=== PATIENT | male | born 1970 | race Caucasian/White ===

== ENCOUNTER 2022-08-28 13:02 | Outpatient (OUT) | payer OTHER, SELFPAY ==
[2022-08-28 13:23] LABS: Basophils Percent Auto 0.3 % (0.2-2.0); Eosinophils Absolute Auto 0.5 10^3/uL (0.0-0.7); Eosinophils Percent Auto 7.9 % (0.9-7.0); Hematocrit 46.5 % (42.0-54.0); Hemoglobin 15.4 g/dL (14.0-18.0); Immature Granulocytes Abs Auto 0.02 10^3/uL (0.00-0.03); Immature Granulocytes Pct Auto 0.3 % (0.0-0.5); Lymphocytes Absolute Auto 2.4 10^3/uL (1.2-3.8); Lymphocytes Percent Auto 35.4 % (20.5-60.0); Mean Corpuscular HGB Conc 33.1 g/dL (29.9-35.2); Mean Corpuscular Hemoglobin 30.7 pg (25.9-34.0); Mean Corpuscular Volume 92.8 fL (80.0-94.0); Mean Platelet Volume 8.3 fL (9.5-13.5); Monocytes Absolute Auto 0.5 10^3/uL (0.3-0.8); Monocytes Percent Auto 6.6 % (1.7-12.0); Neutrophils Absolute Auto 3.4 10^3/uL (1.4-6.5); Neutrophils Percent Auto 49.5 % (43.0-75.0); Platelet Count 277 10^3/uL (150-450); Red Blood Count 5.01 10^6/uL (4.70-6.10); Red Cell Distribution Width 13.3 % (11.0-15.0); White Blood Count 6.9 10^3/uL (4.0-11.0)
[2022-08-28 13:52] LABS: BUN Creatinine Ratio 9.7; Calcium 9.3 mg/dL (8.5-10.1); Carbon Dioxide 29.2 mmol/L (21.0-32.0); Chloride 101 mmol/L (98-107); Estimated GFR (African America >60 (>=60); Estimated GFR (Non-African Ame >60 (>=60); Glucose 95 mg/dL (74-106); Potassium 4.2 mmol/L (3.5-5.1); Sodium 136 mmol/L (136-145)
== END 2022-08-28 13:03 ==
LOC: LAB 13:05
PROVIDERS: PCP Family Medicine
DX: Z01.812 Encounter for preprocedural laboratory examination (principal); R91.1 Solitary pulmonary nodule
CPT/HCPCS: 36415; 80048; 85025

== ENCOUNTER 2022-12-06 13:28 | Outpatient (OUT) | payer OTHER, SELFPAY ==
--- NOTE | 2022-12-06 13:38 | CT_ITS ---
[address] [address] Patient Name: ALONA PATINO MRN: [id number] date: 1970 Sex: M Assigned Patient Location: CT Current Patient Location: CT Accession/Order Number: [id number] Exam Date: 12/06/2022 13:40 Report Date: 12/06/2022 14:13 At the request of: ARLETH ESPINO Procedure: CT chest wo con EXAM: CT scan of the chest without contrast. Dose reduction technique used: Automated exposure control and/or adjustment of the mA and/or kV according to patient size and/or use of iterative reconstruction technique. REASON FOR EXAM: Lung Nodule R91.8 COMPARISON: CT scan dated 09/06/2022 FINDINGS: 2.2 x 1.4 cm central left upper lobe solid nodule is not significantly changed. New 3 mm solid nodule in the left upper lobe (series 3, image 42). 6 mm solid left upper lobe pulmonary nodule centrally is not significantly changed. New 3.2 x 2.2 cm groundglass focal opacity in the left lower lobe. Immediately adjacent new 1.8 x 1.5 cm focal opacity left lower lobe pulmonary nodule. Posterior right upper lobe 1.2 x 0.8 cm solid nodule is not significantly changed. New anterior upper lobe focal opacity nodule (series 3, image 32) measures 1.2 x 0.7 cm. Solid 0.9 x 0.6 cm anterior right upper lobe nodule has increased in density. New focal opacity 3.0 x 2.3 cm nodule in the posterior right upper lobe with a smaller immediately adjacent focal opacity. Mixed density focal opacity in the right lower lobe is also new. No pneumothorax. No pleural effusion. No acute fractures. No definite lymphadenopathy in the chest. Centrilobular emphysema throughout both lungs. Remainder unremarkable. CT/CT chest wo con IMPRESSION: 1. Multiple new bilateral focal opacities in both lungs. These are favored to be infectious/inflammatory given the rapid interval development although malignancy is also a consideration. Recommend follow-up chest CT in 3 months. 2. Multiple additional indeterminate bilateral pulmonary nodules. 3. Emphysema. Electronically authenticated by: BERNIE WHITLEY Date: 12/06/2022 14:13
== END 2022-12-06 13:29 | disposition home or self-care (01) ==
LOC: CT 13:29
PROVIDERS: PCP Family Medicine; Visit Provider Internal Medicine
DX: R91.8 Other nonspecific abnormal finding of lung field (principal); J43.9 Emphysema, unspecified
CPT/HCPCS: 71250

== ENCOUNTER 2023-02-12 10:47 | Outpatient (OUT) | payer OTHER, SELFPAY ==
[2023-02-12 11:26] LABS: Basophils Absolute Auto 0.1 10^3/uL (0.0-0.1); Basophils Percent Auto 0.6 % (0.2-2.0); Eosinophils Absolute Auto 0.5 10^3/uL (0.0-0.7); Eosinophils Percent Auto 4.5 % (0.9-7.0); Hematocrit 46.4 % (42.0-54.0); Hemoglobin 14.8 g/dL (14.0-18.0); Immature Granulocytes Abs Auto 0.03 10^3/uL (0.00-0.03); Immature Granulocytes Pct Auto 0.3 % (0.0-0.5); Lymphocytes Absolute Auto 3.3 10^3/uL (1.2-3.8); Lymphocytes Percent Auto 32.8 % (20.5-60.0); Mean Corpuscular HGB Conc 31.9 g/dL (29.9-35.2); Mean Corpuscular Hemoglobin 31.6 pg (25.9-34.0); Mean Corpuscular Volume 99.1 fL (80.0-94.0); Mean Platelet Volume 8.8 fL (9.5-13.5); Monocytes Absolute Auto 0.7 10^3/uL (0.3-0.8); Monocytes Percent Auto 7.1 % (1.7-12.0); Neutrophils Absolute Auto 5.6 10^3/uL (1.4-6.5); Neutrophils Percent Auto 54.7 % (43.0-75.0); Platelet Count 290 10^3/uL (150-450); Red Blood Count 4.68 10^6/uL (4.70-6.10); Red Cell Distribution Width 13.5 % (11.0-15.0); White Blood Count 10.2 10^3/uL (4.0-11.0)
[2023-02-12 11:36] LABS: Estimated Average Glucose 111 mg/dL; Glycohemoglobin A1C 5.5 % (4.5-6.2)
[2023-02-12 11:53] LABS: Alanine Aminotransferase 20 U/L (16-63); Albumin Globulin Ratio 0.8; Albumin Level 3.3 g/dL (3.4-5.0); Alkaline Phosphatase 77 U/L (46-116); Anion Gap 9.4; Aspartate Amino Transferase 13 U/L (15-37); BUN Creatinine Ratio 10.5; Bilirubin Direct 0.1 mg/dL (0.0-0.2); Bilirubin Total 0.4 mg/dL (0.2-1.0); Carbon Dioxide 32.9 mmol/L (21.0-32.0); Chloride 102 mmol/L (98-107); Chol HDL Ratio 1.9; Cholesterol 191 mg/dL (<=200); Estimated GFR (African America >60 (>=60); Estimated GFR (Non-African Ame >60 (>=60); Free T3 2.32 pg/mL (2.18-3.98); Globulin 3.9 g/dL; Glucose 89 mg/dL (74-106); HDL Cholesterol 98 mg/dL (40-60); Potassium 4.3 mmol/L (3.5-5.1); Sodium 140 mmol/L (136-145); Thyroid Stimulating Hormone 3.622 uIU/mL (0.358-3.740); Total Protein 7.2 g/dL (6.4-8.2); Triglycerides 95 mg/dL (<=150)
[2023-02-12 12:16] LABS: Free T4 1.06 ng/dL (0.76-1.46)
== END 2023-02-12 10:48 | disposition home or self-care (01) ==
LOC: LAB 10:48
PROVIDERS: PCP Family Medicine; Visit Provider Family Medicine
DX: Z79.899 Other long term (current) drug therapy (principal); E55.9 Vitamin D deficiency, unspecified; E03.9 Hypothyroidism, unspecified; R73.03 Prediabetes; E78.5 Hyperlipidemia, unspecified; Z12.5 Encounter for screening for malignant neoplasm of prostate
CPT/HCPCS: 36415; 80048; 80061; 80076; 82306; 83036; 84439; 84443; 84481; 85025; G0103

== ENCOUNTER 2023-03-01 09:22 | Outpatient (OUT) | payer OTHER, SELFPAY ==
--- NOTE | 2023-03-01 09:29 | CT_ITS ---
[address] [address] Patient Name: ALONA PATINO MRN: [id number] date: 1970 Sex: M Assigned Patient Location: CT Current Patient Location: Accession/Order Number: [id number] Exam Date: 03/01/2023 09:35 Report Date: 03/02/2023 13:21 At the request of: ARLETH ESPINO Procedure: CT chest w con EXAM: CT chest w con HISTORY: Mass Of Upper Lobe Left Lung R91.9, Enlarged Lymph Nodes COMPARISON: 12/06/2022, 09/06/2022, 07/28/2022, 06/21/2022 TECHNIQUE: CT of the chest with intravenous contrast. Dose reduction techniques performed. 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 Tubes, devices, and lines: None. Lower neck: Unremarkable. Lungs/Pleura/Airways: Interval resolution of multifocal opacities with residual bronchiectatic change. No new focal opacities. Stable biapical upper lobe irregular nodules, measuring 2.2 cm on left (metabolically active) and 1.2 cm and the right. Sub-6 cm solid pulmonary nodules for instance within the left central upper lobe (59) and lateral aspect of the right lower lobe (67) are without significant interval change. Paraseptal emphysema. No pleural effusion.No pneumothorax. Clear central airways. Mediastinum: Unremarkable cardiac morphology and pericardium. No coronary artery calcifications. No enlarged thoracic lymph nodes. Vasculature: Normal in course and caliber. Upper abdomen: Unremarkable. Bones: No acute fracture. No suspicious osseous lesion. Soft tissues: Normal. CT/CT chest w con IMPRESSION: 1. Interval resolution of multifocal opacities with residual bronchiectatic change. No new focal opacities 2. Stable pulmonary nodules to include the suspicious left apical hypermetabolic 2.2 cm nodule. Unclear what appropriate follow-up (3-6 months would be reasonable) might be as this was previously recommended for biopsy. Electronically authenticated by: PASTOR TAMAYO Date: 03/02/2023 13:21
== END 2023-03-01 09:23 | disposition home or self-care (01) ==
LOC: CT 09:22
PROVIDERS: PCP Family Medicine; Visit Provider Internal Medicine
DX: R91.8 Other nonspecific abnormal finding of lung field (principal); R59.0 Localized enlarged lymph nodes
CPT/HCPCS: 71260; Q9967

== ENCOUNTER 2023-06-04 12:46 | Outpatient (OUT) | payer OTHER, SELFPAY ==
--- NOTE | 2023-06-04 12:50 | CT_ITS ---
[address] [address] Patient Name: ALONA PATINO MRN: [id number] date: 1970 Sex: M Assigned Patient Location: CT Current Patient Location: CT Accession/Order Number: [id number] Exam Date: 06/04/2023 12:55 Report Date: 06/04/2023 15:27 At the request of: ARLETH ESPINO Procedure: CT chest wo con EXAMINATION: CT chest wo con HISTORY: Mass Of Upper Lobe Of Left Lung R91.8 COMPARISON: No relevant comparison available. TECHNIQUE: Multi-planar CT images were created with IV contrast. Axial, Coronal, and Sagittal images. Dose reduction techniques were achieved by using automated exposure control and/or adjustment of mA and/or kV according to patient size and/or use of iterative reconstruction technique. FINDINGS: LUNGS: Moderate diffuse centrilobular and paraseptal emphysema with an upper lobe predominance. Scattered areas of bronchiectasis and subcentimeter density. Irregular mildly spiculated nodule identified in the left upper lobe measuring 2.5 x 1.1 cm in axial image #29, stable from the prior exam. No new pulmonary nodule or mass. PLEURA: No mass, effusion, or pneumothorax. VASCULATURE: No abnormality. WILMAR: No mass or adenopathy. MEDIASTINUM: No mass or adenopathy. CARDIAC: No enlargement, pericardial thickening, or significant calcification. AORTA: No aneurysm or dissection. CHEST WALL: No mass or axillary adenopathy. BONES: No bone lesion or fracture. LIMITED ABDOMEN: No suspicious findings. Limited images of the upper abdomen. OTHER: Negative. CT/CT chest wo con IMPRESSION: Stable emphysema Stable scattered pulmonary nodules with the largest solid nodule in the left upper lobe measuring 2.5 x 1.1 cm Electronically authenticated by: JOHN ARBOLEDA Date: 06/04/2023 15:27
== END 2023-06-04 12:47 | disposition home or self-care (01) ==
LOC: CT 12:46
PROVIDERS: PCP Family Medicine; Visit Provider Internal Medicine
DX: R91.8 Other nonspecific abnormal finding of lung field (principal); J43.9 Emphysema, unspecified
CPT/HCPCS: 71250

== ENCOUNTER 2023-06-13 12:04 | Outpatient (OUT) | payer OTHER, SELFPAY ==
--- OUTSIDE RECORDS SUMMARY | 2023-06-13 12:11 | XMS_ITS | CCD ---
Author Organization [facility] Care Team Providers Care Vacuum Bottle Assembler Name Role Phone DR DOT JOSEPH Consulting Unavailable NADERER, DR GWEN Corrales Primary Care Unavailable SAMSA ., ARLETH Admitting Unavailable SAMSA ., ARLETH Attending Unavailable SAMSA ., ARLETH Consulting Unavailable NADERER, DR GWEN Corrales Primary Care Unavailable SAMSA ., ARLETH Admitting Unavailable SAMSA ., ARLETH Attending Unavailable SAMSA ., ARLETH Consulting Unavailable SAMSA ., ARLETH Consulting Unavailable NADERER, DR GWEN Corrales Primary Care Unavailable SAMSA ., ARLETH Admitting Unavailable SAMSA ., ARLETH Attending Unavailable NADERER, DR GWEN Corrales Admitting Unavailable NADERER, DR GWEN Corrales Attending Unavailable NADERER, DR GWEN Corrales Consulting Unavailable NADERER, DR GWEN Corrales Primary Care Unavailable NADERER, DR GWEN Corrales Admitting Unavailable NADERER, DR GWEN Corrales Attending Unavailable NADERER, DR GWEN Corrales Consulting Unavailable NADERER, DR GWEN Corrales Primary Care Unavailable SAMSA ., ARLETH Consulting Unavailable NADERER, DR GWEN Corrales Primary Care Unavailable SAMSA ., ARLETH Admitting Unavailable SAMSA ., ARLETH Attending Unavailable SAMSA ., ARLETH Consulting Unavailable NADERER, DR GWEN Corrales Primary Care Unavailable SAMSA ., ARLETH Admitting Unavailable SAMSA ., ARLETH Attending Unavailable SAMSA ., ARLETH Consulting Unavailable NADERER, DR GWEN Corrales Primary Care Unavailable SAMSA ., ARLETH Admitting Unavailable SAMSA ., ARLETH Attending Unavailable ANABELL JONAS Consulting Unavailable TEGAN PAREDES Consulting Unavailable NURY BOYKIN Consulting Unavailable MEAGHAN PEREZ Consulting Unavailable Unknown, Referring Provider Unavailable Unav ailable UNKNOWN, PCP Primary Care Unavailable Rodri, Dr. Jorge Dickinson Referring Unav ailable Sykes, Ms. Jennifer Armijo Attending Unav ailable UNKNOWN, PCP Primary Care Unavailable Dr. Jorge Mace Attending Unav ailable Samsa, Dr. Arleth Miles Referring Unavailab le UNKNOWN, PCP Primary Care Unavailable Dr. Jorge Mace Admitting Unav ailable Dr. Jorge Mace Attending Unav ailable Unavailable Primary Care Provider UnavailHAIDER Pablo Attending Unavailable HAIDER SCHOFIELD Attending Unavailable HAIDER SCHOFIELD Attending Unavailable Medications Completed/Discontinued Medications Medication Drug Class(es) Dates Sig (Normalized) Sig (Original) [id number] 200 actuat albuterol 0.09 mg/actuat metered dose inhaler (1 source) beta2-Adrenergic Agonist Start: 08-24-2022 take 2 puff(s) by inhalation every four to six hours as needed Albuterol Sulfate HFA 108 (90 Base) MCG/ACT Inhalation Aerosol Solution INHALE 2 PUFFS EVERY 4-6 HOURS NEEDED. Quantity: 1 Refills: 2 Ordered: 24-Aug-2022 Jennifer Bearden Start : 24-Aug-2022 Active citalopram 20 mg oral tablet (1 source) Serotonin Reuptake Inhibitor Start: 08-24-2022 take 1 tablet by mouth once daily Citalopram Hydrobromide 20 MG Oral Tablet TAKE 1 TABLET DAILY DIRECTED. Quantity: 1 Refills: 0 Ordered: 24-Aug-2022 Jennifer Bearden Start : 24-Aug-2022 Active 60 actuat fluticasone propionate 0.25 mg/actuat / salmeterol 0.05 mg/actuat dry powder inhaler (1 source) Corticosteroid, beta2-Adrenergic Agonist Start: 08-24-2022 take 1 dose by mouth every twelve hours Fluticasone-Salmet jaylene 250-50 MCG/ACT Inhalation Aerosol Powder Breath Activated INHALE 1 DOSE BY MOUTH EVERY 12 HOURS RINSE AND SPIT AFTER USE Quantity: 1 Refills: 5 Ordered: 24-Aug-2022 Jennifer Bearden Start : 24-Aug-2022 Active levothyroxine (1 source) l-Thyroxine Start: 08-24-2022 Levothyroxine Sodium Powder USE DIRECTED. Quantity: 1 Refills: 0 Ordered: 24-Aug-2022 Jennifer Bearden Start : 24-Aug-2022 Active 7 actuat umeclidinium 0.0625 mg/actuat dry powder inhaler (1 source) Anticholinergic Start: 08-24-2022 take 1 puff(s) by inhalation once daily Incruse Ellipta 62.5 MCG/ACT Inhalation Aerosol Powder Breath Activated INHALE 1 PUFF DAILY. Quantity: 1 Refills: 5 Ordered: 24-Aug-2022 Jennifer Bearden Start : 24-Aug-2022 Active Problems Active Problems Problem Classification Problem Date Documented Date Episodic/Chronic Anxiety disorders (3 sources) Anxiety; Translations: [Anxiety state, unspecified] Onset: 09-06-2022 09-14-2022 Chronic Chronic obstructive pulmonary disease and bronchiectasis (9 sources) Centrilobular emphysema; Translations: [Chronic obstructive pulmonary disease, unspecified] Onset: 06-12-2022 Chronic Coronary atherosclerosis and other heart disease (1 source) Atherosclerotic heart disease of [place] coronary artery without angina pectoris; Translations: [Athscl heart disease of [place] coronary artery w/o ang pctrs] Onset: 09-06-2022 Chronic Disorders of lipid metabolism (7 sources) Hyperlipidemia, unspecified; Translations: [Pure hypercholesterolemia, unspecified] Onset: 07-14-2022 09-14-2022 Chronic Esophageal disorders (2 sources) Gastro-esophageal reflux disease without esophagitis; Translations: [Gastroesophageal reflux disease without esophagitis] Onset: 09-06-2022 09-14-2022 Chronic Mood disorders (1 source) Depressive disorder; Translations: [Depression, unspecified] 09-14-2022 Chronic Mood disorders (1 source) Mood disorders; Translations: [Depression, unspecified] Onset: 09-06-2022 Nutritional deficiencies (1 source) Vitamin D deficiency, unspecified; Translations: [VITAMIN D DEFICIENCY UNSPECIFIED] Onset: 07-14-2022 Chronic Other aftercare (1 source) retirement (current) use of inhaled steroids; Translations: [MANAGER ATHLETICS USE OF INHALED STEROIDS] Onset: 07-14-2022 Episodic Other lower respiratory disease (6 sources) Other nonspecific abnormal finding of lung field; Translations: [OTH NONSPECIFIC ABN FIND LNG FIELD] Onset: 07-09-2022 Episodic Other lower respiratory disease (2 sources) Nodule of lung; Translations: [Solitary pulmonary nodule] Episodic Other lower respiratory disease (4 sources) Solitary pulmonary nodule; Translations: [Solitary pulmonary nodule] Onset: 09-06-2022 Episodic Other lower respiratory disease (1 source) Other forms of dyspnea; Translations: [Other forms of dyspnea] Onset: 09-06-2022 Episodic Other lower respiratory disease (1 source) Solitary nodule of lung; Translations: [Solitary pulmonary nodule] 09-06-2022 Episodic Other lower respiratory disease (1 source) Dyspnea; Translations: [Other forms of dyspnea] 09-14-2022 Episodic Screening and history of mental health and substance abuse codes (1 source) Personal history of nicotine dependence; Translations: [PERSONAL HISTORY OF NICOTINE DEPEND] Onset: 07-14-2022 Episodic Substance-related disorders (8 sources) Nicotine dependence, cigarettes, with unspecified nicotine-induced disorders; Translations: [Nicotine dependence, cigarettes, uncomplicated] Onset: 06-21-2022 Chronic Thyroid disorders (8 sources) Hypothyroidism, unspecified; Translations: [Hypothyroidism] Onset: 01-24-2022 Chronic Unclassified (1 source) CONTACT W/AND (SUSP) EXPOS COVID-19; Translations: [CONTACT W/AND (SUSP) EXPOS COVID-19] Onset: 07-10-2022 Past or Other Problems Problem Classification Problem Date Documented Da te Episodic/Chronic Nonspecific chest pain (2 sources) Chest pain, unspecified; Translations: [Chest pain, unspecified] Onset: 12-11-2022 Episodic Other aftercare (1 source) Other longterm (current) drug therapy; Translations: [OTH MANAGER ATHLETICS CURRENT DRUG THERAPY] Onset: 01-29-2022 Episodic Other lower respiratory disease (2 sources) Shortness of breath; Translations: [Shortness of breath] Onset: 12-11-2022 Episodic Other nutritional; endocrine; and metabolic disorders (1 source) Overweight; Translations: [OVERWEIGHT] Onset: 01-29-2022 Episodic Other screening for suspected conditions (not mental disorders or infectious disease) (1 source) Encounter for screening for malignant neoplasm of prostate; Translations: [ENC SCREEN MALIG NEOPLASM PROSTATE] Onset: 01-29-2022 Episodic Residual codes; unclassified (2 sources) Tobacco use; Translations: [Tobacco use] Onset: 12-11-2022 Episodic Results Test Name Value Interpretation Reference Range Facility Orders Onlyon 05-25-2023 Orders Only [id number] Alona Hodge 1970 M Date Provider Department Center 05/25/2023 YOSEPH VICENTE DEANNA Bassett Family History Problem Relation Age of Onset Heart attack Mother Heart attack Father Other Father's Brother Family Status - Relation Status Age at Mother Father Father's Brother Normal [facility] Office Visiton 01-29-2023 Follow-up visit [id number] Alona Hodge 1970 M Date Provider Department Center 01/29/2023 HAIDER HAYDEN Family History Problem Relation Age of Onset Heart attack Mother Heart attack Father Other Father's Brother Family Status - Relation Status Age at Mother Father Father's Brother Level of Service:14220 [place] OFFICE/OUTPATIENT ESTABLISHED MOD MDM 30-39 MIN Normal [facility] Office Visiton 12-11-2022 Follow-up visit [id number] Alona Hodge 1970 M Date Provider Department Center 12/11/2022 HAIDER HAYDEN Family History Problem Relation Age of Onset Heart attack Mother Heart attack Father Other Father's Brother Family Status - Relation Status Age at Mother Father Father's Brother Level of Service:12484 [place] OFFICE/OUTPATIENT NEW MODERATE MDM 45-59 MINUTES Normal [facility] AFB Culture/Smearon 10-26-19 Mycobacterium sp identified Org specific cx Nom (Unsp spec) NO MYCOBACTERIA ISOLATED. [facility] Mycobacterium sp identified Org specific cx Nom (Unsp spec)on 10-25-2022 Microscopic observation Acid fast stain Nom (Unsp spec) Negative [facility] Fungal Culture/Smearon 09-25 Fungus identified Cx Nom (Unsp spec) NO FUNGI ISOLATED. [facility] Fungus identified Cx Nom (Un sp spec)on 09-25-2022 Fungus identified Fungus stain Nom (Unsp spec) Negative [facility] CYTOLOGY NON-CUSTOMER SERVICE SECURITY OFFICER RESULTSon 0 09-12-2022 Pathology Report Patient Name ALONA HODGE Date of Procedure: 09/06/2022 Date Reported: 09/12/2022 Date Received: 09/06/2022 Date of / Sex 1970 (Age: 52) / M Race: UNKNOWN* Submitting Physician: JORGE MACE MD Attending Physician: ARLETH ESPINO, Other External # FINAL CYTOLOGICAL INTERPRETATION A. FINE NEEDLE ASPIRATION LUNG - LEFT UPPER LOBE NODULE; CYTOLOGY AND CELL BLOCK: -- NON-DIAGNOSTIC. SPECIMEN CONSISTS OF SCATTERED MACROPHAGES, SEE NOTE NOTE: There is scattered macrophages and the cell block shows scant acellular debris. GMS and PAS stains for fungus are negative. AFB is negative for acid fast bacilli. Also, please refer to concurrent biopsy surgical pathology report ([id number]). Register In Chancery: Dr. Slava Mooney consulted on the GMS ans PAS fungus stain. B. BRONCHIAL TRIPLE NEEDLE BRUSH OF LEFT UPPER LOBE NODULE; CYTOLOGY AND CELL BLOCK: -- NON-DIAGNOSTIC. SPECIMEN CONSISTS OF BENIGN LUNG ELEMENTS. C. FINE NEEDLE ASPIRATION 4R LYMPH NODE; CYTOLOGY AND CELL BLOCK: -- NO MALIGNANT CELLS IDENTIFIED. -- LYMPHOID SAMPLE. D. FINE NEEDLE ASPIRATION 4L LYMPH NODE; CYTOLOGY AND CELL BLOCK: -- NO MALIGNANT CELLS IDENTIFIED. -- LYMPHOID SAMPLE. E. FINE NEEDLE ASPIRATION 7 LYMPH NODE; CYTOLOGY AND CELL BLOCK: -- NO MALIGNANT CELLS IDENTIFIED. -- LYMPHOID SAMPLE. F. FINE NEEDLE ASPIRATION 11L LYMPH NODE; CYTOLOGY AND CELL BLOCK: -- NO MALIGNANT CELLS IDENTIFIED. -- LYMPHOID SAMPLE. The gross and/or microscopic findings were reviewed in conjunction with pathology resident, RAMANA Cardoso. Slide(s) initially screened by a [employer] Worker at [place] [address] Electronically Signed Out By RUTHY BAEZ MD By the signature on this report, the individual or group listed as making the Final Interpretation/Diagn osis certifies that they have reviewed this case. Slide(s) initially screened by a [employer] Worker at [facility] Diagnostic interpretation performed at [address] [place] [address] Rapid Evaluation Fine Needle Aspiration Immediate Read Result: A. Non-diagnostic. C. Lymphoid sample, NMCI. D. Lymphoid sample, NMCI. E. Lymphoid sample, NMCI. F. Lymphoid sample, NMCI. Brushing Immediate Read Result: B. Non-diagnostic. Pathologist: Lisa Sanford M.D. Date: 09.06.2022 Clinical History LUNG LEFT UPPER LOBE NODULE Source of Specimen A: FINE NEEDLE ASPIRATION LUNG - LEFT UPPER LOBE NODULE B: BRONCHIAL TRIPLE NEEDLE BRUSH OF LEFT UPPER LOBE NODULE C: FINE NEEDLE ASPIRATION 4R LYMPH NODE D: FINE NEEDLE ASPIRATION 4L LYMPH NODE E: FINE NEEDLE ASPIRATION 7 LYMPH NODE F: FINE NEEDLE ASPIRATION 11L LYMPH NODE Specimen Submitted as: A: FINE NEEDLE ASPIRATION LUNG - LEFT UPPER LOBE NODULE Pap stain Non-Director Of Cardiology, Pap stain Non-Director Of Cardiology, Diff-Quik stain Non-Director Of Cardiology, Diff-Quik stain Non-Director Of Cardiology, Diff-Quik stain Non-Director Of Cardiology, CELL BLOCK, H&E, Initial, H GOMORI'S METHENAMINE SILVER, H ACID FAST BACILLI, ZIEHL-NEELSON, H RECUT H&E, H PAS-FUNGAL, H RECUT H&E B: BRONCHIAL TRIPLE NEEDLE BRUSH OF LEFT UPPER LOBE NODULE Pap stain Non-Director Of Cardiology, Diff-Quik stain Non-Director Of Cardiology, CELL BLOCK, H&E, Initial C: FINE NEEDLE ASPIRATION 4R LYMPH NODE Pap stain Non-Director Of Cardiology, Diff-Quik stain Non-Director Of Cardiology, CELL BLOCK, H&E, Initial D: FINE NEEDLE ASPIRATION 4L LYMPH NODE Pap stain Non-Director Of Cardiology, Diff-Quik stain Non-Director Of Cardiology, CELL BLOCK, H&E, Initial E: FINE NEEDLE ASPIRATION 7 LYMPH NODE Pap stain Non-Director Of Cardiology, Diff-Quik stain Non-Director Of Cardiology, CELL BLOCK, H&E, Initial F: FINE NEEDLE ASPIRATION 11L LYMPH NODE Pap stain Non-Director Of Cardiology, Diff-Quik stain Non-Director Of Cardiology, CELL BLOCK, H&E, Initial Gross Description A. FINE NEEDLE ASPIRATION LUNG - LEFT UPPER LOBE NODULE: RECEIVED 5 DIRECT SMEARS (3 AIR-DRIED DIFF-QUIK AND 2 SPRAY-FIXED) AND 35cc OF RED CLOUDY NEEDLE RINSE IN CYTOLYT WITH PARTICLES. B. BRONCHIAL TRIPLE NEEDLE BRUSH OF LEFT UPPER LOBE NODULE: RECEIVED 2 DIRECT SMEARS (1 AIR-DRIED DIFF-QUIK AND 1 SPRAY-FIXED) AND 30cc OF RED CLEAR NEEDLE RINSE IN CYTOLYT WITH PARTICLES AND BRUSH. C. FINE NEEDLE ASPIRATION 4R LYMPH NODE: RECEIVED 2 DIRECT SMEARS (1 AIR-DRIED DIFF-QUIK AND 1 SPRAY-FIXED) AND 30cc OF RED CLEAR NEEDLE RINSE IN CYTOLYT WITH PARTICLES. D. FINE NEEDLE ASPIRATION 4L LYMPH NODE: RECEIVED 2 DIRECT SMEARS (1 AIR-DRIED DIFF-QUIK AND 1 SPRAY-FIXED) AND 30cc OF RED CLEAR NEEDLE RINSE IN CYTOLYT WITH PARTICLES. E. FINE NEEDLE ASPIRATION 7 LYMPH NODE: RECEIVED 2 DIRECT SMEARS (1 AIR-DRIED DIFF-QUIK AND 1 SPRAY-FIXED) AND 30cc OF RED HAZY NEEDLE RINSE IN CYTOLYT WITH PARTICLES. F. FINE NEEDLE ASPIRATION 11L LYMPH NODE: RECEIVED 2 DIRECT SMEARS (1 AIR-DRIED DIFF-QUIK AND 1 SPRAY-FIXED) AND 30cc OF RED HAZY NEEDLE RINSE IN CYTOLYT WITH PARTICLES. [facility] Depa (more content not included)... [facility] SURGICAL PATHOLOGY RESULTSon 09-12-2022 Pathology Report Name ALONA HODGE Pathologist: JUDIE WHITLEY MD Date of Procedure: 09/06/2022 Date Received: 09/06/2022 Date Reported 09/12/2022 Submitting Physician: JORGE MACE MD Location: [facility] Copy To/Referring/Attendi ng: ARLETH ESPINO, DO Other External # FINAL DIAGNOSIS LUNG, LEFT UPPER LOBE NODULE, TRANSBRONCHIAL BIOPSY: --FRAGMENTS OF ALVEOLATED LUNG PARENCHYMA WITH INTERSTITIAL FIBROSIS AND PATCHY CHRONIC INFLAMMATION ADMIXED WITH BLOOD AND FIBRIN. SEE NOTE. --SEE CONCURRENT CYTOLOGY SPECIMEN [id number]. Note: Deeper levels were reviewed. The findings are nonspecific. Clinical correlation with regards to adequacy of sampling is recommended. halie The gross and/or microscopic findings were reviewed in conjunction with pathology resident, Lucia Leal M.D., PhD. Electronically Signed Out By JUDIE WHITLEY MD/HALIE By the signature on this report, the individual or group listed as making the Final Interpretation/Diagn osis certifies that they have reviewed this case. Diagnostic interpretation performed at [place] [address] Clinical History: PIPER nodule Specimens Submitted As: A: PIPER NODULE TBBX Gross Description: Received in formalin, labeled with the patient s name and hospital number and PIPER nodule TBBX , are multiple minute pink-white, soft tissue fragments aggregating to 0.8 x 0.3 x 0.3 cm. The specimen is submitted in toto in one cassette. DMB dmb/09/06/2022 [facility] Department of Pathology [address] [place] [address] Bacteria identified Cx Nom ( Unsp spec)on 09-08-2022 Microscopic observation Gram stain Nom (Unsp spec) 1+ GRANULOCYTES. NO ORGANISMS SEEN. [facility] Tissue/Wound Culture/Smearon 09-08-2022 Bacteria identified Cx Nom (Unsp spec) NO GROWTH AEROBICALLY OR ANAEROBICALLY. [facility] AFB CULTURE/SM, MISCon 09-06 AFB CULTURE/SM, MISC PATIENT: ALONA HODGE LOCATION: [facility]#: [id number] : [birth year] AGE: SEX: M ORDERED BY: JORGE MACE SOURCE: BIOPSY COLLECTED: 09/06/22 17:00 ANTIBIOTICS AT PRICILA.: RECEIVED : 09/06/22 17:06 SITE: PIPER NODULE CORE R E S U L T S AFB SMEAR FINAL 09/07/22 13:05 ACID FAST SMEAR - NEGATIVE. AFB CULTURE/SM, MISC FINAL 10/25/22 14:36 NO MYCOBACTERIA ISOLATED. Normal [facility] Comment on above: Performed By: #### A FBC #### [facility] [address] [place] [address] Bronchoscopyon 09-06-2022 Jorge Mace MD - 09/11/2022 Patient Name: Alona Hodge Procedure Date: 09/06/2022 11:36 AM Date of : 1970 Room: Bronchoscopy Room 1 Attending MD: Jorge Mace MD, [id number] Procedure: Bronchoscopy Indications: Left upper lobe nodule Providers: Jorge Mace MD (Doctor), Michelle Borden RN (Nurse), Corinne Franco, Internet Site Designer (Internet Site Designer), Steven Mariscal MD (Fellow) Referring MD: Arleth Espino DO (Referring MD) Medicines: General Anesthesia, See the Anesthesia note for documentation of the administered medications Complications: No immediate complications Procedure: Pre-Anesthesia Assessment: - A History and Physical has been performed. Patient meds and allergies have been reviewed. The risks and benefits of the procedure and the sedation options and risks were discussed with the patient. All questions were answered and informed consent was obtained. Patient identification and proposed procedure were verified prior to the procedure by the physician, the nurse and the friend of the court in the procedure room at 11:36 AM. Mental Status Examination: normal. Airway Examination: Please refer to anesthesia staff note. Respiratory Examination: clear to auscultation. CV Examination: normal. ASA Grade Assessment: II - A patient with mild systemic disease. After reviewing the risks and benefits, the patient was deemed in satisfactory condition to undergo the procedure. The anesthesia plan was to use general anesthesia. Immediately prior to administration of medications, the patient was re-assessed for adequacy to receive sedatives. The heart rate, respiratory rate, oxygen saturations, blood pressure, adequacy of pulmonary ventilation, and response to care were monitored throughout the procedure. The physical status of the patient was re-assessed after the procedure. After obtaining informed consent, the therapeutic bronchoscope was introduced through the mouth, via the endotracheal tube (the patient was intubated for the procedure) and advanced to the tracheobronchial tree. the linear ultrasound bronchoscope was introduced through the mouth, via the endotracheal tube (the patient was intubated for the procedure) and advanced to the tracheobronchial tree. The procedure was accomplished without difficulty. The patient tolerated the procedure well. Total fluoroscopy time was 7 minutes, 4 seconds. The total duration of the procedure was 1 hour and 13 minutes. Findings: The endotracheal tube is in good position. The trachea is of normal caliber. The arcadio is sharp. The tracheobronchial tree was examined to at least the first subsegmental level. Bronchial mucosa and anatomy are normal; there are no endobronchial lesions, and no secretions. Electromagnetic navigation bronchoscopy utilizing the PlanStan system with iLogic upgrade was performed. The CT scan was used for planning purposes. A virtual bronchoscopic image was generated using the planning software. The target in the left upper lobe was marked. A nodule 2.2 cm in size was found and a pathway was created. After a complete airway exam, the locatable guide/extended working channel was inserted and an automatic registration was performed. The navigation phase was then begun to locate the target lesion(s). Positioning was confirmed using fluoroscopy and centrally (in relation to the lesion) was confirmed using the Olympus radial probe US catheter. The locatable guide was removed from the extended working channel. A peripheral radial ultrasound probe with a sheath was utilized in order to assist with guiding the biopsy needle and better localize the lesion in the left upper lobe. Transbronchial needle aspirations of a nodule were performed in the left upper lobe using an Olympus PeriView Flex 21 gauge needle and sent for routine cytology and bacterial, AFB and fungal analysis. The procedure was guided by fluoroscopy. Transbronchial needle aspiration technique was selected because the sampling site was not visible endoscopically. The sampling device penetrated the full thickness of the bronchial wall to obtain the needle aspiration of lung tissue. 6 samples were obtained. Fluoroscopy guided fluoroscopically guided transbronchial brushings of a nodule were obtained in the left upper lobe with a triple needle brush and sent for routine cytology. Two samples were obtained. Rapid On-Site Evaluation (MATEO): Preliminary cytology of the lesion in the left upper lobe was non-diagnostic. Transbronchial biopsies of a nodule were performed in the left upper lobe using forceps and sent for histopathology examination. The procedure was guided by fluoroscopy. Transbronchial biopsy technique was selected because the sampling site was not visible endoscopically. The [employer] (more content not included)... [facility] Work Phone: Bronchoscopy PATIENTNAME Patient Name: Alona Hodge EXAMDATE Procedure Date: 09/06/2022 11:36 AM PATIENTID PATIENTACCOUNTNUM PATIENTDOB Date of : 1970 PATIENTROOM Room: Bronchoscopy Room 1 PROVDR Attending MD: Jorge Mace MD, [id number] ENDOPROCEDURENAME Procedure: Bronchoscopy INDICATION Indications: Left upper lobe nodule PRIMARYPROVIDER Providers: Jorge Mace MD (Doctor), Michelle Borden RN (Nurse), Corinne Franco, Internet Site Designer (Internet Site Designer), Steven Mariscal MD (Fellow) EDREFPROVIDER Referring MD: Arleth Espino DO (Referring MD) CURRENT_MEDS Medicines: General Anesthesia, See the Anesthesia note for documentation of the administered medications COMPLIC Complications: No immediate complications ENDOPROCEDURETEXT Procedure: Pre-Anesthesia Assessment: - A History and Physical has been performed. Patient meds and allergies have been reviewed. The risks and benefits of the procedure and the sedation options and risks were discussed with the patient. All questions were answered and informed consent was obtained. Patient identification and proposed procedure were verified prior to the procedure by the physician, the nurse and the friend of the court in the procedure room at 11:36 AM. Mental Status Examination: normal. Airway Examination: Please refer to anesthesia staff note. Respiratory Examination: clear to auscultation. CV Examination: normal. ASA Grade Assessment: II - A patient with mild systemic disease. After reviewing the risks and benefits, the patient was deemed in satisfactory condition to undergo the procedure. The anesthesia plan was to use general anesthesia. Immediately prior to administration of medications, the patient was re-assessed for adequacy to receive sedatives. The heart rate, respiratory rate, oxygen saturations, blood pressure, adequacy of pulmonary ventilation, and response to care were monitored throughout the procedure. The physical status of the patient was re-assessed after the procedure. After obtaining informed consent, the therapeutic bronchoscope was introduced through the mouth, via the endotracheal tube (the patient was intubated for the procedure) and advanced to the tracheobronchial tree. the linear ultrasound bronchoscope was introduced through the mouth, via the endotracheal tube (the patient was intubated for the procedure) and advanced to the tracheobronchial tree. The procedure was accomplished without difficulty. The patient tolerated the procedure well. Total fluoroscopy time was 7 minutes, 4 seconds. The total duration of the procedure was 1 hour and 13 minutes. FINDING Findings: The endotracheal tube is in good position. The trachea is of normal caliber. The arcadio is sharp. The tracheobronchial tree was examined to at least the first subsegmental level. Bronchial mucosa and anatomy are normal; there are no endobronchial lesions, and no secretions. Electromagnetic navigation bronchoscopy utilizing the PlanStan system with iLogic upgrade was performed. The CT scan was used for planning purposes. A virtual bronchoscopic image was generated using the planning software. The target in the left upper lobe was marked. A nodule 2.2 cm in size was found and a pathway was created. After a complete airway exam, the locatable guide/extended working channel was inserted and an automatic registration was performed. The navigation phase was then begun to locate the target lesion(s). Positioning was confirmed using fluoroscopy and centrally (in relation to the lesion) was confirmed using the Olympus radial probe US catheter. The locatable guide was removed from the extended working channel. A peripheral radial ultrasound probe with a sheath was utilized in order to assist with guiding the biopsy needle and better localize the lesion in the left upper lobe. Transbronchial needle aspirations of a nodule were performed in the left upper lobe using an Olympus PeriView Flex 21 gauge needle and sent for routine cytology and bacterial, AFB and fungal analysis. The procedure was guided by fluoroscopy. Transbronchial needle aspiration technique was selected because the sampling site was not visible endoscopically. The sampling device penetrated the full thickness of the bronchial wall to obtain the needle aspiration of lung tissue. 6 samples were obtained. Fluoroscopy guided fluoroscopically guided transbronchial brushings of a nodule were obtained in the left upper lobe with a triple needle brush and sent for routine cytology. Two samples were obtained. Rapid On-Site Evaluation (MATEO): Preliminary cytology of the lesion in the left upper lobe was non-diagnostic. Transbronchial biopsies of a nodule were performed in the left upper lobe using forceps and sent for histopathology examination. The procedure was guided by fluoroscopy. Tr (more content not included)... Normal [facility] Radiology Study observation (narrative) [facility] Work Phone: BronchoscopyOrdered By: Romulo Mace on 09-06-[address] [facility] Work Phone: FUNGAL CULTURE/SM, MISCon FUNGAL CULTURE/SM, MISC PATIENT: ALONA HODGE LOCATION: [facility]#: [id number] : 66 AGE: SEX: M ORDERED BY: JORGE MACE SOURCE: BIOPSY COLLECTED: 09/06/22 17:00 ANTIBIOTICS AT PRICILA.: RECEIVED : 09/06/22 17:05 SITE: PIPER NODULE CORE R E S U L T S FUNGAL SMEAR FINAL 09/07/22 10:54 FLUORESCENT FUNGAL STAIN: NEGATIVE FUNGAL CULTURE/SM, MISC FINAL 09/25/22 11:16 NO FUNGI ISOLATED. Normal [facility] Comment on above: Performed By: #### F [facility] #### [facility] [address] [place] [address] MISCELLANEOUS CULT./SM.BACT. on 09-06-2022 MISCELLANEOUS CULT./SM.BACT. PATIENT: ALONA HODGE LOCATION: [facility]#: [id number] : 66 AGE: SEX: M ORDERED BY: JORGE MACE SOURCE: BIOPSY COLLECTED: 09/06/22 17:21 ANTIBIOTICS AT PRICILA.: RECEIVED : 09/06/22 17:21 SITE: PIPER NODULE CORE R E S U L T S GRAM STAIN FINAL 09/06/22 18:21 1+ GRANULOCYTES. NO ORGANISMS SEEN. MISCELLANEOUS CULT./SM.BACT. FINAL 09/08/22 08:50 NO GROWTH AEROBICALLY OR ANAEROBICALLY. Normal [facility] Comment on above: Performed By: #### M [facility] #### [facility] [address] [place] [address] No Panel Informationon 09-06 [email or web address] [id number] [email or web address]} [facility] Work Phone: [facility] Work Phone: TH CT CHEST without FOR HEATHER BRONC PLANNINGon 09-06-2022 CT CHEST without FOR HEATHER BRONC PLANNING Patient Name: ALONA HODGE STUDY: TH CT CHEST WITHOUT FOR HEATHER BRONC PLANNING; 09/06/2022 10:35 am INDICATION: Lung Nodule R91.1: Lung nodule. COMPARISON: None. ACCESSION NUMBER(S): [id number] ORDERING CLINICIAN: JORGE MACE TECHNIQUE: Helical data acquisition of the chest was obtained without IV contrast material. Images were reformatted in axial, coronal, and sagittal planes. FINDINGS: LUNGS AND AIRWAYS: The trachea and central airways are patent. No endobronchial lesion. There is moderate to severe upper lung predominant emphysema with bullous changes in the lung apices There is a 2.2 x 1.3 cm left upper lobe spiculated nodule seen in image 66/344. Slightly more inferiorly there is a 2.0 x 1.4 cm spiculated nodule, image 76/344. 7 mm left upper lobe lobe nodular density, image 114/344 6 mm left upper lobe nodule, image 173/344. 6 mm left upper lobe nodule, image 175/344 4 mm left upper lobe nodule, image 187/344 4 mm left lower lobe nodule, image 195/344 5 mm left lower lobe nodule, image 222/344 10 x 8 mm right upper lobe nodule, image 85/344. 4 mm right upper lobe nodule, image 135/344. 4 mm right lower lobe nodule, image 204/344. Multiple additional scattered pulmonary nodules are annotated on PACs. MEDIASTINUM AND WILMAR, LOWER NECK AND AXILLA: The visualized thyroid gland is within normal limits. No evidence of thoracic lymphadenopathy by CT criteria. Esophagus appears within normal limits as seen. HEART AND VESSELS: The thoracic aorta is of normal course and caliber with mild vascular calcifications. Main pulmonary artery and its branches are normal in caliber. Mild coronary artery calcification the study is not optimized for evaluation of coronary arteries. The cardiac chambers are not enlarged. No evidence of pericardial effusion. UPPER ABDOMEN: The visualized subdiaphragmatic structures demonstrate no remarkable findings. CHEST WALL AND OSSEOUS STRUCTURES: There are no suspicious osseous lesions. Multilevel degenerative changes are present IMPRESSION: 1. Multiple pulmonary nodules in bilateral lungs including two dominant left upper lobe nodules measuring 2.2 x 1.3 cm and 2.0 x 1.4 cm in the left upper lobe and 1.0 x 0.8 cm in the right upper lobe. Malignancy cannot be excluded. Correlate with prior imaging if available to assess for stability. Consider correlation with PET-CT and tissue sampling if not already performed. 2. Multiple additional scattered pulmonary nodules in bilateral lungs measuring up to 7 mm as described above. Recommend continued attention on follow-up study. 3. Moderate to severe upper lung predominant emphysema. 4. Mild coronary artery calcification. Electronically signed by: KATYA JOHNSON MD Normal [facility] Cytologyon 09-06-2022 [facility] Cytology Patient Name ALONA HODGE Date of Procedure: 09/06/2022 Date Reported: 09/12/2022 Date Received: 09/06/2022 Date of / Sex 1970 (Age: 52) / M Race: UNKNOWN* Submitting Physician: JORGE MACE MD Attending Physician: ARLETH ESPINO, Other External # FINAL CYTOLOGICAL INTERPRETATION A. FINE NEEDLE ASPIRATION LUNG - LEFT UPPER LOBE NODULE; CYTOLOGY AND CELL BLOCK: -- NON-DIAGNOSTIC. SPECIMEN CONSISTS OF SCATTERED MACROPHAGES, SEE NOTE NOTE: There is scattered macrophages and the cell block shows scant acellular debris. GMS and PAS stains for fungus are negative. AFB is negative for acid fast bacilli. Also, please refer to concurrent biopsy surgical pathology report ([id number]). Register In Chancery: Dr. Slava Mooney consulted on the GMS ans PAS fungus stain. B. BRONCHIAL TRIPLE NEEDLE BRUSH OF LEFT UPPER LOBE NODULE; CYTOLOGY AND CELL BLOCK: -- NON-DIAGNOSTIC. SPECIMEN CONSISTS OF BENIGN LUNG ELEMENTS. C. FINE NEEDLE ASPIRATION 4R LYMPH NODE; CYTOLOGY AND CELL BLOCK: -- NO MALIGNANT CELLS IDENTIFIED. -- LYMPHOID SAMPLE. D. FINE NEEDLE ASPIRATION 4L LYMPH NODE; CYTOLOGY AND CELL BLOCK: -- NO MALIGNANT CELLS IDENTIFIED. -- LYMPHOID SAMPLE. E. FINE NEEDLE ASPIRATION 7 LYMPH NODE; CYTOLOGY AND CELL BLOCK: -- NO MALIGNANT CELLS IDENTIFIED. -- LYMPHOID SAMPLE. F. FINE NEEDLE ASPIRATION 11L LYMPH NODE; CYTOLOGY AND CELL BLOCK: -- NO MALIGNANT CELLS IDENTIFIED. -- LYMPHOID SAMPLE. The gross and/or microscopic findings were reviewed in conjunction with pathology resident, RAMANA Cardoso. Slide(s) initially screened by a [employer] Worker at [place] [address] Electronically Signed Out By RUTHY BAEZ MD By the signature on this report, the individual or group listed as making the Final Interpretation/Diagn osis certifies that they have reviewed this case. Slide(s) initially screened by a [employer] Worker at [facility] Diagnostic interpretation performed at [address] [place] [address] Rapid Evaluation Fine Needle Aspiration Immediate Read Result: A. Non-diagnostic. C. Lymphoid sample, NMCI. D. Lymphoid sample, NMCI. E. Lymphoid sample, NMCI. F. Lymphoid sample, NMCI. Brushing Immediate Read Result: B. Non-diagnostic. Pathologist: Lisa Sanford M.D. Date: 09.06.2022 Clinical History LUNG LEFT UPPER LOBE NODULE Source of Specimen A: FINE NEEDLE ASPIRATION LUNG - LEFT UPPER LOBE NODULE B: BRONCHIAL TRIPLE NEEDLE BRUSH OF LEFT UPPER LOBE NODULE C: FINE NEEDLE ASPIRATION 4R LYMPH NODE D: FINE NEEDLE ASPIRATION 4L LYMPH NODE E: FINE NEEDLE ASPIRATION 7 LYMPH NODE F: FINE NEEDLE ASPIRATION 11L LYMPH NODE Specimen Submitted as: A: FINE NEEDLE ASPIRATION LUNG - LEFT UPPER LOBE NODULE Pap stain Non-Director Of Cardiology, Pap stain Non-Director Of Cardiology, Diff-Quik stain Non-Director Of Cardiology, Diff-Quik stain Non-Director Of Cardiology, Diff-Quik stain Non-Director Of Cardiology, CELL BLOCK, H AND E, Initial, H GOMORI'S METHENAMINE SILVER, H ACID FAST BACILLI, ZIEHL-NEELSON, H RECUT H AND E, H PAS-FUNGAL, H RECUT H AND E B: BRONCHIAL TRIPLE NEEDLE BRUSH OF LEFT UPPER LOBE NODULE Pap stain Non-Director Of Cardiology, Diff-Quik stain Non-Director Of Cardiology, CELL BLOCK, H AND E, Initial C: FINE NEEDLE ASPIRATION 4R LYMPH NODE Pap stain Non-Director Of Cardiology, Diff-Quik stain Non-Director Of Cardiology, CELL BLOCK, H AND E, Initial D: FINE NEEDLE ASPIRATION 4L LYMPH NODE Pap stain Non-Director Of Cardiology, Diff-Quik stain Non-Director Of Cardiology, CELL BLOCK, H AND E, Initial E: FINE NEEDLE ASPIRATION 7 LYMPH NODE Pap stain Non-Director Of Cardiology, Diff-Quik stain Non-Director Of Cardiology, CELL BLOCK, H AND E, Initial F: FINE NEEDLE ASPIRATION 11L LYMPH NODE Pap stain Non-Director Of Cardiology, Diff-Quik stain Non-Director Of Cardiology, CELL BLOCK, H AND E, Initial Gross Description A. FINE NEEDLE ASPIRATION LUNG - LEFT UPPER LOBE NODULE: RECEIVED 5 DIRECT SMEARS (3 AIR-DRIED DIFF-QUIK AND 2 SPRAY-FIXED) AND 35cc OF RED CLOUDY NEEDLE RINSE IN CYTOLYT WITH PARTICLES. B. BRONCHIAL TRIPLE NEEDLE BRUSH OF LEFT UPPER LOBE NODULE: RECEIVED 2 DIRECT SMEARS (1 AIR-DRIED DIFF-QUIK AND 1 SPRAY-FIXED) AND 30cc OF RED CLEAR NEEDLE RINSE IN CYTOLYT WITH PARTICLES AND BRUSH. C. FINE NEEDLE ASPIRATION 4R LYMPH NODE: RECEIVED 2 DIRECT SMEARS (1 AIR-DRIED DIFF-QUIK AND 1 SPRAY-FIXED) AND 30cc OF RED CLEAR NEEDLE RINSE IN CYTOLYT WITH PARTICLES. D. FINE NEEDLE ASPIRATION 4L LYMPH NODE: RECEIVED 2 DIRECT SMEARS (1 AIR-DRIED DIFF-QUIK AND 1 SPRAY-FIXED) AND 30cc OF RED CLEAR NEEDLE RINSE IN CYTOLYT WITH PARTICLES. E. FINE NEEDLE ASPIRATION 7 LYMPH NODE: RECEIVED 2 DIRECT SMEARS (1 AIR-DRIED DIFF-QUIK AND 1 SPRAY-FIXED) AND 30cc OF RED HAZY NEEDLE RINSE IN CYTOLYT WITH PARTICLES. F. FINE NEEDLE ASPIRATION 11L LYMPH NODE: RECEIVED 2 DIRECT SMEARS (1 AIR-DRIED DIFF-QUIK AND 1 SPRAY-FIXED) AND 30cc OF RED HAZY NEEDLE RINSE IN CYTOLYT WITH PARTICLES. [facility] Department of Patholo (more content not included)... Normal [facility] Comment on above: Performed By: #### C #### [facility] Cytology [address] [place], [place] [id number] [facility] Surgical Pathology Depar tmenton 09-06-2022 [facility] Surgical Pathology Department Name ALONA HODGE Pathologist: JUDIE WHITLEY MD Date of Procedure: 09/06/2022 Date Received: 09/06/2022 Date Reported 09/12/2022 Submitting Physician: JORGE MACE MD Location: [facility] Copy To/Referring/Attendi ng: ARLETH ESPINO, DO Other External # FINAL DIAGNOSIS LUNG, LEFT UPPER LOBE NODULE, TRANSBRONCHIAL BIOPSY: --FRAGMENTS OF ALVEOLATED LUNG PARENCHYMA WITH INTERSTITIAL FIBROSIS AND PATCHY CHRONIC INFLAMMATION ADMIXED WITH BLOOD AND FIBRIN. SEE NOTE. --SEE CONCURRENT CYTOLOGY SPECIMEN [id number]. Note: Deeper levels were reviewed. The findings are nonspecific. Clinical correlation with regards to adequacy of sampling is recommended. halie The gross and/or microscopic findings were reviewed in conjunction with pathology resident, Lucia Leal M.D., PhD. Electronically Signed Out By JUDIE WHITLEY MD/HALIE By the signature on this report, the individual or group listed as making the Final Interpretation/Diagn osis certifies that they have reviewed this case. Diagnostic interpretation performed at [address] [place] [id number] Clinical History: PIPER nodule Specimens Submitted As: A: PIPER NODULE TBBX Gross Description: Received in formalin, labeled with the patient?s name and hospital number and PIPER nodule TBBX , are multiple minute pink-white, soft tissue fragments aggregating to 0.8 x 0.3 x 0.3 cm. The specimen is submitted in toto in one cassette. DMB dmb/09/06/2022 [facility] Department of Pathology [id number] [place] [address] Normal [facility] Comment on above: Performed By: #### U [facility] #### [facility] Surgical Pathology Department [address] [facility] [address] Initial Visit (Pulmonary Med icine)on 08-24-2022 Initial Visit (Pulmonary Medicine) Diagnoses/Problems Lung nodule (793.11) (R91.1) COPD (chronic obstructive pulmonary disease) (496) (J44.9) Orders Start: Citalopram Hydrobromide 20 MG Oral Tablet (CeleXA); TAKE 1 TABLET DAILY DIRECTED Rx By: Jennifer Sykes; Dispense: 1 Days ; #:1 Tablet; Refill: 0;For: Anxiety; ZACHARY = N; Record Start: Albuterol Sulfate HFA 108 (90 Base) MCG/ACT Inhalation Aerosol Solution; INHALE 2 PUFFS EVERY 4-6 HOURS NEEDED Rx By: Jennifer Sykes; Dispense: 0 Days ; #:1 X 8.5 GM Inhaler; Refill: 2;For: COPD (chronic obstructive pulmonary disease); ZACHARY = N; Record Start: Fluticasone-Salmeter ol 250-50 MCG/ACT Inhalation Aerosol Powder Breath Activated; INHALE 1 DOSE BY MOUTH EVERY 12 HOURS RINSE AND SPIT AFTER USE Rx By: Jennifer Sykes; Dispense: 0 Days ; #:1 X 60 Each Pack; Refill: 5;For: COPD (chronic obstructive pulmonary disease); ZACHARY = N; Record Start: Incruse Ellipta 62.5 MCG/ACT Inhalation Aerosol Powder Breath Activated; INHALE 1 PUFF DAILY Rx By: Jennifer Sykes; Dispense: 30 Days ; #:1 X 30 Each Pack; Refill: 5;For: COPD (chronic obstructive pulmonary disease); AZCHARY = N; Record Start: Levothyroxine Sodium Powder; USE DIRECTED Rx By: Jennifer Sykes; Dispense: 0 Days ; #:1 Gram; Refill: 0;For: Hypothyroidism; ZACHARY = N; Record Patient Discussion/Summary Patient's visit was converted to a telephone visit given current COVID- 19 pandemic. Mr. Hodge is a 52 year old male (former [id number] pack years ) here for initial evaluation of PIPER nodule. 1. PIPER nodule: PET avid - plan for bronchoscopy with biopsy - labwork prior to procedure I explained the procedure to the patient. We discussed that the bronchoscopy will be performed by a member of the Interventional Pulmonary Team, depending on scheduling and provider availability. We also discussed that the IP providers function as a team and not infrequently may have to fill in for one another if there are emergent issues that need attention at the same time. The patient / family expressed understanding and agreed to proceed. All questions were answered. Patient's visit was converted to a telephone visit given current COVID- 19 pandemic. Spoke with the patient on the phone for 12 minutes. Thank you for visiting the Pulmonary clinic today! Jennifer Petersenormick ROLL FINISHER [phone] History of Present Illness Patient's visit was converted to a telephone visit given current COVID- 19 pandemic. Mr. Hodge is a 52 year old male (former [id number] pack years ) here for initial evaluation of PIPER nodule. HPI: He has a history of COPD. He uses incruse daily and advair twice daily - albuterol once a day. He has a cough - productive with clear/yellow mucous. He will notice intermittent wheezing. He has NEAL with going up stairs/hill. He denies any SOB at rest, allergies, or CP. He has GERD - has had since he was a kid 2 x week. He does not take anything over the counter for it. Previous pulmonary history: He was previously told he has COPD. He currently is on no supplemental oxygen. He last needed steroids/antibiotics for his breathing last month. Inhalers/nebulized medications: advair, incruse, albuterol Hospitalization History: He has not been hospitalized over the last year for breathing related problem. Sleep history: Denies snoring, apnea, feeling tired during the day or taking naps during the day. 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 Eyes: No double vision, no floaters, no dry eyes. ENT: See HPI. Neck: No neck stiffness. Cardiovascular: No sharp chest pain, no heart racing, no leg swelling. Respiratory: as noted in HPI. Gastrointestinal: No nausea, no vomiting, no diarrhea. Musculoskeletal: No joint pain, no back pain. Integumentary: No rashes or sores. Neurological: No dizziness, no headaches. Psychiatric: No mood changes. Endocrine: No hot flashes, no cold intolerance, weight is stable. Hematologic: No easy bruising or bleeding. Active Problems Lung nodule (793.11) (R91.1) Pre-op testing (V72.84) (Z01.818) Allergies No Known Drug Allergies Recorded By: Jennifer Sykes; 08/24/2022 11:27:15 AM Physical Exam Patient's visit was converted to a telephone visit given current COVID- 19 pandemic. . Time Time Stamp_: Prep time on date of the patient encounter: 10 minutes. Time spent directly with patient/family/careg (more content not included)... Normal [facility] PET CT SKULL BASE MID THIGHo n 07-31-[address] SKULL BASE MID THIGH NUCLEAR MEDICINE PET/CT HISTORY: Solitary pulmonary nodule. COMPARISON: CT chest 06/21/2022. METHOD: 13.77 mCi of F-18 FDG was administered intravenously. Blood sugar level at the time of the injection: 101. At 50 minutes from injection, PET images were obtained from the skull base through the midthigh levels in the axial plane. Reformatted images were performed in the sagittal and coronal planes. A low-dose, noncontrast CT scan was performed for attenuation correction and anatomical localization. A low dose, noncontrast and nondiagnostic CT scan was performed for attenuation correction and anatomic localization. Mediastinal blood pool SUV max 1.6 using the patient's body weight as the normalization method. FINDINGS: HEAD AND NECK: There are no metabolically active lymph nodes in the neck. There is nonspecific focal metabolic uptake in the right parasymphysis mandible a maximum SUV of 7.0. CHEST: There is a metabolically active right axillary 1.4 x 0.7 cm lymph node with a maximum SUV of 3.6. The major airways are patent. There is no pericardial effusion. There is no evidence of abnormal metabolic uptake in the esophagus. There are emphysematous changes. There are multiple bilateral upper lobe pulmonary nodules, the largest is in the left upper lobe measuring 1.8 x 0.9 cm with a maximum SUV of 4.7. The largest nodule in the right upper lobe measures 1.3 x 0.7 cm and is not metabolically active. There is a metabolically active right upper lobe 4 mm pulmonary nodules a maximum SUV of 2.2. There are no pleural effusions. There is no pneumothorax. ABDOMEN AND PELVIS: There is no evidence of abnormal metabolic activity in the liver or adrenal glands. There is no evidence of abnormal metabolic active lymph nodes in the abdomen or pelvis. There is no free fluid. There is physiologic uptake in the urinary system and bowel. MUSCULOSKELETAL: There is no evidence of abnormal metabolically active bony lesions. IMPRESSION: Metabolically active and nonmetabolically active bilateral upper lobe pulmonary nodules, the largest is in the left upper lobe measuring 1.8 x 0.9 cm. Although these nodules could be related to granulomatous disease, a primary lung carcinoma or metastatic disease can't be excluded. Recommend tissue sampling of this left upper lobe pulmonary nodule. Nonspecific mildly metabolically active right axillary lymph node measuring 1.4 x 0.7 cm. Differential diagnosis includes reactive lymph node, metastatic disease and lymphoma. Recommend ultrasound right axilla, if this lymph node has suspicious features, recommend tissue sampling. Emphysema. Nonspecific focal metabolic uptake in the right parasymphysis mandible which may be related to an inflammatory or infectious process related to a tooth. Recommend correlation with dental exam. Electronically authenticated by: NAIF TITUS Date: 2022-07-31 08:54 Normal [facility] FUNGAL CULTUREon 07-13-2022 Fungus Stain Final report Normal [facility] Comment on above: Performed By: #### C XFUN #### [facility] [address] [place] [address] [address] Hamida Mendez Performed By: #### H ISTDID #### [facility] [address] [place] [address] [address] Hamida Mendez Result 1 Comment Normal [facility] Comment on above: Result Comment: CHIQUITA/ Calcofluor preparation: no fungus observed. Performed By: #### C XFUN #### [facility] [address] [place] [address] Dr. Hamida Mendez Performed By: #### H ISTDID #### [facility] [address] [place] [address] Dr. Hamida Mendez ACID FAST SMEAR AND CXon Acid Fast Smear Negative Normal [facility] Comment on above: Performed By: #### C VDTBH #### [facility] [address] [place] [address] Dr. Hamida Mendez AFB Specimen Processing Concentration Normal [facility] Comment on above: Performed By: #### C VDTBH #### [facility] [address] [place] [address] Dr. Hamida Mendez CULTURE OTHERon 07-10-2022 CULTURE OTHER Culture Observations: NO GROWTH AT 48 HOURS. Normal [facility] Comment on above: Performed By: #### C VDTBH #### [facility] [address] [place] [address] Dr. Hamida Mendez CYTOLOGYon 07-10-2022 SENT TO REF LAB 07/10/2022 [facility] Comment on above: Performed By: #### C VDTBH #### [facility] [address] [place] [address] Dr. Hamida Mendez GRAM STAINon 07-10-2022 COMMENTS NO ORGANISMS OBSERVED [facility] Comment on above: Performed By: #### C CPAB #### [facility] [address] [place] [address] Dr. Hamida Mendez DIPHTHEROIDS Normal [facility] Comment on above: Performed By: #### C CPAB #### [facility] [address] [place] [address] Dr. Hamida Mendez EPITHELIALS Normal [facility] Comment on above: Performed By: #### C CPAB #### [facility] [address] [place] [address] Dr. Hamida Mendez FUNGAL ELEMENTS [facility] Comment on above: Performed By: #### C CPAB #### [facility] [address] [place] [address] Dr. Hamida Mendez GRAM NEG BACILLI Normal [facility] Comment on above: Performed By: #### C CPAB #### [facility] [address] [address] [address] Hamida Mendez GRAM NEG DIPPLOCOCCI Normal [facility] Comment on above: Performed By: #### C CPAB #### [facility] [address] [address] [address] Hamida Mendez GRAM POS BACILLI Normal [facility] Comment on above: Performed By: #### C CPAB #### [facility] [address] [address] [address] Hamida Mendez GRAM POSITIVE COCCI Normal [facility] Comment on above: Performed By: #### C CPAB #### [facility] [address] [place] [address] Dr. Hamida Mendez GRAM STAIN SOURCE Lt Upper Lobe Lavage Normal [facility] Comment on above: Performed By: #### C CPAB #### [facility] [address] [address] [address] Hamida Mendez GS_DIPTH Normal [facility] Comment on above: Performed By: #### C CPAB #### [facility] [address] [address] [address] Hamida Mendez WBC NONE SEEN Normal [facility] Comment on above: Performed By: #### C CPAB #### [facility] [address] [place] [address] Dr. Hamida Mendez XR CHEST 1 Von 07-10-2022 XR CHEST 1 V EXAMINATION: XR CHEST 1 V, 07/10/2022 8:07 AM EDT HISTORY: SHORTNESS OF BREATH COMPARISON: CT 06/21/2022 TECHNIQUE: AP portable view of the chest performed. FINDINGS: Medical devices: None. Cardiomediastinal silhouette is within normal limits. Emphysematous change. Left upper lung opacity relates to patient's known pulmonary nodule; lungs are otherwise clear with known additional nodules not well seen on this exam. No large pleural effusion, or pneumothorax. IMPRESSION: 1. No acute cardiopulmonary abnormality. Left upper lung opacity relates to patient's known pulmonary nodule. Electronically authenticated by: TEGAN PAREDES Date: 2022-07-10 08:41 Normal [facility] Covid-19 PCR (CVDTB)on 06-18 SARS-CoV-2 (COVID-19) RNA DORA+probe Ql (Unsp spec) Not detected Normal NOT DETECTED [facility] Comment on above: Result Comment: This test is not yet approved or cleared by the [place] FDA. When there are no FDA-approved or cleared tests available, and other criteria are met, FDA can make tests available under an emergency access mechanism called an Emergency Use Authorization (EUA). The EUA for this test is supported by the [place] of Health and Human Service's (HHS's) declaration that circumstances exist to justify the emergency use of in vitro diagnostics for the detection and/or diagnosis of the virus that causes COVID-19. This EUA will remain in effect (meaning this test can be used) for the duration of the COVID-19 declaration justifying emergency of IVDs, unless it is terminated or revoked by FDA (after which the test may no longer be used). When diagnostic testing is negative, the possibility of a false negative should be considered in the context of a patient's recent exposures and the presence of clinical signs and symptoms consistent with SARS-CoV-2. Performed By: #### C VDTBH #### [facility] [address] [place] [address] Dr. Hamida Mendez COCCIDIODES IGG/IGM AB BY IF Aon 06-29-2022 Coccidiodes Ab, IgG EIA 0.6 EIA Units Normal [facility] Comment on above: Result Comment: Nega tive <1.0 Indeterminate 1.0-1.4 Positive >1.4 Performed By: #### C VDTBH #### [facility] [address] [place] [address] Dr. Hamida Mendez Coccidiodes Ab, IgM, EIA 0.2 EIA Units Normal [facility] Comment on above: Result Comment: Nega tive <1.0 Indeterminate 1.0-1.4 Positive >1.4 Performed By: #### C VDTBH #### [facility] [address] [place] [address] Dr. Hamida Mendez HISTOPLASMA GALACTOMANNAN AG URINEon 06-27-2022 Histoplasma Gal'jp Ag <0.5 Normal <0.5 ng/mL [facility] Comment on above: Performed By: #### C CPAB #### [facility] [address] [place] [address] Dr. Hamida Mendez FUNGAL AB QUANTITAIVE DOUBLE IMMUNODIFFUon 06-25-2022 Aspergillus flavus Negative Normal Neg:<1:1 [facility] Comment on above: Performed By: #### C CPAB #### [facility] [address] [place] [address] Dr. Hamida Mendez Aspergillus fumigatus Negative Normal Neg:<1:1 [facility] Comment on above: Performed By: #### C CPAB #### [facility] [address] [place] [address] Dr. Hamida Mendez Aspergillus niger Negative Normal Neg:<1:1 [facility] Comment on above: Performed By: #### C CPAB #### [facility] [address] [place] [address] Dr. Hamida Mendez Blastomyces Negative Normal Neg:<1:1 [facility] Comment on above: Performed By: #### C CPAB #### [facility] [address] [place] [address] Dr. Hamida Mendez HISTOPLASMA CAP AB QUANT DID on 06-24-2022 Histoplasma Mycelial CF Ab. Negative Normal Neg:<1:2 [facility] Comment on above: Performed By: #### H ISTDID #### [facility] [address] [place] [address] Dr. Hamida Mendez Histoplasma Yeast CF Ab Negative Normal Neg:<1:2 [facility] Comment on above: Performed By: #### H ISTDID #### [facility] [address] [place] [address] Dr. Hamida Mendez QUANTIFERON TB GOLD PLUSon 0 06-24-2022 QuantiFERON Criteria Comment Normal [facility] Comment on above: Result Comment: Oren tiFERON-TB Gold Plus is a qualitative indirect test for M tuberculosis infection (including disease) and is intended for use in conjunction with risk assessment, radiography, and other medical and diagnostic evaluations. The QuantiFERON-TB Gold Plus result is determined by subtracting the Nil value from either TB antigen (Ag) value. The Mitogen tube serves as a control for the test. Performed By: #### Q NTTB #### [facility] [address] [place] [address] Dr. Hamida Mendez QuantiFERON Incubation Incubation performed. Normal [facility] Comment on above: Performed By: #### Q NTTB #### [facility] [address] [place] [address] Dr. Hamida Mendez QuantiFERON Mitogen Value >10.00 Normal [facility] Comment on above: Performed By: #### Q NTTB #### [facility] [address] [place] [address] Dr. Hamida Mendez QuantiFERON Nil Value 0.03 IU/mL Normal [facility] Comment on above: Performed By: #### Q NTTB #### [facility] [address] [place] [address] Dr. Hamida Mendez QuantiFERON TB1 Ag Value 0.05 IU/mL Normal [facility] Comment on above: Performed By: #### Q NTTB #### [facility] [address] [place] [address] Dr. Hamida Mendez QuantiFERON TB2 Ag Value 0.04 IU/mL Normal [facility] Comment on above: Performed By: #### Q NTTB #### [facility] [address] [place] [address] Dr. Hamida Mendez QuantiFERON-TB Gold Plus Negative Normal Negative [facility] Comment on above: Result Comment: No r esponse to M tuberculosis antigens detected. Infection with M tuberculosis is unlikely, but high risk individuals should be considered for additional testing (ATS/IDSA/CDC Clinical Practice Guidelines, 2017). The reference range is an Antigen minus Nil result of <0.35 IU/mL. Chemiluminescence immunoassay methodology Performed By: #### Q NTTB #### [facility] [address] [place] [address] Dr. Hamida Mendez ANGIOTENSION-CONVERTING ENZY ME (ANTOINETTE)on 06-23-2022 ANTOINETTE 45 U/L Normal 14-82 [facility] Comment on above: Performed By: #### C CPAB #### [facility] [address] [address] [address] Hamida Mendez ANTI NEUTROPHIL CYTOPLASMIC AB (ANCA) PRon 06-23-2022 Anti-MPO Antibodies <0.2 Normal 0.0-0.9 [facility] Comment on above: Result Comment: Perf ormed at: BN Performed By: #### A NCAP #### [facility] [address] [place] [address] Dr. Hamida Mendez Anti-PR3 Antibodies <0.2 Normal 0.0-0.9 [facility] Comment on above: Result Comment: Perf ormed at: BN Performed By: #### A NCAP #### [facility] [address] [place] [address] Dr. Hamida Mendez Atypical pANCA <1:20 Normal Neg:<1:20 [facility] Comment on above: Result Comment: The atypical pANCA pattern has been observed in a significant percentage of patients with ulcerative colitis, primary sclerosing cholangitis and autoimmune hepatitis. Performed at: CB Performed By: #### A NCAP #### [facility] [address] [place] [address] Dr. Hamida Mendez Cytoplasmic (C-ANCA) <1:20 Normal Neg:<1:20 [facility] Comment on above: Result Comment: Perf ormed at: CB Performed By: #### A NCAP #### [facility] [address] [place] [address] Dr. Hamida Mendez Perinuclear (P-ANCA) <1:20 Normal Neg:<1:20 [facility] Comment on above: Result Comment: The presence of positive fluorescence exhibiting P-ANCA or C-ANCA patterns alone is not specific for the diagnosis of John's Granulomatosis (WG) or microscopic polyangiitis. Decisions about treatment should not be based solely on ANCA IFA results. The International ANCA Group Consensus recommends follow up testing of positive sera with both OH-3 and MPO-ANCA enzyme immunoassays. As many as 5% serum samples are positive only by EIA. Ref. AM J Clin Pathol 1999;111:507-513. Performed at: CB Performed By: #### A NCAP #### [facility] [address] [place] [address] Dr. Hamida Mendez ANTISCLERODERMA ABon 023 Antiscleroderma-70 Antibodies <0.2 Normal 0.0-0.9 [facility] Comment on above: Performed By: #### C CPAB #### [facility] [address] [place] [address] Dr. Hamida Mendez CYCLIC CITRULLINATED PEPTIDE AB (CCP)on 06-23-2022 CCP Antibodies IgG/IgA 5 units Normal 0-19 [facility] Comment on above: Result Comment: Nega tive <20 Weak positive 20 - 39 Moderate positive 40 - 59 Strong positive >59 Performed By: #### C CPAB #### [facility] [address] [place] [address] Dr. Hamida Mendez RHEUMATOID FACTORon 06-24-19 23 RA Latex Turbid. <10.0 Normal <14.0 [facility] Comment on above: Performed By: #### C CPAB #### [facility] [address] [place] [address] Dr. Hamida Mendez [facility] SED [facility] 47 mm/hr Critically high <=20 [facility] Comment on above: Performed By: #### C VDTBH #### [facility] [address] [place] [address] LUNG CANCER SCREENINGon 0 06-21-2022 CT LUNG CANCER SCREENING EXAMINATION: CT LUNG CANCER SCREENING HISTORY: Nicotine dependence COMPARISON: No relevant comparison available. TECHNIQUE: Axial, Coronal, and Sagittal images were created without the administration of IV contrast material. Dose reduction techniques were achieved by using automated exposure control and/or adjustment of mA and/or kV according to patient size and/or use of iterative reconstruction technique. FINDINGS: LUNGS: Posterior right upper lobe 1.0 cm spiculated nodule, with a few additional tiny nodules scattered within the right lung. Left upper lobe geographic shaped spiculated mass 5.4 x 2.5 x 1.4 cm. 2 adjacent 0.8 cm nodules within right upper lobe just below level of hilum. A few additional tiny nodules scattered within the lungs. Multiple small irregular cavitary lesions scattered within the lungs bilaterally. Moderate emphysematous changes within lung apices. Mild bronchiectasis. PLEURA: No mass, effusion, or pneumothorax. VASCULATURE: No abnormality. WILMAR: No mass or pathologic adenopathy. MEDIASTINUM: No mass or pathologic adenopathy. CARDIAC: No enlargement, pericardial thickening, or significant calcification. AORTA: No aneurysm or dissection. CHEST WALL: No mass or axillary adenopathy BONES: No bone lesion or fracture. LIMITED ABDOMEN: No suspicious findings. Limited images of the upper abdomen. OTHER: Negative. IMPRESSION: 1. Lung-RADS Category 4B- Suspicious. Findings for which additional diagnostic testing and/ or tissue sampling is recommended. Chest CT with or without contrast, PET/CT and/ or tissue sampling depending on the * probability of malignancy and comorbidities. PET/CT may be used when there is a >= 8 mm solid component. 2. Suspicious lung findings bilaterally, with largest mass/nodule within left lung apex. PET/CT is recommended for further evaluation. Electronically authenticated by: DOT JOSEPH Date: 2022-06-21 15:09 Normal [facility] HEMOGLOBINon 06-12-2022 Hemoglobin (Bld) [Mass/Vol] 14.4 g/dL Normal 14.0-18.0 [facility] Comment on above: Performed By: #### C VDTBH #### [facility] [address] [place] [address] Dr. Hamida Mendez CBC AUTO DIFFon 01-24-2022 BASO # 0.0 103/ul Normal 0.0-0.1 [facility] Comment on above: Performed By: #### H ISTDID #### [facility] [address] [address] [address] Hamida Mendez Basophils/100 WBC (Bld) 0.0 % Critically low 0.2-2.0 [facility] Comment on above: Performed By: #### H ISTDID #### [facility] [address] [place] [address] Dr. Hamida Mendez EO # 0.4 103/ul Normal 0.0-0.7 [facility] Comment on above: Performed By: #### H ISTDID #### [facility] [address] [place] [address] Dr. Hamida Mendez Eosinophils/100 WBC (Bld) 7.2 % Critically high 0.9-7.0 [facility] Comment on above: Performed By: #### H ISTDID #### [facility] [address] [place] [address] Dr. Hamida Mendez Erythrocyte distribution width (RBC) [Ratio] 13.1 % Normal 11.0-15.0 [facility] Comment on above: Performed By: #### H ISTDID #### [facility] [address] [place] [address] Dr. Hamida Mendez Hematocrit (Bld) [Volume fraction] 46.9 % Normal 42.0-54.0 [facility] Comment on above: Performed By: #### H ISTDID #### [facility] [address] [place] [address] Dr. Hamida Mendez Hemoglobin (Bld) [Mass/Vol] 15.4 g/dL Normal 14.0-18.0 [facility] Comment on above: Performed By: #### H ISTDID #### [facility] [address] [place] [address] Dr. Hamida Mendez IG # 0.01 10e3/ul Normal 0.00-0.03 [facility] Comment on above: Performed By: #### H ISTDID #### [facility] [address] [place] [address] Dr. Hamida Mendez IG % 0.2 % Normal 0.0-0.5 [facility] Comment on above: Performed By: #### H ISTDID #### [facility] [address] [place] [address] Dr. Hamida Mendez LYMPH # 1.5 103/ul Normal 1.2-3.8 [facility] Comment on above: Performed By: #### H ISTDID #### [facility] [address] [place] [address] Dr. Hamida Mendez Lymphocytes/100 WBC (Bld) 27.5 % Normal 20.5-60.0 [facility] Comment on above: Performed By: #### H ISTDID #### [facility] [address] [place] [address] Dr. Hamida Mendez MANUAL DIFF REQ NO Normal [facility] Comment on above: Performed By: #### H ISTDID #### [facility] [address] [place] [address] Dr. Hamida Mendez MCH (RBC) [Entitic mass] 30.9 pg Normal 25.9-34.0 [facility] Comment on above: Performed By: #### H ISTDID #### [facility] [address] [place] [address] Dr. Hamida Mendez MCHC (RBC) [Mass/Vol] 32.8 g/dL Normal 29.9-35.2 [facility] Comment on above: Performed By: #### H ISTDID #### [facility] [address] [place] [address] Dr. Hamida Mendez MCV (RBC) [Entitic vol] 94.2 fL Critically high 80.0-94 .0 [facility] Comment on above: Performed By: #### H ISTDID #### [facility] [address] [place] [address] Dr. Hamida Mendez MONO # 0.4 103/ul Normal 0.3-0.8 [facility] Comment on above: Performed By: #### H ISTDID #### [facility] [address] [place] [address] Dr. Hamida Mendez Monocytes/100 WBC (Bld) 7.2 % Normal 1.7-12.0 [facility] Comment on above: Performed By: #### H ISTDID #### [facility] [address] [place] [address] Dr. Hamida Mendez NEUT # 3.2 103/ul Normal 1.4-6.5 [facility] Comment on above: Performed By: #### H ISTDID #### [facility] [address] [place] [address] Dr. Hamida Mendez Neutrophils/100 WBC (Bld) 57.9 % Normal 43.0-75.0 [facility] Comment on above: Performed By: #### H ISTDID #### [facility] [address] [address] [address] Hamida Mendez Platelet mean volume (Bld) [Entitic vol] 8.8 fL Critically low 9.5-13.5 [facility] Comment on above: Performed By: #### H ISTDID #### [facility] [address] [address] [address] Hamida Mendez PLT 261 103/ul Normal 150-450 [facility] Comment on above: Performed By: #### H ISTDID #### [facility] [address] [place] [address] Dr. Hamida Mendez RBC 4.98 106/ul Normal 4.70-6.10 [facility] Comment on above: Performed By: #### H ISTTEGAND #### [facility] [address] [address] [address] Hamida Mendez WBC 5.6 103/ul Normal 4.0-11.0 [facility] Comment on above: Performed By: #### H ISTDID #### [facility] [address] [place] [address] Dr. Hamida Mendez FREE T3on 01-24-2022 FREE T3 2.19 pg/mlL Normal 2.18-3.98 [facility] Comment on above: Performed By: #### C VDTBH #### [facility] [address] [place] [address] Dr. Hamida Mendez FREE T4on 01-24-2022 Free T4 [Mass/Vol] 1.13 ng/dL Normal 0.76-1.46 [facility] Comment on above: Performed By: #### C CPAB #### [facility] [address] [place] [address] Dr. Hamida Mendez GLYCOHEMOGLOBIN A1Con 2021 ADA RECOMMENDATION SEE BELOW Normal [facility] Comment on above: Result Comment: ADA RECOMMENDED LIMIT 4.0 - 6.0 ADA THERAPEUTIC TARGET < 7.0 ACTION SUGGESTED > 7.0 Performed By: #### C CPAB #### [facility] [address] [address] [address] Hamida Mendez Glucose [Mass/Vol] 105 mg/dL Normal [facility] Comment on above: Performed By: #### C CPAB #### [facility] [address] [address] [address] Hamida Mendez HbA1c (Bld) [Mass fraction] 5.3 % Normal 4.5-6.2 [facility] Comment on above: Performed By: #### C CPAB #### [facility] [address] [address] [address] Hamida Mendez LIPID PROFILEon 01-24-2022 CHOL-HDL RATIO NORM SEE BELOW Normal [facility] Comment on above: Result Comment: 3.3 - 4.4 LOW RISK 4.4 - 7.1 AVERAGE RISK 7.1 - 11.0 MODERATE RISK >11.0 HIGH RISK Performed By: #### B MP, TSH, LIVER, LIPID, FT3 #### [facility] [address] [address] [address] Hamida Mendez Cholesterol [Mass/Vol] 211 mg/dL Critically high <=200 [facility] Comment on above: Performed By: #### B MP, TSH, LIVER, LIPID, FT3 #### [facility] [address] [address] [address] Hamida Mendez Cholesterol in HDL [Mass/Vol] 69 mg/dL Critically high 40-60 [facility] Comment on above: Performed By: #### B MP, TSH, LIVER, LIPID, FT3 #### [facility] [address] [address] [address] Hamida Mendez Cholesterol in LDL [Mass/Vol] 126.2 mg/dL Normal [facility] Comment on above: Performed By: #### B MP, TSH, LIVER, LIPID, FT3 #### [facility] [address] [address] [address] Hamida Mendez Cholesterol.total/Christy sterol in HDL [Mass ratio] 3.1 {ratio} Normal [facility] Comment on above: Performed By: #### B MP, TSH, LIVER, LIPID, FT3 #### [facility] [address] [address] [address] Hamida Mendez HDL NORMAL > or = 60 mg/dl - LOW CARDIOVASCULAR RISK <40 mg/dl - HIGH CARDIOVASCULAR RISK Normal [facility] Comment on above: Performed By: #### B MP, TSH, LIVER, LIPID, FT3 #### [facility] [address] [address] [address] Hamida Mendez LDL CALC NORMAL SEE BELOW Normal [facility] Comment on above: Result Comment: <100 mg/dl OPTIMAL 100 - 129 mg/dl NEAR OR ABOVE OPTIMAL 130 - 159 mg/dl BORDERLINE HIGH 160 - 189 mg/dl HIGH >190 mg/dl VERY HIGH Performed By: #### B MP, TSH, LIVER, LIPID, FT3 #### [facility] [address] [place] [address] Dr. Hamida Mendez Triglyceride [Mass/Vol] 79 mg/dL Normal <=150 T [facility] Comment on above: Performed By: #### B MP, TSH, LIVER, LIPID, FT3 #### [facility] [address] [address] [address] Hamida Mendez VLDL CALC 15.8 mg/dL Normal [facility] Comment on above: Performed By: #### B MP, TSH, LIVER, LIPID, FT3 #### [facility] [address] [address] [address] Hamida Mendez LIVER PROFILEon 01-24-2022 Albumin [Mass/Vol] 3.4 g/dL Normal 3.4-5.0 [facility] Comment on above: Performed By: #### B MP, TSH, LIVER, LIPID, FT3 #### [facility] [address] [place] [address] Dr. Hamida Mendez Albumin/Globulin [Mass ratio] 0.8 {ratio} Normal [facility] Comment on above: Performed By: #### B MP, TSH, LIVER, LIPID, FT3 #### [facility] [address] [place] [address] Dr. Hamida Mendez ALP [Catalytic activity/Vol] 83 U/L Normal 46-116 [facility] Comment on above: Performed By: #### B MP, TSH, LIVER, LIPID, FT3 #### [facility] [address] [address] [address] Hamida Mendez ALT [Catalytic activity/Vol] 14 U/L Critically low 16-63 [facility] Comment on above: Performed By: #### B MP, TSH, LIVER, LIPID, FT3 #### [facility] [address] [address] [address] Hamida Mendez AST [Catalytic activity/Vol] 12 U/L Critically low 15-37 [facility] Comment on above: Performed By: #### B MP, TSH, LIVER, LIPID, FT3 #### [facility] [address] [place] [address] Dr. Hamida Mendez BILI, CONJUGATED 0.1 mg/dL Normal 0.0-0.2 [facility] Comment on above: Performed By: #### B MP, TSH, LIVER, LIPID, FT3 #### [facility] [address] [place] [address] Dr. Hamida Mendez Bilirubin [Mass/Vol] 0.4 mg/dL Normal 0.2-1.0 [facility] Comment on above: Performed By: #### B MP, TSH, LIVER, LIPID, FT3 #### [facility] [address] [place] [address] Dr. Hamida Mendez Globulin (S) [Mass/Vol] 4.2 g/dL Normal T [facility] Comment on above: Performed By: #### B MP, TSH, LIVER, LIPID, FT3 #### [facility] [address] [place] [address] Dr. Hamida Mendez Protein [Mass/Vol] 7.6 g/dL Normal 6.4-8.2 [facility] Comment on above: Performed By: #### B MP, TSH, LIVER, LIPID, FT3 #### [facility] [address] [place] [address] Dr. Hamida Mendez PROF CHEM 8 (BAS METB)on Anion gap [Moles/Vol] 4.7 mmol/L Normal [facility] Comment on above: Performed By: #### B MP, TSH, LIVER, LIPID, FT3 #### [facility] [address] [address] [address] Hamida Mendez Calcium [Mass/Vol] 9.1 mg/dL Normal 8.5-10.1 [facility] Comment on above: Performed By: #### B MP, TSH, LIVER, LIPID, FT3 #### [facility] [address] [address] [address] Hamida Mendez Chloride [Moles/Vol] 101 mmol/L Normal 98-107 [facility] Comment on above: Performed By: #### B MP, TSH, LIVER, LIPID, FT3 #### [facility] [address] [address] [address] Hamida Mendez CO2 [Moles/Vol] 33.4 mmol/L Critically high 21.0-32.0 [facility] Comment on above: Performed By: #### B MP, TSH, LIVER, LIPID, FT3 #### [facility] [address] [address] [address] Hamida Mendez Creatinine [Mass/Vol] 0.87 mg/dL Normal 0.70-1.30 [facility] Comment on above: Performed By: #### B MP, TSH, LIVER, LIPID, FT3 #### [facility] [address] [address] [address] Hamida Mendez EGFR-AF BOLIVIAN >60 Normal >=60 [facility] Comment on above: Performed By: #### B MP, TSH, LIVER, LIPID, FT3 #### [facility] [address] [address] [address] Hamida Mendez EGFR-NON AF BOLIVIAN >60 Normal >=60 [facility] Comment on above: Performed By: #### B MP, TSH, LIVER, LIPID, FT3 #### [facility] [address] [address] [address] Hamida Mendez Glucose [Mass/Vol] 101 mg/dL Normal 74-106 [facility] Comment on above: Performed By: #### B MP, TSH, LIVER, LIPID, FT3 #### [facility] [address] [address] [address] Hamida Mendez Potassium [Moles/Vol] 4.1 mmol/L Normal 3.5-5.1 [facility] Comment on above: Performed By: #### B MP, TSH, LIVER, LIPID, FT3 #### [facility] [address] [place] [address] Dr. Hamida Mendez Sodium [Moles/Vol] 135 mmol/L Critically low 136-145 Th [facility] Comment on above: Performed By: #### B MP, TSH, LIVER, LIPID, FT3 #### [facility] [address] [place] [address] Dr. Hamida Mendez Urea nitrogen [Mass/Vol] 9.0 mg/dL Normal 7.0-18.0 [facility] Comment on above: Performed By: #### B MP, TSH, LIVER, LIPID, FT3 #### [facility] [address] [place] [address] Dr. Hamida Mendez Urea nitrogen/Creatinine [Mass ratio] 10.3 mg/mg Normal [facility] Comment on above: Performed By: #### B MP, TSH, LIVER, LIPID, FT3 #### [facility] [address] [place] [address] Dr. Hamida Mendez TSHon 01-24-2022 TSH 0.960 uIU/mL Normal 0.358-3.740 [facility] Comment on above: Performed By: #### B MP, TSH, LIVER, LIPID, FT3 #### [facility] [address] [place] [address] Dr. Hamida Mendez VITAMIN D 25 OHon 01-24-2022 VIT D 25-OH 25.6 ng/mL Normal [facility] Comment on above: Performed By: #### C CPAB #### [facility] [address] [place] [address] Dr. Hamida Mendez VIT D RANGES SEE BELOW Normal [facility] Comment on above: Result Comment: <20 ng/mL Vit D deficient 20 - <30 ng/mL Vit D insufficient 30 - 100 ng/mL Vit D sufficient >100 ng/mL Potential Toxicity Performed By: #### C CPAB #### [facility] [address] [address] [address] Hamida Mendez Physician Referralon 022 Physician Referral [phone] [id number] Normal [facility] A1C with Estimated Average G rocky 03-23-2021 Glucose [Mass/Vol] 111 mg/dL Normal [facility] Comment on above: Order Comment: Reaso n for Exam Hypothyroidism, unspecified type Reason for Exam Hyperlipidemia, unspecified Result Comment: PERF ORMED BY: [place] [address] PATHOLOGIST ROLL FINISHER CHANDRAKANT ZARCO M.D. Performed By: #### C MP, LIPID, THYROID SC, SCAN CBC #### [facility] [address] HbA1c (Bld) [Mass fraction] 5.5 % Normal 4.3-5.6 [facility] Comment on above: Order Comment: Reaso n for Exam Hypothyroidism, unspecified type Reason for Exam Hyperlipidemia, unspecified Result Comment: Incr eased risk for diabetes: 5.7 - 6.4 diabetes: >6.4 glycemic control for adults with diabetes: <7.0 Performed By: #### C MP, LIPID, THYROID SC, SCAN CBC #### [facility] [address] COVID-19 Antigenon 1 COVID-19 Antigen Healthcare Worker?: N Baudilio Reference Baudilio Reference Negative SARS-CoV+SARS-CoV-2 (COVID-19) Ag [Presence] in Respiratory specimen by Rapid immunoassay Negative for SARS Antigen by LYDIA COVID19 Blank Space Baudilio Disclaimer Negative results, from patients with symptom Baudilio Disclaimer onset beyond five days, should be treated as Baudilio Disclaimer presumptive and confirmation with a molecular Baudilio Disclaimer assay, if necessary, for patient management, Baudilio Disclaimer may be performed. Negative results do not rule Baudilio Disclaimer out COVID-19 and should not be used as the sole Baudilio Disclaimer basis for treatment or patient management Baudilio Disclaimer decisions, including infection control decisions. Baudilio Disclaimer Negative results should be considered in the Baudilio Disclaimer context of a patient's recent exposures, history Baudilio Disclaimer and the presence of clinical signs and symptoms Baudilio Disclaimer consistent with COVID-19. COVID19 Blank Space Baudilio Disclaimer The Baudilio SARS Antigen LYDIA does not differentiate Baudilio Disclaimer between SARS-CoV and SARS-CoV-2. COVID19 Blank Space Baudilio Disclaimer This test was developed and its performance Baudilio Disclaimer characteristic determined by [employer] and Baudilio Disclaimer validated at [facility]. This Baudilio Disclaimer test has not been FDA cleared or approved. This Baudilio Disclaimer test has been authorized by FDA under an Emergency Use Baudilio Disclaimer Authorization (EUA). This test has been validated Baudilio Disclaimer in accordance with the FDA's Guidance Document (Policy Baudilio Disclaimer for Diagnostics Testing in Laboratories Certified to Baudilio Disclaimer Perform High Complexity Testing under CLIA prior to Baudilio Disclaimer Emergency Use Authorization for Coronavirus Baudilio Disclaimer iseas during the Public Health Emergency) Baudilio Disclaimer issued on June 19, 2019. This test is only authorized Baudilio Disclaimer for the duration of time the declaration that Baudilio Disclaimer circumstances exist justifying the authorization of Baudilio Disclaimer the emergency use of in vitro diagnostic tests for Baudilio Disclaimer detection of SARS-CoV-2 virus and/or diagnosis of Baudilio Disclaimer COVID-19 infection under section 564(b)(1) of the Baudilio Disclaimer Act, 21 U.S.C. 360bbb-3(b)(1), unless the Baudilio Disclaimer authorization is terminated or revoked sooner. PERFORMED BY: [place] [phone] PATHOLOGIST ROLL FINISHER CHANDRAKANT ZARCO M.D. Normal [facility] Comment on above: Performed By: #### C OVID-19 BAUDILIO, SOFIANEG #### [facility] [address] [place] [address] Baudilio Ag Negativeon 12-14-19 21 Baudilio Ag Negative Negative Normal Negative [facility] Comment on above: Result Comment: This is a duplicate Baudilio SARS Antigen (LYDIA) result to be used for statistical tracking purpose only. PERFORMED BY: [place] [phone] PATHOLOGIST ROLL FINISHER CHANDRAKANT ZARCO M.D. Performed By: #### C OVID-19 BAUDILIO, SOFIANEG #### [address] Complete Blood Count Auto Di ffon 12-07-2020 Basophils (Bld) [#/Vol] 0.0 10*3/uL Normal 0.0-0.2 [facility] Comment on above: Order Comment: Reaso n for Exam Tobacco use;Dyslipidemia;Encounter for screening for maligna Result Comment: PERF ORMED BY: [place] [phone] PATHOLOGIST ROLL FINISHER CHANDRAKANT ZARCO M.D. Performed By: #### L IPID, TSH3 wRFLX, CMP, CBC #### [facility] [address] [place] [address] Basophils/100 WBC (Bld) 0.5 % Normal . [facility] Comment on above: Order Comment: Reaso n for Exam Tobacco use;Dyslipidemia;Encounter for screening for maligna Performed By: #### L IPID, TSH3 wRFLX, CMP, CBC #### [facility] [address] [place] [address] Eosinophils (Bld) [#/Vol] 0.4 10*3/uL Normal 0.0-0.45 [facility] Comment on above: Order Comment: Reaso n for Exam Tobacco use;Dyslipidemia;Encounter for screening for maligna Performed By: #### L IPID, TSH3 wRFLX, CMP, CBC #### [address] Eosinophils/100 WBC (Bld) 5.0 % Normal . [facility] Comment on above: Order Comment: Reaso n for Exam Tobacco use;Dyslipidemia;Encounter for screening for maligna Performed By: #### L IPID, TSH3 wRFLX, CMP, CBC #### [facility] [address] [place] [address] Erythrocyte distribution width (RBC) [Ratio] 13.7 % Normal 12.0-14.8 [facility] Comment on above: Order Comment: Reaso n for Exam Tobacco use;Dyslipidemia;Encounter for screening for maligna Performed By: #### L IPID, TSH3 wRFLX, CMP, CBC #### [address] Hematocrit (Bld) [Volume fraction] 43.7 % Normal 38.8-50.0 [facility] Comment on above: Order Comment: Reaso n for Exam Tobacco use;Dyslipidemia;Encounter for screening for maligna Performed By: #### L IPID, TSH3 wRFLX, CMP, CBC #### [facility] [address] [place] [address] Hemoglobin (Bld) [Mass/Vol] 15.0 g/dL Normal 13.0-17.0 [facility] Comment on above: Order Comment: Reaso n for Exam Tobacco use;Dyslipidemia;Encounter for screening for maligna Performed By: #### L IPID, TSH3 wRFLX, CMP, CBC #### [facility] [address] [place] [address] [place] Lymphocytes (Bld) [#/Vol] 2.0 10*3/uL Normal 1.00-4.8 [facility] Comment on above: Order Comment: Reaso n for Exam Tobacco use;Dyslipidemia;Encounter for screening for maligna Performed By: #### L IPID, TSH3 wRFLX, CMP, CBC #### [address] Lymphocytes/100 WBC (Bld) 27.1 % Normal . [facility] Comment on above: Order Comment: Reaso n for Exam Tobacco use;Dyslipidemia;Encounter for screening for maligna Performed By: #### L IPID, TSH3 wRFLX, CMP, CBC #### [address] MCH (RBC) [Entitic mass] 32.5 pg Normal 27.5-35.2 [facility] Comment on above: Order Comment: Reaso n for Exam Tobacco use;Dyslipidemia;Encounter for screening for maligna Performed By: #### L IPID, TSH3 wRFLX, CMP, CBC #### [address] MCV (RBC) [Entitic vol] 94.7 fL Normal 83.5-101 [facility] Comment on above: Order Comment: Reaso n for Exam Tobacco use;Dyslipidemia;Encounter for screening for maligna Performed By: #### L IPID, TSH3 wRFLX, CMP, CBC #### [facility] [address] [place] [address] Mean Corpuscular HGB Conc 34.3 g/dL Normal 32.5-35.6 [facility] Comment on above: Order Comment: Reaso n for Exam Tobacco use;Dyslipidemia;Encounter for screening for maligna Performed By: #### L IPID, TSH3 wRFLX, CMP, CBC #### [address] Monocytes (Bld) [#/Vol] 0.4 10*3/uL Normal 0.0-0.8 [facility] Comment on above: Order Comment: Reaso n for Exam Tobacco use;Dyslipidemia;Encounter for screening for maligna Performed By: #### L IPID, TSH3 wRFLX, CMP, CBC #### [facility] [address] [place] [address] [place] Monocytes/100 WBC (Bld) 5.9 % Normal . [facility] Comment on above: Order Comment: Reaso n for Exam Tobacco use;Dyslipidemia;Encounter for screening for maligna Performed By: #### L IPID, TSH3 wRFLX, CMP, CBC #### [facility] [address] [id number] [place] Neutrophils (Bld) [#/Vol] 4.6 10*3/uL Normal 1.8-7.7 [facility] Comment on above: Order Comment: Reaso n for Exam Tobacco use;Dyslipidemia;Encounter for screening for maligna Performed By: #### L IPID, TSH3 wRFLX, CMP, CBC #### [facility] [address] [id number] [place] Neutrophils/100 WBC (Bld) 61.5 % Normal . [facility] Comment on above: Order Comment: Reaso n for Exam Tobacco use;Dyslipidemia;Encounter for screening for maligna Performed By: #### L IPID, TSH3 wRFLX, CMP, CBC #### [facility] [address] [id number] [place] Nucleated RBC/100 WBC (Bld) [Ratio] 0.0 % Normal 0-0.5 [facility] Comment on above: Order Comment: Reaso n for Exam Tobacco use;Dyslipidemia;Encounter for screening for maligna Performed By: #### L IPID, TSH3 wRFLX, CMP, CBC #### [facility] [address] [place] [address] [place] Platelet mean volume (Bld) [Entitic vol] 6.7 fL Normal 6.6-10.1 [facility] Comment on above: Order Comment: Reaso n for Exam Tobacco use;Dyslipidemia;Encounter for screening for maligna Performed By: #### L IPID, TSH3 wRFLX, CMP, CBC #### [facility] [address] [place] [address] [place] Platelets (Bld) [#/Vol] 298 10*3/uL Normal 150-450 [facility] Comment on above: Order Comment: Reaso n for Exam Tobacco use;Dyslipidemia;Encounter for screening for maligna Performed By: #### L IPID, TSH3 wRFLX, CMP, CBC #### [facility] [address] RBC (Bld) [#/Vol] 4.61 10*6/uL Normal 3.90-5.60 [facility] Comment on above: Order Comment: Reaso n for Exam Tobacco use;Dyslipidemia;Encounter for screening for maligna Performed By: #### L IPID, TSH3 wRFLX, CMP, CBC #### [facility] [address] [id number] [facility] WBC (Bld) [#/Vol] 7.5 10*3/uL Normal 4.5-11.0 [facility] Comment on above: Order Comment: Reaso n for Exam Tobacco use;Dyslipidemia;Encounter for screening for maligna Performed By: #### L IPID, TSH3 wRFLX, CMP, CBC #### [facility] [address] Comprehensive Metabolic Pane radha 12-07-2020 Albumin [Mass/Vol] 3.6 g/dL Normal 3.2-5.5 [facility] Comment on above: Order Comment: Reaso n for Exam Tobacco use;Dyslipidemia;Encounter for screening for maligna Reason for Exam Dyslipidemia Reason for Exam Hypothyroidism, unspecified type Performed By: #### L IPID, TSH3 wRFLX, CMP, CBC #### [facility] [address] [id number] [facility] Albumin/Globulin [Mass ratio] 1.1 {ratio} Normal [facility] Comment on above: Order Comment: Reaso n for Exam Tobacco use;Dyslipidemia;Encounter for screening for maligna Reason for Exam Dyslipidemia Reason for Exam Hypothyroidism, unspecified type Performed By: #### L IPID, TSH3 wRFLX, CMP, CBC #### [facility] [address] [id number] [facility] ALP [Catalytic activity/Vol] 78 U/L Normal 32-92 [facility] Comment on above: Order Comment: Reaso n for Exam Tobacco use;Dyslipidemia;Encounter for screening for maligna Reason for Exam Dyslipidemia Reason for Exam Hypothyroidism, unspecified type Performed By: #### L IPID, TSH3 wRFLX, CMP, CBC #### [facility] [address] [id number] [facility] ALT [Catalytic activity/Vol] 11 U/L Normal 10-60 [facility] Comment on above: Order Comment: Reaso n for Exam Tobacco use;Dyslipidemia;Encounter for screening for maligna Reason for Exam Dyslipidemia Reason for Exam Hypothyroidism, unspecified type Performed By: #### L IPID, TSH3 wRFLX, CMP, CBC #### [facility] [address] [id number] [facility] AST [Catalytic activity/Vol] 14 U/L Normal 10-42 [facility] Comment on above: Order Comment: Reaso n for Exam Tobacco use;Dyslipidemia;Encounter for screening for maligna Reason for Exam Dyslipidemia Reason for Exam Hypothyroidism, unspecified type Performed By: #### L IPID, TSH3 wRFLX, CMP, CBC #### [facility] [address] Bilirubin [Mass/Vol] 0.2 mg/dL Low 0.3-1.2 [facility] Comment on above: Order Comment: Reaso n for Exam Tobacco use;Dyslipidemia;Encounter for screening for maligna Reason for Exam Dyslipidemia Reason for Exam Hypothyroidism, unspecified type Performed By: #### L IPID, TSH3 wRFLX, CMP, CBC #### [facility] [address] [place] [address] [place] Calcium [Mass/Vol] 9.2 mg/dL Normal 8.2-10.2 [facility] Comment on above: Order Comment: Reaso n for Exam Tobacco use;Dyslipidemia;Encounter for screening for maligna Reason for Exam Dyslipidemia Reason for Exam Hypothyroidism, unspecified type Performed By: #### L IPID, TSH3 wRFLX, CMP, CBC #### [facility] [address] [place] [address] [place] Chloride [Moles/Vol] 98 mmol/L Normal 95-114 [facility] Comment on above: Order Comment: Reaso n for Exam Tobacco use;Dyslipidemia;Encounter for screening for maligna Reason for Exam Dyslipidemia Reason for Exam Hypothyroidism, unspecified type Performed By: #### L IPID, TSH3 wRFLX, CMP, CBC #### [facility] [address] [place] [address] [facility] CO2 [Moles/Vol] 27.7 mmol/L Normal 22.0-30.0 [facility] Comment on above: Order Comment: Reaso n for Exam Tobacco use;Dyslipidemia;Encounter for screening for maligna Reason for Exam Dyslipidemia Reason for Exam Hypothyroidism, unspecified type Performed By: #### L IPID, TSH3 wRFLX, CMP, CBC #### [facility] [address] Creatinine [Mass/Vol] 1.00 mg/dL Normal 0.64-1.27 [facility] Comment on above: Order Comment: Reaso n for Exam Tobacco use;Dyslipidemia;Encounter for screening for maligna Reason for Exam Dyslipidemia Reason for Exam Hypothyroidism, unspecified type Performed By: #### L IPID, TSH3 wRFLX, CMP, CBC #### [facility] [address] Estimated GFR ( Keira > 60 [facility] Comment on above: Order Comment: Reaso n for Exam Tobacco use;Dyslipidemia;Encounter for screening for maligna Reason for Exam Dyslipidemia Reason for Exam Hypothyroidism, unspecified type Result Comment: GFR estimated reference range: According to KDOQI guidelines, <60 ml/min/1.73m2 is sufficient to diagnose a patient with chronic kidney disease. Performed By: #### L IPID, TSH3 wRFLX, CMP, CBC #### [facility] [address] [place] [id number] [place] Estimated GFR (Non- Am > 60 [facility] Comment on above: Order Comment: Reaso n for Exam Tobacco use;Dyslipidemia;Encounter for screening for maligna Reason for Exam Dyslipidemia Reason for Exam Hypothyroidism, unspecified type Performed By: #### L IPID, TSH3 wRFLX, CMP, CBC #### [facility] [address] [place] [id number] [place] Globulin (S) [Mass/Vol] 3.4 g/dL Normal [facility] Comment on above: Order Comment: Reaso n for Exam Tobacco use;Dyslipidemia;Encounter for screening for maligna Reason for Exam Dyslipidemia Reason for Exam Hypothyroidism, unspecified type Performed By: #### L IPID, TSH3 wRFLX, CMP, CBC #### [facility] [address] Glucose [Mass/Vol] 115 mg/dL High 70-100 [facility] Comment on above: Order Comment: Reaso n for Exam Tobacco use;Dyslipidemia;Encounter for screening for maligna Reason for Exam Dyslipidemia Reason for Exam Hypothyroidism, unspecified type Result Comment: [facility] Glucose Reference Range is dependent on time and content of last meal. Glucose of more than 200 mg/dL in a nonstressed, ambulatory subject supports the diagnosis of Diabetes Mellitus. ADA recommended reference range Performed By: #### L IPID, TSH3 wRFLX, CMP, CBC #### [facility] [address] Potassium [Moles/Vol] 4.5 mmol/L Normal 3.5-5.1 [facility] Comment on above: Order Comment: Reaso n for Exam Tobacco use;Dyslipidemia;Encounter for screening for maligna Reason for Exam Dyslipidemia Reason for Exam Hypothyroidism, unspecified type Performed By: #### L IPID, TSH3 wRFLX, CMP, CBC #### [facility] [address] [place] [id number] [facility] Protein [Mass/Vol] 7.0 g/dL Normal 6.1-7.9 [facility] Comment on above: Order Comment: Reaso n for Exam Tobacco use;Dyslipidemia;Encounter for screening for maligna Reason for Exam Dyslipidemia Reason for Exam Hypothyroidism, unspecified type Performed By: #### L IPID, TSH3 wRFLX, CMP, CBC #### [facility] [address] [place] [id number] [place] Sodium [Moles/Vol] 134 mmol/L Low 136-146 [facility] Comment on above: Order Comment: Reaso n for Exam Tobacco use;Dyslipidemia;Encounter for screening for maligna Reason for Exam Dyslipidemia Reason for Exam Hypothyroidism, unspecified type Performed By: #### L IPID, TSH3 wRFLX, CMP, CBC #### [facility] [address] [place] [address] [place] Urea nitrogen [Mass/Vol] 12 mg/dL Normal 9-23 [facility] Comment on above: Order Comment: Reaso n for Exam Tobacco use;Dyslipidemia;Encounter for screening for maligna Reason for Exam Dyslipidemia Reason for Exam Hypothyroidism, unspecified type Performed By: #### L IPID, TSH3 wRFLX, CMP, CBC #### [facility] [address] [place] [address] [facility] Lipid Panelon 12-07-2020 Cholesterol [Mass/Vol] 214 mg/dL High 140-200 [facility] Comment on above: Order Comment: Reaso n for Exam Tobacco use;Dyslipidemia;Encounter for screening for maligna Reason for Exam Dyslipidemia Reason for Exam Hypothyroidism, unspecified type Result Comment: Chol less than 200 mg/dl low risk Chol 201-239 mg/dl borderline risk Chol 240 mg/dl and greater high risk Performed By: #### L IPID, TSH3 wRFLX, CMP, CBC #### [facility] [address] [place] [address] [facility] Cholesterol in HDL [Mass/Vol] 60 mg/dL Normal 29-71 [facility] Comment on above: Order Comment: Reaso n for Exam Tobacco use;Dyslipidemia;Encounter for screening for maligna Reason for Exam Dyslipidemia Reason for Exam Hypothyroidism, unspecified type Result Comment: HDL CHOL ATP-III CLASSIFICATION Cardiovascular Risk HDL > or equal to 60 mg/dL LOW HDL < 40 mg/dL HIGH Performed By: #### L IPID, TSH3 wRFLX, CMP, CBC #### [facility] [address] [place] [address] [place] Cholesterol.total/Christy sterol in HDL [Mass ratio] 3.6 {ratio} Normal <5.0 [facility] Comment on above: Order Comment: Reaso n for Exam Tobacco use;Dyslipidemia;Encounter for screening for maligna Reason for Exam Dyslipidemia Reason for Exam Hypothyroidism, unspecified type Performed By: #### L IPID, TSH3 wRFLX, CMP, CBC #### [facility] [address] [place] [address] [place] LDL Cholesterol,Calculated 130 mg/dL High 0-100 [facility] Comment on above: Order Comment: Reaso n for Exam Tobacco use;Dyslipidemia;Encounter for screening for maligna Reason for Exam Dyslipidemia Reason for Exam Hypothyroidism, unspecified type Result Comment: LDL ATP III CLASSIFICATION LDL less than 100 mg/dL Optimal LDL 100-129 mg/dL Near or above optimal LDL 130-159 mg/dL Borderline high LDL 160-189 mg/dL High LDL greater than 189 mg/dL Very high Performed By: #### L IPID, TSH3 wRFLX, CMP, CBC #### [facility] [address] Triglyceride w/Reflex 121 mg/dL Normal 35-149 [facility] Comment on above: Order Comment: Reaso n for Exam Tobacco use;Dyslipidemia;Encounter for screening for maligna Reason for Exam Dyslipidemia Reason for Exam Hypothyroidism, unspecified type Result Comment: TRIG ATP III CLASSIFICATION TRIG less than 150 mg/dL Normal TRIG 150-199 mg/dL Borderline high TRIG 200-500 mg/dL High TRIG greater than 500 mg/dL Very high Standard traceable to the Center for Disease Conrtrol and Prevention (CDC) test method. Performed By: #### L IPID, TSH3 wRFLX, CMP, CBC #### [facility] [address] VLDL CHOLESTEROL 24 mg/dL Normal [facility] Comment on above: Order Comment: Reaso n for Exam Tobacco use;Dyslipidemia;Encounter for screening for maligna Reason for Exam Dyslipidemia Reason for Exam Hypothyroidism, unspecified type Performed By: #### L IPID, TSH3 wRFLX, CMP, CBC #### [facility] [address] [place] [id number] [facility] Thyroid Stim Hormone w/Rflxo n 12-07-2020 Thyroid Stim Hormone w/Rflx 1.62 u[iU]/mL Normal 0.45-5.33 [facility] Comment on above: Order Comment: Reaso n for Exam Tobacco use;Dyslipidemia;Encounter for screening for maligna Reason for Exam Dyslipidemia Reason for Exam Hypothyroidism, unspecified type Result Comment: PERF ORMED BY: [place] [address] PATHOLOGIST ROLL FINISHER CHANDRAKANT ZARCO M.D. Performed By: #### L IPID, TSH3 wRFLX, CMP, CBC #### [facility] [address] Comprehensive Metabolic Pane radha 05-18-2020 Albumin [Mass/Vol] 3.6 g/dL Normal 3.2-5.5 [facility] Comment on above: Order Comment: Reaso n for Exam Hypothyroidism, unspecified type Reason for Exam Hyperlipidemia, unspecified Performed By: #### C MP, LIPID, THYROID SC, SCAN CBC #### [facility] [address] Albumin/Globulin [Mass ratio] 1.2 {ratio} Normal [facility] Comment on above: Order Comment: Reaso n for Exam Hypothyroidism, unspecified type Reason for Exam Hyperlipidemia, unspecified Performed By: #### C MP, LIPID, THYROID SC, SCAN CBC #### [facility] [address] [place] [id number] [facility] ALP [Catalytic activity/Vol] 71 U/L Normal 32-92 [facility] Comment on above: Order Comment: Reaso n for Exam Hypothyroidism, unspecified type Reason for Exam Hyperlipidemia, unspecified Performed By: #### C MP, LIPID, THYROID SC, SCAN CBC #### [facility] [address] [place] [address] [place] ALT [Catalytic activity/Vol] 13 U/L Normal 10-60 [facility] Comment on above: Order Comment: Reaso n for Exam Hypothyroidism, unspecified type Reason for Exam Hyperlipidemia, unspecified Performed By: #### C MP, LIPID, THYROID SC, SCAN CBC #### [facility] [address] [place] [address] [place] AST [Catalytic activity/Vol] 15 U/L Normal 10-42 [facility] Comment on above: Order Comment: Reaso n for Exam Hypothyroidism, unspecified type Reason for Exam Hyperlipidemia, unspecified Performed By: #### C MP, LIPID, THYROID SC, SCAN CBC #### [facility] [address] [place] [address] [facility] Bilirubin [Mass/Vol] 0.4 mg/dL Normal 0.3-1.2 [facility] Comment on above: Order Comment: Reaso n for Exam Hypothyroidism, unspecified type Reason for Exam Hyperlipidemia, unspecified Performed By: #### C MP, LIPID, THYROID SC, SCAN CBC #### [facility] [address] Calcium [Mass/Vol] 9.2 mg/dL Normal 8.2-10.2 [facility] Comment on above: Order Comment: Reaso n for Exam Hypothyroidism, unspecified type Reason for Exam Hyperlipidemia, unspecified Performed By: #### C MP, LIPID, THYROID SC, SCAN CBC #### [facility] [address] Chloride [Moles/Vol] 100 mmol/L Normal 95-114 [facility] Comment on above: Order Comment: Reaso n for Exam Hypothyroidism, unspecified type Reason for Exam Hyperlipidemia, unspecified Performed By: #### C MP, LIPID, THYROID SC, SCAN CBC #### [facility] [address] CO2 [Moles/Vol] 28.2 mmol/L Normal 22.0-30.0 [facility] Comment on above: Order Comment: Reaso n for Exam Hypothyroidism, unspecified type Reason for Exam Hyperlipidemia, unspecified Performed By: #### C MP, LIPID, THYROID SC, SCAN CBC #### [facility] [address] Creatinine [Mass/Vol] 0.94 mg/dL Normal 0.64-1.27 [facility] Comment on above: Order Comment: Reaso n for Exam Hypothyroidism, unspecified type Reason for Exam Hyperlipidemia, unspecified Performed By: #### C MP, LIPID, THYROID SC, SCAN CBC #### [facility] [address] Estimated GFR ( Keira > 60 Normal [facility] Comment on above: Order Comment: Reaso n for Exam Hypothyroidism, unspecified type Reason for Exam Hyperlipidemia, unspecified Result Comment: GFR estimated reference range: According to KDOQI guidelines, <60 ml/min/1.73m2 is sufficient to diagnose a patient with chronic kidney disease. Performed By: #### C MP, LIPID, THYROID SC, SCAN CBC #### [facility] [address] Estimated GFR (Non- Am > 60 Normal [facility] Comment on above: Order Comment: Reaso n for Exam Hypothyroidism, unspecified type Reason for Exam Hyperlipidemia, unspecified Performed By: #### C MP, LIPID, THYROID SC, SCAN CBC #### [facility] [address] Globulin (S) [Mass/Vol] 3.1 g/dL Normal [facility] Comment on above: Order Comment: Reaso n for Exam Hypothyroidism, unspecified type Reason for Exam Hyperlipidemia, unspecified Performed By: #### C MP, LIPID, THYROID SC, SCAN CBC #### [facility] [address] Glucose [Mass/Vol] 90 mg/dL Normal 70-100 [facility] Comment on above: Order Comment: Reaso n for Exam Hypothyroidism, unspecified type Reason for Exam Hyperlipidemia, unspecified Result Comment: [facility] Glucose Reference Range is dependent on time and content of last meal. Glucose of more than 200 mg/dL in a nonstressed, ambulatory subject supports the diagnosis of Diabetes Mellitus. ADA recommended reference range Performed By: #### C MP, LIPID, THYROID SC, SCAN CBC #### [address] Potassium [Moles/Vol] 4.4 mmol/L Normal 3.5-5.1 [facility] Comment on above: Order Comment: Reaso n for Exam Hypothyroidism, unspecified type Reason for Exam Hyperlipidemia, unspecified Performed By: #### C MP, LIPID, THYROID SC, SCAN CBC #### [facility] [address] Protein [Mass/Vol] 6.7 g/dL Normal 6.1-7.9 [facility] Comment on above: Order Comment: Reaso n for Exam Hypothyroidism, unspecified type Reason for Exam Hyperlipidemia, unspecified Performed By: #### C MP, LIPID, THYROID SC, SCAN CBC #### [facility] [address] Sodium [Moles/Vol] 136 mmol/L Normal 136-146 [facility] Comment on above: Order Comment: Reaso n for Exam Hypothyroidism, unspecified type Reason for Exam Hyperlipidemia, unspecified Performed By: #### C MP, LIPID, THYROID SC, SCAN CBC #### [facility] [address] [place] [address] [facility] Urea nitrogen [Mass/Vol] 9 mg/dL Normal 9-23 [facility] Comment on above: Order Comment: Reaso n for Exam Hypothyroidism, unspecified type Reason for Exam Hyperlipidemia, unspecified Performed By: #### C MP, LIPID, THYROID SC, SCAN CBC #### [facility] [address] [place] [address] [facility] Lipid Panelon 05-18-2020 Cholesterol [Mass/Vol] 177 mg/dL Normal 140-200 [facility] Comment on above: Order Comment: Reaso n for Exam Hypothyroidism, unspecified type Reason for Exam Hyperlipidemia, unspecified Result Comment: Chol less than 200 mg/dl low risk Chol 201-239 mg/dl borderline risk Chol 240 mg/dl and greater high risk Performed By: #### C MP, LIPID, THYROID SC, SCAN CBC #### [facility] [address] [place] [address] [place] Cholesterol in HDL [Mass/Vol] 61 mg/dL Normal 29-71 [facility] Comment on above: Order Comment: Reaso n for Exam Hypothyroidism, unspecified type Reason for Exam Hyperlipidemia, unspecified Result Comment: HDL CHOL ATP-III CLASSIFICATION Cardiovascular Risk HDL > or equal to 60 mg/dL LOW HDL < 40 mg/dL HIGH Performed By: #### C MP, LIPID, THYROID SC, SCAN CBC #### [facility] [address] [place] [address] [place] Cholesterol.total/Christy sterol in HDL [Mass ratio] 2.9 {ratio} Normal <5.0 [facility] Comment on above: Order Comment: Reaso n for Exam Hypothyroidism, unspecified type Reason for Exam Hyperlipidemia, unspecified Performed By: #### C MP, LIPID, THYROID SC, SCAN CBC #### [facility] [address] [place] [address] [place] LDL Cholesterol,Calculated 103 mg/dL High 0-100 [facility] Comment on above: Order Comment: Reaso n for Exam Hypothyroidism, unspecified type Reason for Exam Hyperlipidemia, unspecified Result Comment: LDL ATP III CLASSIFICATION LDL less than 100 mg/dL Optimal LDL 100-129 mg/dL Near or above optimal LDL 130-159 mg/dL Borderline high LDL 160-189 mg/dL High LDL greater than 189 mg/dL Very high Performed By: #### C MP, LIPID, THYROID SC, SCAN CBC #### [facility] [address] Triglyceride w/Reflex 65 mg/dL Normal 35-149 [facility] Comment on above: Order Comment: Reaso n for Exam Hypothyroidism, unspecified type Reason for Exam Hyperlipidemia, unspecified Result Comment: TRIG ATP III CLASSIFICATION TRIG less than 150 mg/dL Normal TRIG 150-199 mg/dL Borderline high TRIG 200-500 mg/dL High TRIG greater than 500 mg/dL Very high Standard traceable to the Center for Disease Conrtrol and Prevention (CDC) test method. Performed By: #### C MP, LIPID, THYROID SC, SCAN CBC #### [facility] [address] [place] [address] VLDL CHOLESTEROL 13 mg/dL Normal [facility] Comment on above: Order Comment: Reaso n for Exam Hypothyroidism, unspecified type Reason for Exam Hyperlipidemia, unspecified Performed By: #### C MP, LIPID, THYROID SC, SCAN CBC #### [facility] [address] Scan and CBCon 05-18-2020 Basophils (Bld) [#/Vol] 0.0 10*3/uL Normal 0.0-0.2 [facility] Comment on above: Order Comment: Reason for Exam Hypothyroidism, unspecified type Performed By: #### C MP, LIPID, THYROID SC, SCAN CBC #### [facility] [address] [place] [address] [place] Basophils/100 WBC (Bld) 0.8 % Normal . [facility] Comment on above: Order Comment: Reason for Exam Hypothyroidism, unspecified type Performed By: #### C MP, LIPID, THYROID SC, SCAN CBC #### [facility] [address] [place] [address] [place] Eosinophils (Bld) [#/Vol] 0.5 10*3/uL High 0.0-0.45 [facility] Comment on above: Order Comment: Reason for Exam Hypothyroidism, unspecified type Performed By: #### C MP, LIPID, THYROID SC, SCAN CBC #### [facility] [address] Eosinophils/100 WBC (Bld) 7.9 % Normal . [facility] Comment on above: Order Comment: Reason for Exam Hypothyroidism, unspecified type Performed By: #### C MP, LIPID, THYROID SC, SCAN CBC #### [address] Erythrocyte distribution width (RBC) [Ratio] 13.3 % Normal 12.0-14.8 [facility] Comment on above: Order Comment: Reason for Exam Hypothyroidism, unspecified type Performed By: #### C MP, LIPID, THYROID SC, SCAN CBC #### [address] Hematocrit (Bld) [Volume fraction] 44.3 % Normal 38.8-50.0 [facility] Comment on above: Order Comment: Reason for Exam Hypothyroidism, unspecified type Performed By: #### C MP, LIPID, THYROID SC, SCAN CBC #### [address] Hemoglobin (Bld) [Mass/Vol] 14.8 g/dL Normal 13.0-17.0 [facility] Comment on above: Order Comment: Reason for Exam Hypothyroidism, unspecified type Performed By: #### C MP, LIPID, THYROID SC, SCAN CBC #### [place] [address] [place] Lymphocytes (Bld) [#/Vol] 2.3 10*3/uL Normal 1.00-4.8 [facility] Comment on above: Order Comment: Reason for Exam Hypothyroidism, unspecified type Performed By: #### C MP, LIPID, THYROID SC, SCAN CBC #### [address] Lymphocytes/100 WBC (Bld) 38.6 % Normal . [facility] Comment on above: Order Comment: Reason for Exam Hypothyroidism, unspecified type Performed By: #### C MP, LIPID, THYROID SC, SCAN CBC #### [address] MCH (RBC) [Entitic mass] 32.0 pg Normal 27.5-35.2 [facility] Comment on above: Order Comment: Reason for Exam Hypothyroidism, unspecified type Performed By: #### C MP, LIPID, THYROID SC, SCAN CBC #### [address] MCV (RBC) [Entitic vol] 95.7 fL Normal 83.5-101 [facility] Comment on above: Order Comment: Reason for Exam Hypothyroidism, unspecified type Performed By: #### C MP, LIPID, THYROID SC, SCAN CBC #### [address] Mean Corpuscular HGB Conc 33.5 g/dL Normal 32.5-35.6 [facility] Comment on above: Order Comment: Reason for Exam Hypothyroidism, unspecified type Performed By: #### C MP, LIPID, THYROID SC, SCAN CBC #### [address] Monocytes (Bld) [#/Vol] 0.4 10*3/uL Normal 0.0-0.8 [facility] Comment on above: Order Comment: Reason for Exam Hypothyroidism, unspecified type Performed By: #### C MP, LIPID, THYROID SC, SCAN CBC #### [address] Monocytes/100 WBC (Bld) 7.0 % Normal . [facility] Comment on above: Order Comment: Reason for Exam Hypothyroidism, unspecified type Performed By: #### C MP, LIPID, THYROID SC, SCAN CBC #### [address] Neutrophils (Bld) [#/Vol] 2.7 10*3/uL Normal 1.8-7.7 [facility] Comment on above: Order Comment: Reason for Exam Hypothyroidism, unspecified type Performed By: #### C MP, LIPID, THYROID SC, SCAN CBC #### [place] [address] [place] Neutrophils/100 WBC (Bld) 45.7 % Normal . [facility] Comment on above: Order Comment: Reason for Exam Hypothyroidism, unspecified type Performed By: #### C MP, LIPID, THYROID SC, SCAN CBC #### [place] [address] [place] Nucleated RBC/100 WBC (Bld) [Ratio] 0.1 % Normal 0-0.5 [facility] Comment on above: Order Comment: Reason for Exam Hypothyroidism, unspecified type Performed By: #### C MP, LIPID, THYROID SC, SCAN CBC #### [address] Platelet Estimate Normal Normal Normal [facility] Comment on above: Order Comment: Reason for Exam Hypothyroidism, unspecified type Performed By: #### C MP, LIPID, THYROID SC, SCAN CBC #### [address] Platelet mean volume (Bld) [Entitic vol] 7.5 fL Normal 6.6-10.1 [facility] Comment on above: Order Comment: Reason for Exam Hypothyroidism, unspecified type Performed By: #### C MP, LIPID, THYROID SC, SCAN CBC #### [address] Platelet Morphology Normal Normal Normal [facility] Comment on above: Order Comment: Reason for Exam Hypothyroidism, unspecified type Result Comment: PERF ORMED BY: [place] [address] PATHOLOGIST ROLL FINISHER CHANDRAKANT ZARCO M.D. Performed By: #### C MP, LIPID, THYROID SC, SCAN CBC #### [place] [address] [place] Platelets (Bld) [#/Vol] 252 10*3/uL Normal 150-450 [facility] Comment on above: Order Comment: Reason for Exam Hypothyroidism, unspecified type Performed By: #### C MP, LIPID, THYROID SC, SCAN CBC #### [address] [address] [place] RBC (Bld) [#/Vol] 4.63 10*6/uL Normal 3.90-5.60 [facility] Comment on above: Order Comment: Reason for Exam Hypothyroidism, unspecified type Performed By: #### C MP, LIPID, THYROID SC, SCAN CBC #### [facility] [address] [place] [address] RBC morphology finding Nom (Bld) Normal Normal [facility] Comment on above: Order Comment: Reason for Exam Hypothyroidism, unspecified type Performed By: #### C MP, LIPID, THYROID SC, SCAN CBC #### [facility] [address] [place] [address] WBC (Bld) [#/Vol] 5.9 10*3/uL Normal 4.5-11.0 [facility] Comment on above: Order Comment: Reason for Exam Hypothyroidism, unspecified type Performed By: #### C MP, LIPID, THYROID SC, SCAN CBC #### [facility] [address] [place] [address] THYROID SCREENon 05-18-2020 Free T4 [Mass/Vol] 0.98 ng/dL Normal 0.61-1.12 [facility] Comment on above: Order Comment: Reaso n for Exam Hypothyroidism, unspecified type Reason for Exam Hyperlipidemia, unspecified Performed By: #### C MP, LIPID, THYROID SC, SCAN CBC #### [address] TSH Qn 0.92 m[IU]/L Normal 0.45-5.33 [facility] Comment on above: Order Comment: Reaso n for Exam Hypothyroidism, unspecified type Reason for Exam Hyperlipidemia, unspecified Result Comment: PERF ORMED BY: [place] [address] PATHOLOGIST ROLL FINISHER CHANDRAKANT ZARCO M.D. Performed By: #### C MP, LIPID, THYROID SC, SCAN CBC #### [address] Vital Signs Date Time Vital Sign Value Performing Clinician Faci lity 09-06-2022 10:51-0400 Body height 170.1 cm Jorge Mace MD Work Phone: [facility] 09-06-2022 10:51-0400 Body mass index (BMI) [Ratio] 27.65 kg/m2 Jorge Mace MD Work Phone: [facility] 09-06-2022 10:51-0400 Body weight 80 kg Jorge Mace MD Work Phone: [facility] Encounters Encounter Date Encounter Type Care Provider Facility Start: 05-25-2023 End: 05-25-2023 ambulatory [facility] Start: 01-29-2023 End: 01-29-2023 ambulatory [facility] Start: 12-11-2022 End: 12-11-2022 ambulatory [facility] Start: 09-06-2022 End: 09-06-[address] Arleth Espino Facility:[facility] Start: 09-06-2022 End: 09-06-2022 Subsequent hospital visit by physician Jorge Mace MD Work Phone: [facility] Comment on above: Solitary pulmonary n odule; Nicotine dependence, cigarettes, uncomplicated; Chronic obstructive pulmonary disease, unspecified (CMS/HCC); Gastro-esophageal reflux disease without esophagitis; Pure hypercholesterolemia, unspecified; Anxiety disorder, unspecified; Depression, unspecified; Hyperlipidemia, unspecified; Other forms of dyspnea; Hypothyroidism, unspecified; Cannabis abuse, uncomplicated Start: 08-24-2022 YUDITH, Provider : Jennifer Sykes, Status: Pen, Time: 10:30 AM Jorge Mace MD Work Phone: [facility] Work Phone: Start: 08-24-2022 ambulatory PCP UNKNOWN Facility:[facility] Start: 08-23-2022 AUDIT Jorge Mace MD Work Phone: [facility] Work Phone: Start: 07-28-2022 End: 07-29-2022 ambulatory ARLETH ESPINO . Facility:[facility] Start: 07-10-2022 Encounter for preprocedural laboratory examination ARLETH ESPINO . [facility] Start: 07-10-2022 End: 07-10-2022 ambulatory ARLETH ESPINO . Facility:[facility] Start: 07-09-2022 Encounter for preprocedural cardiovascular examination ARLETH ESPINO . [facility] Start: 07-06-2022 End: 07-07-2022 ambulatory ARLETH ESPION . Facility:[facility] Start: 07-06-2022 End: 07-07-2022 Encounter for preprocedural laboratory examination ARLETH ESPINO . Facility:[facility] Start: 07-03-2022 End: 07-04-2022 ambulatory ARLETH ESPINO . Facility:[facility] Start: 07-03-2022 End: 07-04-2022 Encounter for preprocedural cardiovascular examination ARLETH ESPINO . Facility:[facility] Start: 06-22-2022 End: 06-23-[address] GWEN JONES Facility:[facility] Start: 06-21-2022 End: 06-22-[address] DOT JOSEPH Facility:[facility] Start: 06-12-2022 End: 06-13-[address] GWEN JONES Facility:[facility] Start: 01-24-2022 End: 01-25-[address] GWEN JONES Facility:[facility] Patient encounter status Ashlee Mace MD Work Phone: [facility] Work Phone: Procedures Date Procedure Procedure Detail Performing Clinician Start: 09-06-2022 Bacteria identified in Unspecified specimen by Culture Jorge Mace MD Work Phone: Start: 09-06-2022 Fungus identified in Unspecified specimen by Culture Jorge Mace MD Work Phone: Start: 09-06-2022 Mycobacterium sp jerome ntified in Unspecified specimen by Organism specific culture Jorge Mace MD Work Phone: Start: 09-06-2022 Bronchoscopy Arleth Shante verenice Espino DO Work Phone: Start: 09-06-2022 CYTOLOGY NON-CUSTOMER SERVICE SECURITY OFFICER RESULTS Jorge Mace MD Work Phone: Start: 09-06-2022 SURGICAL PATHOLOGY RESULTS Jorge Mace MD Work Phone: Start: 01-24-[address] DOT JOSEPH Comment on above: Performed By: #### C CPAB #### [facility] [address] [address] [address] Hamida Mendez Plan of Treatment Date Care Activity Detail Author Start: 01-22-2023 NPV, Provider: Glen [facility], Status: Pen, Time: 9:00 AM NPV, Provider: Glen He, Status: Pen, Time: 9:00 AM [facility] Work Phone: Start: 11-17-2022 Influenza vaccination Influenza Vaccine (#1) [facility] Start: 2018 Zoster Vaccines (1 of 2) Zoster Vaccines (1 of 2) [facility] Start: 1990 DTaP/Tdap/Td Vaccines (1 - Tdap) DTaP/Tdap/Td Vaccines (1 - Tdap) [facility] Start: 1987 Hepatitis A Vaccines (1 of 2 - Risk 2-dose series) Hepatitis A Vaccines (1 of 2 - Risk 2-dose series) [facility] Start: 1986 Diabetes mellitus screening Diabetes Screening [facility] Start: 1986 Hepatitis C screening Hepatitis C Screening [facility] Start: 1974 Pneumococcal Vaccine: Pediatrics (0 to 5 Years) and At-Risk Patients (6 to 64 Years) (1 - PCV) Pneumococcal Vaccine: Pediatrics (0 to 5 Years) and At-Risk Patients (6 to 64 Years) (1 - PCV) [facility] Start: 1969 MMR Vaccines (1 of 1 - Standard series) MMR Vaccines (1 of 1 - Standard series) [facility] Start: 1968 COVID-19 Vaccine (#1) COVID-19 Vaccine (#1) [facility] Start: 1968 Hepatitis B Vaccines (1 of 3 - 3-dose series) Hepatitis B Vaccines (1 of 3 - 3-dose series) [facility] Start: 1968 HIV screening HIV Screening [facility] Start: 1968 Lipid panel Lipid Panel [facility] Start: 1968 Screening for malignant neoplasm of colon [facility] Start: 1968 Thyroid stimulating hormone measurement TSH Level [facility] Start: 1968 Yearly Adult Physical Yearly Adult Physical [facility] Immunizations Immunization Date Immunization Notes Care Provider Fa cility 01-27-2022 Pfizer COVID-19 Vac Bivalent 30 MCG/0.3ML Intramuscular Suspension Referring Provider Unknown [facility] Work Phone: 08-09-2021 Comirnaty 30 MCG/0.3 ML Intramuscular Suspension Referring Provider Unknown [facility] Work Phone: 01-24-2021 Pfizer-BioNTech COVI D-19 Vacc 30 MCG/0.3ML Intramuscular Suspension Referring Provider Unknown [facility] Work Phone: 07-14-2020 Pfizer-BioNTech COVI D-19 Vacc 30 MCG/0.3ML Intramuscular Suspension Referring Provider Unknown [facility] Work Phone: 06-14-2020 Pfizer-BioNTech COVI D-19 Vacc 30 MCG/0.3ML Intramuscular Suspension Referring Provider Unknown [facility] Work Phone: Payers Date Payer Category Payer Unknown [id number] 1968 Unknown [id number] 1968 Unknown [id number] 1968 Unknown [id number] 1968 Unknown [id number] 1968 Unknown [id number] 1968 Unknown [id number] 1968 Unknown [id number] 1968 Unknown [id number] 1968 Unknown [id number] 1968 Unknown [id number] 1959 Unknown [id number] Unknown [facility] Social History Date Type Detail Facility Tobacco smoking status MSIS Tobacco smoking consumption unknown [facility] Work Phone: Start: 1970 Sex Assigned At Not on file [facility] Work Phone: Gender identity Not on file [facility] Work Phone: Progress note 05-25-2023 Note Date & Type Note Facility 05-25-2023 Note Patient here for 3 m o follow up chest pain and SOB. His insurance denied request for nuclear stress test and echo. He states he's still having all the symptoms of chest pain, SOB, palpitations, and lightheadedness. Still tolerating Crestor well he says. Review of Systems Cardiovascular: Positive for chest pain, dyspnea on exertion and palpitations. Respiratory: Positive for cough, shortness of breath and wheezing. Musculoskeletal: Positive for arthritis, back pain and joint pain. Neurological: Positive for light-headedness. All other systems reviewed and are negative. [facility] Progress note 01-29-2023 Note Date & Type Note Facility 01-29-2023 Note Cardiology Clinic No te Chief Complaint: chest pain HPI: Alona Hodge is a 52 y.o. male With a past medical history including hyperlipidemia, generalized anxiety disorder, Tobacco abuse, and COPD. Patient was referred to Cardiology clinic for evaluation of chest pain. Patient reports symptoms of chest pain over the past few months. It is substernal and without radiation. It is worsened with activity and releaved with rest. He reports chronic shortness of breath, due to his COPD. He denies any worsening in his shortness of breath. He denies any lower extreme edema, orthopnea, paroxysmal nocturnal dyspnea. No near-syncope or syncope. Patient is currently being evaluated for lung nodule. No additional cardiac complaints or concerns at the present time Echocardiogram and stress test were ordered during previous visit. Unfortunately, these were both denied by insurance. Patient reported that he quit smoking since our last clinic visit. I encouraged him for his efforts and emphasized importance of continued smoking cessation. Cardiology ROS: GENERAL: Denies fever, chills, night sweats, weight loss. HEENT: Denies changes in vision, photophobia, changes in hearing, epistaxis, oral bleeding. CARDIOVASCULAR: As per HPI RESPIRATORY: Denies SOB, coughing, wheezing GI: Denies abdominal pain, nausea/vomiting, heartburn, melena/hematochezia. RENAL: Denies dysuria, hematuria, flank pain. MSK: Denies muscle weakness/pain, arthralgias/joint pain. NEUROLOGIC: Denies LOC, weakness, numbness, headaches. SKIN: Denies abnormal rashes or bleeding. PSYCH: Denies significant anxiety, depression, sleep disturbances. Past Medical History He has a past medical history of Chest pain, COPD (chronic obstructive pulmonary disease) (CMS/[facility]), Hyperlipidemia, and Lung mass. Surgical History He has a past surgical history that includes Back surgery. Social History He reports that he has been smoking cigarettes. He has been smoking an average of .25 packs per day. He has never used smokeless tobacco. He reports current alcohol use. No history on file for drug use. Family History Family History Problem Relation Name Age of Onset Heart attack Mother Heart attack Father Other (pacemaker) Father's Brother Medications Current Outpatient Medications on File Prior to Visit Medication Sig Dispense Refill aspirin 81 mg EC tablet Take 81 mg by mouth in the morning. buPROPion XL (Wellbutrin XL) 150 mg 24 hr tablet Take 150 mg by mouth in the morning. citalopram (CeleXA) 20 mg tablet Take 30 mg by mouth in the morning. Incruse Ellipta 62.5 mcg/actuation inhalation INHALE 1 PUFF BY MOUTH ONCE DAILY levothyroxine (Synthroid, Levoxyl) 112 mcg tablet 1 (one) time each day at the same time. mometasone-formoterol (Dulera) 200-5 mcg/actuation inhaler Inhale 2 puffs in the morning and at bedtime. Mucus Relief ER 600 mg 12 hr tablet Take 600 mg by mouth in the morning and at bedtime. rosuvastatin (Crestor) 20 mg tablet Take 1 tablet (20 mg) by mouth in the morning. (Patient taking differently: Take 20 mg by mouth at bedtime.) 90 tablet 3 Ventolin HFA 90 mcg/actuation inhaler Inhale 2 puffs every 4 (four) hours if needed. lovastatin (Mevacor) 40 mg tablet Take 40 mg by mouth at bedtime. No current facility-administered medications on file prior to visit. Allergies Patient has no known allergies. Physical Exam VITAL SIGNS: BP 113/70 (BP Location: Left arm, Patient Position: Sitting) Pulse 62 Ht 1.702 m (5' 7 ) Wt 81.6 kg (180 lb) SpO2 95% BMI 28.19 kg/m??? Constitutional: Well developed, Well nourished, No acute distress, Non-toxic appearance. HENT: Normocephalic, Atraumatic, Bilateral external ears have normal appearance, Nose appears normal, nares are patent. Eyes: PERRLA, EOMI, Conjunctiva normal, No discharge. Neck: Normal range of motion, No tenderness, Supple, No stridor. No cervical lymphadenopathy noted. Cardiovascular: Normal heart rate, Normal rhythm, No murmurs, No rubs, No gallops. Thorax & Lungs: Normal breath sounds, No respiratory distress, No wheezing, No chest tenderness to palpation. Abdomen: Bowel sounds normal, Soft, Nontender, No masses, No pulsatile masses. Skin: Warm, Dry, No erythema, No rash. Back: No tenderness, No CVA tenderness. Extremities: Intact distal pulses, No edema, No tenderness, No cyanosis, No clubbing. Musculoskeletal: Grossly normal strength in extremities Neurologic: Alert & oriented x 3, no gross focal neurological deficits Psychiatric: Affect normal, Judgment normal, Mood normal. Impression: -Chest pain -Shortness of breath: secondary to COPD vs anginal equivalent -Hyperlipidemia, -Tobacco abuse with recent smoking cessation Plan: -Patient is having chest pain that is concerning for angina. He is also having shortness of breath, concerning for anginal equivalent. Prudent to rule out ischemia. We will order treadmill exer (more content not included)... [facility] Progress note 01-29-2023 Note Date & Type Note Facility 01-29-2023 Note Patient here for [facility] low up denied echo and stress test. He is doing well so far on rosuvastatin. Continues to have chest pain, SOB, and palpitations. Denies lightheadedness and LE edema. Review of Systems Cardiovascular: Positive for chest pain, dyspnea on exertion and palpitations. Respiratory: Positive for cough, shortness of breath and wheezing. Musculoskeletal: Positive for arthritis, back pain and joint pain. Neurological: Positive for light-headedness. All other systems reviewed and are negative. [facility] Progress note 12-11-2022 Note Date & Type Note Facility 12-11-2022 Note Cardiology Clinic No te Chief Complaint: chest pain HPI: Alona Hodge is a 52 y.o. male With a past medical history including hyperlipidemia, generalized anxiety disorder, Tobacco abuse, and COPD. Patient was referred to Cardiology clinic for evaluation of chest pain. Patient reports symptoms of chest pain over the past few months. Symptoms occur both at rest and with exertion, do not seem to be worsened with exertion. He reports chronic shortness of breath, due to his COPD. He denies any worsening in his shortness of breath. He denies any lower extreme edema, orthopnea, paroxysmal nocturnal dyspnea. No near-syncope or syncope. Patient is currently being evaluated for lung nodule. No additional cardiac complaints or concerns at the present time Patient denies any previous history of CVA, PVD, DM, HTN, Depressed LVEF, and CAD. Patient has a [id number] smoking history. He is cutting down on his smoking is down to 2 cigarettes/day Cardiology ROS: GENERAL: Denies fever, chills, night sweats, weight loss. HEENT: Denies changes in vision, photophobia, changes in hearing, epistaxis, oral bleeding. CARDIOVASCULAR: As per HPI RESPIRATORY: Denies SOB, coughing, wheezing GI: Denies abdominal pain, nausea/vomiting, heartburn, melena/hematochezia. RENAL: Denies dysuria, hematuria, flank pain. MSK: Denies muscle weakness/pain, arthralgias/joint pain. NEUROLOGIC: Denies LOC, weakness, numbness, headaches. SKIN: Denies abnormal rashes or bleeding. PSYCH: Denies significant anxiety, depression, sleep disturbances. Past Medical History He has a past medical history of Chest pain, COPD (chronic obstructive pulmonary disease) (CMS/[facility]), Hyperlipidemia, and Lung mass. Surgical History He has a past surgical history that includes Back surgery. Social History He reports that he has been smoking cigarettes. He has been smoking an average of .25 packs per day. He has never used smokeless tobacco. He reports current alcohol use. No history on file for drug use. Family History Family History Problem Relation Name Age of Onset Heart attack Mother Heart attack Father Other (pacemaker) Father's Brother Medications Current Outpatient Medications on File Prior to Visit Medication Sig Dispense Refill buPROPion XL (Wellbutrin XL) 150 mg 24 hr tablet Take 150 mg by mouth in the morning. citalopram (CeleXA) 20 mg tablet Take 30 mg by mouth in the morning. Incruse Ellipta 62.5 mcg/actuation inhalation INHALE 1 PUFF BY MOUTH ONCE DAILY levothyroxine (Synthroid, Levoxyl) 112 mcg tablet 1 (one) time each day at the same time. lovastatin (Mevacor) 40 mg tablet Take 40 mg by mouth at bedtime. mometasone-formoterol (Dulera) 200-5 mcg/actuation inhaler Inhale 2 puffs in the morning and at bedtime. Mucus Relief ER 600 mg 12 hr tablet Take 600 mg by mouth in the morning and at bedtime. Ventolin HFA 90 mcg/actuation inhaler Inhale 2 puffs every 4 (four) hours if needed. No current facility-administered medications on file prior to visit. Allergies Patient has no known allergies. Physical Exam VITAL SIGNS: BP 124/73 (BP Location: Left arm, Patient Position: Sitting) Pulse 62 Ht 1.702 m (5' 7 ) Wt 82.6 kg (182 lb) SpO2 94% BMI 28.51 kg/m??? Constitutional: Well developed, Well nourished, No acute distress, Non-toxic appearance. HENT: Normocephalic, Atraumatic, Bilateral external ears have normal appearance, Nose appears normal, nares are patent. Eyes: PERRLA, EOMI, Conjunctiva normal, No discharge. Neck: Normal range of motion, No tenderness, Supple, No stridor. No cervical lymphadenopathy noted. Cardiovascular: Normal heart rate, Normal rhythm, No murmurs, No rubs, No gallops. Thorax & Lungs: Normal breath sounds, No respiratory distress, No wheezing, No chest tenderness to palpation. Abdomen: Bowel sounds normal, Soft, Nontender, No masses, No pulsatile masses. Skin: Warm, Dry, No erythema, No rash. Back: No tenderness, No CVA tenderness. Extremities: Intact distal pulses, No edema, No tenderness, No cyanosis, No clubbing. Musculoskeletal: Grossly normal strength in extremities Neurologic: Alert & oriented x 3, no gross focal neurological deficits Psychiatric: Affect normal, Judgment normal, Mood normal. Impression: -Chest pain, atypical in nature -Shortness of breath: secondary to COPD vs anginal equivalent -Hyperlipidemia, on lovastatin -Tobacco abuse Plan: -Given atypical chest pain, prudent to rule out ischemia. Will obtain treadmill exercise stress test with nuclear myocardial perfusion imaging. Additionally, will order echocardiogram to assess LVEF, wall motion, and valvular function. -ASA 81 mg daily for presumed CAD until further testing -Discontinue Lovastatin and start Resuvastatin 20 mg daily (high intensity statin) -Further recommendations to follow testing results -I spent over 6 minutes counseling the patient on the importance of smok (more content not included)... [facility] Progress note 12-11-2022 Note Date & Type Note Facility 12-11-2022 Note New patient here to establish care. Ref from Dr. Espino for chest pain. No cardiac hx. Mother and father both had ME. He gets intermittent chest pain with activity. Has COPD so is always short of breath . Also feels lightheaded and palpitations with activity at times. Says the chest pain started a few weeks ago. Review of Systems Cardiovascular: Positive for chest pain, dyspnea on exertion and palpitations. Respiratory: Positive for cough, shortness of breath and wheezing. Musculoskeletal: Positive for arthritis, back pain and joint pain. Neurological: Positive for light-headedness. All other systems reviewed and are negative. [facility] Clinical Note 09-06-2022 Note Date & Type Note Facility 09-06-2022 Note Patient Name: Alona Hodge Procedure Date: 09/06/2022 11:36 AM Date of : 1970 Room: Bronchoscopy Room 1 Attending MD: Jorge Mace MD, [id number] Procedure: Bronchoscopy Indications: Left upper lobe nodule Providers: Jorge Mace MD (Doctor), Michelle Borden RN (Nurse), Corinne Franco, Internet Site Designer (Internet Site Designer), Steven Mariscal MD (Fellow) Referring MD: Arleth Espino DO (Referring MD) Medicines: General Anesthesia, See the Anesthesia note for documentation of the administered medications Complications: No immediate complications Procedure: Pre-Anesthesia Assessment: - A History and Physical has been performed. Patient meds and allergies have been reviewed. The risks and benefits of the procedure and the sedation options and risks were discussed with the patient. All questions were answered and informed consent was obtained. Patient identification and proposed procedure were verified prior to the procedure by the physician, the nurse and the friend of the court in the procedure room at 11:36 AM. Mental Status Examination: normal. Airway Examination: Please refer to anesthesia staff note. Respiratory Examination: clear to auscultation. CV Examination: normal. ASA Grade Assessment: II - A patient with mild systemic disease. After reviewing the risks and benefits, the patient was deemed in satisfactory condition to undergo the procedure. The anesthesia plan was to use general anesthesia. Immediately prior to administration of medications, the patient was re-assessed for adequacy to receive sedatives. The heart rate, respiratory rate, oxygen saturations, blood pressure, adequacy of pulmonary ventilation, and response to care were monitored throughout the procedure. The physical status of the patient was re-assessed after the procedure. After obtaining informed consent, the therapeutic bronchoscope was introduced through the mouth, via the endotracheal tube (the patient was intubated for the procedure) and advanced to the tracheobronchial tree. the linear ultrasound bronchoscope was introduced through the mouth, via the endotracheal tube (the patient was intubated for the procedure) and advanced to the tracheobronchial tree. The procedure was accomplished without difficulty. The patient tolerated the procedure well. Total fluoroscopy time was 7 minutes, 4 seconds. The total duration of the procedure was 1 hour and 13 minutes. Findings: The endotracheal tube is in good position. The trachea is of normal caliber. The arcadio is sharp. The tracheobronchial tree was examined to at least the first subsegmental level. Bronchial mucosa and anatomy are normal; there are no endobronchial lesions, and no secretions. Electromagnetic navigation bronchoscopy utilizing the PlanStan system with iLogic upgrade was performed. The CT scan was used for planning purposes. A virtual bronchoscopic image was generated using the planning software. The target in the left upper lobe was marked. A nodule 2.2 cm in size was found and a pathway was created. After a complete airway exam, the locatable guide/extended working channel was inserted and an automatic registration was performed. The navigation phase was then begun to locate the target lesion(s). Positioning was confirmed using fluoroscopy and centrally (in relation to the lesion) was confirmed using the Olympus radial probe US catheter. The locatable guide was removed from the extended working channel. A peripheral radial ultrasound probe with a sheath was utilized in order to assist with guiding the biopsy needle and better localize the lesion in the left upper lobe. Transbronchial needle aspirations of a nodule were performed in the left upper lobe using an Olympus PeriView Flex 21 gauge needle and sent for routine cytology and bacterial, AFB and fungal analysis. The procedure was guide (more content not included)... [facility] - Evaluation note Note Date & Type Note Facility Evaluation note Diagnosis Solitary pulmonary nodule Nicotine dependence, cigarettes, uncomplicated Chronic obstructive pulmonary disease, unspecified (CMS/HCC) Gastro-esophageal reflux disease without esophagitis Pure hypercholesterolemia, unspecified Anxiety disorder, unspecified Depression, unspecified Hyperlipidemia, unspecified Other forms of dyspnea Hypothyroidism, unspecified Cannabis abuse, uncomplicated documented in this encounter [facility] Work Phone: Summary Purpose Family History No Family History Records FoundNo Family History Records FoundNo Family History Records FoundNo Family History Records FoundNo Family History Records FoundNo Family History Records Found Advance Directives No Advanced Directives Records FoundNo Advanced Directives Records FoundNo Advanced Directives Records FoundNo Advanced Directives Records FoundNo Advanced Directives Records FoundNo Advanced Directives Records Found Additional Source Comments (unrecognized sect ion and content) No Status Records FoundNo Status Records FoundNo Status Records FoundNo Status Records FoundNo Status Records Found INFORMATION SOURCE (unrecogn ized section and content) DATE CREATED AUTHOR 05/05/2021 [facility] DATE CREATED AUTHOR AUTHOR'S ORGANIZ ATION 10/22/2021 [facility] DATE CREATED AUTHOR AUTHOR'S ORGANIZ ATION 08/02/2022 [facility] DATE CREATED AUTHOR AUTHOR'S ORGANIZ ATION 08/29/2022 [employer] DATE CREATED AUTHOR AUTHOR'S ORGANIZ ATION 10/26/2022 [facility] DATE CREATED AUTHOR AUTHOR'S ORGANIZ ATION 05/29/2023 [facility] Reason for Visit (unrecogniz ed section and content) Reason Comments Other Bronch EBUS [address] FOR RECORDS PERTAINING TO PATIENTS WHO ARE OR HAVE BEEN ENROLLED IN A CHEMICAL DEPENDENCY/SUBSTANCEABUSE PROGRAM, SOME INFORMATION MAY BE OMITTED. This clinical summary was aggregated from multiple sources. Caution should be exercised in using it in the provision of clinical care. This summary normalizes information from multiple sources, and as a consequence, information in this document may materially change the coding, format and clinical context of patient data. In addition, data may be omitted in some cases. CLINICAL DECISIONS SHOULD BE BASED ON THE PRIMARY CLINICAL RECORDS. [facility] [employer] provides no warranty or guarantee of the accuracy or completeness of information in this document.
[2023-06-13 12:51] LABS: Basophils Absolute Auto 0.1 10^3/uL (0.0-0.1); Basophils Percent Auto 0.9 % (0.2-2.0); Eosinophils Absolute Auto 0.4 10^3/uL (0.0-0.7); Eosinophils Percent Auto 4.7 % (0.9-7.0); Hematocrit 44.2 % (42.0-54.0); Hemoglobin 14.4 g/dL (14.0-18.0); Immature Granulocytes Abs Auto 0.03 10^3/uL (0.00-0.03); Immature Granulocytes Pct Auto 0.4 % (0.0-0.5); Lymphocytes Absolute Auto 2.5 10^3/uL (1.2-3.8); Mean Corpuscular HGB Conc 32.6 g/dL (29.9-35.2); Mean Corpuscular Hemoglobin 31.6 pg (25.9-34.0); Mean Corpuscular Volume 97.1 fL (80.0-94.0); Mean Platelet Volume 8.6 fL (9.5-13.5); Monocytes Absolute Auto 0.6 10^3/uL (0.3-0.8); Monocytes Percent Auto 7.3 % (1.7-12.0); Neutrophils Absolute Auto 4.3 10^3/uL (1.4-6.5); Neutrophils Percent Auto 54.7 % (43.0-75.0); Platelet Count 305 10^3/uL (150-450); Red Blood Count 4.55 10^6/uL (4.70-6.10); White Blood Count 7.9 10^3/uL (4.0-11.0)
[2023-06-13 13:41] LABS: Anion Gap 11.4; BUN Creatinine Ratio 8.6; Carbon Dioxide 29.3 mmol/L (21.0-32.0); Chloride 102 mmol/L (98-107); Estimated GFR (African America >60 (>=60); Estimated GFR (Non-African Ame >60 (>=60); Glucose 92 mg/dL (74-106); Potassium 3.7 mmol/L (3.5-5.1); Sodium 139 mmol/L (136-145)
== END 2023-06-13 12:05 | disposition home or self-care (01) ==
LOC: LAB 12:06
PROVIDERS: PCP Family Medicine; Visit Provider Internal Medicine Cardiovascular Disease
DX: Z01.818 Encounter for other preprocedural examination (principal); Z01.812 Encounter for preprocedural laboratory examination
CPT/HCPCS: 36415; 80048; 85025

== ENCOUNTER 2023-11-27 08:45 | Outpatient (OUT) | payer OTHER, SELFPAY ==
--- NOTE | 2023-11-27 08:47 | CT_ITS ---
The [address] [address] Patient Name: ALONA PATINO MRN: [id number] date: 1970 Sex: M Assigned Patient Location: CT Current Patient Location: Accession/Order Number: [id number] Exam Date: 11/27/2023 09:00 Report Date: 11/28/2023 06:47 At the request of: ARLETH ESPINO Procedure: CT chest wo con EXAMINATION: CT chest wo con HISTORY: Abnormal Findings On Lung Field R91.8 COMPARISON: CT chest 06/04/2023, 03/01/2023 TECHNIQUE: Axial, Coronal, and Sagittal images were created without the administration of IV contrast material. Dose reduction techniques were achieved by using automated exposure control and/or adjustment of mA and/or kV according to patient size and/or use of iterative reconstruction technique. FINDINGS: LUNGS: Emphysematous versus extensive bullous changes bilaterally. Mild bronchiectasis. Stable scattered patchy/nodular opacities. PLEURA: No mass, effusion, or pneumothorax. VASCULATURE: No abnormality. WILMAR: No mass or pathologic adenopathy. MEDIASTINUM: No mass or pathologic adenopathy. CARDIAC: No enlargement, pericardial thickening, or pericardial effusion. Coronary Artery calcifications: AORTA: No aneurysm or dissection. CHEST WALL: No mass or axillary adenopathy BONES: No bone lesion or fracture. LIMITED ABDOMEN: No suspicious findings. Limited images of the upper abdomen. OTHER: Negative. CT/CT chest wo con IMPRESSION: 1. Stable emphysematous/bullous changes. 2. Stable bronchiectasis. 3. Stable scattered patchy/nodular opacities; nonspecific. Additional follow-up in one year to document continued stability should be considered. Electronically authenticated by: DOT JOSEPH Date: 11/28/2023 06:47
--- OUTSIDE RECORDS SUMMARY | 2023-11-27 08:56 | XMS_ITS | CCD ---
Author Organization [facility] Care Team Providers Care Paper Sheeter Name Role Phone DR DOT JOSEPH Consulting [...] PCP Primary Care Unavailable Dr. Jorge Mace Referring Unav ailable Sykes, MsChoco Armijo Attending Unav ailable UNKNOWN, PCP Primary Care Unavailable Dr. Jorge Mace Attending Unav ailable Samsa, Dr. Arleth Miles Referring Unavailab le UNKNOWN, PCP Primary Care Unavailable Rodri, Dr. Jorge Dickinson Admitting Unav ailable Rodri, Dr. Jorge Dickinson Attending Unav ailable Unavailable Primary Care Provider UnavailGWEN Romero Attending Unavailable GWEN JONES Attending Unavailable OBED CARLOS Admitting Unavailable ALGOBED STUBBS Attending Unavailable ALGOBED STUBBS Referring Unavailable ALGOBED STUBBS Attending Unavailable ALGHOMILTON, OBED Attending Unavailable ALGHOMILTON, OBED Attending Unavailable ALGHOMILTON, OBED Attending Unavailable Medications Completed/Discontinued Medications Medication Drug Class(es) Dates Sig (Normalized) Sig (Original) [id number] 200 actuat albuterol 0.09 mg/actuat metered dose [...] [Anxiety state, unspecified] Onset: 09-06-2022 09-14-2022 Chronic Cardiac and circulatory congenital anomalies (2 sources) Malformation of coronary vessels; Translations: [Malformation of coronary vessels] Onset: 06-28-2023 Chronic Chronic obstructive pulmonary disease and bronchiectasis (9 sources) Centrilobular emphysema; Translations: [Chronic obstructive pulmonary disease, unspecified] Onset: 06-12-2022 Chronic Coronary atherosclerosis and other heart disease (3 sources) Atherosclerotic heart disease of [place] coronary artery without angina pectoris; Translations: [Unstable angina] Onset: 09-06-2022 Chronic Disorders of lipid metabolism [...] Onset: 07-14-2022 Chronic Other aftercare (1 source) detention (current) use of inhaled steroids; Translations: [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 USE OF INHALED STEROIDS] Onset: 07-14-2022 Episodic [...] 12-11-2022 Episodic Other aftercare (1 source) Other ocean transportation intermediary (current) drug therapy; Translations: [OTH 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 CURRENT DRUG THERAPY] Onset: 01-29-2022 Episodic Other [...] Test Name Value Interpretation Reference Range Facility Office Visiton 10-15-2023 Follow-up visit [id number] Alona Hodge 1970 M Date Provider Department Center 10/15/2023 [id number]-[id number] CARLOS DEANNA Estephanie Bassett Family History Problem Relation Age of Onset Heart attack Mother Heart attack Father Other Father's Brother Family Status - Relation Status Age at Mother Father Father's Brother Level of Service:[id number] MD OFFICE/OUTPATIENT ESTABLISHED LOW MDM 20 MIN Normal [facility] HPon 06-28-2023 HP Attestation signed by Obed Carlos MD at 06/28/2023 8:46 AM H and P reviewed. No significant changes. Patient presenting with unstable angina. Plan to proceed with cath. Procedure was explained to patient at length and in detail. Risks, benefits, and alternatives were discussed. Patient is informed that risks of this invasive procedure include, but are not limited to, bleeding, hematoma, kidney injury, CVA, arrythmia requiring defibrillation, need for emergent open heart surgery, and . Patient understands these risks and wishes to proceed. Obed Carlos MD History Of Present Illness 53 y.o. male With a past medical history [...] Unfortunately, these were both denied by insurance. Past Medical History He has a past medical history of Chest pain, COPD (chronic obstructive pulmonary disease) (CMS/HCC), Hyperlipidemia, and Lung mass. Surgical History He [...] Heart attack Father Other (pacemaker) Father's Brother Allergies Patient has no known allergies. Medications Medications Prior to Admission Medication Sig Dispense Refill Last Dose aspirin 81 mg EC tablet Take 81 mg by mouth in the morning. 06/27/2023 buPROPion XL (Wellbutrin XL) 150 mg 24 hr tablet Take 150 mg by mouth in the morning. 06/28/2023 citalopram (CeleXA) 20 mg tablet Take 30 mg by mouth in the morning. 06/28/2023 Incruse Ellipta 62.5 mcg/actuation inhalation INHALE 1 PUFF BY MOUTH ONCE DAILY 06/28/2023 levothyroxine (Synthroid, Levoxyl) 112 mcg tablet 1 (one) time each day at the same time. 06/28/2023 mometasone-formotero l (Dulera) 200-5 mcg/actuation inhaler Inhale 2 puffs in the morning and at bedtime. 06/28/2023 Mucus Relief ER 600 mg 12 hr tablet Take 600 mg by mouth in the morning and at bedtime. 06/28/2023 rosuvastatin (Crestor) 20 mg tablet Take 1 tablet (20 mg) by mouth in the morning. (Patient taking differently: Take 20 mg by mouth at bedtime.) 90 tablet 3 06/27/2023 Ventolin HFA 90 mcg/actuation inhaler Inhale 2 puffs every 4 (four) hours if needed. 06/28/2023 Review of Systems All other systems reviewed and are negative. Last Recorded Vitals Visit Vitals BP (!) 152/94 Pulse 62 Resp 18 Ht 1.702 m (5' 7 ) Wt 79.4 kg (175 lb) SpO2 98% BMI 27.41 kg/m??? Smoking Status Every Day BSA 1.94 m??? Physical Exam Constitutional: Appearance: Normal appearance. HENT: Head: Normocephalic. Right Ear: Tympanic membrane normal. Nose: Nose normal. Mouth/Throat: Mouth: Mucous membranes are moist. Eyes: Pupils: Pupils are equal, round, and reactive to light. Cardiovascular: Rate and Rhythm: Normal rate and regular rhythm. Pulses: Normal pulses. Pulmonary: Effort: Pulmonary effort is normal. Breath sounds: Normal breath sounds. Abdominal: Palpations: Abdomen is soft. Musculoskeletal: General: Normal range of motion. Cervical back: Normal range of motion. Skin: General: Skin is warm. Neurological: General: No focal deficit present. Mental Status: He is alert and oriented to person, place, and time. Psychiatric: Mood and Affect: Mood normal. Relevant Lab Results No results found for: NA , K , CL , CO2 , BUN , CREATININE , GLUCOSE , CALCIUM , ANIONGAP , EGFR , BCR Relevant Imaging Results Electrocardiogram, 12-lead Normal sinus rhythm Normal ECG No previous ECGs available Assessment/Plan -Patient is having chest pain that is concerning for angina. He is also having shortness of breath, concerning for anginal equivalent. Prudent to rule out ischemia. Patient will undergo LHC to evaluate for any CAD. Principal Problem: Angina pectoris, unstable (CMS/HCC) [facility] NURSNOTEon 06-28-[address] Booker, It is okay to discharge pt after 2 hour recovery time per protocol/policy at 1045. [facility] NURSNOTE RN educated pt on d/c instructions. RN encouraged pt to voice any questions or concerns. Pt verbalizes no questions or concerns at this time. Pt was wheeled off of unit with all of belongings. [facility] Office Visiton 05-25-2023 Follow-up visit [id number] Alona Hodge 1970 M Date Provider Department Center 05/25/2023 OBED HAYDEN Family History Problem Relation Age of Onset Heart attack Mother Heart attack Father Other Father's Brother Family Status - Relation Status Age at Mother Father Father's Brother Level of Service:[id number] MD OFFICE/OUTPATIENT ESTABLISHED LOW MDM 20 MIN Normal [facility] Orders Onlyon 05-25-2023 Orders Only [id number] Alona Hodge 1970 M Date Provider Department Center 05/25/2023 YOSEPH VICENTE Family History Problem Relation Age of Onset Heart attack Mother Heart attack Father Other Father's Brother Family Status - Relation Status Age at Mother Father Father's Brother Normal [facility] Office Visiton 01-29-2023 Follow-up visit [id number] Alona Hodge 1970 M Date Provider Department Center 01/29/2023 OBED HAYDEN Family History Problem Relation Age of Onset Heart attack Mother Heart attack Father Other Father's Brother Family Status - Relation Status Age at Mother Father Father's Brother Level of Service:10554 MD OFFICE/OUTPATIENT ESTABLISHED MOD MDM 30-39 MIN Normal [facility] Office Visiton 12-11-2022 Follow-up visit [id number] Alona Hodge 1970 M Date Provider Department Center 12/11/2022 OBED HAYDEN Family History Problem Relation Age of Onset Heart attack Mother Heart attack Father Other Father's Brother Family Status - Relation Status Age at Mother Father Father's Brother Level of Service:15689 MD OFFICE/OUTPATIENT NEW MODERATE MDM 45-59 MINUTES Normal [facility] AFB Culture/Smearon 10-26-19 23 Mycobacterium sp identified Org specific cx Nom (Unsp spec) NO MYCOBACTERIA ISOLATED. [facility] Mycobacterium sp identified Org specific cx Nom (Unsp spec)on 10-25-2022 Microscopic observation Acid fast stain Nom (Unsp spec) Negative [facility] Fungal Culture/Smearon 09-25 Fungus identified Cx Nom (Unsp spec) NO FUNGI ISOLATED. [facility] Fungus identified Cx Nom (Un sp spec)on 09-25-2022 Fungus identified Fungus stain Nom (Unsp spec) Negative [facility] CYTOLOGY NON-PRINCIPAL CLERK RESULTSon 0 09-12-2022 Pathology Report Patient Name ALONA HODGE Date of Procedure: 09/06/2022 Date Reported: 09/12/2022 Date Received: 09/06/2022 Date of / Sex 1970 (Age: 52) / M Race: UNKNOWN* Submitting Physician: JORGE MACE MD Attending Physician: ARLETH ESPINO DO Other External # FINAL CYTOLOGICAL INTERPRETATION A. [...] refer to concurrent biopsy surgical pathology report ([id number]). Steel Tier: Dr. Slava Mooney consulted on the GMS [...] RAMANA Cardoso. Slide(s) initially screened by a Msws at [place] [address] Electronically Signed Out By RUTHY BAEZ MD By the signature on this report, the individual or group listed as making the Final Interpretation/Diagn osis certifies that they have reviewed this case. Slide(s) initially screened by a Msws at [facility] Diagnostic interpretation performed at [facility] [address] [facility] [address] Rapid Evaluation Fine Needle Aspiration Immediate Read [...] - LEFT UPPER LOBE NODULE Pap stain Non-Tailman, Pap stain Non-Tailman, Diff-Quik stain Non-Tailman, Diff-Quik stain Non-Tailman, Diff-Quik stain Non-Tailman, CELL BLOCK, H&E, Initial, H GOMORI'S METHENAMINE SILVER, H ACID FAST BACILLI, ZIEHL-NEELSON, H RECUT H&E, H PAS-FUNGAL, H RECUT H&E B: BRONCHIAL TRIPLE NEEDLE BRUSH OF LEFT UPPER LOBE NODULE Pap stain Non-Tailman, Diff-Quik stain Non-Tailman, CELL BLOCK, H&E, Initial C: FINE NEEDLE ASPIRATION 4R LYMPH NODE Pap stain Non-Tailman, Diff-Quik stain Non-Tailman, CELL BLOCK, H&E, Initial D: FINE NEEDLE ASPIRATION 4L LYMPH NODE Pap stain Non-Tailman, Diff-Quik stain Non-Tailman, CELL BLOCK, H&E, Initial E: FINE NEEDLE ASPIRATION 7 LYMPH NODE Pap stain Non-Tailman, Diff-Quik stain Non-Tailman, CELL BLOCK, H&E, Initial F: FINE NEEDLE ASPIRATION 11L LYMPH NODE Pap stain Non-Tailman, Diff-Quik stain Non-Tailman, CELL BLOCK, H&E, Initial Gross Description A. [...] HAZY NEEDLE RINSE IN CYTOLYT WITH PARTICLES. [facility] Depa (more content not included)... [facility] SURGICAL PATHOLOGY RESULTSon 09-12-2022 Pathology Report [...] FIBRIN. SEE NOTE. --SEE CONCURRENT CYTOLOGY SPECIMEN [id number]. Note: Deeper levels were reviewed. The findings [...] reviewed this case. Diagnostic interpretation performed at [facility] [address] [place] [address] Clinical History: PIPER nodule Specimens Submitted As: A: PIPER NODULE TBBX Gross Description: Received in formalin, labeled with the patient s name and hospital number and PIPER nodule TBBX , are multiple minute pink-white, soft tissue fragments aggregating to 0.8 x 0.3 x 0.3 cm. The specimen is submitted in toto in one cassette. DMB dmb/09/06/2022 [facility] Department of Pathology [address] Bacteria identified Cx Nom ( Unsp spec)on 09-08-2022 Microscopic observation Gram stain Nom (Unsp spec) 1+ GRANULOCYTES. NO ORGANISMS SEEN. [facility] Tissue/Wound Culture/Smearon 09-08-2022 Bacteria identified Cx Nom (Unsp spec) NO GROWTH AEROBICALLY OR ANAEROBICALLY. [facility] AFB CULTURE/SM, MISCon 09-06 AFB CULTURE/SM, MISC PATIENT: ALONA HODGE LOCATION: [facility]#: [id number] : [birth year] AGE: SEX: M ORDERED BY: JORGE MACE SOURCE: BIOPSY COLLECTED: 09/06/22 17:00 ANTIBIOTICS AT PRICILA.: RECEIVED : 09/06/22 17:06 SITE: PIPER NODULE CORE R E S U L T S AFB SMEAR FINAL 09/07/22 13:05 ACID FAST SMEAR - NEGATIVE. AFB CULTURE/SM, MISC FINAL 10/25/22 14:36 NO MYCOBACTERIA ISOLATED. Normal [facility] Comment on above: Performed By: #### A [facility] #### [facility] [address] [address] [place] [address] Bronchoscopyon 09-06-2022 Jorge Mace MD - 09/11/2022 Patient Name: Alona Hodge Procedure Date: 09/06/2022 11:36 AM Date of : 1970 Room: Bronchoscopy Room 1 Attending MD: Jorge Mace MD, [id number] Procedure: Bronchoscopy Indications: Left upper lobe nodule Providers: Jorge Mace MD (Doctor), Michelle Borden RN (Nurse), Corinne Franco, Glycerin Operator (Glycerin Operator), Steven Mariscal MD (Fellow) Referring MD: Arleth [...] by the physician, the nurse and the purse seining hand in the procedure room at 11:36 AM. [...] no secretions. Electromagnetic navigation bronchoscopy utilizing the VoölksDimension system with iLogic upgrade was performed. The [...] sampling site was not visible endoscopically. The samplin (more content not included)... [facility] Work Phone: Bronchoscopy PATIENTNAME Patient Name: Alona Hodge EXAMDATE Procedure Date: 09/06/2022 11:36 AM PATIENTID PATIENTACCOUNTNUM PATIENTDOB Date of : 1970 PATIENTROOM Room: Bronchoscopy Room 1 PROVDR Attending MD: Jorge Mace MD, [id number] ENDOPROCEDURENAME Procedure: Bronchoscopy INDICATION Indications: Left upper lobe nodule PRIMARYPROVIDER Providers: Jorge Mace MD (Doctor), Michelle Borden RN (Nurse), Corinne Franco, Glycerin Operator (Glycerin Operator), Steven Mariscal MD (Fellow) EDREFPROVIDER Referring MD: [...] by the physician, the nurse and the purse seining hand in the procedure room at 11:36 AM. [...] no secretions. Electromagnetic navigation bronchoscopy utilizing the VoölksDimension system with iLogic upgrade was performed. The [...] fluoroscopy. Tr (more content not included)... Normal [facility] Radiology Study observation (narrative) [facility] Work Phone: BronchoscopyOrdered By: Romulo Mace on 09-06-2022 [facility] Work Phone: FUNGAL CULTURE/SM, MISCon FUNGAL CULTURE/SM, MISC PATIENT: ALONA HODGE LOCATION: [facility]#: [id number] : [birth year] AGE: SEX: M ORDERED BY: JORGE MACE SOURCE: BIOPSY COLLECTED: 09/06/22 17:00 ANTIBIOTICS AT PRICILA.: RECEIVED : 09/06/22 17:05 SITE: PIPER NODULE CORE R E S U L T S FUNGAL SMEAR FINAL 09/07/22 10:54 FLUORESCENT FUNGAL STAIN: NEGATIVE FUNGAL CULTURE/SM, MISC FINAL 09/25/22 11:16 NO FUNGI ISOLATED. Normal [facility] Comment on above: Performed By: #### F [facility] #### [facility] [address] [place] [address] MISCELLANEOUS CULT./SM.BACT. on 09-06-2022 MISCELLANEOUS CULT./SM.BACT. PATIENT: ALONA HODGE LOCATION: [facility]#: [id number] : [birth year] AGE: SEX: M ORDERED BY: JORGE MACE SOURCE: BIOPSY COLLECTED: 09/06/22 17:21 ANTIBIOTICS AT PRICILA.: RECEIVED : 09/06/22 17:21 SITE: PIPER NODULE CORE R E S U L T S GRAM STAIN FINAL 09/06/22 18:21 1+ GRANULOCYTES. NO ORGANISMS SEEN. MISCELLANEOUS CULT./SM.BACT. FINAL 09/08/22 08:50 NO GROWTH AEROBICALLY OR ANAEROBICALLY. Normal [facility] Comment on above: Performed By: #### M [facility] #### [facility] [address] [place] [address] No Panel Informationon 09-06 [email or web address]} [facility] Work Phone: [facility] Work Phone: CT CHEST without FOR HEATHER BRONC PLANNINGon 09-06-[address] CHEST without FOR HEATHER BRONC PLANNING Patient Name: ALONA HODGE STUDY: TH CT CHEST WITHOUT FOR HEATHER BRONC PLANNING; 09/06/2022 10:35 am INDICATION: Lung Nodule R91.1: Lung nodule. COMPARISON: None. ACCESSION NUMBER(S): [id number] ORDERING CLINICIAN: JORGE MACE TECHNIQUE: Helical data [...] Electronically signed by: KATYA JOHNSON MD Normal [facility] Cytologyon 09-06-2022 [facility] Cytology Patient Name ALONA HODGE Date of Procedure: 09/06/2022 Date Reported: 09/12/2022 Date Received: 09/06/2022 Date of / Sex 1970 (Age: 52) / M Race: UNKNOWN* Submitting Physician: JORGE MACE MD Attending Physician: ARLETH ESPINO DO Other External # FINAL CYTOLOGICAL INTERPRETATION A. [...] refer to concurrent biopsy surgical pathology report ([id number]). Steel Tier: Dr. Slava Mooney consulted on the GMS [...] RAMANA Cardoso. Slide(s) initially screened by a Msws at [place] [address] Electronically Signed Out By RUTHY BAEZ MD By the signature on this report, the individual or group listed as making the Final Interpretation/Diagn osis certifies that they have reviewed this case. Slide(s) initially screened by a Msws at [facility] Diagnostic interpretation performed at [facility] [address] [facility] [address] Rapid Evaluation Fine Needle Aspiration Immediate Read [...] - LEFT UPPER LOBE NODULE Pap stain Non-Tailman, Pap stain Non-Tailman, Diff-Quik stain Non-Tailman, Diff-Quik stain Non-Tailman, Diff-Quik stain Non-Tailman, CELL BLOCK, H AND E, Initial, H GOMORI'S METHENAMINE SILVER, H ACID FAST BACILLI, ZIEHL-NEELSON, H RECUT H AND E, H PAS-FUNGAL, H RECUT H AND E B: BRONCHIAL TRIPLE NEEDLE BRUSH OF LEFT UPPER LOBE NODULE Pap stain Non-Tailman, Diff-Quik stain Non-Tailman, CELL BLOCK, H AND E, Initial C: FINE NEEDLE ASPIRATION 4R LYMPH NODE Pap stain Non-Tailman, Diff-Quik stain Non-Tailman, CELL BLOCK, H AND E, Initial D: FINE NEEDLE ASPIRATION 4L LYMPH NODE Pap stain Non-Tailman, Diff-Quik stain Non-Tailman, CELL BLOCK, H AND E, Initial E: FINE NEEDLE ASPIRATION 7 LYMPH NODE Pap stain Non-Tailman, Diff-Quik stain Non-Tailman, CELL BLOCK, H AND E, Initial F: FINE NEEDLE ASPIRATION 11L LYMPH NODE Pap stain Non-Tailman, Diff-Quik stain Non-Tailman, CELL BLOCK, H AND E, Initial Gross [...] HAZY NEEDLE RINSE IN CYTOLYT WITH PARTICLES. [facility] Department of Patholo (more content not included)... Normal [facility] Comment on above: Performed By: #### C #### [facility] Cytology [address] [facility] [address] [facility] Surgical Pathology Depar tmenton 09-06-2022 [facility] Surgical Pathology Department Name ALONA HODGE Pathologist: [...] FIBRIN. SEE NOTE. --SEE CONCURRENT CYTOLOGY SPECIMEN [id number]. Note: Deeper levels were reviewed. The findings [...] reviewed this case. Diagnostic interpretation performed at [facility] [address] [place] [address]. [place] [id number] Clinical History: PIPER nodule Specimens Submitted As: A: PIPER NODULE TBBX Gross Description: Received in formalin, labeled with the patient?s name and hospital number and PIPER nodule TBBX , are multiple minute pink-white, soft tissue fragments aggregating to 0.8 x 0.3 x 0.3 cm. The specimen is submitted in toto in one cassette. DMB dmb/09/06/2022 [facility] Department of Pathology [address] [place] [address] Normal [facility] Comment on above: Performed By: #### U [facility] #### [facility] Surgical Pathology Department [address] [place], [place] [id number] Initial Visit (Pulmonary Med icine)on 08-24-2022 Initial [...] pulmonary disease); ZACHARY = N; Record Start: Levothyroxine Sodium Powder; USE DIRECTED Rx By: Jennifer Sykes; Dispense: 0 Days ; #:1 Gram; Refill: 0;For: Hypothyroidism; ZACHARY = N; Record Patient Discussion/Summary Patient's visit was converted to a telephone visit given current COVID- 19 pandemic. Mr. Hodge is a 52 year old male (former [id number] pack years ) here for initial evaluation [...] for visiting the Pulmonary clinic today! Jennifer Sykes [employer] History of Present Illness Patient's visit was converted to a telephone visit given current COVID- 19 pandemic. Mr. Hodge is a 52 year old male (former pack years ) here for initial evaluation [...] History: Mom - COPD/ CVA Father - [place] Brother - esophageal cancer/ liver cancer/ blood [...] with patient/family/careg (more content not included)... Normal [facility] CT SKULL BASE MID THIGHo n [...] by: NAIF TITUS Date: 2022-07-31 08:54 Normal [facility] FUNGAL CULTUREon 07-13-2022 Fungus Stain Final report Normal [facility] Comment on above: Performed By: #### C XFUN #### [facility] [address] [place] [address] Dr. Hamida Mendez Performed By: #### H ISTDID #### [facility] [address] [place] [address] Dr. Hamida Mendez Result 1 Comment Normal [facility] Comment on above: Result Comment: CHIQUITA/ Calcofluor preparation: no fungus observed. Performed By: #### C XFUN #### [facility] [address] [place] [address] Dr. Hamida Mendez Performed By: #### H ISTDID #### [facility] [address] [place] [address] Dr. Hamida Mendez ACID FAST SMEAR AND CXon Acid Fast Smear Negative Normal [facility] Comment on above: Performed By: #### C [facility] #### [facility] [address] [place] [address] Dr. Hamida Mendez AFB Specimen Processing Concentration Normal [facility] Comment on above: Performed By: #### C [facility]DTBH #### [facility] [address] [place] [address] Dr. Hamida Mendez CULTURE OTHERon 07-10-2022 CULTURE OTHER Culture Observations: NO GROWTH AT 48 HOURS. Normal [facility] Comment on above: Performed By: #### C VDTBH #### [facility] [address] [place] [address] Dr. Hamida Mendez CYTOLOGYon 07-10-2022 SENT TO REF LAB 07/10/2022 Normal [facility] Comment on above: Performed By: #### C VDTBH #### [facility] [address] [place] [address] Dr. Hamida Mendez GRAM STAINon 07-10-2022 COMMENTS NO ORGANISMS OBSERVED [place] Comment on above: Performed By: #### C CPAB #### [facility] [address] [place] [address] Dr. Hamida Mendez DIPHTHEROIDS Normal [facility] Comment on above: Performed By: #### C CPAB #### [facility] [address] [place] [address] [address] Hamida Mendez EPITHELIALS Normal [facility] Comment on above: Performed By: #### C CPAB #### [facility] [address] [place] [address] [address] Hamida Mendez FUNGAL ELEMENTS Normal [facility] Comment on above: Performed By: #### C CPAB #### [facility] [address] [place] [address] [address] Hamida Mendez GRAM NEG BACILLI Normal [facility] Comment on above: Performed By: #### C CPAB #### [facility] [address] [place] [address] [address] Hamida SCHMITT NEG DIPPLOCOCCI Normal [facility] Comment on above: Performed By: #### C CPAB #### [facility] [address] [place] [address] [address] Hamida Mendez GRAM POS BACILLI Normal [facility] Comment on above: Performed By: #### C CPAB #### [facility] [address] [place] [address] [address] Hamida Mendez GRAM POSITIVE COCCI Normal [facility] Comment on above: Performed By: #### C CPAB #### [facility] [address] [place] [address] [address] Hamida Mendez GRAM STAIN SOURCE Lt Upper Lobe Lavage Normal [facility] Comment on above: Performed By: #### C CPAB #### [facility] [address] [place] [address] [address] Hamida Mendez GS_DIPTH Normal [facility] Comment on above: Performed By: #### C CPAB #### [facility] [address] [address] [address] Hamida Mendez WBC NONE SEEN Normal [facility] Comment on above: Performed By: #### C CPAB #### [facility] [address] [place] [address] Dr. Hamida Mendez XR CHEST 1 Von [...] Date: 2022-07-10 08:41 Normal [facility] Covid-19 PCR ([facility])on 06-18 SARS-CoV-2 (COVID-19) RNA DORA+probe Ql (Unsp spec) Not detected Normal NOT DETECTED [facility] Comment on above: Result Comment: This test is not yet approved or cleared by the [place] FDA. When there are no FDA-approved or cleared tests available, and other criteria are met, FDA can make tests available under an emergency access mechanism called an Emergency Use Authorization (EUA). The EUA for this test is supported by the [employer] of Health and Human Service's (HHS's) declaration [...] consistent with SARS-CoV-2. Performed By: #### C VDTB #### [facility] [address] [place] [address] Dr. Hamida Mendez COCCIDIODES IGG/IGM AB BY IF Aon 06-29-2022 Coccidiodes Ab, IgG EIA 0.6 EIA Units Normal [facility] Comment on above: Result Comment: Nega tive <1.0 Indeterminate 1.0-1.4 Positive >1.4 Performed By: #### C VDTBH #### [facility] [address] [place] [address] Dr. Hamida Mendez Coccidiodes Ab, IgM, EIA 0.2 EIA Units Normal [facility] Comment on above: Result Comment: Nega tive <1.0 Indeterminate 1.0-1.4 Positive >1.4 Performed By: #### C VDTBH #### [facility] [address] [place] [address] Dr. Hamida Mendez HISTOPLASMA GALACTOMANNAN AG URINEon 06-27-2022 Histoplasma Gal'jp Ag <0.5 Normal <0.5 ng/mL [facility] Comment on above: Performed By: #### C CPAB #### [facility] [address] [place] [address] Dr. Hamida Mendez FUNGAL AB QUANTITAIVE DOUBLE IMMUNODIFFUon 06-25-2022 Aspergillus flavus Negative Normal Neg:<1:1 [facility] Comment on above: Performed By: #### C CPAB #### [facility] [address] [place] [address] Dr. Hamida Mendez Aspergillus fumigatus Negative Normal Neg:<1:1 [facility] Comment on above: Performed By: #### C CPAB #### [facility] [address] [place] [address] Dr. Hamida Mendez Aspergillus niger Negative Normal Neg:<1:1 [facility] Comment on above: Performed By: #### C CPAB #### [facility] [address] [place] [address] Dr. Hamida Mendez Blastomyces Negative Normal Neg:<1:1 [facility] Comment on above: Performed By: #### C CPAB #### [facility] [address] [place] [address] Dr. Hamida Mendez HISTOPLASMA CAP AB QUANT DID on 06-24-2022 Histoplasma Mycelial CF Ab. Negative Normal Neg:<1:2 [facility] Comment on above: Performed By: #### H ISTDID #### [facility] [address] [place] [address] Dr. Hamida Mendez Histoplasma Yeast CF Ab Negative Normal Neg:<1:2 [facility] Comment on above: Performed By: #### H ISTDICorine #### [facility] [address] [place] [address] Dr. Hamida Mendez QUANTIFERON TB GOLD PLUSon 0 06-24-2022 QuantiFERON Criteria Comment [place] Comment on above: Result Comment: Oren tiFERON-TB [...] By: #### Q NTTB #### [facility] [address] [place] [address] Dr. Hamida Mendez QuantiFERON Incubation Incubation performed. Normal [facility] Comment on above: Performed By: #### Q NTTB #### [facility] [address] [place] [address] Dr. Hamida Mendez QuantiFERON Mitogen Value >10.00 Normal [facility] Comment on above: Performed By: #### Q NTTB #### [facility] [address] [place] [address] Dr. Hamida Mendez QuantiFERON Nil Value 0.03 IU/mL [place] Comment on above: Performed By: #### Q NTTB #### [facility] [address] [place] [address] Dr. Hamida Mendez QuantiFERON TB1 Ag Value 0.05 IU/mL [place] Comment on above: Performed By: #### Q NTTB #### [facility] [address] [place] [address] Dr. Hamida Mendez QuantiFERON TB2 Ag Value 0.04 IU/mL Normal [facility] Comment on above: Performed By: #### Q NTTB #### [facility] [address] [place] [address] Dr. Hamida Mendez QuantiFERON-TB Gold Plus Negative Normal Negative [facility] Comment on above: Result Comment: No r esponse to M tuberculosis antigens detected. Infection with M tuberculosis is unlikely, but high risk individuals should be considered for additional testing (ATS/IDSA/CDC Clinical Practice Guidelines, 2017). The reference range is an Antigen minus Nil result of <0.35 IU/mL. Chemiluminescence immunoassay methodology Performed By: #### Q NTTB #### [facility] [address] [place] [address] Dr. Hamida Mendez ANGIOTENSION-CONVERTING ENZY ME (ANTOINETTE)on 06-23-2022 ANTOINETTE 45 U/L Normal 14-82 [facility] Comment on above: Performed By: #### C CPAB #### [facility] [address] [place] [address] Dr. Hamida Mendez ANTI NEUTROPHIL CYTOPLASMIC AB (ANCA) PRon 06-23-2022 Anti-MPO Antibodies <0.2 Normal 0.0-0.9 [facility] Comment on above: Result Comment: Perf ormed at: BN Performed By: #### A NCAP #### [facility] [address] [place] [address] Dr. Hamida Mendez Anti-PR3 Antibodies <0.2 Normal 0.0-0.9 [facility] Comment on above: Result Comment: Perf ormed at: BN Performed By: #### A NCAP #### [facility] [address] [place] [address] Dr. Hamida Mendez Atypical pANCA <1:20 Normal Neg:<1:20 [facility] Comment on above: Result Comment: The atypical pANCA pattern has been observed in a significant percentage of patients with ulcerative colitis, primary sclerosing cholangitis and autoimmune hepatitis. Performed at: CB Performed By: #### A NCAP #### [facility] [address] [place] [address] Dr. Hamida Mendez Cytoplasmic (C-ANCA) <1:20 Normal Neg:<1:20 [facility] Comment on above: Result Comment: Perf ormed at: CB Performed By: #### A NCAP #### [facility] [address] [place] [address] Dr. Hamida Mendez Perinuclear (P-ANCA) <1:20 Normal Neg:<1:20 [facility] Comment on above: Result Comment: The presence of positive fluorescence exhibiting P-ANCA or C-ANCA patterns alone is not specific for the diagnosis of John's Granulomatosis (WG) or microscopic polyangiitis. Decisions about treatment should not be based solely on ANCA IFA results. The International ANCA Group Consensus recommends follow up testing of positive sera with both MD-3 and MPO-ANCA enzyme immunoassays. As many as 5% serum samples are positive only by EIA. Ref. AM J Clin Pathol 1999;111:507-513. Performed at: CB Performed By: #### A NCAP #### [facility] [address] [place] [address] Dr. Hamida Mendez ANTISCLERODERMA ABon 023 Antiscleroderma-70 Antibodies <0.2 Normal 0.0-0.9 [facility] Comment on above: Performed By: #### C CPAB #### [facility] [address] [place] [address] Dr. Hamida Mendez CYCLIC CITRULLINATED PEPTIDE AB (CCP)on 06-23-2022 CCP Antibodies IgG/IgA 5 units Normal 0-19 [facility] Comment on above: Result Comment: Nega tive <20 Weak positive 20 - 39 Moderate positive 40 - 59 Strong positive >59 Performed By: #### C CPAB #### [facility] [address] [place] [address] Dr. Hamida Mendez RHEUMATOID FACTORon 06-24-19 23 RA Latex Turbid. <10.0 Normal <14.0 [facility] Comment on above: Performed By: #### C CPAB #### [facility] [address] [place] [address] Dr. Hamida Mendez SED RATE WESTERGRENon 2022 SED RATE 47 mm/hr Critically high <=20 [facility] Comment on above: Performed By: #### C VDTBH #### [facility] [address] [place] [address] LUNG CANCER SCREENINGon [...] Date: 2022-06-21 15:09 Normal [facility] HEMOGLOBINon 06-12-2022 Hemoglobin (Bld) [Mass/Vol] 14.4 g/dL Normal 14.0-18.0 [facility] Comment on above: Performed By: #### [facility] #### [facility] [address] [place] [address] Dr. Hamida Mendez CBC AUTO DIFFon 01-24-2022 BASO # 0.0 103/ul Normal 0.0-0.1 [facility] Comment on above: Performed By: #### H ISTDID #### [facility] [address] [place] [address] Dr. Hamida Mendez Basophils/100 WBC (Bld) 0.0 % Critically low 0.2-2.0 [facility] Comment on above: Performed By: #### H ISTDID #### [facility] [address] [place] [address] Dr. Hamida Mendez EO # 0.4 103/ul Normal 0.0-0.7 [facility] Comment on above: Performed By: #### H ISTDID #### [facility] [address] [place] [address] Dr. Hamida Mendez Eosinophils/100 WBC (Bld) 7.2 % Critically high 0.9-7.0 [facility] Comment on above: Performed By: #### H ISTDID #### [facility] [address] [place] [address] Dr. Hamida Mendez Erythrocyte distribution width (RBC) [Ratio] 13.1 % Normal 11.0-15.0 [facility] Comment on above: Performed By: #### H ISTDID #### [facility] [address] [place] [address] Dr. Hamida Mendez Hematocrit (Bld) [Volume fraction] 46.9 % Normal 42.0-54.0 [facility] Comment on above: Performed By: #### H ISTDID #### [facility] [address] [place] [address] Dr. Hamida Mendez Hemoglobin (Bld) [Mass/Vol] 15.4 g/dL Normal 14.0-18.0 [facility] Comment on above: Performed By: #### H ISTDID #### [facility] [address] [place] [address] Dr. Hamida Mendez IG # 0.01 10e3/ul Normal 0.00-0.03 [facility] Comment on above: Performed By: #### H ISTDID #### [facility] [address] [address] [address] Hamida Mendez IG % 0.2 % Normal 0.0-0.5 [facility] Comment on above: Performed By: #### H ISTDID #### [facility] [address] [address] [address] Hamida Mendez LYMPH # 1.5 103/ul Normal 1.2-3.8 [facility] Comment on above: Performed By: #### H ISTDID #### [facility] [address] [address] [address] Hamida Mendez Lymphocytes/100 WBC (Bld) 27.5 % Normal 20.5-60.0 [facility] Comment on above: Performed By: #### H ISTDID #### [facility] [address] [place] [address] Dr. Hamida Mendez MANUAL DIFF REQ NO Normal [facility] Comment on above: Performed By: #### H ISTDID #### [facility] [address] [place] [address] Dr. Hamida Mendez MCH (RBC) [Entitic mass] 30.9 pg Normal 25.9-34.0 [facility] Comment on above: Performed By: #### H ISTDID #### [facility] [address] [place] [address] Dr. Hamida Mendez MCHC (RBC) [Mass/Vol] 32.8 g/dL Normal 29.9-35.2 [facility] Comment on above: Performed By: #### H ISTDID #### [facility] [address] [place] [address] Dr. Hamida Mendez MCV (RBC) [Entitic vol] 94.2 fL Critically high 80.0-94 .0 [facility] Comment on above: Performed By: #### H ISTDID #### [facility] [address] [place] [address] Dr. Hamida Mendez MONO # 0.4 103/ul Normal 0.3-0.8 [facility] Comment on above: Performed By: #### H ISTDID #### [facility] [address] [address] [address] Hamida Mendez Monocytes/100 WBC (Bld) 7.2 % Normal 1.7-12.[address] [facility] Comment on above: Performed By: #### H ISTDID #### [facility] [address] [address] [address] Hamida Mendez NEUT # 3.2 103/ul Normal 1.4-6.5 [facility] Comment on above: Performed By: #### H ISTDID #### [facility] [address] [place] [address] Dr. Hamida Mendez Neutrophils/100 WBC (Bld) 57.9 % Normal 43.0-75.0 [facility] Comment on above: Performed By: #### H ISTDID #### [facility] [address] [place] [address] Dr. Hamida Mendez Platelet mean volume (Bld) [Entitic vol] 8.8 fL Critically low 9.5-13.5 [facility] Comment on above: Performed By: #### H ISTDID #### [facility] [address] [place] [address] Dr. Hamida Mendez PLT 261 103/ul Normal 150-450 [facility] Comment on above: Performed By: #### H ISTDID #### [facility] [address] [place] [address] Dr. Hamida Mendez RBC 4.98 106/ul Normal 4.70-6.10 [facility] Comment on above: Performed By: #### H ISTDID #### [facility] [address] [place] [address] Dr. Hamida Mendez WBC 5.6 103/ul Normal 4.0-11.0 [facility] Comment on above: Performed By: #### H ISTDID #### [facility] [address] [place] [address] Dr. Hamida Mendez FREE T3on 01-24-2022 FREE T3 2.19 pg/mlL Normal 2.18-3.98 [facility] Comment on above: Performed By: #### C VDTBH #### [facility] [address] [address] [address] Hamida Mendez FREE T4on 01-24-2022 Free T4 [Mass/Vol] 1.13 ng/dL Normal 0.76-1.46 [facility] Comment on above: Performed By: #### C CPAB #### [facility] [address] [address] [address] Hamida Mendez GLYCOHEMOGLOBIN A1Con 2021 ADA RECOMMENDATION SEE BELOW Normal [facility] Comment on above: Result Comment: ADA RECOMMENDED LIMIT 4.0 - 6.0 ADA THERAPEUTIC TARGET < 7.0 ACTION SUGGESTED > 7.0 Performed By: #### C CPAB #### [facility] [address] [place] [address] Dr. Hamida Mendez Glucose [Mass/Vol] 105 mg/dL Normal [facility] Comment on above: Performed By: #### C CPAB #### [facility] [address] [address] [address] Hamida Mendez HbA1c (Bld) [Mass fraction] 5.3 % Normal 4.5-6.2 [facility] Comment on above: Performed By: #### C CPAB #### [facility] [address] [place] [address] Dr. Hamida Mendez LIPID PROFILEon 01-24-2022 CHOL-HDL RATIO NORM SEE BELOW Normal [facility] Comment on above: Result Comment: 3.3 - 4.4 LOW RISK 4.4 - 7.1 AVERAGE RISK 7.1 - 11.0 MODERATE RISK >11.0 HIGH RISK Performed By: #### B MP, TSH, LIVER, LIPID, FT3 #### [facility] [address] [address] [address] Hamida Mendez Cholesterol [Mass/Vol] 211 mg/dL Critically high <=200 [facility] Comment on above: Performed By: #### B MP, TSH, LIVER, LIPID, FT3 #### [facility] [address] [address] [address] Hamida Mendez Cholesterol in HDL [Mass/Vol] 69 mg/dL Critically high 40-60 [facility] Comment on above: Performed By: #### B MP, TSH, LIVER, LIPID, FT3 #### [facility] [address] [address] [address] Hamida Mendez Cholesterol in LDL [Mass/Vol] 126.2 mg/dL Normal [facility] Comment on above: Performed By: #### B MP, TSH, LIVER, LIPID, FT3 #### [facility] [address] [place] [address] Dr. Hamida Mendez Cholesterol.total/Christy sterol in HDL [Mass ratio] 3.1 {ratio} Normal [facility] Comment on above: Performed By: #### B MP, TSH, LIVER, LIPID, FT3 #### [facility] [address] [place] [address] Dr. Hamida Mendez HDL NORMAL > or = 60 mg/dl - LOW CARDIOVASCULAR RISK <40 mg/dl - HIGH CARDIOVASCULAR RISK Normal [facility] Comment on above: Performed By: #### B MP, TSH, LIVER, LIPID, FT3 #### [facility] [address] [place] [address] Dr. Hamida Mendez LDL CALC NORMAL SEE BELOW Normal [facility] Comment on above: Result Comment: <100 mg/dl OPTIMAL 100 - 129 mg/dl NEAR OR ABOVE OPTIMAL 130 - 159 mg/dl BORDERLINE HIGH 160 - 189 mg/dl HIGH >190 mg/dl VERY HIGH Performed By: #### B MP, TSH, LIVER, LIPID, FT3 #### [facility] [address] [place] [address] Dr. Hamida Mendez Triglyceride [Mass/Vol] 79 mg/dL Normal <=150 T [facility] Comment on above: Performed By: #### B MP, TSH, LIVER, LIPID, FT3 #### [facility] [address] [place] [address] Dr. Hamida Mendez VLDL CALC 15.8 mg/dL Normal [facility] Comment on above: Performed By: #### B MP, TSH, LIVER, LIPID, FT3 #### [facility] [address] [place] [address] Dr. Hamida Mendez LIVER PROFILEon 11-08-2022 Albumin [Mass/Vol] 3.4 g/dL Normal 3.4-5.0 [facility] Comment on above: Performed By: #### B MP, TSH, LIVER, LIPID, FT3 #### [facility] [address] [address] [address] Hamida Mendez Albumin/Globulin [Mass ratio] 0.8 {ratio} Normal [facility] Comment on above: Performed By: #### B MP, TSH, LIVER, LIPID, FT3 #### [facility] [address] [address] [address] Hamida Mendez ALP [Catalytic activity/Vol] 83 U/L Normal 46-116 [facility] Comment on above: Performed By: #### B MP, TSH, LIVER, LIPID, FT3 #### [facility] [address] [place] [address] Dr. Hamida Mendez ALT [Catalytic activity/Vol] 14 U/L Critically low 16-63 [facility] Comment on above: Performed By: #### B MP, TSH, LIVER, LIPID, FT3 #### [facility] [address] [place] [address] Dr. Hamida Mendez AST [Catalytic activity/Vol] 12 U/L Critically low 15-37 [facility] Comment on above: Performed By: #### B MP, TSH, LIVER, LIPID, FT3 #### [facility] [address] [place] [address] Dr. Hamida Mendez BILI, CONJUGATED 0.1 mg/dL Normal 0.0-0.2 [facility] Comment on above: Performed By: #### B MP, TSH, LIVER, LIPID, FT3 #### [facility] [address] [place] [address] Dr. Hamida Mendez Bilirubin [Mass/Vol] 0.4 mg/dL Normal 0.2-1.0 [facility] Comment on above: Performed By: #### B MP, TSH, LIVER, LIPID, FT3 #### [facility] [address] [place] [address] Dr. Hamida Mendez Globulin (S) [Mass/Vol] 4.2 g/dL Normal T he [facility] Comment on above: Performed By: #### B MP, TSH, LIVER, LIPID, FT3 #### [facility] [address] [place] [address] Dr. Hamida Mendez Protein [Mass/Vol] 7.6 g/dL Normal 6.4-8.2 [facility] Comment on above: Performed By: #### B MP, TSH, LIVER, LIPID, FT3 #### [facility] [address] [place] [address] Dr. Hamida Mendez PROF CHEM 8 (BAS METB)on Anion gap [Moles/Vol] 4.7 mmol/L Normal [facility] Comment on above: Performed By: #### B MP, TSH, LIVER, LIPID, FT3 #### [facility] [address] [place] [address] Dr. Hamida Mendez Calcium [Mass/Vol] 9.1 mg/dL Normal 8.5-10.1 [facility] Comment on above: Performed By: #### B MP, TSH, LIVER, LIPID, FT3 #### [facility] [address] [place] [address] Dr. Hamida Mendez Chloride [Moles/Vol] 101 mmol/L Normal 98-107 [facility] Comment on above: Performed By: #### B MP, TSH, LIVER, LIPID, FT3 #### [facility] [address] [place] [address] Dr. Hamida Mendez CO2 [Moles/Vol] 33.4 mmol/L Critically high 21.0-32.0 [facility] Comment on above: Performed By: #### B MP, TSH, LIVER, LIPID, FT3 #### [facility] [address] [place] [address] Dr. Hamida Mendez Creatinine [Mass/Vol] 0.87 mg/dL Normal 0.70-1.30 [facility] Comment on above: Performed By: #### B MP, TSH, LIVER, LIPID, FT3 #### [facility] [address] [place] [address] Dr. Hamida Mendez EGFR-AF POLISH >60 Normal >=60 [facility] Comment on above: Performed By: #### B MP, TSH, LIVER, LIPID, FT3 #### [facility] [address] [address] [address] Hamida Mendez EGFR-NON AF POLISH >60 Normal >=60 [facility] Comment on above: Performed By: #### B MP, TSH, LIVER, LIPID, FT3 #### [facility] [address] [address] [address] Hamida Mendez Glucose [Mass/Vol] 101 mg/dL Normal 74-106 [facility] Comment on above: Performed By: #### B MP, TSH, LIVER, LIPID, FT3 #### [facility] [address] [place] [address] Dr. Hamida Mendez Potassium [Moles/Vol] 4.1 mmol/L Normal 3.5-5.1 [facility] Comment on above: Performed By: #### B MP, TSH, LIVER, LIPID, FT3 #### [facility] [address] [place] [address] Dr. Hamida Mendez Sodium [Moles/Vol] 135 mmol/L Critically low 136-145 Th [facility] Comment on above: Performed By: #### B MP, TSH, LIVER, LIPID, FT3 #### [facility] [address] [place] [address] Dr. Hamida Mednez Urea nitrogen [Mass/Vol] 9.0 mg/dL Normal 7.0-18.0 [facility] Comment on above: Performed By: #### B MP, TSH, LIVER, LIPID, FT3 #### [facility] [address] [place] [address] Dr. Hamida Mendez Urea nitrogen/Creatinine [Mass ratio] 10.3 mg/mg Normal [facility] Comment on above: Performed By: #### B MP, TSH, LIVER, LIPID, FT3 #### [facility] [address] [place] [address] Dr. Hamida Mendez TSHon 01-24-2022 TSH 0.960 uIU/mL Normal 0.358-3.740 [facility] Comment on above: Performed By: #### B MP, TSH, LIVER, LIPID, FT3 #### [facility] [address] [address] [address] Hamida Mendez VITAMIN D 25 OHon 01-24-2022 VIT D 25-OH 25.6 ng/mL Normal [facility] Comment on above: Performed By: #### C CPAB #### [facility] [address] [address] [address] Hamida Mendez VIT D RANGES SEE BELOW Normal [facility] Comment on above: Result Comment: <20 ng/mL Vit D deficient 20 - <30 ng/mL Vit D insufficient 30 - 100 ng/mL Vit D sufficient >100 ng/mL Potential Toxicity Performed By: #### C CPAB #### [facility] [address] [address] [address] Hamida Mendez Physician Referralon 022 Physician Referral [phone] [id number] Normal [facility] A1C with Estimated Average G [facility] 03-23-2021 Glucose [Mass/Vol] 111 mg/dL Normal [facility] Comment on above: Order Comment: Reaso n for Exam Hypothyroidism, unspecified type Reason for Exam Hyperlipidemia, unspecified Result Comment: PERF ORMED BY: [place] [id number] PATHOLOGIST DEVELOPMENT ADVISOR CHANDRAKANT ZARCO M.D. Performed By: #### C MP, LIPID, THYROID SC, SCAN CBC #### [facility] [address] [place] [address] HbA1c (Bld) [Mass fraction] 5.5 % Normal 4.3-5.6 [facility] Comment on above: Order Comment: Reaso n for Exam Hypothyroidism, unspecified type Reason for Exam Hyperlipidemia, unspecified Result Comment: Incr eased risk for diabetes: 5.7 - 6.4 diabetes: >6.4 glycemic control for adults with diabetes: <7.0 Performed By: #### C MP, LIPID, THYROID SC, SCAN CBC #### [facility] [address] [id number] [facility] COVID-19 Antigenon 1 COVID-19 Antigen Healthcare Worker?: [...] its performance Baudilio Disclaimer characteristic determined by [employer] and Baudilio Disclaimer validated at [facility]. This Baudilio Disclaimer test has not been [...] Emergency Use Authorization for Coronavirus Baudilio Disclaimer is during the Public Health Emergency) Baudilio Disclaimer [...] is terminated or revoked sooner. PERFORMED BY: [place] [id number] PATHOLOGIST DEVELOPMENT ADVISOR CHANDRAKANT ZARCO M.D. Normal [facility] Comment on above: Performed By: #### C OVID-19 BAUDILIO, SOFIANEG #### [facility] [address] [place] [address] Baudilio Ag Negativeon 12-14-19 Baudilio Ag Negative Negative Normal Negative [facility] Comment on above: Result Comment: This is a duplicate Baudilio SARS Antigen (LYDIA) result to be used for statistical tracking purpose only. PERFORMED BY: [place] [id number] PATHOLOGIST DEVELOPMENT ADVISOR CHANDRAKANT ZARCO M.D. Performed By: #### C OVID-19 BAUDILIO, SOFIANEG #### [facility] [address] [place] [address] Complete Blood Count Auto Di ffon 12-07-2020 Basophils (Bld) [#/Vol] 0.0 10*3/uL Normal 0.0-0.2 [facility] Comment on above: Order Comment: Reaso n for Exam Tobacco use;Dyslipidemia;Encounter for screening for maligna Result Comment: PERF ORMED BY: [place] [id number] PATHOLOGIST DEVELOPMENT ADVISOR CHANDRAKANT ZARCO M.D. Performed By: #### L IPID, TSH3 wRFLX, CMP, CBC #### [facility] [address] [place] [address] Basophils/100 WBC (Bld) 0.5 % Normal . [facility] Comment on above: Order Comment: Reaso n for Exam Tobacco use;Dyslipidemia;Encounter for screening for maligna Performed By: #### L IPID, TSH3 wRFLX, CMP, CBC #### [facility] [address] [place] [address] Eosinophils (Bld) [#/Vol] 0.4 10*3/uL Normal 0.0-0.45 [facility] Comment on above: Order Comment: Reaso n for Exam Tobacco use;Dyslipidemia;Encounter for screening for maligna Performed By: #### L IPID, TSH3 wRFLX, CMP, CBC #### [facility] [address] [place] [address] [place] Eosinophils/100 WBC (Bld) 5.0 % Normal . [facility] Comment on above: Order Comment: Reaso n for Exam Tobacco use;Dyslipidemia;Encounter for screening for maligna Performed By: #### L IPID, TSH3 wRFLX, CMP, CBC #### [facility] [address] [place] [address] Erythrocyte distribution width (RBC) [Ratio] 13.7 % Normal 12.0-14.8 [facility] Comment on above: Order Comment: Reaso n for Exam Tobacco use;Dyslipidemia;Encounter for screening for maligna Performed By: #### L IPID, TSH3 wRFLX, CMP, CBC #### [facility] [address] [place] [address] Hematocrit (Bld) [Volume fraction] 43.7 % Normal 38.8-50.0 [facility] Comment on above: Order Comment: Reaso n for Exam Tobacco use;Dyslipidemia;Encounter for screening for maligna Performed By: #### L IPID, TSH3 wRFLX, CMP, CBC #### [facility] [address] Hemoglobin (Bld) [Mass/Vol] 15.0 g/dL Normal 13.0-17.0 [facility] Comment on above: Order Comment: Reaso n for Exam Tobacco use;Dyslipidemia;Encounter for screening for maligna Performed By: #### L IPID, TSH3 wRFLX, CMP, CBC #### [facility] [address] [place] [address] Lymphocytes (Bld) [#/Vol] 2.0 10*3/uL Normal 1.00-4.8 [facility] Comment on above: Order Comment: Reaso n for Exam Tobacco use;Dyslipidemia;Encounter for screening for maligna Performed By: #### L IPID, TSH3 wRFLX, CMP, CBC #### [facility] [address] [place] [address] Lymphocytes/100 WBC (Bld) 27.1 % Normal . [facility] Comment on above: Order Comment: Reaso n for Exam Tobacco use;Dyslipidemia;Encounter for screening for maligna Performed By: #### L IPID, TSH3 wRFLX, CMP, CBC #### [facility] [address] [place] [address] MCH (RBC) [Entitic mass] 32.5 pg Normal 27.5-35.2 [facility] Comment on above: Order Comment: Reaso n for Exam Tobacco use;Dyslipidemia;Encounter for screening for maligna Performed By: #### L IPID, TSH3 wRFLX, CMP, CBC #### [facility] [address] [place] [address] MCV (RBC) [Entitic vol] 94.7 fL Normal 83.5-101 [facility] Comment on above: Order Comment: Reaso n for Exam Tobacco use;Dyslipidemia;Encounter for screening for maligna Performed By: #### L IPID, TSH3 wRFLX, CMP, CBC #### [facility] [address] [place] [address] Mean Corpuscular HGB Conc 34.3 g/dL Normal 32.5-35.6 [facility] Comment on above: Order Comment: Reaso n for Exam Tobacco use;Dyslipidemia;Encounter for screening for maligna Performed By: #### L IPID, TSH3 wRFLX, CMP, CBC #### [facility] [address] [place] [address] [place] Monocytes (Bld) [#/Vol] 0.4 10*3/uL Normal 0.0-0.8 [facility] Comment on above: Order Comment: Reaso n for Exam Tobacco use;Dyslipidemia;Encounter for screening for maligna Performed By: #### L IPID, TSH3 wRFLX, CMP, CBC #### [facility] [address] [id number] [place] Monocytes/100 WBC (Bld) 5.9 % Normal . [facility] Comment on above: Order Comment: Reaso n for Exam Tobacco use;Dyslipidemia;Encounter for screening for maligna Performed By: #### L IPID, TSH3 wRFLX, CMP, CBC #### [facility] [address] [place] [address] [place] Neutrophils (Bld) [#/Vol] 4.6 10*3/uL Normal 1.8-7.7 [facility] Comment on above: Order Comment: Reaso n for Exam Tobacco use;Dyslipidemia;Encounter for screening for maligna Performed By: #### L IPID, TSH3 wRFLX, CMP, CBC #### [facility] [address] [place] [address] [place] Neutrophils/100 WBC (Bld) 61.5 % Normal . [facility] Comment on above: Order Comment: Reaso n for Exam Tobacco use;Dyslipidemia;Encounter for screening for maligna Performed By: #### L IPID, TSH3 wRFLX, CMP, CBC #### [facility] [address] [id number] [place] Nucleated RBC/100 WBC (Bld) [Ratio] 0.0 % Normal 0-0.5 [facility] Comment on above: Order Comment: Reaso n for Exam Tobacco use;Dyslipidemia;Encounter for screening for maligna Performed By: #### L IPID, TSH3 wRFLX, CMP, CBC #### [facility] [address] Platelet mean volume (Bld) [Entitic vol] 6.7 fL Normal 6.6-10.1 [facility] Comment on above: Order Comment: Reaso n for Exam Tobacco use;Dyslipidemia;Encounter for screening for maligna Performed By: #### L IPID, TSH3 wRFLX, CMP, CBC #### [facility] [address] Platelets (Bld) [#/Vol] 298 10*3/uL Normal 150-450 [facility] Comment on above: Order Comment: Reaso n for Exam Tobacco use;Dyslipidemia;Encounter for screening for maligna Performed By: #### L IPID, TSH3 wRFLX, CMP, CBC #### [facility] [address] RBC (Bld) [#/Vol] 4.61 10*6/uL Normal 3.90-5.60 [facility] Comment on above: Order Comment: Reaso n for Exam Tobacco use;Dyslipidemia;Encounter for screening for maligna Performed By: #### L IPID, TSH3 wRFLX, CMP, CBC #### [facility] [address] WBC (Bld) [#/Vol] 7.5 10*3/uL Normal 4.5-11.0 [facility] Comment on above: Order Comment: Reaso n for Exam Tobacco use;Dyslipidemia;Encounter for screening for maligna Performed By: #### L IPID, TSH3 wRFLX, CMP, CBC #### [facility] [address] Comprehensive Metabolic Pane radha 12-07-2020 Albumin [Mass/Vol] 3.6 g/dL Normal 3.2-5.5 [facility] Comment on above: Order Comment: Reaso n for Exam Tobacco use;Dyslipidemia;Encounter for screening for maligna Reason for Exam Dyslipidemia Reason for Exam Hypothyroidism, unspecified type Performed By: #### L IPID, TSH3 wRFLX, CMP, CBC #### [facility] [address] [place] [address] [place] Albumin/Globulin [Mass ratio] 1.1 {ratio} Normal [facility] Comment on above: Order Comment: Reaso n for Exam Tobacco use;Dyslipidemia;Encounter for screening for maligna Reason for Exam Dyslipidemia Reason for Exam Hypothyroidism, unspecified type Performed By: #### L IPID, TSH3 wRFLX, CMP, CBC #### [facility] [address] [place] [address] [place] ALP [Catalytic activity/Vol] 78 U/L Normal 32-92 [facility] Comment on above: Order Comment: Reaso n for Exam Tobacco use;Dyslipidemia;Encounter for screening for maligna Reason for Exam Dyslipidemia Reason for Exam Hypothyroidism, unspecified type Performed By: #### L IPID, TSH3 wRFLX, CMP, CBC #### [facility] [address] [place] [address] [place] ALT [Catalytic activity/Vol] 11 U/L Normal 10-60 [facility] Comment on above: Order Comment: Reaso n for Exam Tobacco use;Dyslipidemia;Encounter for screening for maligna Reason for Exam Dyslipidemia Reason for Exam Hypothyroidism, unspecified type Performed By: #### L IPID, TSH3 wRFLX, CMP, CBC #### [facility] [address] [place] [address] [place] AST [Catalytic activity/Vol] 14 U/L Normal 10-42 [facility] Comment on above: Order Comment: Reaso n for Exam Tobacco use;Dyslipidemia;Encounter for screening for maligna Reason for Exam Dyslipidemia Reason for Exam Hypothyroidism, unspecified type Performed By: #### L IPID, TSH3 wRFLX, CMP, CBC #### [facility] [address] [id number] [place] Bilirubin [Mass/Vol] 0.2 mg/dL Low 0.3-1.2 [facility] Comment on above: Order Comment: Reaso n for Exam Tobacco use;Dyslipidemia;Encounter for screening for maligna Reason for Exam Dyslipidemia Reason for Exam Hypothyroidism, unspecified type Performed By: #### L IPID, TSH3 wRFLX, CMP, CBC #### [facility] [address] [id number] [facility] Calcium [Mass/Vol] 9.2 mg/dL Normal 8.2-10.2 [facility] Comment on above: Order Comment: Reaso n for Exam Tobacco use;Dyslipidemia;Encounter for screening for maligna Reason for Exam Dyslipidemia Reason for Exam Hypothyroidism, unspecified type Performed By: #### L IPID, TSH3 wRFLX, CMP, CBC #### [facility] [address] Chloride [Moles/Vol] 98 mmol/L Normal 95-114 [facility] Comment on above: Order Comment: Reaso n for Exam Tobacco use;Dyslipidemia;Encounter for screening for maligna Reason for Exam Dyslipidemia Reason for Exam Hypothyroidism, unspecified type Performed By: #### L IPID, TSH3 wRFLX, CMP, CBC #### [facility] [address] CO2 [Moles/Vol] 27.7 mmol/L Normal 22.0-30.0 [facility] Comment on above: Order Comment: Reaso n for Exam Tobacco use;Dyslipidemia;Encounter for screening for maligna Reason for Exam Dyslipidemia Reason for Exam Hypothyroidism, unspecified type Performed By: #### L IPID, TSH3 wRFLX, CMP, CBC #### [facility] [address] [id number] [facility] Creatinine [Mass/Vol] 1.00 mg/dL Normal 0.64-1.27 [facility] Comment on above: Order Comment: Reaso n for Exam Tobacco use;Dyslipidemia;Encounter for screening for maligna Reason for Exam Dyslipidemia Reason for Exam Hypothyroidism, unspecified type Performed By: #### L IPID, TSH3 wRFLX, CMP, CBC #### [facility] [address] [place] [address] [place] Estimated GFR ( Keira > 60 Normal [facility] Comment on above: Order Comment: Reaso n for Exam Tobacco use;Dyslipidemia;Encounter for screening for maligna Reason for Exam Dyslipidemia Reason for Exam Hypothyroidism, unspecified type Result Comment: GFR estimated reference range: According to KDOQI guidelines, <60 ml/min/1.73m2 is sufficient to diagnose a patient with chronic kidney disease. Performed By: #### L IPID, TSH3 wRFLX, CMP, CBC #### [facility] [address] Estimated GFR (Non- Am > 60 Normal [facility] Comment on above: Order Comment: Reaso n for Exam Tobacco use;Dyslipidemia;Encounter for screening for maligna Reason for Exam Dyslipidemia Reason for Exam Hypothyroidism, unspecified type Performed By: #### L IPID, TSH3 wRFLX, CMP, CBC #### [facility] [address] Globulin (S) [Mass/Vol] 3.4 g/dL Normal [facility] Comment on above: Order Comment: Reaso n for Exam Tobacco use;Dyslipidemia;Encounter for screening for maligna Reason for Exam Dyslipidemia Reason for Exam Hypothyroidism, unspecified type Performed By: #### L IPID, TSH3 wRFLX, CMP, CBC #### [facility] [address] Glucose [Mass/Vol] 115 mg/dL High 70-100 [facility] Comment on above: Order Comment: Reaso n for Exam Tobacco use;Dyslipidemia;Encounter for screening for maligna Reason for Exam Dyslipidemia Reason for Exam Hypothyroidism, unspecified type Result Comment: [facility] Glucose Reference Range is dependent on time and content of last meal. Glucose of more than 200 mg/dL in a nonstressed, ambulatory subject supports the diagnosis of Diabetes Mellitus. ADA recommended reference range Performed By: #### L IPID, TSH3 wRFLX, CMP, CBC #### [facility] [address] Potassium [Moles/Vol] 4.5 mmol/L Normal 3.5-5.1 [facility] Comment on above: Order Comment: Reaso n for Exam Tobacco use;Dyslipidemia;Encounter for screening for maligna Reason for Exam Dyslipidemia Reason for Exam Hypothyroidism, unspecified type Performed By: #### L IPID, TSH3 wRFLX, CMP, CBC #### [facility] [address] Protein [Mass/Vol] 7.0 g/dL Normal 6.1-7.9 [facility] Comment on above: Order Comment: Reaso n for Exam Tobacco use;Dyslipidemia;Encounter for screening for maligna Reason for Exam Dyslipidemia Reason for Exam Hypothyroidism, unspecified type Performed By: #### L IPID, TSH3 wRFLX, CMP, CBC #### [facility] [address] Sodium [Moles/Vol] 134 mmol/L Low 136-146 [facility] Comment on above: Order Comment: Reaso n for Exam Tobacco use;Dyslipidemia;Encounter for screening for maligna Reason for Exam Dyslipidemia Reason for Exam Hypothyroidism, unspecified type Performed By: #### L IPID, TSH3 wRFLX, CMP, CBC #### [facility] [address] Urea nitrogen [Mass/Vol] 12 mg/dL Normal 9-23 [facility] Comment on above: Order Comment: Reaso n for Exam Tobacco use;Dyslipidemia;Encounter for screening for maligna Reason for Exam Dyslipidemia Reason for Exam Hypothyroidism, unspecified type Performed By: #### L IPID, TSH3 wRFLX, CMP, CBC #### [facility] [address] Lipid Panelon 12-07-2020 Cholesterol [Mass/Vol] 214 mg/dL High 140-200 [facility] Comment on above: Order Comment: Reaso n for Exam Tobacco use;Dyslipidemia;Encounter for screening for maligna Reason for Exam Dyslipidemia Reason for Exam Hypothyroidism, unspecified type Result Comment: Chol less than 200 mg/dl low risk Chol 201-239 mg/dl borderline risk Chol 240 mg/dl and greater high risk Performed By: #### L IPID, TSH3 wRFLX, CMP, CBC #### [facility] [address] Cholesterol in HDL [Mass/Vol] 60 mg/dL Normal 29-71 [facility] Comment on above: Order Comment: Reaso n for Exam Tobacco use;Dyslipidemia;Encounter for screening for maligna Reason for Exam Dyslipidemia Reason for Exam Hypothyroidism, unspecified type Result Comment: HDL CHOL ATP-III CLASSIFICATION Cardiovascular Risk HDL > or equal to 60 mg/dL LOW HDL < 40 mg/dL HIGH Performed By: #### L IPID, TSH3 wRFLX, CMP, CBC #### [facility] [address] Cholesterol.total/Christy sterol in HDL [Mass ratio] 3.6 {ratio} Normal <5.0 [facility] Comment on above: Order Comment: Reaso n for Exam Tobacco use;Dyslipidemia;Encounter for screening for maligna Reason for Exam Dyslipidemia Reason for Exam Hypothyroidism, unspecified type Performed By: #### L IPID, TSH3 wRFLX, CMP, CBC #### [facility] [address] LDL Cholesterol,Calculated 130 mg/dL High 0-100 [facility] Comment on above: Order Comment: Reaso [...] L IPID, TSH3 wRFLX, CMP, CBC #### [facility] [address] [id number] [facility] Triglyceride w/Reflex 121 mg/dL Normal 35-149 [facility] Comment on above: Order Comment: [...] L IPID, TSH3 wRFLX, CMP, CBC #### [facility] [address] [id number] [facility] VLDL CHOLESTEROL 24 mg/dL Normal [facility] Comment on above: Order Comment: Reaso n for Exam Tobacco use;Dyslipidemia;Encounter for screening for maligna Reason for Exam Dyslipidemia Reason for Exam Hypothyroidism, unspecified type Performed By: #### L IPID, TSH3 wRFLX, CMP, CBC #### [facility] [address] [id number] [facility] Thyroid Stim Hormone w/Rflxo n 12-07-2020 Thyroid Stim Hormone w/Rflx 1.62 u[iU]/mL Normal 0.45-5.33 [facility] Comment on above: Order Comment: Reaso n for Exam Tobacco use;Dyslipidemia;Encounter for screening for maligna Reason for Exam Dyslipidemia Reason for Exam Hypothyroidism, unspecified type Result Comment: PERF ORMED BY: [place] [id number] PATHOLOGIST DEVELOPMENT ADVISOR CHANDRAKANT ZARCO M.D. Performed By: #### L IPID, TSH3 wRFLX, CMP, CBC #### [address] Comprehensive Metabolic Pane radha 05-18-2020 Albumin [Mass/Vol] 3.6 g/dL Normal 3.2-5.5 [facility] Comment on above: Order Comment: Reaso n for Exam Hypothyroidism, unspecified type Reason for Exam Hyperlipidemia, unspecified Performed By: #### C MP, LIPID, THYROID SC, SCAN CBC #### [facility] [address] [place] [address] Albumin/Globulin [Mass ratio] 1.2 {ratio} Normal [facility] Comment on above: Order Comment: Reaso n for Exam Hypothyroidism, unspecified type Reason for Exam Hyperlipidemia, unspecified Performed By: #### C MP, LIPID, THYROID SC, SCAN CBC #### [facility] [address] [place], [place] [id number] [place] ALP [Catalytic activity/Vol] 71 U/L Normal 32-92 [facility] Comment on above: Order Comment: Reaso n for Exam Hypothyroidism, unspecified type Reason for Exam Hyperlipidemia, unspecified Performed By: #### C MP, LIPID, THYROID SC, SCAN CBC #### [address] ALT [Catalytic activity/Vol] 13 U/L Normal 10-60 [facility] Comment on above: Order Comment: Reaso n for Exam Hypothyroidism, unspecified type Reason for Exam Hyperlipidemia, unspecified Performed By: #### C MP, LIPID, THYROID SC, SCAN CBC #### [facility] [address] [place] [address] AST [Catalytic activity/Vol] 15 U/L Normal 10-42 [facility] Comment on above: Order Comment: Reaso n for Exam Hypothyroidism, unspecified type Reason for Exam Hyperlipidemia, unspecified Performed By: #### C MP, LIPID, THYROID SC, SCAN CBC #### [facility] [address] [place] [address] Bilirubin [Mass/Vol] 0.4 mg/dL Normal 0.3-1.2 [facility] Comment on above: Order Comment: Reaso n for Exam Hypothyroidism, unspecified type Reason for Exam Hyperlipidemia, unspecified Performed By: #### C MP, LIPID, THYROID SC, SCAN CBC #### [facility] [address] [place] [address] Calcium [Mass/Vol] 9.2 mg/dL Normal 8.2-10.2 [facility] Comment on above: Order Comment: Reaso n for Exam Hypothyroidism, unspecified type Reason for Exam Hyperlipidemia, unspecified Performed By: #### C MP, LIPID, THYROID SC, SCAN CBC #### [facility] [address] [place] [address] Chloride [Moles/Vol] 100 mmol/L Normal 95-114 [facility] Comment on above: Order Comment: Reaso n for Exam Hypothyroidism, unspecified type Reason for Exam Hyperlipidemia, unspecified Performed By: #### C MP, LIPID, THYROID SC, SCAN CBC #### [facility] [address] [place] [address] CO2 [Moles/Vol] 28.2 mmol/L Normal 22.0-30.0 [facility] Comment on above: Order Comment: Reaso n for Exam Hypothyroidism, unspecified type Reason for Exam Hyperlipidemia, unspecified Performed By: #### C MP, LIPID, THYROID SC, SCAN CBC #### [facility] [address] [place] [address] Creatinine [Mass/Vol] 0.94 mg/dL Normal 0.64-1.27 [facility] Comment on above: Order Comment: Reaso n for Exam Hypothyroidism, unspecified type Reason for Exam Hyperlipidemia, unspecified Performed By: #### C MP, LIPID, THYROID SC, SCAN CBC #### [facility] [address] Estimated GFR ( Keira > 60 [facility] Comment on above: Order Comment: Reaso n for Exam Hypothyroidism, unspecified type Reason for Exam Hyperlipidemia, unspecified Result Comment: GFR estimated reference range: According to KDOQI guidelines, <60 ml/min/1.73m2 is sufficient to diagnose a patient with chronic kidney disease. Performed By: #### C MP, LIPID, THYROID SC, SCAN CBC #### [facility] [address] Estimated GFR (Non- Am > 60 [facility] Comment on above: Order Comment: Reaso n for Exam Hypothyroidism, unspecified type Reason for Exam Hyperlipidemia, unspecified Performed By: #### C MP, LIPID, THYROID SC, SCAN CBC #### [facility] [address] [place] [address] Globulin (S) [Mass/Vol] 3.1 g/dL Normal [facility] Comment on above: Order Comment: Reaso n for Exam Hypothyroidism, unspecified type Reason for Exam Hyperlipidemia, unspecified Performed By: #### C MP, LIPID, THYROID SC, SCAN CBC #### [address] Glucose [Mass/Vol] 90 mg/dL Normal 70-100 [facility] Comment on above: Order Comment: Reaso n for Exam Hypothyroidism, unspecified type Reason for Exam Hyperlipidemia, unspecified Result Comment: [facility] Glucose Reference Range is dependent on time and content of last meal. Glucose of more than 200 mg/dL in a nonstressed, ambulatory subject supports the diagnosis of Diabetes Mellitus. ADA recommended reference range Performed By: #### C MP, LIPID, THYROID SC, SCAN CBC #### [address] Potassium [Moles/Vol] 4.4 mmol/L Normal 3.5-5.1 [facility] Comment on above: Order Comment: Reaso n for Exam Hypothyroidism, unspecified type Reason for Exam Hyperlipidemia, unspecified Performed By: #### C MP, LIPID, THYROID SC, SCAN CBC #### [facility] [address] Protein [Mass/Vol] 6.7 g/dL Normal 6.1-7.9 [facility] Comment on above: Order Comment: Reaso n for Exam Hypothyroidism, unspecified type Reason for Exam Hyperlipidemia, unspecified Performed By: #### C MP, LIPID, THYROID SC, SCAN CBC #### [facility] [address] Sodium [Moles/Vol] 136 mmol/L Normal 136-146 [facility] Comment on above: Order Comment: Reaso n for Exam Hypothyroidism, unspecified type Reason for Exam Hyperlipidemia, unspecified Performed By: #### C MP, LIPID, THYROID SC, SCAN CBC #### [facility] [address] [place] [address] Urea nitrogen [Mass/Vol] 9 mg/dL Normal 9-23 [facility] Comment on above: Order Comment: Reaso n for Exam Hypothyroidism, unspecified type Reason for Exam Hyperlipidemia, unspecified Performed By: #### C MP, LIPID, THYROID SC, SCAN CBC #### [facility] [address] [place] [address] Lipid Panelon 05-18-2020 Cholesterol [Mass/Vol] 177 mg/dL Normal 140-200 [facility] Comment on above: Order Comment: Reaso n for Exam Hypothyroidism, unspecified type Reason for Exam Hyperlipidemia, unspecified Result Comment: Chol less than 200 mg/dl low risk Chol 201-239 mg/dl borderline risk Chol 240 mg/dl and greater high risk Performed By: #### C MP, LIPID, THYROID SC, SCAN CBC #### [facility] [address] [place] [address] Cholesterol in HDL [Mass/Vol] 61 mg/dL Normal 29-71 [facility] Comment on above: Order Comment: Reaso n for Exam Hypothyroidism, unspecified type Reason for Exam Hyperlipidemia, unspecified Result Comment: HDL CHOL ATP-III CLASSIFICATION Cardiovascular Risk HDL > or equal to 60 mg/dL LOW HDL < 40 mg/dL HIGH Performed By: #### C MP, LIPID, THYROID SC, SCAN CBC #### [facility] [address] Cholesterol.total/Christy sterol in HDL [Mass ratio] 2.9 {ratio} Normal <5.0 [facility] Comment on above: Order Comment: Reaso n for Exam Hypothyroidism, unspecified type Reason for Exam Hyperlipidemia, unspecified Performed By: #### C MP, LIPID, THYROID SC, SCAN CBC #### [facility] [address] LDL Cholesterol,Calculated 103 mg/dL High 0-100 [facility] Comment on above: Order Comment: Reaso [...] MP, LIPID, THYROID SC, SCAN CBC #### [facility] [address] Triglyceride w/Reflex 65 mg/dL Normal 35-149 [facility] Comment on above: Order Comment: [...] MP, LIPID, THYROID SC, SCAN CBC #### [facility] [address] VLDL CHOLESTEROL 13 mg/dL Normal [facility] Comment on above: Order Comment: Reaso n for Exam Hypothyroidism, unspecified type Reason for Exam Hyperlipidemia, unspecified Performed By: #### C MP, LIPID, THYROID SC, SCAN CBC #### [facility] [address] Scan and CBCon 05-18-2020 Basophils (Bld) [#/Vol] 0.0 10*3/uL Normal 0.0-0.2 [facility] Comment on above: Order Comment: Reason for Exam Hypothyroidism, unspecified type Performed By: #### C MP, LIPID, THYROID SC, SCAN CBC #### [address] Basophils/100 WBC (Bld) 0.8 % Normal . [facility] Comment on above: Order Comment: Reason for Exam Hypothyroidism, unspecified type Performed By: #### C MP, LIPID, THYROID SC, SCAN CBC #### [address] Eosinophils (Bld) [#/Vol] 0.5 10*3/uL High 0.0-0.45 [facility] Comment on above: Order Comment: Reason for Exam Hypothyroidism, unspecified type Performed By: #### C MP, LIPID, THYROID SC, SCAN CBC #### [address] Eosinophils/100 WBC (Bld) 7.9 % Normal . [facility] Comment on above: Order Comment: Reason for Exam Hypothyroidism, unspecified type Performed By: #### C MP, LIPID, THYROID SC, SCAN CBC #### [address] Erythrocyte distribution width (RBC) [Ratio] 13.3 % Normal 12.0-14.8 [facility] Comment on above: Order Comment: Reason for Exam Hypothyroidism, unspecified type Performed By: #### C MP, LIPID, THYROID SC, SCAN CBC #### [address] Hematocrit (Bld) [Volume fraction] 44.3 % Normal 38.8-50.0 [facility] Comment on above: Order Comment: Reason for Exam Hypothyroidism, unspecified type Performed By: #### C MP, LIPID, THYROID SC, SCAN CBC #### [address] Hemoglobin (Bld) [Mass/Vol] 14.8 g/dL Normal 13.0-17.0 [facility] Comment on above: Order Comment: Reason for Exam Hypothyroidism, unspecified type Performed By: #### C MP, LIPID, THYROID SC, SCAN CBC #### [address] Lymphocytes (Bld) [#/Vol] 2.3 10*3/uL Normal 1.00-4.8 [facility] Comment on above: Order Comment: Reason for Exam Hypothyroidism, unspecified type Performed By: #### C MP, LIPID, THYROID SC, SCAN CBC #### [address] Lymphocytes/100 WBC (Bld) 38.6 % Normal . [facility] Comment on above: Order Comment: Reason for Exam Hypothyroidism, unspecified type Performed By: #### C MP, LIPID, THYROID SC, SCAN CBC #### [address] MCH (RBC) [Entitic mass] 32.0 pg Normal 27.5-35.2 [facility] Comment on above: Order Comment: Reason for Exam Hypothyroidism, unspecified type Performed By: #### C MP, LIPID, THYROID SC, SCAN CBC #### [address] MCV (RBC) [Entitic vol] 95.7 fL Normal 83.5-101 [facility] Comment on above: Order Comment: Reason for Exam Hypothyroidism, unspecified type Performed By: #### C MP, LIPID, THYROID SC, SCAN CBC #### [address] Mean Corpuscular HGB Conc 33.5 g/dL Normal 32.5-35.6 [facility] Comment on above: Order Comment: Reason for Exam Hypothyroidism, unspecified type Performed By: #### C MP, LIPID, THYROID SC, SCAN CBC #### [address] Monocytes (Bld) [#/Vol] 0.4 10*3/uL Normal 0.0-0.8 [facility] Comment on above: Order Comment: Reason for Exam Hypothyroidism, unspecified type Performed By: #### C MP, LIPID, THYROID SC, SCAN CBC #### [address] [place] [address] [place] Monocytes/100 WBC (Bld) 7.0 % Normal . [facility] Comment on above: Order Comment: Reason for Exam Hypothyroidism, unspecified type Performed By: #### C MP, LIPID, THYROID SC, SCAN CBC #### [facility] [address] Neutrophils (Bld) [#/Vol] 2.7 10*3/uL Normal 1.8-7.7 [facility] Comment on above: Order Comment: Reason for Exam Hypothyroidism, unspecified type Performed By: #### C MP, LIPID, THYROID SC, SCAN CBC #### [facility] [address] Neutrophils/100 WBC (Bld) 45.7 % Normal . [facility] Comment on above: Order Comment: Reason for Exam Hypothyroidism, unspecified type Performed By: #### C MP, LIPID, THYROID SC, SCAN CBC #### [facility] [address] [place] [address] [place] Nucleated RBC/100 WBC (Bld) [Ratio] 0.1 % Normal 0-0.5 [facility] Comment on above: Order Comment: Reason for Exam Hypothyroidism, unspecified type Performed By: #### C MP, LIPID, THYROID SC, SCAN CBC #### [facility] [address] Platelet Estimate Normal Normal Normal [facility] Comment on above: Order Comment: Reason for Exam Hypothyroidism, unspecified type Performed By: #### C MP, LIPID, THYROID SC, SCAN CBC #### [facility] [address] [place] [address] [place] Platelet mean volume (Bld) [Entitic vol] 7.5 fL Normal 6.6-10.1 [facility] Comment on above: Order Comment: Reason for Exam Hypothyroidism, unspecified type Performed By: #### C MP, LIPID, THYROID SC, SCAN CBC #### [facility] [address] [place] [id number] [facility] Platelet Morphology Normal Normal Normal [facility] Comment on above: Order Comment: Reason for Exam Hypothyroidism, unspecified type Result Comment: PERF ORMED BY: [place] [id number] PATHOLOGIST DEVELOPMENT ADVISOR CHANDRAKANT ZARCO M.D. Performed By: #### C MP, LIPID, THYROID SC, SCAN CBC #### [address] Platelets (Bld) [#/Vol] 252 10*3/uL Normal 150-450 [facility] Comment on above: Order Comment: Reason for Exam Hypothyroidism, unspecified type Performed By: #### C MP, LIPID, THYROID SC, SCAN CBC #### [address] RBC (Bld) [#/Vol] 4.63 10*6/uL Normal 3.90-5.60 [facility] Comment on above: Order Comment: Reason for Exam Hypothyroidism, unspecified type Performed By: #### C MP, LIPID, THYROID SC, SCAN CBC #### [address] RBC morphology finding Nom (Bld) Normal Normal [facility] Comment on above: Order Comment: Reason for Exam Hypothyroidism, unspecified type Performed By: #### C MP, LIPID, THYROID SC, SCAN CBC #### [address] WBC (Bld) [#/Vol] 5.9 10*3/uL Normal 4.5-11.0 [facility] Comment on above: Order Comment: Reason for Exam Hypothyroidism, unspecified type Performed By: #### C MP, LIPID, THYROID SC, SCAN CBC #### [address] THYROID SCREENon 05-18-2020 Free T4 [Mass/Vol] 0.98 ng/dL Normal 0.61-1.12 [facility] Comment on above: Order Comment: Reaso n for Exam Hypothyroidism, unspecified type Reason for Exam Hyperlipidemia, unspecified Performed By: #### C MP, LIPID, THYROID SC, SCAN CBC #### [address] TSH Qn 0.92 m[IU]/L Normal 0.45-5.33 [facility] Comment on above: Order Comment: Reaso n for Exam Hypothyroidism, unspecified type Reason for Exam Hyperlipidemia, unspecified Result Comment: PERF ORMED BY: [place] [id number] PATHOLOGIST DEVELOPMENT ADVISOR CHANDRAKANT ZARCO M.D. Performed By: #### C MP, LIPID, THYROID SC, SCAN CBC #### [facility] [address] Vital Signs Date Time Vital Sign Value Performing Clinician Faci lity 09-06-2022 10:51-0400 Body height 170.1 cm Jorge Mace MD Work Phone: [facility] 09-06-2022 10:51-0400 Body mass index (BMI) [Ratio] 27.65 kg/m2 Jorge Mace MD Work Phone: [facility] 09-06-2022 10:51-0400 Body weight 80 kg Jorge Mace MD Work Phone: [facility] Encounters Encounter Date Encounter Type Care Provider Facility Start: 10-15-2023 End: 10-15-2023 ambulatory [facility] Start: 07-25-2023 End: 07-25-2023 ambulatory GWEN JONES Not Available Start: 06-28-2023 End: 06-28-2023 ambulatory [facility] Start: 06-22-2023 End: 06-22-2023 ambulatory GWEN JONES Not Available Start: 05-25-2023 End: 05-25-2023 ambulatory [facility] Start: 01-29-2023 End: 01-29-2023 ambulatory [facility] Start: 12-11-2022 End: 12-11-2022 ambulatory [facility] Start: 09-06-2022 End: 09-06-[address] Arleth Espino Facility:[facility] Start: 09-06-2022 End: 09-06-2022 Subsequent hospital visit by physician Jorge Mace MD Work Phone: [facility] Comment on above: Solitary pulmonary n odule; Nicotine dependence, cigarettes, uncomplicated; Chronic obstructive pulmonary disease, unspecified (CMS/HCC); Gastro-esophageal reflux disease without esophagitis; Pure hypercholesterolemia, unspecified; Anxiety disorder, unspecified; Depression, unspecified; Hyperlipidemia, unspecified; Other forms of dyspnea; Hypothyroidism, unspecified; Cannabis abuse, uncomplicated Start: 08-24-2022 VIRJOSEPHINEVNATASHAE, Provider : Jennifer Sykes, Status: Pen, Time: 10:30 AM Jorge Mace MD Work Phone: [facility] Work Phone: Start: 08-24-2022 ambulatory PCP UNKNOWN Facility:[facility] Start: 08-23-2022 AUDIT Jorge Mace MD Work Phone: [facility] Work Phone: Start: 07-28-2022 End: 07-29-2022 ambulatory ARLETH SAMSA . Facility:[facility] Start: 07-10-2022 Encounter for preprocedural laboratory examination ARLETH SAMSA . [facility] Start: 07-10-2022 End: 07-10-2022 ambulatory ARLETH SAMSA . Facility:[facility] Start: 07-09-2022 Encounter for preprocedural cardiovascular examination ARLETH SAMSA . [facility] Start: 07-06-2022 End: 07-07-2022 ambulatory ARLETH SAMSA . Facility:[facility] Start: 07-06-2022 End: 07-07-2022 Encounter for preprocedural laboratory examination ARLETH SAMSA . Facility:[facility] Start: 07-03-2022 End: 07-04-2022 ambulatory ARLETH SAMSA . Facility:[facility] Start: 07-03-2022 End: 07-04-2022 Encounter for preprocedural cardiovascular examination ARLETH SAMSA . Facility:[facility] Start: 06-22-2022 End: 06-23-[address] GWEN JONES Facility:[facility] Start: 06-21-2022 End: 06-22-[address] DOT JOSEPH Facility:[facility] Start: 06-12-2022 End: 06-13-[address] GWEN JONES Facility:[facility] Start: 01-24-2022 End: 01-25-[address] GWEN JONES Facility:[facility] Patient encounter status Ashlee Mace MD Work Phone: [facility] Work Phone: Procedures Date Procedure Procedure Detail Performing Clinician Start: 09-06-2022 Bacteria identified in Unspecified specimen by Culture Jorge Mace MD Work Phone: Start: 09-06-2022 Fungus identified in Unspecified specimen by Culture Jorge Mace MD Work Phone: Start: 09-06-2022 Mycobacterium sp jerome ntified in Unspecified specimen by Organism specific culture Jorge Mace MD Work Phone: Start: 09-06-2022 Bronchoscopy Arlethjesus Frey l Ismaelsa DO Work Phone: Start: 09-06-2022 CYTOLOGY NON-PRINCIPAL CLERK RESULTS Jorge Mace MD Work Phone: Start: 09-06-2022 SURGICAL PATHOLOGY RESULTS Jorge Mace MD Work Phone: Start: 01-24-[address] DOT JOSEPH Comment on above: Performed By: #### C CPAB #### [facility] [address] [place] [address] Dr. Hamida Mendez Plan of Treatment Date Care Activity Detail Author Start: 01-22-2023 NPV, Provider: Glen He, Status: Pen, Time: 9:00 AM NPV, Provider: Glen He, Status: Pen, Time: 9:00 AM [facility] Work Phone: Start: 11-17-2022 Influenza vaccination Influenza Vaccine (#1) [facility] Start: 2018 Zoster Vaccines (1 of 2) Zoster Vaccines (1 of 2) [facility] Start: 1990 DTaP/Tdap/Td Vaccines (1 - Tdap) DTaP/Tdap/Td Vaccines (1 - Tdap) [facility] Start: 1987 Hepatitis A Vaccines (1 of 2 - Risk 2-dose series) Hepatitis A Vaccines (1 of 2 - Risk 2-dose series) [facility] Start: 1986 Diabetes mellitus screening Diabetes Screening [facility] Start: 1986 Hepatitis C screening Hepatitis C Screening [facility] Start: 1974 Pneumococcal Vaccine: Pediatrics (0 to 5 Years) and At-Risk Patients (6 to 64 Years) (1 - PCV) Pneumococcal Vaccine: Pediatrics (0 to 5 Years) and At-Risk Patients (6 to 64 Years) (1 - PCV) [facility] Start: 1969 MMR Vaccines (1 of 1 - Standard series) MMR Vaccines (1 of 1 - Standard series) [facility] Start: 1968 COVID-19 Vaccine (#1) COVID-19 Vaccine (#1) [facility] Start: 1968 Hepatitis B Vaccines (1 of 3 - 3-dose series) Hepatitis B Vaccines (1 of 3 - 3-dose series) [facility] Start: 1968 HIV screening HIV Screening [facility] Start: 1968 Lipid panel Lipid Panel [facility] Start: 1968 Screening for malignant neoplasm of colon [facility] Start: 1968 Thyroid stimulating hormone measurement TSH Level [facility] Start: 1968 Yearly Adult Physical Yearly Adult Physical [facility] Immunizations Immunization Date Immunization Notes Care Provider [...] Phone: Payers Date Payer Category Payer Unknown [id number] 1968 Unknown [id number] 1968 Unknown [id number] 1968 Unknown [id number] 1968 Unknown [id number] 1968 Unknown [id number] 1968 Unknown [id number] 1968 Unknown [id number] 1968 Unknown [id number] 1968 Unknown [id number] 1968 Unknown [id number] 1968 Unknown [id number] 1968 Unknown [id number] 1959 Unknown [id number] Unknown [facility] Social History Date Type Detail Facility Tobacco smoking status NHIS Tobacco smoking consumption unknown [facility] Work Phone: Start: 1970 Sex Assigned At Not on file [facility] Work Phone: Gender identity Not on file [facility] Work Phone: Progress note 10-15-2023 Note Date & Type Note Facility 10-15-2023 Note Cardiology Clinic No te Chief Complaint: chest pain HPI: Alona Hodge is a 53 y.o. male With a past medical history including hyperlipidemia, generalized anxiety disorder, Tobacco abuse, and COPD. Patient was referred to Cardiology clinic for evaluation of chest pain. He underwent cardiac cath for unstable angina. He was found to have non obstructive CAD and myocardial bridging. He presents today for follow up. Patient states that he feels very good. He states that his pain has resolved completely since the cardiac catheterization since starting carvedilol. He denies any chest pain. He denies any shortness of breath. He denies any lower extremity edema, orthopnea, or paroxysmal nocturnal dyspnea. He is very pleased with how he is doing Cardiology ROS: GENERAL: Denies fever, chills, night [...] Chest pain, COPD (chronic obstructive pulmonary disease) (CMS/HCC), Hyperlipidemia, and Lung mass. Surgical History He [...] 81 mg by mouth in the morning. Breztri Aerosphere 160-9-4.8 mcg/actuation HFA aerosol inhaler Inhale 2 puffs in the morning and at bedtime. buPROPion XL (Wellbutrin XL) 150 mg 24 hr tablet Take 150 mg by mouth in the morning. carvedilol (Coreg) 3.125 mg tablet Take 1 tablet (3.125 mg) by mouth with breakfast and with evening meal. 180 tablet 3 citalopram (CeleXA) 20 mg tablet Take 30 mg by mouth in the morning. levothyroxine (Synthroid, Levoxyl) 112 mcg tablet 1 (one) time each day at the same time. rosuvastatin (Crestor) 20 mg tablet Take 1 tablet (20 mg) by mouth in the morning. (Patient taking differently: Take 20 mg by mouth at bedtime.) 90 tablet 3 tamsulosin (Flomax) 0.4 mg 24 hr capsule Take 0.4 mg by mouth in the morning. Ventolin HFA 90 mcg/actuation inhaler Inhale 2 puffs every 4 (four) hours if needed. Incruse Ellipta 62.5 mcg/actuation inhalation INHALE 1 PUFF BY MOUTH ONCE DAILY mometasone-formoterol (Dulera) 200-5 mcg/actuation inhaler Inhale 2 puffs in the morning and at bedtime. Mucus Relief ER 600 mg 12 hr tablet Take 600 mg by mouth in the morning and at bedtime. No current facility-administered medications on file prior to visit. Allergies Patient has no known allergies. Physical Exam VITAL SIGNS: BP 118/72 (BP Location: Left arm, Patient Position: Sitting) Pulse 50 Ht 1.702 m (5' 7 ) Wt 74.8 kg (165 lb) SpO2 96% BMI 25.84 kg/m??? Constitutional: Well developed, Well nourished, No [...] Affect normal, Judgment normal, Mood normal. Impression: -Unstable angina, resolved -Non obstructive CAD -Myocardial bridging -Shortness of breath: improved significantly since quitting smoking -Hyperlipidemia, -Tobacco abuse with recent smoking cessation Plan: -Continue Aspirin 81 mg daily and Resuvastatin 20 mg daily for non obstructive CAD -Continue carvedilol 3.125 mg BID for HTN and for myocardial bridging -Continue rosuvastat (more content not included)... [facility] Clinical Note 06-28-2023 Note Date & Type Note Facility 06-28-2023 Note Patient: Alona rodriguez Procedure Information Date/Time: 06/28/23 0830 Procedure: Coronary angiography (Left) Location: [facility] DR[facility] 3 / [facility] (Cath) Providers: Obed Carlos MD Clinical information reviewed: Allergies Meds Physical Exam Airway Mallampati: III Cardiovascular Rhythm: regular Rate: normal Dental Pulmonary - normal exam Abdominal - normal exam Anesthesia Plan ASA 3 other (Conscious sedation) intravenous induction Anesthetic plan and risks discussed with patient. Use of blood products discussed with patient who consented to blood products. Plan discussed with attending. Additional Equipment Requests [facility] Progress note 05-25-2023 Note Date & Type [...] All other systems reviewed and are negative. [facility] Progress note 05-25-2023 Note Date & Type Note Facility 05-25-2023 Note Cardiology Clinic No te Chief Complaint: chest pain HPI: Alona Hodge is a 53 y.o. male With a past medical history including hyperlipidemia, generalized anxiety disorder, Tobacco abuse, and COPD. Patient was referred to Cardiology clinic for evaluation of chest pain. Patient presents today for follow-up. He continues to have chest pain that is worsening in nature. Insurance has continued to denied stress test and echocardiogram. His symptoms are escalating and concerning. He has associated shortness of breath. He denies any lower extremity edema, orthopnea, paroxysmal nocturnal dyspnea. No additional complaints or concerns at the present time. Cardiology ROS: GENERAL: Denies fever, chills, night [...] Chest pain, COPD (chronic obstructive pulmonary disease) (CMS/HCC), Hyperlipidemia, and Lung mass. Surgical History He [...] attack Father Other (pacemaker) Father's Brother Medications No current facility-administered medications on file prior to visit. Current Outpatient Medications on File Prior to [...] puffs every 4 (four) hours if needed. Allergies Patient has no known allergies. Physical Exam VITAL SIGNS: BP 126/76 (BP Location: Left arm, Patient Position: Sitting) Pulse 67 Ht 1.702 m (5' 7 ) Wt 78.5 kg (173 lb) SpO2 95% BMI 27.10 kg/m??? Constitutional: Well developed, Well nourished, No [...] Affect normal, Judgment normal, Mood normal. Impression: -Unstable angina -Shortness of breath: secondary to COPD vs anginal equivalent -Hyperlipidemia, -Tobacco abuse with recent smoking cessation Plan: -Denies having unstable angina. Insurance has denied stress test and echocardiogram. Initially, his symptoms were atypical. They had become more typical and are accelerating. As such, we will proceed directly with cardiac catheterization with possible revascularization. -Procedure was explained to patient at length and in detail. Risks, benefits, and alternatives were discussed. -Patient is informed that risks of this invasive procedure include, but are not limited to, bleeding, hematoma, kidney injury, CVA, arrythmia requiring defibrillation, need for emergent open heart surgery, and . Patient understands these risks and wi (more content not included)... [facility] Progress note 01-29-2023 Note Date & Type [...] Chest pain, COPD (chronic obstructive pulmonary disease) ([facility]), Hyperlipidemia, and Lung mass. Surgical History He [...] order treadmill exer (more content not included)... [facility] Progress note 01-29-2023 Note Date & Type Note Facility 01-29-2023 Note Patient here for [facility] up denied echo and stress test. He [...] All other systems reviewed and are negative. [facility] Progress note 12-11-2022 Note Date & Type [...] Depressed LVEF, and CAD. Patient has a 25-rghd-lgvd smoking history. He is cutting down on [...] Chest pain, COPD (chronic obstructive pulmonary disease) ([facility]), Hyperlipidemia, and Lung mass. Surgical History He [...] importance of smok (more content not included)... [facility] Progress note 12-11-2022 Note Date & Type Note Facility 12-11-2022 Note New patient here to establish care. Ref from Dr. Espino for chest pain. No cardiac hx. Mother and father both had AK. He gets intermittent chest pain with activity. [...] All other systems reviewed and are negative. [facility] Clinical Note 09-06-2022 Note Date & Type Note Facility 09-06-2022 Note Patient Name: Alona Hodge Procedure Date: 09/06/2022 11:36 AM Date of : 1970 Room: Bronchoscopy Room 1 Attending MD: Jorge Mace MD, [id number] Procedure: Bronchoscopy Indications: Left upper lobe nodule Providers: Jorge Mace MD (Doctor), Michelle Borden RN (Nurse), Corinne Franco, Glycerin Operator (Glycerin Operator), Steven Mariscal MD (Fellow) Referring MD: Arleth [...] by the physician, the nurse and the purse seining hand in the procedure room at 11:36 AM. [...] no secretions. Electromagnetic navigation bronchoscopy utilizing the [employer] system with [employer] upgrade was performed. The [...] uncomplicated documented in this encounter [facility] Work Phone: Summary Purpose Family History [...] section and content) DATE CREATED AUTHOR 05/05/2021 [facility] DATE CREATED AUTHOR AUTHOR'S ORGANIZ ATION 10/22/2021 [facility] [facility] DATE CREATED AUTHOR AUTHOR'S ORGANIZ ATION 08/02/2022 [facility] DATE CREATED AUTHOR AUTHOR'S ORGANIZ ATION 08/29/2022 [facility] DATE CREATED AUTHOR AUTHOR'S ORGANIZ ATION 10/26/2022 [facility] DATE CREATED AUTHOR AUTHOR'S ORGANIZ ATION 07/26/2023 [facility] DATE CREATED AUTHOR AUTHOR'S ORGANIZ ATION 10/16/2023 [facility] Reason for Visit (unrecogniz ed section and content) Reason Comments Other Bron[facility] EBUS 93140 FOR RECORDS PERTAINING TO PATIENTS WHO ARE [...] BE BASED ON THE PRIMARY CLINICAL RECORDS. [email or web address] [facility]. provides no warranty or guarantee of the accuracy or completeness of information in this document.
== END 2023-11-27 08:46 | disposition home or self-care (01) ==
LOC: CT 08:45
PROVIDERS: PCP Family Medicine; Visit Provider Internal Medicine
DX: R91.8 Other nonspecific abnormal finding of lung field (principal)
CPT/HCPCS: 71250

== ENCOUNTER 2024-02-21 12:21 | Outpatient (OUT) | payer OTHER, SELFPAY ==
[2024-02-21 12:39] LABS: Basophils Absolute Auto 0.1 10^3/uL (0.0-0.1); Basophils Percent Auto 1.4 % (0.2-2.0); Eosinophils Absolute Auto 0.8 10^3/uL (0.0-0.7); Eosinophils Percent Auto 11.3 % (0.9-7.0); Hematocrit 44.5 % (42.0-54.0); Hemoglobin 14.8 g/dL (14.0-18.0); Immature Granulocytes Abs Auto 0.01 10^3/uL (0.00-0.03); Immature Granulocytes Pct Auto 0.2 % (0.0-0.5); Lymphocytes Absolute Auto 1.9 10^3/uL (1.2-3.8); Lymphocytes Percent Auto 28.1 % (20.5-60.0); Mean Corpuscular HGB Conc 33.3 g/dL (29.9-35.2); Mean Corpuscular Hemoglobin 31.8 pg (25.9-34.0); Mean Corpuscular Volume 95.7 fL (80.0-94.0); Mean Platelet Volume 8.2 fL (9.5-13.5); Monocytes Absolute Auto 0.4 10^3/uL (0.3-0.8); Monocytes Percent Auto 6.2 % (1.7-12.0); Neutrophils Absolute Auto 3.5 10^3/uL (1.4-6.5); Neutrophils Percent Auto 52.8 % (43.0-75.0); Platelet Count 234 10^3/uL (150-450); Red Blood Count 4.65 10^6/uL (4.70-6.10); Red Cell Distribution Width 12.7 % (11.0-15.0); White Blood Count 6.7 10^3/uL (4.0-11.0)
[2024-02-21 12:59] LABS: Estimated Average Glucose 108 mg/dL; Glycohemoglobin A1C 5.4 % (4.5-6.2)
[2024-02-21 13:35] LABS: Free T4 1.25 ng/dL (0.76-1.46)
[2024-02-21 13:48] LABS: Alanine Aminotransferase 12 U/L (16-63); Albumin Globulin Ratio 0.9; Albumin Level 3.3 g/dL (3.4-5.0); Alkaline Phosphatase 79 U/L (46-116); Anion Gap 8.9; Aspartate Amino Transferase 13 U/L (15-37); BUN Creatinine Ratio 8.3; Bilirubin Direct 0.1 mg/dL (0.0-0.2); Bilirubin Total 0.4 mg/dL (0.2-1.0); Calcium 9.1 mg/dL (8.5-10.1); Carbon Dioxide 31.3 mmol/L (21.0-32.0); Chloride 103 mmol/L (98-107); Chol HDL Ratio 2.1; Cholesterol 161 mg/dL (<=200); Estimated GFR (African America >60 (>=60 mL/min/1.73m^2); Estimated GFR (Non-African Ame >60 (>=60 mL/min/1.73m^2); Globulin 3.8 g/dL; Glucose 118 mg/dL (74-106); HDL Cholesterol 77 mg/dL (40-60); Potassium 4.2 mmol/L (3.5-5.1); Prostate Specific Antigen Scrn 0.17 ng/mL (<=4.00); Sodium 139 mmol/L (136-145); Thyroid Stimulating Hormone 1.412 uIU/mL (0.358-3.740); Total Protein 7.1 g/dL (6.4-8.2); Triglycerides 59 mg/dL (<=150); VLDL CHOLESTEROL 11.8 mg/dL
== END 2024-02-21 12:22 | disposition home or self-care (01) ==
LOC: LAB 12:22
PROVIDERS: PCP Family Medicine; Visit Provider Family Medicine
DX: R73.03 Prediabetes (principal); Z79.899 Other long term (current) drug therapy; E78.5 Hyperlipidemia, unspecified; Z12.5 Encounter for screening for malignant neoplasm of prostate; E03.9 Hypothyroidism, unspecified
CPT/HCPCS: 36415; 80048; 80061; 80076; 83036; 84439; 84443; 85025; G0103

== ENCOUNTER 2024-06-13 14:26 | Emergency (ER) | payer OTHER, SELFPAY ==
[2024-06-13 14:36] VITALS: BP 156/89; PULSE 54; TEMP 36.8; O2SAT 98; BMI 27.4
--- NOTE | 2024-06-13 14:52 | ED_ITS ---
HPI HPI - General Adult General Chief complaint: Neck Pain/Injury Stated complaint: SHOULDER/NECK PAIN Time Seen by Provider: 06/13/24 14:27 Source: patient Mode of arrival: walk-in History of Present Illness HPI narrative: Patient is a 54-year-old male known history of COPD who presents with concerns of left shoulder and neck pain. Patient denies any injury states he has been dealing with the pain for the past year. States he was going to get into his family doctor but cannot get in until June he has pain with moving his left shoulder 8/10 throbbing aching and palpable grinding. He notes pain in his left trapezium area at times it will be numb and tingly down his arm but not always present. He notes difficulty with lifting with the left shoulder as well and admits the symptoms have been progressively worsening for over the past year. He denies any change in vision or headache he denies any head or neck injury he is without any fevers or chills patient relies on his right hand for activities of daily living. He denies any symptoms in the lower legs. He denies any recent steroid treatment for his breathing. Onset (ago): year(s) (1) Location: Reports upper extremity (left shoulder) Radiation: Reports neck Severity: moderate Quality: Reports aching Pain Consistency: Reports intermittent Relieving factors: Reports rest Exacerbating factors: Reports movement Associated symptoms: Reports denies other symptoms; Denies shortness of breath or syncope Related Data Previous Rx's ?Medication ?Instructions ?Recorded prednisone 20 mg tablet 40 mg (2 x 20 mg) PO DAILY 5 days 06/13/24 #10 tabs Allergies Allergy/AdvReac Type Severity Reaction Status Date / Time No Known Drug Allergies Allergy Verified 06/13/24 14:35 Opioid HPI Opioid Management Most Recent Opioid Data: No Data to Display Review of Systems ROS Constitutional Denies: fever or chills Eyes Denies: change in vision or blurry vision Ears, nose, mouth, and throat Reports: neck pain (left sided); Denies: throat pain Cardiovascular Denies: chest pain Respiratory Denies: shortness of breath, cough, wheezing or stridor Gastrointestinal Denies: abdominal pain, nausea or vomiting Genitourinary Denies: painful urination or urinary frequency Musculoskeletal Reports: neck pain, extremity pain and joint pain (left shoulder); Denies: back pain or extremity swelling Neurological Denies: headache Psychiatric Denies: anxiety Endocrine Denies: excessive urination Hematologic/Lymphatic Denies: easy bruising PFSH PFSH Social History Little interest or pleasure in doing things: not at all Feeling down, depressed, or hopeless: not at all Exam Narrative Exam Narrative: Nurses notes and vital signs reviewed and patient is not hypoxic. General: The patient appears well and in no apparent distress. Patient is resting comfortably on cart. Patient grimaces with movement of left shoulder. Skin: Warm, dry, no pallor noted. No evidence of rash Head: Normocephalic, atraumatic Neck: Supple, trachea mid-line, tenderness left paravertebral cervical muscles into the left trapezium palpable spasm in the left trapezium patient has full range of motion notes tightness and spasm with looking to the left. Minimal chin tilt. No meningeal sounds Eye: Pupils are equal, round and reactive to light, EOMI Ears, Nose, Mouth, and Throat: External exam unremarkable Cardiovascular: Regular Rate and Rhythm Respiratory: Patient is in no distress, no accessory muscle use, lungs are clear to auscultation, no wheezing, rales or rhonchi. Chest Wall: no tenderness Back: non-tender, no CVA tenderness Musculoskeletal: Right shoulder with full range of motion without pain left shoulder noted for crepitus tenderness to the AC joint and glenohumeral joint on palpation patient is able to abduct actively to 30 degrees with onset of pain passive range of motion is full and internal rotation is to L2 patient has positive Saavedra and Neer sign crepitus noted with motion and notable weakness with empty can and a mild drop arm sign is appreciated. Resistor Testing Machine Operator strength equal and symmetric wrist flexion extension is 5/5 biceps triceps 5/5 full strength with pronation supination. Deltoids fire 5/5 with no paresthesia noted. GI: Normal bowel sounds, no tenderness to palpation, no masses appreciated. No rebound, guarding, or rigidity noted. Neurological: A&O x4, reflexes 2+ symmetric biceps triceps and brachial radialis. Psychiatric: Cooperative Constitutional Vital Signs, click to edit/add: Last Vital Signs Temp 98.2 F 06/13/24 14:36 Pulse 54 L 06/13/24 14:36 Resp 18 06/13/24 14:36 BP 156/89 H 06/13/24 14:36 Pulse Ox 98 06/13/24 14:36 O2 Del Method Room Air 06/13/24 14:36 Course Vital Signs Vital signs: Vital Signs Temperature 98.2 F 06/13/24 14:36 Pulse Rate 54 L 06/13/24 14:36 Respiratory Rate 18 06/13/24 14:36 Blood Pressure 156/89 H 06/13/24 14:36 Pulse Oximetry 98 06/13/24 14:36 Oxygen Delivery Method Room Air 06/13/24 14:36 Temperature 98.2 F 06/13/24 14:36 Pulse Rate 54 L 06/13/24 14:36 Respiratory Rate 18 06/13/24 14:36 Blood Pressure 156/89 H 06/13/24 14:36 Pulse Oximetry 98 06/13/24 14:36 Oxygen Delivery Method Room Air 06/13/24 14:36 Medical Decision Making MDM Narrative Medical decision making narrative: Discussed acute on chronic shoulder pain there is no signs or symptoms of infection crepitus and limited range of motion highly concerning for rotator cuff tear possible arthropathywith crepitus suspected left paravertebral cervical neck pain from compensation cervical radiculopathy as appears less likely we discussed treatment options patient agreeable to prednisone taper with risks and benefits discussed he has been on these occasionally for his breathing symptoms which are currently baseline. He denies any chest pain or shortness of breath. He was given a Toradol shot here for anti-inflammatory effect and x- rays were performed for baseline given his length of symptoms and no specialty care we discussed the need to follow-up with orthopedics for ongoing evaluation and management patient will return to the ER if symptoms worsen or new symptoms develop x-ray results were discussed with patient at bedside Reviewed x-rays with the patient at bedside glenohumeral joint well-preserved arthritis noted at the AC joint with some spurring his cervical spine is limited on views but there is some anterior listhesis C4 and C5 and patient may require flexion-extension views on outpatient basis or further imaging with MRI. We discussed his shoulder is concerning for rotator cuff tear that may have occurred a year ago by history and limitations. Patient states he would like to give the oral steroids a bit of time to work he is verbally understanding that he likely has a rotator cuff tear but states he has a few things he needs to finish before they give him restrictions so that he cannot use his shoulder. Patient under the need for follow-up with orthopedics states he would call Sunday for a follow-up in 1 week and declined for me to schedule an appointment on Sunday this appears to be a chronic shoulder pain with acute worsening of symptoms and weakness that has been present for some time. Does exhibit signs of intermittent cervical radiculopathy in the left arm potentially C5 or C6. No focal weakness today Of arthritic changes in the cervical spine and chronic lung changes consistent with likely COPD patient verbalized understanding and formal radiology interpretations are pending at time of discharge The patient is to followup with primary care physician/ Dr. Quintana in next 2-3 days or to return to the emergency department should any of the signs or symptoms worsen or new symptoms develop. Patient had questions answered. The patient agrees with the following Diagnosis and Treatment plan and the patient will be discharged home. Discharge Plan Discharge Chief Complaint: Neck Pain/Injury Clinical Impression: Chronic left shoulder pain, Cervical radiculopathy, Left rotator cuff tear Patient Disposition: Home, Self-Care Time of Disposition Decision: 15:35 Condition: Good Prescriptions / Home Meds: New prednisone 20 mg tablet 40 mg PO DAILY 5 Days Qty: 10 0RF Print Language: Greenlandic Instructions: Shoulder Pain (ED) Additional Instructions: Please call Dr. Quintana's office on sunday to get an appoint within 1 week for evaluation Referrals: Siddhartha Huff MD [Primary Care Provider] - 1 week Brad Quintana MD [Physician] - 06/16/24 10:00 am
[2024-06-13] MEDS: KETOROLAC TROMETHAMINE 60 MG/2 ML VIAL IM (14:55)
[2024-06-13] MEDS: PREDNISONE 20 MG TABLET 60 MG PO (14:55)
== END 2024-06-13 15:39 | disposition home or self-care (01) ==
PROVIDERS: Emergency Provider Emergency Medicine; PCP Family Medicine
DX: M25.512 Pain in left shoulder (principal); M54.12 Radiculopathy, cervical region; M75.102 Unspecified rotator cuff tear or rupture of left shoulder, not specified as traumatic; G89.29 Other chronic pain; J44.9 Chronic obstructive pulmonary disease, unspecified
CPT/HCPCS: 72040; 73030; 96372; 99284; J1885; J7512

== ENCOUNTER 2024-07-01 08:46 | Outpatient (OUT) | payer OTHER, SELFPAY ==
--- NOTE | 2024-07-01 08:48 | MR_ITS ---
[address] [address] Patient Name: ALONA PATINO MRN: [id number] date: 1970 Sex: M Assigned Patient Location: MRI Current Patient Location: MRI Accession/Order Number: [id number] Exam Date: 07/01/2024 12:27 Report Date: 07/01/2024 12:33 At the request of: DOT HERNANDEZ MD Procedure: MR shoulder LT wo con MRI left Shoulder without contrast TECHNIQUE: Multiplanar T1 and T2-weighted imaging obtained without contrast. HISTORY: Acute left shoulder pain with radiation to the neck COMPARISON: Plain film left shoulder 06/13/2024 BONE MARROW EDEMA: None FRACTURE: None AC JOINT: Acromioclavicular marginal spurring. Effacement of supraspinatus. Joint effusion. Subchondral bone marrow edema. Adjacent soft tissue edema. SHOULDER ROOF LIGAMENTS: The coracoacromial and coracoclavicular ligaments are intact. ROTATOR CUFF: Heterogeneous signal changes of supraspinatus tendon consistent with mild to moderate tendinosis. No retracted full-thickness tear. Intact infraspinatus. Intact teres minor. Intact subscapularis tendon. Mild cystic changes of the greater tuberosity. ROTATOR CUFF INTERVAL: Unremarkable BURSAL FLUID: No subacromial subdeltoid bursal fluid identified. GLENOID: Intact BICEPS LABRAL COMPLEX: Intact LONG HEAD OF BICEPS TENDON: Intact GLENOHUMERAL LIGAMENTS: The superior glenohumeral ligament is intact. The middle glenohumeral ligament is intact. The anterior and posterior glenohumeral ligaments are intact. JOINT EFFUSION: No significant joint effusion is seen. MUSCLES: Normal signal intensity of the muscles. NO SUBCUTANEOUS TISSUES: No subcutaneous abnormalities identified. MR/MR shoulder LT wo con IMPRESSION: Acromioclavicular arthrosis with inferior marginal spurring effacing the supraspinatus. Mild to moderate tendinosis of supraspinatus tendon. No retracted full-thickness tear of rotator cuff. Impression dictated by: Hayden Hurd M.D.07/01/2024 12:33 PM Dictation Location: [place] [address] Electronically authenticated by: [id number] Y Date: 07/01/2024 12:33
== END 2024-07-01 08:47 | disposition home or self-care (01) ==
LOC: MRI 08:46
PROVIDERS: PCP Family Medicine; Visit Provider Orthopaedic Surgery
DX: M25.512 Pain in left shoulder (principal); M19.012 Primary osteoarthritis, left shoulder
CPT/HCPCS: 73221

== ENCOUNTER 2024-09-03 12:54 | Outpatient (OUT) | payer OTHER, SELFPAY ==
--- OUTSIDE RECORDS SUMMARY | 2023-12-31 06:02 | XMS_ITS ---
Author Organization [facility] in [place] Address [address] [place] [address] Care Team Providers Care Diesel Powerplant Mechanic Helper Name Role Phone Siddhartha Huff MD Primary Care Provider Unavailab rodri BenDarshan Unavailable [phone] REASON FOR VISIT Albuterol Neb Refill Encounters Encounter Location Date Provider Diagnosis Pulmonary Medicine [place] [address] [place] [address] 12/31/2023 Darshan Contreras Plan Of Treatment Next Appt Details Provider Name:Darshanjesus Guevara, 12/17/2024 10:00:00 AM, [address] [place], [address], Progress Notes * Drew HODGE SDOB: [birth year] (53 yo M)Acc No.[id number]:12/31/2023 Patient: Drew SMALLWOOD :1970 A ge:53 Y S ex:Male Address:[address] [place] [id number] * true * Date: Generated for Printi ng/Faxing/eTransmitting on: 0 09/03/2024 12:58 PM EDT
--- OUTSIDE RECORDS SUMMARY | 2024-07-14 04:30 | XMS_ITS ---
Author Organization [facility] Address [address] [place] [address] Care Team Providers Care Scratch Finisher Name Role Phone Siddhartha Huff Primary Care Provider Brad Luke Unavailable [phone] Allergies No Known Allergies Reason For Referral Reason DENIED...........ple ase obtain authorization for MRI Cervical Diagnosis 1 Cervical radiculopat hy (M54.12) Referral Organization [facility] Referring Provider First Name Brad Referring Provider Last Name Lilian Referring Provider Speciality Orthopedic Surgery Referred Organization [facility] Referred Address [place], [place], Procedure 1 MRI Cervical w/o dye ([address]) General Notes Julia Elise 025 10:38:58 AM >PENDING ENRRIQUE TRX #[id number] CLINICAL ATTACHED, Julia Elise 07/17/2024 07:25:00 AM >STILL PENDINGArik Amy 07/18/2024 07:35:22 AM >STILL PENDINGArik Amy 07/21/2024 09:06:25 AM >STILL PENDINGArik Amy 07/22/2024 07:23:44 AM >STILL PENDINGArik Amy 07/23/2024 07:25:26 AM >STILL PENDINGArik Amy 07/23/2024 02:47:33 PM >DENIED PER ENRRIQUE: , Denial Rationale, The notes sent do not meet Cervical Spine MRI guidelines. Thus, the procedure is not shown to be medically needed. A physician reviewer made this decision based on a review of the following notes that were sent: you have neck pain. Prior to an approval, the following doctor's notes should be sent: notes from your doctor that show you tried neck exercises (such as formal physical therapy, a medically directed home exercise program, or chiropractic treatments) for six weeks and did not get better. The dates need to show this was done in the last six months. (Documentation that shows participation may include the following: a discharge summary, notes stating the total number of visits with dates, or full details of the home exercise plan and days performed). [employer] Clinical Guideline 040 for Cervical Spine MRI was used to make this decision MA NOTIFIED COPY IN CHART, Ceci Griffin 07/24/2024 08:45:44 AM > Per Dr. Quintana, needs to try PT/OT. Sent order to [facility] in [place] and scheduled a follow up appointment. Referral Priority Routine REASON FOR VISIT LEFT SHOULDER MRI F/U @ [facility] Medications Medication SIG (Take, Route, Frequency, Duration) Notes Start Date End Date Status buPROPion Active citalopram Active levothyroxine Active Mucus Relief Active lovastatin Active cefdinir Active doxycycline Active predniSONE Active Social History Tobacco Use: Social History Observation Description Date Details (start date - stop date) Never Smoker NA - NA AUDIT-C (Standard) Question Answer Notes Did you have a drink containing alcohol in the p ast year? No Points 0 Interpretation Negative Tobacco Control (Standard) Question Answer Notes Tobacco use: Nonsmoker Vital Signs Height 5'7 in 07/14/2024 Weight 172 lbs 07/14/2024 BMI 26.94 07/14/2024 Encounters Encounter Location Date Provider Diagnosis [facility] [address] [place] [address] [place] [address] 07/14/2024 Brad Quintana Cervical radiculopat hy M54.12 Assessments Encounter Date Diagnosis (ICD Code) Assessment Notes Treatment Notes Treatment Clinical Notes Section Notes 07/14/2024 Cervical radiculopathy (ICD-10 - M54.12) 07/14/2024 Other For his significant weakness in his left upper extremity with a normal MRI of his shoulder I have recommended an MRI of his C-spine to evaluate for a large disc herniation causing profound weakness in his left upper arm and the need for surgical intervention. He will follow-up once the MRI of his cervical spine is complete. Import medication Plan Of Treatment Treatment Notes Assessment Notes Other For his significant weakness in his left upper extremity with a normal MRI of his shoulder I have recommended an MRI of his C-spine to evaluate for a large disc herniation causing profound weakness in his left upper arm and the need for surgical intervention. He will follow-up once the MRI of his cervical spine is complete. Import medication Pending Test Test Name Order Date PT/OT - Eval and Treat 07/14/2024 Referrals Referral Date Details 07/14/2024 07/14/2024, DENIED.. .........please obtain authorization for MRI Cervical, [place] Next Appt Details Follow Up: after mri, Reason : Progress Notes * ALONA PATINO SDOB: [birth year] (54 yo M)Acc No.[id number]:07/14/2024 Patient: ALONA SMALLWOOD Provider: Garrison Quintana MD :1970 A ge:54 Y S ex:Male Date:07/14/2024 Address:[address] [place], [place] [id number] Pcp:Siddhartha Huff Subjective: * Chief Complaints: * 1 . LEFT SHOULDER MRI F/U @ [facility]. * HPI: G eneral Follow Up Information: Patient presents today for follow-up of his left shoulder MRI scan. Further discussion with him he has had neck pain for a long time but it has been in the past several weeks that he started to develop arm weakness. He also has numbness and tingling that travels down to his fingertips. * ROS: M usculoskeletal: Admits N juan antonio Pain. * Medical History: A sthma/COPD, Respiratory problems:, Lung Disease, Problems with Anesthesia, Heart problems:, Hypothyroidism, Depression, Mental Illness:, Anxiety. * Surgical History: B ack surgery . * Family History: N o Family History documented.. * Social History: A ABIEL-C (Standard) D id you have a drink containing alcohol in the past year? N o,?Points 0 , I nterpretation N egative. T obacco Control (Standard) T obacco use: N onsmoker. * Medications: T aking cefdinir , Taking doxycycline , Taking predniSONE , Taking Mucus Relief , Taking lovastatin , Taking levothyroxine , Taking buPROPion , Taking citalopram , Discontinued Wellbutrin SR , Discontinued CeleXA , Medication List reviewed and reconciled with the patient * Allergies: N .K.D.A. Objective: * Vitals: H t: 5'7 , Wt: 172 lbs, BMI:26.94. * Examination: G eneral examination: E xamination today of his cervical spine reveals a positive Spurling's maneuver. He has muscle atrophy in the infraspinatus on exam today. He has a gross weakness with shoulder abduction, forward flexion and shoulder external rotation. He has 4 out of 5 with resisted triceps and deltoid testing. 5 out of 5 check inspector strength and wrist flexion extension strength. Normal sensation in his hand but diminished sensation in his forearm and arm. Deep tendon reflexes are absent in the left side. Shayy sign is negative. He denies bowel or bladder dysfunction. Assessment: * Assessment: 1. C ervical radiculopathy - M54.12 (Primary) Plan: * Treatment: 2. O thers Notes: For his significant weakness in his left upper extremity with a normal MRI of his shoulder I have recommended an MRI of his C-spine to evaluate for a large disc herniation causing profound weakness in his left upper arm and the need for surgical intervention. He will follow-up once the MRI of his cervical spine is complete. Import medication * Follow Up: a fter mri Forms: * Images: * Electronic signature of Apolinar Quintana MD on 09/03/2024 at 12:57 PM EDT Sign off status: Pending * Provider: Garrison Quintana MD Date: 07/14/2024 Generated for Rusty phoenix/Julisa/Tanmayitting on: 0 09/03/2024 12:57 PM EDT History and Physical Notes * HPI (History of Present Illness) Category Sub-Category Detail Notes Category Not es General Follow Up Information Patient presents tod ay for follow-up of his left shoulder MRI scan. Further discussion with him he has had neck pain for a long time but it has been in the past several weeks that he started to develop arm weakness. He also has numbness and tingling that travels down to his fingertips. Examination Category Sub-Category Detail Notes Category Not es General examination Examinat ion today of his cervical spine reveals a positive Spurling's maneuver. He has muscle atrophy in the infraspinatus on exam today. He has a gross weakness with shoulder abduction, forward flexion and shoulder external rotation. He has 4 out of 5 with resisted triceps and deltoid testing. 5 out of 5 check inspector strength and wrist flexion extension strength. Normal sensation in his hand but diminished sensation in his forearm and arm. Deep tendon reflexes are absent in the left side. Shayy sign is negative. He denies bowel or bladder dysfunction. Consultation Request Notes Referral Date Referring Provider Referred Provider Not es 07/14/2024 Brad Quintana , [facility]..... ......please obtain authorization for MRI Cervical
--- OUTSIDE RECORDS SUMMARY | 2024-08-26 11:30 | XMS_ITS | Encounter Summary ---
Author Organization [facility] Address [address] [place] [address] Care Team Providers Care Biology Manager Name Role Phone Siddhartha Huff MD Primary Care Provider Siddhartha Huff MD Unavailable Reason for Visit * Rehabilitation - Outpatient (Routine) - Authorized Specialty Diagnoses / Procedures Referred By Trice bergeron Referred To Contact Physical Therapy Diagnoses Radiculopathy, cervical region Procedures MO PHYSICAL THERAPY EVALUATION LOW COMPLEX 20 MINS MO OFFICE/OUTPATIENT NEW HIGH MDM 60 MINUTES Brad Quintana MD [address] [place] [address] [place] [address] Phone: tel: fax: [facility] [address] [facility] [address] [place] [address] Phone: tel: fax: Referral ID Status Reason Start Date Expiration Date V isits Requested Visits Authorized [id number] Authorized 07/29/2024 03/18/2025 8 8 Encounter Details Date Type Department Care Team (Late st Contact Info) Description 08/26/2024 11:30 AM EDT Treatment [facility] [address] [facility] [address] [place] [phone] Jono Heller, PT [address] [id number] Left cervical radiculopathy (Primary Dx); Muscle left arm weakness Social History Tobacco Use Types Packs/Day Years Used Date Smoking Tobacco: Former Cigarettes 1 35 0 04/19/1988 - 04/19/2023 Smokeless Tobacco: Never Social Connection and Isolat ion Panel [NHANES] Answer Date Recorded In a typical week, how many times do you talk on the phone with family, friends, or neighbors? More than three times a week 07/24/2023 How often do you get togethe r with friends or relatives? Once a week 07/24/2023 How often do you attend chur ch or confucianist services? Never 07/24/2023 Do you belong to any clubs o r organizations such as catholic groups, unions, fraternal or athletic groups, or school groups? No 07/24/2023 How often do you attend meet ings of the clubs or organizations you belong to? Never 07/24/2023 Are you , , di vorced, , never , or living with a partner? 07/24/2023 AUDIT-C Answer Date Recorded Q1: How often do you have a drink containing alcohol? Never 07/24/2023 Q2: How many drinks containi ng alcohol do you have on a typical day when you are drinking? Patient does not drink Q3: How often do you have si x or more drinks on one occasion? Never 07/24/2023 Overall Financial Resource Strain (CARDIA) Answe r Date Recorded How hard is it for you to pa y for the very basics like food, housing, medical care, and heating? Hard 07/24/2023 [facility] Answer Date Recorded Do you feel stress - tense, restless, nervous, or anxious, or unable to sleep at night because your mind is troubled all the time - these days? To some extent 07/24/2023 Exercise Vital Sign Answer Date Recorde d On average, how many days pe r week do you engage in moderate to strenuous exercise (like a brisk walk)? 7 days 07/24/2023 On average, how many minutes do you engage in exercise at this level? 30 min 07/24/2023 Hunger Vital Sign Answer Date Recorded Within the past 12 months, y ou worried that your food would run out before you got the money to buy more. Often true Within the past 12 months, t he food you bought just didn't last and you didn't have money to get more. Sometimes true 09/2023 PRAPARE - Transportation Answer Date Re corded In the past 12 months, has l ack of transportation kept you from medical appointments or from getting medications? No 09/2023 In the past 12 months, has l ack of transportation kept you from meetings, work, or from getting things needed for daily living? No 07/24/2023 Housing Stability Vital Sign Answer Yuriy e Recorded In the last 12 months, was t here a time when you were not able to pay the mortgage or rent on time? No 07/24/2023 In the last 12 months, how many places have you lived? 1 07/24/2023 In the last 12 months, was t here a time when you did not have a steady place to sleep or slept in a half-way (including now)? No 07/24/2023 Sex and Gender Information Value Date Recorded Sex Assigned at Not on file Legal Sex Male 9:37 AM EST Gender Identity Not on file Sexual Orientation Not on file documented as of this encounter Progress Notes * Jono Heller, PT - 08/26/2024 11:30 AM EDT Physical Therapy Treatment Visit Patient Name: Drew Hodge Today's Date: 08/26/24 Encounter Diagnoses Name Primary? Left cervical radiculopathy Yes Muscle left arm weakness Visit number: 6 ( of 8 visits) Timed Code Treatment: 38 minutes Total Treatment Time: 38 minutes Time In: 1130 Time Out: 1208 History: Pt. Presents to PT with c/c of left cervical radiculopathy which started couple months ago. Pt. Has severe left shoulder weakness and is unable to reach greater than 45 degrees of elevation.Pt. Had MRI of left shoulder and was normal. MRI of cervical spine was denied with insurance until he completes 6 weeks of PT. Pt. Demonstrates severe left shoulder muscle weakness affecting his quality of life and unable to perform overhead activities. Precautions: univseral Subjective Reports improvement in his shoulder ROM to 90 degrees. Less neck pain throughout the daybut continues to have difficulty reaching above 90 degrees of flexion. Pt. Is waiting global transportation manager for MRI approval. Pain: 0/10 neck, Objective: PT Evaluation (07/30/24) Cervical ROM: flexion decreased 30%, rotation right 40 deg, left 40 deg, sidebending right 20 deg, left 25 deg, extension poor 10 deg Left Shoulder AROM: left flexion 45 deg, abduction 45 deg due to severe muscle weakness Left Shoulder PROM: WNL in all planes Palpation: scapular atrophy, increased cervical paraspinal muscle tightness Strength: left shoulder flexion 2+/5, abduction 2+/5, ER 3-/5, IR 4-/5, proprietary trader right 90#, left 80# Joint: severe C4/C6 joint hypomobility Treatment: Manual Therapy: (15 minutes) Delivered manual ther to cervical spine pt supine gentle SOR, cervicaldistraction Passive ROM, bilateral upper trap stretch to improve mobility and decrease pain Therapeutic Exercise: (23 minutes supervised ) Guided pt through ther and flex ex per exercises grid to improve cervical postural Strength, Endurance, Flexibility, ROM, HEP, Neural Mobilization, Power, and Core Stability Therapeutic Activity: Exercises to improve dynamic activities, functional tasks, functional mobility to return to prior activity level Neuromuscular re-education: Balance Training, Muscle Facilitation, Dynamic Stability, Core Stabilization, and Blood Flow Restriction Training (BFRT) Modalities: Heat, Ice, Electrical Stimulation, Ultrasound, Cervical Mechanical Traction, Lumbar Mechanical Traction, Iontophoresis, and Fluidotherapy Assessment: Pt has participated in 6 PT session with start of POC on 07/29 for left cervical radiculopathy. Pt.Demonstrate large cervical spine HNP at C5 segment leading to severe left shoulder muscle weakness. Continue with PT for couple more PT session to finish out 8 PT session approval. Recommend MRI of cervical spine. Outcome Measure: in chart, (08/08/24): 15/50 Short Term Goal: To be met in 2 weeks Goal 1: Pt to be instructed in home exercise program. Prison Goals: To be met in 10 weeks Goal 1: Pt to report independence and compliance with home program. Goal 2: Pt. Will report of 3/10 or less neck pain while perform work tasks. Goal 3: Pt. Will demonstrate normal cervical and shoulder ROM grossly in all planes to help him return to PLOF. Goal 4: Pt. Will demonstrate 4/5 or greater left shoulder strength grossly in all planes to help improve his functional mobility. Pt will benefit from skilled PT for 1-3x/week from 07/30/24 to 10/08/24 to address the above impairments. I hereby deem this POC medically necessary. Please sign below. Date: documented in this encounter Plan of Treatment Upcoming Encounters Date Type Department Care Team (Late st Contact Info) Description 01/21/2025 9:00 AM EST Office Visit [facility] [address] [place] [address] Siddhartha Huff MD [address] [place] [phone] documented as of this encounter Visit Diagnoses Diagnosis Left cervical radiculopathy- Primary Muscle left arm weakness Muscle weakness (generalized) documented in this encounter Care Teams Biology Manager Relationship Specialty Start Date End Date Siddhartha Huff MD [address] [place] [phone] PCP - General Family Medicine 06/22/23 Siddhartha Huff MD [address] [place] [phone] PCP - [facility] 12/18/23 documented as of this encounter
--- NOTE | 2024-09-03 12:57 | MR_ITS ---
The [address] [address] Patient Name: ALONA PATINO MRN: [id number] date: 1970 Sex: M Assigned Patient Location: MRI Current Patient Location: MRI Accession/Order Number: [id number] Exam Date: 09/03/2024 15:06 Report Date: 09/03/2024 15:17 At the request of: DIMA OLSEN Procedure: MR cervical spine wo con MR cervical spine wo con 09/03/2024 1:35 PM SIGNS AND SYMPTOMS: Neck pain with radiculopathy into left upper extremity, left arm weakness PROTOCOL: Multiplanar multisequence MR images of the cervical spine without IV contrast COMPARISON: 06/13/2024 FINDINGS: There is 4 mm of anterolisthesis of C4 upon C5. The bones are in anatomic alignment otherwise. There is preservation of vertebral body heights. There is moderate disc height loss at C3-C4 and C4-C5. There is severe disc height loss at C5-C6 and C6-C7. There is Modic type II fatty endplate degenerative change at C5-C6. There is Modic type I endplate edema at C4-C5. The cord is normal in signal. No epidural or paraspinous fluid collection is appreciated. The visualized paraspinous soft tissues are within normal limits. The prevertebral soft tissues are within normal limits. At C2-C3: There is a normal disc, central canal, and neural foramen. At C3-C4: There is a broad-based disc bulge with facet hypertrophy and uncovertebral joint spurring. There is moderate to severe bilateral neural foraminal narrowing with moderate to severe spinal canal stenosis. At C4-C5: There is a broad-based disc bulge with uncovertebral joint spurring and facet hypertrophy. There is moderate severe left and mild right neural foraminal narrowing. There is moderate spinal canal narrowing. At C5-C6: There is facet hypertrophy with uncovertebral joint spurring. There is severe bilateral neural foraminal narrowing left greater the right with moderate to severe spinal canal narrowing. At C6-C7: There is uncovertebral joint spurring and facet hypertrophy with moderate bilateral neural foraminal stenosis. There is mild spinal canal stenosis. At C7-T1: There is a normal disc, central canal, and neural foramen. MR/MR cervical spine wo con IMPRESSION: No cord compression or cord signal abnormality. At C3-C4: There is a broad-based disc bulge with facet hypertrophy and uncovertebral joint spurring. There is moderate to severe bilateral neural foraminal narrowing with moderate to severe spinal canal stenosis. At C4-C5: There is a broad-based disc bulge with uncovertebral joint spurring and facet hypertrophy. There is moderate severe left and mild right neural foraminal narrowing. There is moderate spinal canal narrowing. There is 4 mm of anterolisthesis of C4 upon C5 similar to the prior radiographs. At C5-C6: There is facet hypertrophy with uncovertebral joint spurring. There is severe bilateral neural foraminal narrowing left greater the right with moderate to severe spinal canal narrowing. Impression dictated by: Abbe Neves M.D. 09/03/2024 3:17 PM Dictation Location: [place] [address] Electronically authenticated by: [id number] Y Date: 09/03/2024 15:17
--- OUTSIDE RECORDS SUMMARY | 2024-09-03 12:57 | XMS_ITS | Encounter Summary ---
Author Organization [facility] Address [address] [place] [address] Care Team Providers Care Hub Cutter Name Role Phone Siddhartha Huff MD Primary Care Provider [phone] Siddhartha Huff MD Unavailable Encounter Details Date Type Department Care Team (Late st Contact Info) Description 11/28/2023 Clinisync Result Encounter [facility] External Department Unsolicited Provider, Generic External Data Social History Tobacco Use Types Packs/Day Years [...] 07/24/2023 How often do you attend chur or latter-day services? Never 07/24/2023 Do you belong to any clubs o r organizations such as congregational groups, unions, fraternal or athletic groups, or [...] you are drinking? Patient does not drink 05/07/202 4 Q3: How often do you have si x or more drinks on one occasion? Never 07/24/2023 Overall Financial Resource Strain (CARDIA) Answe r Date Recorded How hard is it for you to pa y for the very basics like food, housing, medical care, and heating? Hard 07/24/2023 [facility] - Occupational Stress Questionnaire Answer Date Recorded [...] place to sleep or slept in a usp (including now)? No 07/24/2023 Sex and Gender Information Value Date Recorded Sex Assigned at Not on file Legal Sex Male 9:37 AM EST Gender Identity Not on file Sexual Orientation Not on file documented as of this encounter Plan of Treatment Upcoming Encounters Date Type Department Care Team (Late st Contact Info) Description 01/21/2025 9:00 AM EST Office Visit [facility] [address] [place] [phone] Siddhartha Huff MD [address] [place] [address] documented as of this encounter Procedures Procedure Name Priority Date/Time Associated Diagnosis Comments CT CHEST WO CON 11/28/2023 6:47 AM EDT documented in this encounter Results * CT CHEST WO CON (11/28/2023 6:47 AM EDT) Anatomical Region Laterality Modality Other 11/28/2023 6:47 AM EDT Narrative 11/28/2023 6:50 AM EDT The [address] [address] [address] Scan Report Signed Patient: DREW HODGE MR#: [id number] : 1970 Acct:[id number] Age/Sex: 53 / M ADM Date: 11/27/23 Loc: CT Attending Dr: Arleth Espino D.O. Ordering Physician: Arleth Espino D.O. Date of Service: 11/27/23 Procedure(s): CT chest wo con Accession Number(s): [id number] cc: Siddhartha Huff M.D. The [address] [address] Patient Name: DREW HODGE MRN: [id number] date: 1970 Sex: M Assigned Patient Location: CT Current Patient Location: Accession/Order Number: [id number] Exam Date: 11/27/2023 09:00 Report Date: 11/28/2023 06:47 At the request of: ARLETH ESPINO Procedure: CT chest wo con EXAMINATION: CT chest wo con HISTORY: Abnormal Findings On Lung Field R91.8 COMPARISON: CT chest 06/04/2023, 03/01/2023 TECHNIQUE: Axial, Coronal, and Sagittal images were created without the administration of IV contrast material. Dose reduction techniques were achieved by using automated exposure control and/or adjustment of mA and/or kV according to patient size and/or use of iterative reconstruction technique. FINDINGS: LUNGS: Emphysematous versus extensive bullous changes bilaterally. Mild bronchiectasis. Stable scattered patchy/nodular opacities. PLEURA: No mass, effusion, or pneumothorax. VASCULATURE: No abnormality. WILMAR: No mass or pathologic adenopathy. MEDIASTINUM: No mass or pathologic adenopathy. CARDIAC: No enlargement, pericardial thickening, or pericardial effusion. Coronary Artery calcifications: AORTA: No aneurysm or dissection. CHEST WALL: No mass or axillary adenopathy BONES: No bone lesion or fracture. LIMITED ABDOMEN: No suspicious findings. Limited images of the upper abdomen. OTHER: Negative. CT/CT chest wo con IMPRESSION: 1. Stable emphysematous/bullous changes. 2. Stable bronchiectasis. 3. Stable scattered patchy/nodular opacities; nonspecific. Additional follow-up in one year to document continued stability should be considered. Electronically authenticated by: DOT MARTIN Date: 11/28/2023 06:47 Dictated By: Dot Martin M.D. Signed By: 11/28/23 0650 DD/ 0647 TD/TT: Materials Specialist: Procedure Note Radiology, Radiologist, MD - 11/28/2023 [place] [address] CT Scan Report Signed Patient: DREW HODGE [facility]#: [id number] : 1970Acct:[id number] Age/Sex: 53 / MADM Date: 11/27/23 Loc: CT Attending Dr: Arleth Espino D.O. Ordering Physician: Arleth Espino D.O. Date of Service: 11/27/23 Procedure(s): CT chest wo con Accession Number(s): [id number] cc: Siddhartha Huff M.D. The [place] [address] Patient Name: DREW HODGE MRN: [id number] date: 1970 Sex: M Assigned Patient Location: CT Current Patient Location: Accession/Order Number: [id number] Exam Date: 11/27/2023 09:00 Report Date: 11/28/2023 06:47 At the request of: ARLETH ESPINO Procedure: CT chest wo con EXAMINATION: CT chest wo con HISTORY: Abnormal Findings On Lung Field R91.8 COMPARISON: CT chest 06/04/2023, 03/01/2023 TECHNIQUE: Axial, Coronal, and Sagittal images were created without the administration of IV contrast material. Dose reduction techniques were achieved by using automated exposure control and/or adjustment of mA and/or kV according to patient size and/or use of iterative reconstruction technique. FINDINGS: LUNGS: Emphysematous versus extensive bullous changes bilaterally. Mild bronchiectasis. Stable scattered patchy/nodular opacities. PLEURA: No mass, effusion, or pneumothorax. VASCULATURE: No abnormality. WILMAR: No mass or pathologic adenopathy. MEDIASTINUM: No mass or pathologic adenopathy. CARDIAC: No enlargement, pericardial thickening, or pericardial effusion. Coronary Artery calcifications: AORTA: No aneurysm or dissection. CHEST WALL: No mass or axillary adenopathy BONES: No bone lesion or fracture. LIMITED ABDOMEN: No suspicious findings. Limited images of the upperabdomen. OTHER: Negative. CT/CT chest wo con IMPRESSION: 1. Stable emphysematous/bullous changes. 2. Stable bronchiectasis. 3. Stable scattered patchy/nodular opacities; nonspecific. Additional follow-up in one year to document continued stability should be considered. Electronically authenticated by: DOT MARTIN Date: 11/28/2023 06:47 Dictated By: Dot Martin M.D. Signed By:11/28/23 0650 DD/ 0647 TD/TT: Materials Specialist: Generic External Data Provider [facility] Final Result documented in this encounter Visit Diagnoses Not on filedocumented in this encounter Care Teams Hub Cutter Relationship Specialty Start Date End Date Siddhartha Huff MD [address] [place] [address] PCP - General Family Medicine 06/22/23 Siddhartha Huff MD [address] [place] [address] [facility] 12/18/23 documented as of this encounter
--- OUTSIDE RECORDS SUMMARY | 2024-09-03 12:57 | XMS_ITS | Encounter Summary ---
Author Organization [facility] Address [address] [place] [address] Care Team Providers Care Collections Officer Name Role Phone Siddhartha Huff MD Primary Care Provider [phone] Siddhartha Huff MD Primary Care Provider [phone] Siddhartha Huff MD Unavailable Encounter Details Date Type Department Care Team (Late st Contact Info) Description 06/04/2023 Clinisync Result Encounter [facility] External Department Unsolicited Provider, Generic External Data Social History Tobacco Use Types Packs/Day Years Used Date Smoking Tobacco: Never Assessed Sex and Gender Information Value Date Recorded Sex Assigned at Not on file Legal Sex Male 9:37 AM EST Gender Identity Not on file Sexual Orientation Not on file documented as of this encounter Plan of Treatment Upcoming Encounters Date Type Department Care Team (Late st Contact Info) Description 01/21/2025 9:00 AM EST [facility] [address] [place] [address] Siddhartha Huff MD [address] [place] [address] documented as of this encounter Procedures Procedure Name Priority Date/Time Associated Diagnosis Comments CT CHEST WO CON 06/04/2023 3:27 PM EDT documented in this encounter Results * CT CHEST WO CON (06/04/2023 3:27 PM EDT) Anatomical Region Laterality Modality Other 06/04/2023 3:27 PM EDT Narrative 06/04/2023 3:29 PM EDT [facility] [place] [facility] [id number] CT Scan Report Signed Patient: DREW HODGE MR#: [id number] : 1970 Acct:[id number] Age/Sex: 53 / M ADM Date: 06/04/23 Loc: CT Attending Dr: Darshan Espino D.O. Ordering Physician: Darshan Espino D.O. Date of Service: 06/04/23 Procedure(s): CT chest wo con Accession Number(s): [id number] cc: Siddhartha Huff M.D. [facility] [place] [id number] Patient Name: DREW HODGE MRN: [id number] date: 1970 Sex: M Assigned Patient Location: CT Current Patient Location: CT Accession/Order Number: [id number] Exam Date: 06/04/2023 12:55 Report Date: 06/04/2023 15:27 At the request of: DARSHAN ESPINO Procedure: CT chest wo con EXAMINATION: CT chest wo con HISTORY: Mass Of Upper Lobe Of Left Lung R91.8 COMPARISON: No relevant comparison available. TECHNIQUE: Multi-planar CT images were created with IV contrast. Axial, Coronal, and Sagittal images. Dose reduction techniques were achieved by using automated exposure control and/or adjustment of mA and/or kV according to patient size and/or use of iterative reconstruction technique. FINDINGS: LUNGS: Moderate diffuse centrilobular and paraseptal emphysema with an upper lobe predominance. Scattered areas of bronchiectasis and subcentimeter density. Irregular mildly spiculated nodule identified in the left upper lobe measuring 2.5 x 1.1 cm in axial image #29, stable from the prior exam. No new pulmonary nodule or mass. PLEURA: No mass, effusion, or pneumothorax. VASCULATURE: No abnormality. WILMAR: No mass or adenopathy. MEDIASTINUM: No mass or adenopathy. CARDIAC: No enlargement, pericardial thickening, or significant calcification. AORTA: No aneurysm or dissection. CHEST WALL: No mass or axillary adenopathy. BONES: No bone lesion or fracture. LIMITED ABDOMEN: No suspicious findings. Limited images of the upper abdomen. OTHER: Negative. CT/CT chest wo con IMPRESSION: Stable emphysema Stable scattered pulmonary nodules with the largest solid nodule in the left upper lobe measuring 2.5 x 1.1 cm Electronically authenticated by: JOHN ARBOLEDA Date: 06/04/2023 15:27 Dictated By: John Arboleda M.D. Signed By: 06/04/23 1529 DD/ 152 TD/TT: Brass Cutter: Procedure Note Radiology, Radiologist, MD - 06/04/2023 [place] [address] CT Scan Report Signed Patient: DREW HODGE SMR#: [id number] : 1970Acct:[id number] Age/Sex: 53 / MADM Date: 06/04/23 Loc: CT Attending Dr: Darshan Espino D.O. Ordering Physician: Darshan Espino D.O. Date of Service: 06/04/23 Procedure(s): CT chest wo con Accession Number(s): [id number] cc: Siddhartha Huff M.D. [facility] [place] [facility] [id number] Patient Name: DREW HODGE MRN: [id number] date: 1970 Sex: M Assigned Patient Location: CT Current Patient Location: CT Accession/Order Number: [id number] Exam Date: 06/04/2023 12:55 Report Date: 06/04/2023 15:27 At the request of: DARSHAN ESPINO Procedure: CT chest wo con EXAMINATION: CT chest wo con HISTORY: Mass Of Upper Lobe Of Left Lung R91.8 COMPARISON: No relevant comparison available. TECHNIQUE: Multi-planar CT images were created with IV contrast. Axial, Coronal, and Sagittal images. Dose reduction techniques were achieved byusing automated exposure control and/or adjustment of mA and/or kV according to patient size and/or use of iterative reconstruction technique. FINDINGS: LUNGS: Moderate diffuse centrilobular and paraseptal emphysema with anupper lobe predominance. Scattered areas of bronchiectasis and subcentimeter density. Irregular mildly spiculated nodule identified in the left upper lobemeasuring 2.5 x 1.1 cm in axial image #29, stable from the prior exam. No newpulmonary nodule or mass. PLEURA: No mass, effusion, or pneumothorax. VASCULATURE: No abnormality. WILMAR: No mass or adenopathy. MEDIASTINUM: No mass or adenopathy. CARDIAC: No enlargement, pericardial thickening, or significantcalcification. AORTA: No aneurysm or dissection. CHEST WALL: No mass or axillary adenopathy. BONES: No bone lesion or fracture. LIMITED ABDOMEN: No suspicious findings. Limited images of the upperabdomen. OTHER: Negative. CT/CT chest wo con IMPRESSION: Stable emphysema Stable scattered pulmonary nodules with the largest solid nodule in theleft upper lobe measuring 2.5 x 1.1 cm Electronically authenticated by: JOHN ARBOLEDA Date: 06/04/2023 15:27 Dictated By: John Arboleda M.D. Signed By:06/04/23 1529 DD/ 1527 TD/TT: Brass Cutter: Generic External Data Provider [facility] Final Result documented in this encounter Visit Diagnoses Not on filedocumented in this encounter Care Teams Collections Officer Relationship Specialty Start Date End Date Siddhartha Huff MD PCP - General Family Medicine 01/17/23 06/21/23 Siddhartha Huff MD [address] [place] [address] PCP - General Family [facility] 06/22/23 Siddhartha Huff MD [address] [place] [address] PCP - [facility] 12/18/23 documented as of this encounter
--- OUTSIDE RECORDS SUMMARY | 2024-09-03 12:58 | XMS_ITS | Clinical Summary ---
Author Organization [facility] Address [address] [place] [address] Phone Care Team Providers Care Optical Engineering Manager Name Role Phone Unavailable Primary Care Provider Unavailabl e Social History Tobacco Use Types Packs/Day Years Used Date Smoking Tobacco: Never Assessed Sex and Gender Information Value Date Recorded Sex Assigned at Not on file Legal Sex Male 2:37 PM EDT Gender Identity Not on file Sexual Orientation Not on file Last Filed Vital Signs Vital Sign Reading Time Taken Comments Blood Pressure - - Pulse - - Temperature - - Respiratory Rate - - Oxygen Saturation - - Inhaled Oxygen Concentration - - Weight 80 kg (176 lb 5.9 oz) 09/06/2022 10:51 AM EDT Height 170.1 cm (5' 6.97 ) 09/06/2022 10:51 AM E DT Body Mass Index 27.65 09/06/2022 10:51 AM EDT Plan of Treatment Health Maintenance Due Date Last Done Comments CT Colonography 1970 Colonoscopy 1970 Colorectal Cancer Screening 1970 FIT-DNA (Cologuard) 1970 FIT 1970 HIV Screening 1970 Lipid Panel 1970 Sigmoidoscopy 1970 Yearly Adult Physical 1970 MMR Vaccines (1 of 1 - Stand betzaida series) 1969 Diabetes Screening 1986 Hepatitis C Screening 1986 Hepatitis B Vaccines (1 of 3 - 19+ 3-dose series) 1987 DTaP/Tdap/Td Vaccines (1 - Tdap) 1990 Pneumococcal Vaccine (1 of 1 - PCV) 2018 Zoster Vaccines (1 of 2) 2018 COVID-19 Vaccine ( - 2023-2 5 season) 2023 Influenza Vaccine (Season Ended) 2024 HIB Vaccines Aged Out No longer eligi ble based on patient's age to complete this topic HPV Vaccines Aged Out No longer eligi ble based on patient's age to complete this topic Hepatitis A Vaccines Aged Out No long er eligible based on patient's age to complete this topic IPV Vaccines Aged Out No longer eligi ble based on patient's age to complete this topic Meningococcal Vaccine Aged Out No radha thania eligible based on patient's age to complete this topic Rotavirus Vaccines Aged Out No longer eligible based on patient's age to complete this topic
--- OUTSIDE RECORDS SUMMARY | 2024-09-03 12:58 | XMS_ITS | Encounter Summary ---
Author Organization [facility] Address [address] [place] [address] Care Team Providers Care Clerical Assistant Name Role Phone Siddhartha Huff MD Primary Care Provider [phone] Siddhartha Huff MD Unavailable Encounter Details Date Type Department Care Team (Late st Contact Info) Description 08/26/2024 [facility]am[employer] Arrayso flowsheet [facility] [address] [facility] [address] [place] [address] Jono Heller, PT [address] [place] [address] Social History Tobacco Use Types Packs/Day Years [...] often do you attend chur ch or protestant services? Never 07/24/2023 Do you belong to any clubs o r organizations such as orthodoxy groups, unions, fraternal or athletic groups, or [...] housing, medical care, and heating? Hard 07/24/2023 [facility]ational Stress Questionnaire Answer Date Recorded [...] place to sleep or slept in a residential (including now)? No 07/24/2023 Sex and Gender [...] Visit [facility] [address] [place] [address] Siddhartha Huff MD [address] [place] [address] documented as of this encounter Visit Diagnoses Not on filedocumented in this encounter Care Teams Clerical Assistant Relationship Specialty Start Date End Date Siddhartha Huff MD [address] [place] [address] PCP - General Family Medicine 06/22/23 Siddhartha Huff MD [address] [place] [address] PCP - [facility] 12/18/23 documented as of this encounter
--- OUTSIDE RECORDS SUMMARY | 2024-09-03 12:58 | XMS_ITS | Encounter Summary ---
Author Organization [facility] Address [address] [place] [address] Care Team Providers Care Plumber Gasfitter Name Role Phone Siddhartha Huff MD Primary Care Provider [phone] Siddhartha Huff MD Unavailable Encounter Details Date Type Department Care Team (Latest Contact Info) Description 08/26/2024 Travel Social History Tobacco Use Types Packs/Day Years [...] often do you attend chur ch or mu-ism services? Never 07/24/2023 Do you belong to any clubs o r organizations such as zoroastrian groups, unions, fraternal or athletic groups, or [...] housing, medical care, and heating? Hard 07/24/2023 [facility] - Occupational Stress Questionnaire Answer Date [...] place to sleep or slept in a jail (including now)? No 07/24/2023 Sex and Gender Information Value Date Recorded Sex Assigned at Not on file Legal Sex Male 9:37 AM EST Gender Identity Not on file Sexual Orientation Not on file documented as of this encounter Plan of Treatment Upcoming Encounters Date Type Department Care Team (Late st Contact Info) Description 01/21/2025 9:00 AM EST Office Visit [facility] [address] [place] [address] Siddhartha Huff MD [address] [place] [address] documented as of this encounter Visit Diagnoses Not on filedocumented in this encounter Care Teams Plumber Gasfitter Relationship Specialty Start Date End Date Siddhartha Huff MD [address] [place] [address] PCP - General Family Medicine 06/22/23 Siddhartha Huff MD [address] [place] [address] PCP - [facility] 12/18/23 documented as of this encounter
--- OUTSIDE RECORDS SUMMARY | 2024-09-03 12:58 | XMS_ITS | Clinical Summary ---
Author Organization [facility] Healthcare Address [address] [place] [address] Care Team Providers Care Rheumatologist Name Role Phone Siddhartha Huff MD Primary Care Provider [phone] Siddhartha Huff MD Unavailable Allergies No known active allergies Medications Budeson-Glycopy rrol-Formoterol (Breztri Aerosphere) 160-9-4.8 MCG/ACT aerosol every 12 (twelve) hours 06/13/19 24 Active Ventolin HFA 108 (90 Base) MCG/ACT inhaler Inhale 2 puffs every 4 (four) hours if needed Active albuterol (2.5 MG/3ML) 0.083% nebulizer solution INHALE 3ml BY MOUTH via NEBULIZER FOUR TIMES DAILY 06/06/19 24 Active aspirin 81 MG EC tablet Take 81 mg by mouth in the morning. Active methocarbamol (Robaxin) 750 MG tablet Take 750 mg by mouth 4 (four) times a day as needed 05/03/19 24 Active rosuvastatin (Crestor) 20 MG tablet Take 20 mg by mouth in the morning. Active carvedilol (Coreg) 3.125 MG tablet Take 3.125 mg by mouth in the morning and 3.125 mg in the evening. Take with meals. 06/28/19 24 Active buPROPion XL (Wellbutrin XL) 300 MG 24 hr tabletIndicatio ns:MDD (major depressive disorder), recurrent episode, moderate (HCC) Take 1 tablet (300 mg) by mouth Daily 01/21/20 24 Active levothyroxine (Synthroid, Levoxyl) 112 MCG tabletIndicatio ns:Hypothyroidi sm, unspecified TAKE 1 TABLET BY MOUTH DAILY 90 tablet 3 06/13/19 25 Active omeprazole (PriLOSEC) [address] capsuleIndicati ons:Gastroesoph ageal reflux disease without esophagitis TAKE 1 CAPSULE BY MOUTH IN THE MORNING BEFORE MEALS * DO NOT CRUSH OR CHEW * 30 capsule 5 07/15/19 25 Active tamsulosin (Flomax) 0.4 MG 24 hr capsuleIndicati ons:BPH associated with nocturia TAKE 1 CAPSULE BY MOUTH DAILY 30 capsule 5 07/15/19 25 Active citalopram (CeleXA) 40 MG tabletIndicatio ns:MDD (major depressive disorder), recurrent episode, moderate (HCC) TAKE 1 TABLET BY MOUTH DAILY 30 tablet 5 07/15/19 25 Active fluticasone (Flonase) 50 MCG/ACT nasal sprayIndication s:Dysfunction of left eustachian tube instill 2 (TWO) spray IN EACH NOSTRIL DAILY 16 g 2 08/13/19 25 Active fluticasone (Flonase) 50 MCG/ACT nasal sprayIndication s:Dysfunction of left eustachian tube instill 2 (TWO) sprays IN EACH NOSTRIL DAILY; shake gently; BEFORE first use, prime pump; after use clean tip and replace cap 16 g 2 05/14/19 25 025 Discontinued traMADol (Ultram) 50 MG tabletIndicatio ns:Chronic neck pain Take 1 tablet (50 mg) by mouth 4 (four) times a day as needed for severe pain 120 tablet 07/22/19 25 025 Active Problems Problem Noted Date Diagnosed Date Chronic neck pain 07/21/2024 Assessment & Plan (07/21/2024 9:28 AM EDT): Pain unchanged and follow with specialists. Use ultram PRN. Gastroesophageal reflux disease without esophagi tis 01/21/2024 Assessment & Plan (07/21/2024 9:30 AM EDT): Symptoms controlled with medication and continue. Assessment & Plan (01/21/2024 9:40 AM EST): Frequent symptoms and start omeprazole. Encounter for long-term current use of medicatio n 01/21/2024 Screening PSA (prostate specific antigen) 2023 Non-occlusive coronary artery disease 07/25/2023 Assessment & Plan (01/21/2024 9:41 AM EST): No pain and follow with cardiology. Assessment & Plan (07/25/2023 9:37 AM EDT): No pain and continue medication. Follow up with cardiology. MDD (major depressive disord er), recurrent episode, moderate 07/25/2023 Assessment & Plan (07/21/2024 9:30 AM EDT): Symptoms controlled with medication and continue. Assessment & Plan (01/21/2024 9:41 AM EST): Symptoms controlled with medication and continue. Assessment & Plan (07/25/2023 9:37 AM EDT): Worsening symptoms and increase celexa. Warned will take 2-3 weeks to notice improvement in mood. Continue wellbutrin. BPH associated with nocturia 07/25/2023 Assessment & Plan (07/25/2023 9:36 AM EDT): Increased urinary symptoms and try flomax. PSA normal in January. COPD (chronic obstructive pulmonary disease) 07/2023 Assessment & Plan (07/21/2024 9:30 AM EDT): Breathing stable and continue inhalers. Follow up with pulmonology. Assessment & Plan (01/21/2024 9:40 AM EST): Breathing stable and continue inhalers. Follow up with pulmonology. Assessment & Plan (07/25/2023 9:36 AM EDT): Breathing stable and continue inhalers. Follow up with pulmonology. Dyslipidemia 06/22/2023 Generalized anxiety disorder 06/22/2023 Assessment & Plan (07/21/2024 9:30 AM EDT): Symptoms controlled with medication and continue. Assessment & Plan (01/21/2024 9:41 AM EST): Symptoms controlled with medication and continue. Assessment & Plan (07/25/2023 9:37 AM EDT): Worsening symptoms and increase celexa. Warned will take 2-3 weeks to notice improvement in mood. Continue wellbutrin. Assessment & Plan (06/22/2023 10:44 AM EDT): Symptoms controlled with medication and continue. Adult hypothyroidism 06/22/2023 Assessment & Plan (01/21/2024 9:40 AM EST): No signs of low thyroid and continue medication. Assessment & Plan (07/25/2023 9:36 AM EDT): No signs of low thyroid and continue medication. Prediabetes 06/22/2023 Vitamin D deficiency 06/22/2023 Dysfunction of left eustachian tube 06/22/2023 Assessment & Plan (06/22/2023 10:44 AM EDT): No wax and fluid behind TM. Treat with prednisone and start flonase. If no improvement may need ENT referral. Encounters Date Type Department Care Team Description 08/26/2024 11:30 AM EDT Treatment [facility] [address] [facility] [address] [place] [address] Jono Heller T, PT Left cervical radiculopathy (Primary Dx); Muscle left arm weakness 08/26/2024 Bamboo flowsheet [facility] [address] [place] [address] [place] [address] Jono Heller, PT 08/26/2024 Travel 08/13/2024 3:30 PM EDT Treatment [facility] [address] [address] [place] [address] Jono Heller, PT Left cervical radiculopathy (Primary Dx); Muscle left arm weakness 08/13/2024 Bamboo flowsheet [facility] [address] [place] [address] Jono Heller, PT 08/13/2024 Travel 08/10/2024 Refill [facility] [address] [place] [address] Siddhartha Huff MD Dysfunction of left eustachian tube 08/08/2024 1:00 PM EDT Treatment [facility] [address] [place] [address] Tarun Abdi, [employer] OF [employer] Left cervical radiculopathy (Primary Dx); Muscle left arm weakness 08/08/2024 Bamboo flowsheet [facility] [address] [place] [address] Tarun Abdi, [employer] OF [employer] 08/08/2024 Travel 08/06/2024 1:00 PM EDT Treatment [facility] [address] [facility] [address] [place] [address] Raúl Romero, [employer] Left cervical radiculopathy (Primary Dx); Muscle left arm weakness 08/06/2024 Bamboo flowsheet [facility] [address] [place] [address] Raúl Romero, [employer] OF [employer] 08/06/2024 Travel 08/04/2024 1:00 PM EDT Treatment [facility] [address] [place] [address] Chiqui Guallpa, [employer] Left cervical radiculopathy (Primary Dx); Muscle left arm weakness 08/04/2024 Bamboo flowsheet [facility] [address] [place] [address] Chiqui Guallpa, [employer] OF [employer] 08/04/2024 Travel 07/30/2024 Plan of Care Documentation [facility] [address] [place] [address] 07/29/2024 3:00 PM EDT Evaluation [facility] [address] [place] [address] Jono Heller, PT Left cervical radiculopathy (Primary Dx); Muscle left arm weakness 07/29/2024 Bamboo flowsheet [facility] [address] [place] [address] Jono Heller, PT 07/29/2024 Travel 07/28/2024 Travel 07/21/2024 9:00 AM EDT Office Visit [facility] [address] [place] [address] Siddhartha Huff MD MDD (major depressive disorder), recurrent episode, moderate (HCC) (Primary Dx); Generalized anxiety disorder ; Chronic obstructive pulmonary disease, unspecified COPD type (HCC); Gastroesophageal reflux disease without esophagitis; Chronic neck pain 07/21/2024 Bamboo flowsheet [facility] [address] [place] [address] Siddhartha Huff MD 07/20/2024 Travel 07/11/2024 Refill [facility] [address] [place] [address] Siddhartha Huff MD Gastroesophageal reflux disease without esophagitis; BPH associated with nocturia; MDD (major depressive disorder), recurrent episode, moderate (HCC) 07/01/2024 Clinisync Result Encounter [facility] External Department Unsolicited Provider, Generic External Data 06/16/2024 Orders Only [facility] [address] [place] [address] Siddhartha Huff MD Neck pain (Primary Dx) 06/16/2024 Refill [facility] [address] [place] [address] Siddhartha Huff MD Neck pain 06/16/2024 Patient Outreach [facility] [place] [address] [place] [address] Everardo Herring MA 06/12/2024 Refill [facility] [address] [place] [address] Siddhartha Huff MD Hypothyroidism, unspecified 06/10/2024 Telephone [facility] [address] [place] [address] Siddhartha Huff MD Med Refill from Last 3 Months Social History Tobacco Use Types Packs/Day Years Used Date Smoking Tobacco: Former Cigarettes 1 35 0 04/19/1988 - 04/19/2023 Smokeless Tobacco: Never Tobacco Cessation:Counseling Given: Not Answered Social Connection and Isolat ion Panel [NHANES] Answer Date Recorded In a typical week, how many times do you talk on the phone with family, friends, or neighbors? More than three times a week 07/24/2023 How often do you get togethe r with friends or relatives? Once a week 07/24/2023 How often do you attend [facility] or jehovah's witness services? Never 07/24/2023 Do you belong to any clubs o r organizations such as samaritan groups, unions, fraternal or athletic groups, or [...] housing, medical care, and heating? Hard 07/24/2023 [facility] [place] [facility] Occupat ional Health - Occupational Stress [...] place to sleep or slept in a intermediate (including now)? No 07/24/2023 Sex and Gender Information Value Date Recorded Sex Assigned at Not on file Legal Sex Male 9:37 AM EST Gender Identity Not on file Sexual Orientation Not on file Last Filed Vital Signs Vital Sign Reading Time Taken Comments Blood Pressure 140/82 07/21/2024 8:58 AM EDT Pulse 65 07/21/2024 8:58 AM EDT Temperature 36.2 C (97.1 F) 07/21/2024 8:58 AM EDT Respiratory Rate 18 07/21/2024 8:58 AM EDT Oxygen Saturation 93% 07/21/2024 8:58 AM EDT Inhaled Oxygen Concentration - - Weight 73.5 kg (162 lb) 07/21/2024 8:58 AM EDT Height 172.7 cm (5' 8 ) 07/21/2024 8:58 AM EDT Body Mass Index 24.63 07/21/2024 8:58 AM EDT Plan of Treatment Upcoming Encounters Date Type Department Care Team (Late st Contact Info) Description 01/21/2025 9:00 AM EST Office Visit [facility] [address] [place] [address] Siddhartha Huff MD [address] [place] [address] Health Maintenance Due Date Last Done Comments CT Colonography 1968 FIT-DNA 1968 FIT 1968 FOBT 1970 Lung Cancer Screening Shared Decision Making 9 Sigmoidoscopy 1970 Influenza Vaccine (Season Ended) 2024 Colonoscopy 04/25/2031 04/25/2021 Colorectal Cancer Screening 04/25/2031 Procedures Procedure Name Priority Date/Time Associated Diagnosis Comments SHOULDER LEFT W/O 07/01/2024 12:33 PM EDT from Last 3 Months Results * MR SHOULDER LEFT W/O (07/01/2024 12:33 PM EDT) Anatomical Region Laterality Modality Radiographic Francisca ging 07/01/2024 12:3 3 PM EDT Narrative 07/01/2024 12:35 PM EDT [address] [address] Magnetic Resonance Report Signed Patient: ALONA HODGE MR#: [id number] : 1970 Acct:[id number] Age/Sex: 54 / M ADM Date: 07/01/24 Loc: MRI Attending Dr: Brad Hernandez M.D. Ordering Physician: Brad Hernandez M.D. Date of Service: 07/01/24 Procedure(s): shoulder LT wo con Accession Number(s): [id number] cc: Brad Hernandez M.D.; Siddhartha Huff M.D. [address] [address] Patient Name: ALONA HODGE MRN: [id number] date: 1970 Sex: M Assigned Patient Location: MRI Current Patient Location: MRI Accession/Order Number: [id number] Exam Date: 07/01/2024 12:27 Report Date: 07/01/2024 12:33 At the request of: BRAD HERNANDEZ MD Procedure: MR shoulder LT wo con MRI left Shoulder without contrast TECHNIQUE: Multiplanar T1 and T2-weighted imaging obtained without contrast. HISTORY: Acute left shoulder pain with radiation to the neck COMPARISON: Plain film left shoulder 06/13/2024 BONE MARROW EDEMA: None FRACTURE: None AC JOINT: Acromioclavicular marginal spurring. Effacement of supraspinatus. Joint effusion. Subchondral bone marrow edema. Adjacent soft tissue edema. SHOULDER ROOF LIGAMENTS: The coracoacromial and coracoclavicular ligaments are intact. ROTATOR CUFF: Heterogeneous signal changes of supraspinatus tendon consistent with mild to moderate tendinosis. No retracted full-thickness tear. Intact infraspinatus. Intact teres minor. Intact subscapularis tendon. Mild cystic changes of the greater tuberosity. ROTATOR CUFF INTERVAL: Unremarkable BURSAL FLUID: No subacromial subdeltoid bursal fluid identified. GLENOID: Intact BICEPS LABRAL COMPLEX: Intact LONG HEAD OF BICEPS TENDON: Intact GLENOHUMERAL LIGAMENTS: The superior glenohumeral ligament is intact. The middle glenohumeral ligament is intact. The anterior and posterior glenohumeral ligaments are intact. JOINT EFFUSION: No significant joint effusion is seen. MUSCLES: Normal signal intensity of the muscles. NO SUBCUTANEOUS TISSUES: No subcutaneous abnormalities identified. MR/MR shoulder LT wo con IMPRESSION: Acromioclavicular arthrosis with inferior marginal spurring effacing the supraspinatus. Mild to moderate tendinosis of supraspinatus tendon. No retracted full-thickness tear of rotator cuff. Impression dictated by: Hayden Hurd M.D.07/01/2024 12:33 PM Dictation Location: [place] [address] Electronically authenticated by: [id number] Y Date: 07/01/2024 12:33 Dictated By: Hayden Hurd D.O. 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#: [id number] : 1970Acct:[id number] Age/Sex: 54 / MADM Date: 07/01/24 Loc: MRI Attending Dr: Brad Hernandez M.D. Ordering Physician: Brad Hernandez M.D. Date of Service: 07/01/24 Procedure(s): MR shoulder LT wo con Accession Number(s): [id number] cc: Brad Hernandez M.D.; Siddhartha Huff M.D. The [place] [address] Patient Name: ALONA HODGE MRN: [id number] date: 1970 Sex: M Assigned Patient Location: MRI Current Patient Location: MRI Accession/Order Number: [id number] Exam Date: 07/01/2024 12:27 Report Date: 07/01/2024 12:33 At the request of: BRAD HERNANDEZ MD Procedure: MR shoulder LT wo con MRI left Shoulder without contrast TECHNIQUE: Multiplanar T1 and T2-weighted imaging obtained withoutcontrast. HISTORY: Acute left shoulder pain with radiation to the neck COMPARISON: Plain film left shoulder 06/13/2024 BONE MARROW EDEMA: None FRACTURE: None AC JOINT: Acromioclavicular marginal spurring. Effacement ofsupraspinatus. Joint effusion. Subchondral bone marrow edema. Adjacent soft tissueedema. SHOULDER ROOF LIGAMENTS: The coracoacromial and coracoclavicularligaments are intact. ROTATOR CUFF: Heterogeneous signal changes of supraspinatus tendonconsistent with mild to moderate tendinosis. No retracted full-thickness tear.Intact infraspinatus. Intact teres minor. Intact subscapularis tendon. Mildcystic changes of the greater tuberosity. ROTATOR CUFF INTERVAL: Unremarkable BURSAL FLUID: No subacromial subdeltoid bursal fluid identified. GLENOID: Intact BICEPS LABRAL COMPLEX: Intact LONG HEAD OF BICEPS TENDON: Intact GLENOHUMERAL LIGAMENTS: The superior glenohumeral ligament is intact.The middle glenohumeral ligament is intact. The anterior and posterior glenohumeral ligaments are intact. JOINT EFFUSION: No significant joint effusion is seen. MUSCLES: Normal signal intensity of the muscles. NO SUBCUTANEOUS TISSUES: No subcutaneous abnormalities identified. MR/MR shoulder LT wo con IMPRESSION: Acromioclavicular arthrosis with inferior marginal spurring effacing the supraspinatus. Mild to moderate tendinosis of supraspinatus tendon. No retracted full-thickness tear of rotator cuff. Impression dictated by: Hayden Hurd M.D.07/01/2024 12:33 PM Dictation Location: [place] [address] Electronically authenticated by: [id number] Y Date: 2:33 Dictated By: Hayden Hurd D.O. 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
--- OUTSIDE RECORDS SUMMARY | 2024-09-03 12:58 | XMS_ITS | Patient Health Record ---
Author Organization [facility] Address [address] [place] [address] Care Team Providers Care Proof Coin Collector Name Role Phone Siddhartha Huff Primary Care Provider Brad Luke Unavailable [phone] Zoe Isaac Unavailable [phone] Allergies No Known Allergies Results Component Value Reference Range Notes SCC- CERVICAL 4 VIEW Reviewed date:08/19/2024 09:42:59 AM Interpretation: Performing Lab: Notes/Report: Reason For Referral Reason DENIED...........PLE ASE OBTAIN AUTHORIZATION FOR MRI CERVICAL SPINE Diagnosis 1 Cervical radiculopat hy (M54.12) Referral Organization [facility] Referring Provider First Name Brad Referring Provider Last Name Lilian Referring Provider Speciality Orthopedic Surgery Referred Organization [facility] Referred Address [place], [place], Procedure 1 MRI Cervical w/o dye ([id number]) General Notes Julia Elise 025 12:44:55 PM >PENDING [facility] TRX #[id number], Julia Elise 06/24/2024 07:43:01 AM >STILL PENDINGArik Amy 06/25/2024 07:42:39 AM >STILL PENDINGArik Amy 06/26/2024 08:47:32 AM >STILL PENDINGArik Amy 06/27/2024 07:26:14 AM >STILL PENDINGArik Amy 06/30/2024 09:18:17 AM >STILL PENDINGArik Amy 07/01/2024 07:52:43 AM >STILL PENDINGArik Amy 07/02/2024 10:49:04 AM >STILL PENDINGArik Amy 07/03/2024 07:25:49 AM >DENIED PER [facility]. , , Denial Rationale, The notes sent do [...] the home exercise plan and days performed). DETAILED COPY IN CHART M Tri RENDON Monica 07/09/2024 07:49:14 AM > contacted patient. he has not done any type of therapy. printed for SCC.Tri Monica 07/10/2024 09:41:05 AM > PER [facility], HOLD OFF ON CERVICAL MRI. FOLLOW UP FOR SHOULDER Referral Priority Routine Reason APPROVED .......CHEL STARK OBTAIN AUTHORIZATION FOR LEFT SHOULDER MRI Diagnosis 1 Acute pain of left s arvind (M25.512) Referral Organization [facility] Referring Provider First Name [facility] Referring Provider Last Name Austin Referring Provider Speciality Orthopedic Surgery Referred Organization [facility] Referred Address [place], [place], Procedure 1 MRI Joint Upper Ext w/o Dye (49195) General Notes Julia Elise 025 12:40:46 PM >PENDING [facility] TRX #[id number] CLINICAL ATTACHEDArik Amy 06/23/2024 01:37:05 PM >APPROVED PER [facility] AUTH #[id number] VALID 06/23/2024-07/23/2024 COPY IN CHART MA NOTIFIED REF FAXED TO Elias MAS Kimberly 06/23/2024 02:51:54 PM > Faxed order to [facility] Referral Priority Routine Reason DENIED...........ple ase obtain authorization for MRI Cervical Diagnosis 1 Cervical radiculopat hy (M54.12) Referral Organization [facility] Referring Provider First Name Brad Referring Provider Last Name Lilian Referring Provider Speciality Orthopedic Surgery Referred Organization [facility] john Referred Address [place], [place], Procedure 1 MRI Cervical w/o dye (40204) General Notes Julia Elise 025 10:38:58 AM >PENDING [facility] #[id number] CLINICAL ATTACHED, Julia Elise 07/17/2024 07:25:00 AM [...] the home exercise plan and days performed). Kalie Clinical Guideline 040 for Cervical Spine MRI was used to make this decision MA NOTIFIED COPY IN CHART, Ceci Griffin 07/24/2024 08:45:44 AM > Per Dr. Quintana, needs to try PT/OT. Sent order to [facility] in [place] and scheduled a follow up appointment. Referral Priority Routine Reason APPROVED .......PLEA SE OBTAIN AUTHORIZATION FOR MRI CERVICAL Diagnosis 1 Cervical radiculopat hy (M54.12) Referral Organization [facility] Referring Provider First Name Brad Referring Provider Last Name Quintana Referring Provider Speciality Orthopedic Surgery Referred Organization [facility] Garrison lopez Referred Address [place], [place], Procedure 1 MRI Cervical w/o dye (15010) General Notes Julia Elise 025 11:34:37 AM >PENDING [facility] TRX #[id number] NEED DICTATION OF LAST NOTE TO UPLOAD, Ceci Griffin 08/18/2024 02:45:52 PM > Note is complete, Julia Elise 08/18/2024 02:56:09 PM >UPLOADEDArik Amy 08/19/2024 09:10:49 AM >STILL PENDINGArik Amy 08/22/2024 11:28:17 AM >STILL PENDINGArik Amy 08/25/2024 08:45:52 AM >STILL PENDINGArik Amy 08/26/2024 07:42:31 AM >STILL PENDINGArik Amy 08/27/2024 08:02:49 AM >APPROVED PER [facility] AUTH #[id number] VALID 08/18/2024-09/17/2024 COPY IN CHART MA NOTIFIED REF FAXED TO Elias MAS Kimberly 08/27/2024 08:36:34 AM > Faxed order to [facility] Referral Priority Routine Medications Medication SIG (Take, Route, Frequency, Duration) Notes Start Date End Date Status buPROPion Active levothyroxine Active lovastatin Active Mucus Relief Active predniSONE Active doxycycline Active cefdinir Active citalopram Active Social History Tobacco Use: Social History Observation Description Date Details (start date - stop date) Never Smoker NA - NA AUDIT-C (Standard) Question Answer Notes Did you have a drink containing alcohol in the p ast year? No Points 0 Interpretation Negative Tobacco Control (Standard) Question Answer Notes Tobacco use: Nonsmoker Problems Problem Type SNOMED Code ICD Code Onset Dates Problem Status W/U Status Risk Notes Problem [id number] Cervical radiculopathy (M54.12) Active confirmed Vital Signs Height 5'7 in 08/18/2024 Weight 165 lbs 08/18/2024 BMI 25.84 08/18/2024 Encounters Encounter Location Date Provider Diagnosis [facility] [address] [place] [address] 07/14/2024 Brad Quintana Cervical radiculopathy M54.12 [facility] [address] [place] [address] 06/23/2024 Brad Quintana Acute pain of left shoulder M25.512 and Cervical radiculopathy M54.12 [facility] [address] [place] [address] [place] [address] 08/18/2024 Zoe Isaac Cervical radiculopathy M54.12 Assessments Encounter Date Diagnosis (ICD Code) Assessment Notes Treatment Notes Treatment Clinical Notes Section Notes 06/23/2024 Cervical radiculopathy (ICD-10 - M54.12) 06/23/2024 Acute pain of left shoulder (ICD-10 - M25.512) 07/14/2024 Cervical radiculopathy (ICD-10 - M54.12) 08/18/2024 Cervical radiculopathy (ICD-10 - M54.12) Cervical radiculopathy Cervical degenerative disc disease C3 on 4, C4 on 5 dynamic spondylolisthesis 07/14/2024 Other For his significant weakness in his left upper extremity with a normal MRI of his shoulder I have recommended an MRI of his C-spine to evaluate for a large disc herniation causing profound weakness in his left upper arm and the need for surgical intervention. He will follow-up once the MRI of his cervical spine is complete. Import medication 06/23/2024 Other I discussed with the patient that his left shoulder weakness is likely secondary to a rotator cuff tear. Given his cervical radiculopathy I have recommended an MRI scan of his cervical spine as well for further evaluation. He will follow-up once the studies are complete. Import medication 08/18/2024 Other Patient is still having gross weakness in his left shoulder with abduction and forward flexion. He is going to physical therapy but his strength is not improving in the shoulder. Given his findings on the cervical x-rays and weakness in the left shoulder on exam I have ordered an MRI of the cervical spine to further evaluate for cervical neural impingement. I am going to send him to one of our spine partners, Dr. Gaspar for follow-up after his MRI. We will see him back in our clinic for any new or worsening symptoms. Cervical radiculopathy Cervical degenerative disc disease C3 on 4, C4 on 5 dynamic spondylolisthesis Plan Of Treatment Pending Test Test Name Order Date MRI : Shoulder W/O Contrast Left - [id number] 06/23/2024 MRI : Cervical Spine W/O Contrast - 7214 1 08/18/2024 PT/OT - Eval and Treat 07/14/2024 MRI : Cervical Spine W/O Contrast - 7214 1 06/23/2024 Insurance Providers Payer Name Payer Address Payer Phone Subscriber Number Group Number Insured Name Patient Relationship to Insured Coverage Start Date Coverage End Date Medicaid [employer] [place] [address] [facility] [phone] [id number] ALONA PATINO Self - patient is the insured Medical (General) History Medical History History ICD Code Asthma/COPD Respiratory problems: Lung Disease Problems with Anesthesia Heart problems: Hypothyroidism Depression Mental Illness: Anxiety Surgical History Surgery Date(Month/Year) Back surgery
--- OUTSIDE RECORDS SUMMARY | 2024-09-03 12:58 | XMS_ITS | Referral Summary ---
Author Organization [facility] Address [address] [place] [address] Care Team Providers Care Business Line Manager Name Role Phone Siddhartha Huff MD Primary Care Provider [phone] Encounters Date Type Department Care Team Description 07/04/2024 Refill [facility] at [place] [address] [place] [address] Carole Carrillo MA Angina pectoris, unstable (CMS/HCC); Coronary-myocardial bridge from Last 3 Months Allergies No known active allergies Medications citalopram (CeleXA) 20 mg tablet Take 30 mg by mouth in the morning. 3 Active buPROPion XL (Wellbutrin XL) 150 mg 24 hr tablet Take 150 mg by mouth in the morning. 3 Active levothyroxine (Synthroid, Levoxyl) 112 mcg tablet 1 (one) time each day at the same time. 2 Active Ventolin HFA 90 mcg/actuation inhaler Inhale 2 puffs every 4 (four) hours if needed. 3 Active aspirin 81 mg EC tablet Take 81 mg by mouth in the morning. Active Breztri Aerosphere 160-9-4.8 mcg/actuation HFA aerosol inhaler Inhale 2 puffs in the morning and at bedtime. Active tamsulosin (Flomax) 0.4 mg 24 hr capsule Take 0.4 mg by mouth in the morning. Active rosuvastatin (Crestor) 20 mg tabletIndicatio ns:Coronary artery disease due to lipid rich plaque Take 1 tablet (20 mg) by mouth at bedtime. 90 tablet 3 4 11/02/19 25 Active omeprazole (PriLOSEC) [address] capsule Take 40 mg by mouth before breakfast. Active carvedilol (Coreg) 3.125 mg tabletIndicatio ns:Angina pectoris, unstable (CMS/HCC),Coron markel-myocardial bridge Take 1 tablet (3.125 mg) by mouth with breakfast and with evening meal. 180 tablet 3 5 07/05/19 26 Active Active Problems Problem Noted Date Diagnosed Date Encounter for long-term current use of medicatio n 01/21/2024 Gastroesophageal reflux disease without esophagi tis 01/21/2024 Screening PSA (prostate specific antigen) 2023 Atherosclerotic heart diseas e of [place] coronary artery without angina pectoris 07/25/2023 Overview (10/15/2023): Last Assessment & Plan: No pain and continue medication. Follow up with cardiology. BPH associated with nocturia 07/25/2023 Overview (10/15/2023): Last Assessment & Plan: Increased urinary symptoms and try flomax. PSA normal in January. MDD (major depressive disord er), recurrent episode, moderate 07/25/2023 Overview (10/15/2023): Last Assessment & Plan: Worsening symptoms and increase celexa. Warned will take 2-3 weeks to notice improvement in mood. Continue wellbutrin. Dysfunction of left eustachian tube 06/22/2023 Overview (10/15/2023): Last Assessment & Plan: No wax and fluid behind TM. Treat with prednisone and start flonase. If no improvement may need ENT referral. Prediabetes 06/22/2023 Vitamin D deficiency 06/22/2023 Angina pectoris, unstable 05/25/2023 Chronic obstructive pulmonary disease 12/11/2022 12/11/2022 Dyslipidemia 12/11/2022 12/11/2022 Generalized anxiety disorder 12/11/2022 Hyperlipidemia, unspecified 12/11/2022 09/2 07/2022 Hypothyroidism 12/11/2022 12/11/2022 Tobacco use 12/11/2022 12/11/2022 Unspecified symptoms and sig ns involving the musculoskeletal system 12/11/2022 12/11/2022 Social History Tobacco Use Types Packs/Day Years Used Date Smoking Tobacco: Former Cigarettes Smokeless Tobacco: Never Tobacco Cessation:Counseling Given: Not Answered Alcohol Use Standard Drinks/Week Comments Yes 0 (1 standard drink = 0.6 oz pur e alcohol) very occasional [place] Safety & Environment Answer Date Rec orded Fear of Current or Ex-Partner Not on file Emotionally Abused Not on file 05/10/2023 Physically Abused Not on file 05/10/2023 Sexually Abused Not on file 05/10/2023 Physically or Sexually Abused Not on file Sex and Gender Information Value Date Recorded Sex Assigned at Not on file Legal Sex Male 3:52 PM EDT Gender Identity Not on file Sexual Orientation Not on file Last Filed Vital Signs Vital Sign Reading Time Taken Comments Blood Pressure 124/72 04/11/2024 2:31 PM EST Pulse 57 04/11/2024 2:31 PM EST Temperature - - Respiratory Rate 15 06/28/2023 11:00 AM EDT Oxygen Saturation 96% 04/11/2024 2:31 PM EST Inhaled Oxygen Concentration - - Weight 74.8 kg (165 lb) 04/11/2024 2:31 PM EST Height 170.2 cm (5' 7 ) 04/11/2024 2:31 PM EST Body Mass Index 25.84 04/11/2024 2:31 PM EST Plan of Treatment Upcoming Encounters Date Type Department Care Team (Late st Contact Info) Description 09/15/2024 2:30 PM EDT Office Visit [facility] at [facility] [address] [place] [address] Drew Mcclendon MD [address] [facility] [place] [place] [address] Insurance [facility] MEDICAID Care Teams Business Line Manager Relationship Specialty Start Date End Date Siddhartha Huff MD [address] [place] [address] PCP - General 12/11/22
--- OUTSIDE RECORDS SUMMARY | 2024-09-03 12:58 | XMS_ITS | Clinical Summary ---
Author Organization [facility] Address [address] [place] [address] Care Team Providers Care Level Vial Inside Grinder Name Role Phone Siddhartha Huff MD Primary Care Provider [phone] Allergies No known active allergies Medications citalopram [...] antigen) 2023 Atherosclerotic heart diseas e of [place] coronary artery without angina pectoris 07/25/2023 Overview [...] ns involving the musculoskeletal system 12/11/2022 12/11/2022 Encounters Date Type Department Care Team Description 07/04/2024 Refill [facility] [address] [place] [address] Carole Carrillo MA Angina pectoris, unstable (CMS/HCC); Coronary-myocardial bridge from Last 3 Months Family History Medical History Relation Name Comments Heart attack Father pacemaker Father's Brother Heart attack Mother Relation Name Status Comments Father Father's Brother Mother Social History Tobacco Use Types Packs/Day Years [...] Description 09/15/2024 2:30 PM EDT Office Visit [facility] [address] [place] [facility] [address] Drew Mcclendon MD [address] [facility] [address] [facility] [place] [address] Health Maintenance Due Date Last Done Comments CT Colonography 1968 Colonoscopy 1968 Colorectal Cancer Screening 1968 Diabetes: Hemoglobin A1C 1968 FIT-DNA 1968 FIT 1968 FOBT 1968 Sigmoidoscopy 1968 Depression Screening 1980 Hepatitis B Vaccines (1 of 3 - 19+ 3-dose series) 1987 Pneumococcal Vaccine: Pediatrics (0 to 5 Years) and At-Risk Patients (6 to 64 Years) (1 of 2 - PCV) 1987 Adult Tetanus 1990 Zoster Vaccines (1 of 2) 2018 COVID-19 Vaccine ( season) 2023 01/27/2022, 08/09/2021, 01/24/2021, Additional history exists Influenza Vaccine (Season Ended) 2024 HIB Vaccines Aged Out No longer eligi ble based on patient's age to complete this topic HPV Vaccines Aged Out No longer eligi ble based on patient's age to complete this topic IPV Vaccines Aged Out No longer eligi ble based on patient's age to complete this topic Meningococcal B Vaccine Aged Out No l onger eligible based on patient's age to complete this topic Meningococcal Vaccine Aged Out No radha thania eligible based on patient's age to complete this topic Rotavirus Vaccines Aged Out No longer eligible based on patient's age to complete this topic Insurance [facility] MEDICAID Care Teams Level Vial Inside Grinder Relationship Specialty Start Date End Date Siddhartha Huff MD [address] [place] [address] PCP - General 12/11/22
--- OUTSIDE RECORDS SUMMARY | 2024-09-03 12:59 | XMS_ITS | Patient Health Record ---
Author Organization [employer] [facility] Address [address] [place] [address] Care Team Providers Care Equipment Operator/Laborer/Supervisor Name Role Phone Brayan Simon Primary Care Provider Allergies No Known Allergies Reason For Referral No Information Medications Medication SIG (Take, Route, Frequency, Duration) Notes Start Date End Date Status ProAir HFA 108 (90 Base) MCG/ACT 2 puffs as needed every 4 hrs Inhalation Inhalation every 4 hrs for 30 days Active Dulera 200-5 MCG/ACT INHALE 2 PUFFS BY M OUTH TWICE DAILY for 30 Active CeleXA 20 MG 1 tablet Orally Once a day for 30 day(s) 10/26/2017 Active Spiriva Respimat 1.25 MCG/ACT INHALE 2 PUFFS BY MOUTH EVERY DAY for 30 Active Levothyroxine Sodium 112 MCG 1 tablet on an empty stomach in the morning Orally Once a day for 90 days Active Lovastatin 40 MG 1 tablet Orally QHS for 30 day(s) Active Social History Tobacco Use: Social History Observation Description Date Details (start date - stop date) Current Smoker NA - NA Sex Assigned At : Social History Observation Description Sex Assigned At Male Tobacco Screen: Question Answer Notes Are you a: current smoker How often do you smoke cigarettes? every day How many cigarettes a day do you smoke? 6-10 How soon after you wake up d o you smoke your first cigarette? after 60 min Are you interested in quitting? Thinking about q uitting Alcohol Screening: Question Answer Notes Did you have a drink contain ing alcohol in the past year? Yes How often did you have a dri nk containing alcohol in the past year? Monthly or less (1 point) How many drinks did you have on a typical day when you were drinking in the past year? 1 or 2 (0 points) Points 1 Interpretation Negative Section Notes: +ETOH. Cut back.Previously d aily and problematic. +Tobacco. 1 PPD >30 yrs. Quit smoking a few weeks ago. +ETOH. Cut back.Previously d aily and problematic. +Tobacco. 1 PPD >30 yrs. +ETOH. Cut back.Previously d aily and problematic. +Tobacco. 1 PPD >30 yrs. +ETOH. Cut back.Previously d aily and problematic. +Tobacco. 1 PPD >30 yrs. +ETOH. Cut back.Previously d aily and problematic. +Tobacco. 1 PPD >30 yrs. +ETOH. Cut back.Previously d aily and problematic. +Tobacco. 1 PPD >30 yrs. +ETOH. Cut back.Previously d aily and problematic. +Tobacco. 1 PPD >30 yrs. +ETOH. Cut back.Previously d aily and problematic. +Tobacco. 1 PPD >30 yrs. Quit smoking a few weeks ago. +ETOH. Cut back.Previously daily and problematic. +Tobacco. 1 PPD >30 yrs. Quit smoking a few weeks ago. 04/18/12 cut down on tobacco to 1/2 ppd +ETOH. Cut back.Previously daily and problematic. +Tobacco. 1 PPD >30 yrs. Quit smoking a few weeks ago. 04/18/12 cut down on tobacco to 1/2 ppd +ETOH. Cut back.Previously daily and problematic. +Tobacco. 1 PPD >30 yrs. Quit smoking a few weeks ago. 04/18/12 cut down on tobacco to 1/2 ppd +ETOH. Cut back.Previously daily and problematic. +Tobacco. 1 PPD >30 yrs. Quit smoking a few weeks ago. 04/18/12 cut down on tobacco to 1/2 ppd 02/05/2015 smokes 1/2 ppd; Denies alcohol use. Denies illegal drug use. +ETOH. Cut back.Previously d aily and problematic. +Tobacco. 1 PPD >30 yrs. Problems Problem Type SNOMED Code ICD Code Onset Dates Problem Status W/U Status Risk Notes Problem Unspecified symptoms and signs involving the musculoskeletal system (R29.91) Active confirmed Problem Tobacco use (406941386) Tobacco use (Z72.0) Active confirmed Problem Hyperlipidemia (30023446) Hyperlipidemia, unspecified (E78.5) Active confirmed Problem 43735976 Chronic obstructive pulmonary disease, unspecified COPD type (J44.9) Active confirmed Problem 074593636 Dyslipidemia (E78.5) Active confirmed Problem Hypothyroidism (56828162) Hypothyroidism, unspecified type (E03.9) Active confirmed Problem Generalized anxiety disorder (19271841) Generalized anxiety disorder (F41.1) Active confirmed Plan Of Treatment No Information Insurance Providers Payer Name Payer Address Payer Phone Subscriber Number Group Number Insured Name Patient Relationship to Insured Coverage Start Date Coverage End Date [facility] ed [address]. [address] CLAIMS [place] [address] [phone] [id number] CAREY ALONA Self - patient is the insured [facility] after [facility] [address] [place] [address] [id number] ALONA PATINO Self - patient is the insured Medical (General) History Medical History History ICD Code chronic back pain possible depression high cholesterol Unspecified hypothyroidism 244.9 Hyperlipidemia,Unspecified 272.4 Generalized anxiety disorder 300.02 Pain in joint, pelvic region and thigh 7 19.45 Nausea with vomiting 787.01 Tobacco Use Disorder 305.1 LEVEL 4 undefined Surgical History Surgery Date(Month/Year) back surgery discectomy - L4-L5 2000 Oral surgery-top teeth pulled. 7 Hospitalization History Reason Date(Month/Year)
--- OUTSIDE RECORDS SUMMARY | 2024-09-03 12:59 | XMS_ITS | Encounter Summary ---
Author Organization [facility] Address [address] [place] [address] Phone Care Team Providers Care Digital Court Reporter Name Role Phone Unavailable Primary Care Provider Unavailabl e Encounter Details Date Type Department Care Team (Late st Contact Info) Description 08/28/2022 Orders Only [facility] [address] [place] [address] Conversion, Onbase Social History Tobacco Use Types Packs/Day Years Used Date Smoking Tobacco: Never Assessed Sex and Gender Information Value Date Recorded Sex Assigned at Not on file Legal Sex Male 2:37 PM EDT Gender Identity Not on file Sexual Orientation Not on file documented as of this encounter Plan of Treatment Scheduled Orders Name Type Priority Associated Diagnoses Orde r Schedule OUTSIDE LAB SCAN Lab Ordered: 08/28/2022 documented as of this encounter Visit Diagnoses Not on filedocumented in this encounter Additional Health Concerns Infection Onset Date Last Indicated Resolved Time Tuberculosis Rule-Out Comment:Resolved for go-live cleanup. Resolving all rule outs entered before the [place] go live 2022 09/06/2022 12/18/2022 9:07 AM E DT documented as of this encounter
--- OUTSIDE RECORDS SUMMARY | 2024-09-03 13:01 | XMS_ITS | Encounter Summary ---
Author Organization [facility] Address [address] [place] [address] Care Team Providers Care Car Washer Name Role Phone Siddhartha Huff MD Primary Care Provider [phone] Siddhartha uHff MD Primary Care Provider [phone] Siddhartha Huff MD Unavailable Encounter Details Date Type Department Care Team (Late st Contact Info) Description 04/23/2023 [facility] [address] [place] [address] Siddhartha Huff MD [address] [place] [address] Social History Tobacco Use Types Packs/Day Years [...] 01/21/2025 9:00 AM EST Office Visit [facility] [address] [place] [address] Siddhartha Huff MD [address] [place] [address] documented as of this encounter Procedures Procedure Name Priority Date/Time Associated Diagnosis Comments MISCELLANEOUS LAB TEST Routine 02/12/2023 1:30 PM EST documented in this encounter Results * - Miscellaneous Test (02/12/2023 1:30 PM EST) Siddhartha Huff MD LAB BLOOD ORDERABLES Final Resul t documented in this encounter Visit Diagnoses Not on filedocumented in this encounter Care Teams Car Washer Relationship Specialty Start Date End Date Siddhartha Huff MD PCP - General Family Medicine 01/17/23 06/21/23 Siddhartha Huff MD [address] [place] [address] PCP - General [facility] 06/22/23 Siddhartha Huff MD [address] [place] [address] PCP - [facility] 12/18/23 documented as of this encounter
--- OUTSIDE RECORDS SUMMARY | 2024-09-03 13:01 | XMS_ITS | Encounter Summary ---
Author Organization [facility] Address [address] [place] [address] Care Team Providers Care Associate Financial Analyst Name Role Phone Siddhartha Huff MD Primary Care Provider [phone] Siddhartha Huff MD Primary Care Provider [phone] Siddhartha Huff MD Unavailable Encounter Details Date Type Department Care Team (Late st Contact Info) Description 03/02/2023 Clinisync Result Encounter [facility] Department Unsolicited [...] 9:00 AM EST Office Visit [facility] [address] [place] [address] Siddhartha Huff MD [address] [place] [address] documented as of this encounter Procedures Procedure Name Priority Date/Time Associated Diagnosis Comments CT CHEST W CONTRAST 03/02/2023 1 :21 PM EST documented in this encounter Results * CT CHEST W CONTRAST (03/02/2023 1:21 PM EST) Anatomical Region Laterality Modality Other 03/02/2023 1:21 PM EST Narrative 03/02/2023 1:24 PM EST [address] [address] [address] Scan Report Signed Patient: DREW HODGE MR#: [id number] : 1970 Acct:[id number] Age/Sex: 52 / M ADM Date: 03/01/23 Loc: CT Attending Dr: Arleth Espino D.O. Ordering Physician: Arleth Espino D.O. Date of Service: 03/01/23 Procedure(s): CT chest w con Accession Number(s): [id number] cc: Siddhartha Huff M.D. [address] [id number] Patient Name: DREW HODGE MRN: [id number] date: 1970 Sex: M Assigned Patient Location: CT Current Patient Location: Accession/Order Number: [id number] Exam Date: 03/01/2023 09:35 Report Date: 03/02/2023 13:21 At the request of: ARLETH ESPINO Procedure: CT chest w con EXAM: CT chest w con HISTORY: Mass Of Upper Lobe Left Lung R91.9, Enlarged Lymph Nodes COMPARISON: 12/06/2022, 09/06/2022, 07/28/2022, 06/21/2022 TECHNIQUE: CT of the chest with intravenous contrast. Dose reduction techniques performed. FINDINGS: Production Team Member: No pertinent findings, which are not already discussed below. Tubes, devices, and lines: None. Lower neck: Unremarkable. Lungs/Pleura/Airways: Interval resolution of multifocal opacities with residual bronchiectatic change. No new focal opacities. Stable biapical upper lobe irregular nodules, measuring 2.2 cm on left (metabolically active) and 1.2 cm and the right. Sub-6 cm solid pulmonary nodules for instance within the left central upper lobe (59) and lateral aspect of the right lower lobe (67) are without significant interval change. Paraseptal emphysema. No pleural effusion.No pneumothorax. Clear central airways. Mediastinum: Unremarkable cardiac morphology and pericardium. No coronary artery calcifications. No enlarged thoracic lymph nodes. Vasculature: Normal in course and caliber. Upper abdomen: Unremarkable. Bones: No acute fracture. No suspicious osseous lesion. Soft tissues: Normal. CT/CT chest w con IMPRESSION: 1. Interval resolution of multifocal opacities with residual bronchiectatic change. No new focal opacities 2. Stable pulmonary nodules to include the suspicious left apical hypermetabolic 2.2 cm nodule. Unclear what appropriate follow-up (3-6 months would be reasonable) might be as this was previously recommended for biopsy. Electronically authenticated by: PASTOR TAMAYO Date: 03/02/2023 13:21 Dictated By: Pastor Tamayo Signed By: 03/02/23 1324 DD/ 132 TD/TT: Waistband Setter Lockstitch: Procedure Note Radiology, Radiologist, MD - 03/02/2023 [place] [address] CT Scan Report Signed Patient: DREW HODGE SMR#: [id number] : 1970Acct:[id number] Age/Sex: 52 / MADM Date: 03/01/23 Loc: CT Attending Dr: Arleth Espino D.O. Ordering Physician: Arleth Espino D.O. Date of Service: 03/01/23 Procedure(s): CT chest w con Accession Number(s): [id number] cc: Siddhartha Huff M.D. [facility] [place] [id number] Patient Name: DREW HODGE MRN: [facility]:[id number] date: 1970 Sex: M Assigned Patient Location: CT Current Patient Location: Accession/Order Number: [id number] Exam Date: 03/01/2023 09:35 Report Date: 03/02/2023 13:21 At the request of: ARLETH ESPINO Procedure: CT chest w con EXAM: CT chest w con HISTORY: Mass Of Upper Lobe Left Lung R91.9, Enlarged Lymph Nodes COMPARISON: 12/06/2022, 09/06/2022, 07/28/2022, 06/21/2022 TECHNIQUE: CT of the chest with intravenous contrast. Dose reduction techniques performed. FINDINGS: Production Team Member: No pertinent findings, which are not already discussed below. Tubes, devices, and lines: None. Lower neck: Unremarkable. Lungs/Pleura/Airways: Interval resolution of multifocal opacities with residual bronchiectatic change. No new focal opacities. Stable biapical upper lobe irregular nodules, measuring 2.2 cm on left (metabolically active) and 1.2cm and the right. Sub-6 cm solid pulmonary nodules for instance within theleft central upper lobe (59) and lateral aspect of the right lower lobe (67)are without significant interval change. Paraseptal emphysema. No pleural effusion.No pneumothorax. Clear central airways. Mediastinum: Unremarkable cardiac morphology and pericardium. No coronary artery calcifications. No enlarged thoracic lymph nodes. Vasculature: Normal in course and caliber. Upper abdomen: Unremarkable. Bones: No acute fracture. No suspicious osseous lesion. Soft tissues: Normal. CT/CT chest w con IMPRESSION: 1. Interval resolution of multifocal opacities with residualbronchiectatic change. No new focal opacities 2. Stable pulmonary nodules to include the suspicious left apical hypermetabolic 2.2 cm nodule. Unclear what appropriate follow-up (3-6months would be reasonable) might be as this was previously recommended forbiopsy. Electronically authenticated by: PASTOR TAMAYO Date: 03/02/2023 13:21 Dictated By: Pastor Tamayo Signed By:03/02/23 1324 DD/ 1321 TD/TT: Waistband Setter Lockstitch: Generic External Data Provider [facility] Final Result documented in this encounter Visit Diagnoses Not on filedocumented in this encounter Care Teams Associate Financial Analyst Relationship Specialty Start Date End Date Siddhartha Huff MD PCP - General Family Medicine 01/17/23 06/21/23 Siddhartha Huff MD [address] [place] [address] PCP - General Family Medicine 06/22/23 Siddhartha Huff MD [address] [place] [address] PCP - [facility] 12/18/23 documented as of this encounter
== END 2024-09-03 12:55 | disposition home or self-care (01) ==
LOC: MRI 12:54
PROVIDERS: PCP Family Medicine; Visit Provider Physician Assistant
DX: M54.12 Radiculopathy, cervical region (principal); M50.31 Other cervical disc degeneration, high cervical region; M50.321 Other cervical disc degeneration at C4-C5 level
CPT/HCPCS: 72141

== ENCOUNTER 2024-12-15 09:18 | Outpatient (OUT) | payer OTHER, SELFPAY ==
--- OUTSIDE RECORDS SUMMARY | 2024-09-15 14:28 | XMS_ITS ---
Author Name Auto Generated Organization [facility] Care Team Providers Care Load Out Worker Name Role Phone OBED SCHOFIELD Attending Unavailable ALONA MCCLENDON Attending Unavailable GWEN JONES Attending Unavailable GWEN JONES Attending Unavailable MARCUS ALDRIDGE Attending Unavailable DOT HERNANDEZ Referring Unavailable SONA ALLEN Attending Unavailable DOT HERNANDEZ Referring Unavailable WILLIE BURLESON Attending Unavailable DOT HERNANDEZ Referring Unavailable ONEIL RIVERO Attending Unavailable DOT HERNANDEZ Referring Unavailable MARCUS ALDRIDGE Attending Unavailable DOT HERNANDEZ Referring Unavailable MARCUS ALDRIDGE Attending Unavailable DOT HERNANDEZ Referring Unavailable PROBLEMS DATE TYPE CONDITION / CODE ATTENDING STATUS [facility] 12/11/2022 Admitting Diagnosis Mixed hyperlipidemia / E78.2(ICD-10) ALONA MCCLENDON Active [facility] 09/15/2024 Admitting Diagnosis 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 year old male patient being seen for 6 month follow up. Patient states he feels alright, tired and he keeps losing weight. SOB and NEAL. Patient states he has a pinched nerve in his neck, which is causing a lot of left arm pain. 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 BPH associated with nocturia Dysfunction of left eustachian tube MDD (major depressive disorder), recurrent episode, moderate (CMS/HCC) Prediabetes Vitamin D deficiency Encounter for long-term current use of medication Gastroesophageal reflux disease without esophagitis Screening PSA (prostate specific antigen) Centrilobular emphysema (CMS/HCC) Cervical radiculopathy Chronic neck pain jail (current) use of inhaled steroids Mass of upper lobe of left lung Nondependent cannabis abuse Family History Problem Relation Name Age of Onset Heart attack Mother Heart attack Father Other (pacemaker) Father's Brother Social History Tobacco Use Smoking status: Former Current packs/day: 0.25 Types: Cigarettes Smokeless tobacco: Never Substance Use Topics Alcohol use: Yes Comment: very occasional Drug use: Yes Types: Marijuana Comment: 4 to 5 joints per day BURAK Russell is seen in follow-up. This is the first time I am meeting him. He used to see Dr. Obed Schofield in our office. He is a 54-year-old man with history of nonobstructive CAD, myocardial bridging and hyperlipidemia. He has COPD for which he sees pulmonary. He currently reports no chest pain. He has shortness of breath on exertion that has been stable. He sees pulmonary for that. He has no leg edema. No palpitations. Review of Systems Constitutional: Positive for malaise/fatigue. Cardiovascular: Positive for dyspnea on exertion. Respiratory: Positive for shortness of breath. Musculoskeletal: Positive for neck pain. Objective Visit Vitals BP 117/79 (BP Location: Right arm, Patient Position: Sitting) Pulse 59 Ht 1.702 m (5' 7 ) Wt 71.2 kg (157 lb) SpO2 95% BMI 24.59 kg/m??? Smoking Status Former BSA 1.83 m??? Physical Exam Constitutional: Appearance: He is well-developed. He is not ill-appearing. HENT: Head: Normocephalic and atraumatic. Nose: Nose normal. Eyes: General: No scleral icterus. Pupils: Pupils are equal, round, and reactive to light. Neck: Thyroid: No thyromegaly. Vascular: No JVD. Cardiovascular: Rate and Rhythm: Normal rate and regular rhythm. Pulses: Radial pulses are 2+ on the right side and 2+ on the left side. Heart sounds: Normal heart sounds. No murmur heard. No friction rub. No gallop. Pulmonary: Effort: Pulmonary effort is normal. No respiratory distress. Breath sounds: Decreased air movement present. Examination of the right-upper field reveals wheezing. Examination of the left-upper field reveals wheezing. Wheezing present. No rales. Chest: Chest wall: No tenderness. Abdominal: General: Bowel sounds are normal. There is no distension. Palpations: Abdomen is soft. Tenderness: There is no abdominal tenderness. Musculoskeletal: General: No swelling. Cervical back: Neck supple. Skin: General: Skin is warm and dry. Neurological: General: No focal deficit present. Mental Status: He is alert and oriented to person, place, and time. Psychiatric: Mood and Affect: Mood normal. Behavior: Behavior is cooperative. Judgment: Judgment normal. Allergies No Known Allergies Medications Current Outpatient Medications: aspirin 81 mg EC tablet, Take 81 mg by mouth in the morning., Disp: , Rfl: Ronnietri Aerosphere 160-9-4.8 mcg/actuation HFA aerosol inhaler, Inhale 2 puffs in the morning and at bedtime., Disp: , Rfl: buPROPion XL (Wellbutrin XL) 150 mg 24 hr tablet, Take 150 mg by mouth in the morning., Disp: , Rfl: carvedilol (Coreg) 3.125 mg tablet, Take 1 tablet (3.125 mg) by mouth with breakfast and with evening meal., Disp: 180 tablet, Rfl: 3 citalopram (CeleXA) 20 mg tablet, Take 30 mg by mouth in the morning., Disp: , Rfl: levothyroxine (Synthroid, Levoxyl) 112 mcg tablet, 1 (one) time each day at the same time., Disp: , Rfl: omeprazole (PriLOSEC) [address] capsule, Take 40 mg by mouth before breakfast., Disp: , Rfl: rosuvastatin (Crestor) 20 mg tablet, Take 1 tablet (20 mg) by mouth at bedtime., Disp: 90 tablet, Rfl: 3 tamsulosin (Flomax) 0.4 mg 24 hr capsule, Take 0.4 mg by mouth in the morning., Disp: , Rfl: Ventolin HFA 90 mcg/actuation inhaler, Inhale 2 puffs every 4 (four) hours if needed., Disp: , Rfl: ezetimibe (Zetia) 10 mg tablet, Take 1 tablet (10 mg) by mouth in the morning., Disp: 90 tablet, Rfl: 3 Recent Labs No visits with results within 6 Month(s) from this visit. Latest known visit with results is: Admission on 06/28/2023, Discharged on 06/28/2023 Component Date Value Ventricular Rate 06/28/2023 60 Atrial Rate 06/28/2023 60 VT Interval 06/28/2023 138 QRS DURATION 06/28/2023 100 QT Interval 06/28/2023 416 QTC CALCULATION(BAZETT) 06/28/2023 416 P [place] 06/28/2023 76 R-[place] 06/28/2023 68 T Wave [place] 06/28/2023 73 Blood testing 02/21/2024: Hemoglobin 14.8, platelets 234, potassium 4.2, BUN 9, creatinine 1.08, EGFR more than 60, hemoglobin A1c 5.4, LFTs normal, triglycerides 59, cholesterol 161, LDL 73, HDL 77, TSH 1.412. Imaging and other tests Cardiac catheterization 06/28/2023: Final Impressions: -Non obstructive CAD LMCA - This vessel arises from the left coronary cusp and bifurcates into the left anterior descending and left circumflex coronary arteries. It is a short vessel. It is angiographically patent and without significant stenosis. LAD - There is 30% stenosis at the ostium of the vessel. Otherwise, the vessel has moderate diffuse disease. It tapers to a small vessel in the mid to distal portion. There appears to be bridging in the mid segment of the vessel. LCX - This is a dominant vessel. There is 30-40% stenosis in the mid portion of the vessel. There is 30-40% stenosis at the ostium of OM1. There is luminal irregularities and diffuse disease in the distal vessel/LPDA RCA - This arises from the right coronary cusp. It is a small, non dominant vessel. There is 70-80% stenosis in the mid portion of the vessel. ECG 06/28/2023: Normal sinus rhythm Normal ECG Assessment/Plan Diagnoses and all orders for this visit: Coronary artery disease involving hughes coronary artery of hughes heart without angina pectoris - ezetimibe (Zetia) 10 mg tablet; Take 1 tablet (10 mg) by mouth in the morning. Mixed hyperlipidemia - ezetimibe (Zetia) 10 mg tablet; Take 1 tablet (10 mg) by mouth in the morning. Coronary-myocardial bridge Shortness of breath He is doing relatively well. I reviewed the lipid profile from February 2024 and it shows LDL above at target given his coronary artery disease I am going to add ezetimibe 10 mg daily. His shortness of breath is stable for his COPD. He follows with pulmonary for that. Otherwise continue aspirin and low dose carvedilol therapy. We can see him in follow-up in 1 year. Follow up in about 1 year (around 09/15/2025). Alona Mcclendon MD OFFICE VISIT Observed: 09/15/2024 2:30 PM Status: COMPLETED Source: [facility] [id number] Alona Hodge 04/1970 M Date Provider Department Center 09/15/2024 367-ALONA MCCLENDON [facility] Family History Problem Relation Age of Onset Heart attack Mother Heart attack Father Other Father's Brother Family Status - Relation Status Age at Mother Father Father's Brother Level of Service:16880 [place] OFFICE/OUTPATIENT ESTABLISHED LOW MDM 20 MIN OFFICE VISIT Observed: 04/11/2024 2:20 PM Status: COMPLETED Source: [facility] [id number] Alona Hodge 04/1970 M Date Provider Department Center 04/11/2024 3848-ISABELRAYSAMILTONJOSEPCorine [facility] Family History Problem Relation Age of Onset Heart attack Mother Heart attack Father Other Father's Brother Family Status - Relation Status Age at Mother Father Father's Brother Level of Service:52145 [place] OFFICE/OUTPATIENT ESTABLISHED LOW MDM 20 MIN PROGRESS Observed: 04/11/2024 2:20 PM Status: COMPLETED Source: [facility] Cardiology Clinic Note HPI: Alona Hodge is a 53 y.o. male With a past medical history including hyperlipidemia, generalized anxiety disorder, Tobacco abuse, and COPD. Patient was referred to Cardiology clinic for evaluation of chest pain. He underwent cardiac cath for unstable angina. He was found to have non obstructive CAD and myocardial bridging. He presents today for follow up. Patient here for 6 mo follow up non-obstructive CAD, myocardial bridging, and hyperlipidemia. Had routine labs with lipid panel last month. Denies chest pain. Says ever since he's been taking carvedilol palpitations have resolved. He sees Dr. Contreras for COPD. Doing very well from cardiac standpoint. Patient adamantly denies any cardiac complaints or concerns. Patient denies any chest pain or shortness of breath. Patient denies any lower extremity edema, orthopnea, or proximal nocturnal dyspnea. No near-syncope or syncope. No dizziness or lightheadedness. He has quit smoking. Cardiology ROS: 10 point ROS is performed and is negative unless otherwise specified in HPI. Past Medical History He has a past medical history of Chest pain, COPD (chronic obstructive pulmonary disease) ([facility]), Hyperlipidemia, and Lung mass. Surgical History He has a past surgical history that includes Back surgery. Social History He reports that he has been smoking cigarettes. He has never used smokeless tobacco. He [...] by mouth at bedtime. 90 tablet 3 tamsulosin (Flomax) 0.4 mg 24 hr capsule Take 0.4 mg by mouth in the morning. Ventolin HFA 90 mcg/actuation inhaler Inhale 2 puffs every 4 (four) hours if needed. No current facility-administered medications on file prior to visit. Allergies Patient has no known allergies. Physical Exam VITAL SIGNS: There were no vitals taken for this visit. Constitutional: Well developed, Well nourished, No acute [...] for HTN and for myocardial bridging -Continue rosuvastatin for HLD -I again congratulated the patient on his successful smoking cessation and encouraged him to continue on this path. He voices understand -Further recommendations to follow -Optimize medical management -Aggressive risk factor modification -Plan of care discussed with patient. All questions were answered. Patient voices understanding and is agreeable with current plan. -Patient was educated on red flag symptoms. Strict return precautions were provided. Patient verbalizes understanding -Follow-up in cardiology clinic in 6 months, or sooner as needed Obed Schofield MD Interventional Cardiology [facility] ALLERGIES DATE TYPE / CODE NAME / CODE REACTION SEVERITY SOURCE SYSTEMIC/[id number]( SNOMED CT) NO KNOWN ALLERGIES [facility] ENCOUNTERS ADMIT/DISCHARGE ACCOUNT NUMBER ADMITTING ENCOUNTER CLASS LOCATION SOURCE 09/15/2024/ 5 [id number] Ambulatory Building:[facility] 08/26/2024/ 5 [id number] Ambulatory Building:[facility] 08/13/2024/ 5 [id number] Ambulatory Building:[facility] 08/08/2024/ 5 [id number] Ambulatory Building:[facility] 08/06/2024/ 5 [id number] Ambulatory Building:[facility] 08/04/2024/ 5 [id number] Ambulatory Building:[facility] 07/29/2024/ 5 [id number] Ambulatory Building:[facility] 07/21/2024/ 5 [id number] Ambulatory Building:[facility] 04/11/2024/ 5 [id number] Ambulatory Building:[facility] 01/21/2024/ [id number] Ambulatory Building:[facility] EPIC PAYERS ENCOUNTER GUARANTOR PAYER SUBSCRIBER SOURCE 09/15/2024 Primary Insurance:[facility] MEDICAIDPolicy Number: [id number] Date:2014-11-17 ALONA Ji NASONDOB: [id number] [address] [address] [facility] 08/26/2024 ALONA NASONDOB: [address], [place] [address]Mxr: (HP) Primary Insurance:[facility] MEDICAIDPolicy Number: [id number] Date:2014-11-17 ALONA NASONDOB: [id number] [place] [address] [facility] EP[facility] 08/13/2024 ALONA NASONDOB: [address], [place] [address]Myk: (HP) Primary Insurance:[facility] MEDICAIDPolicy Number: [id number] Date:2014-11-17 ALONA NASONDOB: [id number], [place] [address] [facility] EP[facility] 08/08/2024 ALONA NASONDOB: [address], [place] [address]Mco: (HP) Primary Insurance:[facility] MEDICAIDPolicy Number: [id number] Date:2014-11-17 ALONA NASONDOB: [id number] [place] [address] [facility] 08/06/2024 ALONA NASONDOB: [address], [place] [address]Two: (HP) Primary Insurance:[facility] MEDICAIDPolicy Number: [id number] Date:2014-11-17 ALONA NASONDOB: [id number] [place] [address] [facility] 08/04/2024 ALONA NASONDOB: [address], [place] [address]Qbq: (HP) Primary Insurance:[facility] MEDICAIDPolicy Number: [id number] Date:2014-11-17 ALONA NASONDOB: [id number], [place] [address] [facility] EP[facility] 07/29/2024 ALONA NASONDOB: [address], [place] [address]Slu: (HP) Primary Insurance:[facility] MEDICAIDPolicy Number: [id number] Date:2014-11-17 ALONA NASONDOB: [id number] [place] [address] [facility] 07/21/2024 ALONA NASONDOB: [address], [place] [address]Ngk: (HP) Primary Insurance:[facility] MEDICAIDPolicy Number: [id number] Date:2014-11-17 ALONA NASONDOB: [id number] [place] [address] [facility] 04/11/2024 Primary Insurance:[facility] MEDICAIDPolicy Number: [id number] Date:2014-11-17 ALONA Ji NASONDOB: [id number] [facility] [address] [place] [address] [facility] 01/21/2024 ALONA NASONDOB: [address], [place] [address]Jnw: (HP) Primary Insurance:[facility] MEDICAIDPolicy Number: [id number] Date:2014-11-17 ALONA NASONDOB: [id number], [place] [address] [facility] EPIC
--- NOTE | 2024-12-15 09:21 | CT_ITS ---
The [address] [address] Patient Name: ALONA PATINO MRN: [id number] date: 1970 Sex: M Assigned Patient Location: CT Current Patient Location: CT Accession/Order Number: [id number] Exam Date: 12/15/2024 09:27 Report Date: 12/15/2024 10:30 At the request of: ARLETH ESPINO DO Procedure: CT chest wo con CT CHEST WITHOUT CONTRAST COMPARISON: 11/27/2023 CLINICAL DATA: Follow-up nodularity. Tobacco use. Spiral images were obtained through the chest without contrast. Images were reviewed using both narrow and wide window settings. This CT exam was performed using one or more following dose reduction techniques: Automated exposure control, adjustment of the mA and/or kV according to patient size, or use of iterative reconstruction technique. The heart is normal size. No pericardial effusion is present. There is minimal coronary artery disease. No aortic aneurysm is identified. There is minimal plaque at the aortic arch and proximal great vessels. There are small mediastinal lymph nodes with short axis dimension up to 8 mm. There is slightly larger. The saúl are more difficult to evaluate without contrast however there is no obvious change in contour. There is subtle dextroscoliotic curvature and minor endplate spurring. There is obstructive lung disease with airspace lucencies and subpleural blebs, greatest at the apices. Bronchial dilatation is also again seen. There is new irregular opacity extending along the anterior and lateral aspect of the right upper lobe. Central air collections are noted which could represent cavitation. There are also developing irregular opacities with associated nodularity at the left upper lobe. There are similar nodular asymmetries at the right upper lobe on axial image 28, left upper lobe on axial image 29 and right lower lobe on axial image 70. No other developing nodularity is identified. There is no pleural effusion or pneumothorax. Limited cuts through the upper abdomen show no contributory findings. CT/CT chest wo con IMPRESSION: ADVANCED OBSTRUCTIVE LUNG DISEASE. DEVELOPING BILATERAL UPPER LOBE IRREGULAR OPACITIES WITH ASSOCIATED NODULARITY ON THE LEFT AND POSSIBLE CAVITATION ON THE RIGHT. THIS MAY BE INFECTIOUS OR INFLAMMATORY. FOLLOW-UP IS RECOMMENDED TO ASSESS FOR RESOLUTION. STABLE BILATERAL NODULARITY. SLIGHT INCREASE IN SIZE OF MEDIASTINAL LYMPH NODES. THIS COULD BE REACTIVE. Impression dictated by: Edyta Ignacio M.D. 12/15/2024 10:30 AM Dictation Location: [place] [address] Electronically authenticated by: [id number] Y Date: 12/15/2024 10:30
--- OUTSIDE RECORDS SUMMARY | 2024-12-15 09:21 | XMS_ITS | Encounter Summary ---
Author Organization [facility] Address [address] [place] [address] Care Team Providers Care Hand Bootmaker Name Role Phone Siddhartha Huff MD Primary Care Provider [phone] Siddhartha Huff MD Unavailable Encounter Details Date [...] How often do you attend chur or sabianism services? Never 07/24/2023 Do you belong to any clubs o r organizations such as bahai groups, unions, fraternal or athletic groups, or [...] housing, medical care, and heating? Hard 07/24/2023 [facility] - Occupational Stress [...] place to sleep or slept in a longterm (including now)? No 07/24/2023 Sex and Gender Information Value Date Recorded Sex Assigned at Not on file Legal Sex Male 9:37 AM EST Gender Identity Not on file Sexual Orientation Not on file documented as of this encounter Plan of Treatment Not on file documented as of this encounter Procedures Procedure Name Priority Date/Time Associated Diagnosis Comments CT CHEST WO CON 11/28/2023 6:47 AM EDT documented in this encounter Results * CT CHEST WO CON (11/28/2023 6:47 AM EDT) Anatomical Region Laterality Modality Other 11/28/2023 6:47 AM EDT Narrative 11/28/2023 6:50 [place] [address] CT Scan Report Signed Patient: ALONA HODGE MR#: [id number] : 1970 Acct:[id number] Age/Sex: 53 / M ADM Date: 11/27/23 Loc: CT Attending Dr: Darshan Espino D.O. Ordering Physician: Darshan Espino D.O. Date of Service: 11/27/23 Procedure(s): CT chest wo con Accession Number(s): [id number] cc: Siddhartha Huff M.D. [place] [id number] Patient Name: ALONA HODGE MRN: [id number] date: 1970 Sex: M Assigned Patient Location: CT Current Patient Location: Accession/Order Number: [id number] Exam Date: 11/27/2023 09:00 Report Date: 11/28/2023 06:47 At the request of: DARSHAN ESPINO Procedure: [...] Dictated By: Dot Martin M.D. Signed By: 11/28/2350 DD/ 6 TD/TT: Senior Catering Sales Manager: Procedure Note Radiology, Radiologist, MD - 11/28/2023 [place] [address] CT Scan Report Signed Patient: ALONA HODGE [facility]#: [id number] : 1970Acct:[id number] Age/Sex: 53 / MADM Date: 11/27/23 Loc: CT Attending Dr: Darshan Espino D.O. Ordering Physician: Darshan Espino D.O. Date of Service: 11/27/23 Procedure(s): CT chest wo con Accession Number(s): [id number] cc: Siddhartha Huff M.D. The [place] [id number] Patient Name: ALONA HODGE MRN: [id number] date: 1970 Sex: M Assigned Patient Location: CT Current Patient Location: Accession/Order Number: [id number] Exam Date: 11/27/2023 09:00 Report Date: 11/28/2023 06:47 At the request of: DARSHAN ESPINO Procedure: [...] Dot Martin M.D. Signed By:11/28/23 0650 DD/ TD/TT: Senior Catering Sales Manager: Generic External Data Provider [facility] Final Result documented in this encounter Visit Diagnoses Not on filedocumented in this encounter Care Teams Hand Bootmaker Relationship Specialty Start Date End Date Siddhartha Huff MD PCP - General Family Medicine 06/22/23 Siddhartha Huff MD [address] [place] [address] PCP - [facility] 12/18/23 documented as of this encounter
--- OUTSIDE RECORDS SUMMARY | 2024-12-15 09:21 | XMS_ITS | Clinical Summary ---
Author Organization [facility] Address [address] [place] [address] Phone Care Team Providers Care Ecdis N Navigation Operator Name Role Phone Unavailable Primary Care Provider [...] 1987 DTaP/Tdap/Td Vaccines (1 - Tdap) 1990 PSA Prostate Cancer Screening 2018 Pneumococcal Vaccine (1 of 1 - PCV) 2018 Zoster Vaccines (1 of 2) 2018 COVID-19 Vaccine (2023-2 5 season) 2024 Influenza Vaccine (#1) 2024 HIB Vaccines Aged Out No longer [...]
--- OUTSIDE RECORDS SUMMARY | 2024-12-15 09:21 | XMS_ITS | Patient Health Record ---
Author Organization [facility] Address [address] [place] [address] Care Team Providers Care Manager Multimedia Name Role Phone Brayan Simon Primary Care Provider Allergies No Known Allergies Reason For Referral No Information Medications Medication SIG (Take, Route, Frequency, Duration) Notes Start Date End Date Status ProAir HFA 108 (90 Base) MCG/ACT 2 puffs as needed every 4 hrs Inhalation Inhalation every 4 hrs; Duration: 30 days Active Dulera 200-5 MCG/ACT INHALE 2 PUFFS BY M OUTH TWICE DAILY; Duration: 30 Active CeleXA 20 MG 1 tablet Orally Once a day; Duration: 30 day(s) 10/26/2017 Active Spiriva Respimat 1.25 MCG/ACT INHALE 2 PUFFS BY MOUTH EVERY DAY; Duration: 30 Active Levothyroxine Sodium 112 MCG 1 tablet on an empty stomach in the morning Orally Once a day; Duration: 90 days Active Lovastatin 40 MG 1 tablet Orally QHS; Duration: 30 day(s) Active Social History Tobacco Use: [...] 1 PPD >30 yrs. +ETOH. Cut back.Previously daily and problematic. +Tobacco. 1 PPD >30 yrs. Quit smoking a few weeks ago. 04/18/12 cut down on tobacco to 1/2 ppd +ETOH. Cut back.Previously d aily and problematic. [...] system (R29.91) Active confirmed Problem Tobacco use (462573744) Tobacco use (Z72.0) Active confirmed Problem Hyperlipidemia (20066028) Hyperlipidemia, unspecified (E78.5) Active confirmed Problem COPD - Chronic obstructive pulmonary disease (59999421) Chronic obstructive pulmonary disease, unspecified COPD type (J44.9) Active confirmed Problem Dyslipidemia (614260657) Dyslipidemia (E78.5) Active confirmed Problem Hypothyroidism (12718051) Hypothyroidism, unspecified type (E03.9) Active confirmed Problem Generalized anxiety disorder (21946141) Generalized anxiety disorder (F41.1) Active confirmed Plan Of Treatment No Information Insurance Providers Payer Name Payer Address Payer Phone Subscriber Number Group Number Insured Name Patient Relationship to Insured Coverage Start Date Coverage End Date [facility] [address]. [address] CLAIMS DE[place] [address] [id number] ALONA PATINO Self - [facility] the [facility] [address] [place] [address] [id number] ALONA PATINO Self - patient is the [...]
--- OUTSIDE RECORDS SUMMARY | 2024-12-15 09:21 | XMS_ITS | Patient Health Record ---
Author Organization [facility] Address [address] [place] [address] Care Team Providers Care Mold Car Pusher Name Role Phone Siddhartha Huff Primary Care Provider Brad Luke Unavailable [phone] Zoe Isaac Unavailable Allergies No Known Allergies Results Component Value Reference Range Notes [facility]- CERVICAL 4 VIEW Reviewed date:08/19/2024 09:42:59 AM Interpretation: Performing Lab: Notes/Report: Reason For Referral Reason DENIED...........PLE ASE OBTAIN AUTHORIZATION FOR MRI CERVICAL SPINE Diagnosis 1 Cervical radiculopat hy (M54.12) Referral Organization [facility] Referring Provider First Name Brad Referring Provider Last Name Lilian Referring Provider Speciality Orthopedic Surgery Referred Organization [facility] Referred Address [place], [place], Procedure 1 MRI Cervical w/o dye (83397) General Notes Julia Elise 025 12:44:55 PM >PENDING [facility]X #[id number], Julia Elise 06/24/2024 07:43:01 AM >STILL PENDINGArik [...] [facility] 07/10/2024 09:41:05 AM > PER [facility], HOLD OFF ON CERVICAL MRI. FOLLOW UP FOR SHOULDER Referral Priority Routine Reason APPROVED .......CHEL STARK OBTAIN AUTHORIZATION FOR LEFT SHOULDER MRI Diagnosis 1 Acute pain of left s arvind (M25.512) Referral Organization [facility] Referring Provider First Name [facility] Referring Provider Last Name [place] Referring Provider Speciality Orthopedic Surgery Referred Organization [facility] Referred Address [place], [place], Procedure 1 MRI Joint Upper Ext w/o Dye (57610) General Notes Julia Elise 025 12:40:46 PM >PENDING [facility] #[id number] CLINICAL ATTACHEDArik Amy 06/23/2024 01:37:05 PM >APPROVED PER [facility] AUTH #[id number] VALID 06/23/2024-07/23/2024 COPY IN CHART MA NOTIFIED REF FAXED TO Elias MAS Kimberly 06/23/2024 02:51:54 PM > Faxed order to Estephanie Referral Priority Routine Reason DENIED...........ple ase obtain authorization for MRI Cervical Diagnosis 1 Cervical radiculopat hy (M54.12) Referral Organization [facility] Referring Provider First Name Brad Referring Provider Last Name Lilian Referring Provider Speciality Orthopedic Surgery Referred Organization [facility] john Referred Address [place], [place], Procedure 1 MRI Cervical w/o dye (95578) General Notes Julia Elise 025 10:38:58 AM >PENDING [facility] #[id number] CLINICAL ATTACHED, uJlia Elise 07/17/2024 07:25:00 AM >STILL PENDINGArik Amy [...] try PT/OT. Sent order to [facility] in [place] and scheduled a follow up appointment. Referral Priority Routine Reason APPROVED .......PLEA SE OBTAIN AUTHORIZATION FOR MRI CERVICAL Diagnosis 1 Cervical radiculopat hy (M54.12) Referral Organization [facility] Referring Provider First Name Brad Referring Provider Last Name Quintana Referring Provider Speciality Orthopedic Surgery Referred Organization [facility] Garrison lopez Referred Address [place], [place], Procedure 1 MRI Cervical w/o dye (82048) General Notes Julia Elise 025 11:34:37 AM >PENDING [facility] TRX #[id number] NEED DICTATION OF LAST NOTE TO UPLOAD, Ceci Griffin 08/18/2024 02:45:52 PM > Note is complete, Julia Elise 08/18/2024 02:56:09 PM >UPLOADEDArik Amy 08/19/2024 09:10:49 AM >STILL PENDINGArik Amy 08/22/2024 11:28:17 AM >STILL PENDINGArik Amy 08/25/2024 08:45:52 AM >STILL PENDINGArik Amy 08/26/2024 07:42:31 AM >STILL PENDINGArik Amy 08/27/2024 08:02:49 AM >APPROVED PER [facility] AUTH #[id number] VALID 08/18/2024-09/17/2024 COPY IN CHART MA NOTIFIED [...] Problem Status W/U Status Risk Notes Problem 18912353 Cervical radiculopathy (M54.12) Active confirmed Vital Signs Height 5'7 in 08/18/2024 Weight 165 lbs 08/18/2024 BMI 25.84 08/18/2024 Encounters Encounter Location Date Provider Diagnosis [facility] [address] [place] [address] 06/23/2024 Brad Quintana Acute pain of left shoulder M25.512 and Cervical radiculopathy M54.12 [facility] [address] [place] [address] 07/14/2024 Brad Quintana [facility]ervical [facility]opathy M54.12 [facility] [address] [place] [address] [place] [address] 08/18/2024 Zoe Isaac Cervical radiculopathy M54.12 Assessments Encounter Date Diagnosis (ICD Code) Assessment Notes Treatment Notes Treatment Clinical Notes Section Notes 06/23/2024 Cervical radiculopathy (ICD-10 - M54.12) 06/23/2024 Acute pain of left shoulder (ICD-10 - M25.512) 07/14/2024 Cervical radiculopathy (ICD-10 - M54.12) 08/18/2024 Cervical radiculopathy (ICD-10 - M54.12) Cervical radiculopathy Cervical degenerative disc disease C3 on 4, C4 on 5 dynamic spondylolisthesis 06/23/2024 Other I discussed with the patient that his left shoulder weakness is likely secondary to a rotator cuff tear. Given his cervical radiculopathy I have recommended an MRI scan of his cervical spine as well for further evaluation. He will follow-up once the studies are complete. Import medication 07/14/2024 Other For his significant weakness in his left upper extremity with a normal MRI of his shoulder I have recommended an MRI of his C-spine to evaluate for a large disc herniation causing profound weakness in his left upper arm and the need for surgical intervention. He will follow-up once the MRI of his cervical spine is complete. Import medication 08/18/2024 Other Patient is [...] MRI : Shoulder W/O Contrast Left - 04058 06/23/2024 MRI : Cervical Spine W/O Contrast - 7214 1 08/18/2024 PT/OT - Eval and Treat 07/14/2024 MRI : Cervical Spine W/O Contrast - 7214 1 06/23/2024 Insurance Providers Payer Name Payer Address Payer Phone Subscriber Number Group Number Insured Name Patient Relationship to Insured Coverage Start Date Coverage End Date Medicaid [employer] [place] [address] [facility] [phone] [id number] ALONA PATINO Self - patient is the insured Medical (General) History Medical History History ICD Code Asthma/COPD Respiratory problems: Lung Disease Problems with Anesthesia Heart problems: Hypothyroidism Depression Mental Illness: Anxiety Surgical History Surgery Date(Month/Year) Back surgery
--- OUTSIDE RECORDS SUMMARY | 2024-12-15 09:21 | XMS_ITS | Encounter Summary ---
Author Organization [facility] Address [address] [place] [address] Phone Care Team Providers Care Capacitor Inspector Name Role Phone Unavailable Primary Care Provider Unavailabl e Encounter Details Date Type Department Care Team (Late st Contact Info) Description 08/28/2022 Orders Only [facility] [address] [place] [address] Conversion, Onbase Social History Tobacco Use Types [...] Resolving all rule outs entered before the cowlitz go live 2022 09/06/2022 12/18/2022 9:07 AM E DT documented as of this encounter
--- OUTSIDE RECORDS SUMMARY | 2024-12-15 09:21 | XMS_ITS | Clinical Summary ---
Author Organization [facility] Address [address] [place] [address] Care Team Providers Care Advertising Internship Name Role Phone Siddhartha Huff MD Primary Care Provider [phone] Siddhartha Huff MD Unavailable Allergies No known active allergies Medications Budeson-Glycopyr rol-Formoterol (Breztri Aerosphere) 160-9-4.8 MCG/ACT aerosol every 12 (twelve) hours 4 Active Ventolin HFA 108 (90 Base) MCG/ACT inhaler Inhale 2 puffs every 4 (four) hours if needed Active albuterol (2.5 MG/3ML) 0.083% nebulizer solution INHALE 3ml BY MOUTH via NEBULIZER FOUR TIMES DAILY 4 Active aspirin 81 MG EC tablet Take 81 mg by mouth in the morning. Active methocarbamol (Robaxin) 750 MG tablet Take 750 mg by mouth 4 (four) times a day as needed 4 Active rosuvastatin (Crestor) 20 MG tablet Take 20 mg by mouth in the morning. Active carvedilol (Coreg) 3.125 MG tablet Take 3.125 mg by mouth in the morning and 3.125 mg in the evening. Take with meals. 4 Active buPROPion XL (Wellbutrin XL) 300 MG 24 hr tabletIndication s:MDD (major depressive disorder), recurrent episode, moderate (HCC) Take 1 tablet (300 mg) by mouth Daily 4 Active levothyroxine (Synthroid, Levoxyl) 112 MCG tabletIndication s:Hypothyroidism , unspecified TAKE 1 TABLET BY MOUTH DAILY 90 tablet 3 5 Active omeprazole (PriLOSEC) [address] capsuleIndicatio ns:Gastroesophag eal reflux disease without esophagitis TAKE 1 CAPSULE BY MOUTH IN THE MORNING BEFORE MEALS * DO NOT CRUSH OR CHEW * 30 capsule 5 5 Active tamsulosin (Flomax) 0.4 MG 24 hr capsuleIndicatio ns:BPH associated with nocturia TAKE 1 CAPSULE BY MOUTH DAILY 30 capsule 5 5 Active citalopram (CeleXA) 40 MG tabletIndication s:MDD (major depressive disorder), recurrent episode, moderate (HCC) TAKE 1 TABLET BY MOUTH DAILY 30 tablet 5 5 Active fluticasone (Flonase) 50 MCG/ACT nasal sprayIndications :Dysfunction of left eustachian tube Administer 2 sprays into each nostril Daily Shake gently. Before first use, prime pump. After use, clean tip and replace cap. 16 g 2 5 Active Active Problems Problem Noted Date Diagnosed [...] Encounters Date Type Department Care Team Description 11/04/2024 Refill [facility] [address] [place] [address] Siddhartha Huff MD Dysfunction of left eustachian tube from Last 3 Months Social History Tobacco [...] often do you attend chur ch or christianity services? Never 07/24/2023 Do you belong to any clubs o r organizations such as mormonism groups, unions, fraternal or athletic groups, or [...] and heating? Hard 07/24/2023 [facility] Questionnaire Answer Date [...] place to sleep or slept in a detention (including now)? No 07/24/2023 Sex and Gender [...] 07/21/2024 8:58 AM EDT Plan of Treatment Health Maintenance Due Date Last Done Comments CT Colonography 1970 FIT-DNA 1970 FIT 1970 FOBT 1970 Lung Cancer Screening Shared Decision Making 9 Sigmoidoscopy 1970 Influenza Vaccine (#1) 2024 Colonoscopy 04/25/2031 04/25/2021 Colorectal Cancer Screening 04/25/2031 Insurance [employer] Care Teams Advertising Internship Relationship Specialty Start Date End Date Siddhartha Huff MD PCP - General Family Medicine 06/22/23 Siddhartha Huff MD [address] [place] [address] [facility] 12/18/23
--- OUTSIDE RECORDS SUMMARY | 2024-12-15 09:26 | XMS_ITS | Encounter Summary ---
Author Organization [facility] Address [address] [place] [address] Care Team Providers Care Telephone Operator Name Role Phone Siddhartha Huff MD Primary Care Provider [phone] Siddhartha Huff MD Primary Care Provider [phone] Siddhartha Huff MD Unavailable Encounter Details Date [...] PM EST Narrative 03/02/2023 1:24 PM EST The [address] [address] [address] Scan Report Signed Patient: ALONA HODGE MR#: [id number] : 1970 Acct:[id number] Age/Sex: 52 / M ADM Date: 03/01/23 Loc: CT Attending Dr: Darshan Samsa D.O. Ordering Physician: Darshan Espino D.O. Date of Service: 03/01/23 Procedure(s): CT chest w con Accession Number(s): [id number] cc: Siddhartha Huff M.D. [address] [address] Patient Name: ALONA HODGE MRN: [id number] date: 1970 Sex: M Assigned Patient Location: CT Current Patient Location: Accession/Order Number: [id number] Exam Date: 03/01/2023 09:35 Report Date: 03/02/2023 13:21 At the request of: DARSHAN ESPINO Procedure: CT chest w con EXAM: CT chest w con HISTORY: Mass Of Upper Lobe Left Lung R91.9, Enlarged Lymph Nodes COMPARISON: 12/06/2022, 09/06/2022, 07/28/2022, 06/21/2022 TECHNIQUE: CT of the chest with intravenous contrast. Dose reduction techniques performed. FINDINGS: Cnc Machine Operator: No pertinent findings, which are not already [...] Pastor Tamayo Signed By: 03/02/23 1324 DD/ 1321 TD/TT: Airport Representative: Procedure Note Radiology, Radiologist, - 03/02/2023 [place] [address] CT Scan Report Signed Patient: ALONA HODGE [facility]#: [id number] : 1970Acct:[id number] Age/Sex: 52 / MADM Date: 03/01/23 Loc: CT Attending Dr: Darshan Espino D.O. Ordering Physician: Darshan Espino D.O. Date of Service: 03/01/23 Procedure(s): CT chest w con Accession Number(s): [id number] cc: Siddhartha Huff M.D. The [place] [address] Patient Name: ALONA HODGE MRN: [id number] date: 1970 Sex: M Assigned Patient Location: CT Current Patient Location: Accession/Order Number: [id number] Exam Date: 03/01/2023 09:35 Report Date: 03/02/2023 13:21 At the request of: DARSHAN ESPINO Procedure: CT chest w con EXAM: CT chest w con HISTORY: Mass Of Upper Lobe Left Lung R91.9, Enlarged Lymph Nodes COMPARISON: 12/06/2022, 09/06/2022, 07/28/2022, 06/21/2022 TECHNIQUE: CT of the chest with intravenous contrast. Dose reduction techniques performed. FINDINGS: Cnc Machine Operator: No pertinent findings, which are not already [...] Tamayo Signed By:03/02/23 1324 DD/ 1321 TD/TT: Airport Representative: us Generic External Data Provider [facility] Final Result documented in this encounter Visit Diagnoses Not on filedocumented in this encounter Care Teams Telephone Operator Relationship Specialty Start Date End Date Siddhartha Huff MD PCP - General Family Medicine 01/17/23 06/21/23 Siddhartha Huff MD PCP - General [facility] 06/22/23 Siddhartha Huff MD [address] [place] [address] PCP - [facility] 12/18/23 documented as of this encounter
--- OUTSIDE RECORDS SUMMARY | 2024-12-15 09:26 | XMS_ITS | Encounter Summary ---
Author Organization [facility] Address [address] [place] [address] Care Team Providers Care Supervisor Dumping Name Role Phone Siddhartha Huff MD Primary Care Provider [phone] Siddhartha Huff MD Primary Care Provider [phone] Siddhartha Huff MD Unavailable Encounter Details Date Type Department Care Team (Late st Contact Info) Description 04/23/2023 Orders Only [facility] [address] [place] [address] Siddhartha Huff MD [address] [facility] [place] [address] Social History Tobacco Use Types Packs/Day Years [...] on filedocumented in this encounter Care Teams Supervisor Dumping Relationship Specialty Start Date End Date Siddhartha Huff MD PCP - General Family Medicine 01/17/23 06/21/23 Siddhartha Huff MD PCP - General [facility] 06/22/23 Siddhartha Huff MD [address] [place] [address] PCP - [facility] 12/18/23 documented as of this encounter
== END 2024-12-15 09:19 | disposition home or self-care (01) ==
LOC: CT 09:18
PROVIDERS: PCP Family Medicine; Visit Provider Internal Medicine
DX: R91.8 Other nonspecific abnormal finding of lung field (principal); J44.9 Chronic obstructive pulmonary disease, unspecified
CPT/HCPCS: 71250

== ENCOUNTER 2025-01-09 11:31 | Outpatient (OUT) | payer OTHER, SELFPAY ==
--- OUTSIDE RECORDS SUMMARY | 2023-12-11 09:30 | XMS_ITS ---
Author Organization [facility] in [place] Address [address] [place] [address] Care Team Providers Care Seed Cleaner Operator Name Role Phone Refugio YEH, Siddhartha Primary Care Provider Unavailab Darshan Song Unavailable [phone] REASON FOR VISIT 3m COPD Encounters Encounter Location Date Provider Diagnosis Pulmonary Medicine [address] [address] 12/11/2023 Darshan Contreras Plan Of Treatment No Information Progress Notes * Drew HODGE SDOB: 9 (54 yo M)Acc No.[id number]:12/11/2023 UNLOCKED PROGRESS NOTE Follow Up Patient: Drew SMALLWOOD :?Darshan Contreras DODOB:1970???Age:53 Y ???Sex:MaleDate:4Phone:[phone]:[address] [place], [place] [id number]:Siddhartha Huff MD Subjective: * Chief Complaints: * 1 . 3m COPD. * Medical History: Objective: * Vitals: Assessment: Plan: * Treatment: * * Electronic signature of Darshan Contreras DO on 01/09/2025 at 11:36 AM EDTSign off status: PendingVisit Status:?R/S By O/P (Rescheduled by Office/Provider) * Provider: Christy Contreras DO Date: 0 12/11/2023 Generated for Printing/Faxing/eTransmitting on:?01/09/2025 11:36 AM EDT
--- OUTSIDE RECORDS SUMMARY | 2024-12-17 06:00 | XMS_ITS ---
Author Organization [facility] in [place] Address [address] [place] [address] Care Team Providers Care Legal Process Specialist Name Role Phone Refugio YEH, Siddhartha Primary Care Provider Unavailab Darshan Song Unavailable [phone] REASON FOR VISIT 3m COPD Encounters Encounter Location Date Provider Diagnosis Pulmonary Medicine [address] [address] 12/17/2024 Darshan Contreras Plan Of Treatment No Information Progress Notes * Drew HODGE SDOB: [birth year] (54 yo M)Acc No.[id number]:12/17/2024 UNLOCKED PROGRESS NOTE Follow Up Patient: Drew SMALLWOOD :?Darshan Contreras DODOB:1970???Age:54 Y ???Sex:MaleDate:12/17/2024Phone:[phone]:[address] [place] [id number]:Siddhartha Huff MD Subjective: * Chief Complaints: * 1 . 3m COPD. * Medical History: Objective: * Vitals: Assessment: Plan: * Treatment: * * Electronic signature of Darshan Contreras DO on 01/09/2025 at 11:36 AM EDTSign off status: PendingVisit Status:?CANC (Cancelled) * Provider: Christy Contreras DO Date: 1 Generated for Printing/Faxing/eTransmitting on:?01/09/2025 11:36 AM EDT
--- OUTSIDE RECORDS SUMMARY | 2025-01-09 11:36 | XMS_ITS | Patient Health Record ---
Author Organization [facility] in [place] Address [address] [place] [address] Care Team Providers Care Packaging Machine Supplies Distributor Name Role Phone Siddhartha Huff MD Primary Care Provider UnavailDarshan Yu Unavailable [phone] Allergies No Known Allergies Results Component Value Reference Range Notes CT chest wo con (Not yet rev iewed by provider) Interpretation: Performing Lab: Notes/Report: Source Facility: [place] [address] CT Scan Report Signed Patient: ALONA HODGE MR#: [id number] : 1970 Acct:[id number] Age/Sex: 54 / M ADM Date: 12/15/24 Loc: CT Attending Dr: Darshan Espino D.O. Ordering Physician: Darshan Espino D.O. Date of Service: 12/15/24 Procedure(s): CT chest wo con Accession Number(s): [id number] cc: Siddhartha Huff M.D. [place] [address] Patient Name: ALONA HODGE MRN: [id number] date: 1970 Sex: M Assigned Patient Location: CT Current Patient Location: CT Accession/Order Number: [id number] Exam Date: 12/15/2024 09:27 Report Date: 12/15/2024 10:30 At the request of: DARSHAN ESPINO DO Procedure: CT chest wo con CT CHEST WITHOUT CONTRAST COMPARISON: 11/27/2023 CLINICAL DATA: Follow-up nodularity. Tobacco use. Spiral images were obtained through the chest without contrast. Images were reviewed using both narrow and wide window settings. This CT exam was performed using one or more following dose reduction techniques: Automated exposure control, adjustment of the mA and/or kV according to patient size, or use of iterative reconstruction technique. The heart is normal size. No pericardial effusion is present. There is minimal coronary artery disease. No aortic aneurysm is identified. There is minimal plaque at the aortic arch and proximal great vessels. There are small mediastinal lymph nodes with short axis dimension up to 8 mm. There is slightly larger. The saúl are more difficult to evaluate without contrast however there is no obvious change in contour. There is subtle dextroscoliotic curvature and minor endplate spurring. There is obstructive lung disease with airspace lucencies and subpleural blebs, greatest at the apices. Bronchial dilatation is also again seen. There is new irregular opacity extending along the anterior and lateral aspect of the right upper lobe. Central air collections are noted which could represent cavitation. There are also developing irregular opacities with associated nodularity at the left upper lobe. There are similar nodular asymmetries at the right upper lobe on axial image 28, left upper lobe on axial image 29 and right lower lobe on axial image 70. No other developing nodularity is identified. There is no pleural effusion or pneumothorax. Limited cuts through the upper abdomen show no contributory findings. CT/CT chest wo con IMPRESSION: ADVANCED OBSTRUCTIVE LUNG DISEASE. DEVELOPING BILATERAL UPPER LOBE IRREGULAR OPACITIES WITH ASSOCIATED NODULARITY ON THE LEFT AND POSSIBLE CAVITATION ON THE RIGHT. THIS MAY BE INFECTIOUS OR INFLAMMATORY. FOLLOW-UP IS RECOMMENDED TO ASSESS FOR RESOLUTION. STABLE BILATERAL NODULARITY. SLIGHT INCREASE IN SIZE OF MEDIASTINAL LYMPH NODES. THIS COULD BE REACTIVE. Impression dictated by: Edyta Ignacio M.D. 12/15/2024 10:30 AM Dictation Location: [place] [address] Electronically authenticated by: [id number] Y Date: 12/15/2024 10:30 Dictated By: Edyta Ignacio M.D. Signed By: 12/15/24 1032 DD/ 1030 TD/TT: Coroner/Medical Examiner: Reason For Referral No Information Medications Medication SIG (Take, Route, Frequency, Duration) Notes Start Date End Date Status buPROPion HCl ER (XL) 300 MG 1 tablet Orally QD; Duration: 90 days ActiveBreztri Aerosphere 160/9/4.8 mcg 2 puffs inhalation BID; Duration: 90 days Rinse after use ; Dispense #3 inhalers 4ActiveMucinex 600 MG2 tablet Orally BID; Duration: 90 daysActive Citalopram Hydrobromide 20 MG1 tablet Orally Once a dayActiveVentolin HFA 108 (90 Base) MCG/ACT 2 puffs as needed for SOB Inhalation Q4H; Duration: 90 days Dispense #3 inhalers ZACHARY - do not substitute for generic; not covered by MedicaidActiveLevothyroxine Sodium 112 MCG1 tablet in the morning on an empty stomach Orally Once a day ActiveAlbuterol Sulfate (2.5 MG/3ML) 0.083%3mL Inhalation QID; Duration: 30 days ActiveLovastatin 40 MG1 tablet with the evening meal Orally Once a dayActive Multi Complete -as directed OrallyActive Immunizations Vaccine Route Administration Date Status Comme nts SARS-COV-2 (COVID 19) bivale nt 30 mcg/0.3 ml dose Unknown 01/27/2022 Administered Social History Tobacco Use: Social History Observation Description Date Details (start date - stop date) Former Smoker NA - NA Tobacco Use/Smoking Question Answer Notes Patient is a former smoker Additional Findings: Tobacco Ksp-HbmrSb-wbwfz cigarette smoker (1-9/day)Tobacco Control (Standard) Question Answer Notes Tobacco use: Former smoker How long has it been since you last smoked?6-12 monthsAdditional Findings: Tobacco veq-gxtgIq-ypwpcibe cigarette smoker (10-19/day) Problems Problem Type SNOMED Code ICD Code Onset Dates Problem Status W/U Status Risk Notes Problem Generalized anxiety disorder (68764052) Generalized anxiety disorder (F41.1) ActiveconfirmedProblemCentrilobular emphysema (64681405)Centrilobular emphysema (J43.2)ActiveconfirmedProblemLong-term current use of inhaled steroid (799908957)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 (current) use of inhaled steroids (Z79.51)Activeconfirmed ProblemCoronary artery disease (29052409)CAD (coronary artery disease) (I25.10) ActiveconfirmedProblemCOPD - Chronic obstructive pulmonary disease (21479716) Chronic obstructive pulmonary disease, unspecified COPD type (J44.9)Active confirmedProblemTobacco user (077239818)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)ActiveconfirmedProblemNondependent cannabis abuse (641575552) Marijuana use, continuous (F12.90)ActiveconfirmedProblemLung field abnormal (697426922)Mass of upper lobe of left lung (R91.8)ActiveconfirmedProblem Screening for malignant neoplasm of lung (029735180)Encounter for screening for lung cancer (Z12.2)Activeconfirmed Encounters Encounter Location Date Provider Diagnosis Pulmonary Medicine [place] [address] [place] [address] 06/23/2024 Darshan Espino Centrilobular emphys bernie J43.2 Pulmonary Medicine [place] [address] [place] [address] 06/26/2024 Darshan [facility] Pul[facility] [address] [place] [address]/10/2025 Darshan EspinoCentrilobular emphysema J43.2 and Cigarette nicotine dependence in remission F17.211 Assessments Encounter Date Diagnosis (ICD Code) Assessment Notes Treatment Notes Treatment Clinical Notes Section Notes 06/23/2024 Centrilobular emphysema (ICD-10 - J43.2) 09/25/2024entrilobular emphysema (ICD-10 - J43.2)5Cigarette nicotine dependence in remission (ICD-10 - F17.211) Plan Of Treatment Pending Test Test Name Order Date CT chest wo con 12/15/2024 Future Test Test Name Order Date CT Chest w/o contrast 12/01/2024 Insurance Providers Payer Name Payer Address Payer Phone Subscriber Number Group Number Insured Name Patient Relationship to Insured Coverage Start Date Coverage End Date [employer] [place] [employer] [address] [place] [phone] [id number] Aleah Hodge - patient is the insured Medical (General) History Medical History History ICD Code Chronic obstructive pulmonary disease, u nspecified J44.9 Generalized anxiety disorder F41.1 Dyslipidemia E78.5 Hypothyroidism E03.9 CAD (coronary artery disease) I25.10 Vitamin D deficiency E55.9 Marijuana use, continuous F12.90 [facility] F17.211 Surgical History Surgery Date(Month/Year) Cardiac Catheterization 06/28/2023 Bronchoscopy-07/10/2022 & 09/06/2022 Back Surgery
--- OUTSIDE RECORDS SUMMARY | 2025-01-09 11:36 | XMS_ITS | Patient Health Record ---
Author Organization [facility] Address [address] [place] [address] Care Team Providers Care Hand Assembler Name Role Phone Siddhartha Huff Primary Care Provider Brad Luke Unavailable [phone] Zoe Isaac Unavailable Allergies No Known Allergies Results Component Value Reference Range Notes [facility]- CERVICAL 4 VIEW Reviewed date:08/19/2024 09:42:59 AM Interpretation: Performing Lab: Notes/Report: Reason For Referral Reason DENIED...........PLE ASE OBTAIN AUTHORIZATION FOR MRI CERVICAL SPINE Diagnosis 1 Cervical radiculopat hy (M54.12) Referral Organization [facility] Referring Provider First Name Brad Referring Provider Last Name Lilian Referring Provider Speciality Orthopedic Surgery Referred Organization [facility] Referred Address [place], [place], Procedure 1 MRI Cervical w/o dye (45156) General Notes Julia Elise 025 12:44:55 PM >PENDING [facility]X #[id number], Julia lEise 06/24/2024 07:43:01 AM >STILL PENDINGArik Amy 06/25/2024 [...] [facility] 07/10/2024 09:41:05 AM > PER [facility], HOLD OFF ON CERVICAL MRI. FOLLOW UP FOR SHOULDER Referral Priority Routine Reason APPROVED .......CHEL STARK OBTAIN AUTHORIZATION FOR LEFT SHOULDER MRI Diagnosis 1 Acute pain of left s arvind (M25.512) Referral Organization [facility] Referring Provider First Name [facility] Referring Provider Last Name [place] Referring Provider Speciality Orthopedic Surgery Referred Organization [facility] Referred Address [place], [place], Procedure 1 MRI Joint Upper Ext w/o Dye (10595) General Notes Julia Elise 025 12:40:46 PM >PENDING [facility] #[id number] CLINICAL ATTACHEDArik Amy 06/23/2024 01:37:05 PM >APPROVED PER [facility] AUTH #[id number] VALID 06/23/2024-07/23/2024 COPY IN CHART MA NOTIFIED REF FAXED TO Elias MAS Kimberly 06/23/2024 02:51:54 PM > Faxed order to Estephan[facility] Referral Priority Routine Reason DENIED...........ple ase obtain authorization for MRI Cervical Diagnosis 1 Cervical radiculopat hy (M54.12) Referral Organization [facility] Referring Provider First Name Brad Referring Provider Last Name Lilian Referring Provider Speciality Orthopedic Surgery Referred Organization [facility] john Referred Address [place], [place], Procedure 1 MRI Cervical w/o dye (68480) General Notes Julia Elise 025 10:38:58 AM >PENDING [facility] #[id number] CLINICAL ATTACHED, Julia Elise 07/17/2024 07:25:00 AM [...] try PT/OT. Sent order to [facility] in [place] and scheduled a follow up appointment. Referral Priority Routine Reason APPROVED .......PLEA SE OBTAIN AUTHORIZATION FOR MRI CERVICAL Diagnosis 1 Cervical radiculopat hy (M54.12) Referral Organization [facility] Referring Provider First Name Brad Referring Provider Last Name Lilian Referring Provider Speciality Orthopedic Surgery Referred Organization [facility] Garrison lopez Referred Address [place], [place], Procedure 1 MRI Cervical w/o dye (05467) General Notes Julia Elise 025 11:34:37 AM >PENDING [facility] TRX #[id number] NEED DICTATION OF LAST NOTE TO UPLOAD, Ceci [facility] 08/18/2024 02:45:52 PM > Note is complete, Julia Elise 08/18/2024 02:56:09 PM >UPLOADEDArik Amy 08/19/2024 09:10:49 AM >STILL PENDINGArik Amy 08/22/2024 11:28:17 AM >STILL PENDINGArik Amy 08/25/2024 08:45:52 AM >STILL PENDINGArik Amy 08/26/2024 07:42:31 AM >STILL PENDINGArik Amy 08/27/2024 08:02:49 AM >APPROVED PER [facility] AUTH #[id number] VALID 08/18/2024-09/17/2024 COPY IN CHART MA NOTIFIED REF FAXED TO Elias MAS Kimberly 08/27/2024 08:36:34 AM > Faxed order to Estephanie Referral Priority Routine Medications Medication SIG (Take, Route, Frequency, Duration) Notes Start Date End Date Status buPROPion ActivelevothyroxineActivelovastatinActiveMucus ReliefActivepredniSONEActive doxycyclineActivecefdinirActivecitalopramActive Social History Tobacco Use: Social History Observation Description Date Details (start date - stop date) Never Smoker NA - NA AUDIT-C (Standard) Question Answer Notes Did you have a drink containing alcohol in the p ast year? No Bwvrqn2FbnhiyjtlwsnuvItwsqxnlNjocyqk Control (Standard) Question Answer Notes Tobacco use: Nonsmoker Problems Problem Type SNOMED Code ICD Code Onset Dates Problem Status W/U Status Risk Notes Problem 26735318 Cervical radiculopathy (M54. 12) Activeconfirmed Vital Signs Height 5'7 in 08/18/2024 Jtcphh554 lbs08/18/2024BMI25.8408/18/2024 Encounters Encounter Location Date Provider Diagnosis [facility] [address] [place] [address] 06/23/2024 Brad Quintana Acute pain of left shoulder M25.512 and Cervical radiculopathy M54.12 [facility] [address] [place] [address] 07/14/2024 Brad Quintana Cervical radiculopathy M54.12 [facility] [address] [place] [address] 08/18/2024 [facility] Cervical radiculopathy M54.12 Assessments Encounter Date Diagnosis (ICD Code) Assessment Notes Treatment Notes Treatment Clinical Notes Section Notes 06/23/2024 Cervical radiculopathy (ICD-10 - M54.12) 5Acute pain of left shoulder (ICD-10 - M25.512)5Cervical radiculopathy (ICD-10 - M54.12)5Cervical radiculopathy (ICD-10 - M54.12) Cervical radiculopathy Cervical degenerative disc disease C3 on 4, C4 on 5 dynamic spondylolisthesis 06/23/2024Other I discussed with the patient that his left shoulder weakness is likely secondary to a rotator cuff tear. Given his cervical radiculopathy I have recommended an MRI scan of his cervical spine as well for further evaluation. He will follow-up once the studies are complete. Import medication 07/14/2024Other For his significant weakness in his left upper extremity with a normal MRI of his shoulder I have recommended an MRI of his C-spine to evaluate for a large disc herniation causing profound weakness in his left upper arm and the need for surgical intervention. He will follow-up once the MRI of his cervical spine is complete. Import medication 08/18/2024OtherPatient is still having gross weakness in his [...] MRI : Shoulder W/O Contrast Left - 15704 06/23/2024 MRI : Cervical Spine W/O Contrast - 7214 1 08/18/2024 PT/OT - Eval and Treat 07/14/2024 MRI : Cervical Spine W/O Contrast - 7214 1 06/23/2024 Insurance Providers Payer Name Payer Address Payer Phone Subscriber Number Group Number Insured Name Patient Relationship to Insured Coverage Start Date Coverage End Date Medicaid [employer] [place] [address] [place] [phone] [id number] Yvonne PATINO - patient is the jgdisck22 2024 Medical (General) History Medical History History ICD Code Asthma/COPD Respiratory problems:Lung DiseaseProblems with AnesthesiaHeart problems: HypothyroidismDepressionMental Illness:AnxietySurgical History Surgery Date(Month/Year) Back surgery
--- OUTSIDE RECORDS SUMMARY | 2025-01-09 11:36 | XMS_ITS | Clinical Summary ---
Author Organization [facility] Address [address] [place] [address] Care Team Providers Care Production Quality Analyst Name Role Phone Siddhartha Huff MD Primary Care Provider [phone] Allergies No known active allergies Medications MedicationSigDispense QuantityRefillsLast FilledStart DateEnd DateStatus citalopram (CeleXA) 20 mg tablet Take 30 mg by mouth in the morning.11/14/2022ctive buPROPion XL (Wellbutrin XL) 150 mg 24 hr tablet Take 150 mg by mouth in the morning.11/14/2022ctive levothyroxine (Synthroid, Levoxyl) 112 mcg tablet 1 (one) time each day at the same time.10/24/2021ctive Ventolin HFA 90 mcg/actuation inhaler Inhale 2 puffs every 4 (four) hours if needed.11/14/2022ctive aspirin 81 mg EC tablet Take 81 mg by mouth in the morning.Active Breztri Aerosphere 160-9-4.8 mcg/actuation HFA aerosol inhaler Inhale 2 puffs in the morning and at bedtime.Active tamsulosin (Flomax) 0.4 mg 24 hr capsule Take 0.4 mg by mouth in the morning.Active omeprazole (PriLOSEC) [address] capsule Take 40 mg by mouth before breakfast.Active carvedilol (Coreg) 3.125 mg tablet Indications:Angina pectoris, unstable (CMS/HCC),Coronary-myocardial bridgeTake 1 tablet (3.125 mg) by mouth with breakfast and with evening meal. 180 tablet 304504/ctive ezetimibe (Zetia) 10 mg tablet Indications:Coronary artery disease involving wainwright coronary artery of wainwright heart without angina pectoris,Mixed hyperlipidemiaTake 1 tablet (10 mg) by mouth in the morning. 90 tablet 306//514152/6Active rosuvastatin (Crestor) 20 mg tablet Indications:Coronary artery disease due to lipid rich plaqueTake 1 tablet (20 mg) by mouth at bedtime. 90 tablet 308//260057/6Active Active Problems ProblemNoted DateDiagnosed DateCentrilobular nurpwcdyz71/30/2025ervical kgbpjfajqyyvg46/30/2025Long term (current) use of inhaled uemrakwi12/30/2025Mass of upper lobe of left lung09/15/2024Nondependent cannabis abuse09/15/2024hronic neck pain07/21/2024Encounter for long-term current use of exxkhpeiim76/04/2024 Gastroesophageal reflux disease without metpdjqpspn66/04/2024Screening PSA (prostate specific antigen)01/21/2024therosclerotic heart disease of wainwright coronary artery without angina heaivkce71/08/2024 Overview (10/15/2023): Last Assessment & Plan: No pain and continue medication. Follow up with cardiology. BPH associated with eqiezrfc12/08/2024 Overview (10/15/2023): Last Assessment & Plan: Increased urinary symptoms and try flomax. PSA normal in January. MDD (major depressive disorder), recurrent episode, zgwffsyg78/08/2024 Overview (10/15/2023): Last Assessment & Plan: Worsening symptoms and increase celexa. Warned will take 2-3 weeks to notice improvement in mood. Continue wellbutrin. Dysfunction of left eustachian tube06/22/2023 Overview (10/15/2023): Last Assessment & Plan: No wax and fluid behind TM. Treat with prednisone and start flonase. If no improvement may need ENTreferral. Smefxjkwfyh89/05/2024Vitamin D iszytpzdis91/05/2024ngina pectoris, unstable 05/25/2023hronic obstructive pulmonary shthzpx85yslipidemia eneralized anxiety wpslbxhi03 Hyperlipidemia, tprbtxjsuxq16Hypothyroidism12/11/2022 12/11/2022Tobacco useUnspecified symptoms and signs involving the musculoskeletal Encounters DateTypeDepartmentCare OkpgPpxfutrlahr52/19/2025[facility] [place] [address] [place] [address] Clau Wright MA Coronary artery disease due to lipid rich plaquefrom Last 3 Months Family History Medical HistoryRelationNameCommentsHeart attackFatherpacemakerFather's Brother Heart attackMotherRelationNameStatusCommentsFatherDeceasedFather's BrotherMother Social History Tobacco UseTypesPacks/DayYears UsedDateSmoking Tobacco: FormerCigarettes Smokeless Tobacco: Never Tobacco Cessation:Counseling Given: Not Answered Alcohol UseStandard Drinks/WeekCommentsYes0 (1 standard drink = 0.6 oz pure alcohol)very occasionalUT Safety & EnvironmentAnswerDate RecordedFear of Current or Ex-PartnerNot on file05/10/2023Emotionally AbusedNot on file05/10/2023 Physically AbusedNot on file05/10/2023Sexually AbusedNot on file05/10/2023 Physically or Sexually AbusedNot on file05/10/2023Sex and Gender Information ValueDate RecordedSex Assigned at BirthNot on fileLegal LxeGlha9412/07/2022 3:52 PM EDTGender IdentityNot on fileSexual OrientationNot on file Last Filed Vital Signs Vital SignReadingTime TakenCommentsBlood Tlnaxrfo323/7906 2:44 PM EDT Soybk8577 2:44 PM EDTTemperature--Respiratory Wctu3257/01/2024 11:00 AM EDTOxygen Hcdxraikiy49%09/15/2024 2:44 PM EDTInhaled Oxygen Concentration-- Hmmlld66.2 kg (157 lb)09/15/2024 2:44 PM QWVEkzlwy749.2 cm (5' 7 )09/15/2024 2:44 PM EDTBody Mass Index24.59009/15/2024 2:44 PM EDT Plan of Treatment Health MaintenanceDue DateLast DoneCommentsCT Ajvceszyddpl22/02/1969Colonoscopy 1968Colorectal Cancer Mxldlxlbb10/02/1969Diabetes: Hemoglobin A1C 1968FIT-DNA1968FIT1968FOBT1968 7605Pbzbmnsgwqwac67/02/1969 Depression Jnfnmmaip07/02/1981Hepatitis B Vaccines (1 of 3 - 19+ 3-dose series) 1987Pneumococcal Vaccine: Pediatrics (0 to 5 Years) and At-Risk Patients (6 to 64 Years) (1 of 2 - PCV)1987Adult Crkwhhb5504/20/1990Zoster Vaccines (1 of 2)2018COVID-19 Vaccine ( season)511/01/2022, 08/09/2021, 01/24/2021, Additional history existsInfluenza Vaccine (#1) 11/17/2024HIB VaccinesAged OutNo longer eligible based on patient's age to complete this topicHPV VaccinesAged OutNo longer eligible based on patient's age to complete this topicIPV VaccinesAged OutNo longer eligible based on patient's age to complete this topicMeningococcal B VaccineAged OutNo longer eligible based on patient's age to complete this topicMeningococcal VaccineAged OutNo longer eligible based on patient's age to complete this topicRotavirus Vaccines Aged OutNo longer eligible based on patient's age to complete this topic Insurance Care Teams Team MemberRelationshipSpecialtyStart DateEnd Date Siddhartha Huff MD [address] [place] [address] PCP - [facility]12/11/22
--- OUTSIDE RECORDS SUMMARY | 2025-01-09 11:36 | XMS_ITS | Clinical Summary ---
Author Organization [facility] Address [address] [place] [address] Phone Care Team Providers Care Cupola Liner Name Role Phone Unavailable Primary Care Provider Unavailabl e Encounters DateTypeDepartmentCare TwmlZtwpmxusybe81/23/2025Orders Only [facility] [address] [place] [phone] Gabriella Jon MD 01/07/2025Orders Only [facility] [address] [facility] [address] [place] [phone] Jorge Mace MD Lung nodule (Primary Dx); Pre-op testingfrom Last 3 Months Social History Tobacco UseTypesPacks/DayYears UsedDateSmoking Tobacco: Never AssessedSex and Gender InformationValueDate RecordedSex Assigned at BirthNot on fileLegal Sex Male08/11/2022 2:37 PM EDTGender IdentityNot on fileSexual OrientationNot on file Last Filed Vital Signs Vital SignReadingTime TakenCommentsBlood Pressure--Pulse--Temperature-- Respiratory Rate--Oxygen Saturation--Inhaled Oxygen Concentration--Bgcbvj79 kg (176 lb 5.9 oz)09/06/2022 10:51 AM YPEDesopk256.1 cm (5' 6.97 )09/06/2022 10:51 AM EDTBody Mass Index27.65009/06/2022 10:51 AM EDT Plan of Treatment Health MaintenanceDue DateLast DoneCommentsCT Bkclwfjmxqsu32/02/1969Colonoscopy 1968Colorectal Cancer Mtgcsfbdl35/02/1969FIT-DNA (Cologuard)1968FIT 1968HIV Dwpvlqhnn88/02/1969Lipid Panel02/02/7708Gejiupwftxgpa48/02/1969TSH Level1968Yearly Adult Awzwywmi25/02/1969MMR Vaccines (1 of 1 - Standard series)1969Diabetes Wjnvzdhic08/02/1987Hepatitis C Xnghhvwcv85/02/1987 Hepatitis B Vaccines (1 of 3 - 19+ 3-dose series)1987Pneumococcal Vaccine (1 of 2 - PCV)1987DTaP/Tdap/Td Vaccines (1 - Tdap)1990PSA Prostate Cancer Gdjjvyjpp55/02/2019Zoster Vaccines (1 of 2)2018Influenza Vaccine (#1)5COVID-19 Vaccine (1 - season)2024HIB VaccinesAged OutNo longer eligible based on patient's age to complete this topicHPV Vaccines Aged OutNo longer eligible based on patient's age to complete this topic Hepatitis A VaccinesAged OutNo longer eligible based on patient's age to complete this topicIPV VaccinesAged OutNo longer eligible based on patient's age to complete this topicMeningococcal VaccineAged OutNo longer eligible based on patient's age to complete this topicRotavirus VaccinesAged OutNo longer eligible based on patient's age to complete this topic Procedures Procedure NamePriorityDate/TimeAssociated DiagnosisCommentsCT - ONBASE SCAN Khcdsrq4301/08/2025 4:50 AM EDTCT - ONBASE JSZVOvpnzdj80/23/2025 4:36 AM EDTPET - ONBASE FZDRGfcadab35/23/2025 4:32 AM EDTfrom Last 3 Months Results * CT - OnBase Scan (01/08/2025 4:50 AM EDT) Only the most recent of2 resultswithin the time period is included. Anatomical RegionLateralityModalityComputed Tomography Narrative Authorizing ProviderResult TypeResult StatusHistorical Provider MDIMG CT PROCEDURESFinal Result * PET - OnBase Scan (01/08/2025 4:32 AM EDT)Anatomical RegionLateralityModality Nuclear Medicine Narrative Authorizing ProviderResult TypeResult StatusHistorical Provider MALA VALLEJO PROCEDURESFinal Result from Last 3 Months
--- OUTSIDE RECORDS SUMMARY | 2025-01-09 11:36 | XMS_ITS | Patient Health Record ---
Author Organization [facility] Address [address] [place] [address] Care Team Providers Care Sterile Tech Name Role Phone Brayan Simno Primary Care Provider [phone] Allergies No Known Allergies Reason For Referral No Information Medications Medication SIG (Take, Route, Frequency, Duration) Notes Start Date End Date Status ProAir HFA 108 (90 Base) MCG /ACT Aerosol Solution 2 puffs as needed every 4 hrs Inhalation Inhalation every 4 hrs; Duration: 30 days ActiveDulera 200-5 MCG/ACT AerosolINHALE 2 PUFFS BY MOUTH TWICE DAILY; Duration: 30ActiveCeleXA 20 MG Tablet1 tablet Orally Once a day; Duration: 30 day(s) 10/26/2017ActiveSpiriva Respimat 1.25 MCG/ACT Aerosol SolutionINHALE 2 PUFFS BY MOUTH EVERY DAY; Duration: 30ActiveLevothyroxine Sodium 112 MCG Tablet1 tablet on an empty stomach in the morning Orally Once a day; Duration: 90 daysActive Lovastatin 40 MG Tablet1 tablet Orally QHS; Duration: 30 day(s)Active Social History Tobacco Use: Social History Observation Description Date Details (start date - stop date) Current Smoker NA - NA Sex Assigned At : Social History Observation Description Sex Assigned At Male Social History GeneralSocial InfoQuestionAnswerNotesTransition of Care:ER/UC/hospital since last office visit?NoSpecialist seen since last office visit?NoSubstance abuse/mental health issues of patient/familyPatient -Caffeine UsePOPAbility to understand healthcare/treatmentPatient:GoodTobacco Screen:Are you a:current smoker? How often do you smoke cigarettes?every day? How many cigarettes a day do you smoke?6-10? How soon after you wake up do you smoke your first cigarette? after 60 min? Are you interested in quitting?Thinking about quitting Social/Support Concerns:Patient:NoAlcohol Screening:Did you have a drink containing alcohol in the past year?Yes? How often did you have a drink containing alcohol in the past year?Monthly or less (1 point)? How many drinks did you have on a typical day when you were drinking in the past year?1 or 2 (0 points)Ydaybz5HdhpgbjfkiltzkTxhonzhiBdoolkykj affecting healthPoor/Risky Behaviors:Second Hand Smoke-Communication Barrier:Language Barrier?:NoSection Notes: +ETOH. Cut back.Previously d aily and [...] Denies illegal drug use. +ETOH. Cut back.Previously daily and problematic. +Tobacco. [...] and signs involving the musculoskeletal system (R29.91) ActiveconfirmedProblemTobacco use (612661520)Tobacco use (Z72.0)Activeconfirmed ProblemHyperlipidemia (02108021)Hyperlipidemia, unspecified (E78.5)Active confirmedProblemCOPD - Chronic obstructive pulmonary disease (06250139)Chronic obstructive pulmonary disease, unspecified COPD type (J44.9)Activeconfirmed ProblemDyslipidemia (289026072)Dyslipidemia (E78.5)ActiveconfirmedProblem Hypothyroidism (16638043)Hypothyroidism, unspecified type (E03.9)Activeconfirmed ProblemGeneralized anxiety disorder (08926974)Generalized anxiety disorder (F41.1)Activeconfirmed Plan Of Treatment No Information Insurance Providers Payer Name Payer Address Payer Phone Subscriber Number Group Number Insured Name Patient Relationship to Insured Coverage Start Date Coverage End Date [facility] [address] [place] [address] [id number] Yvonne PATINO - patient is the insuredMEDICAID [facility] [address] [place] [id number], GEORGESelf - patient is the insured Medical (General) History Medical History History ICD Code chronic back pain possible depressionhigh cholesterolUnspecified dtijmbuxenqlje133.9 Hyperlipidemia,Xlsbxoalgfa126.4Generalized anxiety ufevduyt530.02Pain in joint, pelvic region and hbbxa722.45Nausea with cygkslye148.01Tobacco Use Tywkgavk205.1 LEVEL 4undefinedSurgical History Surgery Date(Month/Year) back surgery discectomy - L4-L5 2000 Oral surgery-top teeth pulled. 7 Hospitalization History Reason Date(Month/Year)
--- OUTSIDE RECORDS SUMMARY | 2025-01-09 11:36 | XMS_ITS | Clinical Summary ---
Author Organization [facility] Address [address] [place] [address] Care Team Providers Care Escrow Representative Name Role Phone Siddhartha Huff MD Primary Care Provider [phone] Siddhartha Huff MD Unavailable Allergies No known active allergies Medications MedicationSigDispense QuantityRefillsLast FilledStart DateEnd DateStatus Gkezphe-Ccdgqfrbofi-Pwtonirjna (Breztri Aerosphere) 160-9-4.8 MCG/ACT aerosol every 12 (twelve) hours06/13/2023ctive Ventolin HFA 108 (90 Base) MCG/ACT inhaler Inhale 2 puffs every 4 (four) hours if neededActive albuterol (2.5 MG/3ML) 0.083% nebulizer solution INHALE 3ml BY MOUTH via NEBULIZER FOUR TIMES DAILY06/06/2023ctive aspirin 81 MG EC tablet Take 81 mg by mouth in the morning.Active methocarbamol (Robaxin) 750 MG tablet Take 750 mg by mouth 4 (four) times a day as klirrt5405/03/2023ctive rosuvastatin (Crestor) 20 MG tablet Take 20 mg by mouth in the morning.Active carvedilol (Coreg) 3.125 MG tablet Take 3.125 mg by mouth in the morning and 3.125 mg in the evening. Take with meals.06/28/2023ctive buPROPion XL (Wellbutrin XL) 300 MG 24 hr tablet Indications:MDD (major depressive disorder), recurrent episode, moderate (HCC) Take 1 tablet (300 mg) by mouth Daily01/21/2024ctive levothyroxine (Synthroid, Levoxyl) 112 MCG tablet Indications:Hypothyroidism, unspecifiedTAKE 1 TABLET BY MOUTH DAILY 90 tablet 5Active omeprazole (PriLOSEC) [address] capsule Indications:Gastroesophageal reflux disease without esophagitisTAKE 1 CAPSULE BY MOUTH IN THE MORNING BEFORE MEALS * DO NOT CRUSH OR CHEW * 30 capsule 5Active tamsulosin (Flomax) 0.4 MG 24 hr capsule Indications:BPH associated with nocturiaTAKE 1 CAPSULE BY MOUTH DAILY 30 capsule 5Active citalopram (CeleXA) 40 MG tablet Indications:MDD (major depressive disorder), recurrent episode, moderate (HCC) TAKE 1 TABLET BY MOUTH DAILY 30 tablet 5Active fluticasone (Flonase) 50 MCG/ACT nasal spray Indications:Dysfunction of left eustachian tubeAdminister 2 sprays into each nostril Daily Shake gently. Before first use, prime pump. After use, clean tip and replace cap. 16 g 5Active Active Problems ProblemNoted DateDiagnosed DateChronic neck pain07/21/2024 Assessment & Plan (07/21/2024 9:28 AM EDT): Pain unchanged and follow with specialists. Use ultram PRN. Gastroesophageal reflux disease without yqroxnvghdn65/04/2024 Assessment & Plan (07/21/2024 9:30 AM EDT): Symptoms controlled with medication and continue. Assessment & Plan (01/21/2024 9:40 AM EST): Frequent symptoms and start omeprazole. Encounter for long-term current use of cacxiytxsk01/04/2024Screening PSA (prostate specific antigen)01/21/2024Non-occlusive coronary artery disease 07/25/2023 Assessment & Plan (01/21/2024 9:41 AM EST): No pain and follow with cardiology. Assessment & Plan (07/25/2023 9:37 AM EDT): No pain and continue medication. Follow up with cardiology. MDD (major depressive disorder), recurrent episode, neowoive18/08/2024 Assessment & Plan (07/21/2024 9:30 AM EDT): Symptoms controlled with medication and continue. Assessment & Plan (01/21/2024 9:41 AM EST): Symptoms controlled with medication and continue. Assessment & Plan (07/25/2023 9:37 AM EDT): Worsening symptoms and increase celexa. Warned will take 2-3 weeks to notice improvement in mood. Continue wellbutrin. BPH associated with maadbxdf97/08/2024 Assessment & Plan (07/25/2023 9:36 AM EDT): Increased urinary symptoms and try flomax. PSA normal in January. COPD (chronic obstructive pulmonary disease)06/22/2023 Assessment & Plan (07/21/2024 9:30 AM EDT): Breathing stable and continue inhalers. Follow up with pulmonology. Assessment & Plan (01/21/2024 9:40 AM EST): Breathing stable and continue inhalers. Follow up with pulmonology. Assessment & Plan (07/25/2023 9:36 AM EDT): Breathing stable and continue inhalers. Follow up with pulmonology. Nlsypujyiiag60/05/2024Generalized anxiety /05/2024 Assessment & Plan (07/21/2024 9:30 AM EDT): [...] Symptoms controlled with medication and continue. Adult kyxnrwhonyauqi19/05/2024 Assessment & Plan (01/21/2024 9:40 AM EST): No signs of low thyroid and continue medication. Assessment & Plan (07/25/2023 9:36 AM EDT): No signs of low thyroid and continue medication. Gkqeeevxous84/05/2024Vitamin D /05/2024ysfunction of left eustachian tube06/22/2023 Assessment & Plan (06/22/2023 10:44 AM EDT): No wax and fluid behind TM. Treat with prednisone and start flonase. If no improvement may need ENTreferral. Encounters DateTypeDepartmentCare GpjgFywvpraxdlm97/19/2025Refill [facility] [address] [place] [address] Siddhartha Huff MD Dysfunction of left eustachian tubefrom Last 3 Months Social History Tobacco UseTypesPacks/DayYears UsedDateSmoking Tobacco: VyaavmUmvvatbbra172 04/19/1988 - 04/19/2023Smokeless Tobacco: Never Tobacco Cessation:Counseling Given: Not Answered Social Connection and Isolation PanelAnswerDate RecordedIn a typical week, how many times do you talk on the phone with family, friends, or neighbors?More than three times a week07/24/2023How often do you get together with friends or relatives?Once a week07/24/2023How often do you attend presybeterian or nondenominational services?Never07/24/2023o you belong to any clubs or organizations such as presybeterian groups, unions, fraternal or athletic groups, or school groups?No 07/24/2023How often do you attend meetings of the clubs or organizations you belong to?Never07/24/2023re you , , , , never , or living with a partner?Ejlcsmok44/07/2024UDIT-CAnswerDate Recorded Q1: How often do you have a drink containing alcohol?Never07/24/2023Q2: How many drinks containing alcohol do you have on a typical day when you are drinking? Patient does not drink07/24/2023Q3: How often do you have six or more drinks on one occasion?Never07/24/2023Overall Financial Resource Strain (CARDIA)AnswerDate RecordedHow hard is it for you to pay for the very basics like food, housing, medical care, and heating?Hard07/24/2023[facility] [place] [facility] Occup[facility] Health - Occupational Stress QuestionnaireAnswerDate RecordedDo you feel stress - tense, restless, nervous, or anxious, or unable to sleep at night because your mind is troubled all the time - these days?To some gotccx3507/24/2023Exercise Vital SignAnswerDate RecordedOn average, how many days per week do you engage in moderate to strenuous exercise (like a brisk walk)?7 days07/24/2023On average, how many minutes do you engage in exercise at this level?30 min07/24/2023Hunger Vital SignAnswerDate RecordedWithin the past 12 months, you worried that your food would run out before you got the money to buymore.Often true07/24/2023 Within the past 12 months, the food you bought just didn't last and you didn't have money to get more.Sometimes true07/24/2023RAPARE - TransportationAnswer Date RecordedIn the past 12 months, has lack of transportation kept you from medical appointments or from getting medications?No07/24/2023In the past 12 months, has lack of transportation kept you from meetings, work, or from getting things needed for daily living?No07/24/2023Housing Stability Vital SignAnswer Date RecordedIn the last 12 months, was there a time when you were not able to pay the mortgage or rent on time?No07/24/2023In the last 12 months, how many places have you lived?In the last 12 months, was there a time when you did not have a steady place to sleep or slept in ashelter (including now)?No 07/24/2023Sex and Gender InformationValueDate RecordedSex Assigned at BirthNot on fileLegal AbuVdwl08/10/2023 9:37 AM ESTGender IdentityNot on fileSexual OrientationNot on file Last Filed Vital Signs Vital SignReadingTime TakenCommentsBlood Bttrzurj335/8205 8:58 AM EDT Dvriv480307/21/2024 8:58 AM FYYPsvahigqvtz41.2 ??C (97.1 ??F)07/21/2024 8:58 AM EDTRespiratory Taur031507/21/2024 8:58 AM EDTOxygen Dttqvkjorb35%07/21/2024 8:58 AM EDTInhaled Oxygen Concentration--Olylsq12.5 kg (162 lb)07/21/2024 8:58 AM EDT Xtnlzb627.7 cm (5' 8 )07/21/2024 8:58 AM EDTBody Mass Index24.63007/21/2024 8:58 AM EDT Plan of Treatment Health MaintenanceDue DateLast DoneCommentsCT Yigylxgglrfw57/02/1969FIT-DNA 1968FIT1968FOBT1968Lung Cancer Screening Shared Decision Xnulaw77 1968 6501Arxxixtkwbzim29/02/1969Influenza Vaccine (#1)2024 Hjmfxwdmzcm58/07//2Colorectal Cancer Zcrooqjct20/07/2032 Insurance Care Teams Team MemberRelationshipSpecialtyStart DateEnd Date Siddhartha Huff MD PCP - GeneralFamily Medicine06/22/23 Siddhartha Huff MD [address] [place] [address] [facility]12/18/23
--- OUTSIDE RECORDS SUMMARY | 2025-01-09 11:37 | XMS_ITS | Encounter Summary ---
Author Organization [facility] Address [address] [place] [address] Phone Care Team Providers Care Laboratory Machinist Name Role Phone Unavailable Primary Care Provider Unavailabl e Encounter Details DateTypeDepartmentCare Team (Latest Contact Info)Zkxpqzmkbse37/23/2025Orders Only [facility] [address] [place] [phone] Provider, MD Gabriella [facility] [place] [address] Social History Tobacco UseTypesPacks/DayYears UsedDateSmoking Tobacco: Never AssessedSex and Gender InformationValueDate RecordedSex Assigned at BirthNot on fileLegal Sex Male08/11/2022 2:37 PM EDTGender IdentityNot on fileSexual OrientationNot on filedocumented as of this encounter Plan of Treatment Not on file documented as of this encounter Procedures Procedure NamePriorityDate/TimeAssociated DiagnosisCommentsCT - ONBASE SCAN Orixetz7701/08/2025 4:50 AM EDTCT - ONBASE JWHHUsxzsuh10/23/2025 4:36 AM EDTPET - ONBASE OIBBYwmbnvb89/23/2025 4:32 AM EDTdocumented in this encounter Results * CT - OnBase Scan (01/08/2025 4:50 AM EDT)Anatomical RegionLateralityModality Computed Tomography Narrative Authorizing ProviderResult TypeResult StatusHistorical Provider MALA CT PROCEDURESFinal Result * CT - OnBase Scan (01/08/2025 4:36 AM EDT)Anatomical RegionLateralityModality Computed Tomography Narrative Authorizing ProviderResult TypeResult StatusHistorical Provider MALA CT PROCEDURESFinal Result * PET - OnBase Scan (01/08/2025 4:32 AM EDT)Anatomical RegionLateralityModality Nuclear Medicine Narrative Authorizing ProviderResult TypeResult StatusHistorical Provider MDIMKennedy NM PROCEDURESFinal Result documented in this encounter Visit Diagnoses Not on filedocumented in this encounter
--- OUTSIDE RECORDS SUMMARY | 2025-01-09 11:37 | XMS_ITS | CCD ---
Author Organization [facility] Care Team Providers Care Lode Miner Name Role Phone DR DOT JOSEPH Consulting Unavailable NADERER, DR SIDDHARTHA Corrales Primary Care Unavailable SAMSA ., ARLETH Admitting Unavailable SAMSA ., ARLETH Attending Unavailable SAMSA ., ARLETH Consulting Unavailable NADERER, DR SIDDHARTHA Corrales Primary Care Unavailable SAMSA ., ARLETH Admitting Unavailable SAMSA ., ARLETH Attending Unavailable SAMSA ., ARLETH Consulting Unavailable SAMSA ., ARLETH Consulting Unavailable NADERER, DR SIDDHARTHA Corrales Primary Care Unavailable SAMSA ., ARLETH Admitting Unavailable SAMSA ., ARLETH Attending Unavailable NADERER, DR SIDDHARTHA Corrales Admitting Unavailable NADERER, DR SIDDHARTHA Corrales Attending Unavailable NADERER, DR SIDDHARTHA Corrales Consulting Unavailable NADERER, DR SIDDHARTHA Corrales Primary Care Unavailable NADERER, DR SIDDHARTHA Corrales Admitting Unavailable NADERER, DR SIDDHARTHA Corrales Attending Unavailable NADERER, DR SIDDHARTHA Corrales Consulting Unavailable NADERER, DR SIDDHARTHA Corrales Primary Care Unavailable SAMSA ., ARLETH Consulting Unavailable NADERER, DR SIDDHARTHA Corrales Primary Care Unavailable SAMSA ., ARLETH Admitting Unavailable SAMSA ., ARLETH Attending Unavailable SAMSA ., ARLETH Consulting Unavailable NADERER, DR SIDDHARTHA Corrales Primary Care Unavailable SAMSA ., ARLETH Admitting Unavailable SAMSA ., ARLETH Attending Unavailable SAMSA ., ARLETH Consulting Unavailable NADERER, DR SIDDHARTHA Corrales Primary Care Unavailable SAMSA ., ARLETH Admitting Unavailable SAMSA ., ARLETH Attending Unavailable ANABELL JONAS Consulting Unavailable TEGAN PAREDES Consulting Unavailable NURY BOYKIN Consulting Unavailable JD PEREZ Consulting Unavailable Unknown, Referring Provider Unavailable Unav ailable UNKNOWN, PCP Primary Care Unavailable Dr. Jorge Barron Referring Unav ailable Sykes, MsChoco Armijo Attending Unav ailable UNKNOWN, PCP Primary Care Unavailable Dr. Jorge Barron Attending Unav ailable Samsa, Dr. Arleth Miles Referring Unavailab le UNKNOWN, PCP Primary Care Unavailable Rodri, Dr. Jorge Dickinson Admitting Unav ailable Rodri, Dr. Jorge Dickinson Attending Unav ailable Unavailable Primary Care Provider Unavailmarky Jones MD, Siddhartha Primary Care Provider [phone] Siddhartha Jones MD Unavailable SIDDHARTHA JONES Attending Unavailable MARCUS ALDRIDGE Attending Unavailable DOT QUINTANA Referring Unavailable CHIQUI ALLEN Attending Unavailable DOT QUINTANA Referring Unavailable RAÚL BURLESON Attending Unavailable DOT QUINTANA Referring Unavailable ONEIL RIVERO Attending Unavailable DOT QUINTANA Referring Unavailable MARCUS ALDRIDGE Attending Unavailable DAVID, DOT Cummings Referring Unavailable MARCUS ALDRIDGE Attending Unavailable DOT QUINTANA Referring Unavailable SIDDHARTHA JONES Attending Unavailable HAIDER SCHOFIELD Attending Unavailable HAIDER SCHOFIELD Attending Unavailable ALONA KNOX Attending Unavailable Medications Current Medications MedicationDrug Class(es)DatesSig (Normalized)Sig (Original)albuterol 0.83 mg/ml inhalation solution (20 sources)beta2-Adrenergic AgonistStart: 25-63-3314pmkqotfmd (2.5 MG/3ML) 0.083% nebulizer solution INHALE 3ml BY MOUTH via NEBULIZER FOUR TIMES DAILY 06/06/2023 ActiveStart: 10-34-0083saas 2 puff(s) by inhalation every four to six hours as neededAlbuterol Sulfate HFA 108 (90 Base) MCG/ACT Inhalation Aerosol Solution INHALE 2 PUFFS EVERY 4-6 HOURS NEEDED. Quantity: 1 Refills: 2 Ordered: 24-Aug-2022 Jennifer Bearden Start : 24-Aug-2022 Activetake 2 puff(s) by inhalation every four hoursVentolin HFA 108 (90 Base) MCG/ACT inhaler Inhale 2 puffs every 4 (four) hours if needed Activeaspirin 81 mg delayed release oral tablet (20 sources)Platelet Aggregation Inhibitor, Nonsteroidal Anti-inflammatory Drug take 1 tablet by mouth in the morningaspirin 81 MG EC tablet Take 81 mg by mouth in the morning. [id number] actuat budesonide 0.16 mg/actuat / formoterol fumarate 0.0048 mg/actuat / glycopyrrolate 0.009 mg/actuat metered dose inhaler (20 sources)Corticosteroid, beta2-Adrenergic AgonistStart: 06-13-2023 Zihfyjz-Blymyezpzep-Jhykyngcen (Breztri Aerosphere) 160-9-4.8 MCG/ACT aerosol every 12 (twelve) hours 06/13/2023 Ykzejb97 hr buPROPion hydrochloride 300 mg extended release oral tablet (20 sources)AminoketoneStart: 06-13-2023 End: 03-12-9302qfen 1 tablet by mouth once dailybuPROPion XL (Wellbutrin XL) 300 MG 24 hr tablet Indications: MDD (major depressive disorder), recurrent episode, moderate (HCC) Take 1 tablet (300 mg) by mouth Daily 01/21/2024 Activecarvedilol 3.125 mg oral tablet (18 sources)alpha-Adrenergic Abdulkadir, beta-Adrenergic BlockerStart: 06-28-2023 End: 62-32-4072hcgr 1 tablet by mouth in the morningcarvedilol (Coreg) 3.125 MG tablet Take 3.125 mg by mouth in the morning and 3.125 mg in the evening. Take with meals. 06/28/2023 Activecitalopram 40 mg oral tablet (20 sources)Serotonin Reuptake InhibitorStart: 83-92-2750ysrq 1 tablet by mouth once dailycitalopram (CeleXA) 40 MG tablet Indications: MDD (major depressive disorder), recurrent episode, moderate (HCC) TAKE 1 TABLET BY MOUTH DAILY 30 tablet 5 07/14/2024 ActiveStart: 95-26-8351aobn 1 tablet by mouth once daily citalopram (CeleXA) 40 MG tablet Indications: MDD (major depressive disorder), recurrent episode, moderate (CMS/HCC) TAKE 1 TABLET BY MOUTH DAILY 30 tablet 5 01/01/2024 ActiveStart: 50-12-8604gnwa 1 tablet by mouth once dailyCitalopram Hydrobromide 20 MG Oral Tablet TAKE 1 TABLET DAILY DIRECTED. Quantity: 1 Refills: 0 Ordered: 24-Aug-2022 Jennifer Bearden Start : 24-Aug-2022 Activefluticasone propionate 0.05 mg/actuat metered dose nasal spray (20 sources)CorticosteroidStart: 18-43-2698szhs 2 spray(s) nasal route once dailyfluticasone (Flonase) 50 MCG/ACT nasal spray Indications: Dysfunction of left eustachian tube instill 2 (TWO) spray IN EACH NOSTRIL DAILY 16 g 2 08/12/2024 ActiveStart: 21-33-1807wiah 2 spray(s) nasal route once daily fluticasone (Flonase) 50 MCG/ACT nasal spray Indications: Dysfunction of left eustachian tube instill 2 (TWO) sprays IN EACH NOSTRIL DAILY; shake gently; BEFORE first use, prime pump; after use cleantip and replace cap 16 g 2 05/14/2024 ActiveStart: 54-83-7407cvpt 2 spray(s) nasal route once daily fluticasone (Flonase) 50 MCG/ACT nasal spray Indications: Dysfunction of left eustachian tube instill 2 (TWO) sprays IN EACH NOSTRIL DAILY *shake gently, BEFORE first use- prime pump, after use cleantip and replace cap 16 g 2 01/29/2024 ActiveStart: 13-73-9706khzu 2 spray(s) nasal route once daily fluticasone (Flonase) 50 MCG/ACT nasal spray Indications: Dysfunction of left eustachian tube instill 2 (TWO) sprays IN EACH NOSTRIL DAILY *shake gently, BEFORE first use- prime pump, after use cleantip and replace cap* 16 g 2 11/05/2023 Activelevothyroxine sodium 0.112 mg oral tablet (20 sources)l-ThyroxineStart: 12-20-1131fvgo 1 tablet by mouth once daily levothyroxine (Synthroid, Levoxyl) 112 MCG tablet Indications: Hypothyroidism, unspecified TAKE 1 TABLET BY MOUTH DAILY 90 tablet 3 06/12/2024 ActiveStart: 22-58-9740pisb 1 tablet by mouth once dailylevothyroxine (Synthroid, Levoxyl) 112 MCG tablet Indications: Hypothyroidism, unspecified (CMS/HCC) TAKE 1 TABLET BY MOUTH DAILY 90 tablet 3 06/13/2023 ActiveStart: 92-81-2712Ngbxybekqeibk Sodium Powder USE DIRECTED. Quantity: 1 Refills: 0 Ordered: 24-Aug-2022 Onel JACOBSONJennifer Start : 24-Aug-2022 Activemethocarbamol 750 mg oral tablet (20 sources)Muscle RelaxantStart: 91-40-0412ltnm 1 tablet by mouth four times daily as neededmethocarbamol (Robaxin) 750 MG tablet Take 750 mg by mouth 4 (four) times a day as needed 05/03/2023 Activeomeprazole 40 mg delayed release oral capsule (20 sources)Proton Pump InhibitorStart: 90-13-7335vnyr 1 capsule by mouth before mealtimeomeprazole (PriLOSEC) [address] capsule Indications: Gastroesophageal reflux disease without esophagitis TAKE 1 CAPSULE BY MOUTH IN THE MORNING BEFORE MEALS * DO NOT CRUSH OR CHEW * 30 capsule 5 07/14/2024 ActiveStart: 01-21-2024 take 1 capsule by mouth before mealtimeomeprazole (PriLOSEC) [address] capsule Indications: Gastroesophageal reflux disease without esophagitis Take 1 capsule (40 mg) by mouth in the morning. Take before meals. Do not crush or chew.. 30 capsule 5 01/21/2024 ActivepredniSONE 50 mg oral tablet (1 source)Start: 06-10-2024 End: 71-04-4499xdtp 1 tablet by mouth once dailypredniSONE (Deltasone) 50 MG tablet Indications: Dysfunction of left eustachian tube Take 1 tablet (50 mg) by mouth Daily for 6 days 6 tablet 06/10/2024 06/16/2024 Activerosuvastatin calcium 20 mg oral tablet (20 sources)HMG-CoA Reductase Inhibitortake 1 tablet by mouth in the morning rosuvastatin (Crestor) 20 MG tablet Take 20 mg by mouth in the morning. Active tamsulosin hydrochloride 0.4 mg oral capsule (20 sources)alpha-Adrenergic BlockerStart: 76-30-8313adfu 1 capsule by mouth once dailytamsulosin (Flomax) 0.4 MG 24 hr capsule Indications: BPH associated with nocturia TAKE 1 CAPSULE BY MOUTH DAILY 30 capsule 5 07/14/2024 ActiveStart: 56-80-8814xyua 1 capsule by mouth once dailytamsulosin (Flomax) 0.4 MG 24 hr capsule Indications: BPH associated with nocturia TAKE 1 CAPSULE BY MOUTH DAILY 30 capsule 5 01/01/2024 ActivetraMADol hydrochloride 50 mg oral tablet (13 sources)Opioid AgonistStart: 07-21-2024 End: 85-31-9411qryb 1 tablet by mouth four times daily as needed for pain traMADol (Ultram) 50 MG tablet Indications: Chronic neck pain Take 1 tablet (50 mg) by mouth 4 (four) times a day as needed for severe pain 120 tablet 07/21/2024 08/20/2024 ActiveStart: 06-30-2024 End: 85-02-9968paod 1 tablet by mouth four times daily as needed for pain traMADol (Ultram) 50 MG tablet Indications: Neck pain Take 1 tablet (50 mg) by mouth 4 (four) timesa day as needed for severe pain for up to 7 days 28 tablet 06/30/2024 07/07/2024 ActiveStart: 06-16-2024 End: 67-98-2667jnul 1 tablet by mouth four times daily as needed for pain traMADol (Ultram) 50 MG tablet Indications: Neck pain Take 1 tablet (50 mg) by mouth 4 (four) timesa day as needed for severe pain for up to 7 days 28 tablet 06/16/2024 06/23/2024 Active Completed/Discontinued Medications MedicationDrug Class(es)DatesSig (Normalized)Sig (Original)60 actuat fluticasone propionate 0.25 mg/actuat / salmeterol 0.05 mg/actuat dry powder inhaler (1 source)Corticosteroid, beta2-Adrenergic AgonistStart: 48-34-1897oqdd 1 dose by mouth every twelve hoursFluticasone-Salmeterol 250-50 MCG/ACT Inhalation Aerosol Powder Breath Activated INHALE 1 DOSE BY MOUTH EVERY 12 HOURS RINSE AND SPIT AFTER USE Quantity: 1 Refills: 5 Ordered: 24-Aug-2022 Jennifer Bearden Start : 24-Aug-2022 Active7 actuat umeclidinium 0.0625 mg/actuat dry powder inhaler (1 source)AnticholinergicStart: 87-68-3390qvlm 1 puff(s) by inhalation once dailyIncruse Ellipta 62.5 MCG/ACT Inhalation Aerosol Powder Breath Activated INHALE 1 PUFF DAILY. Quantity: 1 Refills: 5 Ordered: 24-Aug-2022 Jennifer Ma CNP Start : 8-Angel-2023 Active Problems Active Problems Problem ClassificationProblemDateDocumented DateEpisodic/ChronicAnxiety disorders (20 sources)Anxiety; Translations: [Anxiety state, unspecified]Onset: 09-06-2022 92-96-9967HoqnktwLhtxjfh and circulatory congenital anomalies (2 sources)Malformation of coronary vessels; Translations: [Malformation of coronary vessels]Onset: 13-35-5890SgxmyrtAabnaed obstructive pulmonary disease and bronchiectasis (20 sources)Centrilobular emphysema; Translations: [Chronic obstructive pulmonary disease, unspecified]Onset: 57-80-5744PjsfypsHdozegwn atherosclerosis and other heart disease (20 sources)Atherosclerotic heart disease of [place] coronary artery without angina pectoris; Translations: [Coronary arteriosclerosis]Onset: 09-06-2022 88-16-4568VktfdsrCymwskghx of lipid metabolism (20 sources)Hyperlipidemia, unspecified; Translations: [Pure hypercholesterolemia, unspecified]Onset: 791500-37-1881FbjrlgoLkazwkwkhy disorders (20 sources)Gastro-esophageal reflux disease without esophagitis; Translations: [Gastroesophageal reflux disease without esophagitis]Onset: ChronicHyperplasia of prostate (20 sources)Nocturia due to benign prostatic hypertrophy; Translations: [Benign prostatic hyperplasia with lower urinary tract symptoms]Onset: 07-25-2023 03-78-2754WmjeaytPqfm disorders (20 sources)Depressive disorder; Translations: [Depression, unspecified]Onset: 062165-58-7102UrtmzksApwm disorders (1 source)Mood disorders; Translations: [Depression, unspecified]Onset: 92-99-8998Fkvtcolqrgc deficiencies (20 sources)Vitamin D deficiency, unspecified; Translations: [Vitamin D deficiency]Onset: 300654-87-1680XkcjxxzKvmcd aftercare (1 source)nursing home (current) use of inhaled steroids; Translations: [FDC USE OF INHALED STEROIDS]Onset: 44-22-6245JychtxenTvqhx connective tissue disease (5 sources)Muscle weakness of upper limb; Translations: [Muscle weakness (generalized)]02-75-8819MdrghoujNbgxu lower respiratory disease (6 sources)Other nonspecific abnormal finding of lung field; Translations: [OTH NONSPECIFIC ABN FIND LNG FIELD]Onset: 63-04-1780JnwyfaumTvpqt lower respiratory disease (2 sources)Nodule of lung; Translations: [Solitary pulmonary nodule]Episodic Other lower respiratory disease (4 sources)Solitary pulmonary nodule; Translations: [Solitary pulmonary nodule] Onset: 85-90-3052YccksfxpYfliq lower respiratory disease (1 source)Other forms of dyspnea; Translations: [Other forms of dyspnea]Onset: 68-73-5863PbjgyrdqQmbor lower respiratory disease (1 source)Solitary nodule of lung; Translations: [Solitary pulmonary nodule] 24-45-8798PqxnhfcuBrrmk lower respiratory disease (1 source)Dyspnea; Translations: [Other forms of dyspnea]56-31-2961Vfsozdep Screening and history of mental health and substance abuse codes (1 source)Personal history of nicotine dependence; Translations: [PERSONAL HISTORY OF NICOTINE DEPEND]Onset: 63-95-4765PhaxyldnJqecsrkwvnm; intervertebral disc disorders; other back problems (20 sources)Neck pain; Translations: [Cervicalgia]Onset: 922598-19-5416 EpisodicSubstance-related disorders (8 sources)Nicotine dependence, cigarettes, with unspecified nicotine-induced disorders; Translations: [Nicotine dependence, cigarettes, uncomplicated]Onset: 73-45-4894AajhjsdBvlybas disorders (20 sources)Hypothyroidism, unspecified; Translations: [Hypothyroidism]Onset: 58-92-4795CnkrujdZtzcwaviywid (1 source)CONTACT W/AND (SUSP) EXPOS COVID-19; Translations: [CONTACT W/AND (SUSP) EXPOS COVID-19]Onset: 07-10-2022 Past or Other Problems Problem ClassificationProblemDateDocumented DateEpisodic/ChronicDiabetes mellitus without complication (20 sources)Prediabetes; Translations: [Prediabetes]Onset: 153168-63-2670 EpisodicOther aftercare (1 source)Other custodial (current) drug therapy; Translations: [OTH FDC CURRENT DRUG THERAPY]Onset: 14-98-8773LvhypsxcLudcq aftercare (20 sources)Long-term current use of drug therapy; Translations: [Other custodial (current) drug therapy]Onset: 821266-54-7994MbsdarzaKlakf nutritional; endocrine; and metabolic disorders (1 source)Overweight; Translations: [OVERWEIGHT]Onset: 98-26-6354VxpppwayKcata screening for suspected conditions (not mental disorders or infectious disease) (20 sources)Encounter for screening for malignant neoplasm of prostate; Translations: [Patient encounter status]Onset: 351223-72-3967Fibmnxui Otitis media and related conditions (20 sources)Dysfunction of left eustachian tube; Translations: [Unspecified Eustachian tube disorder, left ear]Onset: 892867-01-7084Mmiaoybc Results Test NameValueInterpretationReference RangeFacilityOffice Visiton 09-15-2024 Follow-up [id number] Alona Patino 1970 M Date Provider Department Center 09/15/2024 JavanALONA KNOX [facility] Family History Problem Relation Age of Onset Heart attack Mother Heart attack Father Other Father's Brother Family Status - Relation Status Age at Mother Father Father's Brother Level of Service:30731 MO OFFICE/OUTPATIENT ESTABLISHED LOW [facility] contraston 84-60-7366Obp[address] [address] Magnetic Resonance Report Signed Patient: ALONA PATINO MR#: [id number] : 1970 Acct:[id number] Age/Sex: 54 / M ADM Date: 09/03/24 Loc: MRI Attending Dr: Zoe OLSEN Ordering Physician: Zoe Hendricks Date of Service: 09/03/24 Procedure(s): MR cervical spine wo con Accession Number(s): [id number] cc: Siddhartha Jones M.D.; Zoe Hendricks [address] [address] Patient Name: ALONA PATINO MRN: [id number] date: 1970 Sex: M Assigned Patient Location: MRI Current Patient Location: MRI Accession/Order Number: [id number] Exam Date: 09/03/2024 15:06 Report Date: 09/03/2024 15:17 At the request of: ZOE OLSEN Procedure: MR cervical spine wo con MR cervical spine wo con 09/03/2024 1:35 PM SIGNS AND SYMPTOMS: Neck pain with radiculopathy into left upper extremity, left arm weakness PROTOCOL: Multiplanar multisequence MR images of the cervical spine without IV contrast COMPARISON: 06/13/2024 FINDINGS: There is 4 mm of anterolisthesis of C4 upon C5. The bones are in anatomic alignment otherwise. There is preservation of vertebral body heights. There is moderate disc height loss at C3-C4 and C4-C5. There is severe disc height loss at C5-C6 and C6-C7. There is Modic type II fatty endplate degenerative change at C5-C6. There is Modic type I endplate edema at C4-C5. The cord is normal in signal. No epidural or paraspinous fluid collection is appreciated. The visualized paraspinous soft tissues are within normal limits. The prevertebral soft tissues are within normal limits. At C2-C3: There is a normal disc, central canal, and neural foramen. At C3-C4: There is a broad-based disc bulge with facet hypertrophy and uncovertebral joint spurring. There is moderate to severe bilateral neural foraminal narrowing with moderate to severe spinal canal stenosis. At C4-C5: There is a broad-based disc bulge with uncovertebral joint spurring and facet hypertrophy. There is moderate severe left and mild right neural foraminal narrowing. There is moderate spinal canal narrowing. At C5-C6: There is facet hypertrophy with uncovertebral joint spurring. There is severe bilateral neural foraminal narrowing left greater the right with moderate to severe spinal canal narrowing. At C6-C7: There is uncovertebral joint spurring and facet hypertrophy with moderate bilateral neural foraminal stenosis. There is mild spinal canal stenosis. At C7-T1: There is a normal disc, central canal, and neural foramen. MR/MR cervical spine wo con IMPRESSION: No cord compression or cord signal abnormality. At C3-C4: There is a broad-based disc bulge with facet hypertrophy and uncovertebral joint spurring. There is moderate to severe bilateral neural foraminal narrowing with moderate to severe spinal canal stenosis. At C4-C5: There is a broad-based disc bulge with uncovertebral joint spurring and facet hypertrophy. There is moderate severe left and mild right neural foraminal narrowing. There is moderate spinal canal narrowing. There is 4 mm of anterolisthesis of C4 upon C5 similar to the prior radiographs. At C5-C6: There is facet hypertrophy with uncovertebral joint spurring. There is severe bilateral neural foraminal narrowing left greater the right with moderate to severe spinal canal narrowing. Impression dictated by: Abbe Neves M.D. 09/03/2024 3:17 PM Dictation Location: [place] [address] Electronically authenticated by: [id number] Y Date: 09/03/2024 15:17 Dictated By: Abbe Neves M.D. Signed By: 09/03/24 1519 DD/ 151 TD/TT: (more content not included)...TBHRadiology, Radiologist, MD - 09/03/2024 [place] [address] Magnetic Resonance Report Signed Patient: ALONA PATINO MR#: [id number] : 1970 Acct:[id number] Age/Sex: 54 / M ADM Date: 09/03/24 Loc: MRI Attending Dr: Zoe OLSEN Ordering Physician: Zoe Hendricks Date of Service: 09/03/24 Procedure(s): MR cervical spine wo con Accession Number(s): [id number] cc: Siddhartha Jones M.D.; Zoe Hendricks [place] [id number] Patient Name: ALONA PATINO MRN: [id number] date: 1970 Sex: M Assigned Patient Location: MRI Current Patient Location: MRI Accession/Order Number: [id number] Exam Date: 09/03/2024 15:06 Report Date: 09/03/2024 15:17 At the request of: ZOE OLSEN Procedure: MR cervical spine wo con MR cervical spine wo con 09/03/2024 1:35 PM SIGNS AND SYMPTOMS: Neck pain with radiculopathy into left upper extremity, left arm weakness PROTOCOL: Multiplanar multisequence MR images of the cervical spine without IV contrast COMPARISON: 06/13/2024 FINDINGS: There is 4 mm of anterolisthesis of C4 upon C5. The bones are in anatomic alignment otherwise. There is preservation of vertebral body heights. There is moderate disc height loss at C3-C4 and C4-C5. There is severe disc height loss at C5-C6 and C6-C7. There is Modic type II fatty endplate degenerative change at C5-C6. There is Modic type I endplate edema at C4-C5. The cord is normal in signal. No epidural or paraspinous fluid collection is appreciated. The visualized paraspinous soft tissues are within normal limits. The prevertebral soft tissues are within normal limits. At C2-C3: There is a normal disc, central canal, and neural foramen. At C3-C4: There is a broad-based disc bulge with facet hypertrophy and uncovertebral joint spurring. There is moderate to severe bilateral neural foraminal narrowing with moderate to severe spinal canal stenosis. At C4-C5: There is a broad-based disc bulge with uncovertebral joint spurring and facet hypertrophy. There is moderate severe left and mild right neural foraminal narrowing. There is moderate spinal canal narrowing. At C5-C6: There is facet hypertrophy with uncovertebral joint spurring. There is severe bilateral neural foraminal narrowing left greater the right with moderate to severe spinal canal narrowing. At C6-C7: There is uncovertebral joint spurring and facet hypertrophy with moderate bilateral neural foraminal stenosis. There is mild spinal canal stenosis. At C7-T1: There is a normal disc, central canal, and neural foramen. MR/MR cervical spine wo con IMPRESSION: No cord compression or cord signal abnormality. At C3-C4: There is a broad-based disc bulge with facet hypertrophy and uncovertebral joint spurring. There is moderate to severe bilateral neural foraminal narrowing with moderate to severe spinal canal stenosis. At C4-C5: There is a broad-based disc bulge with uncovertebral joint spurring and facet hypertrophy. There is moderate severe left and mild right neural foraminal narrowing. There is moderate spinal canal narrowing. There is 4 mm of anterolisthesis of C4 upon C5 similar to the prior radiographs. At C5-C6: There is facet hypertrophy with uncovertebral joint spurring. There is severe bilateral neural foraminal narrowing left greater the right with moderate to severe spinal canal narrowing. Impression dictated by: Abbe Neves M.D. 09/03/2024 3:17 PM Dictation Location: [place] [address] Electronically authenticated by: [id number] Y Date: 09/03/2024 15:17 Dictated By: Abbe Neves M.D. Signed By: 09/03/24 1519 DD/ 16 TD/TT: Help Desk Rep: [facility] HospitalRadiology Study observation (narrative)[facility] Cervical spine WO contrastOrdered By: Radiologist Radiology on [id number] Work Phone: MR SHOULDER LEFT W/Oon [id number] [address] Magnetic Resonance Report Signed Patient: ALONA PATINO MR#: [id number] : 1970 Acct:[id number] Age/Sex: 54 / M ADM Date: 07/01/24 Loc: MRI Attending Dr: Dot Quintana M.D. Ordering Physician: Dot Quintana M.D. Date of Service: 07/01/24 Procedure(s): MR shoulder LT wo con Accession Number(s): [id number] cc: Dot Quintana M.D.; Siddhartha Jones M.D. The [place] [id number] Patient Name: ALONA PATINO MRN: [facility]:[id number] date: 1970 Sex: M Assigned Patient Location: MRI Current Patient Location: MRI Accession/Order Number: [id number] Exam Date: 07/01/2024 12:27 Report Date: 07/01/2024 12:33 At the request of: DOT QUINTANA MD Procedure: MR shoulder LT wo con [...] Hayden Hurd M.D.07/01/2024 12:33 PM Dictation Location: [place] [address] Electronically authenticated by: [id number] Y Date: 07/01/2024 12:33 Dictated By: Hayden Hurd D.O. Signed By: 07/01/24 1235 DD/ 1233 TD/TT: Help Desk Rep:TBHRadiology, Radiologist, MD - 07/01/2024 [place] [address] Magnetic Resonance Report Signed Patient: ALONA PATINO MR#: [id number] : 1970 Acct:[id number] Age/Sex: 54 / M ADM Date: 07/01/24 Loc: MRI Attending Dr: Dot Quintana M.D. Ordering Physician: Dot Quintana M.D. Date of Service: 07/01/24 Procedure(s): MR shoulder LT wo con Accession Number(s): [id number] cc: Dot Quintana M.D.; Siddhartha Jones M.D. [address] [address] Patient Name: ALONA PATINO MRN: [id number] date: 1970 Sex: M Assigned Patient Location: MRI Current Patient Location: MRI Accession/Order Number: [id number] Exam Date: 07/01/2024 12:27 Report Date: 07/01/2024 12:33 At the request of: DOT QUINTANA MD Procedure: MR shoulder LT wo con [...] Hayden Hurd M.D.07/01/2024 12:33 PM Dictation Location: [place] [address] Electronically authenticated by: [id number] Y Date: 07/01/2024 12:33 Dictated By: Hayden Hurd D.O. Signed By: 07/01/24 1235 DD/ 1233 TD/TT: Help Desk Rep: HODAN HealthcareRadiology Study observation (narrative)NOM HealthcareMR SHOULDER LEFT W/OOrdered By: Radiologist Radiology on 70-19-6384FKIL [facility] Work Phone: Office Visiton [phone]-up [id number] Alona Patino 1970 M Date Provider Department Center 04/11/2024 [facility] [facility] Family History Problem Relation Age of Onset Heart attack Mother Heart attack Father Other Father's Brother Family Status - Relation Status Age at Mother Father Father's Brother Level of Service:62411 MO OFFICE/OUTPATIENT ESTABLISHED LOW MDM [facility] WITH AUTO DIFFon 00-75-1809GOPXSZMQR ABSOLUTE AUTO0.1NOMS HealthcareBasophils/100 WBC (Bld)1.4 %0.2 - 2.0 %NOMS HealthcareEosinophils/100 WBC (Bld)11.3 %High0.9 - 7.0 %[facility] Erythrocyte distribution width (RBC) [Ratio]12.7 %11.0 - 15.0 %[facility] Hematocrit (Bld) [Volume fraction]44.5 %42.0 - 54.0 %NOMS HealthcareHemoglobin (Bld) [Mass/Vol]14.8 g/dL14.0 - 18.0 g/dLNOAZ HealthcareIMMATURE GRANULOCYTES ABS AUTO0.01NOMS HealthcareImmature granulocytes/100 WBC (Bld)0.2 %0.0 - 0.5 % NOM HealthcareInterpretation and review of laboratory resultsAbnormalNOAZ HealthcareLYMPHOCYTES ABSOLUTE AUTO1.9NOMS HealthcareLymphocytes/100 WBC (Bld) 28.1 %20.5 - 60.0 %NOMS [facility] HospitalMCH (RBC) [Entitic mass]31.8 pg25.9 - 34.0 pg NOMS HealthcareMCHC (RBC) [Mass/Vol]33.3 g/dL29.9 - 35.2 g/dLNOMS HealthcareMCV (RBC) [Entitic vol]95.7 jOLnih85.0 - 94.0 fLNOMS HealthcareMONOCYTES ABSOLUTE AUTO0.4NOMS HealthcareMonocytes/100 WBC (Bld)6.2 %1.7 - 12.0 %[facility] NEUTROPHILS ABSOLUTE AUTO3.5NOMS HealthcareNeutrophils/100 WBC (Bld)52.8 %43.0 - 75.0 %NOMS HealthcarePlatelet mean volume (Bld) [Entitic vol]8.2 fLLow9.5 - 13.5 fLNOMS HealthcareTBH EO #0.8HighNOMS HealthcareTBH [id number] HealthcareTBH RBC 4.65LowNOMS HealthcareTBH WBC6.7NOMS HealthcareCLINISYNCNOMS HealthcareOffice Visiton 01-42-3062Eihbds-up [id number] Alona Patino 1970 M Date Provider Department Center 10/15/2023 [address] [facility] Family History Problem Relation Age of Onset Heart attack Mother Heart attack Father Other Father's Brother Family Status - Relation Status Age at Mother Father Father's Brother Level of Service:25916 MO OFFICE/OUTPATIENT ESTABLISHED LOW MDM [facility] HospitalAF[facility] Culture/Smearon 23-97-0790Pzktvxllxpoje sp identified Org specific cx Nom (Unsp spec)NO MYCOBACTERIA ISOLATED.[facility] HospitalMycobacterium sp identified Org specific cx Nom (Unsp spec)on 55-79-1566Eknhsuxajrk observation Acid fast stain Nom (Unsp spec) NegativeUnUK HealthcareFungal Culture/Smearon 83-14-6639Hccmun identified Cx Nom (Unsp spec)NO FUNGI ISOLATED. [facility] identified Cx Nom (Unsp spec)on 60-23-5125Tikszv identified Fungus stain Nom (Unsp spec)NegativeUnUK HealthcareCYTOLOGY NON-MANAGER SUPPLY CHAIN PLANNING RESULTS on 75-43-3290Xboltprvr Report Patient Name ALONA PATINO Date of Procedure: 09/06/2022 Date Reported: 09/12/2022 Date Received: 09/06/2022 Date of / Sex 1970 (Age: 52) / M Race: UNKNOWN* Submitting Physician: JORGE BARRON MD Attending Physician: ARLETH ESPINO DO Other [...] refer to concurrent biopsy surgical pathology report ([id number]). Futures Trader: Dr. Slava Mooney consulted on the GMS [...] RAMANA Cardoso. Slide(s) initially screened by a Electrical Controls Technician at [place] [address] Electronically Signed Out By RUTHY BAEZ MD By the signature on this report, the individual or group listed as making the Final Interpretation/Diagnosis certifies that they have reviewed this case. Slide(s) initially screened by a Electrical Controls Technician at [facility] Diagnostic interpretation performed at [address] [place] [address] Rapid Evaluation Fine Needle Aspiration Immediate Read [...] - LEFT UPPER LOBE NODULE Pap stain Non-Special Agent Group Insurance, Pap stain Non-Special Agent Group Insurance, Diff-Quik stain Non-Special Agent Group Insurance, Diff-Quik stain Non-Special Agent Group Insurance, Diff-Quik stain Non-Special Agent Group Insurance, CELL BLOCK, H&E, Initial, H GOMORI'S METHENAMINE SILVER, H ACID FAST BACILLI, ZIEHL-NEELSON, H RECUT H&E, H PAS-FUNGAL, H RECUT H&E B: BRONCHIAL TRIPLE NEEDLE BRUSH OF LEFT UPPER LOBE NODULE Pap stain Non-Special Agent Group Insurance, Diff-Quik stain Non-Special Agent Group Insurance, CELL BLOCK, H&E, Initial C: FINE NEEDLE ASPIRATION 4R LYMPH NODE Pap stain Non-Special Agent Group Insurance, Diff-Quik stain Non-Special Agent Group Insurance, CELL BLOCK, H&E, Initial D: FINE NEEDLE ASPIRATION 4L LYMPH NODE Pap stain Non-Special Agent Group Insurance, Diff-Quik stain Non-Special Agent Group Insurance, CELL BLOCK, H&E, Initial E: FINE NEEDLE ASPIRATION 7 LYMPH NODE Pap stain Non-Special Agent Group Insurance, Diff-Quik stain Non-Special Agent Group Insurance, CELL BLOCK, H&E, Initial F: FINE NEEDLE ASPIRATION 11L LYMPH NODE Pap stain Non-Special Agent Group Insurance, Diff-Quik stain Non-Special Agent Group Insurance, CELL BLOCK, H&E, Initial Gross Description A. [...] HAZY NEEDLE RINSE IN CYTOLYT WITH PARTICLES. [facility] Depa (more content not included)...[facility] HospitalUnMetroHealth Cleveland Heights Medical CenterSURGICAL PATHOLOGY RESULTSon 32-35-3616Vnhxbdaup Report Name ALONA PATINO Pathologist: JUDIE WHITLEY MD Date of Procedure: 09/06/2022 Date Received: 09/06/2022 Date Reported 09/12/2022 Submitting Physician: JORGE BARRON MD Location: [facility]IL Copy To/Referring/Attending: ARLETH ESPINO, DO Other External # FINAL DIAGNOSIS LUNG, LEFT UPPER LOBE NODULE, TRANSBRONCHIAL BIOPSY: --FRAGMENTS OF ALVEOLATED LUNG PARENCHYMA WITH INTERSTITIAL FIBROSIS AND PATCHY CHRONIC INFLAMMATION ADMIXED WITH BLOOD AND FIBRIN. SEE NOTE. --SEE CONCURRENT CYTOLOGY SPECIMEN [id number]. Note: Deeper levels were reviewed. The findings are nonspecific. Clinical correlation with regards to adequacy of sampling is recommended. halie The gross and/or microscopic findings were reviewed in conjunction with pathology resident, Lucia Leal M.D., PhD. Electronically Signed Out By JUDIE WHITLEY MD/HALIE By the signature on this report, the individual or group listed as making the Final Interpretation/Diagnosis certifies that they have reviewed this case. Diagnostic interpretation performed at [facility] [address] [facility] [address] Clinical History: PIPER nodule Specimens Submitted As: A: PIPER NODULE TBBX Gross Description: Received in formalin, labeled with the patient s name and hospital number and PIPER nodule TBBX , are multiple minute pink-white, soft tissue fragments aggregating to 0.8 x 0.3 x 0.3 cm. The specimen is submitted in toto in one cassette. DMB dmb/09/06/2022 [facility] Department of Pathology [address] [place], [place] [address]Bacteria identified Cx Nom (Unsp spec)on 49-11-5024Wonabgdpuxp observation Gram stain Nom (Unsp spec)1+ GRANULOCYTES. NO ORGANISMS SEEN.[facility] Medical CenterTissue/Wound Culture/Smearon 96-28-7156Gxjlchpd identified Cx Nom (Unsp spec)NO GROWTH AEROBICALLY OR ANAEROBICALLY.[facility] HospitalAFB CULTURE/SM, MISUnc Health 24-55-9006JAG CULTURE/SM, [place] PATIENT: ALONA PATINO LOCATION: [facility]#: [id number] : [birth year] AGE: SEX: M ORDERED BY: JORGE BARRON SOURCE: BIOPSY COLLECTED: 09/06/22 17:00 ANTIBIOTICS AT PRICILA.: RECEIVED : 09/06/22 17:06 SITE: PIPER NODULE CORE R E S U L T S AFB SMEAR FINAL 09/07/22 13:05 ACID FAST SMEAR - NEGATIVE. AFB CULTURE/, [place] FINAL 10/25/22 14:36 NO MYCOBACTERIA ISOLATED.[facility] CenterComment on above: Performed By: #### AFBC #### [facility] [address] [facility] [place], [place] [address]Bronchoscopyon 62-72-2019Gwftk, Jorge Gamboa MD - 09/11/2022 Patient Name: Alona Patino Procedure Date: 09/06/2022 11:36 AM Date of : 1970 Room: Bronchoscopy Room 1 Attending MD: Jorge Barron MD, [id number] Procedure: Bronchoscopy Indications: Left upper lobe nodule Providers: Jorge Barron MD (Doctor), Michelle Borden RN (Nurse), Corinne Franco, Polymer Chemist (Polymer Chemist), Steven Mariscal MD (Fellow) Referring MD: Arleth [...] by the physician, the nurse and the sewer head in the procedure room at 11:36 AM. [...] no secretions. Electromagnetic navigation bronchoscopy utilizing the Terabit Radios system with iLogic upgrade was performed. The [...] visible endoscopically. The samplin (more content not included)...[facility] Work Phone: bronchoscopyPATIENTNAME Patient Name: Alona Patino EXAMDATE Procedure Date: 09/06/2022 11:36 AM PATIENTID PATIENTACCOUNTNUM PATIENTDOB Date of : 1970 PATIENTROOM Room: Bronchoscopy Room 1 PROVDR Attending MD: Jorge Barron MD, [id number] ENDOPROCEDURENAME Procedure: Bronchoscopy INDICATION Indications: Left upper lobe nodule PRIMARYPROVIDER Providers: Jorge Barron MD (Doctor), Michelle Borden RN (Nurse), Corinne Franco, Polymer Chemist (Polymer Chemist), Steven Mariscal MD (Fellow) EDREFPROVIDER Referring MD: [...] by the physician, the nurse and the sewer head in the procedure room at 11:36 AM. [...] no secretions. Electromagnetic navigation bronchoscopy utilizing the Terabit Radios system with iLogic upgrade was performed. The [...] guided by fluoroscopy. Tr (more content not included)...[facility] CenterRadiology Study observation (narrative)[facility] Work Phone: bronchoscopyOrdered By: Jorge Barron on 09-06-2022 [facility] Work Phone: FUNGAL CULTURE/SM, MISCon 74-84-6601ZBLUCJ CULTURE/SM, MISCPATIENT: ALONA PATINO LOCATION: [facility] BILL#: [id number] : [birth year] AGE: SEX: M ORDERED BY: JORGE BARRON SOURCE: BIOPSY COLLECTED: 09/06/22 17:00 ANTIBIOTICS AT PRICILA.: RECEIVED : 09/06/22 17:05 SITE: PIPER NODULE CORE R E S U L T S FUNGAL SMEAR FINAL 09/07/22 10:54 FLUORESCENT FUNGAL STAIN: NEGATIVE FUNGAL CULTURE/SM, MISC FINAL 09/25/22 11:16 NO FUNGI ISOLATED.[facility] CenterComment on above:Performed By: #### FUNCS #### [facility] [address] [place], [place] [address]RMYKSTHMPLKCG CULT./SM.BACT.on 94-92-6901XWXMXMVNXBDMA CULT./SM.BACT.PATIENT: ALONA PATINO LOCATION: [facility]#: [id number] : [birth year] AGE: SEX: M ORDERED BY: JORGE BARRON SOURCE: BIOPSY COLLECTED: 09/06/22 17:21 ANTIBIOTICS AT PRICILA.: RECEIVED : 09/06/22 17:21 SITE: PIPER NODULE CORE R E S U L T S GRAM STAIN FINAL 09/06/22 18:21 1+ GRANULOCYTES. NO ORGANISMS SEEN. MISCELLANEOUS CULT./SM.BACT. FINAL 09/08/22 08:50 NO GROWTH AEROBICALLY OR ANAEROBICALLY.[facility] Medical CenterComment on above:Performed By: #### MISCC #### [facility] [address] [place], [place] [address]Zl Panel Informationon 09-06-2022 [email or web address]}[facility] Work Phone: [phone]-[facility] Work Phone: th CT CHEST without FOR HEATHER BRONC PLANNINGon 09-28-7800KL CT CHEST without FOR HEATHER BRONC PLANNINGMRN: [id number] Patient Name: ALONA PATINO STUDY: TH CT CHEST WITHOUT FOR HEATHER BRONC PLANNING; 09/06/2022 10:35 am INDICATION: Lung Nodule R91.1: Lung nodule. COMPARISON: None. ACCESSION NUMBER(S): [id number] ORDERING CLINICIAN: JORGE BARRON TECHNIQUE: Helical data acquisition of the chest [...] Mild coronary artery calcification. Electronically signed by: Kristi BELL [facility] Cytologyon 54-03-8908SML CytologyMRN: [id number] Patient Name ALONA PATINO Date of Procedure: 09/06/2022 Date Reported: 09/12/2022 Date Received: 09/06/2022 Date of / Sex 1970 (Age: 52) / M Race: UNKNOWN* Submitting Physician: JORGE BARRON MD Attending Physician: ARLETH ESPINO, Other External [...] refer to concurrent biopsy surgical pathology report ([id number]). Futures Trader: Dr. Slava Mooney consulted on the GMS [...] RAMANA Cardoso. Slide(s) initially screened by a Electrical Controls Technician at [place] [address] Electronically Signed Out By RUTHY BAEZ MD By the signature on this report, the individual or group listed as making the Final Interpretation/Diagnosis certifies that they have reviewed this case. Slide(s) initially screened by a Electrical Controls Technician at [facility] Diagnostic interpretation performed at [address] [place] [address] Rapid Evaluation Fine Needle Aspiration Immediate Read [...] - LEFT UPPER LOBE NODULE Pap stain Non-Special Agent Group Insurance, Pap stain Non-Special Agent Group Insurance, Diff-Quik stain Non-Special Agent Group Insurance, Diff-Quik stain Non-Special Agent Group Insurance, Diff-Quik stain Non-Special Agent Group Insurance, CELL BLOCK, H AND E, Initial, H GOMORI'S METHENAMINE SILVER, H ACID FAST BACILLI, ZIEHL-NEELSON, H RECUT H AND E, H PAS-FUNGAL, H RECUT H AND E B: BRONCHIAL TRIPLE NEEDLE BRUSH OF LEFT UPPER LOBE NODULE Pap stain Non-Special Agent Group Insurance, Diff-Quik stain Non-Special Agent Group Insurance, CELL BLOCK, H AND E, Initial C: FINE NEEDLE ASPIRATION 4R LYMPH NODE Pap stain Non-Special Agent Group Insurance, Diff-Quik stain Non-Special Agent Group Insurance, CELL BLOCK, H AND E, Initial D: FINE NEEDLE ASPIRATION 4L LYMPH NODE Pap stain Non-Special Agent Group Insurance, Diff-Quik stain Non-Special Agent Group Insurance, CELL BLOCK, H AND E, Initial E: FINE NEEDLE ASPIRATION 7 LYMPH NODE Pap stain Non-Special Agent Group Insurance, Diff-Quik stain Non-Special Agent Group Insurance, CELL BLOCK, H AND E, Initial F: FINE NEEDLE ASPIRATION 11L LYMPH NODE Pap stain Non-Special Agent Group Insurance, Diff-Quik stain Non-Special Agent Group Insurance, CELL BLOCK, H AND E, Initial Gross [...] HAZY NEEDLE RINSE IN CYTOLYT WITH PARTICLES. [facility] Department of Patholo (more content not included)...NormalSt. Lawrence Rehabilitation CenterComment on above:Performed By: #### C #### [facility] Cytology [address] [facility] [address]MHN Surgical Pathology Departmenton 97-04-4569EWW Surgical Pathology DepartmentName ALONA PATINO Pathologist: JUDIE WHITLEY MD Date of Procedure: 09/06/2022 Date Received: 09/06/2022 Date Reported 09/12/2022 Submitting Physician: JORGE BARRON MD Location: [facility] Copy To/Referring/Attending: ARLETH ESPINO, DO Other External # FINAL DIAGNOSIS LUNG, LEFT UPPER LOBE NODULE, TRANSBRONCHIAL BIOPSY: --FRAGMENTS OF ALVEOLATED LUNG PARENCHYMA WITH INTERSTITIAL FIBROSIS AND PATCHY CHRONIC INFLAMMATION ADMIXED WITH BLOOD AND FIBRIN. SEE NOTE. --SEE CONCURRENT CYTOLOGY SPECIMEN [id number]. Note: Deeper levels were reviewed. The findings are nonspecific. Clinical correlation with regards to adequacy of sampling is recommended. halie The gross and/or microscopic findings were reviewed in conjunction with pathology resident, Lucia Leal M.D., PhD. Electronically Signed Out By JUDIE WHITLEY MD/HALIE By the signature on this report, the individual or group listed as making the Final Interpretation/Diagnosis certifies that they have reviewed this case. Diagnostic interpretation performed at [facility] [address] [facility] [address] Clinical History: PIPER nodule Specimens Submitted As: A: PIPER NODULE TBBX Gross Description: Received in formalin, labeled with the patient?s name and hospital number and PIPER nodule TBBX , are multiple minute pink-white, soft tissue fragments aggregating to 0.8 x 0.3 x 0.3 cm. The specimen is submitted in toto in one cassette. DMB dmb/09/06/2022 [facility] Department of Pathology [address] [place], [place] [address]UxtkbbOBSt. Francis Regional Medical CenterComment on above:Performed By: #### [facility] #### [facility] Surgical Pathology Department [address] [facility] [address]Dpxksfp Visit (Pulmonary Medicine)on 71-73-9946Henjnkz Visit (Pulmonary Medicine)Diagnoses/Problems Lung nodule (793.11) (R91.1) COPD (chronic obstructive [...] pulmonary disease); ZACHARY = N; Record Start: Fluticasone-Salmeterol 250-50 MCG/ACT Inhalation Aerosol Powder Breath Activated; [...] visit given current COVID- 19 pandemic. Mr. Patino is a 52 year old male (former tkjqjy42 pack years ) here for initial evaluation of PIPER nodule. 1. PIPER nodule: PET avid - plan for bronchoscopy with biopsy - labwork prior to procedure I explained the procedure to the patient. We discussed that the bronchoscopy will be performed by amember of the Interventional Pulmonary Team, depending on scheduling and provider availability. We also discussed that the IP providers function as a team and not infrequently may have to fill in forone another if there are emergent issues that need attention at the same time. The patient / familyexpressed understanding and agreed to proceed. All questions were answered. Patient's visit was converted to a telephone visit given current COVID- 19 pandemic. Spoke with thepatient on the phone for 12 minutes. Thank you for visiting the Pulmonary clinic today! Jennifer Sykes IMPORTER OR EXPORTER History of Present Illness Patient's visit was converted to a telephone visit given current COVID- 19 pandemic. Mr. Patino is a 52 year old male (former uctpol22 pack years ) here for initial evaluation of PIPER nodule. HPI: He has a history of COPD. He uses incruse daily and advair twice daily - albuterol once a day.He has a cough - productive with clear/yellow [...] History: Mom - COPD/ CVA Father - [place] Brother - esophageal cancer/ liver cancer/ blood [...] current COVID- 19 pandemic. . Time Time Stamp_UH: Prep time on date of the patient encounter: 10 minutes. Time spent directly with patient/family/careg (more content not included)... [facility] CT SKULL BASE MID THIGHon 24-32-5321JSV CT [facility]/CT HISTORY: Solitary pulmonary nodule. COMPARISON: [...] Electronically authenticated by: NAIF TITUS Date: 2022-07-31 08:54NoProMedica Bay Park HospitalFUNGAL CULTUREon 26-07-8673Qbpfmq StainFinal reportNoProMedica Bay Park HospitalComment on above:Performed By: #### CXFUN #### [facility] [address] [place] [address] [address] Hamida Coreaformed By: #### HISTDID #### [facility] [address] [place] [address] Dr. Hamida Iveyult 1CMercy Health Willard HospitalComment on above:Result Comment: CHIQUITA/Calcofluor preparation: no fungus observed.Performed By: #### CXFUN #### [facility] [address] [place] [address] Dr. Hamida MendezPerformed By: #### HISTDID #### [facility] [address] [place] [address] Dr. Hamida MendezACID FAST SMEAR AND CXon 00-64-1192Ktcp Fast SmearNegativeNormal [facility] on above:Performed By: #### CVDTBH #### [facility] [address] [place] [address] Dr. Hamida Altman Specimen ProcessingConUniversity Hospitals Cleveland Medical Center Comment on above:Performed By: #### CVDTBH #### [facility] [address] [place] [address] Dr. Hamida GarciaLTANUPAM OTHERon 04-09-3044FPKJQTR OTHERCulture Observations: NO GROWTH AT 48 HOURS.NormalThe TrihealthComment on above:Performed By: #### CVDTBH #### [facility] [address] [place] [address] Dr. Hamida MendezCYTOLOGYon 75-04-5676DHGG TO REF LAB07/10/2022[facility] CenterCombronson [facility]ist hospital on above:Performed By: #### CVDTBH #### [facility] [address] [place] [address] Dr. Hamida MendezGRAM STAINon 22-63-3242POXRGDBRAD [facility] HospitalComment on above:Performed By: #### CCPAB #### [facility] [address] [place] [address] Dr. Hamida TorresPHTHEROIDSFirelands Regional Medical CenterComment on above:Performed By: #### CCPAB #### [facility] [address] [place] [address] [address] Hamida VerasTHELIALSFirelands Regional Medical CenterComment on above:Performed By: #### CCPAB #### [facility] [address] [place] [address] [address] Hamida MendezFUNGAL ELEMENTSFirelands Regional Medical CenterCombronson methodist hospital on above: Performed By: #### CCPAB #### [facility] [address] [place] [address] [address] Hamida Knapp NEG BACILLIFirelands Regional Medical CenterComment on above: Performed By: #### CCPAB #### [facility] [address] [place] [address] [address] Hamida Knapp NEG DIPPLOCOCCIFirelands Regional Medical CenterCombronson methodist hospital on above: Performed By: #### CCPAB #### [facility] [address] [place] [address] [address] Hamida Knapp POS [facility] HospitalCom[facility] on above: Performed By: #### CCPAB #### [facility] [address] [place] [address] [address] Hamida Knapp POSITIVE COCCThe Surgical Hospital at SouthwoodsCombronson methodist hospital on above: Performed By: #### CCPAB #### [facility] [address] [place] [address] [address] Hamida Knapp STAIN SOURCELt Upper Lobe LavageFirelands Regional Medical Center Comment on above:Performed By: #### CCPAB #### [facility] [address] [place] [address] [address] Hamida Kincaid_DIPTHOhioHealth Hardin Memorial Hospital HospitalComment on above:Performed By: #### CCPAB #### [facility] [address] [place] [address] [address] Hamida MendezWBCNONE SEENFirelands Regional Medical CenterCombronson methodist hospital on above:Performed By: #### CCPAB #### [facility] [address] [place] [address] [address] Hamida MendezXR CHEST 1 Von 18-13-8255RO CHEST 1 VEXAMINATION: XR CHEST 1 V, 07/10/2022 8:07 AM [...] Electronically authenticated by: TEGAN PAREDES Date: 2022-07-10 08:41NoProMedica Bay Park HospitalCovid-19 PCR ([facility])on 17-41-8626SRFO-CoV-2 (COVID-19) RNA DORA+probe Ql (Unsp spec)Not detectedNormalNOT DETECTEDThe [facility] Comment on above:Result Comment: This test is not yet approved or cleared by the [place] FDA. When there are no FDA-approved or cleared tests available, and other criteria are met, FDA can make tests available under an emergency access mechanism called an Emergency Use Authorization (EUA). The EUA for this test is supported by the Microfilmer of Health and Human Service's (HHS's) declaration that circumstances exist to justify the emergency use of in vitro diagnostics for the detection and/or diagnosis of the virus that causes COVID- 19. This EUA will remain in effect (meaning [...] of clinical signs and symptoms consistent with SARS-CoV-2.Performed By: #### CVDTBH #### [facility] [address] [place] [address] Dr. Hamida Albarran IGG/IGM AB BY IFAon 65-63-1124Iubbbkvfauh Ab, IgG EIA 0.6 EIA UnitsNoProMedica Bay Park HospitalComment on above:Result Comment: Negative <1.0 Indeterminate 1.0-1.4 Positive >1.4Performed By: #### CVDTBH #### [facility] [address] [place] [address] Dr. Hamida MendezCoccidiodes Ab, IgM, EIA0.2 EIA [facility] Comment on above:Result Comment: Negative <1.0 Indeterminate 1.0-1.4 Positive >1.4Performed By: #### CVDTBH #### [facility] [address] [place], [place] [address] Dr. Hamida MendezHISTOPLASMA GALACTOMANNAN AG URINEon 07-28-3720Yzymfqoubia Gal'jp Ag<0.5Normal<0.5 ng/mLWooster Community HospitalComment on above:Performed By: #### CCPAB #### [facility] [address] [place] [address] Dr. Hamida MendezFUNGAL AB QUANTITAIVE DOUBLE IMMUNODIFFUon 31-08-3837Fybpxykydhs flavusNegativeNormalNeg:<1:1[facility] HospitalComment on above:Performed By: #### CCPAB #### [facility] [address] [place] [address] Dr. Hamida Rollinsergillus fumigatusNegativeNormalNeg:<1:1[facility] Comment on above:Performed By: #### CCPAB #### [facility] [address] [place] [address] Dr. Hamida Rollinsergillus nigerNegativeNormalNeg:<1:1[facility] Comment on above:Performed By: #### CCPAB #### [facility] [address] [place] [address] Dr. Hamida MendezBlastomycesNegativeNormalNeg:<1:1[facility] HospitalComment on above:Performed By: #### CCPAB #### [facility] [address] [place] [address] Dr. Hamida MendezHISTOPLASMA CAP AB QUANT DIDon 30-32-9664Xfgxxlosrzi Mycelial CF Ab.NegativeNormalNeg:<1:2[facility] HospitalComment on above:Performed By: #### HISTDID #### [facility] [address] [place] [address] Dr. Hamida MendezHistopcolt Yeast CF AbNegativeNormalNeg:<1:2The TrihealthComment on above:Performed By: #### HISTDID #### [facility] [address] [place] [address] Dr. Hamida Carpio TB GOLD PLUSon 91-82-5355QclmwhQENKH CriteriaComment NormalWooster Community HospitalComment on above:Result Comment: QuantiFERON-TB Gold Plus is a qualitative indirect test for M tuberculosis infection (including disease) and is intended for use in conjunction with risk assessment, radiography, and other medical and diagnostic evaluations. The QuantiFERON-TB Gold Plus result is determined by subtracting the Nil value from either TB antigen (Ag) value. The Mitogen tube serves as a control for the test.Performed By: #### QNTTB #### [facility] [address] [place] [address] Dr. Hamida Carpio IncubationIncubation performed.NormalWooster Community HospitalCombronson methodist hospital on above:Performed By: #### QNTTB #### [facility] [address] [place] [address] Dr. Hamida Carpio Mitogen Value>10.00NormalThe TrihealthComment on above:Performed By: #### QNTTB #### [facility] [address] [place] [address] Dr. Hamida Carpio Nil Value0.03 IU/mLNormalWooster Community HospitalComment on above:Performed By: #### QNTTB #### [facility] [address] [place] [address] Dr. Hamida Carpio TB1 Ag Value0.05 IU/mLNormalWooster Community Hospital Comment on above:Performed By: #### QNTTB #### [facility] [address] [place] [address] Dr. Hamida Carpio TB2 Ag Value0.04 IU/mLNormalWooster Community Hospital Comment on above:Performed By: #### QNTTB #### [facility] [address] [place] [address] Dr. Hamida MendezQuantiFERON-TB Gold PlusNegativeNormalNegativeWooster Community HospitalComment on above:Result Comment: No response to M tuberculosis antigens detected. Infection with M tuberculosis is unlikely, but high risk individuals should be considered for additional testing (ATS/IDSA/CDC Clinical Practice Guidelines, 2017). The reference range is an Antigen minus Nil result of <0.35 IU/mL. Chemiluminescence immunoassay methodologyPerformed By: #### QNTTB #### [facility] [address] [place] [address] Dr. Hamida MendezANGIOTENSION-CONVERTING ENZYME (ANTOINETTE)on 13-74-7092NTW35 U/LNormal 14-82[facility] HospitalComment on above:Performed By: #### CCPAB #### [facility] [address] [place] [address] Dr. Hamida Zamora NEUTROPHIL CYTOPLASMIC AB (ANCA) PRon 69-36-7805Jsua-MPO Antibodies<0.5Adcvnb1.0-0.9[facility] HospitalComment on above:Result Comment: Performed at: BNPerformed By: #### ANCAP #### [facility] [address] [place] [address] Dr. Hamida Zamora-PR3 Antibodies<0.8Nolzvf5.0-0.9The TrihealthComment on above:Result Comment: Performed at: BNPerformed By: #### ANCAP #### [facility] [address] [place] [address] Dr. Hamida MendezAtypical pANCA<1:20NormalNeg:<1:20The TrihealthComment on above:Result Comment: The atypical pANCA pattern has been observed in a significant percentage of patients with ulcerative colitis, primary sclerosing cholangitis and autoimmune hepatitis. Performed at: CBPerformed By: #### ANCAP #### [facility] [address] [place] [address] Dr. Hamida MendezCytoplasmic (C-ANCA)<1:20NormalNeg:<1:20ThTriHealth [facility] Comment on above:Result Comment: Performed at: CBPerformed By: #### ANCAP #### [facility] [address] [place] [address] Dr. Hamida Love (P-ANCA)<1:20NormalNeg:<1:20ThTriHealth [facility] Hospital Comment on above:Result Comment: The presence of positive fluorescence exhibiting P-ANCA or C-ANCA patterns alone is not specific for the diagnosis of John's Granulomatosis (WG) or microscopic polyangiitis. Decisions about treatment should not be based solely on ANCA IFA results. The International ANCA Group Consensus recommends follow up testing of positive sera with both MO-3 and MPO-ANCA enzyme immunoassays. As many as 5% serum samples are positive only by EIA. Ref. AM J Clin Pathol 1999;111:507-513. Performed at: CBPerformed By: #### ANCAP #### [facility] [address] [place] [address] Dr. Hamida MendezANTISCLERODERMA ABon 72-89-7193Scuaobdztibidam-70 Antibodies<0.2 Normal0.0-0.9The TrihealthComment on above:Performed By: #### CCPAB #### [facility] [address] [place] [address] Dr. Hamida MendezCYCLIC CITRULLINATED PEPTIDE AB (CCP)on 25-17-3655MTV Antibodies IgG/IgA5 unitsNormal0-19The TrihealthComment on above:Result Comment: Negative <20 Weak positive 20 - 39 Moderate positive 40 - 59 Strong positive >59Performed By: #### CCPAB #### [facility] [address] [place] [address] Dr. Hamida MendezRHEUMATOID FACTORon 53-33-7496BZ Latex Turbid.<10.0Normal<14.0The TrihealthComment on above:Performed By: #### CCPAB #### [facility] [address] [place] [address] Dr. Hamida MendezSED RATE WESTERGRENon 22-74-9969JRJ RATE47 mm/hrCritically high <=20The [facility] Hospitalment on above:Performed By: #### CVDTBH #### [facility] [address] [place] [address] Dr. Hamida Riddle LUNG CANCER SCREENINGon 52-69-4651WP LUNG CANCER SCREENING EXAMINATION: CT LUNG CANCER [...] Electronically authenticated by: DOT JOSEPH Date: 2022-06-21 15:09NormKettering Health Main CampusHEMOGLOBINon 82-97-4062Osafvotklb (Bld) [Mass/Vol]14.4 g/dL Eznybk07.0-18.0The Estephanie HospitalComment on above:Performed By: #### CVDTBH #### [facility] [address] [place] [address] Dr. Hamida Escamilla AUTO DIFFon 08-01-3180KAOB #0.0 103/ulNormal0.0-0.1The TrihealthComment on above:Performed By: #### HISTDID #### [facility] [address] [place] [address] Dr. Hamida MendezBasophils/100 WBC (Bld)0.0 %Critically low0.2-2.0The TrihealthComment on above:Performed By: #### HISTDID #### [facility] [address] [place] [address] Dr. Hamida Snow #0.4 103/ulNormal0.0-0.7The TrihealthComment on above: Performed By: #### HISTDID #### [facility] [address] [place] [address] Dr. Hamida Godinezosinophils/100 WBC (Bld)7.2 %Critically high0.9-7.0The [facility]healthCombr[facility]ist hospital on above:Performed By: #### HISTDID #### [facility] [address] [place] [address] Dr. Hamida Godinezrythrocyte distribution width (RBC) [Ratio]13.1 %Aznghr31.0-15.0 The [facility]healthCombronson methodist hospital on above:Performed By: #### HISTDID #### [facility] [address] [place] [address] Dr. Hamida MendezHematocrit (Bld) [Volume fraction]46.9 %Umnqrm67.0-54.0The TrihealthComment on above:Performed By: #### HISTDID #### [facility] [address] [place] [address] Dr. Hamida MendezHemoglobin (Bld) [Mass/Vol]15.4 g/fECgsgtn96.0-18.0The TrihealthComment on above:Performed By: #### HISTDID #### [facility] [address] [address] [address] Hamida Romero #0.01 10e3/ulNormal0.00-0.03The [facility] on above:Performed By: #### HISTDID #### [facility] [address] [address] [address] Hamida Romero %0.2 %Normal0.0-0.5The TrihealthComment on above: Performed By: #### HISTDID #### [facility] [address] [address] [address] Hamida Hudson #1.5 103/ulNormal1.2-3.8The TrihealthComment on above:Performed By: #### HISTDID #### [facility] [address] [place] [address] Dr. Hamida Kirbyhocytes/100 WBC (Bld)27.5 %Nzeokk25.5-60.0The TrihealthComment on above:Performed By: #### HISTDID #### [facility] [address] [place] [address] Dr. Hamida BatesUAL DIFF REQNONormalThe TrihealthCombronson methodist hospital on above: Performed By: #### HISTDID #### [facility] [address] [place] [address] Dr. Hamida Marino (RBC) [Entitic mass]30.9 hkFjdzcg27.9-34.0The [facility] on above:Performed By: #### HISTDID #### [facility] [address] [place] [address] Dr. Hamida Marino (RBC) [Mass/Vol]32.8 g/rWKdcanh75.9-35.2The [facility] on above:Performed By: #### HISTDID #### [facility] [address] [place] [address] Dr. Hamida Marino (RBC) [Entitic vol]94.2 fLCritically high80.0-94.0The Estephanie HospitalComment on above:Performed By: #### HISTDID #### [facility] [address] [place] [address] Dr. Hamida Ware #0.4 103/ulNormal0.3-0.8The [facility] HospitalComment on above:Performed By: #### HISTDID #### [facility] [address] [place] [address] Dr. Hamida Milnerocytes/100 WBC (Bld)7.2 %Normal1.7-12.0[facility] Comment on above:Performed By: #### HISTDID #### [facility] [address] [place] [address] Dr. Hamida Talavera #3.2 103/ulNormal1.4-6.5The TrihealthComment on above:Performed By: #### HISTDID #### [facility] [address] [place] [address] Dr. Hamida Toussaintutrophils/100 WBC (Bld)57.9 %Gmvksv30.0-75.0The TrihealthComment on above:Performed By: #### HISTDID #### [facility] [address] [place] [address] Dr. Hamida Gomes mean volume (Bld) [Entitic vol]8.8 fLCritically low 9.5-13.5The TrihealthComment on above:Performed By: #### HISTDID #### [facility] [address] [place] [address] Dr. Hamida MendezPLT261 103/hkEmuvyu166-107Hkj TrihealthComment on above: Performed By: #### HISTDID #### [facility] [address] [place] [address] Dr. Hamida MendezRBC4.98 106/ulNormal4.70-6.10The TrihealthComment on above:Performed By: #### HISTDID #### [facility] [address] [place] [address] Dr. Hamida MendezWBC5.6 103/ulNormal4.0-11.0The [facility]healthCom[facility] hospital on above: Performed By: #### HISTDID #### [facility] [address] [place] [address] Dr. Hamida Albert T3on 06-59-1053EFKO T32.19 pg/mlLNormal2.18-3.98The [facility]healthCom[facility] hospital on above:Performed By: #### CVDTBH #### [facility] [address] [place] [address] Dr. Hamida Albert T4on 56-86-7044Ksac T4 [Mass/Vol]1.13 ng/dLNormal0.76-1.46 The [facility]healthCom[facility] hospital on above:Performed By: #### CCPAB #### [facility] [address] [place] [address] Dr. Hamida MendezGLYCOHEMOGLOBIN A1Con 30-36-6577WVZ RECOMMENDATIONSEE BELOWProvidence HospitalCombronson methodist hospital on above:Result Comment: ADA RECOMMENDED LIMIT 4.0 - 6.0 ADA THERAPEUTIC TARGET < 7.0 ACTION SUGGESTED > 7.0Performed By: #### CCPAB #### [facility] [address] [place] [address] Dr. Hamida MendezGlucose [Mass/Vol]105 mg/dLNoMiddletown Hospital on above:Performed By: #### CCPAB #### [facility] [address] [place] [address] Dr. Hamida MendezHbA1c (Bld) [Mass fraction]5.3 %Normal4.5-6.2[facility] on above:Performed By: #### CCPAB #### [facility] [address] [place] [address] Dr. Hamida MendezLIPID PROFILEon 18-30-5001MSQP-HDL RATIO NORMSEE [facility] on above:Result Comment: 3.3 - 4.4 LOW RISK 4.4 - 7.1 AVERAGE RISK 7.1 - 11.0 MODERATE RISK >11.0 HIGH RISKPerformed By: #### BMP, TSH, LIVER, LIPID, FT3 #### [facility] [address] [address] [address] Hamida MendezCholesterol [Mass/Vol]211 mg/dLCritically high<=200The [facility] on above:Performed By: #### BMP, TSH, LIVER, LIPID, FT3 #### [facility] [address] [address] [address] Hamida MendezCholesterol in HDL [Mass/Vol]69 mg/dLCritically dffe17-46Gix [facility] on above:Performed By: #### BMP, TSH, LIVER, LIPID, FT3 #### [facility] [address] [address] [address] Hamida Manningesterol in LDL [Mass/Vol]126.2 mg/dLOhio State East Hospital on above:Performed By: #### BMP, TSH, LIVER, LIPID, FT3 #### [facility] [address] [place] [address] Dr. Hamida Manningesterrasta.total/Cholesterol in HDL [Mass ratio]3.1 {ratio} NormalKettering Health Troy on above:Performed By: #### BMP, TSH, LIVER, LIPID, FT3 #### [facility] [address] [place] [address] Dr. Hamida Vizcarra NORMAL> or = 60 mg/dl - LOW CARDIOVASCULAR RISK <40 mg/dl - HIGH CARDIOVASCULAR RISKOhio State East Hospital on above:Performed By: #### BMP, TSH, LIVER, LIPID, FT3 #### [facility] [address] [place] [address] Dr. Hamida MendezLDL CALC NORMALSEE BELOWFirelands Regional Medical CenterCombronson methodist hospital on above:Result Comment: <100 mg/dl OPTIMAL 100 - 129 mg/dl NEAR OR ABOVE OPTIMAL 130 - 159 mg/dl BORDERLINE HIGH 160 - 189 mg/dl HIGH >190 mg/dl VERY HIGH Performed By: #### BMP, TSH, LIVER, LIPID, FT3 #### [facility] [address] [place] [address] Dr. Hamida MendezTriglyceride [Mass/Vol]79 mg/dLNormal<=150The [facility] Comment on above:Performed By: #### BMP, TSH, LIVER, LIPID, FT3 #### [facility] [address] [address] [address] Hamida PaulLDL CALC15.8 mg/dLNormalThe TrihealthComment on above: Performed By: #### BMP, TSH, LIVER, LIPID, FT3 #### [facility] [address] [address] [address] Hamida Guerrero PROFILEon 65-30-4523Mftiyit [Mass/Vol]3.4 g/dLNormal3.4-5.0 The TrihealthComment on above:Performed By: #### BMP, TSH, LIVER, LIPID, FT3 #### [facility] [address] [address] [address] Hamida MendezAlbumin/Globulin [Mass ratio]0.8 {ratio}NormalThe TrihealthComment on above:Performed By: #### BMP, TSH, LIVER, LIPID, FT3 #### [facility] [address] [address] [address] Hamida Rodriges [Catalytic activity/Vol]83 U/WZttwsa86-940Zmr TrihealthComment on above:Performed By: #### BMP, TSH, LIVER, LIPID, FT3 #### [facility] [address] [address] [address] Hamida Back [Catalytic activity/Vol]14 U/LCritically sbf93-88Ofe [facility] Hospitalment on above:Performed By: #### BMP, TSH, LIVER, LIPID, FT3 #### [facility] [address] [address] [address] Hamida Denney [Catalytic activity/Vol]12 U/LCritically czy07-91Xds [facility] Hospitalment on above:Performed By: #### BMP, TSH, LIVER, LIPID, FT3 #### [facility] [address] [address] [address] Hamida Rosen, CONJUGATED0.1 mg/dLNormal0.0-0.2[facility] Comment on above:Performed By: #### BMP, TSH, LIVER, LIPID, FT3 #### [facility] [address] [place] [address] Dr. Hamida MendezBilirubin [Mass/Vol]0.4 mg/dLNormal0.2-1.0[facility] Comment on above:Performed By: #### BMP, TSH, LIVER, LIPID, FT3 #### [facility] [address] [place] [address] Dr. Hamida MendezGlobulin (S) [Mass/Vol]4.2 g/dLNormalThe TrihealthComment on above:Performed By: #### BMP, TSH, LIVER, LIPID, FT3 #### [facility] [address] [place] [address] Dr. Hamida MendezProtein [Mass/Vol]7.6 g/dLNormal6.4-8.2[facility] Comment on above:Performed By: #### BMP, TSH, LIVER, LIPID, FT3 #### [facility] [address] [place] [address] Dr. Hamida MendezPROF CHEM 8 (BAS METB)on 35-16-1251Mooix gap [Moles/Vol]4.7 mmol/LNormalWooster Community HospitalComment on above:Performed By: #### BMP, TSH, LIVER, LIPID, FT3 #### [facility] [address] [place] [address] Dr. Hamida MendezCalcium [Mass/Vol]9.1 mg/dLNormal8.5-10.1[facility] Comment on above:Performed By: #### BMP, TSH, LIVER, LIPID, FT3 #### [facility] [address] [place] [address] Dr. Hamida MendezChloride [Moles/Vol]101 mmol/FYllqsi69-384PieWooster Community Hospital Comment on above:Performed By: #### BMP, TSH, LIVER, LIPID, FT3 #### [facility] [address] [place] [address] Dr. Hamida MendezCO2 [Moles/Vol]33.4 mmol/LCritically high21.0-32.0The TrihealthComment on above:Performed By: #### BMP, TSH, LIVER, LIPID, FT3 #### [facility] [address] [address] [address] Hamida MendezCreatinine [Mass/Vol]0.87 mg/dLNormal0.70-1.30The TrihealthComment on above:Performed By: #### BMP, TSH, LIVER, LIPID, FT3 #### [facility] [address] [address] [address] Hamida GodinezGFR-AF PRYDEINIG>60Normal>=60The TrihealthComment on above:Performed By: #### BMP, TSH, LIVER, LIPID, FT3 #### [facility] [address] [place] [address] Dr. Hamida GodinezGFR-NON AF PRYDEINIG>60Normal>=60The TrihealthComment on above:Performed By: #### BMP, TSH, LIVER, LIPID, FT3 #### [facility] [address] [place] [address] Dr. Hamida MendezGlucose [Mass/Vol]101 mg/lXByhnqv38-163LhcWooster Community Hospital Comment on above:Performed By: #### BMP, TSH, LIVER, LIPID, FT3 #### [facility] [address] [address] [address] Hamida MendezPotassium [Moles/Vol]4.1 mmol/LNormal3.5-5.1[facility] Comment on above:Performed By: #### BMP, TSH, LIVER, LIPID, FT3 #### [facility] [address] [address] [address] Hamida MendezSodium [Moles/Vol]135 mmol/LCritically vxt761-231Yff TrihealthComment on above:Performed By: #### BMP, TSH, LIVER, LIPID, FT3 #### [facility] [address] [address] [address] Hamida MendezUrea nitrogen [Mass/Vol]9.0 mg/dLNormal7.0-18.0The TrihealthComment on above:Performed By: #### BMP, TSH, LIVER, LIPID, FT3 #### [facility] [address] [place] [address] Dr. Hamida Moore nitrogen/Creatinine [Mass ratio]10.3 mg/mgFirelands Regional Medical CenterComment on above:Performed By: #### BMP, TSH, LIVER, LIPID, FT3 #### [facility] [address] [place] [address] Dr. Hamida BurroughsHonelson 80-27-4455GVN1.960 uIU/mLNormal0.358-3.740[facility] HospitalComment on above:Performed By: #### BMP, TSH, LIVER, LIPID, FT3 #### [facility] [address] [place] [address] Dr. Hamida MendezVITAMIN D 25 OHon 39-60-9059FID D 25-OH25.6 ng/mLNormalWooster Community HospitalComment on above:Performed By: #### CCPAB #### [facility] [address] [place] [address] Dr. Hamida Pool RANGES[place] BELOWFirelands Regional Medical CenterComment on above: Result Comment: <20 ng/mL Vit D deficient 20 - <30 ng/mL Vit D insufficient 30 - 100 ng/mL Vit D sufficient >100 ng/mL Potential ToxicityPerformed By: #### CCPAB #### [facility] [address] [place] [address] Dr. Hamida MendezPhysician Referralon 54-89-8540Bwgrgcrcw Referral [id number]#1.00CD:127NormalCounts Include 234 Beds At [facility]er [facility] CenterA1C with Estimated Average Gluon 98-36-7869Xgdvibb [Mass/Vol]111 mg/dL NormalSelect Medical Specialty Hospital - Southeast OhioComment on above:Order Comment: Reason for Exam Hypothyroidism, unspecified type Reason for Exam Hyperlipidemia, unspecifiedResult Comment: PERFORMED BY: [facility] [address] [id number] PATHOLOGIST WEB COORDINATOR CHANDRAKANT ZARCO M.D.Performed By: #### CMP, LIPID, THYROID SC, SCAN CBC #### [facility] [address] [id number] VBCDtO4d (Bld) [Mass fraction]5.5 %Normal4.3-5.6FProtestant HospitalComment on above:Order Comment: Reason for Exam Hypothyroidism, unspecified type Reason for Exam Hyperlipidemia, unspecifiedResult Comment: Increased risk for diabetes: 5.7 - 6.4 diabetes: >6.4 glycemic control for adults with diabetes: <7.0Performed By: #### CMP, LIPID, THYROID SC, SCAN CBC #### [facility] [address] [id number] USACOVID-19 Antigenon 23-94-7621PHOIS-19 AntigenHealthcare Worker?: N Baudilio Reference Baudilio Reference Negative [...] its performance Baudilio Disclaimer characteristic determined by ZIPDIGS and Baudilio Disclaimer validated at [facility] [...] is terminated or revoked sooner. PERFORMED BY: [facility] [address] [facility] [place] [address] PATHOLOGIST WEB COORDINATOR CHANDRAKANT ZARCO M.D.[facility] Health SystemComment on above: Performed By: #### COVID-19 MANGO ASTUDILLOEG #### [facility] [address] [place] [address] USASofia Ag Negativeon 91-61-2659Kegza Ag NegativeNegative NormalNegativeSelect Medical Specialty Hospital - Southeast OhioComment on above:Result Comment: This is a duplicate Baudilio SARS Antigen (LYDIA) result to be used for statistical tracking purpose only. PERFORMED BY: [place] [address] PATHOLOGIST WEB COORDINATOR CHANDRAKANT ZARCO M.D.Performed By: #### COVID-19 BAUDILIO, SOFIANEG #### [place] [address] USAComplete Blood Count Auto Diffon 91-44-3021Gmrwhcbff (Bld) [#/Vol]0.0 10*3/uLNormal0.0-0.2FProtestant HospitalComment on above:Order Comment: Reason for Exam Tobacco use;Dyslipidemia;Encounter for screening for malignaResult Comment: PERFORMED BY: [place] [address] PATHOLOGIST WEB COORDINATOR CHANDRAKANT ZARCO M.D.Performed By: #### LIPID, TSH3 wRFLX, CMP, CBC #### [place] [address] USABasophils/100 WBC (Bld)0.5 %Normal.[facility] Southeast OhioComment on above:Order Comment: Reason for Exam Tobacco use;Dyslipidemia;Encounter for screening for malignaPerformed By: #### LIPID, TSH3 wRFLX, CMP, CBC #### [facility] [address] [place] [address] USAEosinophils (Bld) [#/Vol]0.4 10*3/uLNormal0.0-0.45 [facility] OhioComment on above:Order Comment: Reason for Exam Tobacco use;Dyslipidemia;Encounter for screening for malignaPerformed By: #### LIPID, TSH3 wRFLX, CMP, CBC #### [facility] [address] [place] [address] USAEosinophils/100 WBC (Bld)5.0 %Normal.[facility] OhioComment on above:Order Comment: Reason for Exam Tobacco use;Dyslipidemia;Encounter for screening for malignaPerformed By: #### LIPID, TSH3 wRFLX, CMP, CBC #### [facility] [address] [place] [address] USAErythrocyte distribution width (RBC) [Ratio]13.7 %Normal 12.0-14.8[facility] Southeast OhioComment on above:Order Comment: Reason for Exam Tobacco use;Dyslipidemia;Encounter for screening for malignaPerformed By: #### LIPID, TSH3 wRFLX, CMP, CBC #### [place] [address] USAHematocrit (Bld) [Volume fraction]43.7 %Uayxqq95.8-50.0 [facility] OhioComment on above:Order Comment: Reason for Exam Tobacco use;Dyslipidemia;Encounter for screening for malignaPerformed By: #### LIPID, TSH3 wRFLX, CMP, CBC #### [place] [address] USAHemoglobin (Bld) [Mass/Vol]15.0 g/nPEdakux21.0-17.0 [facility] OhioComment on above:Order Comment: Reason for Exam Tobacco use;Dyslipidemia;Encounter for screening for malignaPerformed By: #### LIPID, TSH3 wRFLX, CMP, CBC #### [place] [address] USALymphocytes (Bld) [#/Vol]2.0 10*3/uLNormal1.00-4.8 [facility] OhioComment on above:Order Comment: Reason for Exam Tobacco use;Dyslipidemia;Encounter for screening for malignaPerformed By: #### LIPID, TSH3 wRFLX, CMP, CBC #### [address] [id number] USALymphocytes/100 WBC (Bld)27.1 %Normal.[facility] - Southeast OhioComment on above:Order Comment: Reason for Exam Tobacco use;Dyslipidemia;Encounter for screening for malignaPerformed By: #### LIPID, TSH3 wRFLX, CMP, CBC #### [place] [address] USAMCH (RBC) [Entitic mass]32.5 daHpsazp83.5-35.2FProtestant HospitalComment on above:Order Comment: Reason for Exam Tobacco use;Dyslipidemia;Encounter for screening for malignaPerformed By: #### LIPID, TSH3 wRFLX, CMP, CBC #### [facility] [address] (RBC) [Entitic vol]94.7 vCXuesdh47.5-101[facility] Southeast OhioComment on above:Order Comment: Reason for Exam Tobacco use;Dyslipidemia;Encounter for screening for malignaPerformed By: #### LIPID, TSH3 wRFLX, CMP, CBC #### [facility] [address] [place] [address] USAMean Corpuscular HGB Conc34.3 g/aUOjqhks51.5-35.6FProtestant HospitalComment on above:Order Comment: Reason for Exam Tobacco use;Dyslipidemia;Encounter for screening for malignaPerformed By: #### LIPID, TSH3 wRFLX, CMP, CBC #### [facility] [address] [place] [address] USAMonocytes (Bld) [#/Vol]0.4 10*3/uLNormal0.0-0.8[facility] OhioComment on above:Order Comment: Reason for Exam Tobacco use;Dyslipidemia;Encounter for screening for malignaPerformed By: #### LIPID, TSH3 wRFLX, CMP, CBC #### [facility] [address] [place] [address] USAMonocytes/100 WBC (Bld)5.9 %Normal.[facility] Southeast OhioComment on above:Order Comment: Reason for Exam Tobacco use;Dyslipidemia;Encounter for screening for malignaPerformed By: #### LIPID, TSH3 wRFLX, CMP, CBC #### [facility] [address] [place] [address] USANeutrophils (Bld) [#/Vol]4.6 10*3/uLNormal1.8-7.7FProtestant HospitalComment on above:Order Comment: Reason for Exam Tobacco use;Dyslipidemia;Encounter for screening for malignaPerformed By: #### LIPID, TSH3 wRFLX, CMP, CBC #### [facility] [address] [place] [address] USANeutrophils/100 WBC (Bld)61.5 %Normal.[facility] OhioComment on above:Order Comment: Reason for Exam Tobacco use;Dyslipidemia;Encounter for screening for malignaPerformed By: #### LIPID, TSH3 wRFLX, CMP, CBC #### [facility] [address] [place] [id number] USANucleated RBC/100 WBC (Bld) [Ratio]0.0 %Normal0-0.5 [facility] OhioComment on above:Order Comment: Reason for Exam Tobacco use;Dyslipidemia;Encounter for screening for malignaPerformed By: #### LIPID, TSH3 wRFLX, CMP, CBC #### [facility] [address] [place] [address] USAPlatelet mean volume (Bld) [Entitic vol]6.7 fLNormal 6.6-10.1FProtestant HospitalComment on above:Order Comment: Reason for Exam Tobacco use;Dyslipidemia;Encounter for screening for malignaPerformed By: #### LIPID, TSH3 wRFLX, CMP, CBC #### [facility] [address] [place] [address] USAPlatelets (Bld) [#/Vol]298 10*3/gSBxcjef510-677IkyeegpbhSelect Medical Specialty Hospital - Southeast OhioComment on above:Order Comment: Reason for Exam Tobacco use;Dyslipidemia;Encounter for screening for malignaPerformed By: #### LIPID, TSH3 wRFLX, CMP, CBC #### [facility] [address] [place] [address] USARBC (Bld) [#/Vol]4.61 10*6/uLNormal3.90-5.60[facility] OhioComment on above:Order Comment: Reason for Exam Tobacco use;Dyslipidemia;Encounter for screening for malignaPerformed By: #### LIPID, TSH3 wRFLX, CMP, CBC #### [facility] [address] [place] [address] USAWBC (Bld) [#/Vol]7.5 10*3/uLNormal4.5-11.0[facility] OhioComment on above:Order Comment: Reason for Exam Tobacco use;Dyslipidemia;Encounter for screening for malignaPerformed By: #### LIPID, TSH3 wRFLX, CMP, CBC #### [facility] [address] [place] [address] USAComprehensive Metabolic Panelon [id number] [Mass/Vol]3.6 g/dLNormal3.2-5.5FProtestant HospitalComment on above:Order Comment: Reason for Exam Tobacco use;Dyslipidemia;Encounter for screening for maligna Reason for Exam Dyslipidemia Reason for Exam Hypothyroidism, unspecified typePerformed By: #### LIPID, TSH3 wRFLX, CMP, CBC #### [facility] [address] [place] [address] USAAlbumin/Globulin [Mass ratio]1.1 {ratio}[facility] Hospitals Health SystemComment on above:Order Comment: Reason for Exam Tobacco use;Dyslipidemia;Encounter for screening for maligna Reason for Exam Dyslipidemia Reason for Exam Hypothyroidism, unspecified typePerformed By: #### LIPID, TSH3 wRFLX, CMP, CBC #### [facility] [address] [place] [address] USAALP [Catalytic activity/Vol]78 U/HAjblkv94-88AjrhkrwavSelect Medical Specialty Hospital - Southeast OhioComment on above:Order Comment: Reason for Exam Tobacco use;Dyslipidemia;Encounter for screening for maligna Reason for Exam Dyslipidemia Reason for Exam Hypothyroidism, unspecified typePerformed By: #### LIPID, TSH3 wRFLX, CMP, CBC #### [facility] [address] [place] [address] USAALT [Catalytic activity/Vol]11 U/XQloydu52-16WxeifzcexSelect Medical Specialty Hospital - Southeast OhioComment on above:Order Comment: Reason for Exam Tobacco use;Dyslipidemia;Encounter for screening for maligna Reason for Exam Dyslipidemia Reason for Exam Hypothyroidism, unspecified typePerformed By: #### LIPID, TSH3 wRFLX, CMP, CBC #### [facility] [address] [place] [address] USAAST [Catalytic activity/Vol]14 U/WJiojzy92-12UzgpecsreSelect Medical Specialty Hospital - Southeast OhioComment on above:Order Comment: Reason for Exam Tobacco use;Dyslipidemia;Encounter for screening for maligna Reason for Exam Dyslipidemia Reason for Exam Hypothyroidism, unspecified typePerformed By: #### LIPID, TSH3 wRFLX, CMP, CBC #### [facility] [address] [place] [address] USABilirubin [Mass/Vol]0.2 mg/dLLow0.3-1.2FProtestant HospitalComment on above:Order Comment: Reason for Exam Tobacco use;Dyslipidemia;Encounter for screening for maligna Reason for Exam Dyslipidemia Reason for Exam Hypothyroidism, unspecified typePerformed By: #### LIPID, TSH3 wRFLX, CMP, CBC #### [facility] [address] [place] [address] USACalcium [Mass/Vol]9.2 mg/dLNormal8.2-10.2FProtestant HospitalComment on above:Order Comment: Reason for Exam Tobacco use;Dyslipidemia;Encounter for screening for maligna Reason for Exam Dyslipidemia Reason for Exam Hypothyroidism, unspecified typePerformed By: #### LIPID, TSH3 wRFLX, CMP, CBC #### [facility] [address] [place] [address] USAChloride [Moles/Vol]98 mmol/QJjokvl88-407FbvizvpfbSelect Medical Specialty Hospital - Southeast OhioComment on above:Order Comment: Reason for Exam Tobacco use;Dyslipidemia;Encounter for screening for maligna Reason for Exam Dyslipidemia Reason for Exam Hypothyroidism, unspecified typePerformed By: #### LIPID, TSH3 wRFLX, CMP, CBC #### [facility] [address] [place] [address] USACO2 [Moles/Vol]27.7 mmol/YTqfrcl74.0-30.0[facility] OhioComment on above:Order Comment: Reason for Exam Tobacco use;Dyslipidemia;Encounter for screening for maligna Reason for Exam Dyslipidemia Reason for Exam Hypothyroidism, unspecified typePerformed By: #### LIPID, TSH3 wRFLX, CMP, CBC #### [facility] [address] [place] [address] USACreatinine [Mass/Vol]1.00 mg/dLNormal0.64-1.27[facility] OhioComment on above:Order Comment: Reason for Exam Tobacco use;Dyslipidemia;Encounter for screening for maligna Reason for Exam Dyslipidemia Reason for Exam Hypothyroidism, unspecified typePerformed By: #### LIPID, TSH3 wRFLX, CMP, CBC #### [facility] [address] [place] [address] USAEstimated GFR ( Keira> 60[facility] Hospitals Health SystemComment on above:Order Comment: Reason for Exam Tobacco use;Dyslipidemia;Encounter for screening for maligna Reason for Exam Dyslipidemia Reason for Exam Hypothyroidism, unspecified typeResult Comment: GFR estimated reference range: According to KDOQI guidelines, <60 ml/min/1.73m2 is sufficient to diagnose a patient with chronic kidney disease.Performed By: #### LIPID, TSH3 wRFLX, CMP, CBC #### [facility] [address] [place] [address] USAEstimated GFR (Non- Am> 60NoGeorgetown Behavioral HospitalComment on above:Order Comment: Reason for Exam Tobacco use;Dyslipidemia;Encounter for screening for maligna Reason for Exam Dyslipidemia Reason for Exam Hypothyroidism, unspecified typePerformed By: #### LIPID, TSH3 wRFLX, CMP, CBC #### [facility] [address] [place] [address] USAGlobulin (S) [Mass/Vol]3.4 g/dLNoGeorgetown Behavioral HospitalComment on above:Order Comment: Reason for Exam Tobacco use;Dyslipidemia;Encounter for screening for maligna Reason for Exam Dyslipidemia Reason for Exam Hypothyroidism, unspecified typePerformed By: #### LIPID, TSH3 wRFLX, CMP, CBC #### [facility] [address] [place] [address] USAGlucose [Mass/Vol]115 mg/hXNvqn09-019HmmnzovsiSelect Medical Specialty Hospital - Southeast OhioComment on above:Order Comment: Reason for Exam Tobacco use;Dyslipidemia;Encounter for screening for maligna Reason for Exam Dyslipidemia Reason for Exam Hypothyroidism, unspecified typeResult Comment: Random Glucose Reference Range is dependent on time and content of last meal. Glucose of more than 200 mg/dL in a nonstressed, ambulatory subject supports the diagnosis of Diabetes Mellitus. ADA recommended reference rangePerformed By: #### LIPID, TSH3 wRFLX, CMP, CBC #### [facility] [address] [place] [id number] USAPotassium [Moles/Vol]4.5 mmol/LNormal3.5-5.1FProtestant HospitalComment on above:Order Comment: Reason for Exam Tobacco use;Dyslipidemia;Encounter for screening for maligna Reason for Exam Dyslipidemia Reason for Exam Hypothyroidism, unspecified typePerformed By: #### LIPID, TSH3 wRFLX, CMP, CBC #### [facility] [address] [place] [id number] USAProtein [Mass/Vol]7.0 g/dLNormal6.1-7.9[facility] OhioComment on above:Order Comment: Reason for Exam Tobacco use;Dyslipidemia;Encounter for screening for maligna Reason for Exam Dyslipidemia Reason for Exam Hypothyroidism, unspecified typePerformed By: #### LIPID, TSH3 wRFLX, CMP, CBC #### [facility] [address] [place] [id number] USASodium [Moles/Vol]134 mmol/HIek844-641JbfnwysvsSelect Medical Specialty Hospital - Southeast OhioComment on above:Order Comment: Reason for Exam Tobacco use;Dyslipidemia;Encounter for screening for maligna Reason for Exam Dyslipidemia Reason for Exam Hypothyroidism, unspecified typePerformed By: #### LIPID, TSH3 wRFLX, CMP, CBC #### [facility] [address] [place] [id number] USAUrea nitrogen [Mass/Vol]12 mg/dLNormal9-23[facility] OhioComment on above:Order Comment: Reason for Exam Tobacco use;Dyslipidemia;Encounter for screening for maligna Reason for Exam Dyslipidemia Reason for Exam Hypothyroidism, unspecified typePerformed By: #### LIPID, TSH3 wRFLX, CMP, CBC #### [facility] [address] [place] [address] USALipid Panelon [id number] [Mass/Vol]214 mg/dL Ycyd547-746PigpsjpczSelect Medical Specialty Hospital - Southeast OhioComment on above:Order Comment: Reason for Exam Tobacco use;Dyslipidemia;Encounter for screening for maligna Reason for Exam Dyslipidemia Reason for Exam Hypothyroidism, unspecified typeResult Comment: Chol less than 200 mg/dl low risk Chol 201-239 mg/dl borderline risk Chol 240 mg/dl and greater high riskPerformed By: #### LIPID, TSH3 wRFLX, CMP, CBC #### [facility] [address] [place] [address] USACholesterol in HDL [Mass/Vol]60 mg/dQZhngno95-01MczkthtiuSelect Medical Specialty Hospital - Southeast OhioComment on above:Order Comment: Reason for Exam Tobacco use;Dyslipidemia;Encounter for screening for maligna Reason for Exam Dyslipidemia Reason for Exam Hypothyroidism, unspecified typeResult Comment: HDL CHOL ATP-III CLASSIFICATION Cardiovascular Risk HDL > or equal to 60 mg/dL LOW HDL < 40 mg/dL HIGHPerformed By: #### LIPID, TSH3 wRFLX, CMP, CBC #### [facility] [address] [place] [address] USACholesterol.total/Cholesterol in HDL [Mass ratio]3.6 {ratio}Normal<5.0[facility] Southeast OhioComment on above:Order Comment: Reason for Exam Tobacco use;Dyslipidemia;Encounter for screening for maligna Reason for Exam Dyslipidemia Reason for Exam Hypothyroidism, unspecified typePerformed By: #### LIPID, TSH3 wRFLX, CMP, CBC #### [facility] [address] [place] [address] USALDL Cholesterol,Ftxfalslop115 mg/dLHigh0-100[facility] OhioComment on above:Order Comment: Reason for Exam Tobacco use;Dyslipidemia;Encounter for screening for maligna Reason for Exam Dyslipidemia Reason for Exam Hypothyroidism, unspecified typeResult Comment: LDL ATP III CLASSIFICATION LDL less than 100 mg/dL Optimal LDL 100-129 mg/dL Near or above optimal LDL 130-159 mg/dL Borderline high LDL 160-189 mg/dL High LDL greater than 189 mg/dL Very highPerformed By: #### LIPID, TSH3 wRFLX, CMP, CBC #### [facility] [address] [place] [address] USATriglyceride w/Gzvkkz169 mg/fPLvslcz05-778PagnqxujeSelect Medical Specialty Hospital - Southeast OhioComment on above:Order Comment: Reason for Exam Tobacco use;Dyslipidemia;Encounter for screening for maligna Reason for Exam Dyslipidemia Reason for Exam Hypothyroidism, unspecified typeResult Comment: TRIG ATP III CLASSIFICATION TRIG less than 150 mg/dL Normal TRIG 150-199 mg/dL Borderline high TRIG 200-500 mg/dL High TRIG greater than 500 mg/dL Very high Standard traceable to the Center for Disease Conrtrol and Prevention (CDC) test method.Performed By: #### LIPID, TSH3 wRFLX, CMP, CBC #### [facility] [address] [place] [address] USAVLDL ODHEBCXFHPC71 mg/dLNoGeorgetown Behavioral HospitalComment on above:Order Comment: Reason for Exam Tobacco use;Dyslipidemia;Encounter for screening for maligna Reason for Exam Dyslipidemia Reason for Exam Hypothyroidism, unspecified typePerformed By: #### LIPID, TSH3 wRFLX, CMP, CBC #### [place] [address] USAThyroid Stim Hormone w/Rflxon 73-01-3739Lyqybfv Stim Hormone w/Rflx1.62 u[iU]/mLNormal0.45-5.33[facility] [place] Comment on above:Order Comment: Reason for Exam Tobacco use;Dyslipidemia;Encounter for screening for maligna Reason for Exam Dyslipidemia Reason for Exam Hypothyroidism, unspecified typeResult Comment: PERFORMED BY: [place] [address] PATHOLOGIST WEB COORDINATOR CHANDRAKANT ZARCO M.D.Performed By: #### LIPID, TSH3 wRFLX, CMP, CBC #### [facility] [address] [place], [place] [id number] USAComprehensive Metabolic Panelon [id number] [Mass/Vol]3.6 g/dLNormal3.2-5.5FProtestant HospitalComment on above:Order Comment: Reason for Exam Hypothyroidism, unspecified type Reason for Exam Hyperlipidemia, unspecifiedPerformed By: #### CMP, LIPID, THYROID SC, SCAN CBC #### [facility] [address] [place] [address] USAAlbumin/Globulin [Mass ratio]1.2 {ratio}[facility] Hospitals Health SystemComment on above:Order Comment: Reason for Exam Hypothyroidism, unspecified type Reason for Exam Hyperlipidemia, unspecifiedPerformed By: #### CMP, LIPID, THYROID SC, SCAN CBC #### [facility] [address] [place] [address] USAALP [Catalytic activity/Vol]71 U/UJlxxon89-62LjfszpuwbSelect Medical Specialty Hospital - Southeast OhioComment on above:Order Comment: Reason for Exam Hypothyroidism, unspecified type Reason for Exam Hyperlipidemia, unspecifiedPerformed By: #### CMP, LIPID, THYROID SC, SCAN CBC #### [facility] [address] [place] [address] USAALT [Catalytic activity/Vol]13 U/QDlyapg62-39MwgjcjngdSelect Medical Specialty Hospital - Southeast OhioComment on above:Order Comment: Reason for Exam Hypothyroidism, unspecified type Reason for Exam Hyperlipidemia, unspecifiedPerformed By: #### CMP, LIPID, THYROID SC, SCAN CBC #### [facility] [address] [place] [address] USAAST [Catalytic activity/Vol]15 U/MPpcsgg14-32VraflbrllSelect Medical Specialty Hospital - Southeast OhioComment on above:Order Comment: Reason for Exam Hypothyroidism, unspecified type Reason for Exam Hyperlipidemia, unspecifiedPerformed By: #### CMP, LIPID, THYROID SC, SCAN CBC #### [facility] [address] [place] [address] USABilirubin [Mass/Vol]0.4 mg/dLNormal0.3-1.2FProtestant HospitalComment on above:Order Comment: Reason for Exam Hypothyroidism, unspecified type Reason for Exam Hyperlipidemia, unspecifiedPerformed By: #### CMP, LIPID, THYROID SC, SCAN CBC #### [facility] [address] [place] [address] USACalcium [Mass/Vol]9.2 mg/dLNormal8.2-10.2FProtestant HospitalComment on above:Order Comment: Reason for Exam Hypothyroidism, unspecified type Reason for Exam Hyperlipidemia, unspecifiedPerformed By: #### CMP, LIPID, THYROID SC, SCAN CBC #### [facility] [address] [place] [address] USAChloride [Moles/Vol]100 mmol/SRzaerg37-283LapkmppbzSelect Medical Specialty Hospital - Southeast OhioComment on above:Order Comment: Reason for Exam Hypothyroidism, unspecified type Reason for Exam Hyperlipidemia, unspecifiedPerformed By: #### CMP, LIPID, THYROID SC, SCAN CBC #### [facility] [address] [place] [address] USACO2 [Moles/Vol]28.2 mmol/ZBqspqs72.0-30.0[facility] OhioComment on above:Order Comment: Reason for Exam Hypothyroidism, unspecified type Reason for Exam Hyperlipidemia, unspecifiedPerformed By: #### CMP, LIPID, THYROID SC, SCAN CBC #### [facility] [address] [place] [address] USACreatinine [Mass/Vol]0.94 mg/dLNormal0.64-1.27[facility] OhioComment on above:Order Comment: Reason for Exam Hypothyroidism, unspecified type Reason for Exam Hyperlipidemia, unspecifiedPerformed By: #### CMP, LIPID, THYROID SC, SCAN CBC #### [facility] [address] [place] [address] USAEstimated GFR ( Keira> 60NoGeorgetown Behavioral HospitalComment on above:Order Comment: Reason for Exam Hypothyroidism, unspecified type Reason for Exam Hyperlipidemia, unspecifiedResult Comment: GFR estimated reference range: According to KDOQI guidelines, <60 ml/min/1.73m2 is sufficient to diagnose a patient with chronic kidney disease.Performed By: #### CMP, LIPID, THYROID SC, SCAN CBC #### [facility] [address] [place] [address] USAEstimated GFR (Non- Am> 60NormCincinnati Children's Hospital Medical CenterComment on above:Order Comment: Reason for Exam Hypothyroidism, unspecified type Reason for Exam Hyperlipidemia, unspecifiedPerformed By: #### CMP, LIPID, THYROID SC, SCAN CBC #### [facility] [address] [place] [id number] USAGlobulin (S) [Mass/Vol]3.1 g/dLNormCincinnati Children's Hospital Medical CenterComment on above:Order Comment: Reason for Exam Hypothyroidism, unspecified type Reason for Exam Hyperlipidemia, unspecifiedPerformed By: #### CMP, LIPID, THYROID SC, SCAN CBC #### [facility] [address] [place] [id number] USAGlucose [Mass/Vol]90 mg/qVQtezgl25-923UczowpaajSelect Medical Specialty Hospital - Southeast OhioComment on above:Order Comment: Reason for Exam Hypothyroidism, unspecified type Reason for Exam Hyperlipidemia, unspecifiedResult Comment: Random Glucose Reference Range is dependent on time and content of last meal. Glucose of more than 200 mg/dL in a nonstressed, ambulatory subject supports the diagnosis of Diabetes Mellitus. ADA recommended reference rangePerformed By: #### CMP, LIPID, THYROID SC, SCAN CBC #### [facility] [address] [place] [address] USAPotassium [Moles/Vol]4.4 mmol/LNormal3.5-5.1FProtestant HospitalComment on above:Order Comment: Reason for Exam Hypothyroidism, unspecified type Reason for Exam Hyperlipidemia, unspecifiedPerformed By: #### CMP, LIPID, THYROID SC, SCAN CBC #### [facility] [address] [place] [address] USAProtein [Mass/Vol]6.7 g/dLNormal6.1-7.9[facility] OhioComment on above:Order Comment: Reason for Exam Hypothyroidism, unspecified type Reason for Exam Hyperlipidemia, unspecifiedPerformed By: #### CMP, LIPID, THYROID SC, SCAN CBC #### [facility] [address] [place] [address] USASodium [Moles/Vol]136 mmol/VJmwliq657-426TisqelkfdSelect Medical Specialty Hospital - Southeast OhioComment on above:Order Comment: Reason for Exam Hypothyroidism, unspecified type Reason for Exam Hyperlipidemia, unspecifiedPerformed By: #### CMP, LIPID, THYROID SC, SCAN CBC #### [facility] [address] [place] [id number] USAUrea nitrogen [Mass/Vol]9 mg/dLNormal9-23[facility] OhioComment on above:Order Comment: Reason for Exam Hypothyroidism, unspecified type Reason for Exam Hyperlipidemia, unspecifiedPerformed By: #### CMP, LIPID, THYROID SC, SCAN CBC #### [facility] [address] [place] [address] USALipid Panelon [id number] [Mass/Vol]177 mg/dL Wikoth513-573AfibogglcSelect Medical Specialty Hospital - Southeast OhioComment on above:Order Comment: Reason for Exam Hypothyroidism, unspecified type Reason for Exam Hyperlipidemia, unspecifiedResult Comment: Chol less than 200 mg/dl low risk Chol 201-239 mg/dl borderline risk Chol 240 mg/dl and greater high riskPerformed By: #### CMP, LIPID, THYROID SC, SCAN CBC #### [facility] [address] [place] [address] USACholesterol in HDL [Mass/Vol]61 mg/mASsjbou90-15YnqinkpgxSelect Medical Specialty Hospital - Southeast OhioComment on above:Order Comment: Reason for Exam Hypothyroidism, unspecified type Reason for Exam Hyperlipidemia, unspecifiedResult Comment: HDL CHOL ATP-III CLASSIFICATION Cardiovascular Risk HDL > or equal to 60 mg/dL LOW HDL < 40 mg/dL HIGHPerformed By: #### CMP, LIPID, THYROID SC, SCAN CBC #### [facility] [address] [place] [address] USACholesterol.total/Cholesterol in HDL [Mass ratio]2.9 {ratio}Normal<5.0[facility] OhioComment on above:Order Comment: Reason for Exam Hypothyroidism, unspecified type Reason for Exam Hyperlipidemia, unspecifiedPerformed By: #### CMP, LIPID, THYROID SC, SCAN CBC #### [facility] [address] [place] [address] USALDL Cholesterol,Cwuwobtbof431 mg/dLHigh0-100[facility] OhioComment on above:Order Comment: Reason for Exam Hypothyroidism, unspecified type Reason for Exam Hyperlipidemia, unspecifiedResult Comment: LDL ATP III CLASSIFICATION LDL less than 100 mg/dL Optimal LDL 100-129 mg/dL Near or above optimal LDL 130-159 mg/dL Borderline high LDL 160-189 mg/dL High LDL greater than 189 mg/dL Very highPerformed By: #### CMP, LIPID, THYROID SC, SCAN CBC #### [facility] [address] [place] [address] USATriglyceride w/Qimlub15 mg/bQWzkldf85-742TcuvdbyfhSelect Medical Specialty Hospital - Southeast OhioComment on above:Order Comment: Reason for Exam Hypothyroidism, unspecified type Reason for Exam Hyperlipidemia, unspecifiedResult Comment: TRIG ATP III CLASSIFICATION TRIG less than 150 mg/dL Normal TRIG 150-199 mg/dL Borderline high TRIG 200-500 mg/dL High TRIG greater than 500 mg/dL Very high Standard traceable to the Center for Disease Conrtrol and Prevention (CDC) test method.Performed By: #### CMP, LIPID, THYROID SC, SCAN CBC #### [place] [address] USAVLDL XJCABQFRJME38 mg/dLNormalSelect Medical Specialty Hospital - Southeast OhioComment on above:Order Comment: Reason for Exam Hypothyroidism, unspecified type Reason for Exam Hyperlipidemia, unspecifiedPerformed By: #### CMP, LIPID, THYROID SC, SCAN CBC #### [place] [address] USAScan and CBCon [id number] (Bld) [#/Vol]0.0 10*3/uLNormal0.0-0.2FProtestant HospitalComment on above:Order Comment: Reason for Exam Hypothyroidism, unspecified typePerformed By: #### CMP, LIPID, THYROID SC, SCAN CBC #### [place] [address] USABasophils/100 WBC (Bld)0.8 %Normal.[facility] - Southeast OhioComment on above:Order Comment: Reason for Exam Hypothyroidism, unspecified typePerformed By: #### CMP, LIPID, THYROID SC, SCAN CBC #### [place] [address] USAEosinophils (Bld) [#/Vol]0.5 10*3/uLHigh0.0-0.45[facility] - Southeast OhioComment on above:Order Comment: Reason for Exam Hypothyroidism, unspecified typePerformed By: #### CMP, LIPID, THYROID SC, SCAN CBC #### [place] [address] USAEosinophils/100 WBC (Bld)7.9 %Normal.[facility] Southeast OhioComment on above:Order Comment: Reason for Exam Hypothyroidism, unspecified typePerformed By: #### CMP, LIPID, THYROID SC, SCAN CBC #### [facility] [address] [place] [address] USAErythrocyte distribution width (RBC) [Ratio]13.3 %Normal 12.0-14.8[facility] OhioCombronson [facility] on above:Order Comment: Reason for Exam Hypothyroidism, unspecified typePerformed By: #### CMP, LIPID, THYROID SC, SCAN CBC #### [facility] [address] [place] [address] USAHematocrit (Bld) [Volume fraction]44.3 %Ajbdsz63.8-50.0 [facility] OhioComment on above:Order Comment: Reason for Exam Hypothyroidism, unspecified typePerformed By: #### CMP, LIPID, THYROID SC, SCAN CBC #### [place] [address] USAHemoglobin (Bld) [Mass/Vol]14.8 g/mHTnyngz01.0-17.0 [facility] OhioCom[facility] on above:Order Comment: Reason for Exam Hypothyroidism, unspecified typePerformed By: #### CMP, LIPID, THYROID SC, SCAN CBC #### [facility] [address] [place] [address] USALymphocytes (Bld) [#/Vol]2.3 10*3/uLNormal1.00-4.8 [facility]Com[facility] on above:Order Comment: Reason for Exam Hypothyroidism, unspecified typePerformed By: #### CMP, LIPID, THYROID SC, SCAN CBC #### [facility] [address] [place] [address] USALymphocytes/100 WBC (Bld)38.6 %Normal.[facility] OhioComment on above:Order Comment: Reason for Exam Hypothyroidism, unspecified typePerformed By: #### CMP, LIPID, THYROID SC, SCAN CBC #### [facility] [address] [place] [address] USAMCH (RBC) [Entitic mass]32.0 ymNxpxbw16.5-35.2FProtestant HospitalComment on above:Order Comment: Reason for Exam Hypothyroidism, unspecified typePerformed By: #### CMP, LIPID, THYROID SC, SCAN CBC #### [facility] [address] [place] [address] USAMCV (RBC) [Entitic vol]95.7 vHUrfyfk37.5-101[facility] OhioCom[facility] on above:Order Comment: Reason for Exam Hypothyroidism, unspecified typePerformed By: #### CMP, LIPID, THYROID SC, SCAN CBC #### [facility] [address] [place] [address] USAMean Corpuscular HGB Conc33.5 g/sPChknaj53.5-35.6FProtestant HospitalCombronson methodist hospital on above:Order Comment: Reason for Exam Hypothyroidism, unspecified typePerformed By: #### CMP, LIPID, THYROID SC, SCAN CBC #### [place] [address] USAMonocytes (Bld) [#/Vol]0.4 10*3/uLNormal0.0-0.8[facility] OhioCom[facility] hospital on above:Order Comment: Reason for Exam Hypothyroidism, unspecified typePerformed By: #### CMP, LIPID, THYROID SC, SCAN CBC #### [place] [address] USAMonocytes/100 WBC (Bld)7.0 %Normal.[facility] OhioCom[facility] hospital on above:Order Comment: Reason for Exam Hypothyroidism, unspecified typePerformed By: #### CMP, LIPID, THYROID SC, SCAN CBC #### [place] [address] USANeutrophils (Bld) [#/Vol]2.7 10*3/uLNormal1.8-7.7FProtestant HospitalCombronson methodist hospital on above:Order Comment: Reason for Exam Hypothyroidism, unspecified typePerformed By: #### CMP, LIPID, THYROID SC, SCAN CBC #### [place] [address] USANeutrophils/100 WBC (Bld)45.7 %Normal.[facility] OhioCom[facility] hospital on above:Order Comment: Reason for Exam Hypothyroidism, unspecified typePerformed By: #### CMP, LIPID, THYROID SC, SCAN CBC #### [place] [address] USANucleated RBC/100 WBC (Bld) [Ratio]0.1 %Normal0-0.5 [facility] OhioComment on above:Order Comment: Reason for Exam Hypothyroidism, unspecified typePerformed By: #### CMP, LIPID, THYROID SC, SCAN CBC #### [place] [address] USAPlatelet EstimateNormalNormalNormCincinnati Children's Hospital Medical CenterComment on above:Order Comment: Reason for Exam Hypothyroidism, unspecified typePerformed By: #### CMP, LIPID, THYROID SC, SCAN CBC #### [place] [address] USAPlatelet mean volume (Bld) [Entitic vol]7.5 fLNormal 6.6-10.1FProtestant HospitalComment on above:Order Comment: Reason for Exam Hypothyroidism, unspecified typePerformed By: #### CMP, LIPID, THYROID SC, SCAN CBC #### [place] [address] USAPlatelet MorphologyNormalNormalNoGeorgetown Behavioral HospitalComment on above:Order Comment: Reason for Exam Hypothyroidism, unspecified typeResult Comment: PERFORMED BY: [place] [address] PATHOLOGIST WEB COORDINATOR CHANDRAKANT ZARCO M.D.Performed By: #### CMP, LIPID, THYROID SC, SCAN CBC #### [place] [address] USAPlatelets (Bld) [#/Vol]252 10*3/sTRcdiyf329-536VmhcrtxheSelect Medical Specialty Hospital - Southeast OhioComment on above:Order Comment: Reason for Exam Hypothyroidism, unspecified typePerformed By: #### CMP, LIPID, THYROID SC, SCAN CBC #### [place] [address] USARBC (Bld) [#/Vol]4.63 10*6/uLNormal3.90-5.60[facility] OhioComment on above:Order Comment: Reason for Exam Hypothyroidism, unspecified typePerformed By: #### CMP, LIPID, THYROID SC, SCAN CBC #### [address]RB morphology finding Nom (Bld)NormalNormalSelect Medical Specialty Hospital - Southeast OhioComment on above:Order Comment: Reason for Exam Hypothyroidism, unspecified typePerformed By: #### CMP, LIPID, THYROID SC, SCAN CBC #### [place] [address] USAWBC (Bld) [#/Vol]5.9 10*3/uLNormal4.5-11.0[facility] OhioComment on above:Order Comment: Reason for Exam Hypothyroidism, unspecified typePerformed By: #### CMP, LIPID, THYROID SC, SCAN CBC #### [place] [address] USATHYROID SCREENon 95-52-4835Stzj T4 [Mass/Vol]0.98 ng/dL Normal0.61-1.12[facility] Southeast OhioComment on above:Order Comment: Reason for Exam Hypothyroidism, unspecified type Reason for Exam Hyperlipidemia, unspecifiedPerformed By: #### CMP, LIPID, THYROID SC, SCAN CBC #### [place] [id number] [facility]STS Qn0.92 m[IU]/LNormal0.45-5.33[facility] OhioComment on above:Order Comment: Reason for Exam Hypothyroidism, unspecified type Reason for Exam Hyperlipidemia, unspecifiedResult Comment: PERFORMED BY: [place] [address] PATHOLOGIST WEB COORDINATOR CHANDRAKANT ZARCO M.D.Performed By: #### CMP, LIPID, THYROID SC, SCAN CBC #### [place] [id number] [facility] Vital Signs Date TimeVital SignValuePerforming SzrnyrejhPrsbgufv31-56-8828 08:58-0400Body lipjxz184.7 cmSiddhartha Jones MD Work Phone: NODoctors Hospital of SpringfieldBsnascoaoz48-99-7587 08:58-0400Body mass index (BMI) [Ratio]24.63 kg/m2Siddhartha Jones MD Work Phone: [facility] HospitalBiymuarrkk03-72-6649 08:58-0400Body temperature 97.11 [degF]Siddhartha Jones MD Work Phone: [facility] HospitalAyppwoxelv98-81-1773 08:58-0400Body rzjmag60.48 kgSiddhartha Jones MD Work Phone: [facility] HospitalVwcstnlvnr48-70-0109 08:58-0400Diastolic blood zfkcpijm44 mm[Hg]Siddhartha Jones MD Work Phone: [phone] [place], [place] [address]Gifjdgkebc63-03-3991 08:58-0400Heart rate65 /min Siddhartha Jones MD Work Phone: [facility] HospitalDbascykkjq47-23-1626 08:58-0400Respiratory rate18 /minSiddhartha Jones MD Work Phone: [facility] HospitalBgwiutdqbt34-58-3664 08:58-7529HoK9% (BldA) [Mass fraction]93 %Siddhartha Jones MD Work Phone: [facility] HospitalPvimuesxju18-72-1093 08:58-0400Systolic blood dlggcfah912 mm[Hg]Siddhartha Jones MD Work Phone: [facility] HospitalKfuyuxvqxe19-46-6312 09:04-0500Body spkblo376.7 cmSiddhartha Jones MD Work Phone: [facility] HospitalKbvrqnwfbp35-27-6971 09:04-0500Body mass index (BMI) [Ratio]25.54 kg/m2Siddhartha Jones MD Work Phone: [facility] HospitalGbkixiurov29-86-7435 09:04-0500Body temperature 97.81 [degF]Siddhartha Jones MD Work Phone: [facility] HospitalMdmprbaeda60-04-2275 09:04-0500Body .2 kg Siddhartha Jones MD Work Phone: [facility] HospitalXfrvoreubo93-06-1405 09:04-0500Diastolic blood dupuvmen83 mm[Hg]Siddhartha Jones MD Work Phone: noDoctors Hospital of SpringfieldTgijytkcya79-48-9597 09:04-0500Heart rate70 /min Siddhartha Jones MD Work Phone: noDoctors Hospital of SpringfieldSugmmlzbav07-12-2264 09:04-0500Respiratory rate18 /minSiddhartha Jones MD Work Phone: [facility] HospitalTvzjzdtceb11-14-7381 09:04-1027UqV0% (BldA) [Mass fraction]93 %Siddhartha Jones MD Work Phone: noDoctors Hospital of SpringfieldDogvmbuahc18-95-5411 09:04-0500Systolic blood tlawhecq367 mm[Hg]Siddhartha Jones MD Work Phone: [facility] HospitalLvurjjgbax04-93-6225 10:51-0400Body .1 cmBemadonna Barron MD Work Phone: [facility]06-21-2023 10:51-0400 Body mass index (BMI) [Ratio]27.65 kg/v6MmfqvmmjJorge Barron MD Work Phone: [facility]06-21-2023 10:51-0400 Body bojquh87 kgJorge Barron MD Work Phone: [facility] Encounters Encounter DateEncounter TypeCare ProviderFacilityStart: 09-15-2024 End: 73-00-7628ywamyntqmvNCBDRAParma [facility] Start: 09-03-2024 End: 98-64-1216Mrtikndxn Result EncounterGeneric External Data ProviderNOMS External Department UnsolicitedStart: 09-03-2024 End: 09-62-6799Yzzlxnrok Result EncounterGeneric External Data ProviderNOMS External Department UnsolicitedStart: 08-26-2024 End: 73-44-1648Fkkhkx flowsheetJerhonda Aldridge PT Work Phone: noms CI PTStart: 08-26-2024 End: 77-53-1057Djsvwp Sabiha Aldridge PT Work Phone: noms CI PTStart: 08-26-2024 End: 47-63-3877qauvqigqbxTcmazv T Blackston PT Work Phone: noms CI PTComment on above:Left cervical radiculopathy (Primary Dx); Muscle left arm weaknessStart: 08-13-2024 End: 01-30-6962knkopuxiljKslwrd T Blackston PT Work Phone: noms CI PTComment on above:Left cervical radiculopathy (Primary Dx); Muscle left arm weaknessStart: 08-13-2024 End: 54-92-9694Zyiwnd Sabiha Aldridge PT Work Phone: noms CI PTStart: 08-13-2024 End: 54-33-4304Qfnisv Sabiha Aldridge PT Work Phone: noms CI PTStart: 08-08-2024 End: 73-81-5482mhjrcjoznqLDHFPGPN BRINKNot AvailableStart: 08-06-2024 End: 96-37-2702Gqvwvy Donna Burleson PTANOMS CI PTStart: 08-06-2024 End: 24-34-1111Daarwi Donna Burleson PTANOMS CI PTStart: 08-06-2024 End: 89-59-0871imyyvzxhrwFubbgmt Lawrence PTANOMS CI PTComment on above:Left cervical radiculopathy (Primary Dx); Muscle left arm weaknessStart: 08-04-2024 End: 10-55-9455Qbfrcb flowsheetRuthissa Kelbley PTANOMS CI PTStart: 08-04-2024 End: 93-29-4520Hdqyec flowsheetMelissa Kelbley PTANOMS CI PTStart: 08-04-2024 End: 15-58-0952xmvjdtsqxeLzcqyqe Kelbley PTANOMS CI PTComment on above:Left cervical radiculopathy (Primary Dx); Muscle left arm weaknessStart: 07-29-2024 End: 75-72-8858bokbnbzcjhQdlqtp T Blackston PT Work Phone: N[facility] CI PTComment on above:Left cervical radiculopathy (Primary Dx); Muscle left arm weaknessStart: 07-29-2024 End: 33-38-3102Enqcpv flowsLeonarhonda Mikhail Aldridge PT Work Phone: [facility] CI PTStart: 07-29-2024 End: 07-19-4872Qmwamd flowsheetAbnerremy T Pina PT Work Phone: [facility] CI PTStart: 07-21-2024 End: 88-86-1263Tovezf Trevon Jones MD Work Phone: [facility] CWM FMStart: 07-21-2024 End: 83-65-4149Pievuodevin Jones MD Work Phone: [facility]WM FMStart: 07-21-2024 End: 36-56-0688Ecvqdf outpatient visit 25 minutesSiddhartha Jones MD Work Phone: [facility] C[facility] FMComment on above:MDD (major depressive disorder), recurrent episode, moderate (CMS/HCC) (Primary Dx); Generalized anxiety disorder (CMS/HCC); Chronic obstructive pulmonary disease, unspecified COPD type (CMS/HCC); Gastroesophageal reflux disease without esophagitis; Chronic neck painStart: 07-21-2024 End: 14-69-3903bdpfggdnfbQLAB NADERERNot AvailableStart: 07-01-2024 End: 10-08-0475Rovdiqnkm Result EncounterGeneric External Data ProviderNOMS External Department UnsolicitedStart: 07-01-2024 End: 27-97-0780Wgefudiow Result EncounterGeneric External Data ProviderNOMS External Department UnsolicitedStart: 06-16-2024 End: 25-03-6536WszwwyCayla Jones MD Work Phone: [facility] CWM FMComment on above:Neck pain (Primary Dx)Neck painStart: 04-11-2024 End: 26-52-2101wyjtfynfjvJUMOGPVAccess Hospital [facility] Start: 02-21-2024 End: 35-57-9983Zfinfqqgh Result EncounterSiddhartha Jones MD Work Phone: noms External Department UnsolicitedStart: 02-21-2024 End: 96-89-9073Kcxmghfbz Result EncounterSiddhartha Jones MD Work Phone: noms External Department UnsolicitedStart: 01-21-2024 End: 48-17-6770Ceqlii flowsMera Jones MD Work Phone: noms CWM FMStart: 01-21-2024 End: 67-93-9408Sfrgvz Trevon Jones MD Work Phone: noms CWM FMStart: 01-21-2024 End: 08-48-0197Jcdigj outpatient visit 25 minutesSiddhartha Jones MD Work Phone: noms CWM FMComment on above:MDD (major depressive disorder), recurrent episode, moderate (CMS/HCC) (Primary Dx); Generalized anxiety disorder (CMS/HCC); Chronic obstructive pulmonary disease, unspecified COPD type (CMS/HCC); Gastroesophageal reflux disease without esophagitis; Adult hypothyroidism (CMS/HCC); Prediabetes; Dyslipidemia (CMS/HCC); Encounter for long-term current use of medication; Screening PSA (prostate specific antigen); Non-occlusive coronary artery disease (CMS/HCC)Start: 01-21-2024 End: 87-02-2278klscmpzthwLZVX NADERERNot AvailableStart: 10-15-2023 End: 62-66-7991xsqyaxqyigINWIWTOSamaritan Hospital Start: 09-06-2022 End: 36-73-1243uyycjsjrjbRzulatoryDr. Arleth Malloycility:CStart: 09-06-2022 End: 65-14-1744Vsrdtacroj hospital visit by physicianJorge Barron MD Work Phone: cmc AIB LEGACYComment on above:Solitary pulmonary nodule; Nicotine dependence, cigarettes, uncomplicated; Chronic obstructive pulmonary disease, unspecified (CMS/HCC); Gastro-esophageal reflux disease without esophagitis; Pure hypercholesterolemia, unspecified; Anxiety disorder, unspecified; Depression, unspecified; Hyperlipidemia, unspecified; Other forms of dyspnea; Hypothyroidism, unspecified; Cannabis abuse, uncomplicatedStart: 51-90-6719AUYJNKNZIT, Provider: Jennifer Sykes, Status: Pen, Time: 10:30 Denise Barron MD Work Phone: [phone]-Klhu [employer] [facility] Work Phone: start: 80-02-6098ydhdqnosnoISA UNKNOWNFacility:[facility] Start: 18-05-1003JKCKEFlkcqfie Young MD Work Phone: [phone]-Wkqp [employer] [facility] Work Phone: start: 07-28-2022 End: 17-68-0119jvpqwukijvEEAUVE SAMSA .Facility:F2Tmmxc: 64-15-3256Kmbhlgpxf for preprocedural laboratory examinationMOTION [facility] .[facility] Rehabilitationtart: 07-10-2022 End: 02-01-6032sieyqxmrkiDQHOAH SAMSA .Facility:B6Myslv: 44-83-7990Kllvmgonq for preprocedural cardiovascular examinationMOTION [facility] & [facility] .[facility] Start: 07-06-2022 End: 13-71-0826sorhkawhzwIPKYJE SAMSA .Facility:J0Gkruj: 07-06-2022 End: 74-70-8647Qcqfwvhcy for preprocedural laboratory examinationM[facility]ION [facility] & [facility] . Facility:B7Ppbpr: 07-03-2022 End: 22-94-3228hbrhbbhqvaQAAMHJ SAMSA .Facility:E2Xaicd: 07-03-2022 End: 95-26-2773Smbzcgcba for preprocedural cardiovascular examinationMOTION [facility] & [facility] .Facility:E0Yaobq: 06-22-2022 End: 47-44-0166cpbbupbqwnDT SIDDHARTHA Corrales NADELLENRFacility:W0Ijaye: 06-21-2022 End: 09-64-1107hdaecfjbinRJ DOT R ZIEBERFacility:U9Lplau: 06-12-2022 End: 29-10-4555xhyrnxxfsjFY SIDDHARTHA Antoni NADERERFacility:I7Uyxpq: 01-24-2022 End: 04-01-5835mhiglwmdwbEG SIDDHARTHA Corrales NADERERFacility:K6Ksstilm encounter status Jorge Barron MD Work Phone: [phone]-Sjql [facility] Work Phone: Procedures DateProcedureProcedure DetailPerforming ClinicianStart: 25-58-5982Pgy spinal canal cervical w/o contrast matrlGeneric External Data ProviderStart: 07-01-2024 MR SHOULDER LEFT W/OGeneric External Data ProviderStart: 46-47-9545XZH CBC WITH AUTO DIFFSiddhartha Jones MD Work Phone: Start: 32-48-3283Xowhdhyu identified in Unspecified specimen by CultureJorge Barron MD Work Phone: Start: 68-66-0616Jkoghc identified in Unspecified specimen by CultureJorge Barron MD Work Phone: Start: 20-47-5672Utqxtmgkhzgzd sp identified in Unspecified specimen by Organism specific cultureJorge Barron MD Work Phone: Start: 95-73-7748XfurvqbcrwxcXfkqtk Jd [facility] Work Phone: start: 70-32-3233PFBBLWFW NON-MANAGER SUPPLY CHAIN PLANNING RESULTSBemadonna Barron MD Work Phone: Start: 46-81-0912BKWGCEWI PATHOLOGY RESULTSBemadonna Barron MD Work Phone: Start: 15-14-8112QBE screeningDR DOT ISAACSomment on above:Performed By: #### CCPAB #### [facility] [address] [place] [address] Dr. Hamida MendezStart: 49-51-0845GzczfyodeinNrqk Naderer MD Work Phone: Plan of Treatment DateCare ActivityDetailAuthorStart: 31-71-5715Rmhpfbbco for malignant neoplasm of colonNOMS HealthcareStart: 01-21-2025 End: 00-62-9383Hjrtbin encounter eovjhodlz08/05/2025 9:00 AM EST Office Visit [facility] [address] [place] [address] Siddhartha Jones MD [address] [place] [address] [facility] CWM FMStart: 20-89-3424Dtaapufdd vaccinationInfluenza Vaccine (Season Ended)NOMS HealthcareStart: 09-01-2024 End: 31-01-9011euqpwuwrgl04/16/2025 11:30 AM EDT Treatment [facility] [address] [place] [address] Oneil Rivero, TELECOM NETWORK MANAGER [facility]OM[facility] CI PTStart: 08-28-2024 End: 21-07-8217kvumkuphvk68/12/2025 11:30 AM EDT Treatment [facility] [address] [place] [address] Chiqui Allen, TELECOM NETWORK MANAGER [facility] CI PTStart: 08-26-2024 End: 11-98-6051wxxcjvbuyw81/10/2025 11:30 AM EDT Treatment [facility] [address] [place] [address] Marcus Aldridge, PT [address] [place] [address] ArrivedNOMS CI PTComment on above:ArrivedStart: 08-13-2024 End: 31-04-1505nbahmkagrv19/28/2025 3:30 PM EDT Treatment [facility] [address] [place] [address] Marcus Aldridge, PT [address] [place] [address] ArrivedNOMS CI PTComment on above:ArrivedStart: 08-08-2024 End: 37-41-4167ispilkcscp57/23/2025 1:00 PM EDT Treatment [facility] [address] [facility] [address] [place] [address] Oneil Rivero, TELECOM NETWORK MANAGER [facility] CI PTStart: 08-06-2024 End: 79-62-9589gtfjgmgjmsYTXN CI PTComment on above:Left cervical radiculopathy (Primary Dx); Muscle left arm weaknessStart: 08-04-2024 End: 57-08-5064tlohgzvspeRVIN CI PTComment on above:Left cervical radiculopathy (Primary Dx); Muscle left arm weaknessStart: 07-31-2024 End: 23-07-2681osdsmfjuap02/15/2025 2:00 PM EDT Treatment [facility] [address] [facility] [address] [place] [address] Oneil Rivero, ADOLFO [facility] CI PTStart: 07-29-2024 End: 48-39-4363xwmiojdmpl53/13/2025 3:00 PM EDT Evaluation [facility] [address] [facility] [address] [place] [address] Marcus Aldridge, PT [address] [facility] [address] [place] [address] ArrivedNOMS CI PTComment on above:ArrivedStart: 07-21-2024 End: 36-27-0720Xeoqeld encounter procedureNOMS CWM FMComment on above:Arrived Start: 01-21-2024 End: 04-55-1990Jmjvg metabolic 1998 panel - Serum or PlasmaBasic metabolic panel Lab Routine Encounter for long-term current use of medication Expected: 2023 (Approximate), Expires: 01/20/2025NOMS HealthcareComment on above:Expected: 01/21/2024 (Approximate), Expires: 01/20/2025Start: 01-21-2024 End: 34-02-7022GDY W Auto Differential panel - BloodCBC and differential Lab Routine Encounter for long-term current use of medication Expected: 01/21/2024 (Approximate), Expires: 01/20/2025[facility] HealthcareComment on above:Expected: 01/21/2024 (Approximate), Expires: 01/20/2025Start: 01-21-2024 End: 45-33-7215Whujopodpo A1c/Hemoglobin.total in BloodHemoglobin A1c Lab Routine Prediabetes Expected: 01/21/2024 (Approximate), Expires: 01/20/2025[facility] Healthcare Work Phone: Comment on above:Expected: 01/21/2024 (Approximate), Expires: 01/20/2025Start: 01-21-2024 End: 09-07-4999Soodtqt function 2000 panel - Serum or PlasmaHepatic function panel Lab Routine Encounter for long-term current use of medication Expected: 01/21/2024 (Approximate), Expires: 01/20/2025[facility] HealthcareComment on above: Expected: 01/21/2024 (Approximate), Expires: 01/20/2025Start: 01-21-2024 End: 39-35-5206Fvtol 1996 panel - Serum or PlasmaLipid panel Lab Routine Dyslipidemia ([facility]/HCC) Expected: 01/21/2024 (Approximate), Expires: 01/20/2025 NOMS HealthcareComment on above:Expected: 01/21/2024 (Approximate), Expires: 01/20/2025Start: 01-21-2024 End: 10-90-5670Xctfkluh specific Ag [Mass/volume] in Serum or PlasmaPSA Lab Routine Screening PSA (prostate specific antigen) Expected: 01/21/2024 (Approximate), Expires: 01/20/2025[facility] HealthcareComment on above:Expected: 01/21/2024 (Approximate), Expires: 01/20/2025Start: 01-21-2024 End: 21-27-3422Kweikrpuisn [Units/volume] in Serum or PlasmaTSH Lab Routine Adult hypothyroidism ([facility]/HCC) Expected: 01/21/2024 (Approximate), Expires: 01/20/2025[facility] HealthcareComment on above:Expected: 01/21/2024 (Approximate), Expires: 01/20/2025Start: 01-21-2024 End: 65-43-2024Yzyyeqvet (T4) free [Mass/volume] in Serum or PlasmaT4, free Lab Routine Adult hypothyroidism (CMS/HCC) Expected: 01/21/2024 (Approximate), Expires: 01/20/2025NO[facility] HealthcareComment on above:Expected: 01/21/2024 (Approximate), Expires: 01/20/2025Start: 01-21-2024 End: 09-97-8552Dvzuvig encounter /04/2024 8:45 AM EST Office Visit [facility] [address] [address] Siddhartha Jones MD [address] [place] [address] [facility] FMComment on above:ArrivedStart: 38-74-0716Gnaghhqcb vaccinationInfluenza Vaccine (#1)[facility] HealthcareStart: 35-92-7505IGN, Provider: Glen He, Status: Pen, Time: 9:00 AMNPV, Provider: Glen He, Status: Pen, Time: 9:00 AMMG-Pulm [facility] Work Phone: start: 54-91-6679Uybpibbbu vaccinationInfluenza Vaccine (#1)[facility]: 34-56-4763Gheaqv Vaccines (1 of 2)Zoster Vaccines (1 of 2)[facility]: 1990 DTaP/Tdap/Td Vaccines (1 - Tdap)DTaP/Tdap/Td Vaccines (1 - Tdap)[facility]: 10-87-7068Cssevvqrx A Vaccines (1 of 2 - Risk 2- dose series)Hepatitis A Vaccines (1 of 2 - Risk 2-dose series)[facility]: 92-04-3876Jvdjiuwp mellitus screeningDiabetes ScreeningUnSt. Mary's Medical [facility]: 39-44-0837Vdqryyory C screening Hepatitis C ScreeningUnSt. Mary's Medical [facility]: 1976 Pneumococcal Vaccine: Pediatrics (0 to 5 Years) and At-Risk Patients (6 to 64 Years) (1 - PCV)Pneumococcal Vaccine: Pediatrics (0 to 5 Years) and At-Risk Patients (6 to 64 Years) (1 - PCV)[facility]: 34-14-1188LVQ Vaccines (1 of 1 - Standard series)MMR Vaccines (1 of 1 - Standard series)[facility]: 80-30-4443DTSVI-19 Vaccine (#1) COVID-19 Vaccine (#1)[facility]: 81-19-3982Pfjmzxiqx B Vaccines (1 of 3 - 3-dose series)Hepatitis B Vaccines (1 of 3 - 3-dose series)[facility]: 61-41-7384LMB screeningHIV ScreeningUnSt. Mary's Medical [facility]: 39-33-0039Odbxa panelLipid PanelUnSt. Mary's Medical Center[facility]: 38-79-4439Rmhlatdgs for malignant neoplasm of colonUnSt. Mary's Medical [facility]: 31-36-5393Mcsdecxpm for malignant neoplasm of lungLung Cancer Screening Shared Decision MakingNODoctors Hospital of SpringfieldStart: 80-45-2808Wvllsxz stimulating hormone measurementTSH Level [facility]: 71-79-5575Kysxtj Adult PhysicalYearly Adult PhysicalUnMetroHealth [facility] Immunizations Immunization DateImmunizationNotesCare OoqzbgbzJkomlimf48-07-0220Ezsoky COVID-19 Vac Bivalent 30 MCG/0.3ML Intramuscular SuspensionReferring Provider UnknownMG- [facility] Work Phone: [phone] 30 MCG/0.3ML Intramuscular SuspensionReferring Provider UnknownMG-[facility] Work Phone: [phone]) [phone]-VvsVQzlb COVID-19 Vacc 30 MCG/0.3ML Intramuscular SuspensionReferring Provider UnknownMG-[facility] Work Phone: [phone]-JddJKsqe COVID-19 Vacc 30 MCG/0.3ML Intramuscular SuspensionReferring Provider UnknownMG-[facility] Work Phone: [phone]-AgwAUdhc COVID-19 Vacc 30 MCG/0.3ML Intramuscular SuspensionReferring Provider UnknownMG-[facility] Work Phone: Payers DatePayer CategoryPayerPolicy ID2015Medicaid (Managed Care)[facility] [id number] 2..1.482147.3.57[id number] 2..1.128208.3.57[id number] 2..1.746135.3.57[id number] 2..1.296560.3.57[id number] 2..1.782404.3.57[id number] 2..1.412416.3.57[id number] 2..1.116171.3.57[id number] 2.16.840.1.639614.3.57[id number] 2.16.840.1.555574.3.57[id number] 2.16.840.1.730488.3.57[id number] 2.16840.1.122055.3.57[id number] 2.16840.1.648193.3.57[id number] 2.840.1.696619.3.57[id number] 2.0.1.411429.3.57[id number] 2.840.1.756423.3.57[id number] 2.0.1.253825.3.57[id number] 2.0.1.598532.3.57[id number] 2.0.1.691357.3.57[id number] 2.0.1.410201.3.57[id number] [employer] Social History DateTypeDetailFacilityTobacco smoking status NHISTobacco smoking consumption unknownThe [facility] Work Phone: Start: [phone] Assigned At BirthNot on file [facility] Work Phone: Start: 07-24-2023 End: 09-29-5822Bujwjp identityNot on fileNOAZ HealthcareStart: 08-68-5312Uvppdmq smoking status NHISEx-smokerNOAZ HealthcareStart: 04-19-1988 End: 30-74-3996Vovorrj of tobacco useCurrent smokerNOMS HealthcareStart: 04-19-1988 End: 11-68-3317Fgrqzqg of tobacco useCigarette SmokerOGDEN REGIONAL [facility] HealthcareStart: 06-22-2023 End: 18-46-3154Valcdetbfz smoked current (pack per day) - Lmfzzvyy8ISSR HealthcareStart: 76-49-3070Giedgxf use and exposureSmokeless tobacco non-user [facility] HealthcareDo you belong to any clubs or organizations such as jehovah's witness groups, unions, fraternal or athletic groups, or school groups?NoNOMS Healthcare Are you now , , , , never or living with a partner?DivorcedNOMS HealthcareHow often to you have a drink containing alcohol?NeverNOMS HealthcareHow many standard drinks containing alcohol do you have on a typical day?Patient does not drinkNOMS HealthcareHow hard is it for you to pay for the very basics like food, housing, medical care, and heatingHard NOMS HealthcareDo you feel stress - tense, restless, nervous, or anxious, or unable to sleep at night because yourmind is troubled all the time - these days [OSQ]To some extentNOMS Healthcare(I/We) worried whether (my/our) food would run out before (I/we) got money to buy more.Often trueNOMS HealthcareThe food that (I/we) bought just didn't last, and (I/we) didn't have money to get more. Sometimes trueNOMS Healthcare Clinical Notes 09-06-2022 to 09-15-2024 Note Date & DorcWwgqDcqabtkc55-43-3306 NoteUT Cardiology [facility] Subjective Alona Patino is a 54 y.o. year old male [...] pectoris, unstable (CMS/HCC) Atherosclerotic heart disease of [place] coronary artery without angina pectoris BPH associated with nocturia Dysfunction of left eustachian tube MDD (major depressive disorder), recurrent episode, moderate (CMS/HCC) Prediabetes Vitamin D deficiency Encounter for long-term current use of medication Gastroesophageal reflux disease without esophagitis Screening PSA (prostate specific antigen) Centrilobular emphysema (CMS/HCC) Cervical radiculopathy Chronic neck pain nursing home (current) use of inhaled steroids [place] of [...] meeting him. He used to see Dr. Haider Schofield in our office. He is a [...] mouth in the morning., Disp: , Rfl: Breztri Aerosphere 160-9-4.8 mcg/actuation HFA aerosol inhaler, Inhale [...] hours if needed., Disp: , Rfl: ezetimibe (Z (more content not included)...[facility] 08-26-2024 History of Present illness Narrative* Marcus Aldridge, PT - 08/26/2024 11:30 AM EDT Physical Therapy Treatment Visit Patient Name: Alona Patino Today's Date: 08/26/24 Encounter Diagnoses Name Primary? [...] 90 degrees of flexion. 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 Pain: 0/10 neck, Objective: [...] 2+/5, abduction 2+/5, ER 3-/5, IR 4-/5, radio equipment repairer right 90#, left 80# Joint: severe C4/C6 [...] to be instructed in home exercise program. Group Home Goals: To be met in 10 weeks [...] Please sign below. Date: documented in this encounterGolden Valley Memorial HospitalUqlyrqaucx74-21-7396 History of Present illness Narrative* Marcus Aldridge, PT - 08/13/2024 3:30 PM EDT Images from the original note were not included. Physical Therapy Treatment Visit Patient Name: Alona Patino Today's Date: 08/13/24 Encounter Diagnoses Name Primary? Left cervical radiculopathy Yes Muscle left arm weakness Visit number: 5 ( of 8 visits) Timed Code Treatment: 38 minutes Total Treatment Time: 38 minutes Time In: 1530 Time Out: 1608 History: Pt. Presents to PT with c/c [...] shoulder ROM to 90 degrees. Less neck pain. 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 Pt.Demonstrate large cervical spine HNP at C5 segment leading to severe left shoulder muscle weakness. Pt has less numbness and tingling in L UE, and less neck pain. Improved tolerance to exercises thisdate. Several verbal cues for correct tech with ther ex. Poor shoulder and scapula activation. Pt wants to continue therapy until follow up. Follow up with neuro August 18. Outcome Measure: in chart, (08/08/24): 15/50 Short Term Goal: To be met in 2 weeks Goal 1: Pt to be instructed in home exercise program. Product Safety Tester Goals: To be met in 10 weeks [...] Please sign below. Date: documented in this encounterGolden Valley Memorial HospitalAlewcikthc83-15-8138 History of Present illness Narrative* Marcus Aldridge, PT - 07/29/2024 3:00 PM EDT Physical Therapy Evaluation Visit Patient Name: Alona Patino Today's Date: 07/29/24 Encounter Diagnoses Name Primary? Left cervical radiculopathy Yes Muscle left arm weakness Visit number: 1 Timed Code Treatment Minutes: 25 minutes Total Treatment Time: 55 minutes Time In: 1500 Time Out: 1555 History: Pt. Presents to PT with c/c [...] to perform overhead activities. 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 right 90#, left 80# Joint: severe C4/C6 joint hypomobility Treatment: PT evaluation (30 minutes) Education: HEP education with demonstration, Educated on Eval Findings and POC Manual Therapy:(10 minutes) gentle SOR, cervical distraction Passive ROM, Joint mobilization, Soft Tissue Mobilization, Myofascial Release, Muscle Energy Technique, Neural Mobilization, Myofascial Cupping, Dry Needling, IASTM, and Scar mobilization Therapeutic Exercise: (16 minutes) exercises in grid Strength, Endurance, Flexibility, ROM, HEP, Neural Mobilization, Power, and Core Stability Therapeutic Activity: Exercises to improve dynamic activities, functional tasks, functional mobility to return to prior activity level Neuromuscular re-education: Balance Training, Muscle Facilitation, Dynamic Stability, Core Stabilization, and Blood Flow Restriction Training (BFRT) Modalities: Heat, Ice, Electrical Stimulation, Ultrasound, Cervical Mechanical Traction, Lumbar Mechanical Traction, Iontophoresis, and Fluidotherapy Assessment: Pt. Has participated in 1 PT session with start of POC on 07/29 for left cervical radiculopathy. Pt. 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 Weakness is affecting his quality of life. Not sure if PT treatment will help but will try PT for 4 session. If no progress recommend MRI of cervical spine and referral with neurosurgeon. Outcome Measure: in chart Short Term Goal: To be met in 2 weeks Goal 1: Pt to be instructed in home exercise program. Group Home Goals: To be met in 10 weeks [...] Please sign below. Date: documented in this [facility]05-05-2025 History of Present illness Narrative* Siddhartha Jones MD - 07/21/2024 9:30 AM EDTAssociated Problem(s): MDD (major depressive disorder), recurrent episode, moderate (CMS/HCC) Symptoms controlled with medication and continue. * Siddhartha Jones MD - 07/21/2024 9:30 AM EDTAssociated Problem(s): Generalized anxiety disorder (CMS/HCC) Symptoms controlled with medication and continue. * Siddhartha Jones MD - 07/21/2024 9:30 AM EDTAssociated Problem(s): Gastroesophageal reflux disease without esophagitis Symptoms controlled with medication and continue. * Siddhartha Jones MD - 07/21/2024 9:30 AM EDTAssociated Problem(s): COPD (chronic obstructive pulmonary disease) ([facility]) Breathing stable and continue inhalers. Follow up with pulmonology. * Siddhartha Jones MD - 07/21/2024 9:28 AM EDTAssociated Problem(s): Chronic neck pain Pain unchanged and follow with specialists. Use ultram PRN. * Siddhartha Jones MD - 07/21/2024 9:00 AM EDT Images from the original note were not included. Subjective Patient ID: Alona Patino is a 54 y.o. male who presents for Follow-up (6/m f/up/Shoulder/neck pain). Follow up depression, anxiety, COPD, and thyroid. Patient stable today. Mood controlled with medication. Not as down or sad and feels happier. Able to do more and interact better with others. Anxietystable. Not as stressed out or overwhelmed. Not as nervous or worry as much. Not as rosenthal or irritable. COPD stable with inhalers. Mild SOB with exertion. No cough or sputum. Following with pulmonology. GERD controlled with omeprazole. Denies epigastric pain or burning and not waking up with symptoms. C/o neck pain and following with ortho. Decreased ROM and not able to move left arm. MRI left shoulder with tendinosis but no tear. Concerned herniated cervical disc. Review of Systems Constitutional: Negative for fatigue. Respiratory: Negative for cough, shortness of breath and wheezing. Cardiovascular: Negative for chest pain and palpitations. Gastrointestinal: Negative for abdominal pain, diarrhea, nausea and vomiting. Genitourinary: Negative for dysuria. Objective Physical Exam Constitutional: General: He is not in acute distress. Appearance: Normal appearance. HENT: Head: Normocephalic. Right Ear: Tympanic membrane and ear canal normal. Left Ear: Tympanic membrane and ear canal normal. Eyes: Extraocular Movements: Extraocular movements intact. Pupils: Pupils are equal, round, and reactive to light. Cardiovascular: Rate and Rhythm: Normal rate and regular rhythm. Heart sounds: No murmur heard. No friction rub. No gallop. Pulmonary: Breath sounds: Normal breath sounds. No wheezing, rhonchi or rales. Abdominal: General: Bowel sounds are normal. There is no distension. Palpations: Abdomen is soft. Tenderness: There is no abdominal tenderness. There is no guarding or rebound. Musculoskeletal: Left lower leg: No edema. Neurological: Mental Status: He is alert. Assessment/Plan Problem List Items Addressed This Visit COPD (chronic obstructive pulmonary disease) (CMS/HCC) Breathing stable and continue inhalers. Follow up with pulmonology. Generalized anxiety disorder (CMS/HCC) Symptoms controlled with medication and continue. MDD (major depressive disorder), recurrent episode, moderate (CMS/HCC) - Primary Symptoms controlled with medication and continue. Gastroesophageal reflux disease without esophagitis Symptoms controlled with medication and continue. Chronic neck pain Pain unchanged and follow with specialists. Use ultram PRN. Relevant Medications traMADol (Ultram) 50 MG tablet documented in this encounterGolden Valley Memorial HospitalUgyyzakzaw44-55-3597 Telephone encounter Note* Telephone Encounter - MARYJANE BANERJEE - 06/30/2024 10:34 AM EDT Patient called requesting refill on tramadol, and askng for a steroid, for shoulder pain. clm [facility] HospitalQxbyzmwner52-58-5582 Miscellaneous Notes* Telephone Encounter - MARYJANE BANERJEE - 06/30/2024 10:34 AM EDT Patient called requesting refill on tramadol, and askng for a steroid, for shoulder pain. clm * Telephone Encounter - Elo Patino - 06/16/2024 2:39 PM EDT Patient would like a prescription for toradol he sees the surgeon next week but his shoulder and neck are bothering him . an documented in this encounterGolden Valley Memorial HospitalEbqeksjskf15-03-2085 Telephone encounter Note* Telephone Encounter - Elo Patino - 06/16/2024 2:39 PM EDT Patient would like a prescription for toradol he sees the surgeon next week but his shoulder and neck are bothering him . an [facility] Hos[id number] NoteCardiology Clinic Note HPI: Alona Patino is a 53 y.o. male With a [...] carvedilol palpitations have resolved. He sees Dr. Espino for COPD. Doing very well from cardiac [...] 81 mg by mouth in the morning. Cylancephere 160-9-4.8 mcg/actuation HFA aerosol inhaler Inhale 2 [...] Strict return precautions were provided. Patient verbalizes understan (more content not included)...[facility]11-04-2024 History of Present illness Narrative* Siddhartha Jones MD - 01/21/2024 9:41 AM ESTAssociated Problem(s): Non-occlusive coronary artery disease (CMS/HCC) No pain and follow with cardiology. * Siddhartha Jones MD - 01/21/2024 9:41 AM ESTAssociated Problem(s): MDD (major depressive disorder), recurrent episode, moderate (CMS/HCC) Symptoms controlled with medication and continue. * Siddhartha Jones MD - 01/21/2024 9:41 AM ESTAssociated Problem(s): Generalized anxiety disorder (CMS/HCC) Symptoms controlled with medication and continue. * Siddhartha Jones MD - 01/21/2024 9:40 AM ESTAssociated Problem(s): Gastroesophageal reflux disease without esophagitis Frequent symptoms and start omeprazole. * Siddhartha Jones MD - 01/21/2024 9:40 AM ESTAssociated Problem(s): COPD (chronic obstructive pulmonary disease) ([facility]/HCC) Breathing stable and continue inhalers. Follow up with pulmonology. * Siddhartha Jones MD - 01/21/2024 9:40 AM ESTAssociated Problem(s): Adult hypothyroidism ([facility]) No signs of low thyroid and continue medication. * Siddhartha Jones MD - 01/21/2024 8:45 AM EST Images from the original note were not included. Subjective Patient ID: Alona Patino is a 53 y.o. male who presents for Follow-up (6 m). Follow up anxiety, COPD, and thyroid. Patient improved today. Increased celexa last visit and depression improved. Not as down or sad and feels happier. Able to do more and interact better with others. Anxiety stable. Not as stressed out or overwhelmed. Not as nervous or worry as much. Not as moodyor irritable. No signs of low thyroid. Denies change in skin, hair, or nails. CAD stable and following with cardiology. No chest pain or tightness. COPD stable with inhalers. Mild SOB with exertion. No cough or sputum. Following with pulmonology. C/o GERD over the past few months. Epigastric pain and burning and waking up with symptoms. Severe symptoms after eating and worse with spicy foods. Symptoms when laying down and wake up from sleep. Review of Systems Constitutional: Negative for fatigue. Respiratory: Negative for cough, shortness of breath and wheezing. Cardiovascular: Negative for chest pain and palpitations. Gastrointestinal: Negative for abdominal pain, diarrhea, nausea and vomiting. Genitourinary: Negative for dysuria. Objective Physical Exam Constitutional: General: He is not in acute distress. Appearance: Normal appearance. HENT: Head: Normocephalic. Right Ear: Tympanic membrane and ear canal normal. Left Ear: Tympanic membrane and ear canal normal. Eyes: Extraocular Movements: Extraocular movements intact. Pupils: Pupils are equal, round, and reactive to light. Cardiovascular: Rate and Rhythm: Normal rate and regular rhythm. Heart sounds: No murmur heard. No friction rub. No gallop. Pulmonary: Breath sounds: Normal breath sounds. No wheezing, rhonchi or rales. Abdominal: General: Bowel sounds are normal. There is no distension. Palpations: Abdomen is soft. Tenderness: There is no abdominal tenderness. There is no guarding or rebound. Musculoskeletal: Left lower leg: No edema. Neurological: Mental Status: He is alert. Assessment/Plan Problem List Items Addressed This Visit COPD (chronic obstructive pulmonary disease) (CMS/HCC) Breathing stable and continue inhalers. Follow up with pulmonology. Dyslipidemia (CMS/HCC) Relevant Orders Lipid panel Generalized anxiety disorder (CMS/HCC) Symptoms controlled with medication and continue. Adult hypothyroidism (CMS/HCC) No signs of low thyroid and continue medication. Relevant Orders TSH T4, free Prediabetes Relevant Orders Hemoglobin A1c Non-occlusive coronary artery disease (CMS/HCC) No pain and follow with cardiology. MDD (major depressive disorder), recurrent episode, moderate (CMS/HCC) - Primary Symptoms controlled with medication and continue. Relevant Medications buPROPion XL (Wellbutrin XL) 300 MG 24 hr tablet Gastroesophageal reflux disease without esophagitis Frequent symptoms and start omeprazole. Relevant Medications omeprazole (PriLOSEC) [address] capsule Encounter for long-term current use of medication Relevant Orders Basic metabolic panel CBC and differential Hepatic function panel Screening PSA (prostate specific antigen) Relevant Orders PSA documented in this encounterGolden Valley Memorial [id number] NoteCardiology Clinic Note Chief Complaint: chest pain HPI: Alona Patino is a 53 y.o. male With a [...] Chest pain, COPD (chronic obstructive pulmonary disease) ([facility]), Hyperlipidemia, and Lung mass. Surgical History [...] myocardial bridging -Continue rosuvastat (more content not included)...[facility]06-21-2023 NotePatient Name: Alona Patino Procedure Date: 09/06/2022 11:36 AM Date of : 1970 Room: Bronchoscopy Room 1 Attending MD: Jorge Barron MD, [id number] Procedure: Bronchoscopy Indications: Left upper lobe nodule Providers: Jorge Barron MD (Doctor), Michelle Borden RN (Nurse), Corinne Franco, Polymer Chemist (Polymer Chemist), Steven Mariscal MD (Fellow) Referring MD: Arleth [...] by the physician, the nurse and the sewer head in the procedure room at 11:36 AM. [...] no secretions. Electromagnetic navigation bronchoscopy utilizing the Ter[employer] Radios system with iLogic upgrade was performed. The [...] The procedure was guide (more content not included)...PROVATION - UHEvaluation note* Diagnosis Solitary pulmonary nodule Nicotine dependence, cigarettes, uncomplicated Chronic obstructive pulmonary disease, unspecified (CMS/HCC) Gastro-esophageal reflux disease without esophagitis Pure hypercholesterolemia, unspecified Anxiety disorder, unspecified Depression, unspecified Hyperlipidemia, unspecified Other forms of dyspnea Hypothyroidism, unspecified Cannabis abuse, uncomplicated documented in this encounter [facility] Work Phone: Evaluation note* Diagnosis Dysfunction of left eustachian tube- Primary Generalized anxiety disorder (CMS/HCC) Generalized anxiety disorder MDD (major depressive disorder), recurrent episode, moderate (CMS/HCC)- Primary Generalized anxiety disorder (CMS/HCC) Generalized anxiety disorder BPH associated with nocturia Adult hypothyroidism (CMS/HCC) Unspecified hypothyroidism Non-occlusive coronary artery disease (CMS/HCC) Coronary atherosclerosis of unspecified type of vessel, [place] or graft Chronic obstructive pulmonary disease, unspecified COPD type (CMS/HCC) MDD (major depressive disorder), recurrent episode, moderate (CMS/HCC)- Primary Generalized anxiety disorder (CMS/HCC) Generalized anxiety disorder Chronic obstructive pulmonary disease, unspecified COPD type (CMS/HCC) Gastroesophageal reflux disease without esophagitis Esophageal reflux Adult hypothyroidism (CMS/HCC) Unspecified hypothyroidism Prediabetes Other abnormal glucose Dyslipidemia (CMS/HCC) Other and unspecified hyperlipidemia Encounter for long-term current use of medication Screening PSA (prostate specific antigen) Special screening for malignant neoplasm of prostate Non-occlusive coronary artery disease (CMS/HCC) Coronary atherosclerosis of unspecified type of vessel, [place] or graft documented in this encounter [facility] HealthcareEvaluation note* Diagnosis Dysfunction of left eustachian tube- Primary Generalized anxiety disorder (CMS/HCC) Generalized anxiety disorder MDD (major depressive disorder), recurrent episode, moderate (CMS/HCC)- Primary Generalized anxiety disorder (CMS/HCC) Generalized anxiety disorder BPH associated with nocturia Adult hypothyroidism (CMS/HCC) Unspecified hypothyroidism Non-occlusive coronary artery disease (CMS/HCC) Coronary atherosclerosis of unspecified type of vessel, [place] or graft Chronic obstructive pulmonary disease, unspecified COPD type (CMS/HCC) MDD (major depressive disorder), recurrent episode, moderate (CMS/HCC)- Primary Generalized anxiety disorder (CMS/HCC) Generalized anxiety disorder Chronic obstructive pulmonary disease, unspecified COPD type (CMS/HCC) Gastroesophageal reflux disease without esophagitis Esophageal reflux Adult hypothyroidism (CMS/HCC) Unspecified hypothyroidism Prediabetes Other abnormal glucose Dyslipidemia (CMS/HCC) Other and unspecified hyperlipidemia Encounter for long-term current use of medication Screening PSA (prostate specific antigen) Special screening for malignant neoplasm of prostate Non-occlusive coronary artery disease (CMS/HCC) Coronary atherosclerosis of unspecified type of vessel, [place] or graft Neck pain- Primary Cervicalgia documented in this encounter [facility] HealthcareEvaluation note* Diagnosis Dysfunction of left eustachian tube- Primary Generalized anxiety disorder (CMS/HCC) Generalized anxiety disorder MDD (major depressive disorder), recurrent episode, moderate (CMS/HCC)- Primary Generalized anxiety disorder (CMS/HCC) Generalized anxiety disorder BPH associated with nocturia Adult hypothyroidism (CMS/HCC) Unspecified hypothyroidism Non-occlusive coronary artery disease (CMS/HCC) Coronary atherosclerosis of unspecified type of vessel, [place] or graft Chronic obstructive pulmonary disease, unspecified COPD type (CMS/HCC) MDD (major depressive disorder), recurrent episode, moderate (CMS/HCC)- Primary Generalized anxiety disorder (CMS/HCC) Generalized anxiety disorder Chronic obstructive pulmonary disease, unspecified COPD type (CMS/HCC) Gastroesophageal reflux disease without esophagitis Esophageal reflux Adult hypothyroidism (CMS/HCC) Unspecified hypothyroidism Prediabetes Other abnormal glucose Dyslipidemia (CMS/HCC) Other and unspecified hyperlipidemia Encounter for long-term current use of medication Screening PSA (prostate specific antigen) Special screening for malignant neoplasm of prostate Non-occlusive coronary artery disease (CMS/HCC) Coronary atherosclerosis of unspecified type of vessel, [place] or graft Neck pain Cervicalgia documented in this encounter [facility] HealthcareEvaluation note* Diagnosis Dysfunction of left eustachian tube- Primary Generalized anxiety disorder (CMS/HCC) Generalized anxiety disorder MDD (major depressive disorder), recurrent episode, moderate (CMS/HCC)- Primary Generalized anxiety disorder (CMS/HCC) Generalized anxiety disorder BPH associated with nocturia Adult hypothyroidism (CMS/HCC) Unspecified hypothyroidism Non-occlusive coronary artery disease (CMS/HCC) Coronary atherosclerosis of unspecified type of vessel, [place] or graft Chronic obstructive pulmonary disease, unspecified COPD type (CMS/HCC) MDD (major depressive disorder), recurrent episode, moderate (CMS/HCC)- Primary Generalized anxiety disorder (CMS/HCC) Generalized anxiety disorder Chronic obstructive pulmonary disease, unspecified COPD type (CMS/HCC) Gastroesophageal reflux disease without esophagitis Esophageal reflux Adult hypothyroidism (CMS/HCC) Unspecified hypothyroidism Prediabetes Other abnormal glucose Dyslipidemia (CMS/HCC) Other and unspecified hyperlipidemia Encounter for long-term current use of medication Screening PSA (prostate specific antigen) Special screening for malignant neoplasm of prostate Non-occlusive coronary artery disease (CMS/HCC) Coronary atherosclerosis of unspecified type of vessel, [place] or graft MDD (major depressive disorder), recurrent episode, moderate (CMS/HCC)- Primary Generalized anxiety disorder (CMS/HCC) Generalized anxiety disorder Chronic obstructive pulmonary disease, unspecified COPD type (CMS/HCC) Gastroesophageal reflux disease without esophagitis Esophageal reflux Chronic neck pain Cervicalgia documented in this encounter [facility]* Diagnosis Dysfunction of left eustachian tube- Primary Generalized anxiety disorder (CMS/HCC) Generalized anxiety disorder MDD (major depressive disorder), recurrent episode, moderate (CMS/HCC)- Primary Generalized anxiety disorder (CMS/HCC) Generalized anxiety disorder BPH associated with nocturia Adult hypothyroidism (CMS/HCC) Unspecified hypothyroidism Non-occlusive coronary artery disease (CMS/HCC) Coronary atherosclerosis of unspecified type of vessel, [place] or graft Chronic obstructive pulmonary disease, unspecified COPD type (CMS/HCC) MDD (major depressive disorder), recurrent episode, moderate (CMS/HCC)- Primary Generalized anxiety disorder (CMS/HCC) Generalized anxiety disorder Chronic obstructive pulmonary disease, unspecified COPD type (CMS/HCC) Gastroesophageal reflux disease without esophagitis Esophageal reflux Adult hypothyroidism (CMS/HCC) Unspecified hypothyroidism Prediabetes Other abnormal glucose Dyslipidemia (CMS/HCC) Other and unspecified hyperlipidemia Encounter for long-term current use of medication Screening PSA (prostate specific antigen) Special screening for malignant neoplasm of prostate Non-occlusive coronary artery disease (CMS/HCC) Coronary atherosclerosis of unspecified type of vessel, [place] or graft MDD (major depressive disorder), recurrent episode, moderate (CMS/HCC)- Primary Generalized anxiety disorder (CMS/HCC) Generalized anxiety disorder Chronic obstructive pulmonary disease, unspecified COPD type (CMS/HCC) Gastroesophageal reflux disease without esophagitis Esophageal reflux Chronic neck pain Cervicalgia Left cervical radiculopathy- Primary Muscle left arm weakness Muscle weakness (generalized) documented in this encounter [facility] HealthcareEvaluation note* Diagnosis Dysfunction of left eustachian tube- Primary Generalized anxiety disorder (CMS/HCC) Generalized anxiety disorder MDD (major depressive disorder), recurrent episode, moderate (CMS/HCC)- Primary Generalized anxiety disorder (CMS/HCC) Generalized anxiety disorder BPH associated with nocturia Adult hypothyroidism (CMS/HCC) Unspecified hypothyroidism Non-occlusive coronary artery disease (CMS/HCC) Coronary atherosclerosis of unspecified type of vessel, [place] or graft Chronic obstructive pulmonary disease, unspecified COPD type (CMS/HCC) MDD (major depressive disorder), recurrent episode, moderate (CMS/HCC)- Primary Generalized anxiety disorder (CMS/HCC) Generalized anxiety disorder Chronic obstructive pulmonary disease, unspecified COPD type (CMS/HCC) Gastroesophageal reflux disease without esophagitis Esophageal reflux Adult hypothyroidism (CMS/HCC) Unspecified hypothyroidism Prediabetes Other abnormal glucose Dyslipidemia (CMS/HCC) Other and unspecified hyperlipidemia Encounter for long-term current use of medication Screening PSA (prostate specific antigen) Special screening for malignant neoplasm of prostate Non-occlusive coronary artery disease (CMS/HCC) Coronary atherosclerosis of unspecified type of vessel, [place] or graft MDD (major depressive disorder), recurrent episode, moderate (CMS/HCC)- Primary Generalized anxiety disorder (CMS/HCC) Generalized anxiety disorder Chronic obstructive pulmonary disease, unspecified COPD type (CMS/HCC) Gastroesophageal reflux disease without esophagitis Esophageal reflux Chronic neck pain Cervicalgia Left cervical radiculopathy- Primary Muscle left arm weakness Muscle weakness (generalized) documented in this encounter [facility] HealthcareEvaluation note* Diagnosis Dysfunction of left eustachian tube- Primary Generalized anxiety disorder (CMS/HCC) Generalized anxiety disorder MDD (major depressive disorder), recurrent episode, moderate (CMS/HCC)- Primary Generalized anxiety disorder (CMS/HCC) Generalized anxiety disorder BPH associated with nocturia Adult hypothyroidism (CMS/HCC) Unspecified hypothyroidism Non-occlusive coronary artery disease (CMS/HCC) Coronary atherosclerosis of unspecified type of vessel, [place] or graft Chronic obstructive pulmonary disease, unspecified COPD type (CMS/HCC) MDD (major depressive disorder), recurrent episode, moderate (CMS/HCC)- Primary Generalized anxiety disorder (CMS/HCC) Generalized anxiety disorder Chronic obstructive pulmonary disease, unspecified COPD type (CMS/HCC) Gastroesophageal reflux disease without esophagitis Esophageal reflux Adult hypothyroidism (CMS/HCC) Unspecified hypothyroidism Prediabetes Other abnormal glucose Dyslipidemia (CMS/HCC) Other and unspecified hyperlipidemia Encounter for long-term current use of medication Screening PSA (prostate specific antigen) Special screening for malignant neoplasm of prostate Non-occlusive coronary artery disease (CMS/HCC) Coronary atherosclerosis of unspecified type of vessel, [place] or graft MDD (major depressive disorder), recurrent episode, moderate (CMS/HCC)- Primary Generalized anxiety disorder (CMS/HCC) Generalized anxiety disorder Chronic obstructive pulmonary disease, unspecified COPD type (CMS/HCC) Gastroesophageal reflux disease without esophagitis Esophageal reflux Chronic neck pain Cervicalgia Left cervical radiculopathy- Primary Muscle left arm weakness Muscle weakness (generalized) documented in this encounter [facility] HealthcareEvaluation note* Diagnosis Dysfunction of left eustachian tube- Primary Generalized anxiety disorder (CMS/HCC) Generalized anxiety disorder MDD (major depressive disorder), recurrent episode, moderate (CMS/HCC)- Primary Generalized anxiety disorder (CMS/HCC) Generalized anxiety disorder BPH associated with nocturia Adult hypothyroidism (CMS/HCC) Unspecified hypothyroidism Non-occlusive coronary artery disease (CMS/HCC) Coronary atherosclerosis of unspecified type of vessel, [place] or graft Chronic obstructive pulmonary disease, unspecified COPD type (CMS/HCC) MDD (major depressive disorder), recurrent episode, moderate (CMS/HCC)- Primary Generalized anxiety disorder (CMS/HCC) Generalized anxiety disorder Chronic obstructive pulmonary disease, unspecified COPD type (CMS/HCC) Gastroesophageal reflux disease without esophagitis Esophageal reflux Adult hypothyroidism (CMS/HCC) Unspecified hypothyroidism Prediabetes Other abnormal glucose Dyslipidemia (CMS/HCC) Other and unspecified hyperlipidemia Encounter for long-term current use of medication Screening PSA (prostate specific antigen) Special screening for malignant neoplasm of prostate Non-occlusive coronary artery disease (CMS/HCC) Coronary atherosclerosis of unspecified type of vessel, [place] or graft MDD (major depressive disorder), recurrent episode, moderate (CMS/HCC)- Primary Generalized anxiety disorder (CMS/HCC) Generalized anxiety disorder Chronic obstructive pulmonary disease, unspecified COPD type (CMS/HCC) Gastroesophageal reflux disease without esophagitis Esophageal reflux Chronic neck pain Cervicalgia Left cervical radiculopathy- Primary Muscle left arm weakness Muscle weakness (generalized) documented in this encounter [facility] HealthcareEvaluation note* Diagnosis Dysfunction of left eustachian tube- Primary Generalized anxiety disorder (CMS/HCC) Generalized anxiety disorder MDD (major depressive disorder), recurrent episode, moderate (CMS/HCC)- Primary Generalized anxiety disorder (CMS/HCC) Generalized anxiety disorder BPH associated with nocturia Adult hypothyroidism (CMS/HCC) Unspecified hypothyroidism Non-occlusive coronary artery disease (CMS/HCC) Coronary atherosclerosis of unspecified type of vessel, [place] or graft Chronic obstructive pulmonary disease, unspecified COPD type (CMS/HCC) MDD (major depressive disorder), recurrent episode, moderate (CMS/HCC)- Primary Generalized anxiety disorder (CMS/HCC) Generalized anxiety disorder Chronic obstructive pulmonary disease, unspecified COPD type (CMS/HCC) Gastroesophageal reflux disease without esophagitis Esophageal reflux Adult hypothyroidism (CMS/HCC) Unspecified hypothyroidism Prediabetes Other abnormal glucose Dyslipidemia (CMS/HCC) Other and unspecified hyperlipidemia Encounter for long-term current use of medication Screening PSA (prostate specific antigen) Special screening for malignant neoplasm of prostate Non-occlusive coronary artery disease (CMS/HCC) Coronary atherosclerosis of unspecified type of vessel, [place] or graft MDD (major depressive disorder), recurrent episode, moderate (CMS/HCC)- Primary Generalized anxiety disorder (CMS/HCC) Generalized anxiety disorder Chronic obstructive pulmonary disease, unspecified COPD type (CMS/HCC) Gastroesophageal reflux disease without esophagitis Esophageal reflux Chronic neck pain Cervicalgia Left cervical radiculopathy- Primary Muscle left arm weakness Muscle weakness (generalized) documented in this encounter [facility] HealthcareReason for visit Narrative* Rehabilitation - Outpatient (Routine) - AuthorizedSpecialtyDiagnoses / ProceduresReferred By ContactReferred To ContactPhysical Therapy Diagnoses Radiculopathy, cervical region Procedures MO PHYSICAL THERAPY EVALUATION LOW COMPLEX 20 MINS MO OFFICE/OUTPATIENT NEW HIGH MDM 60 MINUTES Dot Quintana MD [address] [place] [address] [place] [address] Phone: tel: fax: [facility] [address] [place] [address] Phone: tel: fax: Referral IDStatusReasonStart DateExpiration DateVisits RequestedVisits [id number] [facility] HealthcareReason for visit Narrative* Rehabilitation - Outpatient (Routine) - AuthorizedSpecialtyDiagnoses / ProceduresReferred By ContactReferred To ContactPhysical Therapy Diagnoses Radiculopathy, cervical region Procedures MO PHYSICAL THERAPY EVALUATION LOW COMPLEX 20 MINS MO OFFICE/OUTPATIENT NEW HIGH MDM 60 MINUTES Dot Quintana MD [address] [place] [address] Phone: tel: fax: [facility] [address] [address] Phone: tel: fax: Referral IDStatusReasonStart DateExpiration DateVisits RequestedVisits [id number]/[id number] [facility] Summary Purpose Family History No Family History [...] AUTHOR 05/05/2021 [facility] DATE CREATED AUTHOR AUTHOR'S ORGANIZ ATION 10/22/2021 [facility] DATE CREATED AUTHOR AUTHOR'S ORGANIZ ATION 08/02/2022 [facility] DATE CREATED AUTHOR AUTHOR'S ORGANIZ ATION 08/29/2022 [facility] DATE CREATED AUTHOR AUTHOR'S ORGANIZ ATION 10/26/2022 [facility] DATE CREATED AUTHOR AUTHOR'S ORGANIZ ATION 08/28/2024 [facility] DATE CREATED AUTHOR AUTHOR'S ORGANIZ ATION 09/16/2024 [facility] Reason for Visit (unrecogniz ed section and content) ReasonCommentsOtherBronch EBUS [id number] mReasonComments Follow-up6/m f/upShoulder/neck pain Care Teams (unrecognized sec tion and content) Team MemberRelationshipSpecialtyStart DateEnd Date Siddhartha Jones MD [address] [place] [phone] [facility]/23Team MemberRelationshipSpecialtyStart DateEnd Date Siddhartha Jones MD [address] [place] [phone] PCP - Generalmily Medicine06/22/23Team MemberRelationshipSpecialtyStart DateEnd Date Siddhartha Jones MD [address] [place] [address] [facility] - [facility]06/22/23 Siddhartha Jones MD [address] [place] [address] [facility]12/18/23Team MemberRelationshipSpecialtyStart DateEnd Date Siddhartha Jones MD [address] [place] [address] [facility]06/22/23 Siddhartha Jones MD [address] [place] [address] [facility]12/18/23Team MemberRelationshipSpecialtyStart DateEnd Date Siddhartha Jones MD [address] [place] [address] [facility]06/22/23 Siddhartha Jones MD [address] [place] [address] [facility]12/18/23Te MemberRelationshipSpecialtyStart DateEnd Date Siddhartha Jones MD [address] [place] [address] [facility]06/22/23 Siddhartha Jones MD [address] [place] [address] [facility]12/18/23Te MemberRelationshipSpecialtyStart DateEnd Date Siddhartha Jones MD [address] [place] [address] [facility]06/22/23 Siddhartha Jones MD [address] [place] [address] [facility]12/18/23Te MemberRelationshipSpecialtyStart DateEnd Date Siddhartha Jones MD [address] [place] [address] [facility]06/22/23 Siddhartha Jones MD [address] [place] [address] [facility]12/18/23Team MemberRelationshipSpecialtyStart DateEnd Date Siddhartha Jones MD [address] [place] [address] [facility]06/22/23 Siddhartha Jones MD [address] [place] [address] [facility]12/18/23Team MemberRelationshipSpecialtyStart DateEnd Date Siddhartha Jones MD [address] [place] [address] [facility]06/22/23 Siddhartha Jones MD [address] [place] [address] [place] [address]Team MemberRelationshipSpecialtyStart DateEnd Date Siddhartha Jones MD [address] [place] [address] [facility]06/22/23 Siddhartha Jones MD [address] [place] [address] [facility]12/18/23Team MemberRelationshipSpecialtyStart DateEnd Date Siddhartha Jones MD [address] [place] [address] [facility]06/22/23 Siddhartha Jones MD [address] [place] [address] [facility]12/18/23Team MemberRelationshipSpecialtyStart DateEnd Date Siddhartha Jones MD [address] [place] [address] [facility]06/22/23 Siddhartha Jones MD [address] [place] [address] [facility]12/18/23Team MemberRelationshipSpecialtyStart DateEnd Date Siddhartha Jones MD [address] [place] [address] [facility]06/22/23 Siddhartha Jones MD [address] [place] [address] [facility]12/18/23Team MemberRelationshipSpecialtyStart DateEnd Date Siddhartha Jones MD [address] [place] [phone] PCP - [facility]06/22/23 Siddhartha Jones MD [address] [place] [address] [facility]12/18/23 FOR RECORDS PERTAINING TO PATIENTS WHO ARE [...] BE BASED ON THE PRIMARY CLINICAL RECORDS. [facility] [employer] [facility]. provides no warranty or guarantee of the accuracy or completeness of information in this document.
--- OUTSIDE RECORDS SUMMARY | 2025-01-09 11:37 | XMS_ITS | Encounter Summary ---
Author Organization [facility] Address [address] [facility]. [place] [phone] Phone Care Team Providers Care Machine Adjuster Leader Case Trim Name Role Phone Unavailable Primary Care Provider Unavailabl e Reason for Referral * Imaging (Routine) - Pending ReviewSpecialtyDiagnoses / ProceduresReferred By ContactReferred To ContactRadiology Diagnoses Lung nodule Procedures CT [facility] [place] [address] [place] [address] Phone: tel: fax: Referral IDStatusReasonStart DateExpiration DateVisits RequestedVisits [id number] Perform Procedure * Endoscopy (Routine) - Pending ReviewSpecialtyDiagnoses / ProceduresReferred By ContactReferred To ContactGastroenterology Diagnoses Lung nodule Procedures Bronchoscopy Tier 3; Navigational, w EBUS, [place] [address] [place] [address] Phone: tel: fax: Referral IDStatusReasonStart DateExpiration DateVisits RequestedVisits [id number] Encounter Details DateTypeDepartmentCare Team (Latest Contact Info)Bgpzgnidabz82/22/2025Orders Only [facility] [address] [facility] [address] [facility] [place] [address] [place] [address] [place] [address] Lung nodule (Primary Dx); Pre-op testing Social History Tobacco UseTypesPacks/DayYears UsedDateSmoking Tobacco: Never AssessedSex and Gender InformationValueDate RecordedSex Assigned at BirthNot on fileLegal Sex Male08/11/2022 2:37 PM EDTGender IdentityNot on fileSexual OrientationNot on filedocumented as of this encounter Progress Notes * Jorge Mace MD - 01/07/2025 10:01 AM EDT Bronchoscopy Scheduling Request Pre-bronchoscopy visit: Follow-up visit with Bronchoscopy group provider Please schedule procedure: Next available Post-bronchoscopy visit: Not necessary [facility]: [facility] Performing physician: Advanced diagnostic bronchoscopist Referring physician: Darshan Contreras DO, Indication: PIPER nodules, RUL infiltrate Sedation / Anesthesia: GA Procedure: Navigational bronchoscopy, Staging EBUS Time: Tier 3 Cytology on-site: Yes Fluorscopy: Yes Imaging needed: CT Jarad - same day as procedure Labs: CBC, BMP Meds: None Special Considerations: Send cultures Reviewed by: Jorge Mace MD 01/07/25 10:01 AM documented in this encounter Plan of Treatment NameTypePriorityAssociated DiagnosesOrder ScheduleBronchoscopy Tier 3; Navigational, w EBUS, w FluoroscopyEndoscopyRoutine Lung nodule Expected: 01/07/2025, Expires: 01/07/2026T chest wo IV contrast for JARAD bronc planningImagingRoutine Lung nodule 1 Occurrences starting 01/07/2025 until 01/07/2026asic Metabolic PanelLab Routine Lung nodule Pre-op testing 1 Occurrences starting 01/07/2025 until 01/07/2026BCLabRoutine Lung nodule Pre-op testing 1 Occurrences starting 01/07/2025 until 01/07/2026documented as of this encounter Visit Diagnoses Diagnosis Lung nodule- Primary Other diseases of lung, not elsewhere classified Pre-op testing Unspecified pre-operative examination documented in this encounter
[2025-01-14 17:09] LABS: Blastomyces Abs, Qn, DID Negative (Neg:<1:1)
== END 2025-01-09 11:32 | disposition home or self-care (01) ==
LOC: LAB 11:32
PROVIDERS: PCP Family Medicine; Visit Provider Internal Medicine
DX: J98.4 Other disorders of lung (principal)
CPT/HCPCS: 36415; 86480; 86606; 86612; 86698; 87305; 87385

== ENCOUNTER 2025-01-22 11:30 | Outpatient (OUT) | payer OTHER, SELFPAY ==
--- OUTSIDE RECORDS SUMMARY | 2025-01-21 05:02 | XMS_ITS | Continuity of Care Document ---
Author Organization [facility] Address [address] [place] [address] Phone Care Team Providers Care Scientific Linguist Name Role Phone [facility], Services Primary Care Provider Darshan Damico DO Attending Provider Siddhartha Huff MD Attending Provider Care Teams Patient Care Team Team Status: Active Member Role/Relationship Status Dates Services Family Health Primary Care Provider Active Visit Care Team Team Status: Active Member Role/Relationship Status Dates Services Family Health Primary Care Provider Active Start: January 09, 2025 Darshan OSORIO DOAttbeka ProviderActiveStart: January 09, 2025 Patient Care Team Team Status: Inactive Member Role/Relationship Status Dates Services Family Health Primary Care Provider Active Start: January 21, 2025 End: January 21, 2025Kaitlynn Valerio ProviderActiveStart: January 21, 2025 End: January 21, 2025 Chief Complaint and Reason for Visit Chief Complaint Admit Date Established Patient January 21, 2025 8 :49am Allergies, Adverse Reactions, Alerts Allergen Type Severity Reaction Last Updated Verified Status No Known Allergies Allergy Unknown January 21, 2025 9:11amYesActive Social History Smoking Status Status Start Date End Date Date of Observa tion Ex-smoker (finding) January 21, 2025 9:12am Observation Status Observation Response Date of Response Legal Sex Male (finding) Sex Assigned At BirthMaleFebruary 1970 Family History Relationship Condition Age at Onset Recorded Date/T roberto brother Malignant neoplasm Unknown Disorder of liverUnknown Problems Active Problems Problem Diagnosis/Recorded Date Onset Date Status C omments Generalized anxiety disorder January 19, 2025 9:59am Unk nown Active Dysfunction of left eustachian tubeJanuary 19, 2025 9:58amUnknownActive DyslipidemiaJanuary 19, 2025 9:58amUnknownActiveAnnual physical examNov2024 9:51amUnknownActiveAdult hypothyroidismJanuary 19, 2025 9:57am UnknownActiveMDD (major depressive disorder), recurrent episode, moderate January 19, 2025 9:59amUnknownActiveGastroesophageal reflux disease without esophagitisJanuary 19, 2025 9:59amUnknownActivePrediabetesJanuary 19, 2025 9:59amUnknownActiveChronic neck painJanuary 19, 2025 9:58amUnknownActiveCOPD (chronic obstructive pulmonary disease)December 15, 2020 9:37amUnknownActive Problem List clean-up per request of Phys. EHR CmteNon-occlusive coronary artery disease requiring drug therapyJanuary 19, 2025 9:59amUnknownActiveBPH associated with nocturiaJanuary 19, 2025 9:58amUnknownActiveVitamin D deficiencyJanuary 19, 2025 9:59amUnknownActive Medications Medication Status Dose Units Route Directions Qty Days Refills S tart Date Stop Date End Date Reason(s) Instructions Adherence Citalopram 20 mg tablet Active 20 MG PO As Directed 30 3 0 5 January 05, 2025 3:03pm Complies with drug therapyOmeprazole 40 mg capsule,delayed release(DR/EC)Active 96OFOCVcsbw72277Rqvhpej 2024 11:00pmComplies with drug therapyTamsulosin 0.4 mg capsuleActive0.4ZRQQZyfoc437Ggqitpt 2024 11:00pmComplies with drug therapyLovastatin 40 mg xvrgijSnfharqqxdlg16KQETTx DirectedSept2020 11:00pmNov2024 10:06amCitalopram 20 mg njlsqgXbndnbdtlxay01UAZLWf DirectedSeptbanner 2020 11:00pmOct[facility] 2024 3:03pmAlbuterol Sulfate 90 mcg/actuation HFA aerosol jcnnkdwYfzvdh5HJJMYQGXACCSMPSmgcgDmdvndtcr 28th, 2021 11:00pmComplies with drug therapyMometasone-Formoterol (Dulera) 100-5 mcg/actuation HFA aerosol namdrunCafdgqitceqz2ITMEWDHNTWCNESGvosnZrvrquxax 28th, 2021 11:00pmJanuary 19, 2025 10:07amTiotropium [place] (Spiriva Respimat) 1.25 mcg/actuation hdwcRlzdrczitolc9UQACRPZMAVJHESSdabnTbmrrorfu 28th, 2021 11:00pm January 19, 2025 10:07amCarvedilol 3.125 mg tabletActive3.125MGPOTwice daily January 19, 2025 12:00ammust administer with a meal/foodComplies with drug therapyBupropion Hcl 300 mg tablet extended release 24 zcWlpdsz530SOYNTeutv morningJanuary 19, 2025 12:00amComplies with drug therapy Zjebcqxnoc-Zgypapzi-Orozntetys (Breztri Aerosphere) 160-9-4.8 mcg/actuation HFA aerosol exladtkJtmifj1IQUXUFIRMVRWJPgcyc dailyJanuary 19, 2025 12:00amComplies with drug therapyMethocarbamol 750 mg pedinoJpvppc017IIMDPhco times daily as neededJanuary 19, 2025 12:00amComplies with drug therapyAlbuterol Sulfate (Ventolin Hfa) 90 mcg/actuation HFA aerosol hbfvijvYpdiak4EUEKPFQMYJPPILLkhzy 4 hours as neededJanuary 19, 2025 12:00amComplies with drug therapyLevothyroxine 112 mcg ltkbtfWnfeew258FABSPDxrbaYolnktie 3rd, 2025 12:00amComplies with drug therapy Immunizations Immunization Event Date Not Given Reason Dose Number Dental Equipment Technician Lot Number Reason(s) Given Vaccine Information Statement (VIS) Detail Administration Location COVID-19 mRNA [place] ([place]) June 14 COVID-19 mRNA [place] ([place])July 14, 2020 Relevant Diagnostic Tests and/or Laboratory Data Laboratory Results Test Collection Date/Time Result Date/Time Result Interpretation Reference Range Result Comment Performing Site Histoplasma Galactomannan Antigen January 09, 2025 10:50am January 09, 2025 10:50am Negative <0.2 ng/mLPerformed at: [address] [id number] Director: Olena Steel MD, Phone: [phone] fumigatus AntibodyOctober 2024 11:09amOctober , 2024 11:09amNegative Neg:<1:1Blastomyces dermatitidis AntibodyOctober 2024 11:09amOctober 2024 11:09amNegativeNeg:<1:1Performed at: [address] [id number] Director: Olena Steel MD, Phone: [phone] TestOctober 2024 11:09amOctober 2024 11:09am COMMENT.Test Ordered: [id number] Histoplasma Abs, Qn, DIDHistoplasma Abs, Qn, DID Negative BN Reference Range: Neg:<1:1Performed at: [address] [id number] Director: Olena Steel MD, Phone: [phone] at: [address] [id number] Director: Chilango Lim PhD, Phone: [phone] Test (QFT) IncubationOct2024 11:09amOctober 2024 11:09amSee comment. Incubation performed. Reference Range: .Aspergillus flavus AntibodyOct2024 11:09amOctober , 2024 11:09amNegativeNeg:<1:1TB Test (QFT) Gold Plus January 09, 2025 11:09amOctober 2024 11:09amNegativeNegativeNo response to M tuberculosis antigens detected.Infection with M tuberculosis is unlikely, but highriskindividuals should be considered for additional testing(ATS/IDSA/CDC Clinical Practice Guidelines, 2017). Thereference range is an Antigen minus Nil result of <0.35IU/mL.Chemiluminescence immunoassay methodologyPerformed at: [address] [id number] Director: Chilango Lim PhD, Phone: [phone] niger AntibodyOct2024 11:09amOctober 2024 11:09amNegativeNeg:<1:1TB Test (QFT) CriteriaOct2024 11:09amOctober , 2024 11:09amComment.QuantiFERON-TB Gold Plus is a qualitative indirect test forM tuberculosis infection (including disease) and isintended for use in conjunction with risk assessment,radiography, and other medical and diagnostic evaluations.The QuantiFERON-TB Gold Plus result is determined bysubtracting the Nil value from either TB antigen (Ag)value. The Mitogen tube serves as a control for the test.TB Test (QFT) Antigen 2024 11:09amOctober , 2024 11:09am0.05 [IU]/mL.TB Test (QFT) Antigen January 09, 2025 11:09amOctober 2024 11:09am0.05 [IU]/mL.TB Test (QFT) NilJanuary 09, 2025 11:09amOctober , 2024 11:09am0.05 [IU]/mL.TB Test (QFT) MitogenJanuary 09, 2025 11:09amOctober 2024 11:09am>10.00 [IU]/mL. Vital Signs Vital Reading Result Reference Range Collection Date/Time Height 67 [in_i] January 21, 2025 9:10amBody Georxehmqrs63.3 [degF]97.6-99.0Nov2024 9:10amHeart Rate73 /fju77-468KxvnxhjgJanuary 21, 2025 9:10amRespiratory rate18 /min 12-24January 21, 2025 9:10amOxygen saturation by Pulse %95-100 January 21, 2025 9:10amBP Qdylkikx845 mm[Hg]100-140Nov2024 9:10amBP Zejyxfopi23 mm[Hg]60-100Nov2024 9:10am Advance Directives Advance Directive Response Recorded Date/ Time Advance Directives No December 25, 2016 11:36am Insurance Providers Guarantor Drew Ji Naveen Address [address] [place] [id number] Info.Home Phone: Coverage Status Update:2025 Payer Group Member ID Coverage Type Subscriber Relationship to Subscriber Effective Date Expiration Date Medicaid Self [id number] S Nason Id: [id number] [address] [place] [id number] Home Phone: Email: [id number] Medicaid [id number] S Naveen Id: [id number] [address] [place] [id number] Home Phone: Email: [id number] Encounters Encounter Location(s) Arrival/Admit Date Discharge/Departure Date Discharge/Departure Disposition Provider(s) Non-patient / Non-visit -[facility] ctober 2024 12:09pm Rachid Cadena Physician/Provider Office Visit-[facility] Family [facility] 2024 8:49amNovember 2024 9:57amDischarged to home care or self care (routine discharge)Siddhartha Huff MD Plan of Treatment Future Tests Future scheduled test information is unavailable Pending Tests Test Name Ordered Date Scheduled Date Comprehensive Metabolic Panel January 21, 2025 9:54am Future Visits Future appointment information is unavailable Future Procedures Procedure Name Ordered Date Scheduled Date A1C with Estimated Average Glu January 21 9:54am Complete Blood Count Auto DiffNovember 2024 9:54amLipid PanelNovember 2024 9:54amPSA Screen (Yearly Only)January 21, 2025 9:54amFree T4 (Free Thyroxine)January 21, 2025 9:54amThyroid Stimulating HormoneNov2024 9:54am Future Medications Future medication information is unavailable Patient Instructions Patient instructions are unavailable
--- OUTSIDE RECORDS SUMMARY | 2025-01-21 10:00 | XMS_ITS | Encounter Summary ---
Author Organization [facility] Address [id number] [place] [address]. [place] [address] Phone Care Team Providers Care Senior Manufacturing Test Engineer Name Role Phone Generic Provider, No Assigned Pcp MD Primary Car e Provider Unavailable Encounter Details DateTypeDepartmentCare Team (Latest Contact Info)Wsrbtlctaij55/05/2025 10:00 AM ESTTelemedicine [facility] [address] [place] [address] 1st [address] [place] [phone] Arina Nguyen, SEXUAL ASSAULT RESPONSE COORDINATOR-[employer]OVELTY [employer]ER [id number] [place] [phone] Lung nodule (Primary Dx) Social History Tobacco UseTypesPacks/DayYears UsedDateSmoking Tobacco: Never AssessedSex and Gender InformationValueDate RecordedSex Assigned at BirthNot on fileLegal Sex Male08/11/2022 2:37 PM EDTGender IdentityNot on fileSexual OrientationNot on filedocumented as of this encounter Patient Instructions * Patient Instructions* Arina Nguyen APRN-BENJI - 01/21/2025 10:00 AM EST Below is a summary of our plan and instructions: - Plan to proceed with bronchoscopy on 01/26/2025 at [facility] ([address] [place] [id number]) ? CT chest before procedure at 9:15 AM at [facility], 2nd floor Radiology, [address] ? Bronchoscopy procedure check-in at 10:30 AM at the Bronchoscopy/Endoscopy [address] ([place]) Reminders: - Obtain labs (CBC and BMP) before procedure - Nothing by mouth after midnight the night before procedure Thank you for visit with the Pulmonary Clinic. Pulmonary Office: Bronchoscopy Scheduling: Tonia - / Allen - Radiology Scheduling: General Appointment Scheduling: Pulmonary Function Testing: documented in this encounter Progress Notes * KAVON Hernandes - 01/21/2025 10:00 AM EST Images from the original note were not included. [facility] Pulmonary Medicine Pre-Bronchoscopy Visit Note PATIENT INFORMATION Patient Name: Drew Hodge Date of : 1970 (54 y.o.) REASON FOR VISIT Pre-bronchoscopy evaluation Referring Provider: No ref. provider found HISTORY OF PRESENT ILLNESS Virtual or Telephone Consent: While technically available, the patient was unable or unwilling to consent to connect via audio/video telehealth technology; therefore, I performed this visit using a real-time audio only connectionbetween Drew Hodge & KAVON Hernandes. Verbal consent was requested and obtained from Drew Hodge on this date, 01/21/25 for a telehealthvisit and the patient's location was confirmed at the time of the visit. Drew Hodge is a 54 y.o. male with a past medical history of lung nodules, former nicotine dependence, emphysema, nonobstructive CAD, myocardial bridging, hyperlipidemia, hypothyroidism, GERD, depression, anxiety who presents via phone call to [facility] Pulmonary Medicine Clinic for a pre-bronchoscopy evaluation. Patient follows with Pulmonary/Dr. Contreras through [facility]. He has a history of a PIPER nodule in which he underwent biopsy of on 09/06/2022 with IP/Dr. Mace; findings were negative for malignancy or infection. A CT chest was repeated on 12/15/2024 which showed new RUL and PIPER infiltrates, with cavitation to the RUL area. Patient also with reports of fatigue, night sweats, decreased appetite, and unintentional 16 lb weight loss over past 1 year. He was referred back to IP for biopsy. He is now scheduled for bronchoscopy on 01/26/2025 for navigational bronchoscopy and staging EBUS. Notedthat sputum C&S and labs for fungi and TB were ordered given upper lobe location of lesion which were negative. On today's visit, the patient reports he is doing okay. He reports occasional shortness of breath on exertion which he attributes to his history of emphysema and states it has been stable lately. He also reports an occasional cough which is sometimes productive for clear/yellow phlegm and denies hemoptysis. He denies wheezing or chest pain. He denies recent fevers, chills, or night sweats. He does report having lost about 16 pounds over the past 1 year, decreased appetite, and feeling tired allthe time. PULMONARY HISTORY Previous Pulmonary Diagnoses & Treatments: Emphysema Follows with Pulmonary/Dr. Contreras through [facility]. Currently uses Breztri and PRN albuterol HFA and nebulized albuterol. Not on supplemental oxygen. Hospitalization History: Denies. MEDICAL & SURGICAL HISTORY Medical History[1] Surgical History[2] FAMILY HISTORY Family Pulmonary History: Denies. Family History[3] SOCIAL HISTORY Tobacco Use History: Quit about 2 years ago. Started at age [age] years old. Smoked about 1 PPD. Vaping History: Denies. Marijuana Use History: Smokes marijuana daily. Other Drug Use: Denies. Alcohol Use: Denies. 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 Social History Socioeconomic History Marital status: Unknown Spouse name: Not on file Number of children: Not on file Years of education: Not on file Highest education level: Not on file Occupational History Not on file Tobacco Use Smoking status: Not on file Smokeless tobacco: Not on file Substance and Sexual Activity Alcohol use: Not on file Drug use: Not on file Sexual activity: Not on file Other Topics Concern Not on file Social History Narrative Not on file Social Drivers of Health Financial Resource Strain: High Risk (07/24/2023) Received from [facility] Overall Financial Resource Strain (CARDIA) Difficulty of Paying Living Expenses: Hard Food Insecurity: Food Insecurity Present (07/24/2023) Received from [facility] Hunger Vital Sign Within the past 12 months, you worried that your food would run out before you got the money to buymore.: Often true Within the past 12 months, the food you bought just didn't last and you didn't have money to get more.: Sometimes true Transportation Needs: No Transportation Needs (07/24/2023) Received from [facility] PRAPARE - Transportation Lack of Transportation (Medical): No Lack of Transportation (Non-Medical): No Physical Activity: Sufficiently Active (07/24/2023) Received from [facility] Exercise Vital Sign On average, how many days per week do you engage in moderate to strenuous exercise (like a brisk walk)?: 7 days On average, how many minutes do you engage in exercise at this level?: 30 min Stress: Stress Concern Present (07/24/2023) Received from [facility] - Occupational Stress Questionnaire Feeling of Stress : To some extent Social Connections: Socially Isolated (07/24/2023) Received from [facility] Social Connection and Isolation Panel In a typical week, how many times do you talk on the phone with family, friends, or neighbors?: More than three times a week How often do you get together with friends or relatives?: Once a week How often do you attend alevism or jew services?: Never Do you belong to any clubs or organizations such as alevism groups, unions, fraternal or athletic groups, or school groups?: No How often do you attend meetings of the clubs or organizations you belong to?: Never Are you , , , , never , or living with a partner?: Intimate Partner Violence: Unknown (05/10/2023) Received from [facility] Safety [facility] Environment Fear of Current or Ex-Partner: Not on file Emotionally Abused: Not on file Physically Abused: Not on file Sexually Abused: Not on file Physically or Sexually Abused: Not on file Housing Stability: Low Risk (07/24/2023) Received from [facility] Housing Stability Vital Sign Unable to Pay for Housing in the Last Year: No Number of Places Lived in the Last Year: 1 Unstable Housing in the Last Year: No IMMUNIZATION HISTORY There is no immunization history on file for this patient. REVIEW OF SYSTEMS Review of Systems Constitutional: Positive for appetite change (decreased), fatigue and unexpected weight change (loss of 16 lb over past 1 year). Negative for chills, diaphoresis and fever. Respiratory: Positive for cough (occasionally productive for clear/yellow phlegm, denies hemoptysis) and shortness of breath (occasionally with activity, stable). Negative for wheezing. Cardiovascular: Negative for chest pain. CURRENT MEDICATIONS Current Medications[4] ALLERGIES RX Allergies[5] VITAL SIGNS & WEIGHTS Vital signs not taken (virtual visit) Previous Weights: Wt Readings from Last 3 Encounters: No data found for Wt PHYSICAL EXAM Limited (virtual visit) Physical Exam Constitutional: General: He is not in acute distress. Pulmonary: Effort: No respiratory distress. Neurological: Mental Status: He is alert and oriented to person, place, and time. DIAGNOSTIC DATA PULMONARY FUNCTION TESTS (PFTs) Spirometry: -Date: 10/31/2023 -Location: [facility] -FEV1/FVC: 60% -FEV1: 23% (0.84L) -FVC: 32% -Bronchodilator response: None PFT: -Date: 06/12/2022 -Location: [facility] -FEV1/FVC: 40% -FEV1: 37% -FVC: 72% -TPN80-19%: 15% -Bronchodilator response: None -RV: 177% -T% -DLCO: 61% -Flow-volume loop: Severe obstruction IMAGING RECENT LABS ALL CBC WITH AUTO DIFF Component Ref Range & Units 11 mo ago [facility]H WBC 4.0 - 11.0 10 3/uL 6.7 TB[facility] RBC 4.70 - 6.10 10 6/uL 4.65 Low [facility]H HGB 14.0 - 18.0 g/dL 14.8 TBH HCT 42.0 - 54.0 % 44.5 TBH MCV 80.0 - 94.0 fL 95.7 High TBH MCH 25.9 - 34.0 pg 31.8 TBH MCHC 29.9 - 35.2 g/dL 33.3 TBH RDW 11.0 - 15.0 % 12.7 TBH PLT 150 - 450 10 3/uL 234 TBH MPV 9.5 - 13.5 fL 8.2 Low NEUTROPHILS PERCENT AUTO 43.0 - 75.0 % 52.8 LYMPHOCYTES PERCENT AUTO 20.5 - 60.0 % 28.1 MONOCYTES PERCENT AUTO 1.7 - 12.0 % 6.2 TBH EO % 0.9 - 7.0 % 11.3 High BASOPHILS PERCENT AUTO 0.2 - 2.0 % 1.4 IMMATURE GRANULOCYTES PCT AUTO 0.0 - 0.5 % 0.2 NEUTROPHILS ABSOLUTE AUTO 1.4 - 6.5 10 3/uL 3.5 LYMPHOCYTES ABSOLUTE AUTO 1.2 - 3.8 10 3/uL 1.9 MONOCYTES ABSOLUTE AUTO 0.3 - 0.8 10 3/uL 0.4 TBH EO # 0.0 - 0.7 10 3/uL 0.8 High BASOPHILS ABSOLUTE AUTO 0.0 - 0.1 10 3/uL 0.1 IMMATURE GRANULOCYTES ABS AUTO 0.00 - 0.03 10 3/uL 0.01 Resulting Agency TB Specimen Collected: 02/21/24 12:34 Performed by: [facility] Alert Last Resulted: 02/21/24 12:40 Received From: [facility] Result Received: 01/07/25 09:24 ALL BASIC METABOLIC PANEL Component Ref Range & Units 11 mo ago SODIUM 136 - 145 mmol/L 139 POTASSIUM 3.5 - 5.1 mmol/L 4.2 CHLORIDE 98 - 107 mmol/L 103 CARBON DIOXIDE 21.0 - 32.0 mmol/L 31.3 ANION GAP 8.9 GLUCOSE 74 - 106 mg/dL 118 High BLOOD UREA NITROGEN 7.0 - 18.0 mg/dL 9.0 CREATININE 0.70 - 1.30 mg/dL 1.08 TBH EGFR-AF MAURITANIAN >=60 mL/min/1.73m 2 >60 TBH EGFR-NON AF MAURITANIAN >=60 mL/min/1.73m 2 >60 BUN CREATININE RATIO 8.3 CALCIUM 8.5 - 10.1 mg/dL 9.1 Resulting Agency TB Specimen Collected: 02/21/24 12:34 Performed by: [facility] Alert Last Resulted: 02/21/24 13:49 Received From: [facility] Result Received: 01/07/25 09:24 ASSESSMENT & PLAN Drew Hodge is a 54 y.o. male with a past medical history of lung nodules, former nicotine dependence, emphysema, nonobstructive CAD, myocardial bridging, hyperlipidemia, hypothyroidism, GERD, depression, anxiety who presents via phone call to [facility] Pulmonary Medicine Clinic for a pre-bronchoscpy evaluation. PIPER lung nodules RUL infiltrate Patient follows with Pulmonary/Dr. Contreras through [facility]. He has a history of a PIPER nodule in which he underwent biopsy of on 09/06/2022 with IP/Dr. Mace; findings were negative for malignancy or infection. A CT chest was repeated on 12/15/2024 which showed new RUL and PIPER infiltrates, with cavitation to the RUL area. Patient also with reports of fatigue, night sweats, decreased appetite, and unintentional 16 lb weight loss over past 1 year. He was referred back to IP for biopsy. He is now scheduled for bronchoscopy on 01/26/2025 for navigational bronchoscopy and staging EBUS. Notedthat sputum C&S and labs for fungi and TB were ordered given upper lobe location of lesion which were negative. Plan to proceed with bronchoscopy as scheduled on 01/26/2025. Obtain CT chest for navigational bronch planning prior to procedure. Obtain labs (CBC and BMP). Patient to be NPO after midnight the night before bronchoscopy. Medications reviewed - patient is not on anticoagulation, GLP-1 agonists, or SGLT-2 inhibitors. Virtual Visit Consent: A telephone visit (audio only) between the patient (located in [place]) and provider (located in [place]) wasutilized to provide this telehealth service. Prep Time: 20 minutes Phone Time: 22 minutes Total Time Spent: 42 minutes I explained the bronchoscopy procedure to the patient. We discussed that the bronchoscopy will be performed by a member of the Interventional Pulmonary Team, depending on scheduling and provider availability. We also discussed that the IP providers function as a team and not infrequently may have to fill in for one another if there are emergent issues that need attention at the same time. The patient expressed understanding and agreed to proceed. All questions were answered. Arina Nguyen APRN-BENJI 01/21/2025 Thank you for visit with the Pulmonary Clinic. Pulmonary Office: Bronchoscopy Scheduling: Tonia - / [facility] - Radiology Scheduling: General Appointment Scheduling: Pulmonary Function Testing: [1] No past medical history on file. [2] No past surgical history on file. [3] No family history on file. [4] No current outpatient medications on file. No current facility-administered medications for this visit. [5] Not on File documented in this encounter Plan of Treatment DateTypeDepartmentCare Team (Latest Contact Info)Pckatdpcexd85/10/2025 9:30 AM ESTAppointment [facility] [address] [place] [address] 01/26/2025 11:30 AM ESTAppointment [facility] [address] [place] [address] [place] [address] [place] [address] documented as of this encounter Visit Diagnoses Diagnosis Lung nodule- Primary Other diseases of lung, not elsewhere classified documented in this encounter Care Teams Team MemberRelationshipSpecialtyStart DateEnd Date Generic Provider, No Assigned [place], [place] [address] PCP - GeneralGeneral Ajbnaulk06/3/25documented as of this encounter
--- OUTSIDE RECORDS SUMMARY | 2025-01-22 11:34 | XMS_ITS | Clinical Summary ---
Author Organization [facility] Address [address] [place] [address] Phone Care Team Providers Care Catalyst Plant Supervisor Name Role Phone Generic Provider, No Assigned Pcp MD Primary Car e Provider Unavailable Medications MedicationSigDispense QuantityRefillsLast FilledStart DateEnd DateStatus albuterol 90 mcg/actuation inhaler Inhale 2 puffs every 4 hours if needed./ctive albuterol 2.5 mg /3 mL (0.083 %) nebulizer solution Take 3 mL (2.5 mg) by nebulization every 4 hours if needed for wheezing or shortness of breath.Active aspirin 81 mg EC tablet Take 1 tablet (81 mg) by mouth once daily.Active Breztri Aerosphere 160-9-4.8 mcg/actuation HFA aerosol inhaler Inhale 2 puffs 2 times a day.Active buPROPion XL (Wellbutrin XL) 300 mg 24 hr tablet Take 1 tablet (300 mg) by mouth once daily.01/21/2024ctive carvedilol (Coreg) 3.125 mg tablet Take 1 tablet (3.125 mg) by mouth 2 times a day.Active citalopram (CeleXA) 40 mg tablet Take 1 tablet (40 mg) by mouth once daily.5Active ezetimibe (Zetia) 10 mg tablet Take 1 tablet (10 mg) by mouth once daily in the morning. Take before meals. Active fluticasone (Flonase) 50 mcg/actuation nasal spray Administer 2 sprays into each nostril once daily.Active Mucus Relief ER 600 mg 12 hr tablet Take 2 tablets (1,200 mg) by mouth every 12 hours.5Active levothyroxine (Synthroid, Levoxyl) 112 mcg tablet Take 1 tablet (112 mcg) by mouth once daily.Active methocarbamol (Robaxin) 750 mg tablet Take 1 tablet (750 mg) by mouth 4 times a day as needed.4Active omeprazole (PriLOSEC) [address] capsule Take 1 capsule (40 mg) by mouth once daily.Active rosuvastatin (Crestor) 20 mg tablet Take 1 tablet (20 mg) by mouth once daily at bedtime.Active tamsulosin (Flomax) 0.4 mg 24 hr capsule Take 1 capsule (0.4 mg) by mouth once daily.Active traMADol (Ultram) 50 mg tablet Take 1 tablet (50 mg) by mouth every 6 hours if needed.5Active Encounters DateTypeDepartmentCare KqixUczrijzpjhg32/05/2025 10:00 AM ESTTelemedicine [facility] [address] [place] [address] Arina Nguyen, CREDIT RATING INSPECTOR-MENTAL HEALTH AIDES TEACHER Lung nodule (Primary Dx)01/08/2025Orders Only [facility] [address] [place] [address] Provider, MD Gabriella 01/07/2025Orders Only [facility] [address] [facility] [address] [place] [address] Jorge Mace MD Lung nodule (Primary Dx); Pre-op testingfrom Last 3 Months Social History Tobacco UseTypesPacks/DayYears UsedDateSmoking Tobacco: Never AssessedSex and Gender InformationValueDate RecordedSex Assigned at BirthNot on fileLegal Sex Male08/11/2022 2:37 PM EDTGender IdentityNot on fileSexual OrientationNot on file Last Filed Vital Signs Vital SignReadingTime TakenCommentsBlood Pressure--Pulse--Temperature-- Respiratory Rate--Oxygen Saturation--Inhaled Oxygen Concentration--Erljdm01 kg (176 lb 5.9 oz)09/06/2022 10:51 AM JYTLpemqx763.1 cm (5' 6.97 )09/06/2022 10:51 AM EDTBody Mass Index27.65009/06/2022 10:51 AM EDT Plan of Treatment DateTypeDepartmentCare Team (Latest Contact Info)Lflnrxhiavz01/10/2025 9:30 AM ESTAppointment [facility] [address] [place] [address] 01/26/2025 11:30 AM ESTAppointment [facility] [address] [place] [address] [place] [address] [place] [address] Health MaintenanceDue DateLast DoneCommentsCT Ivrfdiufgouk97/02/1969Colonoscopy 1968Colorectal Cancer Egomxvniy09/02/1969FIT-DNA (Cologuard)1968FIT 1968HIV Bngcpcoih38/02/1969Lipid Panel1968 8750Vpcitsxpewdft49/02/1969TSH Level1968Yearly Adult Khmdiazu36/02/1969MMR Vaccines (1 of 1 - Standard series)1969Diabetes Cgwcnzlcv96/02/1987Hepatitis C Vvcnymmlt67/02/1987 Hepatitis B Vaccines (1 of 3 - 19+ 3-dose series)1987Pneumococcal Vaccine (1 of 2 - PCV)1987DTaP/Tdap/Td Vaccines (1 - Tdap)1990PSA Prostate Cancer Taeexpwwy63/02/2019Zoster Vaccines (1 of 2)2018Influenza Vaccine (#1)5COVID-19 Vaccine (3 - season)511/01/2022, 08/09/2021HIB VaccinesAged OutNo longer eligible based on patient's age to complete this topicHPV VaccinesAged OutNo longer eligible based on patient's age to complete this topicHepatitis A VaccinesAged OutNo longer eligible based on patient's age to complete this topicIPV VaccinesAged OutNo longer eligible based on patient's age to complete this topicMeningococcal VaccineAged OutNo longer eligible based on patient's age to complete this topicRotavirus VaccinesAged Out No longer eligible based on patient's age to complete this topic Procedures Procedure NamePriorityDate/TimeAssociated DiagnosisCommentsCT - ONBASE SCAN Qksavcm9201/08/2025 4:50 AM EDTCT - ONBASE BORZBbwjtcr69/23/2025 4:36 AM EDTPET - ONBASE GVGUFxkpzdn18/23/2025 4:32 AM EDTfrom Last 3 Months Results * CT - OnBase Scan (01/08/2025 4:50 AM EDT) Only the most recent of2 resultswithin the time period is included. Anatomical RegionLateralityModalityComputed Tomography Narrative Authorizing ProviderResult TypeResult StatusHistorical Provider MDIMG CT PROCEDURESFinal Result * PET - OnBase Scan (01/08/2025 4:32 AM EDT)Anatomical RegionLateralityModality Nuclear Medicine Narrative Authorizing ProviderResult TypeResult StatusHistorical Provider MDIMG NM PROCEDURESFinal Result from Last 3 Months Insurance Care Teams Team MemberRelationshipSpecialtyStart DateEnd Date Generic Provider, No Assigned Pcp, [place] [address] PCP - GeneralGeneral Yrnsnabi26/3/25
--- OUTSIDE RECORDS SUMMARY | 2025-01-22 11:34 | XMS_ITS | Encounter Summary ---
Author Organization [facility] Address [address] [place] [address] Care Team Providers Care Arc Furnace Operator Name Role Phone Siddhartha Huff MD Primary Care Provider [phone] Siddhartha Huff MD Primary Care Provider [phone] Siddhartha Huff MD Unavailable Encounter Details DateTypeDepartmentCare Team (Latest Contact Info)Nhjzzxnbpgc00/18/2024linisync Result Encounter [facility] External Department Unsolicited Provider, Generic External Data Social History Tobacco UseTypesPacks/DayYears UsedDateSmoking Tobacco: Never AssessedSocial Connection and Isolation PanelAnswerDate RecordedIn a typical week, how many times do you talk on the phone with family, friends, or neighbors?More than three times a week07/24/2023How often do you get together with friends or relatives?Once a week07/24/2023How often do you attend jehovah's witness or mandaen services?Never07/24/2023o you belong to any clubs or organizations such as jehovah's witness groups, unions, fraternal or athletic groups, or school groups?No 07/24/2023How often do you attend meetings of the clubs or organizations you belong to?Never07/24/2023re you , , , , never , or living with a partner?Pjltkpqj56/07/2024UDIT-CAnswerDate Recorded Q1: How often do you have [...] basics like food, housing, medical care, and heating?Hard07/24/2023[facility] [place] [facility] Occup[facility] - Occupational Stress QuestionnaireAnswerDate RecordedDo you feel stress - tense, restless, nervous, or anxious, or unable to sleep at night because your mind is troubled all the time - these days?To some ycskqz6707/24/2023Exercise Vital SignAnswerDate RecordedOn average, how many days [...] steady place to sleep or slept in elchoelter (including now)?No 07/24/2023Sex and Gender InformationValueDate RecordedSex Assigned at BirthNot on fileLegal DpyKpcl40/10/2023 9:37 AM ESTGender IdentityNot on fileSexual OrientationNot on filedocumented as of this encounter Functional Status * AUDIT-C ScoreAnswerDate of KffqwqrbquNhowtj019/07/2024 8:49 PM EDTMychart, Generic * Q1: How often do you have a drink containing alcohol?AnswerDate of Assessment IhdyzwUswom00/07/2024 8:49 PM EDTMychrossana, Generic * Q2: How many drinks containing alcohol do you have on a typical day when you are drinking?AnswerDate of AssessmentAuthorPatient does not drink07/24/2023 8:49 PM EDTMychart, Generic * Q3: How often do you have six or more drinks on one occasion?AnswerDate of VmoqmfkmwzJwqynkWphxa21/07/2024 8:49 PM EDMacho, Generic documented as of this encounter Plan of Treatment Not on file documented as of this encounter Procedures Procedure NamePriorityDate/TimeAssociated DiagnosisCommentsCT CHEST WO CON 06/04/2023 3:27 PM EDT documented in this encounter Results * CT CHEST WO CON (06/04/2023 3:27 PM EDT)Anatomical RegionLateralityModality OtherSpecimen (Source)Anatomical Location / LateralityCollection Method / VolumeCollection TimeReceived Time06/04/2023 3:27 PM EDT Narrative 06/04/2023 3:29 PM EDT [facility] ?[address] ? [place] [address] ? CT Scan Report ? Signed ? Patient: ALONA PATINO ?MR#: [id number] ?? : 1970 ?Acct:[id number] ?? Age/Sex: 53 / M ?ADM Date: 06/04/23 ?? Loc: CT ? Attending Dr: Darshan Espino D.O. ? Ordering Physician: Darshan Espino D.O. ?? Date of Service: 06/04/23 ?? Procedure(s): CT chest wo con ?? Accession Number(s): [id number] ? cc: Siddhartha Huff M.D. ? [facility] ? [address] ? [place] [address] ? Patient Name: ?? ALONA PATINO ? MRN: [id number] ? date: 1970 ?Sex: M ?? Assigned Patient Location: CT ?? Current Patient Location: CT ?? Accession/Order Number: [id number] ?? Exam Date: 06/04/2023 ??12:55 ?Report Date: 06/04/2023 ??15:27 ? At the request of: ?? DARSHAN ??SAMSA ? Procedure: ??CT chest wo con ? EXAMINATION: CT chest wo con ? HISTORY: Mass Of Upper Lobe Of Left Lung R91.8 ? COMPARISON: No relevant comparison available. ? TECHNIQUE: Multi-planar CT images were created with IV contrast. Axial, ?? Coronal, and Sagittal images. Dose reduction techniques were achieved by using ? automated exposure control and/or adjustment of mA and/or kV according to ?? patient size and/or use of iterative reconstruction technique. ? FINDINGS: ?? LUNGS: Moderate diffuse centrilobular and paraseptal emphysema with an upper ?? lobe predominance. Scattered areas of bronchiectasis and subcentimeter ?? density. ?? Irregular mildly spiculated nodule identified in the left upper lobe measuring ? 2.5 x 1.1 cm in axial image #29, stable from the prior exam. No new pulmonary ?? nodule or mass. ?? PLEURA: No mass, effusion, or pneumothorax. ?? VASCULATURE: No abnormality. ?? WILMAR: No mass or adenopathy. ?? MEDIASTINUM: No mass or adenopathy. ?? CARDIAC: No enlargement, pericardial thickening, or significant calcification. ?? AORTA: No aneurysm or dissection. ?? CHEST WALL: No mass or axillary adenopathy. ?? BONES: No bone lesion or fracture. ?? LIMITED ABDOMEN: No suspicious findings. Limited images of the upper abdomen. ?? OTHER: Negative. ? CT/CT chest wo con ?? IMPRESSION: ? Stable emphysema ? Stable scattered pulmonary nodules with the largest solid nodule in the left ?? upper lobe measuring 2.5 x 1.1 cm ? Electronically authenticated by: JOHN ??WEST ?? Date: 06/04/2023 ??15:27 ? Dictated By: ?John Arboleda M.D. ? Signed By: ?06/04/23 1529 ? DD/ 1527 ? TD/TT: ? Rn Case Management: Procedure Note Radiology, Radiologist, - 06/04/2023 [place] [address] CT Scan Report Signed Patient: ALONA PATINO [facility]#: [id number] : 1970Acct:[id number] Age/Sex: 53 / MADM Date: 06/04/23 Loc: CT Attending Dr: Darshan Espino D.O. Ordering Physician: Darshan Espino D.O. Date of Service: 06/04/23 Procedure(s): CT chest wo con Accession Number(s): [id number] cc: Siddhartha Huff M.D. [place] [address] Patient Name: ALONA PATINO MRN: [id number] date: 1970 Sex: M Assigned Patient Location: CT Current Patient Location: CT Accession/Order Number: [id number] Exam Date: 06/04/2023 12:55 Report Date: 06/04/2023 [...] M.D. Signed By:06/04/23 1529 DD/ 1527 TD/TT: Rn Case Management: Authorizing ProviderResult TypeResult StatusGeneric External Data Provider CLINISYNC IMAGINGFinal Result documented in this encounter Visit Diagnoses Not on filedocumented in this encounter Care Teams Team MemberRelationshipSpecialtyStart DateEnd Date Siddhartha Huff MD PCP - [facility] Siddhartha Huff MD PCP - [facility]06/22/23 Siddhartha Huff MD [address] [place] [address] PCP - [facility]12/18/23documented as of this encounter
--- OUTSIDE RECORDS SUMMARY | 2025-01-22 11:34 | XMS_ITS | Encounter Summary ---
Author Organization [facility] Address [address] [place] [address] Care Team Providers Care Wet Pour Supervisor Name Role Phone Siddhartha Huff MD Primary Care Provider [phone] Siddhartha Huff MD Primary Care Provider [phone] Siddhartha Huff MD Unavailable Encounter Details DateTypeDepartmentCare Team (Latest Contact Info)Urgjcyzause19/15/2023Clinisync Result Encounter [facility] External Department Unsolicited Provider, Generic External Data Social History Tobacco UseTypesPacks/DayYears UsedDateSmoking Tobacco: Never AssessedSocial Connection and Isolation PanelAnswerDate RecordedIn a typical week, how many times do you talk on the phone with family, friends, or neighbors?More than three times a week07/24/2023How often do you get together with friends or relatives?Once a week07/24/2023How often do you attend yazidi or christian services?Never07/24/2023o you belong to any clubs or organizations such as yazidi groups, unions, fraternal or athletic groups, or school groups?No 07/24/2023How often do you attend meetings of the clubs or organizations you belong to?Never07/24/2023re you , , , , never , or living with a partner?Exfmvxld31/07/2024UDIT-CAnswerDate Recorded Q1: How often do you have [...] basics like food, housing, medical care, and heating?Hard07/24/2023[facility] [place] of Occupational Health - Occupational Stress QuestionnaireAnswerDate RecordedDo you feel stress - tense, restless, nervous, or anxious, or unable to sleep at night because your mind is troubled all the time - these days?To some dvdigk0807/24/2023Exercise Vital SignAnswerDate RecordedOn average, how many days [...] steady place to sleep or slept in venturaelter (including now)?No 07/24/2023Sex and Gender InformationValueDate RecordedSex Assigned at BirthNot on fileLegal BfmSvav29/10/2023 9:37 AM ESTGender IdentityNot on fileSexual OrientationNot on filedocumented as of this encounter Functional Status * AUDIT-C ScoreAnswerDate of TbtiohdszlMbwqej105/07/2024 8:49 PM EDMacho Generic * Q1: How often do you have a drink containing alcohol?AnswerDate of Assessment QimrxjBxxbu84/07/2024 8:49 PM EDMacho Generic * Q2: How many drinks containing alcohol do you have on a typical day when you are drinking?AnswerDate of AssessmentAuthorPatient does not drink07/24/2023 8:49 PM Betito Generic * Q3: How often do you have six or more drinks on one occasion?AnswerDate of DdwajfrxanDpqvpjCnust79/07/2024 8:49 PM Betito Generic documented as of this encounter Plan of Treatment Not on file documented as of this encounter Procedures Procedure NamePriorityDate/TimeAssociated DiagnosisCommentsCT CHEST W CONTRAST 03/02/2023 1:21 PM EST documented in this encounter Results * CT CHEST W CONTRAST (03/02/2023 1:21 PM EST)Anatomical RegionLaterality ModalityOtherSpecimen (Source)Anatomical Location / LateralityCollection Method / VolumeCollection TimeReceived Time03/02/2023 1:21 PM EST Narrative 03/02/2023 1:24 PM EST [facility] ?[address] ? [place] [address] ? CT Scan Report ? Signed ? Patient: ALONA PATINO ?MR#: [id number] ?? : 1970 ?Acct:[id number] ?? Age/Sex: 52 / M ?ADM Date: 03/01/23 ?? Loc: CT ? Attending Dr: Darshan Espino D.O. ? Ordering Physician: Darshan Espino D.O. ?? Date of Service: 03/01/23 ?? Procedure(s): CT chest w con ?? Accession Number(s): [id number] ? cc: Siddhartha Huff M.D. ? [facility] ? [address] ? [place] [address] ? Patient Name: ?? ALONA PATINO ? MRN: [id number] ? date: 1970 ?Sex: M ?? Assigned Patient Location: CT ?? Current Patient Location: ? Accession/Order Number: [id number] ?? Exam Date: 03/01/2023 ??09:35 ?Report Date: 03/02/2023 ??13:21 ? At the request of: ?? DARSHAN ??SRINIVAS ? Procedure: ??CT chest w con ? EXAM: CT chest w con ? HISTORY: Mass Of Upper Lobe Left Lung R91.9, Enlarged Lymph Nodes ? COMPARISON: 12/06/2022, 09/06/2022, 07/28/2022, 06/21/2022 ? TECHNIQUE: CT of the chest with intravenous contrast. Dose reduction ?? techniques ?? performed. ? FINDINGS: ? Attacher: No pertinent findings, which are not already discussed below. ? Tubes, devices, and lines: None. ? Lower neck: Unremarkable. ? Lungs/Pleura/Airways: Interval resolution of multifocal opacities with ?? residual ?? bronchiectatic change. No new focal opacities. Stable biapical upper lobe ?? irregular nodules, measuring 2.2 cm on left (metabolically active) and 1.2 cm ?? and the right. Sub-6 cm solid pulmonary nodules for instance within the left ?? central upper lobe (59) and lateral aspect of the right lower lobe (67) are ?? without significant interval change. Paraseptal emphysema. No pleural ?? effusion.No pneumothorax. Clear central airways. ? Mediastinum: Unremarkable cardiac morphology and pericardium. No coronary ?? artery calcifications. No enlarged thoracic lymph nodes. ? Vasculature: Normal in course and caliber. ? Upper abdomen: Unremarkable. ? Bones: No acute fracture. No suspicious osseous lesion. ? Soft tissues: Normal. ? CT/CT chest w con ?? IMPRESSION: ? 1. Interval resolution of multifocal opacities with residual bronchiectatic ?? change. No new focal opacities ? 2. Stable pulmonary nodules to include the suspicious left apical ?? hypermetabolic 2.2 cm nodule. Unclear what appropriate follow-up (3-6 months ?? would be reasonable) might be as this was previously recommended for biopsy. ? Electronically authenticated by: PASTOR ??BELKIS ?? Date: 03/02/2023 ??13:21 ? Dictated By: ?Pastor Tamayo ? Signed By: ?03/02/23 1324 ? DD/ 1321 ? TD/TT: ? Marine Painter: Procedure Note Radiology, Radiologist, MD - 12/15/2023 [place] [address] CT Scan Report Signed Patient: ALONA PATINO [facility]#: [id number] : 1970Acct:[id number] Age/Sex: 52 / MADM Date: 03/01/23 Loc: CT Attending Dr: Darshan Espino D.O. Ordering Physician: Darshan Espino D.O. Date of Service: 03/01/23 Procedure(s): CT chest w con Accession Number(s): [id number] cc: Siddhartha Huff M.D. The [place] [address] Patient Name: ALONA PATINO MRN: [id number] date: 1970 Sex: M Assigned Patient Location: CT Current Patient Location: Accession/Order Number: [id number] Exam Date: 03/01/2023 09:35 Report Date: 03/02/2023 13:21 At the request of: DARSHAN ESPINO Procedure: CT chest w con EXAM: CT chest w con HISTORY: Mass Of Upper Lobe Left Lung R91.9, Enlarged Lymph Nodes COMPARISON: 12/06/2022, 09/06/2022, 07/28/2022, 06/21/2022 TECHNIQUE: CT of the chest with intravenous contrast. Dose reduction techniques performed. FINDINGS: Attacher: No pertinent findings, which are not already [...] Tamayo Signed By:03/02/23 1324 DD/ 1321 TD/TT: Marine Painter: Authorizing ProviderResult TypeResult StatusGeneric External Data Provider CLINISYNC IMAGINGFinal Result documented in this encounter Visit Diagnoses Not on filedocumented in this encounter Care Teams Team MemberRelationshipSpecialtyStart DateEnd Date Siddhartha Huff MD PCP - GeneralFamily Jgwflvgv14/1/234 Siddhartha Huff MD [facility] - [facility] Siddhartha Huff MD [address] [place] [address] PCP - [facility]12/18/23documented as of this encounter
--- OUTSIDE RECORDS SUMMARY | 2025-01-22 11:34 | XMS_ITS | Encounter Summary ---
Author Organization [facility] Address [address] [place] [address] Care Team Providers Care Director Of Maternity Services Name Role Phone Siddhartha Huff MD Primary Care Provider [phone] Siddhartha Huff MD Unavailable Encounter Details DateTypeDepartmentCare Team (Latest Contact Info)Dknigqjvbbp80/11/2024linisync Result Encounter [facility] External Department Unsolicited Provider, Generic External Data Social History Tobacco UseTypesPacks/DayYears UsedDateSmoking Tobacco: BbkgziWvkjogfqlb141 04/19/1988 - 04/19/2023Smokeless Tobacco: NeverSocial Connection and Isolation PanelAnswerDate RecordedIn a typical week, how many times do you talk on the phone with family, friends, or neighbors?More than three times a week07/24/2023 How often do you get together with friends or relatives?Once a week07/24/2023How often do you attend temple or confucianism services?Never07/24/2023o you belong to any clubs or organizations such as temple groups, unions, fraternal or athletic groups, or school groups?No07/24/2023How often do you attend meetings of the clubs or organizations you belong to?Never07/24/2023re you , , , , never , or living with a partner?Xsuidfmk64/07/2024 AUDIT-CAnswerDate RecordedQ1: How often do you have a drink containing alcohol? Never07/24/2023Q2: How many drinks containing alcohol do you have on a typical day when you are drinking?Patient does not drink07/24/2023Q3: How often do you have six or more drinks on one occasion?Never07/24/2023Overall Financial Resource Strain (CARDIA)AnswerDate RecordedHow hard is it for you to pay for the very basics like food, housing, medical care, and heating?Hard07/24/2023Fin[facility] [place] of Occupational Health - Occupational Stress QuestionnaireAnswerDate RecordedDo you feel stress - tense, restless, nervous, or anxious, or unable to sleep at night because yourmind is troubled all the time - these days?To some wujaqi8307/24/2023Exercise Vital SignAnswerDate RecordedOn average, how many days per week do you engage in moderate to strenuous exercise (like a brisk walk)?7 days07/24/2023On average, how many minutes do you engage in exercise at this level?30 min07/24/2023Hunger Vital SignAnswerDate RecordedWithin the past 12 months, you worried that your food would run out before you got the money to buy more.Often true07/24/2023Within the past 12 months, the food you bought just didn't last and you didn't have money to get more.Sometimes true07/24/2023 PRAPARE - TransportationAnswerDate RecordedIn the past 12 months, has lack of transportation kept you from medical appointments or from getting medications?No 07/24/2023In the past 12 months, has lack of transportation kept you from meetings, work, or from getting things needed for daily living?No07/24/2023 Housing Stability Vital SignAnswerDate RecordedIn the last 12 months, was there a time when you were not able to pay the mortgage or rent on time?No07/24/2023In the last 12 months, how many places have you lived?In the last 12 months, was there a time when you did not have a steady place to sleep or slept in ashelter (including now)?No07/24/2023Sex and Gender InformationValueDate RecordedSex Assigned at BirthNot on fileLegal JpwIxug04/10/2023 9:37 AM EST Gender IdentityNot on fileSexual OrientationNot on filedocumented as of this encounter Plan of Treatment Not on file documented as of this encounter Procedures Procedure NamePriorityDate/TimeAssociated DiagnosisCommentsCT CHEST WO CON 11/28/2023 6:47 AM EDT documented in this encounter Results * CT CHEST WO CON (11/28/2023 6:47 AM EDT)Anatomical RegionLateralityModality OtherSpecimen (Source)Anatomical Location / LateralityCollection Method / VolumeCollection TimeReceived Time11/28/2023 6:47 AM EDT Narrative 11/28/2023 6:50 AM EDT [facility] ?[address] ? [place] [address] ? CT Scan Report ? Signed ? Patient: NAVEEN,ALONA S ?MR#: [id number] ?? : 1970 ?Acct:[id number] ?? Age/Sex: 53 / M ?ADM Date: 11/27/23 ?? Loc: CT ? Attending Dr: Darshan Espino D.O. ? Ordering Physician: Darshan Espino D.O. ?? Date of Service: 11/27/23 ?? Procedure(s): CT chest wo con ?? Accession Number(s): [id number] ? cc: Siddhartha Huff M.D. ? [facility] ? [address] ? [place] [address] ? Patient Name: ?? ALONA PATINO ? MRN: [facility]:[id number] ? date: 1970 ?Sex: M ?? Assigned Patient Location: CT ?? Current Patient Location: ? Accession/Order Number: [id number] ?? Exam Date: 11/27/2023 ??09:00 ?Report Date: 11/28/2023 ??06:47 ? At the request of: ?? DARSHAN ??SRINIVAS ? Procedure: ??CT chest wo con ? EXAMINATION: CT chest wo con ? HISTORY: Abnormal Findings On Lung Field R91.8 ? COMPARISON: CT chest 06/04/2023, 03/01/2023 ? TECHNIQUE: Axial, Coronal, and Sagittal images were created without the ?? administration of IV contrast material. Dose reduction techniques were ?? achieved ?? by using automated exposure control and/or adjustment of mA and/or kV ?? according ?? to patient size and/or use of iterative reconstruction technique. ? FINDINGS: ?? LUNGS: Emphysematous versus extensive bullous changes bilaterally. Mild ?? bronchiectasis. Stable scattered patchy/nodular opacities. ?? PLEURA: No mass, effusion, or pneumothorax. ?? VASCULATURE: No abnormality. ?? WILMAR: No mass or pathologic adenopathy. ?? MEDIASTINUM: No mass or pathologic adenopathy. ?? CARDIAC: No enlargement, pericardial thickening, or pericardial effusion. ?? Coronary Artery calcifications: ?? AORTA: No aneurysm or dissection. ?? CHEST WALL: No mass or axillary adenopathy ?? BONES: No bone lesion or fracture. ?? LIMITED ABDOMEN: No suspicious findings. Limited images of the upper abdomen. ?? OTHER: Negative. ? CT/CT chest wo con ?? IMPRESSION: ? 1. Stable emphysematous/bullous changes. ?? 2. Stable bronchiectasis. ?? 3. Stable scattered patchy/nodular opacities; nonspecific. Additional ?? follow-up ?? in one year to document continued stability should be considered. ? Electronically authenticated by: DOT ??OPAL ?? Date: 11/28/2023 ??06:47 ? Dictated By: ?Dot Martin M.D. ? Signed By: ?11/28/23 0650 ? DD/ 0647 ? TD/TT: ? Quantitative Research Analyst: Procedure Note Radiology, Radiologist, MD - 11/28/[address] [place] [id number] Scan Report Signed Patient: ALONA PATINO [facility]#: [id number] : 1970Acct:[id number] Age/Sex: 53 / MADM Date: 11/27/23 Loc: CT Attending Dr: Darshan Espino D.O. Ordering Physician: Darshan Espino D.O. Date of Service: 11/27/23 Procedure(s): CT chest wo con Accession Number(s): [id number] cc: Siddhartha Huff M.D. The [address] [address] Patient Name: ALONA PATINO MRN: [id number] date: 1970 Sex: M Assigned Patient Location: CT Current Patient Location: Accession/Order Number: [id number] Exam Date: 11/27/2023 09:00 Report Date: 11/28/2023 [...] M.D. Signed By:11/28/23 0650 DD/ 0647 TD/TT: Quantitative Research Analyst: Authorizing ProviderResult TypeResult StatusGeneric External Data Provider CLINISYNC IMAGINGFinal Result documented in this encounter Visit Diagnoses Not on filedocumented in this encounter Care Teams Team MemberRelationshipSpecialtyStart DateEnd Date Siddhartha Huff MD PCP - [facility]06/22/23 Siddhartha Huff MD [address] [place] [address] [facility] - [facility]12/18/23documented as of this encounter
--- OUTSIDE RECORDS SUMMARY | 2025-01-22 11:34 | XMS_ITS | Clinical Summary ---
Author Organization [facility] Address [address] [place] [address] Care Team Providers Care Relay Checker Name Role Phone Siddhartha Huff MD Primary Care Provider [phone] Allergies No known active allergies Medications MedicationSigDispense [...] 10 mg tablet Indications:Coronary artery disease involving lytton coronary artery of lytton heart without angina pectoris,Mixed hyperlipidemiaTake 1 tablet (10 mg) by mouth in the morning. 90 tablet 306//[id number]/6Active rosuvastatin (Crestor) 20 mg tablet Indications:Coronary artery disease due to lipid rich plaqueTake 1 tablet (20 mg) by mouth at bedtime. 90 tablet 308//153366/6Active Active Problems ProblemNoted DateDiagnosed DateCentrilobular /30/2025ervical cnyfdxaywgiwp30/30/2025Long term (current) use of inhaled /30/2025Mass of upper lobe of left lung09/15/2024Nondependent cannabis abuse09/15/2024hronic neck pain07/21/2024Encounter for long-term current use of yqtibimubl02/04/2024 Gastroesophageal reflux disease without gikzkgmovno97/04/2024Screening PSA (prostate specific antigen)01/21/2024therosclerotic heart disease of lytton coronary artery without angina ebqemvdq65/08/2024 Overview (10/15/2023): Last Assessment & Plan: No pain and continue medication. Follow up with cardiology. BPH associated with ihnxcgfa37/08/2024 Overview (10/15/2023): Last Assessment & Plan: Increased urinary symptoms and try flomax. PSA normal in January. MDD (major depressive disorder), recurrent episode, vwufiedt96/08/2024 Overview (10/15/2023): Last Assessment & Plan: Worsening symptoms and increase celexa. Warned will take 2-3 weeks to notice improvement in mood. Continue wellbutrin. Dysfunction of left eustachian tube06/22/2023 Overview (10/15/2023): Last Assessment & Plan: No wax and fluid behind TM. Treat with prednisone and start flonase. If no improvement may need ENTreferral. Mjduqjsgfiw22/05/2024Vitamin D livlqxckac11/05/2024ngina pectoris, unstable 05/25/2023hronic obstructive pulmonary erphdbm85yslipidemia eneralized anxiety sfsabssh35 Hyperlipidemia, moowiemqdwv22Hypothyroidism12/11/2022 12/11/2022Tobacco useUnspecified symptoms and signs involving the musculoskeletal rmycaj75 Encounters DateTypeDepartmentCare QcpzWenxredweyf62/19/2025[facility] [place] [address] [place] [address] Clau Wright MA Coronary artery [...] ValueDate RecordedSex Assigned at BirthNot on fileLegal KaoCzwk4812/07/2022 3:52 PM EDTGender IdentityNot on fileSexual OrientationNot on file Last Filed Vital Signs Vital SignReadingTime TakenCommentsBlood Phxfrrpk848/7906 2:44 PM EDT Nisdi2068 2:44 PM EDTTemperature--Respiratory Aite7928/01/2024 11:00 AM EDTOxygen Oxifnhpigl46%09/15/2024 2:44 PM EDTInhaled Oxygen Concentration-- Atwpbx38.2 kg (157 lb)09/15/2024 2:44 PM CLJZlypxm277.2 cm (5' 7 )09/15/2024 2:44 PM EDTBody Mass Index24.59009/15/2024 2:44 PM EDT Plan of Treatment Health MaintenanceDue DateLast DoneCommentsCT Lalmcuasqurv97/02/1969Colonoscopy 1968Colorectal Cancer Bytefmuxy02/02/1969Diabetes: Hemoglobin A1C 1968FIT-DNA1968FIT1968FOBT1968 4884Ggvvwatmtmziy73/02/1969 Depression Bshkehfiq46/02/1981Hepatitis B Vaccines (1 of 3 - 19+ 3-dose series) 1987Pneumococcal Vaccine: Pediatrics (0 to 5 Years) and At-Risk Patients (6 to 64 Years) (1 of 2 - PCV)1987Adult Ggwhqvy7204/20/1990Zoster Vaccines (1 of 2)2018COVID-19 Vaccine ( season)511/01/2022, [...] Date Siddhartha Huff MD [address] [place] [address] PCP - [facility]12/11/22
--- OUTSIDE RECORDS SUMMARY | 2025-01-22 11:34 | XMS_ITS | Clinical Summary ---
Author Organization [facility] Address [address] [place] [address] Care Team Providers Care Clinical Trials Manager Name Role Phone Siddhartha Huff MD Primary Care Provider [phone] Siddhartha Huff MD Unavailable Allergies No known active allergies Medications MedicationSigDispense QuantityRefillsLast FilledStart DateEnd DateStatus Dnkedmd-Qbuxzutwvlk-Syevgwyjbv (Breztri Aerosphere) 160-9-4.8 MCG/ACT aerosol every 12 [...] mouth 4 (four) times a day as mfirtw6605/03/2023ctive rosuvastatin (Crestor) 20 MG tablet Take 20 [...] Use ultram PRN. Gastroesophageal reflux disease without odyawkmryhx93/04/2024 Assessment & Plan (07/21/2024 9:30 AM EDT): Symptoms controlled with medication and continue. Assessment & Plan (01/21/2024 9:40 AM EST): Frequent symptoms and start omeprazole. Encounter for long-term current use of bdptaypqhs93/04/2024Screening PSA (prostate specific antigen)01/21/2024Non-occlusive coronary artery disease 07/25/2023 Assessment & Plan (01/21/2024 9:41 AM EST): No pain and follow with cardiology. Assessment & Plan (07/25/2023 9:37 AM EDT): No pain and continue medication. Follow up with cardiology. MDD (major depressive disorder), recurrent episode, cpuvevbw70/08/2024 Assessment & Plan (07/21/2024 9:30 AM EDT): Symptoms controlled with medication and continue. Assessment & Plan (01/21/2024 9:41 AM EST): Symptoms controlled with medication and continue. Assessment & Plan (07/25/2023 9:37 AM EDT): Worsening symptoms and increase celexa. Warned will take 2-3 weeks to notice improvement in mood. Continue wellbutrin. BPH associated with vyfsbjqy63/08/2024 Assessment & Plan (07/25/2023 9:36 AM EDT): [...] and continue inhalers. Follow up with pulmonology. Spnzyeutrztd01/05/2024Generalized anxiety qepaixqg01/05/2024 Assessment & Plan (07/21/2024 9:30 AM EDT): [...] Symptoms controlled with medication and continue. Adult jvrfzwbidqbgnc25/05/2024 Assessment & Plan (01/21/2024 9:40 AM EST): No signs of low thyroid and continue medication. Assessment & Plan (07/25/2023 9:36 AM EDT): No signs of low thyroid and continue medication. Geihxkilzqd63/05/2024Vitamin D sjobxxygxp62/05/2024ysfunction of left eustachian tube06/22/2023 Assessment & Plan (06/22/2023 10:44 AM EDT): No wax and fluid behind TM. Treat with prednisone and start flonase. If no improvement may need ENTreferral. Encounters DateTypeDepartmentCare RrnrUkmnucmlqlw01/19/2025Refill [facility] [address] [place] [address] Siddhartha Huff MD Dysfunction of left eustachian tubefrom Last 3 Months Social History Tobacco UseTypesPacks/DayYears UsedDateSmoking Tobacco: FxpsfoEshovjfirx945 04/19/1988 - 04/19/2023Smokeless Tobacco: Never Tobacco Cessation:Counseling Given: Not Answered Social Connection and Isolation PanelAnswerDate RecordedIn a typical week, how many times do you talk on the phone with family, friends, or neighbors?More than three times a week07/24/2023How often do you get together with friends or relatives?Once a week07/24/2023How often do you attend cheondoism or presybeterian services?Never07/24/2023o you belong to any clubs or organizations such as cheondoism groups, unions, fraternal or athletic groups, or school groups?No 07/24/2023How often do you attend meetings of the clubs or organizations you belong to?Never07/24/2023re you , , , , never , or living with a partner?Fuhasdcp76/07/2024UDIT-CAnswerDate Recorded Q1: How often do you have [...] basics like food, housing, medical care, and heating?Hard07/24/2023Finut[facility] [place] of Occupational Health - Occupational Stress QuestionnaireAnswerDate RecordedDo you feel stress - tense, restless, nervous, or anxious, or unable to sleep at night because your mind is troubled all the time - these days?To some ylewat3207/24/2023Exercise Vital SignAnswerDate RecordedOn average, how many days [...] InformationValueDate RecordedSex Assigned at BirthNot on fileLegal UdxGqgs02/10/2023 9:37 AM ESTGender IdentityNot on fileSexual OrientationNot on file Last Filed Vital Signs Vital SignReadingTime TakenCommentsBlood Zblmntdv535/8205 8:58 AM EDT Whdjl693107/21/2024 8:58 AM UCNGpiltlcspca98.2 ??C (97.1 ??F)07/21/2024 8:58 AM EDTRespiratory Crlv234907/21/2024 8:58 AM EDTOxygen Lqqngfzdtc50%07/21/2024 8:58 AM EDTInhaled Oxygen Concentration--Alefzz99.5 kg (162 lb)07/21/2024 8:58 AM EDT Boqxiu020.7 cm (5' 8 )07/21/2024 8:58 AM EDTBody Mass Index24.63007/21/2024 8:58 AM EDT Plan of Treatment Health MaintenanceDue DateLast DoneCommentsCT Vmpafqpsndap42/02/1969FIT-DNA 1968FIT1968FOBT1968Lung Cancer Screening Shared Decision Olsibn78 1970 7397Zcrtkcemigpso73/02/1969Pneumococcal Vaccine: Pediatrics (0 to 5 Years) and At-Risk Patients (6 to 64 Years) (1 of 2 - PCV)1987COVID-19 Vaccine ( season)/, 01/24/2021, 07/14/2020, Additional history existsInfluenza Vaccine (#1)5869Rrvhfqpvtnr94/07/2032 2Colorectal Cancer Cnjgzrngk97/07/2032 Insurance Care Teams Team MemberRelationshipSpecialtyStart DateEnd Date Siddhartha Huff MD PCP - [facility]06/22/23 Siddhartha Huff MD [address] [place] [address] PCP - [facility]12/18/23
--- OUTSIDE RECORDS SUMMARY | 2025-01-22 11:35 | XMS_ITS | Encounter Summary ---
Author Organization [facility] Address [address] [place] [address] Phone Care Team Providers Care Eyelet Cutter Name Role Phone Unavailable Primary Care Provider Unavailabl e Reason for Referral * Imaging (Routine) - AuthorizedSpecialtyDiagnoses / ProceduresReferred By ContactReferred To ContactRadiology Diagnoses Lung nodule Procedures CT chest wo IV contrast for [facility] [place] [address] [place] [address] Phone: tel: fax: Referral IDStatusReasonStart DateExpiration DateVisits RequestedVisits [id number] Perform Procedure * Endoscopy (Routine) - AuthorizedSpecialtyDiagnoses / ProceduresReferred By ContactReferred To ContactGastroenterology Diagnoses Lung nodule Procedures Bronchoscopy Tier 3; Navigational, w EBUS, [place] [address] [place] [address] Phone: tel: fax: Referral IDStatusReasonStart DateExpiration DateVisits RequestedVisits [id number]/22/202510/22/202611 Encounter Details DateTypeDepartmentCare Team (Latest Contact Info)Djhlxlotiiz62/22/2025Orders Only [facility] [address] [facility] 6th [place] [phone] [place] [address] [place] [address] Lung nodule (Primary Dx); Pre-op testing Social [...] Next available Post-bronchoscopy visit: Not necessary Location: [facility] Performing physician: Advanced diagnostic bronchoscopist Referring physician: [...] Plan of Treatment DateTypeDepartmentCare Team (Latest Contact Info)Mjtkvdmbcbn87/10/2025 9:30 AM ESTAppointment [facility] [address] [place] [phone] 01/26/2025 11:30 AM ESTAppointment [facility] [address] [place] [phone] [place] [address] [place] [address] NameTypePriorityAssociated DiagnosesOrder ScheduleBronchoscopy Tier 3; Navigational, w EBUS, w FluoroscopyEndoscopyRoutine Lung nodule Expected: 01/07/2025, Expires: 01/07/2026T chest wo IV contrast for JARAD koehler planningImagingRoutine Lung nodule 1 Occurrences starting 01/07/2025 [...]
--- OUTSIDE RECORDS SUMMARY | 2025-01-22 11:35 | XMS_ITS | Encounter Summary ---
Author Organization [facility] Address [address] [place] [address] Phone Care Team Providers Care Charge Preparation Technician Name Role Phone Unavailable Primary Care Provider Unavailabl e Encounter Details DateTypeDepartmentCare Team (Latest Contact Info)Gxkozlgdjun22/23/2025Orders Only [facility] [address] [place] [phone] ProviderGabriella MD [address] [place] [address] Social History Tobacco UseTypesPacks/DayYears UsedDateSmoking Tobacco: Never AssessedSex and Gender InformationValueDate RecordedSex Assigned at BirthNot on fileLegal Sex Male08/11/2022 2:37 PM EDTGender IdentityNot on fileSexual OrientationNot on filedocumented as of this encounter Plan of Treatment DateTypeDepartmentCare Team (Latest Contact Info)Kxufgoucvqp54/10/2025 9:30 AM ESTAppointment [facility] [address] [place] [phone] 01/26/2025 11:30 AM ESTAppointment [facility] [address] [place] [phone] [place] [address] [place] [address] documented as of this encounter Procedures Procedure NamePriorityDate/TimeAssociated DiagnosisCommentsCT - ONBASE SCAN Xubmmlv8101/08/2025 4:50 AM EDTCT - ONBASE UOEEVdtdalp63/23/2025 4:36 AM EDTPET - ONBASE RVDUJgfmxpk60/23/2025 4:32 AM EDTdocumented in this encounter Results * CT - OnBase Scan (01/08/2025 4:50 AM EDT)Anatomical RegionLateralityModality Computed Tomography Narrative Authorizing ProviderResult TypeResult StatusHistorical Provider IMG CT PROCEDURESFinal Result * CT - OnBase Scan (01/08/2025 4:36 AM EDT)Anatomical RegionLateralityModality Computed Tomography Narrative Authorizing ProviderResult TypeResult StatusHistorical Provider MALA CT PROCEDURESFinal Result * PET - OnBase Scan (01/08/2025 4:32 AM EDT)Anatomical RegionLateralityModality Nuclear Medicine Narrative Authorizing ProviderResult TypeResult StatusHistorical Provider IMKennedy NM PROCEDURESFinal Result documented in this encounter Visit Diagnoses Not on filedocumented in this encounter
--- OUTSIDE RECORDS SUMMARY | 2025-01-22 11:38 | XMS_ITS | CCD ---
Author Organization [facility] Care Team Providers Care Turbo Operator Name Role Phone DR DOT JOSEPH Consulting [...] Attending Unav ailable Unavailable Primary Care Provider UnavailSiddhartha Almazan MD Primary Care Provider Siddhartha Jones MD Unavailable SIDDHARTHA JONES Attending Unavailable MARCUS ALDRIDGE Attending Unavailable DOT QUINTANA Referring Unavailable CHIQUI ALLEN Attending Unavailable QUINTANADOT Referring Unavailable WILLIE BURLESON Attending Unavailable QUINTANA, DOT Cummings Referring Unavailable ONEIL RIVERO Attending Unavailable QUINTANA, DOT C Referring Unavailable MARCUS ALDRIDGE Attending Unavailable DAVID, DOT Cummings Referring Unavailable MARCUS ALDRIDGE Attending Unavailable DAVID, DOT Cummings Referring Unavailable SIDDHARTHA JONES Attending Unavailable KANWAL, HAIDER Attending Unavailable KANWAL, HAIDER Attending Unavailable ALONA KNOX Attending Unavailable Siddhartha Jones MD Primary Care Provider Siddhartha Jones MD Unavailable Siddhartha Jones MD Primary Care Provider [facility] Primary Care Provider [facility] Arleth DODSON Attending Provider Siddhartha Jones MD Attending Provider [phone] Generic Provider , No Assigned Pcp Primary Car e Provider Unavailable Medications Current Medications MedicationDrug Class(es)DatesSig (Normalized)Sig (Original)[id number] 200 actuat albuterol 0.09 mg/actuat metered dose inhaler (20 sources)beta2-Adrenergic AgonistStart: 92-17-7132trqa 1 puff(s) by inhalation every four hours as neededAlbuterol Sulfate (Ventolin Hfa) 90 mcg/actuation HFA aerosol inhaler Active 2 PUFF INHALATION Every 4 hours as needed January 19, 2025 12:00am Complies with drug therapyStart: 01-06-2025 End: 47-84-2548mbay 2 puff(s) by inhalation every four hoursalbuterol 90 mcg/actuation inhaler Inhale 2 puffs every 4 hours if needed. 01/06/2025 04/06/2025 ActiveStart: 78-67-6854vncaccugw (2.5 MG/3ML) 0.083% nebulizer solution INHALE 3ml BY MOUTH via NEBULIZER FOUR TIMES DAILY06/06/2023 Active Start: 33-62-7429uvxa 2 puff(s) by inhalation every four to six hours as needed Albuterol Sulfate HFA 108 (90 Base) MCG/ACT Inhalation Aerosol Solution INHALE 2 PUFFS EVERY 4-6 HOURS NEEDED. Quantity: 1 Refills: 2 Ordered: 24-Aug-2022 Onel KAOVNJennifer Start : 24-Aug-2022 ActiveStart: 60-95-1027ycop 1 puff(s) by inhalation once dailyAlbuterol Sulfate 90 mcg/actuation HFA aerosol inhaler Active 1 PUFF INHALATION Daily December 14, 2020 11:00pm Complies with drug therapytake 2.5 mg by inhalation every four hours as neededalbuterol 2.5 mg /3 mL (0.083 %) nebulizer solution Take 3 mL (2.5 mg) by nebulization every 4 hours if needed for wheezing or shortness of breath. Activetake 2 puff(s) by inhalation every four hoursVentolin HFA 108 (90 Base) MCG/ACT inhaler Inhale 2 puffs every 4 (four) hours if needed Activeaspirin 81 mg delayed release oral tablet (20 sources)Platelet Aggregation Inhibitor, Nonsteroidal Anti-inflammatory Drug take 1 tablet by mouth once dailyaspirin 81 mg EC tablet Take 1 tablet (81 mg) by mouth once daily. [id number] actuat budesonide 0.16 mg/actuat / formoterol fumarate 0.0048 mg/actuat / glycopyrrolate 0.009 mg/actuat metered dose inhaler (20 sources)Corticosteroid, beta2-Adrenergic AgonistStart: 01-19-2025 Qhqemtljcw-Lndhspan-Dvzhoenmla (Breztri Aerosphere) 160-9-4.8 mcg/actuation HFA aerosol inhaler Active 2 INH INHALATION Twice daily January 19, 2025 12:00am Complies with drug therapyStart: 73-49-3122Abkrqos-Glycopyrrol-Formoterol (Breztri Aerosphere) 160-9-4.8 MCG/ACT aerosol every 12 (twelve) hours 06/13/2023 Activetake 2 puff(s) by inhalation twice dailyBreztri Aerosphere 160-9-4.8 mcg/actuation HFA aerosol inhaler Inhale 2 puffs 2 times a day. Active 24 hr buPROPion hydrochloride 300 mg extended release oral tablet (20 sources)AminoketoneStart: 06-13-2023 End: 24-13-9112fini 1 tablet by mouth once daily in the morningBupropion Hcl 300 mg tablet extended release 24 hr Active 300 MG PO Every morning January 19, 2025 12:00am Complies with drug therapycarvedilol 3.125 mg oral tablet (20 sources)alpha-Adrenergic Abdulkadir, beta-Adrenergic BlockerStart: 01-19-2025 take 1 tablet by mouth twice daily at mealtimeCarvedilol 3.125 mg tablet Active 3.125 MG PO Twice daily January 19, 2025 12:00am must administer with a meal/food Complies with drug therapyStart: 06-28-2023 End: 68-07-9575kmnt 1 tablet by mouth in the morningcarvedilol (Coreg) 3.125 MG tablet Take 3.125 mg by mouth in the morning and 3.125 mg in the evening. Take with meals. 06/28/2023 Activecitalopram 20 mg oral tablet (20 sources)Serotonin Reuptake InhibitorStart: 78-61-8521wnpc 1 tablet by mouth once dailycitalopram (CeleXA) 40 mg tablet Take 1 tablet (40 mg) by mouth once daily. 07/14/2024 ActiveStart: 29-80-4064kwrk 1 tablet by mouth once daily citalopram (CeleXA) 40 MG tablet Indications: MDD (major depressive disorder), recurrent episode, moderate (CMS/HCC) TAKE 1 TABLET BY MOUTH DAILY 30 tablet 5 01/01/2024 ActiveStart: 12-15-2020 End: 07-45-8999Ubrxhshlec 20 mg tablet Active 20 MG PO As Directed January 05, 2025 3:03pm Complies withdrug therapyezetimibe 10 mg oral tablet (1 source)Dietary Cholesterol Absorption Inhibitortake 1 tablet by mouth once daily before mealtimeezetimibe (Zetia) 10 mg tablet Take 1 tablet (10 mg) by mouth once daily in the morning. Take before meals. Activefluticasone propionate 0.05 mg/actuat metered dose nasal spray (20 sources)CorticosteroidStart: 99-59-3723kpqr 2 spray(s) nasal route once dailyfluticasone (Flonase) 50 MCG/ACT nasal spray Indications: Dysfunction of left eustachian tube instill 2 (TWO) spray IN EACH NOSTRIL DAILY 16 g 2 08/12/2024 ActiveStart: 53-25-4468xswv 2 spray(s) nasal route once daily fluticasone (Flonase) 50 MCG/ACT nasal spray Indications: Dysfunction of left eustachian tube instill 2 (TWO) sprays IN EACH NOSTRIL DAILY; shake gently; BEFORE first use, prime pump; after use cleantip and replace cap 16 g 2 05/14/2024 ActiveStart: 29-72-3777opjn 2 spray(s) nasal route once daily fluticasone (Flonase) 50 MCG/ACT nasal spray Indications: Dysfunction of left eustachian tube instill 2 (TWO) sprays IN EACH NOSTRIL DAILY *shake gently, BEFORE first use- prime pump, after use cleantip and replace cap 16 g 2 01/29/2024 ActiveStart: 48-58-9662gfkw 2 spray(s) nasal route once daily fluticasone (Flonase) 50 MCG/ACT nasal spray Indications: Dysfunction of left eustachian tube instill 2 (TWO) sprays IN EACH NOSTRIL DAILY *shake gently, BEFORE first use- prime pump, after use cleantip and replace cap* 16 g 2 11/05/2023 Activetake 2 spray(s) nasal route once dailyfluticasone (Flonase) 50 mcg/actuation nasal spray Administer 2 sprays into each nostril once daily. Dujhlh38 hr guaiFENesin 600 mg extended release oral tablet (1 source)Start: 77-61-7881pftj 2 tablets by mouth every twelve hoursMucus Relief ER 600 mg 12 hr tablet Take 2 tablets (1,200 mg) by mouth every 12 hours. 09/25/2024 Activelevothyroxine sodium 0.112 mg oral tablet (20 sources)l-ThyroxineStart: 31-52-8969zkaj 1 tablet by mouth once daily Levothyroxine 112 mcg tablet Active 112 MCG PO Daily January 19, 2025 12:00am Complies with drug therapyStart: 58-74-2836vyvj 1 tablet by mouth once daily levothyroxine (Synthroid, Levoxyl) 112 MCG tablet Indications: Hypothyroidism, unspecified TAKE 1 TABLET BY MOUTH DAILY 90 tablet 3 06/12/2024 ActiveStart: 25-54-3751mudi 1 tablet by mouth once dailylevothyroxine (Synthroid, Levoxyl) 112 MCG tablet Indications: Hypothyroidism, unspecified (CMS/HCC) TAKE 1 TABLET BY MOUTH DAILY 90 tablet 3 06/13/2023 ActiveStart: 38-28-7165Orrhelbqlisli Sodium Powder USE DIRECTED. Quantity: 1 Refills: 0 Ordered: 24-Aug-2022 Jennifer Bearden Start : 24-Aug-2022 Activemethocarbamol 750 mg oral tablet (20 sources)Muscle RelaxantStart: 66-17-3227umnr 1 tablet by mouth four times daily as neededMethocarbamol 750 mg tablet Active 750 MG PO Four times daily as needed January 19, 2025 12:00am Complies with drug therapyomeprazole 40 mg delayed release oral capsule (20 sources)Proton Pump InhibitorStart: 31-21-7088txxl 1 capsule by mouth once dailyOmeprazole 40 mg capsule,delayed release(DR/EC) Active 40 MG PO Daily January 04, 2025 11:00pm Complies with drug therapyStart: 28-73-6231duho 1 capsule by mouth before mealtimeomeprazole (PriLOSEC) [address] capsule Indications: Gastroesophageal reflux disease without esophagitis TAKE 1 CAPSULE BY MOUTH IN THE MORNING BEFORE MEALS * DO NOT CRUSH OR CHEW * 30 capsule 5 07/14/2024 ActiveStart: 96-21-1510flno 1 capsule by mouth before mealtime omeprazole (PriLOSEC) [address] capsule Indications: Gastroesophageal reflux disease without esophagitis Take 1 capsule (40 mg) by mouth in the morning. Take before meals. Do not crush or chew.. 30 capsule 5 01/21/2024 ActivepredniSONE 50 mg oral tablet (1 source)Start: 06-10-2024 End: 61-51-2724rhox 1 tablet by mouth once dailypredniSONE (Deltasone) 50 MG tablet Indications: Dysfunction of left eustachian tube Take 1 tablet (50 mg) by mouth Daily for 6 days 6 tablet 06/10/2024 06/16/2024 Activerosuvastatin calcium 20 mg oral tablet (20 sources)HMG-CoA Reductase Inhibitortake 1 tablet by mouth once daily at bedtimerosuvastatin (Crestor) 20 mg tablet Take 1 tablet (20 mg) by mouth once daily at bedtime. Activetamsulosin hydrochloride 0.4 mg oral capsule (20 sources)alpha-Adrenergic BlockerStart: 12-23-1607unnq 1 capsule by mouth once dailyTamsulosin 0.4 mg capsule Active 0.4 MG PO Daily 15 08January 06, 2025 11:00pm Complies with drugtherapyStart: 54-98-8229uprd 1 capsule by mouth once dailytamsulosin (Flomax) 0.4 MG 24 hr capsule Indications: BPH associated with nocturia TAKE 1 CAPSULE BY MOUTH DAILY 30 capsule 5 07/14/2024 ActiveStart: 74-30-7124bzfd 1 capsule by mouth once dailytamsulosin (Flomax) 0.4 MG 24 hr capsule Indications: BPH associated with nocturia TAKE 1 CAPSULE BY MOUTH DAILY 30 capsule 5 01/01/2024 ActivetraMADol hydrochloride 50 mg oral tablet (14 sources)Opioid AgonistStart: 21-38-1348iblt 1 tablet by mouth every six hours as neededtraMADol (Ultram) 50 mg tablet Take 1 tablet (50 mg) by mouth every 6 hours if needed. 07/21/2024 ActiveStart: 07-21-2024 End: 47-49-9025bmws 1 tablet by mouth four times daily as needed for pain traMADol (Ultram) 50 MG tablet Indications: Chronic neck pain Take 1 tablet (50 mg) by mouth 4 (four) times a day as needed for severe pain 120 tablet 07/21/2024 08/20/2024 ActiveStart: 06-30-2024 End: 09-40-9718rpdk 1 tablet by mouth four times daily as needed for pain traMADol (Ultram) 50 MG tablet Indications: Neck pain Take 1 tablet (50 mg) by mouth 4 (four) timesa day as needed for severe pain for up to 7 days 28 tablet 06/30/2024 07/07/2024 ActiveStart: 06-16-2024 End: 97-09-2791vxci 1 tablet by mouth four times daily [...] dry powder inhaler (1 source)Corticosteroid, beta2-Adrenergic AgonistStart: 51-86-4463bcyq 1 dose by mouth every twelve hoursFluticasone-Salmeterol 250-50 MCG/ACT Inhalation Aerosol Powder Breath Activated INHALE 1 DOSE BY MOUTH EVERY 12 HOURS RINSE AND SPIT AFTER USE Quantity: 1 Refills: 5 Ordered: 24-Aug-2022 Jennifer Bearden Start : 24-Aug-2022 [id number] actuat formoterol fumarate 0.005 mg/actuat / mometasone furoate 0.1 mg/actuat metered dose inhaler (1 source)Corticosteroid, beta2-Adrenergic AgonistStart: 12-15-2020 End: 64-91-0431uuhh 1 puff(s) by inhalation once dailyMometasone-Formoterol (Dulera) 100-5 mcg/actuation HFA aerosol inhaler Discontinued 1 PUFF INHALATION Daily December 14, 2020 11:00pm January 19, 2025 10:07amlovastatin 40 mg oral tablet (1 source)HMG-CoA Reductase InhibitorStart: 12-15-2020 End: 48-80-9377Wzywmixrdr 40 mg tablet Discontinued 40 MG PO As Directed December 14, 2020 11:00pm January 19, 2025 10:06am60 actuat tiotropium 0.95389 mg/actuat inhalation spray (1 source)AnticholinergicStart: 12-15-2020 End: 54-65-1821dlaz 1 puff(s) by inhalation once dailyTiotropium Troy (Spiriva Respimat) 1.25 mcg/actuation mist Discontinued 1 PUFF INHALATION Daily December 14, 2020 11:00pm January 19, 2025 10:07am7 actuat umeclidinium 0.0625 mg/actuat dry powder inhaler (1 source)AnticholinergicStart: 43-35-9766lobr 1 puff(s) by inhalation once dailyIncruse Ellipta 62.5 MCG/ACT Inhalation Aerosol Powder Breath Activated INHALE 1 PUFF DAILY. Quantity: 1 Refills: 5 Ordered: 24-Aug-2022 Onel LONDONO CNP Jennifer Start : 24-Aug-2022 Active Problems Active Problems Problem ClassificationProblemDateDocumented DateEpisodic/ChronicAnxiety disorders (20 sources)Anxiety; Translations: [Anxiety state, unspecified]Onset: 09-06-2022 85-30-4033ArlisreIunolqf and circulatory congenital anomalies (2 sources)Malformation of coronary vessels; Translations: [Malformation of coronary vessels]Onset: 43-18-9016ZlkktpwCjwqoyz obstructive pulmonary disease and bronchiectasis (20 sources)Centrilobular emphysema; Translations: [Chronic obstructive pulmonary disease, unspecified]Onset: 49-23-6854EbxefyzAsttklg on above:Problem List clean-up per request of Phys. EHR CmteCoronary atherosclerosis and other heart disease (20 sources)Atherosclerotic heart disease of [place] coronary artery without angina pectoris; Translations: [Coronary arteriosclerosis]Onset: 09-06-2022 12-33-6517KafrfjrYrwahbtb mellitus without complication (20 sources)Prediabetes; Translations: [Prediabetes]Onset: 542294-93-5450 EpisodicDisorders of lipid metabolism (20 sources)Hyperlipidemia, unspecified; Translations: [Pure hypercholesterolemia, unspecified]Onset: 548985-99-0103JhxmdkpSdfwoidszf disorders (20 sources)Gastro-esophageal reflux disease without esophagitis; Translations: [Gastroesophageal reflux disease without esophagitis]Onset: 211221-57-6147 ChronicHyperplasia of prostate (20 sources)Nocturia due to benign prostatic hypertrophy; Translations: [Benign prostatic hyperplasia with lower urinary tract symptoms]Onset: 07-25-2023 61-47-7500OnhvkplTpmo disorders (20 sources)Depressive disorder; Translations: [Depression, unspecified]Onset: 957443-95-0948DndrtyqOkex disorders (1 source)Mood disorders; Translations: [Depression, unspecified]Onset: 84-18-9959Eaxmgspctwo deficiencies (20 sources)Vitamin D deficiency, unspecified; Translations: [Vitamin D deficiency]Onset: 934971-89-8852BxosklnWckdh aftercare (1 source)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; Translations: [RESIDENTIAL USE OF INHALED STEROIDS]Onset: 47-35-7731ZegtaxpoSbewa connective tissue disease (5 sources)Muscle weakness of upper limb; Translations: [Muscle weakness (generalized)]36-74-7741NmjjpurqEybcb lower respiratory disease (6 sources)Other nonspecific abnormal finding of lung field; Translations: [OTH NONSPECIFIC ABN FIND LNG FIELD]Onset: 34-14-9075YhypxvuvRkgea lower respiratory disease (3 sources)Nodule of lung; Translations: [Solitary pulmonary nodule]01-21-2025 EpisodicOther lower respiratory disease (4 sources)Solitary pulmonary nodule; Translations: [Solitary pulmonary nodule] Onset: 67-29-1086DtpefpkmFckrl lower respiratory disease (1 source)Other forms of dyspnea; Translations: [Other forms of dyspnea]Onset: 90-06-4731FlujkrklSyqee lower respiratory disease (1 source)Solitary nodule of lung; Translations: [Solitary pulmonary nodule] 55-50-4932XnauioibNeybs lower respiratory disease (1 source)Dyspnea; Translations: [Other forms of dyspnea]27-81-0328Fceqlakf Otitis media and related conditions (20 sources)Dysfunction of left eustachian tube; Translations: [Unspecified Eustachian tube disorder, left ear]Onset: 655645-84-8206FpicmkazYgmlmvdfs and history of mental health and substance abuse codes (1 source)Personal history of nicotine dependence; Translations: [PERSONAL HISTORY OF NICOTINE DEPEND]Onset: 95-93-4534TazteeqkOshdsmqnjpq; intervertebral disc disorders; other back problems (20 sources)Neck pain; Translations: [Cervicalgia]Onset: 211634-64-3825 EpisodicSubstance-related disorders (8 sources)Nicotine dependence, cigarettes, with unspecified nicotine-induced disorders; Translations: [Nicotine dependence, cigarettes, uncomplicated]Onset: 82-58-4813FjzwhiaPkjuxxx disorders (20 sources)Hypothyroidism, unspecified; Translations: [Hypothyroidism]Onset: 70-87-6673NhvgoadIhosvfvmqkuz (1 source)CONTACT W/AND (SUSP) EXPOS COVID-19; Translations: [CONTACT W/AND (SUSP) EXPOS COVID-19]Onset: 07-10-2022 Past or Other Problems Problem ClassificationProblemDateDocumented DateEpisodic/ChronicOther aftercare (1 source)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; Translations: [OTH RESIDENTIAL CURRENT DRUG THERAPY]Onset: 46-92-7172LnrrqkvwXcaom aftercare (20 sources)Long-term current use of drug therapy; Translations: [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 niger IgE Qn (S) NegativeNeg:<1:1FUniversity Hospitals Portage Medical CenterBlood Mycobacterium tuberculosis tuberculin stimulated gamma interferon detectionOrdered By: Arleth Espino on 01-09-2025M. tuberculosis tuberculin stim IFN-g Ql (Bld)Comment. [facility] HospitalComment on above:QuantiFERON-TB Gold Plus is a qualitative indirect test forM tuberculosis infection (including disease) and isintended for use in conjunction with risk assessment,radiography, and other medical and diagnostic evaluations.The QuantiFERON-TB Gold Plus result is determined bysubtracting the Nil value from either TB antigen (Ag)value. The Mitogen tube serves as a control for the test.M. tuberculosis tuberculin stim IFN-g Ql (Bld)0.05 [IU]/mL.[facility] HospitalBlood mitogen stimulated gamma interferon measurement (units/volume)Ordered By: Arlethjesus Guevara on 43-20-8456Xpcmdly stimulated gamma interferon Qn (Bld)>10.00 [IU]/mL. [facility] HospitalMycobacterium tuberculosis stimulated gamma interferon [Interpretation] in Blood QualOrdered By: Arleth Ismael on 01-09-2025 M. tuberculosis stim IFN-g Ql (Bld) [Interp]NegativeNegativeMemorial Health System Selby General HospitalComment on above:No response to M tuberculosis antigens detected.Infection with M tuberculosis is unlikely, but highriskindividuals should be considered for additional testing(ATS/IDSA/CDC Clinical Practice Guidelines, 2017). Thereference range is an Antigen minus Nil result of <0.35IU/mL.Chemiluminescence immunoassay methodologyPerformed at: [facility] [address] [id number] Director: Chilango Lim PhD, Phone: [phone] Panel InformationOrdered By: Arleth Ismael on 01-09-2025 Aspergillus fumigatus AntibodyNegativeNeg:<1:1FUniversity Hospitals Portage Medical Center Blastomyces dermatitidis AntibodyNegativeNeg:<1:1FUniversity Hospitals Portage Medical CenterComment on above:Performed at: [facility] [id number] Director: Olena Steel MD, Phone: [phone] Miscellaneous TestCOMMENT.[facility] HospitalComment on above:Test Ordered: [id number] Histoplasma Abs, Qn, DIDHistoplasma Abs, Qn, DID Negative BN Reference Range: Neg:<1:1Performed at: [facility] [id number] Director: Olena Steel MD, Phone: [phone] at: [facility] [id number] Director: Chilango Lim PhD, Phone: [phone] Test (QFT) IncubationSee comment.[facility] HospitalComment on above: Incubation performed. Reference Range: .Histoplasma Galactomannan Antigen Negative<0.2 ng/mLMemorial Health System Selby General HospitalComment on above:Performed at: - [facility] [id number] Director: Olena Steel MD, Phone: [phone] Aspergillus flavus antibody detection by immunodiffusionOrdered By: Arleth Espino on 01-09-2025. flavus Ab Immune diff Ql (S)NegativeNeg:<1:1FUniversity Hospitals Portage Medical CenterWhole blood measurement of Mycobacterium tuberculosis stimulated gamma interferon relOrdered By: Arleth Espino on 01-09-2025M. tuberculosis stim IFN-g by CD4+ CD8+ T-cells corrected for background Qn (Bld)0.05 [IU]/mL.[facility] Office Visiton 89-97-1333Ywmhdz-up [id number] Alona Patino 1970 M Date Provider Department [facility] Family History Problem Relation Age of Onset Heart attack Mother Heart attack Father Other Father's Brother Family Status - Relation Status Age at Mother Father Father's Brother Level of Service:97466 [place] OFFICE/OUTPATIENT ESTABLISHED LOW MDM [facility]erv[facility] WO contraston 77-94-6523[address] [address] Magnetic Resonance Report Signed Patient: ALONA PATINO MR#: [id number] : 1970 Acct:[id number] Age/Sex: 54 / M ADM Date: 09/03/24 Loc: MRI Attending Dr: Zoe OLSEN Ordering Physician: Zoe Hendricks Date of Service: 09/03/24 Procedure(s): MR cervical spine wo con Accession Number(s): [id number] cc: Siddhartha Jones M.D.; Zoe Hendricks [address] [address] Patient Name: ALONA PATINO MRN: [id number] date: 1970 Sex: M Assigned Patient Location: MRI Current Patient Location: MRI Accession/Order Number: [id number] Exam Date: 09/03/2024 15:06 Report Date: 09/03/2024 [...] Neves M.D. 09/03/2024 3:17 PM Dictation Location: [place] [address] Electronically authenticated by: [id number] Y Date: 09/03/2024 15:17 Dictated By: Abbe Neves M.D. Signed By: 09/03/24 1519 DD/ 16 TD/TT: (more content not included)...TBHRadiology, Radiologist, MD - 09/03/2024 [place] [address] Magnetic Resonance Report Signed Patient: ALONA PATINO MR#: [id number] : 1970 Acct:[id number] Age/Sex: 54 / M ADM Date: 09/03/24 Loc: MRI Attending Dr: Zoe OLSEN Ordering Physician: Zoe Hendricks Date of Service: 09/03/24 Procedure(s): MR cervical spine wo con Accession Number(s): [id number] cc: Siddhartha Jones M.D.; Zoe Hendricks [place] [address] Patient Name: ALONA PATINO MRN: [id number] date: 1970 Sex: M Assigned Patient Location: MRI Current Patient Location: MRI Accession/Order Number: [id number] Exam Date: 09/03/2024 15:06 Report Date: 09/03/2024 [...] Neves M.D. 09/03/2024 3:17 PM Dictation Location: [place] [address] Electronically authenticated by: [id number] Y Date: 09/03/2024 15:17 Dictated By: Abbe Neves M.D. Signed By: 09/03/24 1519 DD/ 16 TD/TT: Sales Special Agent: HODAN HealthcareRadiology Study observation (narrative)[facility] Cervical spine WO contrastOrdered By: Radiologist Radiology on [id number] [employer] Work Phone: MR SHOULDER LEFT W/Oon [phone] [address] Magnetic Resonance Report Signed Patient: ALONA PATINO MR#: [id number] : 1970 Acct:[id number] Age/Sex: 54 / M ADM Date: 07/01/24 Loc: MRI Attending Dr: Dot Quintana M.D. Ordering Physician: oDt Quintana M.D. Date of Service: 07/01/24 Procedure(s): MR shoulder LT wo con Accession Number(s): [id number] cc: Dot Quintana M.D.; Siddhartha Jones M.D. The [place] [id number] Patient Name: ALONA PATINO MRN: [id number] date: 1970 Sex: M Assigned Patient Location: MRI Current Patient Location: MRI Accession/Order Number: [id number] Exam Date: 07/01/2024 12:27 Report Date: 07/01/2024 [...] Hayden Hurd M.D.07/01/2024 12:33 PM Dictation Location: [place] [address] Electronically authenticated by: [id number] Y Date: 07/01/2024 12:33 Dictated By: Hayden Hurd D.O. Signed By: 07/01/24 1235 DD/ 1233 TD/TT: Sales Special Agent:TBHRadiology, Radiologist, MD - 07/01/2024 [place] [address] Magnetic Resonance Report Signed Patient: ALONA PATINO MR#: [id number] : 1970 Acct:[id number] Age/Sex: 54 / M ADM Date: 07/01/24 Loc: MRI Attending Dr: Dot Quintana M.D. Ordering Physician: Dot Quintana M.D. Date of Service: 07/01/24 Procedure(s): MR shoulder LT wo con Accession Number(s): [id number] cc: Dot Quintana M.D.; Siddhartha Jones M.D. [place] [address] Patient Name: ALONA PATINO MRN: [facility]:[id number] date: 1970 Sex: M Assigned Patient Location: MRI Current Patient Location: MRI Accession/Order Number: [id number] Exam Date: 07/01/2024 12:27 Report Date: 07/01/2024 [...] Hayden Hurd M.D.07/01/2024 12:33 PM Dictation Location: [place] [address] Electronically authenticated by: [id number] Y Date: 07/01/2024 12:33 Dictated By: Hayden Hurd D.O. Signed By: 07/01/24 1235 DD/ 1233 TD/TT: Sales Special Agent: HODAN HealthcareRadiology Study observation (narrative)NOM HealthcareMR SHOULDER LEFT W/OOrdered By: Radiologist Radiology on 74-04-2742JCHT Healthcare Work Phone: Office Visiton [phone]-up [id number] Alona Patino 1970 M Date Provider Department Center 04/11/2024 38[facility] Family History Problem Relation Age of Onset Heart attack Mother Heart attack Father Other Father's Brother Family Status - Relation Status Age at Mother Father Father's Brother Level of Service:62023 [place] OFFICE/OUTPATIENT ESTABLISHED LOW [facility] 20 [facility] SystemALL CBC WITH AUTO DIFFon 51-11-4689OROIYBRHA ABSOLUTE AUTO0.1NOMS HealthcareBasophils/100 WBC (Bld)1.4 %0.2 - 2.0 %NOMS HealthcareEosinophils/100 WBC (Bld)11.3 %High0.9 - 7.0 %[facility] Erythrocyte distribution width (RBC) [Ratio]12.7 %11.0 - 15.0 %[facility] Hematocrit (Bld) [Volume fraction]44.5 %42.0 - 54.0 %NOMS HealthcareHemoglobin (Bld) [Mass/Vol]14.8 g/dL14.0 - 18.0 g/dLNOMS HealthcareIMMATURE GRANULOCYTES ABS AUTO0.01NOMS HealthcareImmature granulocytes/100 WBC (Bld)0.2 %0.0 - 0.5 % NOMS HealthcareInterpretation and review of laboratory resultsAbnormalNOLA HealthcareLYMPHOCYTES ABSOLUTE AUTO1.9NOMS HealthcareLymphocytes/100 WBC (Bld) 28.1 %20.5 - 60.0 %NOMS HealthcareMCH (RBC) [Entitic mass]31.8 pg25.9 - 34.0 pg [facility] NetworkHC (RBC) [Mass/Vol]33.3 g/dL29.9 - 35.2 g/dLNortheast Missouri Rural Health NetworkV (RBC) [Entitic vol]95.7 jRUiba43.0 - 94.0 fLVALLEY VIEW MEDICAL CENTER HealthcareMONOCYTES ABSOLUTE AUTO0.4NOMS HealthcareMonocytes/100 WBC (Bld)6.2 %1.7 - 12.0 %[facility] NEUTROPHILS ABSOLUTE AUTO3.5NOLA HealthcareNeutrophils/100 WBC (Bld)52.8 %43.0 - 75.0 %[facility] Veterans' HospitalPlatelet mean volume (Bld) [Entitic vol]8.2 fLLow9.5 - 13.5 fLNOMS HealthcareTBH EO #0.8HighNOMS HealthcareTBH KEV096XZLO HealthcareTBH RBC 4.65LowNOMS HealthcareTBH WBC6.7NOMS HealthcareCLINISYNCNOMS HealthcareCT CHEST WO CONon 15-91-3569[place] [address] [place] Scan Report Signed Patient: ALONA PATINO MR#: [id number] : 1970 Acct:[id number] Age/Sex: 53 / M ADM Date: 11/27/23 Loc: CT Attending Dr: Arleth Espino D.O. Ordering Physician: Arleth Espino D.O. Date of Service: 11/27/23 Procedure(s): CT chest wo con Accession Number(s): [id number] cc: Siddhartha Jones M.D. [place] [address] Patient Name: ALONA PATINO MRN: [id number] date: 1970 Sex: M Assigned Patient Location: CT Current Patient Location: Accession/Order Number: [id number] Exam Date: 11/27/2023 09:00 Report Date: 11/28/2023 [...] should be considered. Electronically authenticated by: DOT JOSEPH Date: 11/28/2023 06:47 Dictated By: Dot Joseph M.D. Signed By: 11/28/2350 DD/ TD/TT: Sales Special Agent:TBHRadiology, Radiologist, - 11/28/2023 [place] [address] CT Scan Report Signed Patient: ALONA PATINO MR#: [id number] : 1970 Acct:[id number] Age/Sex: 53 / M ADM Date: 11/27/23 Loc: CT Attending Dr: Arleth Espino D.O. Ordering Physician: Arleth Espino D.O. Date of Service: 11/27/23 Procedure(s): CT chest wo con Accession Number(s): [id number] cc: Siddhartha Jones M.D. The [address] [address] Patient Name: ALONA PATINO MRN: [id number] date: 1970 Sex: M Assigned Patient Location: CT Current Patient Location: Accession/Order Number: [id number] Exam Date: 11/27/2023 09:00 Report Date: 11/28/2023 06:47 At the request of: ARLETH GUEVARA Procedure: CT chest wo con EXAMINATION: CT [...] should be considered. Electronically authenticated by: DOT JOSEPH Date: 11/28/2023 06:47 Dictated By: Dot Joseph M.D. Signed By: 11/28/2350 DD/ TD/TT: Sales Special Agent: HODAN HealthcareRadiology Study observation (narrative)NOMS HealthcareCT CHEST WO CONOrdered By: Radiologist Radiology on 02-56-5366TYVO Healthcare Work Phone: Office Visiton [phone]-up [id number] Alona Patino 1970 M Date Provider Department Center 10/15/2023 3848HAIDER ARGUETA [facility] Family History Problem Relation Age of Onset Heart attack Mother Heart attack Father Other Father's Brother Family Status - Relation Status Age at Mother Father Father's Brother Level of Service:14449 [place] OFFICE/OUTPATIENT ESTABLISHED LOW [facility] 20 [facility] SystemCT CHEST WO CONon 09-87-1234[address] [address] [address] Scan Report Signed Patient: ALONA PATINO MR#: [id number] : 1970 Acct:[id number] Age/Sex: 53 / M ADM Date: 06/04/23 Loc: CT Attending Dr: Arleth Espino D.O. Ordering Physician: Arleth Espino D.O. Date of Service: 06/04/23 Procedure(s): CT chest wo con Accession Number(s): [id number] cc: Siddhartha Jones M.D. [place] [id number] Patient Name: ALONA PATINO MRN: [id number] date: 1970 Sex: M Assigned Patient Location: CT Current Patient Location: CT Accession/Order Number: [id number] Exam Date: 06/04/2023 12:55 Report Date: 06/04/2023 15:27 At the request of: ARLETH ESPINO Procedure: [...] x 1.1 cm Electronically authenticated by: JOHN SANDHU Date: 06/04/2023 15:27 Dictated By: John Sandhu M.D. Signed By: 06/04/23 1529 DD/ 1527 TD/TT: Sales Special Agent:TBHRadiology, Radiologist, - 06/04/2023 [place] [address] CT Scan Report Signed Patient: ALONA PATINO MR#: [id number] : 1970 Acct:[id number] Age/Sex: 53 / M ADM Date: 06/04/23 Loc: CT Attending Dr: Arleth Espino D.O. Ordering Physician: Arleth Espino D.O. Date of Service: 06/04/23 Procedure(s): CT chest wo con Accession Number(s): [id number] cc: Siddhartha Jones M.D. The [place] [id number] Patient Name: ALONA PATINO MRN: [id number] date: 1970 Sex: M Assigned Patient Location: CT Current Patient Location: CT Accession/Order Number: [id number] Exam Date: 06/04/2023 12:55 Report Date: 06/04/2023 15:27 At the request of: ARLETH ESPINO Procedure: [...] x 1.1 cm Electronically authenticated by: JOHN SANDHU Date: 06/04/2023 15:27 Dictated By: John Sandhu M.D. Signed By: 06/04/23 1529 DD/ 1527 TD/TT: Sales Special Agent: [facility] HealthcareRadiology Study observation (narrative)[facility] HospitalCT CHEST WO CONOrdered By: Radiologist Radiology on 70-35-2415XNZB [employer] Work Phone: ct CHEST W CONTRASTon 13-92-2573Hor[address] [address] [address] Scan Report Signed Patient: ALONA PATINO MR#: [id number] : 1970 Acct:[id number] Age/Sex: 52 / M ADM Date: 03/01/23 Loc: CT Attending Dr: Arleth Espino D.O. Ordering Physician: Arleth Espino D.O. Date of Service: 03/01/23 Procedure(s): CT chest w con Accession Number(s): [id number] cc: Siddhartha Jones M.D. The [address] [address] Patient Name: ALONA PATINO MRN: [id number] date: 1970 Sex: M Assigned Patient Location: CT Current Patient Location: Accession/Order Number: [id number] Exam Date: 03/01/2023 09:35 Report Date: 03/02/2023 13:21 At the request of: ARLETH ESPINO Procedure: CT chest w con EXAM: CT chest w con HISTORY: Mass Of Upper Lobe Left Lung R91.9, Enlarged Lymph Nodes COMPARISON: 12/06/2022, 09/06/2022, 07/28/2022, 06/21/2022 TECHNIQUE: CT of the chest with intravenous contrast. Dose reduction techniques performed. FINDINGS: Evidence Technician: No pertinent findings, which are not already [...] Signed By: 03/02/23 1324 DD/ 1321 TD/TT: Sales Special Agent:TBHRadiology, Radiologist, MD - 03/02/[address] [address] [address] Scan Report Signed Patient: ALONA PATINO MR#: [id number] : 1970 Acct:[id number] Age/Sex: 52 / M ADM Date: 03/01/23 Loc: CT Attending Dr: Arleth Espino D.O. Ordering Physician: Arleth Espino D.O. Date of Service: 03/01/23 Procedure(s): CT chest w con Accession Number(s): [id number] cc: Siddhartha Jones M.D. [address] [address] Patient Name: ALONA PATINO MRN: [id number] date: 1970 Sex: M Assigned Patient Location: CT Current Patient Location: Accession/Order Number: [id number] Exam Date: 03/01/2023 09:35 Report Date: 03/02/2023 13:21 At the request of: ARLETH ESPINO Procedure: CT chest w con EXAM: CT chest w con HISTORY: Mass Of Upper Lobe Left Lung R91.9, Enlarged Lymph Nodes COMPARISON: 12/06/2022, 09/06/2022, 07/28/2022, 06/21/2022 TECHNIQUE: CT of the chest with intravenous contrast. Dose reduction techniques performed. FINDINGS: Evidence Technician: No pertinent findings, which are not already [...] Signed By: 03/02/23 1324 DD/ 1321 TD/TT: Sales Special Agent: [facility] HealthcareRadiology Study observation (narrative)NOMS HealthcareCT CHEST W CONTRASTOrdered By: Radiologist Radiology on 35-86-2541DWWM Healthcare Work Phone: afb Culture/Smearon 50-75-1539Rcdofobaqvcxc sp identified Org specific cx Nom (Unsp spec)NO MYCOBACTERIA ISOLATED.[facility] CenterMycobacterium sp identified Org specific cx Nom (Unsp spec)on 10-26-2248Iokdrbbqmxa observation Acid fast stain Nom (Unsp spec) NegativeUnFairfield Medical CenterFungal Culture/Smearon 62-35-9203Bxoefp identified Cx Nom (Unsp spec)NO FUNGI ISOLATED. [facility] CenterFugerald [facility] identified Cx Nom (Unsp spec)on 74-37-4894Dcrbfk identified Fungus stain Nom (Unsp spec)NegativeUnFairfield Medical CenterCYTOLOGY NON-SUPPLY SPECIALIST RESULTS on 90-19-3351Upxvtwwck Report Patient Name ALONA PATINO Date of [...] refer to concurrent biopsy surgical pathology report ([id number]). Oncology Registrar: Dr. Slava Mooney consulted on the S ans PAS fungus stain. B. BRONCHIAL TRIPLE [...] RAMANA Cardoso. Slide(s) initially screened by a Women Designer at [place] [address] Electronically Signed Out By RUTHY BAEZ MD By the signature on this report, the individual or group listed as making the Final Interpretation/Diagnosis certifies that they have reviewed this case. Slide(s) initially screened by a Women Designer at [facility] Diagnostic interpretation performed at [address] [place] [address] Rapid Evaluation Fine Needle Aspiration Immediate Read [...] - LEFT UPPER LOBE NODULE Pap stain Non-Melt Supervisor, Pap stain Non-Melt Supervisor, Diff-Quik stain Non-Melt Supervisor, Diff-Quik stain Non-Melt Supervisor, Diff-Quik stain Non-Melt Supervisor, CELL BLOCK, H&E, Initial, H GOMORI'S METHENAMINE SILVER, H ACID FAST BACILLI, ZIEHL-NEELSON, H RECUT H&E, H PAS-FUNGAL, H RECUT H&E B: BRONCHIAL TRIPLE NEEDLE BRUSH OF LEFT UPPER LOBE NODULE Pap stain Non-Melt Supervisor, Diff-Quik stain Non-Melt Supervisor, CELL BLOCK, H&E, Initial C: FINE NEEDLE ASPIRATION 4R LYMPH NODE Pap stain Non-Melt Supervisor, Diff-Quik stain Non-Melt Supervisor, CELL BLOCK, H&E, Initial D: FINE NEEDLE ASPIRATION 4L LYMPH NODE Pap stain Non-Melt Supervisor, Diff-Quik stain Non-Melt Supervisor, CELL BLOCK, H&E, Initial E: FINE NEEDLE ASPIRATION 7 LYMPH NODE Pap stain Non-Melt Supervisor, Diff-Quik stain Non-Melt Supervisor, CELL BLOCK, H&E, Initial F: FINE NEEDLE ASPIRATION 11L LYMPH NODE Pap stain Non-Melt Supervisor, Diff-Quik stain Non-Melt Supervisor, CELL BLOCK, H&E, Initial Gross Description A. [...] HAZY NEEDLE RINSE IN CYTOLYT WITH PARTICLES. [facility] Depa (more content not included)...[facility] HospitalSURGICAL PATHOLOGY RESULTSon 92-49-8341Icdttdbrs Report Name ALONA PATINO Pathologist: JUDIE WHITLEY [...] FIBRIN. SEE NOTE. --SEE CONCURRENT CYTOLOGY SPECIMEN [id number]. Note: Deeper levels were reviewed. The findings [...] Diagnostic interpretation performed at [facility] [address] [place] [address]. [place] [address] Clinical History: PIPER nodule Specimens Submitted As: A: PIPER NODULE TBBX Gross Description: Received in formalin, labeled with the patient s name and hospital number and PIPER nodule TBBX , are multiple minute pink-white, soft tissue fragments aggregating to 0.8 x 0.3 x 0.3 cm. The specimen is submitted in toto in one cassette. DMB dmb/09/06/2022 [facility] Department of Pathology [address] [address]Bacteria identified Cx Nom (Unsp spec)on 06-03-6260Kqwzjallgve observation Gram stain Nom (Unsp spec)1+ GRANULOCYTES. NO ORGANISMS SEEN.[facility] HospitalTissue/Wound Culture/Smearon 15-84-4159Xjipaggm identified Cx Nom (Unsp spec)NO GROWTH AEROBICALLY OR ANAEROBICALLY.[facility] Medical CenterAFB CULTURE/SM, MISCon 37-10-2404QSS CULTURE/SM, MISC PATIENT: ALONA PATINO LOCATION: KAI THOMPSON#: [id number] : [birth year] AGE: SEX: M ORDERED BY: JORGE BARRON SOURCE: BIOPSY COLLECTED: 09/06/22 17:00 ANTIBIOTICS AT PRICILA.: RECEIVED : 09/06/22 17:06 SITE: PIPER NODULE CORE R E S U L T S AFB SMEAR FINAL 09/07/22 13:05 ACID FAST SMEAR - NEGATIVE. AFB CULTURE/SM, MISC FINAL 10/25/22 14:36 NO MYCOBACTERIA ISOLATED.[facility] CenterComment on above: Performed By: #### AFBC #### [facility] [address] [place], [place] [address]Ktqrfodzqczlkf 68-78-5253Jpufd, Jorge Gamboa MD - 09/11/2022 Patient Name: Alona Patino Procedure Date: 09/06/2022 11:36 AM Date of : 1970 Room: Bronchoscopy Room 1 Attending MD: Jorge Braron MD, [id number] Procedure: Bronchoscopy Indications: Left upper lobe nodule Providers: Jorge Barron MD (Doctor), Michelle Borden RN (Nurse), Corinne Franco, Monogram Operator (Monogram Operator), Steven Mariscal MD (Fellow) Referring MD: [...] by the physician, the nurse and the plug and mold finisher in the procedure room at 11:36 AM. [...] no secretions. Electromagnetic navigation bronchoscopy utilizing the [employer] system with iLogic upgrade was performed. The [...] visible endoscopically. The samplin (more content not included)...[facility] Work Phone: bronchoscopyPATIENTNAME Patient Name: Alona Patino EXAMDATE Procedure Date: 09/06/2022 11:36 AM PATIENTID PATIENTACCOUNTNUM PATIENTDOB Date of : 1970 PATIENTROOM Room: Bronchoscopy Room 1 PROVDR Attending MD: Jorge Barron MD, [id number] ENDOPROCEDURENAME Procedure: Bronchoscopy INDICATION Indications: Left upper lobe nodule PRIMARYPROVIDER Providers: Jorge Barron MD (Doctor), Michelle Borden RN (Nurse), Corinne Franco, Monogram Operator (Monogram Operator), Steven Mariscal MD (Fellow) EDREFPROVIDER Referring [...] by the physician, the nurse and the plug and mold finisher in the procedure room at 11:36 AM. [...] no secretions. Electromagnetic navigation bronchoscopy utilizing the [employer] system with iLogic upgrade was performed. The [...] guided by fluoroscopy. Tr (more content not included)...[facility] CenterRadiology Study observation (narrative)[facility] Work Phone: bronchoscopyOrdered By: Jorge Barron on 09-06-2022 [facility] Work Phone: FUNGAL CULTURE/SM, MISCon 32-46-5682FXYFLJ CULTURE/SM, MISCPATIENT: ALONA PATINO LOCATION: [facility]#: [id number] : [birth year] AGE: SEX: M ORDERED BY: JORGE BARRON SOURCE: BIOPSY COLLECTED: 09/06/22 17:00 ANTIBIOTICS AT PRICILA.: RECEIVED : 09/06/22 17:05 SITE: PIPER NODULE CORE R E S U L T S FUNGAL SMEAR FINAL 09/07/22 10:54 FLUORESCENT FUNGAL STAIN: NEGATIVE FUNGAL CULTURE/SM, MISC FINAL 09/25/22 11:16 NO FUNGI ISOLATED.[facility] County Medical CenterComment on above:Performed By: #### FUNCS #### [facility] [address] [place], [place] [address]RZOQMYRTKVKGR CULT./SM.BACT.on 96-17-3212VFTNGLYXFWHKE CULT./SM.BACT.PATIENT: ALONA PATINO LOCATION: KAI THOMPSON#: [id number] : [birth year] AGE: SEX: M ORDERED BY: JORGE BARRON SOURCE: BIOPSY COLLECTED: 09/06/22 17:21 ANTIBIOTICS AT PRICILA.: RECEIVED : 09/06/22 17:21 SITE: PIPER NODULE CORE R E S U L T S GRAM STAIN FINAL 09/06/22 18:21 1+ GRANULOCYTES. NO ORGANISMS SEEN. MISCELLANEOUS CULT./SM.BACT. FINAL 09/08/22 08:50 NO GROWTH AEROBICALLY OR ANAEROBICALLY.[facility] County Medical CenterComment on above:Performed By: #### MISCC #### [facility] [address] [place], [place] [address]Wj Panel Informationon 09-06-2022 [email or web address]}[facility] Work Phone: [phone]-[facility] Work Phone: th CT CHEST without FOR HEATHER BRONC PLANNINGon 99-46-7025UL CT CHEST without FOR HEATHER BRONC PLANNINGMRN: [id number] Patient Name: ALONA PATINO STUDY: TH CT CHEST WITHOUT FOR HEATHER BRONC PLANNING; 09/06/2022 10:35 am INDICATION: Lung Nodule R91.1: Lung nodule. COMPARISON: None. ACCESSION NUMBER(S): [id number] ORDERING CLINICIAN: JORGE BARRON TECHNIQUE: Helical data [...] Mild coronary artery calcification. Electronically signed by: Donnie BELLHenderson County Community Hospital Cytologyon 83-42-5565AHP CytologyMRN: [id number] Patient Name ALONA PATINO Date of Procedure: [...] refer to concurrent biopsy surgical pathology report ([id number]). Oncology Registrar: Dr. Slava Mooney consulted on the GMS [...] RAMANA Cardoso. Slide(s) initially screened by a Women Designer at [place] [address] Electronically Signed Out By RUTHY BAEZ MD By the signature on this report, the individual or group listed as making the Final Interpretation/Diagnosis certifies that they have reviewed this case. Slide(s) initially screened by a Women Designer at [facility] Diagnostic interpretation performed at [address] [place] [address] Rapid Evaluation Fine Needle Aspiration Immediate Read [...] - LEFT UPPER LOBE NODULE Pap stain Non-Melt Supervisor, Pap stain Non-Melt Supervisor, Diff-Quik stain Non-Melt Supervisor, Diff-Quik stain Non-Melt Supervisor, Diff-Quik stain Non-Melt Supervisor, CELL BLOCK, H AND E, Initial, H GOMORI'S METHENAMINE SILVER, H ACID FAST BACILLI, ZIEHL-NEELSON, H RECUT H AND E, H PAS-FUNGAL, H RECUT H AND E B: BRONCHIAL TRIPLE NEEDLE BRUSH OF LEFT UPPER LOBE NODULE Pap stain Non-Melt Supervisor, Diff-Quik stain Non-Melt Supervisor, CELL BLOCK, H AND E, Initial C: FINE NEEDLE ASPIRATION 4R LYMPH NODE Pap stain Non-Melt Supervisor, Diff-Quik stain Non-Melt Supervisor, CELL BLOCK, H AND E, Initial D: FINE NEEDLE ASPIRATION 4L LYMPH NODE Pap stain Non-Melt Supervisor, Diff-Quik stain Non-Melt Supervisor, CELL BLOCK, H AND E, Initial E: FINE NEEDLE ASPIRATION 7 LYMPH NODE Pap stain Non-Melt Supervisor, Diff-Quik stain Non-Melt Supervisor, CELL BLOCK, H AND E, Initial F: FINE NEEDLE ASPIRATION 11L LYMPH NODE Pap stain Non-Melt Supervisor, Diff-Quik stain Non-Melt Supervisor, CELL BLOCK, H AND E, Initial Gross [...] HAZY NEEDLE RINSE IN CYTOLYT WITH PARTICLES. [facility] Department of Patholo (more content not included)...[facility] County Medical CenterComment on above:Performed By: #### C #### [facility] Cytology [address] [place] [id number] Surgical Pathology Departmenton 08-00-4863XIF Surgical Pathology DepartmentName ALONA PATINO Pathologist: JUDIE WHITLEY MD Date of Procedure: 09/06/2022 Date Received: 09/06/2022 Date Reported 09/12/2022 Submitting Physician: JORGE BARRON MD Location: [place] Copy To/Referring/Attending: ARLETH ESPINO, DO Other External # FINAL DIAGNOSIS LUNG, LEFT UPPER LOBE NODULE, TRANSBRONCHIAL BIOPSY: --FRAGMENTS OF ALVEOLATED LUNG PARENCHYMA WITH INTERSTITIAL FIBROSIS AND PATCHY CHRONIC INFLAMMATION ADMIXED WITH BLOOD AND FIBRIN. SEE NOTE. --SEE CONCURRENT CYTOLOGY SPECIMEN [id number]. Note: Deeper levels were reviewed. The findings are nonspecific. Clinical correlation with regards to adequacy of sampling is recommended. sherryw The gross and/or microscopic findings were reviewed in conjunction with pathology resident, Lucia Leal M.D., PhD. Electronically Signed Out By JUDIE WHITLEY MD/HALIE By the signature on this report, the individual or group listed as making the Final Interpretation/Diagnosis certifies that they have reviewed this case. Diagnostic interpretation performed at [address] [place] [id number] Clinical History: PIPER nodule Specimens Submitted As: A: PIPER NODULE TBBX Gross Description: Received in formalin, labeled with the patient?s name and hospital number and PIPER nodule TBBX , are multiple minute pink-white, soft tissue fragments aggregating to 0.8 x 0.3 x 0.3 cm. The specimen is submitted in toto in one cassette. DMB dmb/09/06/2022 [facility] Department of Pathology [address] [place], [place] [address]H[facility]ep[facility] County Medical CenterComment on above:Performed By: #### [facility] #### [facility] Surgical Pathology Department [address] [facility] [address]Cgvadoh Visit (Pulmonary Medicine)on 76-42-2064Dymlfij Visit (Pulmonary Medicine)Diagnoses/Problems Lung nodule (793.11) (R91.1) [...] is a 52 year old male (former gtxriw64 pack years ) here for initial evaluation [...] visiting the Pulmonary clinic today! Jennifer Sykes CENTRIFUGAL OPERATOR [phone] History of Present Illness Patient's visit was converted to a telephone visit given current COVID- 19 pandemic. Mr. Patino is a 52 year old male (former osenip68 pack years ) here for initial evaluation [...] History: Mom - COPD/ CVA Father - MS Brother - esophageal cancer/ liver cancer/ blood [...] directly with patient/family/careg (more content not included)... [facility] TouchworksPET CT SKULL BASE MID THIGHon 88-35-8537THS CT SKULL BASE MID THIGHNOHIOHEALTH MEDICINE PET/CT HISTORY: Solitary pulmonary nodule. COMPARISON: [...] Electronically authenticated by: NAIF TITUS Date: 2022-07-31 08:54German HospitalFUNGAL CULTUREon 07-05-1663Teancn StainFinal reportNoMemorial Health SystemComment on above:Performed By: #### CXFUN #### [facility] [address] [place] [address] Dr. Hamida MendezPerformed By: #### HISTDID #### [facility] [address] [place] [address] Dr. Hamida Martinez 1CommentGerman HospitalComment on above:Result Comment: CHIQUITA/Calcofluor preparation: no fungus observed.Performed By: #### CXFUN #### [facility] [address] [place] [address] Dr. Hamida MendezPerformed By: #### HISTDID #### [facility] [address] [place] [address] Dr. Hamida MendezACID FAST SMEAR AND CXon 10-52-6216Mtgf Fast SmearNegativeNormal [facility] Shriners HospitalComment on above:Performed By: #### CVDTBH #### [facility] [address] [place] [address] Dr. Hamida Altman Specimen ProcessingConcentraMercy Health Lorain Hospital Comment on above:Performed By: #### CVDTBH #### [facility] [address] [place] [address] Dr. Hamida MendezCULTURE OTHERon 08-78-1275UJGOGPP OTHERCulture Observations: NO GROWTH AT 48 HOURS.German HospitalComment on above:Performed By: #### CVDTBH #### [facility] [address] [place] [address] Dr. Hamida CamargoOLOGYon 66-11-9725ECAL TO REF LAB07/10/2022German HospitalComment on above:Performed By: #### CVDTBH #### [facility] [address] [place] [address] Dr. Hamida Knapp STAINon 28-86-3095LENMQXLXZQ ORGANISMS [facility] Mary HospitalComment on above:Performed By: #### CCPAB #### [facility] [address] [place] [address] Dr. Hamida TorresPHHUNTEROIDSGerman HospitalComchelsea hospital on above:Performed By: #### CCPAB #### [facility] [address] [place] [address] Dr. Hamida HainesLIDetwiler Memorial HospitalComchelsea hospital on above:Performed By: #### CCPAB #### [facility] [address] [place] [address] Dr. Hamida TalaveraNGIRENE ELEMENTSGerman HospitalComchelsea hospital on above: Performed By: #### CCPAB #### [facility] [address] [place] [address] Dr. Hamida Knapp NEG [facility]tering Health TroyComment on above: Performed By: #### CCPAB #### [facility] [address] [place] [address] [address] Hamida Knapp NEG DIPPLOCOCCIGerman HospitalComment on above: Performed By: #### CCPAB #### [facility] [address] [address] [address] Hamida Knapp POS BACILLINoMemorial Health SystemComment on above: Performed By: #### CCPAB #### [facility] [address] [address] [address] Hamida Knapp POSITIVE COCCINoMemorial Health SystemComment on above: Performed By: #### CCPAB #### [facility] [address] [address] [address] Hamida Knapp STAIN SOURCELt Upper Lobe LavageGerman Hospital Comment on above:Performed By: #### CCPAB #### [facility] [address] [address] [address] Hamida Kincaid_DIPTHGerman HospitalComment on above:Performed By: #### CCPAB #### [facility] [address] [address] [address] Hamida MendezWBCNONE SEENGerman HospitalComment on above:Performed By: #### CCPAB #### [facility] [address] [address] [address] Hamida MendezXR CHEST 1 Von [id number] CHEST 1 VEXAMINATION: XR CHEST 1 V, [...] Electronically authenticated by: TEGAN PAREDES Date: 2022-07-10 08:[address] [place], [place] [address]Covid-19 PCR (CVDTBH)on [id number]-CoV-2 (COVID-19) RNA DORA+probe Ql (Unsp spec)Not detectedNormalNOT DETECTEDThe [facility] Comment on above:Result Comment: This test is not yet approved or cleared by the [place] FDA. When there are no FDA-approved or cleared tests available, and other criteria are met, FDA can make tests available under an emergency access mechanism called an Emergency Use Authorization (EUA). The EUA for this test is supported by the Closing Machine Operator of Health and Human Service's (HHS's) declaration [...] and symptoms consistent with SARS-CoV-2.Performed By: #### CVDTB #### [facility] [address] [place] [address] Dr. Hamida Albarran IGG/IGM AB BY IFAon [id number] Ab, IgG EIA 0.6 EIA UnitsGerman HospitalComment on above:Result Comment: Negative <1.0 Indeterminate 1.0-1.4 Positive >1.4Performed By: #### CVDTBH #### [facility] [address] [place] [address] Dr. Hamida Albarran Ab, IgM, EIA0.2 EIA UnitsGerman Hospital Comment on above:Result Comment: Negative <1.0 Indeterminate 1.0-1.4 Positive >1.4Performed By: #### CVDTBH #### [facility] [address] [place] [address] Dr. Hamida MendezHISMADELEINE GALACTOMANNAN AG URINEon [id number] Gal'jp Ag<0.5Normal<0.5 ng/mLThe Marion HospitalComment on above:Performed By: #### CCPAB #### [facility] [address] [place] [address] Dr. Hamida MendezFUNGAL AB QUANTITAIVE DOUBLE IMMUNODIFFUon 04-97-0144Fpqjksnizij flavusNegativeNormalNeg:<1:1The Marion HospitalComment on above:Performed By: #### CCPAB #### [facility] [address] [place] [address] Dr. Hamida Horowitzillus fumigatusNegativeNormalNeg:<1:1[facility] Comment on above:Performed By: #### CCPAB #### [facility] [address] [place] [address] Dr. Hamida Horowitzillus nigerNegativeNormalNeg:<1:1[facility] Comment on above:Performed By: #### CCPAB #### [facility] [address] [place] [address] Dr. Hamida MendezBlastomycesNegativeNormalNeg:<1:1The Marion HospitalComment on above:Performed By: #### CCPAB #### [facility] [address] [place] [address] Dr. Hamida MitchellTOPLASMA CAP AB QUANT DIDon [id number] Mycelial CF Ab.NegativeNormalNeg:<1:2The Marion HospitalComment on above:Performed By: #### HISTDID #### [facility] [address] [place] [address] Dr. Hamida Hoffmann Yeast CF AbNegativeNormalNeg:<1:2[facility] Shriners HospitalComment on above:Performed By: #### HISTDID #### [facility] [address] [place] [address] Dr. Hamida MendezQUANTIFERON TB GOLD PLUSon 31-18-2391EbxnavNHLMA CriteriaComment NormalCincinnati Shriners HospitalComment on above:Result Comment: QuantiFERON-TB Gold Plus [...] for the test.Performed By: #### QNTTB #### [facility] [address] [place] [address] Dr. Hamida Carpio IncubationIncubation performed.NormalCincinnati Shriners HospitalComment on above:Performed By: #### QNTTB #### [facility] [address] [place] [address] Dr. Hamida Carpio Mitogen Value>10.00NoMemorial Health SystemComment on above:Performed By: #### QNTTB #### [facility] [address] [place] [address] Dr. Hamida Carpio Nil Value0.03 IU/mLNormalCincinnati Shriners HospitalComment on above:Performed By: #### QNTTB #### [facility] [address] [place] [address] Dr. Hamida Carpio TB1 Ag Value0.05 IU/mLNCleveland Clinic Children's Hospital for Rehabilitation Comment on above:Performed By: #### QNTTB #### [facility] [address] [place] [address] Dr. Hamida Carpio TB2 Ag Value0.04 IU/mLNCleveland Clinic Children's Hospital for Rehabilitation Comment on above:Performed By: #### QNTTB #### [facility] [address] [place] [address] Dr. Hamida Carpio-TB Gold PlusNegativeNormalNegativeHarrison Community Hospital on above:Result Comment: No response to M tuberculosis antigens detected. Infection with M tuberculosis is unlikely, but high risk individuals should be considered for additional testing (ATS/IDSA/CDC Clinical Practice Guidelines, 2017). The reference range is an Antigen minus Nil result of <0.35 IU/mL. Chemiluminescence immunoassay methodologyPerformed By: #### QNTTB #### [facility] [address] [place] [address] Dr. Hamida ReidOTENSION-CONVERTING ENZYME (ANTOINETTE)on [id number] U/LNormal 14-82[facility] on above:Performed By: #### CCPAB #### [facility] [address] [place] [address] Dr. Hamida Zamora NEUTROPHIL CYTOPLASMIC AB (ANCA) PRon 99-83-6631Ckpd-MPO Antibodies<0.5Rxbfhe6.0-0.9[facility] on above:Result Comment: Performed at: BNPerformed By: #### ANCAP #### [facility] [address] [place] [address] Dr. Hamida Zamora-PR3 Antibodies<0.8Ogxwvw2.0-0.9[facility] on above:Result Comment: Performed at: BNPerformed By: #### ANCAP #### [facility] [address] [place] [address] Dr. Hamida MendezAtypical pANCA<1:20NormalNeg:<1:20ThGrant HospitalComment on above:Result Comment: The atypical pANCA pattern has been observed in a significant percentage of patients with ulcerative colitis, primary sclerosing cholangitis and autoimmune hepatitis. Performed at: CBPerformed By: #### ANCAP #### [facility] [address] [place] [address] Dr. Hamida MendezCytoplasmic (C-ANCA)<1:20NormalNeg:<1:20ThGrant Hospital Comment on above:Result Comment: Performed at: CBPerformed By: #### ANCAP #### [facility] [address] [place] [address] Dr. Hamida MendezPerinuclear (P-ANCA)<1:20NormalNeg:<1:20ThGrant Hospital Comment on above:Result Comment: The presence of positive fluorescence exhibiting P-ANCA or C-ANCA patterns alone is not specific for the diagnosis of John's Granulomatosis (WG) or microscopic polyangiitis. Decisions about treatment should not be based solely on ANCA IFA results. The International ANCA Group Consensus recommends follow up testing of positive sera with both KY-3 and MPO-ANCA enzyme immunoassays. As many as 5% serum samples are positive only by EIA. Ref. AM J Clin Pathol 1999;111:507-513. Performed at: CBPerformed By: #### ANCAP #### [facility] [address] [place] [address] Dr. Hamida MendezANTISCLERODERMA ABon [id number]-70 Antibodies<0.2 Normal0.0-0.9The Marion HospitalComment on above:Performed By: #### CCPAB #### [facility] [address] [place] [address] Dr. Hamida MendezCYCLIC CITRULLINATED PEPTIDE AB (CCP)on 91-98-6993AYS Antibodies IgG/IgA5 unitsNormal0-19The [facility] HospitalComment on above:Result Comment: Negative <20 Weak positive 20 - 39 Moderate positive 40 - 59 Strong positive >59Performed By: #### CCPAB #### [facility] [address] [place] [address] Dr. Hamida MendezRHEUMATOID FACTORon 41-67-8195LL Latex Turbid.<10.0Normal<14.0[facility] Shriners HospitalComment on above:Performed By: #### CCPAB #### [facility] [address] [place] [address] Dr. Hamida MendezSED RATE WESTERGRENon 88-20-1596TRE RATE47 mm/hrCritically high <=20The [facility] HospitalComment on above:Performed By: #### CVDTBH #### [facility] [address] [place] [address] Dr. Hamida MendezCT LUNG CANCER SCREENINGon [id number] LUNG CANCER SCREENING EXAMINATION: CT LUNG CANCER [...] Electronically authenticated by: DOT JOSEPH Date: 2022-06-21 15:09German HospitalHEMOGLOBINon 53-04-7565Joaxfyowtn (Bld) [Mass/Vol]14.4 g/dL Ajlufj49.0-18.0The Marion HospitalComment on above:Performed By: #### CVDTBH #### [facility] [address] [place] [address] Dr. Hamida Escamilla AUTO DIFFon 92-48-4746YWJW #0.0 103/ulNormal0.0-0.1The [facility] HospitalComment on above:Performed By: #### HISTDID #### [facility] [address] [place] [address] Dr. Hamida MendezBasophils/100 WBC (Bld)0.0 %Critically low0.2-2.0The [facility] Medical Centerment on above:Performed By: #### HISTDID #### [facility] [address] [place] [address] Dr. Hamida Snow #0.4 103/ulNormal0.0-0.7The [facility] HospitalComment on above: Performed By: #### HISTDID #### [facility] [address] [place] [address] Dr. Hamida Godinezosinophils/100 WBC (Bld)7.2 %Critically high0.9-7.0The Marion HospitalComment on above:Performed By: #### HISTDID #### [facility] [address] [place] [address] Dr. Hamida Godinezrythrocyte distribution width (RBC) [Ratio]13.1 %Wrdizx28.0-15.0 The Marion HospitalComment on above:Performed By: #### HISTDID #### [facility] [address] [place] [address] Dr. Hamida MendezHematocrit (Bld) [Volume fraction]46.9 %Dzdgoa32.0-54.0The [facility] HospitalComment on above:Performed By: #### HISTDID #### [facility] [address] [place] [address] Dr. Hamida MendezHemoglobin (Bld) [Mass/Vol]15.4 g/rZOkbait01.0-18.0The [facility] HospitalComchelsea hospital on above:Performed By: #### HISTDID #### [facility] [address] [place] [address] Dr. Hamida Romero #0.01 10e3/ulNormal0.00-0.03The [facility] HospitalComment on above:Performed By: #### HISTDID #### [facility] [address] [place] [address] Dr. Hamida Romero %0.2 %Normal0.0-0.5The [facility] HospitalComment on above: Performed By: #### HISTDID #### [facility] [address] [place] [address] Dr. Hamida Hudson #1.5 103/ulNormal1.2-3.8The [facility] HospitalComment on above:Performed By: #### HISTDID #### [facility] [address] [place] [address] Dr. Hamida Welshmphocytes/100 WBC (Bld)27.5 %Qkuigu03.5-60.0The [facility] HospitalComment on above:Performed By: #### HISTDID #### [facility] [address] [place] [address] Dr. Hamida Billings DIFF REQNONormalThe Marion HospitalComment on above: Performed By: #### HISTDID #### [facility] [address] [place] [address] Dr. Hamida Marino (RBC) [Entitic mass]30.9 rgUtlnrp97.9-34.0The [facility] HospitalComment on above:Performed By: #### HISTDID #### [facility] [address] [place] [address] Dr. Hamida Marino (RBC) [Mass/Vol]32.8 g/hAPpnrwg10.9-35.2The [facility] HospitalComment on above:Performed By: #### HISTDID #### [facility] [address] [place] [address] Dr. Hamida Marino (RBC) [Entitic vol]94.2 fLCritically high80.0-94.0The [facility] HospitalComment on above:Performed By: #### HISTDID #### [facility] [address] [place] [address] Dr. Hamida Ware #0.4 103/ulNormal0.3-0.8The [facility] HospitalComment on above:Performed By: #### HISTDID #### [facility] [address] [place] [address] Dr. Hamida Milnerocytes/100 WBC (Bld)7.2 %Normal1.7-12.0[facility] Comment on above:Performed By: #### HISTDID #### [facility] [address] [place] [address] Dr. Hamida Talavera #3.2 103/ulNormal1.4-6.5The [facility] Centerment on above:Performed By: #### HISTDID #### [facility] [address] [place] [address] Dr. Hamida Toussaintutrophils/100 WBC (Bld)57.9 %Okiyxt42.0-75.0The [facility] Centerment on above:Performed By: #### HISTDID #### [facility] [address] [place] [address] Dr. Hamida MendezPlatelet mean volume (Bld) [Entitic vol]8.8 fLCritically low 9.5-13.5The [facility] on above:Performed By: #### HISTDID #### [facility] [address] [place] [address] Dr. Hamida MendezPLT261 103/jlJmsnni826-878Zxo [facility] on above: Performed By: #### HISTDID #### [facility] [address] [place] [address] Dr. Hamida MendezRBC4.98 106/ulNormal4.70-6.10The [facility] on above:Performed By: #### HISTDID #### [facility] [address] [place] [address] Dr. Hamida MendezWBC5.6 103/ulNormal4.0-11.0The [facility] HospitalComment on above: Performed By: #### HISTDID #### [facility] [address] [place] [address] Dr. Hamida Albert T3on 30-99-3550MZOL T32.19 pg/mlLNormal2.18-3.98The [facility] on above:Performed By: #### CVDTBH #### [facility] [address] [place] [address] Dr. Hamida Albert T4on 61-64-2338Ngma T4 [Mass/Vol]1.13 ng/dLNormal0.76-1.46 The [facility] on above:Performed By: #### CCPAB #### [facility] [address] [address] [address] Hamida MendezGLYCOHEMOGLOBIN A1Con 46-59-8383EGV RECOMMENDATIONSEE BELOWTrinity Health System West Campus on above:Result Comment: ADA RECOMMENDED LIMIT 4.0 - 6.0 ADA THERAPEUTIC TARGET < 7.0 ACTION SUGGESTED > 7.0Performed By: #### CCPAB #### [facility] [address] [place] [address] Dr. Hamida MendezGlucose [Mass/Vol]105 mg/dLSelect Medical Specialty Hospital - Trumbull on above:Performed By: #### CCPAB #### [facility] [address] [place] [address] Dr. Hamida MendezHbA1c (Bld) [Mass fraction]5.3 %Normal4.5-6.2[facility] on above:Performed By: #### CCPAB #### [facility] [address] [place] [address] Dr. Hamida MendezLIPID PROFILEon 51-81-0045MNBA-HDL RATIO NORMSEE BELOWGerman HospitalComchelsea hospital on above:Result Comment: 3.3 - 4.4 LOW RISK 4.4 - 7.1 AVERAGE RISK 7.1 - 11.0 MODERATE RISK >11.0 HIGH RISKPerformed By: #### BMP, TSH, LIVER, LIPID, FT3 #### [facility] [address] [place] [address] Dr. Hamida MendezCholesterol [Mass/Vol]211 mg/dLCritically high<=200The [facility] on above:Performed By: #### BMP, TSH, LIVER, LIPID, FT3 #### [facility] [address] [place] [address] Dr. Hamida MendezCholesterol in HDL [Mass/Vol]69 mg/dLCritically scyf07-49Lev [facility] on above:Performed By: #### BMP, TSH, LIVER, LIPID, FT3 #### [facility] [address] [place] [address] Dr. Hamida Manningesterol in LDL [Mass/Vol]126.2 mg/dLGerman HospitalComment on above:Performed By: #### BMP, TSH, LIVER, LIPID, FT3 #### [facility] [address] [address] [address] Hamida Bundy.total/Cholesterol in HDL [Mass ratio]3.1 {ratio} NormalCincinnati Shriners HospitalComchelsea hospital on above:Performed By: #### BMP, TSH, LIVER, LIPID, FT3 #### [facility] [address] [address] [address] Hamida Vizcarra NORMAL> or = 60 mg/dl - LOW CARDIOVASCULAR RISK <40 mg/dl - HIGH CARDIOVASCULAR RISKGerman HospitalComchelsea hospital on above:Performed By: #### BMP, TSH, LIVER, LIPID, FT3 #### [facility] [address] [address] [address] Hamida MendezLDL CALC NORMALSEE BELOWGerman HospitalComment on above:Result Comment: <100 mg/dl OPTIMAL 100 - 129 mg/dl NEAR OR ABOVE OPTIMAL 130 - 159 mg/dl BORDERLINE HIGH 160 - 189 mg/dl HIGH >190 mg/dl VERY HIGH Performed By: #### BMP, TSH, LIVER, LIPID, FT3 #### [facility] [address] [address] [address] Hamida MendezTriglyceride [Mass/Vol]79 mg/dLNormal<=150[facility] Comment on above:Performed By: #### BMP, TSH, LIVER, LIPID, FT3 #### [facility] [address] [address] [address] Hamida MendezVLDL CALC15.8 mg/dLGerman HospitalComchelsea hospital on above: Performed By: #### BMP, TSH, LIVER, LIPID, FT3 #### [facility] [address] [address] [address] Hamida Guerrero PROFILEon 76-59-5498Lfwkemp [Mass/Vol]3.4 g/dLNormal3.4-5.0 [facility] on above:Performed By: #### BMP, TSH, LIVER, LIPID, FT3 #### [facility] [address] [place] [address] Dr. Hamida MendezAlbumin/Globulin [Mass ratio]0.8 {ratio}NormalThe [facility] on above:Performed By: #### BMP, TSH, LIVER, LIPID, FT3 #### [facility] [address] [place] [address] Dr. Hamida Rodriges [Catalytic activity/Vol]83 U/IMydacs28-228Vci [facility] Centerment on above:Performed By: #### BMP, TSH, LIVER, LIPID, FT3 #### [facility] [address] [place] [address] Dr. Hamida Back [Catalytic activity/Vol]14 U/LCritically wmw56-51Lwy [facility] Centerment on above:Performed By: #### BMP, TSH, LIVER, LIPID, FT3 #### [facility] [address] [place] [address] Dr. Hamida Denney [Catalytic activity/Vol]12 U/LCritically zsj58-93Kxb [facility] on above:Performed By: #### BMP, TSH, LIVER, LIPID, FT3 #### [facility] [address] [place] [address] Dr. Hamida JiménezI, CONJUGATED0.1 mg/dLNormal0.0-0.2[facility] Comment on above:Performed By: #### BMP, TSH, LIVER, LIPID, FT3 #### [facility] [address] [place] [address] Dr. Hamida Jiménezirubin [Mass/Vol]0.4 mg/dLNormal0.2-1.0[facility] Comment on above:Performed By: #### BMP, TSH, LIVER, LIPID, FT3 #### [facility] [address] [place] [address] Dr. Hamida MendezGlobulin (S) [Mass/Vol]4.2 g/dLNormalThe [facility] HospitalComment on above:Performed By: #### BMP, TSH, LIVER, LIPID, FT3 #### [facility] [address] [address] [address] Hamida MendezProtein [Mass/Vol]7.6 g/dLNormal6.4-8.2[facility] Comment on above:Performed By: #### BMP, TSH, LIVER, LIPID, FT3 #### [facility] [address] [address] [address] Hamida MendezPROF CHEM 8 (BAS METB)on 94-07-0107Sruhr gap [Moles/Vol]4.7 mmol/LNormalThe [facility] HospitalComment on above:Performed By: #### BMP, TSH, LIVER, LIPID, FT3 #### [facility] [address] [place] [address] Dr. Hamida MendezCalcium [Mass/Vol]9.1 mg/dLNormal8.5-10.1[facility] Comment on above:Performed By: #### BMP, TSH, LIVER, LIPID, FT3 #### [facility] [address] [place] [address] Dr. Hamida MendezChloride [Moles/Vol]101 mmol/EQsvohs99-173Sii [facility] Comment on above:Performed By: #### BMP, TSH, LIVER, LIPID, FT3 #### [facility] [address] [address] [address] Hamida MendezCO2 [Moles/Vol]33.4 mmol/LCritically high21.0-32.0The [facility] HospitalComment on above:Performed By: #### BMP, TSH, LIVER, LIPID, FT3 #### [facility] [address] [place] [address] Dr. Hamida MendezCreatinine [Mass/Vol]0.87 mg/dLNormal0.70-1.30The [facility] on above:Performed By: #### BMP, TSH, LIVER, LIPID, FT3 #### [facility] [address] [place] [address] Dr. Mei ChangEGFR-AF CITIZEN OF [place]>60Normal>=60The Estephanie HospitalComment on above:Performed By: #### BMP, TSH, LIVER, LIPID, FT3 #### [facility] [address] [address] [address] Hamida GodinezGFR-NON AF CITIZEN OF [place]>60Normal>=60The [facility] Centerment on above:Performed By: #### BMP, TSH, LIVER, LIPID, FT3 #### [facility] [address] [address] [address] Hamida MendezGlucose [Mass/Vol]101 mg/kBYsgahy84-995WvhCincinnati Shriners Hospital Comment on above:Performed By: #### BMP, TSH, LIVER, LIPID, FT3 #### [facility] [address] [place] [address] Dr. Hamida MendezPotassium [Moles/Vol]4.1 mmol/LNormal3.5-5.1[facility] Comment on above:Performed By: #### BMP, TSH, LIVER, LIPID, FT3 #### [facility] [address] [place] [address] Dr. Hamida MendezSodium [Moles/Vol]135 mmol/LCritically dng273-294Ajl [facility] on above:Performed By: #### BMP, TSH, LIVER, LIPID, FT3 #### [facility] [address] [place] [address] Dr. Hamida MendezUrea nitrogen [Mass/Vol]9.0 mg/dLNormal7.0-18.0The [facility] HospitalComment on above:Performed By: #### BMP, TSH, LIVER, LIPID, FT3 #### [facility] [address] [place] [address] Dr. Hamida Moore nitrogen/Creatinine [Mass ratio]10.3 mg/mgNormalThe [facility] HospitalComchelsea hospital on above:Performed By: #### BMP, TSH, LIVER, LIPID, FT3 #### [facility] [address] [place] [address] Dr. Hamida Littlejohn 34-94-9970XVV1.960 uIU/mLNormal0.358-3.740The [facility] HospitalComment on above:Performed By: #### BMP, TSH, LIVER, LIPID, FT3 #### [facility] [address] [address] [address] Hamida MendezVITAMIN D 25 OHon 74-51-7299VVW D 25-OH25.6 ng/mLNormalCincinnati Shriners HospitalComchelsea hospital on above:Performed By: #### CCPAB #### [facility] [address] [place] [address] Dr. Hamida West D RANGESSEE [facility] Cr[facility] HospitalComment on above: Result Comment: <20 ng/mL Vit D deficient 20 - <30 ng/mL Vit D insufficient 30 - 100 ng/mL Vit D sufficient >100 ng/mL Potential ToxicityPerformed By: #### CCPAB #### [facility] [address] [place] [address] Dr. Hamida MendezPhysician Referralon 10-98-4469Dywwqpurj Referral [id number]#[id number]:127The Christ HospitalA1C with Estimated Average Gluon 38-64-8101Jcninse [Mass/Vol]111 mg/dL [facility] CenterComment on above:Order Comment: Reason for Exam Hypothyroidism, unspecified type Reason for Exam Hyperlipidemia, unspecifiedResult Comment: PERFORMED BY: [place] [address] PATHOLOGIST MANAGER BUSINESS MANAGEMENT CHANDRAKANT ZARCO M.D.Performed By: #### CMP, LIPID, THYROID SC, SCAN CBC #### [place] [address] MKFZaD9v (Bld) [Mass fraction]5.5 %Normal4.3-5.6FUniversity Hospitals Portage Medical CenterComment on above:Order Comment: Reason for Exam Hypothyroidism, unspecified type Reason for Exam Hyperlipidemia, unspecifiedResult Comment: Increased risk for diabetes: 5.7 - 6.4 diabetes: >6.4 glycemic control for adults with diabetes: <7.0Performed By: #### CMP, LIPID, THYROID SC, SCAN CBC #### [facility] [address] [place] [address] USACOVID-19 Antigenon [id number]-19 AntigenHealthcare Worker?: N Baudilio Reference Baudilio Reference [...] its performance Baudilio Disclaimer characteristic determined by [employer] and Baudilio Disclaimer validated at [facility]. This Baudilio Disclaimer test has not [...] is terminated or revoked sooner. PERFORMED BY: [place] [address] PATHOLOGIST MANAGER BUSINESS MANAGEMENT CHANDRAKANT ZARCO M.D.NormalMemorial Health System Selby General HospitalComment on above: Performed By: #### COVID-19 BAUDILIO, SOFIANEG #### [place] [id number] USASofia Ag Negativeon 74-91-9109Lrxlo Ag NegativeNegative NormalNegativeMemorial Health System Selby General HospitalComment on above:Result Comment: This is a duplicate Baudilio SARS Antigen (LYDIA) result to be used for statistical tracking purpose only. PERFORMED BY: [place] [address] PATHOLOGIST MANAGER BUSINESS MANAGEMENT CHANDRAKANT ZARCO M.D.Performed By: #### COVID-19 BAUDILIO, SOFIANEG #### [facility] [address] [place], [place] [id number] USAComplete Blood Count Auto Diffon [id number] (Bld) [#/Vol]0.0 10*3/uLNormal0.0-0.2FUniversity Hospitals Portage Medical CenterComment on above:Order Comment: Reason for Exam Tobacco use;Dyslipidemia;Encounter for screening for malignaResult Comment: PERFORMED BY: [place] [address] PATHOLOGIST MANAGER BUSINESS MANAGEMENT CHANDRAKANT ZARCO M.D.Performed By: #### LIPID, TSH3 wRFLX, CMP, CBC #### [facility] [address] [place] [address] USABasophils/100 WBC (Bld)0.5 %Normal.[facility] HospitalComment on above:Order Comment: Reason for Exam Tobacco use;Dyslipidemia;Encounter for screening for malignaPerformed By: #### LIPID, TSH3 wRFLX, CMP, CBC #### [place] [address] USAEosinophils (Bld) [#/Vol]0.4 10*3/uLNormal0.0-0.45 [facility] HospitalComment on above:Order Comment: Reason for Exam Tobacco use;Dyslipidemia;Encounter for screening for malignaPerformed By: #### LIPID, TSH3 wRFLX, CMP, CBC #### [facility] [address] [place], [place] [id number] USAEosinophils/100 WBC (Bld)5.0 %Normal.[facility] HospitalComment on above:Order Comment: Reason for Exam Tobacco use;Dyslipidemia;Encounter for screening for malignaPerformed By: #### LIPID, TSH3 wRFLX, CMP, CBC #### [facility] [address] [place], [place] [id number] USAErythrocyte distribution width (RBC) [Ratio]13.7 %Normal 12.0-14.8[facility] HospitalComment on above:Order Comment: Reason for Exam Tobacco use;Dyslipidemia;Encounter for screening for malignaPerformed By: #### LIPID, TSH3 wRFLX, CMP, CBC #### [facility] [address] [place] [address] USAHematocrit (Bld) [Volume fraction]43.7 %Jmqrsa79.8-50.0 [facility] HospitalComment on above:Order Comment: Reason for Exam Tobacco use;Dyslipidemia;Encounter for screening for malignaPerformed By: #### LIPID, TSH3 wRFLX, CMP, CBC #### [facility] [address] [place] [address] USAHemoglobin (Bld) [Mass/Vol]15.0 g/yMZnkmro82.0-17.0 [facility] HospitalComment on above:Order Comment: Reason for Exam Tobacco use;Dyslipidemia;Encounter for screening for malignaPerformed By: #### LIPID, TSH3 wRFLX, CMP, CBC #### [facility] [address] [place] [address] USALymphocytes (Bld) [#/Vol]2.0 10*3/uLNormal1.00-4.8 [facility] HospitalComment on above:Order Comment: Reason for Exam Tobacco use;Dyslipidemia;Encounter for screening for malignaPerformed By: #### LIPID, TSH3 wRFLX, CMP, CBC #### [facility] [address] [place] [id number] USALymphocytes/100 WBC (Bld)27.1 %Normal.[facility] HospitalComment on above:Order Comment: Reason for Exam Tobacco use;Dyslipidemia;Encounter for screening for malignaPerformed By: #### LIPID, TSH3 wRFLX, CMP, CBC #### [facility] [address] [place] [address] [facility] ([facility]BC) [Entitic mass]32.5 uyMwesvw85.5-35.2FUniversity Hospitals Portage Medical CenterComment on above:Order Comment: Reason for Exam Tobacco use;Dyslipidemia;Encounter for screening for malignaPerformed By: #### LIPID, TSH3 wRFLX, CMP, CBC #### [facility] [address] [place] [address] USAV (RBC) [Entitic vol]94.7 uKTvmhgy79.5-101[facility] HospitalComment on above:Order Comment: Reason for Exam Tobacco use;Dyslipidemia;Encounter for screening for malignaPerformed By: #### LIPID, TSH3 wRFLX, CMP, CBC #### [facility] [address] [place] [address] USAMean Corpuscular HGB Conc34.3 g/bGGmtaly02.5-35.6FUniversity Hospitals Portage Medical CenterComment on above:Order Comment: Reason for Exam Tobacco use;Dyslipidemia;Encounter for screening for malignaPerformed By: #### LIPID, TSH3 wRFLX, CMP, CBC #### [facility] [address] [place] [address] USAMonocytes (Bld) [#/Vol]0.4 10*3/uLNormal0.0-0.8[facility] HospitalComment on above:Order Comment: Reason for Exam Tobacco use;Dyslipidemia;Encounter for screening for malignaPerformed By: #### LIPID, TSH3 wRFLX, CMP, CBC #### [facility] [address] [place] [address] USAMonocytes/100 WBC (Bld)5.9 %Normal.[facility] HospitalComment on above:Order Comment: Reason for Exam Tobacco use;Dyslipidemia;Encounter for screening for malignaPerformed By: #### LIPID, TSH3 wRFLX, CMP, CBC #### [facility] [address] [place] [address] USANeutrophils (Bld) [#/Vol]4.6 10*3/uLNormal1.8-7.7FUniversity Hospitals Portage Medical CenterComment on above:Order Comment: Reason for Exam Tobacco use;Dyslipidemia;Encounter for screening for malignaPerformed By: #### LIPID, TSH3 wRFLX, CMP, CBC #### [facility] [address] [place] [address] USANeutrophils/100 WBC (Bld)61.5 %Normal.[facility] HospitalComment on above:Order Comment: Reason for Exam Tobacco use;Dyslipidemia;Encounter for screening for malignaPerformed By: #### LIPID, TSH3 wRFLX, CMP, CBC #### [facility] [address] [place] [address] USANucleated RBC/100 WBC (Bld) [Ratio]0.0 %Normal0-0.5 [facility] HospitalComment on above:Order Comment: Reason for Exam Tobacco use;Dyslipidemia;Encounter for screening for malignaPerformed By: #### LIPID, TSH3 wRFLX, CMP, CBC #### [facility] [address] [place] [id number] USAPlatelet mean volume (Bld) [Entitic vol]6.7 fLNormal 6.6-10.1FUniversity Hospitals Portage Medical CenterComment on above:Order Comment: Reason for Exam Tobacco use;Dyslipidemia;Encounter for screening for malignaPerformed By: #### LIPID, TSH3 wRFLX, CMP, CBC #### [facility] [address] [place] [address] USAPlatelets (Bld) [#/Vol]298 10*3/zUAsiyne579-598QuwmcmvwpMemorial Health System Selby General HospitalComment on above:Order Comment: Reason for Exam Tobacco use;Dyslipidemia;Encounter for screening for malignaPerformed By: #### LIPID, TSH3 wRFLX, CMP, CBC #### [facility] [address] [place] [address] USARBC (Bld) [#/Vol]4.61 10*6/uLNormal3.90-5.60[facility] HospitalComment on above:Order Comment: Reason for Exam Tobacco use;Dyslipidemia;Encounter for screening for malignaPerformed By: #### LIPID, TSH3 wRFLX, CMP, CBC #### [facility] [address] [place] [address] USAWBC (Bld) [#/Vol]7.5 10*3/uLNormal4.5-11.0[facility] HospitalComment on above:Order Comment: Reason for Exam Tobacco use;Dyslipidemia;Encounter for screening for malignaPerformed By: #### LIPID, TSH3 wRFLX, CMP, CBC #### [facility] [address] [place], [place] [id number] USAComprehensive Metabolic Panelon [id number] [Mass/Vol]3.6 g/dLNormal3.2-5.5FUniversity Hospitals Portage Medical CenterComment on above:Order Comment: Reason for Exam Tobacco use;Dyslipidemia;Encounter for screening for maligna Reason for Exam Dyslipidemia Reason for Exam Hypothyroidism, unspecified typePerformed By: #### LIPID, TSH3 wRFLX, CMP, CBC #### [facility] [address] [place] [address] USAAlbumin/Globulin [Mass ratio]1.1 {ratio}NormalMemorial Health System Selby General HospitalComment on above:Order Comment: Reason for Exam Tobacco use;Dyslipidemia;Encounter for screening for maligna Reason for Exam Dyslipidemia Reason for Exam Hypothyroidism, unspecified typePerformed By: #### LIPID, TSH3 wRFLX, CMP, CBC #### [facility] [address] [place] [address] USAALP [Catalytic activity/Vol]78 U/LIooqkv34-02LyxvynadfMemorial Health System Selby General HospitalComment on above:Order Comment: Reason for Exam Tobacco use;Dyslipidemia;Encounter for screening for maligna Reason for Exam Dyslipidemia Reason for Exam Hypothyroidism, unspecified typePerformed By: #### LIPID, TSH3 wRFLX, CMP, CBC #### [facility] [address] [place] [address] USAALT [Catalytic activity/Vol]11 U/EJyothj00-08ScnnderzpMemorial Health System Selby General HospitalComment on above:Order Comment: Reason for Exam Tobacco use;Dyslipidemia;Encounter for screening for maligna Reason for Exam Dyslipidemia Reason for Exam Hypothyroidism, unspecified typePerformed By: #### LIPID, TSH3 wRFLX, CMP, CBC #### [facility] [address] [place] [address] USAAST [Catalytic activity/Vol]14 U/NMylppx27-04IgiglxsmwMemorial Health System Selby General HospitalComment on above:Order Comment: Reason for Exam Tobacco use;Dyslipidemia;Encounter for screening for maligna Reason for Exam Dyslipidemia Reason for Exam Hypothyroidism, unspecified typePerformed By: #### LIPID, TSH3 wRFLX, CMP, CBC #### [facility] [address] [place] [address] USABilirubin [Mass/Vol]0.2 mg/dLLow0.3-1.2FUniversity Hospitals Portage Medical CenterComment on above:Order Comment: Reason for Exam Tobacco use;Dyslipidemia;Encounter for screening for maligna Reason for Exam Dyslipidemia Reason for Exam Hypothyroidism, unspecified typePerformed By: #### LIPID, TSH3 wRFLX, CMP, CBC #### [facility] [address] [place] [address] USACalcium [Mass/Vol]9.2 mg/dLNormal8.2-10.2FUniversity Hospitals Portage Medical CenterComment on above:Order Comment: Reason for Exam Tobacco use;Dyslipidemia;Encounter for screening for maligna Reason for Exam Dyslipidemia Reason for Exam Hypothyroidism, unspecified typePerformed By: #### LIPID, TSH3 wRFLX, CMP, CBC #### [facility] [address] [place] [address] USAChloride [Moles/Vol]98 mmol/QDnrinw20-721UdnvnwgdvMemorial Health System Selby General HospitalComment on above:Order Comment: Reason for Exam Tobacco use;Dyslipidemia;Encounter for screening for maligna Reason for Exam Dyslipidemia Reason for Exam Hypothyroidism, unspecified typePerformed By: #### LIPID, TSH3 wRFLX, CMP, CBC #### [facility] [address] [place] [address] USACO2 [Moles/Vol]27.7 mmol/RLfbvpz42.0-30.0[facility] HospitalComment on above:Order Comment: Reason for Exam Tobacco use;Dyslipidemia;Encounter for screening for maligna Reason for Exam Dyslipidemia Reason for Exam Hypothyroidism, unspecified typePerformed By: #### LIPID, TSH3 wRFLX, CMP, CBC #### [facility] [address] [place] [address] USACreatinine [Mass/Vol]1.00 mg/dLNormal0.64-1.27[facility] HospitalComment on above:Order Comment: Reason for Exam Tobacco use;Dyslipidemia;Encounter for screening for maligna Reason for Exam Dyslipidemia Reason for Exam Hypothyroidism, unspecified typePerformed By: #### LIPID, TSH3 wRFLX, CMP, CBC #### [facility] [address] [place] [id number] USAEstimated GFR ( Keira> 60NormalMemorial Health System Selby General HospitalComment on above:Order Comment: Reason for Exam Tobacco use;Dyslipidemia;Encounter for screening for maligna Reason for Exam Dyslipidemia Reason for Exam Hypothyroidism, unspecified typeResult Comment: GFR estimated reference range: According to KDOQI guidelines, <60 ml/min/1.73m2 is sufficient to diagnose a patient with chronic kidney disease.Performed By: #### LIPID, TSH3 wRFLX, CMP, CBC #### [facility] [address] [place] [address] USAEstimated GFR (Non- Am> 60NoMedina HospitalComment on above:Order Comment: Reason for Exam Tobacco use;Dyslipidemia;Encounter for screening for maligna Reason for Exam Dyslipidemia Reason for Exam Hypothyroidism, unspecified typePerformed By: #### LIPID, TSH3 wRFLX, CMP, CBC #### [facility] [address] [place] [id number] USAGlobulin (S) [Mass/Vol]3.4 g/dLNoMedina HospitalComment on above:Order Comment: Reason for Exam Tobacco use;Dyslipidemia;Encounter for screening for maligna Reason for Exam Dyslipidemia Reason for Exam Hypothyroidism, unspecified typePerformed By: #### LIPID, TSH3 wRFLX, CMP, CBC #### [facility] [address] [place] [address] USAGlucose [Mass/Vol]115 mg/kDVuys30-814Rrcijxf[address] [place], [place] [address]Comment on above:Order Comment: Reason for Exam Tobacco [...] #### LIPID, TSH3 wRFLX, CMP, CBC #### [facility] [address] [place] [address] USAPotassium [Moles/Vol]4.5 mmol/LNormal3.5-5.1FUniversity Hospitals Portage Medical CenterComment on above:Order Comment: Reason for Exam Tobacco use;Dyslipidemia;Encounter for screening for maligna Reason for Exam Dyslipidemia Reason for Exam Hypothyroidism, unspecified typePerformed By: #### LIPID, TSH3 wRFLX, CMP, CBC #### [facility] [address] [place] [id number] USAProtein [Mass/Vol]7.0 g/dLNormnc6.1-7.9[facility] HospitalComment on above:Order Comment: Reason for Exam Tobacco use;Dyslipidemia;Encounter for screening for maligna Reason for Exam Dyslipidemia Reason for Exam Hypothyroidism, unspecified typePerformed By: #### LIPID, TSH3 wRFLX, CMP, CBC #### [facility] [address] [place] [phone] USASodium [Moles/Vol]134 mmol/ZRii640-186ZldwmdrahMemorial Health System Selby General HospitalComment on above:Order Comment: Reason for Exam Tobacco use;Dyslipidemia;Encounter for screening for maligna Reason for Exam Dyslipidemia Reason for Exam Hypothyroidism, unspecified typePerformed By: #### LIPID, TSH3 wRFLX, CMP, CBC #### [facility] [address] [place] [phone] USAUrea nitrogen [Mass/Vol]12 mg/dLNoecu health roanoke-chowan hospital9-23[facility] HospitalComment on above:Order Comment: Reason for Exam Tobacco use;Dyslipidemia;Encounter for screening for maligna Reason for Exam Dyslipidemia Reason for Exam Hypothyroidism, unspecified typePerformed By: #### LIPID, TSH3 wRFLX, CMP, CBC #### [facility] [address] [place] [phone] USALipid Panelon [id number] [Mass/Vol]214 mg/dL Nccv462-063HicllipqhMemorial Health System Selby General HospitalComment on above:Order Comment: Reason for Exam Tobacco use;Dyslipidemia;Encounter for screening for maligna Reason for Exam Dyslipidemia Reason for Exam Hypothyroidism, unspecified typeResult Comment: Chol less than 200 mg/dl low risk Chol 201-239 mg/dl borderline risk Chol 240 mg/dl and greater high riskPerformed By: #### LIPID, TSH3 wRFLX, CMP, CBC #### [facility] [address] [place] [phone] USACholesterol in HDL [Mass/Vol]60 mg/hHFozgxc86-07BdccjcvoyMemorial Health System Selby General HospitalComment on above:Order Comment: Reason for Exam Tobacco use;Dyslipidemia;Encounter for screening for maligna Reason for Exam Dyslipidemia Reason for Exam Hypothyroidism, unspecified typeResult Comment: HDL CHOL ATP-III CLASSIFICATION Cardiovascular Risk HDL > or equal to 60 mg/dL LOW HDL < 40 mg/dL HIGHPerformed By: #### LIPID, TSH3 wRFLX, CMP, CBC #### [facility] [address] [place] [address] USACholesterol.total/Cholesterol in HDL [Mass ratio]3.6 {ratio}Normal<5.0[facility] HospitalComment on above:Order Comment: Reason for Exam Tobacco use;Dyslipidemia;Encounter for screening for maligna Reason for Exam Dyslipidemia Reason for Exam Hypothyroidism, unspecified typePerformed By: #### LIPID, TSH3 wRFLX, CMP, CBC #### [facility] [address] [place] [address] USALDL Cholesterol,Lkgmcqausa869 mg/dLHigh0-100[facility] HospitalComment on above:Order Comment: Reason for Exam [...] #### LIPID, TSH3 wRFLX, CMP, CBC #### [facility] [address] [place] [address] USATriglyceride w/Szzfib845 mg/mWQjhryy36-636JsmgqkkgrMemorial Health System Selby General HospitalComment on above:Order Comment: Reason for Exam [...] #### LIPID, TSH3 wRFLX, CMP, CBC #### [facility] [address] [place] [address] USAVLDL AJAJERWXXLC89 mg/dLNoMedina HospitalComment on above:Order Comment: Reason for Exam Tobacco use;Dyslipidemia;Encounter for screening for maligna Reason for Exam Dyslipidemia Reason for Exam Hypothyroidism, unspecified typePerformed By: #### LIPID, TSH3 wRFLX, CMP, CBC #### [facility] [address] [place] [address] USAThyroid Stim Hormone w/Rflxon 40-00-5379Mfeuxpu Stim Hormone w/Rflx1.62 u[iU]/mLNormal0.45-5.33[facility] Comment on above:Order Comment: Reason for Exam Tobacco use;Dyslipidemia;Encounter for screening for maligna Reason for Exam Dyslipidemia Reason for Exam Hypothyroidism, unspecified typeResult Comment: PERFORMED BY: [place] [address] PATHOLOGIST MANAGER BUSINESS MANAGEMENT CHANDRAKANT ZARCO M.D.Performed By: #### LIPID, TSH3 wRFLX, CMP, CBC #### [address] [address] USAComprehensive Metabolic Panelon [id number] [Mass/Vol]3.6 g/dLNormal3.2-5.5FUniversity Hospitals Portage Medical CenterComment on above:Order Comment: Reason for Exam Hypothyroidism, unspecified type Reason for Exam Hyperlipidemia, unspecifiedPerformed By: #### CMP, LIPID, THYROID SC, SCAN CBC #### [facility] [address] [place], [place] [id number] USAAlbumin/Globulin [Mass ratio]1.2 {ratio}[facility] Medical CenterComment on above:Order Comment: Reason for Exam Hypothyroidism, unspecified type Reason for Exam Hyperlipidemia, unspecifiedPerformed By: #### CMP, LIPID, THYROID SC, SCAN CBC #### [facility] [address] [place] [address] USAALP [Catalytic activity/Vol]71 U/HLddtti88-74UlqrjczciMemorial Health System Selby General HospitalComment on above:Order Comment: Reason for Exam Hypothyroidism, unspecified type Reason for Exam Hyperlipidemia, unspecifiedPerformed By: #### CMP, LIPID, THYROID SC, SCAN CBC #### [facility] [address] [place] [address] USAALT [Catalytic activity/Vol]13 U/LDvjtpj52-90BtycxeqmlMemorial Health System Selby General HospitalComment on above:Order Comment: Reason for Exam Hypothyroidism, unspecified type Reason for Exam Hyperlipidemia, unspecifiedPerformed By: #### CMP, LIPID, THYROID SC, SCAN CBC #### [facility] [address] [place] [address] USAAST [Catalytic activity/Vol]15 U/PIxlcay19-89SnjfgkctmMemorial Health System Selby General HospitalComment on above:Order Comment: Reason for Exam Hypothyroidism, unspecified type Reason for Exam Hyperlipidemia, unspecifiedPerformed By: #### CMP, LIPID, THYROID SC, SCAN CBC #### [facility] [address] [place] [address] USABilirubin [Mass/Vol]0.4 mg/dLNormal0.3-1.2FUniversity Hospitals Portage Medical CenterComment on above:Order Comment: Reason for Exam Hypothyroidism, unspecified type Reason for Exam Hyperlipidemia, unspecifiedPerformed By: #### CMP, LIPID, THYROID SC, SCAN CBC #### [facility] [address] [place] [address] USACalcium [Mass/Vol]9.2 mg/dLNormal8.2-10.2FUniversity Hospitals Portage Medical CenterComment on above:Order Comment: Reason for Exam Hypothyroidism, unspecified type Reason for Exam Hyperlipidemia, unspecifiedPerformed By: #### CMP, LIPID, THYROID SC, SCAN CBC #### [facility] [address] [place] [address] USAChloride [Moles/Vol]100 mmol/PSnqevl11-329QqivleuyrMemorial Health System Selby General HospitalComment on above:Order Comment: Reason for Exam Hypothyroidism, unspecified type Reason for Exam Hyperlipidemia, unspecifiedPerformed By: #### CMP, LIPID, THYROID SC, SCAN CBC #### [facility] [address] [place] [address] USACO2 [Moles/Vol]28.2 mmol/OAccsnq98.0-30.0[facility] HospitalComment on above:Order Comment: Reason for Exam Hypothyroidism, unspecified type Reason for Exam Hyperlipidemia, unspecifiedPerformed By: #### CMP, LIPID, THYROID SC, SCAN CBC #### [facility] [address] [place] [address] USACreatinine [Mass/Vol]0.94 mg/dLNormal0.64-1.27[facility] HospitalComment on above:Order Comment: Reason for Exam Hypothyroidism, unspecified type Reason for Exam Hyperlipidemia, unspecifiedPerformed By: #### CMP, LIPID, THYROID SC, SCAN CBC #### [facility] [address] [place] [phone] USAEstimated GFR ( Keira> 60NormLima City HospitalComment on above:Order Comment: Reason for Exam Hypothyroidism, unspecified type Reason for Exam Hyperlipidemia, unspecifiedResult Comment: GFR estimated reference range: According to KDOQI guidelines, <60 ml/min/1.73m2 is sufficient to diagnose a patient with chronic kidney disease.Performed By: #### CMP, LIPID, THYROID SC, SCAN CBC #### [facility] [address] [place] [phone] USAEstimated GFR (Non- Am> 60NormLima City HospitalComment on above:Order Comment: Reason for Exam Hypothyroidism, unspecified type Reason for Exam Hyperlipidemia, unspecifiedPerformed By: #### CMP, LIPID, THYROID SC, SCAN CBC #### [place] [id number] USAGlobulin (S) [Mass/Vol]3.1 g/dLNoMedina HospitalComment on above:Order Comment: Reason for Exam Hypothyroidism, unspecified type Reason for Exam Hyperlipidemia, unspecifiedPerformed By: #### CMP, LIPID, THYROID SC, SCAN CBC #### [facility] [address] [place] [phone] USAGlucose [Mass/Vol]90 mg/oDLotpvr96-171OrakmoofyMemorial Health System Selby General HospitalComment on above:Order Comment: Reason for Exam Hypothyroidism, unspecified type Reason for Exam Hyperlipidemia, unspecifiedResult Comment: Random Glucose Reference Range is dependent on time and content of last meal. Glucose of more than 200 mg/dL in a nonstressed, ambulatory subject supports the diagnosis of Diabetes Mellitus. ADA recommended reference rangePerformed By: #### CMP, LIPID, THYROID SC, SCAN CBC #### [facility] [address] [place] [phone] USAPotassium [Moles/Vol]4.4 mmol/LNormal3.5-5.1FUniversity Hospitals Portage Medical CenterComment on above:Order Comment: Reason for Exam Hypothyroidism, unspecified type Reason for Exam Hyperlipidemia, unspecifiedPerformed By: #### CMP, LIPID, THYROID SC, SCAN CBC #### [facility] [address] [place] [phone] USAProtein [Mass/Vol]6.7 g/dLNormal6.1-7.9[facility] HospitalComment on above:Order Comment: Reason for Exam Hypothyroidism, unspecified type Reason for Exam Hyperlipidemia, unspecifiedPerformed By: #### CMP, LIPID, THYROID SC, SCAN CBC #### [facility] [address] [place] [address] USASodium [Moles/Vol]136 mmol/IMgrflo877-078IdhodnvaxMemorial Health System Selby General HospitalComment on above:Order Comment: Reason for Exam Hypothyroidism, unspecified type Reason for Exam Hyperlipidemia, unspecifiedPerformed By: #### CMP, LIPID, THYROID SC, SCAN CBC #### [facility] [address] [place] [phone] USAUrea nitrogen [Mass/Vol]9 mg/dLNormal9-23[facility] HospitalComment on above:Order Comment: Reason for Exam Hypothyroidism, unspecified type Reason for Exam Hyperlipidemia, unspecifiedPerformed By: #### CMP, LIPID, THYROID SC, SCAN CBC #### [facility] [address] [place] [phone] USALipid Panelon [id number] [Mass/Vol]177 mg/dL Zkkeqr300-116ZmdmcxzbrMemorial Health System Selby General HospitalComment on above:Order Comment: Reason for Exam Hypothyroidism, unspecified type Reason for Exam Hyperlipidemia, unspecifiedResult Comment: Chol less than 200 mg/dl low risk Chol 201-239 mg/dl borderline risk Chol 240 mg/dl and greater high riskPerformed By: #### CMP, LIPID, THYROID SC, SCAN CBC #### [facility] [address] [place] [phone] USACholesterol in HDL [Mass/Vol]61 mg/tPYrobrd68-98VhpxzthkkMemorial Health System Selby General HospitalComment on above:Order Comment: Reason for Exam Hypothyroidism, unspecified type Reason for Exam Hyperlipidemia, unspecifiedResult Comment: HDL CHOL ATP-III CLASSIFICATION Cardiovascular Risk HDL > or equal to 60 mg/dL LOW HDL < 40 mg/dL HIGHPerformed By: #### CMP, LIPID, THYROID SC, SCAN CBC #### [facility] [address] [place] [id number] USACholesterol.total/Cholesterol in HDL [Mass ratio]2.9 {ratio}Normal<5.0[facility]by [facility] HospitalComment on above:Order Comment: Reason for Exam Hypothyroidism, unspecified type Reason for Exam Hyperlipidemia, unspecifiedPerformed By: #### CMP, LIPID, THYROID SC, SCAN CBC #### [facility] [address] [id number] USALDL Cholesterol,Umevozulob439 mg/dLHigh0-100[facility] HospitalComment on above:Order Comment: Reason for Exam Hypothyroidism, unspecified type Reason for Exam Hyperlipidemia, unspecifiedResult Comment: LDL ATP III CLASSIFICATION LDL less than 100 mg/dL Optimal LDL 100-129 mg/dL Near or above optimal LDL 130-159 mg/dL Borderline high LDL 160-189 mg/dL High LDL greater than 189 mg/dL Very highPerformed By: #### CMP, LIPID, THYROID SC, SCAN CBC #### [facility] [address] [address] USATriglyceride w/Jqcmvo07 mg/jUWwduef85-683DfyyaqwzbMemorial Health System Selby General HospitalComment on above:Order Comment: Reason for Exam [...] CMP, LIPID, THYROID SC, SCAN CBC #### [facility] [address] [address] USAVLDL LYYXGQTQADH20 mg/dLNormLima City HospitalComment on above:Order Comment: Reason for Exam Hypothyroidism, unspecified type Reason for Exam Hyperlipidemia, unspecifiedPerformed By: #### CMP, LIPID, THYROID SC, SCAN CBC #### [place] [address] USAScan and CBCon 62-65-9509Jjkcxhybl (Bld) [#/Vol]0.0 10*3/uLNormal0.0-0.2FUniversity Hospitals Portage Medical CenterComment on above:Order Comment: Reason for Exam Hypothyroidism, unspecified typePerformed By: #### CMP, LIPID, THYROID SC, SCAN CBC #### [place] [address] USABasophils/100 WBC (Bld)0.8 %Normal.[facility] HospitalComment on above:Order Comment: Reason for Exam Hypothyroidism, unspecified typePerformed By: #### CMP, LIPID, THYROID SC, SCAN CBC #### [place] [address] USAEosinophils (Bld) [#/Vol]0.5 10*3/uLHigh0.0-0.45[facility] HospitalComchelsea hospital on above:Order Comment: Reason for Exam Hypothyroidism, unspecified typePerformed By: #### CMP, LIPID, THYROID SC, SCAN CBC #### [place] [address] USAEosinophils/100 WBC (Bld)7.9 %Normal.[facility] HospitalComment on above:Order Comment: Reason for Exam Hypothyroidism, unspecified typePerformed By: #### CMP, LIPID, THYROID SC, SCAN CBC #### [place] [address] USAErythrocyte distribution width (RBC) [Ratio]13.3 %Normal 12.0-14.8[facility] HospitalComchelsea hospital on above:Order Comment: Reason for Exam Hypothyroidism, unspecified typePerformed By: #### CMP, LIPID, THYROID SC, SCAN CBC #### [place] [address] USAHematocrit (Bld) [Volume fraction]44.3 %Zwmfeh42.8-50.0 [facility] HospitalComment on above:Order Comment: Reason for Exam Hypothyroidism, unspecified typePerformed By: #### CMP, LIPID, THYROID SC, SCAN CBC #### [place] [address] USAHemoglobin (Bld) [Mass/Vol]14.8 g/kICfsicz93.0-17.0 [facility] HospitalComment on above:Order Comment: Reason for Exam Hypothyroidism, unspecified typePerformed By: #### CMP, LIPID, THYROID SC, SCAN CBC #### [place] [address] USALymphocytes (Bld) [#/Vol]2.3 10*3/uLNormal1.00-4.8 [facility] HospitalComchelsea hospital on above:Order Comment: Reason for Exam Hypothyroidism, unspecified typePerformed By: #### CMP, LIPID, THYROID SC, SCAN CBC #### [place] [address] USALymphocytes/100 WBC (Bld)38.6 %Normal.[facility] HospitalComment on above:Order Comment: Reason for Exam Hypothyroidism, unspecified typePerformed By: #### CMP, LIPID, THYROID SC, SCAN CBC #### [address]H (RBC) [Entitic mass]32.0 ffWgbski71.5-35.2FUniversity Hospitals Portage Medical CenterComment on above:Order Comment: Reason for Exam Hypothyroidism, unspecified typePerformed By: #### CMP, LIPID, THYROID SC, SCAN CBC #### [address] (RBC) [Entitic vol]95.7 yFBsqqwb24.5-101[facility] HospitalComment on above:Order Comment: Reason for Exam Hypothyroidism, unspecified typePerformed By: #### CMP, LIPID, THYROID SC, SCAN CBC #### [place] [address] USAMean Corpuscular HGB Conc33.5 g/tRZciybm12.5-35.6FUniversity Hospitals Portage Medical CenterComment on above:Order Comment: Reason for Exam Hypothyroidism, unspecified typePerformed By: #### CMP, LIPID, THYROID SC, SCAN CBC #### [facility] [address] [place] [address] USAMonocytes (Bld) [#/Vol]0.4 10*3/uLNormal0.0-0.8[facility] on above:Order Comment: Reason for Exam Hypothyroidism, unspecified typePerformed By: #### CMP, LIPID, THYROID SC, SCAN CBC #### [facility] [address] [place] [address] USAMonocytes/100 WBC (Bld)7.0 %Normal.[facility] HospitalComment on above:Order Comment: Reason for Exam Hypothyroidism, unspecified typePerformed By: #### CMP, LIPID, THYROID SC, SCAN CBC #### [place] [address] USANeutrophils (Bld) [#/Vol]2.7 10*3/uLNormal1.8-7.7FUniversity Hospitals Portage Medical CenterComchelsea hospital on above:Order Comment: Reason for Exam Hypothyroidism, unspecified typePerformed By: #### CMP, LIPID, THYROID SC, SCAN CBC #### [place] [address] USANeutrophils/100 WBC (Bld)45.7 %Normal.[facility] HospitalComchelsea hospital on above:Order Comment: Reason for Exam Hypothyroidism, unspecified typePerformed By: #### CMP, LIPID, THYROID SC, SCAN CBC #### [place] [address] USANucleated RBC/100 WBC (Bld) [Ratio]0.1 %Normal0-0.5 [facility] HospitalComchelsea hospital on above:Order Comment: Reason for Exam Hypothyroidism, unspecified typePerformed By: #### CMP, LIPID, THYROID SC, SCAN CBC #### [place] [address] USAPlatelet EstimateNormalNormalNormalMemorial Health System Selby General HospitalComchelsea hospital on above:Order Comment: Reason for Exam Hypothyroidism, unspecified typePerformed By: #### CMP, LIPID, THYROID SC, SCAN CBC #### [address] [address] USAPlatelet mean volume (Bld) [Entitic vol]7.5 fLNormal 6.6-10.1FUniversity Hospitals Portage Medical CenterComment on above:Order Comment: Reason for Exam Hypothyroidism, unspecified typePerformed By: #### CMP, LIPID, THYROID SC, SCAN CBC #### [facility] [address] [place] [address] USAPlatelet MorphologyNormalNormalNoMedina HospitalComment on above:Order Comment: Reason for Exam Hypothyroidism, unspecified typeResult Comment: PERFORMED BY: [place] [address] PATHOLOGIST MANAGER BUSINESS MANAGEMENT CHANDRAKANT ZARCO M.D.Performed By: #### CMP, LIPID, THYROID SC, SCAN CBC #### [facility] [address] [place] [address] USAPlatelets (Bld) [#/Vol]252 10*3/iBSqeshu828-106ZgtijdtzoMemorial Health System Selby General HospitalComment on above:Order Comment: Reason for Exam Hypothyroidism, unspecified typePerformed By: #### CMP, LIPID, THYROID SC, SCAN CBC #### [facility] [address] [place] [address] USARBC (Bld) [#/Vol]4.63 10*6/uLNormal3.90-5.60[facility] HospitalComment on above:Order Comment: Reason for Exam Hypothyroidism, unspecified typePerformed By: #### CMP, LIPID, THYROID SC, SCAN CBC #### [facility] [address] [place] [address] USARBC morphology finding Nom (Bld)NormalMetroHealth Cleveland Heights Medical CenterComment on above:Order Comment: Reason for Exam Hypothyroidism, unspecified typePerformed By: #### CMP, LIPID, THYROID SC, SCAN CBC #### [place] [address] USAWBC (Bld) [#/Vol]5.9 10*3/uLNormal4.5-11.0[facility] HospitalComment on above:Order Comment: Reason for Exam Hypothyroidism, unspecified typePerformed By: #### CMP, LIPID, THYROID SC, SCAN CBC #### [facility] [address] [place] [address] USATHYROID SCREENon 28-30-2528Mgfb T4 [Mass/Vol]0.98 ng/dL Normal0.61-1.12[facility] HospitalComment on above:Order Comment: Reason for Exam Hypothyroidism, unspecified type Reason for Exam Hyperlipidemia, unspecifiedPerformed By: #### CMP, LIPID, THYROID SC, SCAN CBC #### [facility] [address] [address] USATSH Qn0.92 m[IU]/LNormal0.45-5.33[facility] HospitalComment on above:Order Comment: Reason for Exam Hypothyroidism, unspecified type Reason for Exam Hyperlipidemia, unspecifiedResult Comment: PERFORMED BY: [place] [address] PATHOLOGIST MANAGER BUSINESS MANAGEMENT CHANDRAKANT ZARCO M.D.Performed By: #### CMP, LIPID, THYROID SC, SCAN CBC #### [facility] [address] [address] [facility] Vital Signs Date TimeVital SignValuePerforming WquvzjablQtyxrgkw76-90-1566 09:10-0500Body urbzca182.18 cmSarnot [facility] [employer] Phone: [phone] [place], [place] 5053311-05-2025 09:10-0500 Body .3 [degF]Services [employer] Work Phone: [phone] [place], [place] 5053311-05-2025 09:10-0500 Diastolic blood btzniccd37 mm[Hg]Services [employer] Phone: [phone]-[facility]11-05-2025 09:10-0500 Heart rate73 /RailCommarnot [facility] [employer] Work Phone: [phone] [place], [place] 5053311-05-2025 09:10-0500 Respiratory rate18 /[facility] [employer] Phone: [phone]-[facility]11-05-2025 09:10-0500 SaO2% (BldA) [Mass fraction]91 %Services [facility] Work Phone: [facility]11-05-2025 09:10-0500 Systolic blood mchmuvfi882 mm[Hg]Services [facility] Work Phone: [facility]05-05-2025 08:58-0400 Body epnmlr193.7 cmSiddhartha Jones MD Work Phone: [facility] HospitalSbglvsxoln85-84-9542 08:58-0400Body mass index (BMI) [Ratio]24.63 kg/m2Siddhartha Jones MD Work Phone: [facility] HospitalWrvdopbcsu17-53-8482 08:58-0400Body temperature 97.11 [degF]Siddhartha Jones MD Work Phone: [facility] HospitalYtggmuluvb59-27-1830 08:58-0400Body dlqedp50.48 kgSiddhartha Jones MD Work Phone: [facility] HospitalVidusxodws26-13-5087 08:58-0400Diastolic blood gwvoxnix49 mm[Hg]Siddhartha Jones MD Work Phone: [facility] HospitalPszuizhyxi53-14-4077 08:58-0400Heart rate65 /min Siddhartha Jones MD Work Phone: [facility] HospitalVnoofminbm35-87-0398 08:58-0400Respiratory rate18 /minSiddhartha Jones MD Work Phone: [facility] HospitalZzpswgjhws48-76-3324 08:58-0276PrS8% (BldA) [Mass fraction]93 %Siddhartha Jones MD Work Phone: [facility] HospitalPgclfmpdmt36-56-7236 08:58-0400Systolic blood yywdqfzq591 mm[Hg]Siddhartha Jones MD Work Phone: [facility] HospitalNvsxfvwuby52-92-8234 09:04-0500Body bfiawh096.7 cmSiddhartha Jones MD Work Phone: [facility] HospitalItxrjqzipa72-11-8614 09:04-0500Body mass index (BMI) [Ratio]25.54 kg/m2Siddhartha Jones MD Work Phone: [facility] HospitalJorlggyasp54-38-1188 09:04-0500Body temperature 97.81 [degF]Siddhartha Jones MD Work Phone: [facility] HospitalSumcjbiblg75-81-2759 09:04-0500Body faubjc93.2 kg Siddhartha Jones MD Work Phone: [facility] HospitalBjgkruhdyb87-51-7384 09:04-0500Diastolic blood rdpnyxjb72 mm[Hg]Siddhartha Jones MD Work Phone: [facility]' HospitalAzahiuxsrc92-05-4827 09:04-0500Heart rate70 /min Siddhartha Jones MD Work Phone: [facility] HospitalIqahlxwepj07-21-7698 09:04-0500Respiratory rate18 /minSidhdartha Jones MD Work Phone: [facility] HospitalByjvurgile34-93-2201 09:04-9822HmS7% (BldA) [Mass fraction]93 %Siddhartha Jones MD Work Phone: [facility] HospitalCphkpqpzpo32-70-1561 09:04-0500Systolic blood azqpruaf726 mm[Hg]Siddhartha Jones MD Work Phone: [facility]' HospitalHrradhktoi34-25-2555 10:51-0400Body icvvfs543.1 cmJorge Barron MD Work Phone: [facility]06-21-2023 10:51-0400 Body mass index (BMI) [Ratio]27.65 kg/f1FvmorxhfJorge Barron MD Work Phone: [facility]06-21-2023 10:51-0400 Body cqkluc66 kgJorge Barron MD Work Phone: [facility] Encounters Encounter DateEncounter TypeCare ProviderFacilityStart: 01-21-2025 End: 65-32-2284Vdolxx outpatient new 30 minutesArina Nguyen APRN-CENTRIFUGAL OPERATOR Work Phone: [facility] RanchoComment on above:Lung nodule (Primary Dx)Start: 81-62-3544Nzbptjh encounter procedureServices Family [facility] Work Phone: [facility]: 01-21-2025 End: 96-44-7931wxhzpqkdwmFqlsqzmj Family [facility] Work Phone: -[facility] ClydeStart: 01-21-2025 End: 90-72-0158Twdoyip encounter procedureSiddhartha Jones MD-[facility] [place] Work Phone: Start: 43-09-1006Wxx-patient / Non-visitArleth [facility] Work Phone: Start: 09-15-2024 End: 99-39-2508drkxshcuasHPBBFK [facility] Start: 09-03-2024 End: 59-66-2738Jabrxjyus Result EncounterGeneric External Data ProviderNOMS External Department UnsolicitedStart: 09-03-2024 End: 24-46-0913Hqaywhtzg Result EncounterGeneric External Data ProviderNOMS External Department UnsolicitedStart: 08-26-2024 End: 70-08-2774Kljqyq Sabiha Aldridge PT Work Phone: [facility] CI PTStart: 08-26-2024 End: 39-62-3380Dqhtmq Sabiha Aldridge PT Work Phone: [facility] CI PTStart: 08-26-2024 End: 74-24-1190exsiiazkjsIbzmvr T Blackston PT Work Phone: [facility] CI PTComment on above:Left cervical radiculopathy (Primary Dx); Muscle left arm weaknessStart: 08-13-2024 End: 57-79-2924iamdqscqnbCtqimp T Blackston PT Work Phone: [facility] CI PTComment on above:Left cervical radiculopathy (Primary Dx); Muscle left arm weaknessStart: 08-13-2024 End: 42-80-5781Cpldaa Sabiha Aldridge PT Work Phone: [facility] CI PTStart: 08-13-2024 End: 99-44-1707Omwxpm Sabiha Aldridge PT Work Phone: [facility] CI PTStart: 08-08-2024 End: 66-01-5608wqmzyitscpDNIDWRNC BRINKNot AvailableStart: 08-06-2024 End: 74-06-0618Bwhttw Donna Burleson PTANOMS CI PTStart: 08-06-2024 End: 23-26-9590Shrtur Donna Burleson PTANOMS CI PTStart: 08-06-2024 End: 22-47-5376banhmluturGgtyxet Lawrence PTANOMS CI PTComment on above:Left cervical radiculopathy (Primary Dx); Muscle left arm weaknessStart: 08-04-2024 End: 43-76-2695Yhqgnw flowsheetChiqui Allen PTANOMS CI PTStart: 08-04-2024 End: 58-04-7687Beghpu flowsheetChiqui Allen PTANOMS CI PTStart: 08-04-2024 End: 02-64-2279wzgygfeprlOgbekiq Kelbley PTANOMS CI PTComment on above:Left cervical radiculopathy (Primary Dx); Muscle left arm weaknessStart: 07-29-2024 End: 70-53-5584agtiobjkbiBcjeggDemetrio Aldridge PT Work Phone: [facility] CI PTComment on above:Left cervical radiculopathy (Primary Dx); Muscle left arm weaknessStart: 07-29-2024 End: 57-15-9157Crjsfe Sabiha Aldridge PT Work Phone: [facility] CI PTStart: 07-29-2024 End: 82-04-4655Opntio Sabiha Aldridge PT Work Phone: [facility] CI PTStart: 07-21-2024 End: 74-68-7143Mcxiev Trevon Jones MD Work Phone: noms CWM FMStart: 07-21-2024 End: 22-98-9837Mezplo Trevon Jones MD Work Phone: noms CWM FMStart: 07-21-2024 End: 24-08-8508Qhipxk outpatient visit 25 minutesSiddhartha Jones MD Work Phone: noms CWM FMComment on above:MDD (major depressive disorder), recurrent episode, moderate (CMS/HCC) (Primary Dx); Generalized anxiety disorder (CMS/HCC); Chronic obstructive pulmonary disease, unspecified COPD type (CMS/HCC); Gastroesophageal reflux disease without esophagitis; Chronic neck painStart: 07-21-2024 End: 66-82-8045zafgfzfsnoUEHR NADERERNot AvailableStart: 07-01-2024 End: 86-40-8970Alwmwkwzr Result EncounterGeneric External Data ProviderNOMS External Department UnsolicitedStart: 07-01-2024 End: 02-37-9125Mgjdcsdgs Result EncounterGeneric External Data ProviderNOMS External Department UnsolicitedStart: 06-16-2024 End: 46-31-7487Upkzgp Bethany Jones MD Work Phone: noms CWM FMComment on above:Neck pain (Primary Dx)Neck painStart: 04-11-2024 End: 59-26-6742nithlaxjcnRFHBEAHLima City Hospital Start: 02-21-2024 End: 10-33-1295Illqyvuod Result EncounterSiddhartha Jones MD Work Phone: noms External Department UnsolicitedStart: 02-21-2024 End: 18-15-0926Xosnjekzp Result EncounterSiddhartha Jones MD Work Phone: noms External Department UnsolicitedStart: 01-21-2024 End: 08-57-0467Kbcouldevin Jones MD Work Phone: NOVT CWM FMStart: 01-21-2024 End: 57-85-4009Ymdscv flowsheetSiddhartha Jones MD Work Phone: noms [facility] FMStart: 01-21-2024 End: 99-85-0599Gieuoa outpatient visit 25 minutesSiddhartha Jones MD Work Phone: noms [facility] FMComment on above:MDD (major depressive disorder), recurrent episode, moderate (CMS/HCC) (Primary Dx); Generalized anxiety disorder (CMS/HCC); Chronic obstructive pulmonary disease, unspecified COPD type (CMS/HCC); Gastroesophageal reflux disease without esophagitis; Adult hypothyroidism (CMS/HCC); Prediabetes; Dyslipidemia (CMS/HCC); Encounter for long-term current use of medication; Screening PSA (prostate specific antigen); Non-occlusive coronary artery disease (CMS/HCC)Start: 01-21-2024 End: 25-09-4473wmeiljgmltFQFM NADERERNot AvailableStart: 11-28-2023 End: 99-35-0531Kbwptbcvs Result EncounterGeneric External Data ProviderNOMS External Department UnsolicitedStart: 11-28-2023 End: 96-64-2542Exfufvyal Result EncounterGeneric External Data ProviderNOMS External Department UnsolicitedStart: 10-15-2023 End: 89-42-3653isrtyjlawnXWDGHSELima City Hospital Start: 06-04-2023 End: 00-52-9085Vyskdfsnf Result EncounterGeneric External Data ProviderNOMS External Department UnsolicitedStart: 06-04-2023 End: 03-66-5206Xqpxyiyik Result EncounterGeneric External Data ProviderNOMS External Department UnsolicitedStart: 03-02-2023 End: 94-36-4890Tdmfxbwoq Result EncounterGeneric External Data ProviderNOMS External Department UnsolicitedStart: 03-02-2023 End: 57-95-0467Vcebpvaah Result EncounterGeneric External Data ProviderNOMS External Department UnsolicitedStart: 09-06-2022 End: 30-67-8948ztahqmdcqtIcmbulatoryDr. Arleth Flynnity:[facility] CENTERtart: 09-06-2022 End: 44-23-3129Fuaaerqfig hospital visit by physicianJorge Barron MD Work Phone: [facility] LEGACYComment on above:Solitary pulmonary nodule; Nicotine dependence, cigarettes, uncomplicated; Chronic obstructive pulmonary disease, unspecified (CMS/HCC); Gastro-esophageal reflux disease without esophagitis; Pure hypercholesterolemia, unspecified; Anxiety disorder, unspecified; Depression, unspecified; Hyperlipidemia, unspecified; Other forms of dyspnea; Hypothyroidism, unspecified; Cannabis abuse, uncomplicatedStart: 46-23-7568HCNUGUKRRN, Provider: Jennifer Sykes, Status: Pen, Time: 10:30 Denise Barron MD Work Phone: [phone]-Fdsu [employer] Work Phone: start: 89-79-3797mbgvvttzxtFTE UNKNOWNFacility:[facility] Start: 16-28-4480TNDGEIuhqnfeq Young MD Work Phone: [phone]-[employer]acc [employer] Work Phone: start: 07-28-2022 End: 54-18-9478kibssodqkpRMJUKU SAMSA .Facility:W6Qvwry: 26-69-2831Imyjbomra for preprocedural laboratory examinationSPECIALTY HOSPITAL OF [facility] .OhioHealthtart: 07-10-2022 End: 41-55-4976ekkobtsimqOYFZCM SAMSA .Facility:N6Pijph: 96-84-7959Bqzzkiagm for preprocedural cardiovascular examinationSPECIALTY HOS[facility] .[facility] Start: 07-06-2022 End: 45-17-8705xsejhmzcrrCOUBUZ SAMSA .Facility:L0Hbuyc: 07-06-2022 End: 49-03-8349Ikyjfzxve for preprocedural laboratory examinationSPECIALTY HOSP[facility] . Facility:M1Pwfxd: 07-03-2022 End: 63-23-0711oadloffnjbPMADYW SAMSA .Facility:N4Kgqdk: 07-03-2022 End: 71-75-1312Veeggjhso for preprocedural cardiovascular examinationSPECIALTY H[facility] .Facility:Y6Irlis: 06-22-2022 End: 92-64-9615svxirzjhahWE SIDDHARTHA A NADERERFacility:O2Jhodb: 06-21-2022 End: 99-24-4969ahnehfvzwxSN DOT Dang RISSAERFacility:X4Pzcif: 06-12-2022 End: 82-84-9465yzzboabvlmDI SIDDHARTHA A NADERERFacility:K9Emiza: 01-24-2022 End: 29-50-1655rupxrtispwRN SIDDHARTHA A NADERERFacility:U0Kkejfvj encounter status Jorge Barron MD Work Phone: [phone]-Trnt SeferinoAdventhealth Gordon Work Phone: Procedures DateProcedureProcedure DetailPerforming ClinicianStart: 61-99-7287Ncz spinal canal cervical w/o contrast matrlGeneric External Data ProviderStart: 07-01-2024 MR SHOULDER LEFT W/OGeneric External Data ProviderStart: 26-78-7534YHX CBC WITH AUTO DIFFMarc Refugio YEH Work Phone: Start: 37-54-9284OV CHEST WO CONGeneric External Data ProviderStart: 57-05-6281WN CHEST WO CONGeneric External Data ProviderStart: 03-77-6165MC CHEST W CONTRASTGeneric External Data ProviderStart: 09-06-2022 Bacteria identified in Unspecified specimen by CultureJorge Barron MD Work Phone: Start: 14-43-6498Rhgajh identified in Unspecified specimen by CultureJorge Barron MD Work Phone: Start: 22-27-9988Bweqrtnzrmsyl sp identified in Unspecified specimen by Organism specific cultureJorge Barron MD Work Phone: Start: 62-46-6077VgwndwxjxylpOmbiht Paul Samsa DO Work Phone: start: 74-31-8966CLTOZUXZ NON-SUPPLY SPECIALIST RESULTSJorge Barron MD Work Phone: Start: 91-36-0413BUMPEPYM PATHOLOGY RESULTSJorge Barron MD Work Phone: Start: 38-85-9899JDJ screeningDR DOT FERNYomment on above:Performed By: #### CCPAB #### [facility] [address] [place] [address] Dr. Hamida MendezStart: 35-14-2636NnlpaanijfxOnyh Naderer MD Work Phone: Plan of Treatment DateCare ActivityDetailAuthorStart: 58-43-1581Yqmikdclw for malignant neoplasm of colonNOLA HealthcareStart: 01-26-2025 End: 07-55-8768Xrktksl encounter kacapnwub73/10/2025 11:30 AM EST Appointment [facility] [address] [place] [id number] [place] [address] [place] [address] [facility]: 01-26-2025 End: 64-70-1517Oesximt encounter eulrbtnne84/10/2025 9:30 AM EST Appointment [facility] [address] [place] [address] [facility] Unittart: 01-21-2025 End: 26-33-6809Bxnxknv encounter wlixshzjq10/05/2025 9:00 AM EST Office Visit [facility] [address] [place] [address] Siddhartha Jones MD [address] [place] [address] NOMS CWJennifer FMStart: 60-97-8231KICKL-19 Vaccine ( season)COVID-19 Vaccine ( season)[facility]Start: [facility]-17[facility]2024 Influenza vaccinationNOLA HealthcareStart: 33-33-2048Gyxbikmve vaccination Influenza Vaccine (#1)[facility] CenterStart: 09-01-2024 End: 61-24-0933wgdajlilvr52/ 11:30 AM EDT Treatment [facility] [address] [place] [address] Oneil Rivero, KNUCKLE STRAP SEWER [facility] CI PTStart: 08-28-2024 End: 04-13-4309cjudqcksnw70/12/2025 11:30 AM EDT Treatment [facility] [address] [place] [address] Chiuqi Allen, KNUCKLE STRAP SEWER [facility] CI PTStart: 08-26-2024 End: 98-99-3717feudxceaoe86/10/2025 11:30 AM EDT Treatment [facility] [address] [place] [address] Marcus Aldridge, PT [address] [place] [address] ArrivedNOMS CI PTComment on above:ArrivedStart: 08-13-2024 End: 56-87-0234qcjjemyadi61/28/2025 3:30 PM EDT Treatment [facility] [address] [place] [address] Marcus Aldridge, PT [address] [place] [address] ArrivedNOMS CI PTComment on above:ArrivedStart: 08-08-2024 End: 61-34-9782skzzsenuhh00/23/2025 1:00 PM EDT Treatment [facility] [address] [place] [address] Oneil Rivero, KNUCKLE STRAP SEWER [facility] CI PTStart: 08-06-2024 End: 48-25-3397xmsuckqqllWVEY CI PTComment on above:Left cervical radiculopathy (Primary Dx); Muscle left arm weaknessStart: 08-04-2024 End: 77-80-9832tgljbubullBIVY CI PTComment on above:Left cervical radiculopathy (Primary Dx); Muscle left arm weaknessStart: 07-31-2024 End: 38-11-1215ktnlacxeci34/15/2025 2:00 PM EDT Treatment [facility] [address] [place] [address] Oneil Rivero, ADOLFO [facility] CI PTStart: 07-29-2024 End: 96-69-3328hokmlvxubc56/13/2025 3:00 PM EDT Evaluation [facility] [address] [place] [address] Marcus Aldridge, PT [address] [place] [address] ArrivedNOMS CI PTComment on above:ArrivedStart: 07-21-2024 End: 18-81-4731Dboqupt encounter procedureNOMS CWM FMComment on above:Arrived Start: 01-21-2024 End: 62-00-2497Ycvog metabolic 1998 panel - Serum or PlasmaBasic metabolic panel Lab Routine Encounter for long-term current use of medication Expected: 2023 (Approximate), Expires: 01/20/2025[facility] HealthcareComment on above:Expected: 01/21/2024 (Approximate), Expires: 01/20/2025Start: 01-21-2024 End: 78-51-8172ZIS W Auto Differential panel - BloodCBC and differential Lab Routine Encounter for long-term current use of medication Expected: 01/21/2024 (Approximate), Expires: 01/20/2025[facility] HealthcareComment on above:Expected: 01/21/2024 (Approximate), Expires: 01/20/2025Start: 01-21-2024 End: 15-97-1151Psnzxhljta A1c/Hemoglobin.total in BloodHemoglobin A1c Lab Routine Prediabetes Expected: 01/21/2024 (Approximate), Expires: 01/20/2025[facility] Work Phone: Comment on above:Expected: 01/21/2024 (Approximate), Expires: 01/20/2025Start: 01-21-2024 End: 75-14-5116Ttegxom function 2000 panel - Serum or PlasmaHepatic function panel Lab Routine Encounter for long-term current use of medication Expected: 01/21/2024 (Approximate), Expires: 01/20/2025[facility] HealthcareComment on above: Expected: 01/21/2024 (Approximate), Expires: 01/20/2025Start: 01-21-2024 End: 32-58-6310Bmrxs 1996 panel - Serum or PlasmaLipid panel Lab Routine Dyslipidemia (CMS/HCC) Expected: 01/21/2024 (Approximate), Expires: 01/20/2025 [facility] HealthcareComment on above:Expected: 01/21/2024 (Approximate), Expires: 01/20/2025Start: 01-21-2024 End: 28-97-1111Hjwpbang specific Ag [Mass/volume] in Serum or PlasmaPSA Lab Routine Screening PSA (prostate specific antigen) Expected: 01/21/2024 (Approximate), Expires: 01/20/2025[facility] HealthcareComment on above:Expected: 01/21/2024 (Approximate), Expires: 01/20/2025Start: 01-21-2024 End: 46-32-8671Ijmclyvscce [Units/volume] in Serum or PlasmaTSH Lab Routine Adult hypothyroidism ([facility]) Expected: 01/21/2024 (Approximate), Expires: 01/20/2025[facility] HealthcareComment on above:Expected: 01/21/2024 (Approximate), Expires: 01/20/2025Start: 01-21-2024 End: 56-55-8790Guqgnisda (T4) free [Mass/volume] in Serum or PlasmaT4, free Lab Routine Adult hypothyroidism ([facility]) Expected: 01/21/2024 (Approximate), Expires: 01/20/2025[facility] HealthcareComment on above:Expected: 01/21/2024 (Approximate), Expires: 01/20/2025Start: 01-21-2024 End: 79-72-9702Bxuykhp encounter ypciyvacz51/04/2024 8:45 AM EST Office Visit [facility] [address] [place] [address] Siddhartha Jones MD [address] [place] [address] ArrivedNOMS CWM FMComment on above:ArrivedStart: 58-01-6185Mcwcurvez vaccinationInfluenza Vaccine (#1)[facility] HealthcareStart: 84-98-7421PBM, Provider: Glen He, Status: Pen, Time: 9:00 AMNPV, Provider: Glen He, Status: Pen, Time: 9:00 AMMG-Pul[facility] Work Phone: start: 44-54-3278Qgkmbfcmr vaccinationInfluenza Vaccine (#1)[facility]: 96-83-7916Mgrhfhba specific antigen measurementPSA Prostate Cancer ScreeningUnAultman Alliance Community Hospital: 27-64-4002Fjoohr Vaccines (1 of 2)Zoster Vaccines (1 of 2) [facility]: 12-74-6459EKxO/Tdap/Td Vaccines (1 - Tdap)DTaP/Tdap/Td Vaccines (1 - Tdap)[facility]: 87-19-8890Hggaacnmx A Vaccines (1 of 2 - Risk 2-dose series)Hepatitis A Vaccines (1 of 2 - Risk 2-dose series)[facility]: 1987 Hepatitis B Vaccines (1 of 3 - 19+ 3-dose series)Hepatitis B Vaccines (1 of 3 - 19+ 3-dose series)[facility]: 48-26-7004Tfuhebyqsiwn vaccinationPneumococcal Vaccine (1 of 2 - PCV)[facility] Start: 98-20-3771Djdwxtoz mellitus screeningDiabetes ScreeningUnAultman Alliance Community Hospital: 52-80-5917Kodfzcdpm C screeningHepatitis C ScreeningUnAultman Alliance Community Hospital: 38-38-0242Tcrlgpsezusr Vaccine: Pediatrics (0 to 5 Years) and At-Risk Patients (6 to 64 Years) (1 - PCV) Pneumococcal Vaccine: Pediatrics (0 to 5 Years) and At-Risk Patients (6 to 64 Years) (1 - PCV)[facility]: 72-46-9068HPT Vaccines (1 of 1 - Standard series)MMR Vaccines (1 of 1 - Standard series)[facility]: 19-57-0208YACXO-19 Vaccine (#1)COVID-19 Vaccine (#1)[facility]: 19-29-9991Zqepgyzic B Vaccines (1 of 3 - 3-dose series)Hepatitis B Vaccines (1 of 3 - 3-dose series)[facility]: 51-91-0589JIC screeningHIV ScreeningUnAultman Alliance Community Hospital: 93-63-9896Wjyag panelLipid PanelUnAultman Alliance Community Hospital: 53-16-3157Sxjielojj for malignant neoplasm of colon [facility]: 92-65-0770Xntqemrdt for malignant neoplasm of lungLung Cancer Screening Shared Decision MakingNOLA Healthcare Start: 79-48-5786Wuermaq stimulating hormone measurementTS LevelUnAultman Alliance Community Hospital: 04-74-7768Lqvzbc Adult PhysicalYearly Adult PhysicalUnMartins Ferry HospitalComprehensive metabolic 2000 panel - Serum or PlasmaMemorial Regional Hospital South Immunizations Immunization DateImmunizationNotesCare MjndeewqLfuynyxn96-79-6123Lfloem COVID-19 Vac Bivalent 30 MCG/0.3ML Intramuscular SuspensionReferring Provider UnknownMG- [facility] Work Phone: [phone]bi 30 MCG/0.3ML Intramuscular SuspensionReferring Provider UnknownMG[facility] Work Phone: [phone]-BnlKRjcj COVID-19 Vacc 30 MCG/0.3ML Intramuscular SuspensionReferring Provider UnknownMG[facility] Work Phone: [phone]-LahWJddz COVID-19 Vacc 30 MCG/0.3ML Intramuscular SuspensionReferring Provider [facility]03-29-2021Pfizer-BioNTech COVID-19 Vacc 30 MCG/0.3ML Intramuscular SuspensionReferring Provider [facility] Payers DatePayer CategoryPayerPolicy [id number] (Managed Care) [id number] 2.0.1.692821.3.57[id number] 2.160.1.689369.3.57[id number] 2.0.1.143654.3.57[id number] 2..1.693628.3.57[id number] 2.0.1.102944.3.57[id number] 2.0.1.672976.3.57[id number] 2..1.277987.3.57[id number] 2.0.1.760509.3.57[id number] 2.840.1.628630.3.57[id number] 2.0.1.029155.3.57[id number] 2.0.1.544357.3.57[id number] 2.840.1.947610.3.57[id number] 2.16.840.1.438780.3.57[id number] 2.16.840.1.964076.3.57[id number] 2.16.840.1.348619.3.57[id number] 2.16.840.1.604283.3.57[id number] 2.16.840.1.392558.3.57[id number] 2.16.840.1.733250.3.57[id number] 2.16.840.1.238586.3.57[id number] [employer] PLAN Social History DateTypeDetailFacilityTobacco smoking status NHISTobacco smoking consumption unknownUnMartins Ferry Hospital Work Phone: Start: 98-53-7305Jao Assigned At BirthNot on file [facility] Work Phone: Start: 07-24-2023 End: 99-63-2898Wgazyk identityNot on fileVALLEY VIEW MEDICAL CENTER HealthcareStart: 06-22-2023 End: 69-26-7650Enrvpyl smoking status NHISEx-smokerNOMS HealthcareStart: 04-19-1988 End: 49-72-0408Kabtyvp of tobacco useCurrent smokerNOMS HealthcareStart: 04-19-1988 End: 65-09-1502Mutuktn of tobacco useCigarette SmokerNOMS HealthcareStart: 06-22-2023 End: 08-21-1885Mvcmcrkngb smoked current (pack per day) - Bpkqdfak9AOVN HealthcareStart: 62-51-1894Tvcpzua use and exposureSmokeless tobacco non-user [facility] HealthcareDo you belong to any clubs or organizations such as quaker groups, unions, fraternal or athletic groups, or school groups?NoN[facility]S Healthcare Are you now , , , , never or living with a partner?DivorcedNOMS HealthcareHow often to you have a drink containing alcohol?NeverNOLA HealthcareStart: 22-02-8098Nis many standard drinks containing alcohol do you have on a typical day?Patient does not drinkNOMS HealthcareHow hard is it for you to pay for the very basics like food, housing, medical care, and heatingHardNOMS HealthcareDo you feel stress - tense, restless, nervous, or anxious, or unable to sleep at night because yourmind is troubled all the time - these days [OSQ]To some extentNOMS Healthcare(I/We) worried whether (my/our) food would run out before (I/we) got money to buy more.Often trueNOMS Healthcare The food that (I/we) bought just didn't last, and (I/we) didn't have money to get more.Sometimes trueNOLA HealthcareStart: 58-16-9059KanYnfh ([facility]sontart: 33-34-7939Svc Assigned At [facility] Functional Status AmdtVivqepbaihXtkzqtQwnmqjir57-03-4391Ypxhn score [AUDIT-C]0 07/24/2023 8:49 PM EDT [place], [facility] HospitalMsjfgrvjfe47-29-2619Tea often do you have a drink containing alcohol?Never 07/24/2023 8:49 PM EDT [place], Generic NeverHarry S. [facility] Veterans' HospitalNobjxchbtf71-37-7613Jgzyleafiy statusPatient does not drink 07/24/2023 8:49 PM EDT [facility], Generic Patient does not drinkHarry S. Truman Memorial Veterans' HospitalXvafcwlgnm23-29-1429Vkk often do you have 6 or more drinks on 1 occasion?Never 07/24/2023 8:49 PM EDT [facility], Generic [facility] Clinical Notes 09-06-2022 to 01-21-2025 Note Date & JzcqPnbfUqangmvw30-38-3843 History of Present illness Narrative* Arina Nguyen, CERTIFIED MEDICAL AIDE-CENTRIFUGAL OPERATOR - 01/21/2025 10:00 AM EST Images from the original note were not included. [facility] Pulmonary Medicine Pre-Bronchoscopy Visit Note PATIENT INFORMATION Patient Name: Alona Patino Date of : 1970 (54 y.o.) REASON FOR VISIT Pre-bronchoscopy evaluation Referring Provider: No ref. provider found HISTORY OF PRESENT ILLNESS Virtual or Telephone Consent: While technically available, the patient was unable or unwilling to consent to connect via audio/video telehealth technology; therefore, I performed this visit using a real-time audio only connectionbetween Alona Patino & Arina Nguyen CERTIFIED MEDICAL AIDE-CENTRIFUGAL OPERATOR. Verbal consent was requested and obtained from Alona Patino on this date, 01/21/25 for a telehealthvisit and the patient's location was confirmed at the time of the visit. Alona Patino is a 54 y.o. male with a past medical history of lung nodules, former nicotine dependence, emphysema, nonobstructive CAD, myocardial bridging, hyperlipidemia, hypothyroidism, GERD, depression, anxiety who presents via phone call to [facility] Pulmonary Medicine Clinic for a pre-bronchoscopy evaluation. Patient follows with Pulmonary/Dr. Espino through . He has a history of a PIPER nodule in which he underwent biopsy of on 09/06/2022 with IP/Dr. Barron; findings were negative for malignancy or infection. [...] Diagnoses & Treatments: Emphysema Follows with Pulmonary/Dr. Espino through . Currently uses Breztri and PRN albuterol HFA [...] 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[employer] Social History Socioeconomic History Marital status: Unknown [...] Resource Strain: High Risk (07/24/2023) Received from [facility] Overall Financial Resource Strain (CARDIA) Difficulty of Paying Living Expenses: Hard Food Insecurity: Food Insecurity Present (07/24/2023) Received from [facility] Hunger Vital Sign Within the past 12 months, you worried that your food would run out before you got the money to buymore.: Often true Within the past 12 months, the food you bought just didn't last and you didn't have money to get more.: Sometimes true Transportation Needs: No Transportation Needs (07/24/2023) Received from [facility] PRAPARE - Transportation Lack of Transportation (Medical): No Lack of Transportation (Non-Medical): No Physical Activity: Sufficiently Active (07/24/2023) Received from [facility] Exercise Vital Sign On average, how many days per week do you engage in moderate to strenuous exercise (like a brisk walk)?: 7 days On average, how many minutes do you engage in exercise at this level?: 30 min Stress: Stress Concern Present (07/24/2023) [facility] from [facility] [place] [facility] [employer] - Occupational Stress Questionnaire Feeling of Stress : To some extent Social Connections: Socially Isolated (07/24/2023) Received from [facility] Social Connection and Isolation Panel In a typical week, how many times do you talk on the phone with family, friends, or neighbors?: More than three times a week How often do you get together with friends or relatives?: Once a week How often do you attend quaker or voodoo services?: Never Do you belong to any clubs or organizations such as quaker groups, unions, fraternal or athletic groups, or school groups?: No How often do you attend meetings of the clubs or organizations you belong to?: Never Are you , , , , never , or living with a partner?: Intimate Partner Violence: Unknown (05/10/2023) Received from [facility] Safety & Environment Fear of Current or Ex-Partner: Not on file Emotionally Abused: Not on file Physically Abused: Not on file Sexually Abused: Not on file Physically or Sexually Abused: Not on file Housing Stability: Low Risk (07/24/2023) Received from [facility] Housing Stability Vital Sign Unable to Pay [...] FUNCTION TESTS (PFTs) Spirometry: -Date: 10/31/2023 -Location: [facility] -FEV1/FVC: 60% -FEV1: 23% (0.84L) -FVC: 32% -Bronchodilator response: None PFT: -Date: 06/12/2022 -Location: [facility] -FEV1/FVC: 40% -FEV1: 37% -FVC: 72% -RCH92-66%: 15% -Bronchodilator response: None -RV: 177% -T% [...] - 0.03 10 3/uL 0.01 Resulting Agency [facility] Specimen Collected: 02/21/24 12:34 Performed by: CJ Last Resulted: 12/05/24 12:40 Received From: [facility] Result Received: 01/07/25 09:24 ALL BASIC METABOLIC [...] 0.70 - 1.30 mg/dL 1.08 [facility] EGFR-AF CITIZEN [place] >=60 mL/min/1.73m 2 >60 [facility] EGFR-NON AF CITIZEN [place] >=60 mL/min/1.73m 2 >60 BUN CREATININE RATIO 8.3 CALCIUM 8.5 - 10.1 mg/dL 9.1 Resulting Agency TB Specimen Collected: 02/21/24 12:34 Performed by: KlikkaPromoREGINALD Last Resulted: 02/21/24 13:49 Received From: [facility] Result Received: 01/07/25 09:24 ASSESSMENT & PLAN Alona Patino is a 54 y.o. male with a past medical history of lung nodules, former nicotine dependence, emphysema, nonobstructive CAD, myocardial bridging, hyperlipidemia, hypothyroidism, GERD, depression, anxiety who presents via phone call to [facility] Pulmonary Medicine Clinic for a pre-bronchoscpy evaluation. PIPER lung nodules RUL infiltrate Patient follows with Pulmonary/Dr. Espino through . He has a history of a PIPER nodule in which he underwent biopsy of on 09/06/2022 with IP/Dr. Barron; findings were negative for malignancy or infection. [...] (audio only) between the patient (located in [place]) and provider (located in [place]) wasutilized to provide this telehealth service. Prep [...] agreed to proceed. All questions were answered. KAVON Hernandes 01/21/2025 Thank you for visit with the [...] [5] Not on File documented in this encounterMain [facility] Center Work Phone: [phone]) 375-398111-05-2025 Instructions* Patient Instructions* KAVON Hernandes - 01/21/2025 10:00 AM EST Below is a summary of our plan and instructions: - Plan to proceed with bronchoscopy on 01/26/2025 at [facility] ([address] [place] [address]) ? [address] chest before procedure at 9:15 AM at [facility], 2nd floor Radiology, [address] ? Bronchoscopy procedure check-in at 10:30 AM at the Bronchoscopy/Endoscopy [address] ([place]) Reminders: - Obtain labs (CBC and BMP) before procedure - Nothing by mouth after midnight the night before procedure Thank you for visit with the Pulmonary Clinic. Pulmonary Office: Bronchoscopy Scheduling: Tonia - / Allen - Radiology Scheduling: General Appointment Scheduling: Pulmonary Function Testing: documented in this encounterMain Campus Medical Center Work Phone: [phone]) 804-627006-30-2025 NoteUT Cardiology - [facility] Reilly Patino is a 54 y.o. 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 Pain: 0/10 neck, Objective: [...] 2+/5, abduction 2+/5, ER 3-/5, IR 4-/5, family manager right 90#, left 80# Joint: severe C4/C6 [...] to be instructed in home exercise program. Mcc Goals: To be met in 10 weeks [...] Please sign below. Date: documented in this encounterHarry S. Truman Memorial Veterans' HospitalAftgtpxntg02-64-7984 History of Present illness Narrative* Marcus Aldridge PT - 08/13/2024 3:30 PM EDT Images [...] 2+/5, abduction 2+/5, ER 3-/5, IR 4-/5, family manager right 90#, left 80# Joint: severe C4/C6 [...] to be instructed in home exercise program. Mcc Goals: To be met in 10 weeks [...] Please sign below. Date: documented in this encounterHarry S. Truman Memorial Veterans' HospitalPqvauthwmv70-08-7938 History of Present illness Narrative* Marcus Aldridge, [...] 2+/5, abduction 2+/5, ER 3-/5, IR 4-/5, family manager right 90#, left 80# Joint: severe C4/C6 [...] to be instructed in home exercise program. Mcc Goals: To be met in 10 weeks [...] Please sign below. Date: documented in this encounterHarry S. Truman Memorial Veterans' HospitalGukgakxtos69-02-9837 History of Present illness Narrative* Siddhartha Jones [...] EDTAssociated Problem(s): COPD (chronic obstructive pulmonary disease) (CMS/HCC) Breathing [...] (Ultram) 50 MG tablet documented in this encounterHarry S. Truman Memorial Veterans' HospitalCcnqecttma05-50-6296 Telephone encounter Note* Telephone Encounter - MARYJANE BANERJEE - 06/30/2024 10:34 AM EDT Patient called requesting refill on tramadol, and askng for a steroid, for shoulder pain. clm [facility]' HospitalAqdaozdsge44-23-5191 Miscellaneous Notes* Telephone Encounter - MARYJANE BANERJEE - 06/30/2024 10:34 AM EDT Patient called requesting refill on tramadol, and askng for a steroid, for shoulder pain. clm * Telephone Encounter - Elo Naveen - 06/16/2024 2:39 PM EDT Patient would like a prescription for toradol he sees the surgeon next week but his shoulder and neck are bothering him . an documented in this encounterHarry S. Truman Memorial Veterans' HospitalItaaufganq45-60-6749 Telephone encounter Note* Telephone Encounter - Elo Patino - 06/16/2024 2:39 PM EDT Patient would like a prescription for toradol he sees the surgeon next week but his shoulder and neck are bothering him . an [facility] HospitalTrqaioltmj22-36-5716 NoteCardiology Clinic Note HPI: Alona Patino is [...] carvedilol palpitations have resolved. He sees Dr. Samsa for COPD. Doing very well from cardiac [...] provided. Patient verbalizes understan (more content not included)...[facility]11-04-2024 History of Present illness Narrative* Siddhartha Jones [...] ESTAssociated Problem(s): COPD (chronic obstructive pulmonary disease) (CMS/HCC) Breathing stable and continue inhalers. Follow up with pulmonology. * Siddhartha Jones MD - 01/21/2024 9:40 AM ESTAssociated Problem(s): Adult hypothyroidism (CMS/HCC) No signs of low [...] Relevant Medications omeprazole (PriLOSEC) [address] hans Encounter for long-term current use of medication Relevant Orders Basic metabolic panel CBC and differential Hepatic function panel Screening PSA (prostate specific antigen) Relevant Orders PSA documented in this encounterHarry S. Truman Memorial Veterans' HospitalPijejodwfe61-01-7386 NoteCardiology Clinic Note Chief Complaint: chest pain [...] myocardial bridging -Continue rosuvastat (more content not included)...[facility]06-21-2023 NotePatient Name: Alona Patino Procedure Date: 09/06/2022 11:36 AM Date of : 1970 Room: Bronchoscopy Room 1 Attending MD: Jorge Barron MD, [id number] Procedure: Bronchoscopy Indications: Left upper lobe nodule Providers: Jorge Barron MD (Doctor), Michelle Borden RN (Nurse), Corinne Franco, Monogram Operator (Monogram Operator), Steven Mariscal MD (Fellow) Referring MD: [...] by the physician, the nurse and the plug and mold finisher in the procedure room at 11:36 AM. [...] no secretions. Electromagnetic navigation bronchoscopy utilizing the [employer] system with iLog[employer] upgrade was performed. The [...] Cannabis abuse, uncomplicated documented in this encounter [facility] Work Phone: Evaluation note* Diagnosis Dysfunction of left eustachian tube- Primary Generalized anxiety disorder (CMS/HCC) Generalized anxiety disorder MDD (major depressive disorder), recurrent episode, moderate (CMS/HCC)- Primary Generalized anxiety disorder (CMS/HCC) Generalized anxiety disorder BPH associated with nocturia Adult hypothyroidism (CMS/HCC) Unspecified hypothyroidism Non-occlusive coronary artery disease (CMS/HCC) Coronary atherosclerosis of unspecified type of vessel, [place] or graft Chronic obstructive pulmonary disease, unspecified [...] Coronary atherosclerosis of unspecified type of vessel, [place] or graft documented in this encounter [facility] HealthcareEvaluation note* Diagnosis Dysfunction of left eustachian tube- Primary Generalized anxiety disorder (CMS/HCC) Generalized anxiety disorder MDD (major depressive disorder), recurrent episode, moderate (CMS/HCC)- Primary Generalized anxiety disorder (CMS/HCC) Generalized anxiety disorder BPH associated with nocturia Adult hypothyroidism (CMS/HCC) Unspecified hypothyroidism Non-occlusive coronary artery disease (CMS/HCC) Coronary atherosclerosis of unspecified type of vessel, [place] or graft Chronic obstructive pulmonary disease, unspecified [...] Coronary atherosclerosis of unspecified type of vessel, [place] or graft Neck pain- Primary Cervicalgia documented in this encounter [facility] HealthcareEvaluation note* Diagnosis Dysfunction of left eustachian tube- Primary Generalized anxiety disorder (CMS/HCC) Generalized anxiety disorder MDD (major depressive disorder), recurrent episode, moderate (CMS/HCC)- Primary Generalized anxiety disorder (CMS/HCC) Generalized anxiety disorder BPH associated with nocturia Adult hypothyroidism (CMS/HCC) Unspecified hypothyroidism Non-occlusive coronary artery disease (CMS/HCC) Coronary atherosclerosis of unspecified type of vessel, [place] or graft Chronic obstructive pulmonary disease, unspecified [...] Coronary atherosclerosis of unspecified type of vessel, [place] or graft Neck pain Cervicalgia documented in this encounter [facility]Evaluation [facility]* Diagnosis Dysfunction of left eustachian tube- Primary Generalized anxiety disorder (CMS/HCC) Generalized anxiety disorder MDD (major depressive disorder), recurrent episode, moderate (CMS/HCC)- Primary Generalized anxiety disorder (CMS/HCC) Generalized anxiety disorder BPH associated with nocturia Adult hypothyroidism (CMS/HCC) Unspecified hypothyroidism Non-occlusive coronary artery disease (CMS/HCC) Coronary atherosclerosis of unspecified type of vessel, [place] or graft Chronic obstructive pulmonary disease, unspecified [...] Coronary atherosclerosis of unspecified type of vessel, [place] or graft MDD (major depressive disorder), recurrent [...] Coronary atherosclerosis of unspecified type of vessel, [place] or graft Chronic obstructive pulmonary disease, unspecified [...] Coronary atherosclerosis of unspecified type of vessel, [place] or graft MDD (major depressive disorder), recurrent episode, moderate (CMS/HCC)- Primary Generalized anxiety disorder (CMS/HCC) Generalized anxiety disorder Chronic obstructive pulmonary disease, unspecified COPD type (CMS/HCC) Gastroesophageal reflux disease without esophagitis Esophageal reflux Chronic neck pain Cervicalgia Left cervical radiculopathy- Primary Muscle left arm weakness Muscle weakness (generalized) documented in this encounter [facility]* Diagnosis Dysfunction of left eustachian tube- Primary Generalized anxiety disorder (CMS/HCC) Generalized anxiety disorder MDD (major depressive disorder), recurrent episode, moderate (CMS/HCC)- Primary Generalized anxiety disorder (CMS/HCC) Generalized anxiety disorder BPH associated with nocturia Adult hypothyroidism (CMS/HCC) Unspecified hypothyroidism Non-occlusive coronary artery disease (CMS/HCC) Coronary atherosclerosis of unspecified type of vessel, [place] or graft Chronic obstructive pulmonary disease, unspecified [...] Coronary atherosclerosis of unspecified type of vessel, [place] or graft MDD (major depressive disorder), recurrent episode, moderate (CMS/HCC)- Primary Generalized anxiety disorder (CMS/HCC) Generalized anxiety disorder Chronic obstructive pulmonary disease, unspecified COPD type (CMS/HCC) Gastroesophageal reflux disease without esophagitis Esophageal reflux Chronic neck pain Cervicalgia Left cervical radiculopathy- Primary Muscle left arm weakness Muscle weakness (generalized) documented in this encounter [facility]* Diagnosis Dysfunction of left eustachian tube- Primary Generalized anxiety disorder (CMS/HCC) Generalized anxiety disorder MDD (major depressive disorder), recurrent episode, moderate (CMS/HCC)- Primary Generalized anxiety disorder (CMS/HCC) Generalized anxiety disorder BPH associated with nocturia Adult hypothyroidism (CMS/HCC) Unspecified hypothyroidism Non-occlusive coronary artery disease (CMS/HCC) Coronary atherosclerosis of unspecified type of vessel, [place] or graft Chronic obstructive pulmonary disease, unspecified [...] Coronary atherosclerosis of unspecified type of vessel, [place] or graft MDD (major depressive disorder), recurrent episode, moderate (CMS/HCC)- Primary Generalized anxiety disorder (CMS/HCC) Generalized anxiety disorder Chronic obstructive pulmonary disease, unspecified COPD type (CMS/HCC) Gastroesophageal reflux disease without esophagitis Esophageal reflux Chronic neck pain Cervicalgia Left cervical radiculopathy- Primary Muscle left arm weakness Muscle weakness (generalized) documented in this encounter [facility]* Diagnosis Dysfunction of left eustachian tube- Primary Generalized anxiety disorder (CMS/HCC) Generalized anxiety disorder MDD (major depressive disorder), recurrent episode, moderate (CMS/HCC)- Primary Generalized anxiety disorder (CMS/HCC) Generalized anxiety disorder BPH associated with nocturia Adult hypothyroidism (CMS/HCC) Unspecified hypothyroidism Non-occlusive coronary artery disease (CMS/HCC) Coronary atherosclerosis of unspecified type of vessel, [place] or graft Chronic obstructive pulmonary disease, unspecified [...] Coronary atherosclerosis of unspecified type of vessel, [place] or graft MDD (major depressive disorder), recurrent episode, moderate (CMS/HCC)- Primary Generalized anxiety disorder (CMS/HCC) Generalized anxiety disorder Chronic obstructive pulmonary disease, unspecified COPD type (CMS/HCC) Gastroesophageal reflux disease without esophagitis Esophageal reflux Chronic neck pain Cervicalgia Left cervical radiculopathy- Primary Muscle left arm weakness Muscle weakness (generalized) documented in this encounter [facility]* Diagnosis Dysfunction of left eustachian tube- Primary Generalized anxiety disorder (CMS/HCC) Generalized anxiety disorder MDD (major depressive disorder), recurrent episode, moderate (CMS/HCC)- Primary Generalized anxiety disorder (CMS/HCC) Generalized anxiety disorder BPH associated with nocturia Adult hypothyroidism (CMS/HCC) Unspecified hypothyroidism Non-occlusive coronary artery disease (CMS/HCC) Coronary atherosclerosis of unspecified type of vessel, [place] or graft Chronic obstructive pulmonary disease, unspecified [...] Coronary atherosclerosis of unspecified type of vessel, [place] or graft MDD (major depressive disorder), recurrent episode, moderate (CMS/HCC)- Primary Generalized anxiety disorder (CMS/HCC) Generalized anxiety disorder Chronic obstructive pulmonary disease, unspecified COPD type (CMS/HCC) Gastroesophageal reflux disease without esophagitis Esophageal reflux Chronic neck pain Cervicalgia Left cervical radiculopathy- Primary Muscle left arm weakness Muscle weakness (generalized) documented in this encounter [facility] noteNo assessment information availableGrand Lake Joint [facility] Work Phone: Evaluation note* Diagnosis Lung nodule- Primary Other diseases of lung, not elsewhere classified documented in this encounter [facility] Work Phone: Reason for referral (narrative)No reason for referral information availableGrand Lake Joint [facility] Work Phone: Reason for visit Narrative* Rehabilitation - Outpatient (Routine) - AuthorizedSpecialtyDiagnoses / ProceduresReferred By ContactReferred To ContactPhysical Therapy Diagnoses Radiculopathy, cervical region Procedures [place] PHYSICAL THERAPY EVALUATION LOW COMPLEX 20 MINS [place] OFFICE/OUTPATIENT NEW HIGH MDM 60 MINUTES Dot Quintana MD [address] [place] [address] [place] [address] Phone: tel: fax: [facility] [address] [facility] [address] [place] [address] Phone: tel: fax: Referral IDStatusReasonStart DateExpiration DateVisits RequestedVisits [id number] [facility] HealthcareReason for visit Narrative* Rehabilitation - Outpatient (Routine) - AuthorizedSpecialtyDiagnoses / ProceduresReferred By ContactReferred To ContactPhysical Therapy Diagnoses Radiculopathy, cervical region Procedures [place] PHYSICAL THERAPY EVALUATION LOW COMPLEX 20 MINS [place] OFFICE/OUTPATIENT NEW HIGH MDM 60 MINUTES Dot Quintana MD [address] [place] [address] [place] [address] Phone: tel: fax: [facility] [address] [place] [address] Phone: tel: fax: Referral IDStatusReasonStart DateExpiration DateVisits RequestedVisits [id number] [facility] Summary Purpose Family History Relationship Condition Age at Onset Recorded Date/T roberto brother Malignant neoplasm Unknown Disorder of liverUnknown Advance Directives Advance Directive Response Recorded Date/ Time Advance Directives No December 25, 2016 11:36am Chief Complaint and Reason for Visit Chief Complaint Admit Date Established Patient January 21, 2025 8 :49am Additional Source Comments (unrecognized sect ion and content) No Status Records FoundNo Status Records FoundNo Status Records FoundNo Status Records FoundNo Status Records FoundNo Status Records Found INFORMATION SOURCE (unrecogn ized section and content) DATE CREATED AUTHOR 05/05/2021 [facility] DATE CREATED AUTHOR AUTHOR'S ORGANIZ ATION 10/22/2021 [facility] DATE CREATED AUTHOR AUTHOR'S ORGANIZ ATION 08/02/2022 [facility] DATE CREATED AUTHOR AUTHOR'S ORGANIZ ATION 08/29/2022 [facility] DATE CREATED AUTHOR AUTHOR'S ORGANIZ ATION 10/26/2022 [facility] DATE CREATED AUTHOR AUTHOR'S ORGANIZ ATION 08/28/2024 [facility] DATE CREATED AUTHOR AUTHOR'S ORGANIZ ATION 09/16/2024 [facility] Reason for Visit (unrecogniz ed section and content) ReasonCommentsOtherBronch EBUS [id number] mReasonComments Follow-up6/m f/upShoulder/neck pain Care Teams (unrecognized sec tion and content) Team MemberRelationshipSpecialtyStart DateEnd Date Siddhartha Jones MD [address] [place] [phone] PCP - [facility]06/22/23Team MemberRelationshipSpecialtyStart DateEnd Date Siddhartha Jones MD [address] [place] [address] [facility] - [facility]06/22/23Team MemberRelationshipSpecialtyStart DateEnd Date Siddhartha Jones MD [address] [place] [address] [facility] - [facility]06/22/23 Siddhartha Jones MD [address] [place] [address] [facility]12/18/23Team MemberRelationshipSpecialtyStart DateEnd Date Siddhartha Jones MD [address] [place] [address] [facility] - [facility]06/22/23 Siddhartha Jones MD [address] [place] [address] [facility]12/18/23Team MemberRelationshipSpecialtyStart DateEnd Date Siddhartha Jones MD [address] [place] [address] [facility] - [facility]06/22/23 Siddhartha Jones MD [address] [place] [address] [facility]12/18/23Team MemberRelationshipSpecialtyStart DateEnd Date Siddhartha Jones MD [address] [place] [address] [facility]06/22/23 Siddhartha Jones MD [address] [place] [address] [facility]12/18/23Team MemberRelationshipSpecialtyStart DateEnd Date Siddhartha Jones MD [address] [place] [address] [facility]06/22/23 Siddhartha Jones MD [address] [place] [address] [facility]12/18/23Team MemberRelationshipSpecialtyStart DateEnd Date Siddhartha Jones MD [address] [place] [address] [facility]06/22/23 Siddhartha Jones MD [address] [place] [address] [facility]12/18/23Te MemberRelationshipSpecialtyStart DateEnd Date Siddhartha Jones MD [address] [place] [address] [facility]06/22/23 Siddhartha Jones MD [address] [place] [address] [facility]12/18/23Te MemberRelationshipSpecialtyStart DateEnd Date Siddhartha Jones MD [address] [place] [address] [facility]06/22/23 Siddhartah Jones MD [address] [place] [address] [facility]12/18/23Te MemberRelationshipSpecialtyStart DateEnd Date Siddhartha Jones MD [address] [place] [address] [facility]06/22/23 Siddhartha Jones MD [address] [place] [address] [facility]12/18/23Te MemberRelationshipSpecialtyStart DateEnd Date Siddhartha Jones MD [address] [place] [address] [facility] - [facility]06/22/23 Siddhartha Jones MD [address] [place] [address] [facility]12/18/23Te MemberRelationshipSpecialtyStart DateEnd Date Siddhartha Jones MD [address] [place] [address] [facility]06/22/23 Siddhartha Jones MD [address] [place] [address] [facility]12/18/23Te MemberRelationshipSpecialtyStart DateEnd Date Siddhartha Jones MD [address] [place] [address] [facility]06/22/23 Siddhartha Jones MD [address] [place] [address] [place] [address]Team MemberRelationshipSpecialtyStart DateEnd Date Siddhartha Jones MD [address] [place] [address] [facility]06/22/23 Siddhartha Jnoes MD [address] [place] [address]/24Team MemberRelationshipSpecialtyStart DateEnd Date Siddhartha Jones MD [facility]06/22/23 Siddhartha Jones MD [address] [place] [address] [facility]12/18/23Team MemberRelationshipSpecialtyStart DateEnd Date Siddhartha Jones MD [facility] Siddhartha Jones MD PCP - [facility]06/22/23 Siddhartha Jones MD [address] [place] [address] [facility]12/18/23 Team Status: Active Member Role/Relationship Status Dates Services Family [facility] Primary Care Provider Active Team Status: Active Member Role/Relationship Status Dates Services Family [facility] Primary Care Provider Active Start: January 09, 2025 Maldonado Mullen ProviderActiveStart: January 09, 2025 Team Status: Inactive Member Role/Relationship Status Dates Services Family [facility] Primary Care Provider Active Start: January 21, 2025 End: January 21, 2025[facility] TRACE Jonesttbeka ProviderActiveStart: January 21, 2025 End: January 21, 2025Team MemberRelationshipSpecialtyStart DateEnd Date Generic Provider, [place] [address] [facility] [id number]/[facility]/25 Goals (unrecognized section and content) Goals may be documented in a n alternate section FOR RECORDS PERTAINING TO PATIENTS WHO ARE [...] BE BASED ON THE PRIMARY CLINICAL RECORDS. [facility] [employer] [facility]. provides no warranty or guarantee of the accuracy or completeness of information in this document.
[2025-01-22 11:52] LABS: Hematocrit 41.9 % (42.0-54.0); Hemoglobin 13.9 g/dL (14.0-18.0); Immature Granulocytes Abs Auto 0.01 10^3/uL (0.00-0.03); Immature Granulocytes Pct Auto 0.2 % (0.0-0.5); Lymphocytes Absolute Auto 1.7 10^3/uL (1.2-3.8); Mean Corpuscular HGB Conc 33.2 g/dL (29.9-35.2); Mean Corpuscular Hemoglobin 30.8 pg (25.9-34.0); Mean Corpuscular Volume 92.9 fL (80.0-94.0); Platelet Count 263 10^3/uL (150-450); Red Blood Count 4.51 10^6/uL (4.70-6.10); White Blood Count 6.6 10^3/uL (4.0-11.0)
[2025-01-22 12:34] LABS: Alanine Aminotransferase 17 U/L (16-63); Albumin Globulin Ratio 0.8; Albumin Level 3.2 g/dL (3.4-5.0); Alkaline Phosphatase 100 U/L (46-116); Anion Gap 12.8; Aspartate Amino Transferase 14 U/L (15-37); Blood Urea Nitrogen 8.0 mg/dL (7.0-18.0); Calcium 8.8 mg/dL (8.5-10.1); Carbon Dioxide 27.3 mmol/L (21.0-32.0); Chloride 102 mmol/L (98-107); Cholesterol 141 mg/dL (<=200); Estimated GFR (African America >60 (>=60 mL/min/1.73m^2); Estimated GFR (Non-African Ame >60 (>=60 mL/min/1.73m^2); Globulin 3.9 g/dL; Glucose 99 mg/dL (74-106); HDL Cholesterol 73 mg/dL (40-60); Potassium 4.1 mmol/L (3.5-5.1); Sodium 138 mmol/L (136-145); Thyroid Stimulating Hormone 0.778 uIU/mL (0.358-3.740); Total Protein 7.1 g/dL (6.4-8.2); Triglycerides 49 mg/dL (<=150); VLDL CHOLESTEROL 9.8 mg/dL
== END 2025-01-22 11:31 | disposition home or self-care (01) ==
LOC: LAB 11:31
PROVIDERS: PCP Family Medicine; Visit Provider Family Medicine
DX: Z00.00 Encounter for general adult medical examination without abnormal findings (principal); E03.9 Hypothyroidism, unspecified; Z12.5 Encounter for screening for malignant neoplasm of prostate
CPT/HCPCS: 36415; 80053; 80061; 83036; 84439; 84443; 85025; G0103

== ENCOUNTER 2025-02-27 11:27 | Outpatient (OUT) | payer OTHER, SELFPAY ==
[2025-02-27 12:24] LABS: Anion Gap 8.4; Blood Urea Nitrogen 5.0 mg/dL (7.0-18.0); Calcium 9.0 mg/dL (8.5-10.1); Carbon Dioxide 30.4 mmol/L (21.0-32.0); Chloride 100 mmol/L (98-107); Estimated GFR (African America >60 (>=60 mL/min/1.73m^2); Estimated GFR (Non-African Ame >60 (>=60 mL/min/1.73m^2); Glucose 127 mg/dL (74-106); Potassium 3.8 mmol/L (3.5-5.1); Sodium 135 mmol/L (136-145)
== END 2025-02-27 11:28 | disposition home or self-care (01) ==
PROVIDERS: PCP Family Medicine
DX: Z01.818 Encounter for other preprocedural examination (principal); R91.1 Solitary pulmonary nodule
CPT/HCPCS: 36415; 80048

== ENCOUNTER 2025-03-02 12:16 | Outpatient (OUT) | payer OTHER, SELFPAY ==
[2025-03-02 12:35] LABS: Hematocrit 44.7 % (42.0-54.0); Hemoglobin 14.4 g/dL (14.0-18.0); Immature Granulocytes Abs Auto 0.02 10^3/uL (0.00-0.03); Immature Granulocytes Pct Auto 0.3 % (0.0-0.5); Lymphocytes Absolute Auto 2.1 10^3/uL (1.2-3.8); Mean Corpuscular HGB Conc 32.2 g/dL (29.9-35.2); Mean Corpuscular Hemoglobin 30.5 pg (25.9-34.0); Mean Corpuscular Volume 94.7 fL (80.0-94.0); Platelet Count 270 10^3/uL (150-450); Red Blood Count 4.72 10^6/uL (4.70-6.10); White Blood Count 7.4 10^3/uL (4.0-11.0)
== END 2025-03-02 12:17 | disposition home or self-care (01) ==
LOC: LAB 12:19
PROVIDERS: PCP Family Medicine
DX: R91.1 Solitary pulmonary nodule (principal); Z01.818 Encounter for other preprocedural examination; Z01.812 Encounter for preprocedural laboratory examination
CPT/HCPCS: 36415; 85025